=== PATIENT | female | born 1935 | race Caucasian/White ===

== ENCOUNTER → 2016-11-26 | Outpatient (REF) | payer MEDICARE, SELFPAY ==
[2016-11-26 22:41] LABS: International Normalized Ratio 1.9; Prothrombin Time (Protime)PT. 20.8 SECONDS (11.7-14.9)
[2016-11-26 22:59] LABS: Digoxin Level 0.98 ng/mL (0.80-2.00)
== END | disposition home or self-care (01) ==
LOC: OLS.DANBUR 22:10
PROVIDERS: Family Provider Family Medicine Geriatric Medicine; PCP Family Medicine Geriatric Medicine
DX: I48.91 Unspecified atrial fibrillation (principal); N17.9 Acute kidney failure, unspecified; Z51.81 Encounter for therapeutic drug level monitoring
CPT/HCPCS: 80162; 85610

== ENCOUNTER 2017-03-12 14:21 | Outpatient (RCR) | payer MEDICARE, SELFPAY ==
[2017-03-12 15:25] LABS: Color, Urine Yellow (Yellow); Glucose, Dipstick Normal (Normal); Ketone-Dipstick Negative (Negative); Leukocyte Esterase-Dipstick Negative /ul (Negative); Nitrite-Dipstick Negative (Negative); Occult Blood-Urine Negative /ul (Negative); Protein-Dipstick Negative (Negative); Specific Gravity, Urine 1.015 (1.002-1.030); Urine Bilirubin Dipstick Negative (Negative); Urine Clarity Clear (Clear); Urine Urobilinogen Normal (Normal)
== END 2017-03-18 23:59 ==
LOC: HHLAB 14:21
PROVIDERS: Family Provider Family Medicine Geriatric Medicine; PCP Family Medicine Geriatric Medicine; Visit Provider Family Medicine Geriatric Medicine
DX: R30.0 Dysuria (principal)
CPT/HCPCS: 81002; 87086; 87088

== ENCOUNTER → 2017-03-30 13:14 | Outpatient (CLI) | payer MEDICARE, SELFPAY ==
[2017-03-30 13:17] LABS: Bacteria 0 SEEN /hpf (None Seen); Mucous, Urine 0 SEEN /hpf (<or=2+); Red Blood Cells-Urine 0 SEEN /hpf (0-5)
[2017-03-30 16:41] LABS: Color, Urine Yellow (Yellow); Glucose, Dipstick Normal (Normal); Ketone-Dipstick Negative (Negative); Leukocyte Esterase-Dipstick 25 /ul (Negative); Nitrite-Dipstick Negative (Negative); Occult Blood-Urine Negative /ul (Negative); Protein-Dipstick 30 mg/dl (Negative); Urine Bilirubin Dipstick Negative (Negative); Urine Clarity Clear (Clear); Urine Urobilinogen Normal (Normal)
[2017-03-30 16:55] LABS: Squamous Epithelial Cells - UA 0-5 SEEN /hpf (5-10); White Blood Cells 0-5 SEEN /hpf (0-5)
== END ==
PROVIDERS: Family Provider Family Medicine; PCP Family Medicine; Visit Provider Family Medicine
DX: N39.0 Urinary tract infection, site not specified (principal)
CPT/HCPCS: 81001; 87086; 87088

== ENCOUNTER 2017-04-10 13:01 | Outpatient (RCR) | payer MEDICARE, SELFPAY ==
[2017-04-10 14:11] LABS: Color, Urine Yellow (Yellow); Glucose, Dipstick Normal (Normal); Ketone-Dipstick Negative (Negative); Leukocyte Esterase-Dipstick 25 /ul (Negative); Nitrite-Dipstick Negative (Negative); Occult Blood-Urine Negative /ul (Negative); Protein-Dipstick 30 mg/dl (Negative); Specific Gravity, Urine 1.015 (1.002-1.030); Urine Bilirubin Dipstick Negative (Negative); Urine Clarity Sl. Cloudy (Clear); Urine Urobilinogen Normal (Normal)
== END 2017-04-15 23:59 ==
LOC: HHLAB 13:01
PROVIDERS: Family Provider Family Medicine; PCP Family Medicine; Visit Provider Family Medicine Geriatric Medicine
DX: R30.0 Dysuria (principal); E11.9 Type 2 diabetes mellitus without complications; I11.0 Hypertensive heart disease with heart failure; I50.32 Chronic diastolic (congestive) heart failure
CPT/HCPCS: 81002; 87086; 87088

== ENCOUNTER 2017-05-27 17:58 | Emergency (ER) | payer MEDICARE, SELFPAY ==
[2017-05-27 18:01] VITALS: BP 153/79; PULSE 74; RESP 16; TEMP 37.1; O2SAT 94; BMI 25.7
--- NOTE | 2017-05-27 18:23 | CT_ITS ---
STUDY: CT BRAIN WITHOUT CONTRAST REASON FOR EXAM: Female, 82 years old. Trauma RADIATION DOSAGE (If Supplied By Facility): CTDIvol = ( 44.99 ) mGy, DLP = ( 829.85 ) mGycm TECHNIQUE: Transaxial CT imaging of the brain was performed without administration of intravenous contrast material. Individualized dose optimization techniques were used for this CT. COMPARISON: Prior study of 12/03/2016 FINDINGS: There is a small scalp hematoma of the right frontal region. There is no evidence of calvarial fracture. There is hyperostosis frontalis interna. Normal size ventricles and extra-axial spaces for the patient's age. There are areas of decreased attenuation within the white matter tracts of the supratentorial brain, consistent with microvascular disease changes. Normal basal ganglia and thalami. Normal brainstem. Normal cerebellum. There is no intracranial hemorrhage. There are no findings of an acute ischemic infarction. Normal visualized paranasal sinuses. CT/Brain/Head without Contrast IMPRESSION: Chronic involutional changes of the brain. Small scalp hematoma of the right frontal region. Hyperostosis frontalis interna which is of no clinical significance. There is no intracranial hemorrhage or calvarial fracture. Electronically Signed: Bon Mora MD at 19:22 EDT , Service support ,
[2017-05-27 19:14] VITALS: BP 148/77; PULSE 75; RESP 16; O2SAT 94
--- NOTE | 2017-05-27 20:09 | ED.RN ---
PT PASSED AMBULATION WITH WALKER.
--- NOTE | 2017-05-27 20:14 | ED.VISSUMM ---
- ER Visit Summary Date of Service: 05/27/17 Chief Complaint: Fall History of Present Illness: The patient is a 82 F who states that she lost her balance while rushing to the bathroom and using her walker. She fell. She did strike her head. She did not lose consciousness. Patient states she has right shoulder pain from a fall last September that is not changed from her baseline. Patient has no vision changes, nausea, or vomiting. Patient is currently on Eliquis for A. fib and DVT. Physical Examination: Vital signs are unremarkable. Patient's lying in bed no acute distress. She is alert and talkative. Head neck examination reveals an approximate 3 cm diameter hematoma on the superior aspect of the right forehead. No open wounds are noted. TMs are clear with no hemotympanum. She has no C-spine tenderness. Heart is regular rate and rhythm. On lung sounds are clear. Abdomen is soft nontender. Extremity examination reveals no focal tenderness over the shoulders. She has good strength and sensation. Test Results: CT scan of the head reveals small scalp hematoma the right frontal region. There are chronic involutional changes noted. No intracranial hemorrhage noted. Emergency Department Course and Treatment: On repeat examination patient is resting comfortably with no complaints. She is able to get up and ambulate with her walker without difficulty. She will be discharged with her son at this time. Treatment Plan: [] Disposition: Discharge Impression: 1. Mechanical fall 2. Head contusion This note was generated with [employer] dictation software. It may contain incorrect words, spelling, and punctuation that were not noted in review of the chart prior to signing ED Disposition - Plan for ED Patient: Disposition: Home or Assisted Living Chief Complaint: Head Injury Instructions: ED Head Injury Closed, ED Hematoma Referrals: Saroj Fajardo DO [Primary Care Provider] - As Needed
[2017-05-27 20:29] VITALS: BP 154/90; PULSE 74; RESP 16; O2SAT 94
== END 2017-05-27 20:29 | disposition home or self-care (01) ==
PROVIDERS: Emergency Provider Emergency Medicine; Family Provider Family Medicine; PCP Family Medicine
DX: S00.83XA Contusion of other part of head, initial encounter (principal); W01.10XA Fall on same level from slipping, tripping and stumbling with subsequent striking against unspecified object, initial encounter; Y93.01 Activity, walking, marching and hiking; Y92.9 Unspecified place or not applicable; Y99.9 Unspecified external cause status; I11.0 Hypertensive heart disease with heart failure; I50.9 Heart failure, unspecified; I48.91 Unspecified atrial fibrillation; E11.9 Type 2 diabetes mellitus without complications; F03.90 Unspecified dementia, unspecified severity, without behavioral disturbance, psychotic disturbance, mood disturbance, and anxiety; K21.9 Gastro-esophageal reflux disease without esophagitis; Z79.01 Long term (current) use of anticoagulants; Z79.899 Other long term (current) drug therapy; Z86.718 Personal history of other venous thrombosis and embolism
CPT/HCPCS: 70450; 99284

== ENCOUNTER → 2017-09-23 11:34 | Outpatient (CLI) | payer MEDICARE, SELFPAY ==
[2017-09-23 12:30] LABS: Absolute Lymphocyte Count 1.27 X10^3/ul (0.83-4.51); Absolute Neutrophil Count 3.6 X10^3/uL (2.0-7.7); Basophil# 0.01 X10^3/uL; Basophil% 0.2 % (0-1); Eosinophil# 0.16 X10^3/uL; Eosinophils% 2.9 % (0-5); Hematocrit 46.9 % (37-47); Hemoglobin 15.1 g/dl (12.0-15.0); Lymphocyte # 1.27 X10^3/ul (4.0); Lymphocyte % 22.9 % (19-41); Mean Corp Hgb Conc 32.2 g/gl (32-36); Mean Platelet Vol. 10.6 fl (6.2-12.0); Monocyte# 0.45 X10^3/uL; Monocyte% 8.1 % (0-10); Neutrophil # 3.64 X10^3/uL (2.7-7.7); Neutrophil % 65.7 % (47-70); Platelet Count 165 K/mm3 (150-450); RBC Distribution Width CV 14.9 % (11.6-14.6); Red Blood Count 5.39 M/mm3 (4.2-5.4); White Blood Count 5.5 K/mm3 (4.4-11.0)
[2017-09-23 12:32] LABS: POSITIVE COUNT NO; POSITIVE DIFFERENTIAL NO; POSITIVE MORPHOLOGY NO
[2017-09-23 12:57] LABS: Hemoglobin A1c 6.9 % (4.2-6.3)
[2017-09-23 13:23] LABS: ALB/GLOB Ratio 0.9 RATIO (0.9-2.4); AST(SGOT) 16 U/L (15-37); Alanine Aminotransfer ALT/SGPT 15 U/L (13-56); Albumin, Serum 3.7 g/dL (3.2-5.0); Alkaline Phosphatase 74 U/L (45-117); Anion Gap 7 (5-15); BUN 30 mg/dL (7-18); BUN/Creat Ratio 33.2 RATIO (10-20); Calcium,Total 9.7 mg/dL (8.5-10.1); Chloride 107 mmol/L (98-107); Cholesterol 180 mg/dL (200); EST Glomerular Filtration Rate 63 mL/min (>60); Est Glom Filt Rate - Afr Amer 77 mL/min (>60); Glucose 163 mg/dL (74-106); High Density Lipoprotein 55 mg/dL; Potassium 4.3 mmol/L (3.5-5.1); Protein, Total 7.7 g/dL (6.4-8.2); Sodium Level 141 mmol/L (136-145); Thyroid Stim Hormone (TSH) 3.54 uIU/mL (0.358-3.74); Triglycerides 168 mg/dL; Very Low Density Lipoprotein 34 mg/dL (5-40)
== END ==
PROVIDERS: Family Provider Family Medicine; PCP Family Medicine; Visit Provider Family Medicine
DX: E11.9 Type 2 diabetes mellitus without complications (principal); I50.9 Heart failure, unspecified; E78.5 Hyperlipidemia, unspecified; E03.9 Hypothyroidism, unspecified
CPT/HCPCS: 36415; 80053; 80061; 83036; 84443; 85025

== ENCOUNTER → 2017-09-25 15:33 | Outpatient (CLI) | payer MEDICARE, SELFPAY ==
[2017-09-25 16:28] LABS: Microalbumin:Creatinine Ratio 181.4 mg/g CRE (<30 mg/g CRE)
== END ==
PROVIDERS: Family Provider Family Medicine; PCP Family Medicine; Visit Provider Family Medicine
DX: E11.9 Type 2 diabetes mellitus without complications (principal); I50.9 Heart failure, unspecified; E78.5 Hyperlipidemia, unspecified; E03.9 Hypothyroidism, unspecified
CPT/HCPCS: 82043; 82570

== ENCOUNTER → 2017-12-02 13:48 | Outpatient (CLI) | payer MEDICARE, SELFPAY ==
[2017-12-02 13:52] LABS: Mucous, Urine 0 SEEN /hpf (<or=2+)
[2017-12-02 15:49] LABS: Absolute Lymphocyte Count 1.18 X10^3/ul (0.83-4.51); Absolute Neutrophil Count 4.1 X10^3/uL (2.0-7.7); Basophil# 0.02 X10^3/uL; Basophil% 0.3 % (0-1); Eosinophil# 0.15 X10^3/uL; Eosinophils% 2.5 % (0-5); Hematocrit 45.2 % (37-47); Hemoglobin 14.8 g/dl (12.0-15.0); Lymphocyte # 1.18 X10^3/ul (4.0); Lymphocyte % 19.6 % (19-41); Mean Corp Hgb Conc 32.7 g/gl (32-36); Mean Corpuscular Hgb 28.7 pg (27.0-32.0); Mean Corpuscular Volume 87.8 fL (81-99); Mean Platelet Vol. 11.2 fl (6.2-12.0); Monocyte% 8.3 % (0-10); Neutrophil # 4.13 X10^3/uL (2.7-7.7); Neutrophil % 68.8 % (47-70); Platelet Count 173 K/mm3 (150-450); RBC Distribution Width CV 14.7 % (11.6-14.6); Red Blood Count 5.15 M/mm3 (4.2-5.4)
[2017-12-02 15:55] LABS: POSITIVE COUNT NO; POSITIVE DIFFERENTIAL NO; POSITIVE MORPHOLOGY NO
[2017-12-02 15:56] LABS: Ferritin 78 ng/mL (8-252); Iron 94 ug/dL (50-170)
[2017-12-02 16:06] LABS: Color, Urine Yellow (Yellow); Glucose, Dipstick Normal (Normal); Ketone-Dipstick Negative (Negative); Leukocyte Esterase-Dipstick 500 /ul (Negative); Nitrite-Dipstick Negative (Negative); Occult Blood-Urine 150 /ul (Negative); Protein-Dipstick 30 mg/dl (Negative); Specific Gravity, Urine 1.015 (1.002-1.030); Urine Bilirubin Dipstick Negative (Negative); Urine Clarity Cloudy (Clear); Urine Urobilinogen Normal (Normal)
[2017-12-02 16:16] LABS: Red Blood Cells-Urine 25-50 SEEN /hpf (0-5); Squamous Epithelial Cells - UA 0-5 SEEN /hpf (5-10); White Blood Cells 50-100 SEEN /hpf (0-5)
[2017-12-02 16:17] LABS: Bacteria RARE /hpf (None Seen); Yeast-Urine 1+ /hpf (None Seen)
== END ==
PROVIDERS: Family Provider Family Medicine; PCP Family Medicine; Visit Provider Family Medicine
DX: R30.0 Dysuria (principal); E11.21 Type 2 diabetes mellitus with diabetic nephropathy; D50.9 Iron deficiency anemia, unspecified; I10 Essential (primary) hypertension; E78.5 Hyperlipidemia, unspecified
CPT/HCPCS: 36415; 81001; 82728; 83036; 83540; 85025; 87086; 87088; 87186

== ENCOUNTER 2018-02-15 13:26 | Emergency (ER) | payer MEDICARE, SELFPAY ==
[2018-02-15 13:28] VITALS: BP 168/76; PULSE 95; RESP 18; TEMP 36.8; O2SAT 88; BMI 26.6
[2018-02-15 14:06] LABS: Absolute Lymphocyte Count 0.93 X10^3/ul (0.83-4.51); Absolute Neutrophil Count 6.3 X10^3/uL (2.0-7.7); Eosinophil# 0.06 X10^3/uL; Eosinophils% 0.8 % (0-5); Hematocrit 42.8 % (37-47); Hemoglobin 14.2 g/dl (12.0-15.0); Lymphocyte # 0.93 X10^3/ul (4.0); Lymphocyte % 11.9 % (19-41); Mean Corp Hgb Conc 33.2 g/gl (32-36); Mean Corpuscular Hgb 28.5 pg (27.0-32.0); Mean Corpuscular Volume 85.8 fL (81-99); Mean Platelet Vol. 10.1 fl (6.2-12.0); Monocyte# 0.53 X10^3/uL; Monocyte% 6.8 % (0-10); Neutrophil % 80.4 % (47-70); POSITIVE COUNT NO; POSITIVE DIFFERENTIAL NO; POSITIVE MORPHOLOGY NO; Platelet Count 143 K/mm3 (150-450); RBC Distribution Width CV 13.7 % (11.6-14.6); RBC Distribution Width SD 42.9 fl (35.1-43.9); Red Blood Count 4.99 M/mm3 (4.2-5.4); White Blood Count 7.8 K/mm3 (4.4-11.0)
[2018-02-15 14:09] VITALS: PULSE 80; RESP 16; TEMP 36.7; O2SAT 96
[2018-02-15 14:23] LABS: AST(SGOT) 9 U/L (15-37); Alanine Aminotransfer ALT/SGPT 16 U/L (13-56); Albumin, Serum 3.4 g/dL (3.2-5.0); Alkaline Phosphatase 73 U/L (45-117); Anion Gap 12 (5-15); BUN 21 mg/dL (7-18); BUN/Creat Ratio 27.5 RATIO (10-20); Calcium,Total 9.3 mg/dL (8.5-10.1); Chloride 105 mmol/L (98-107); Creatinine, Serum 0.76 mg/dL (0.55-1.02); EST Glomerular Filtration Rate 77 mL/min (>60); Est Glom Filt Rate - Afr Amer 93 mL/min (>60); Globulin 3.4 g/dL (2.2-4.2); Glucose 219 mg/dL (74-106); Lipase 121 U/L (73-393); Potassium 3.7 mmol/L (3.5-5.1); Protein, Total 6.8 g/dL (6.4-8.2); Sodium Level 142 mmol/L (136-145)
--- NOTE | 2018-02-15 14:37 | ED.DCSUM_ITS ---
- ER Visit Summary Date of Service: 02/15/18 Chief Complaint: Nausea vomiting diarrhea History of Present Illness: The patient is a 82 F who has had nausea vomiting and diarrhea. Is been ongoing for the past 5 days. She has some mild abdominal pain with it. She complains of diarrhea with some darkness in it. She vomited twice. She tried cholestyramine and Imodium to help with the diarrhea. She has not had a fever. No other sick contacts at home. She does have a history of A. fib and DVT. Physical Examination: Vital signs reviewed. HEENT exam unremarkable. Heart is regular rate and rhythm without murmurs. Lungs are clear to auscultation. Abdomen is soft and nontender. Extremities reveal no edema. Skin exam normal. Neurologic exam normal. Test Results: Hemoglobin is normal. BUN 21. AST 9 Emergency Department Course and Treatment: Patient was given a liter of fluids. She feels much better. She does not want to stay in the hospital. I feels appropriate to treat her as an outpatient with [facility]. She will follow-up with her PCP Treatment Plan: [] Disposition: Discharge Impression: Nausea vomiting and diarrhea This note was generated with [employer] dictation software. It may contain incorrect words, spelling, and punctuation that were not noted in review of the chart prior to signing ED Disposition - Plan for ED Patient: Chief Complaint: Nausea/Vomiting/Diarrhea Referrals: Saroj Fajardo DO [Primary Care Provider] -
--- NOTE | 2018-02-15 14:37 | ED.DEP ---
ED Disposition - Plan for ED Patient: Disposition: Home or Assisted Living Chief Complaint: Nausea/Vomiting/Diarrhea Instructions: ED Gastroenteritis Viral Prescriptions: Ondansetron [Zofran Odt] 4 mg PO Q8H PRN PRN #10 tab PRN Reason: Nausea Diphenoxylate/Atrop [Lomotil] 1 tab PO TID PRN PRN #15 tab PRN Reason: Diarrhea Referrals: Saroj Fajardo DO [Primary Care Provider] -
[2018-02-15 15:37] VITALS: BP 152/76; PULSE 78; RESP 17; O2SAT 95
--- NOTE | 2018-02-15 15:38 | ED.RN ---
REVIEWED D/C INSTRUCTIONS, FOLLOW UP CARE, PRESCRIPTIONS, AND S/S THAT WOULD WARRANT A RETURN TO THE ED WITH PT. PT VERBALIZED AN UNDERSTANDING AND DENIES FURTHER QUESTIONS FOR THIS RN. PT SKIN P/W/D, RESP EVEN AND UNLABORED, PT A&O X 3, NO DISTRESS NOTED. PT ASSISTED OUT OF ED IN WHEELCHAIR.
== END 2018-02-15 15:39 | disposition home or self-care (01) ==
PROVIDERS: Emergency Provider Emergency Medicine; Family Provider Family Medicine; PCP Family Medicine
DX: R11.2 Nausea with vomiting, unspecified (principal); R19.7 Diarrhea, unspecified; R10.9 Unspecified abdominal pain; I48.91 Unspecified atrial fibrillation; I50.9 Heart failure, unspecified; K21.9 Gastro-esophageal reflux disease without esophagitis; F32.9 Major depressive disorder, single episode, unspecified; Z79.01 Long term (current) use of anticoagulants; Z79.899 Other long term (current) drug therapy; Z86.718 Personal history of other venous thrombosis and embolism
CPT/HCPCS: 80053; 83690; 85025; 96360; 96361; 99285; J7040; J2405

== ENCOUNTER → 2018-04-21 13:10 | Outpatient (CLI) | payer MEDICARE, SELFPAY ==
[2018-04-21 13:12] LABS: Bacteria 0 SEEN /hpf (None Seen)
[2018-04-21 16:30] LABS: Color, Urine Yellow (Yellow); Glucose, Dipstick Normal (Normal); Ketone-Dipstick Negative (Negative); Leukocyte Esterase-Dipstick 500 /ul (Negative); Nitrite-Dipstick Positive (Negative); Occult Blood-Urine 25 /ul (Negative); Protein-Dipstick 30 mg/dl (Negative); Specific Gravity, Urine 1.015 (1.002-1.030); Urine Bilirubin Dipstick Negative (Negative); Urine Clarity Cloudy (Clear); Urine Urobilinogen Normal (Normal)
[2018-04-21 16:41] LABS: Mucous, Urine 2+ /hpf (<or=2+); Red Blood Cells-Urine 0 SEEN /hpf (0-5); Squamous Epithelial Cells - UA 10-25 SEEN /hpf (5-10); White Blood Cells >100 SEEN /hpf (0-5)
== END ==
PROVIDERS: Family Provider Family Medicine; PCP Family Medicine; Visit Provider Family Medicine
DX: R19.7 Diarrhea, unspecified (principal); R15.9 Full incontinence of feces; R15.2 Fecal urgency; R30.0 Dysuria
CPT/HCPCS: 81001; 83630; 87077; 87086; 87088; 87177; 87186; 87209; 87493; 87506

== ENCOUNTER 2018-04-28 01:21 | Inpatient (IN) | payer MEDICARE, SELFPAY ==
[2018-04-28] VITALS (15 sets, daily range): BP systolic 108–134; BP diastolic 44–74; PULSE 75–118; RESP 16–30; TEMP 36.8–38.2; O2SAT 89–95; BMI 25.8; BMI 25.2
--- NOTE | 2018-04-28 01:45 | RAD_ITS ---
STUDY: X-RAY CHEST REASON FOR EXAM: Female, 83 years old. Shortness of breath TECHNIQUE: Frontal and lateral views of the chest. COMPARISON: December 03, 2016. FINDINGS: Chronic lung changes. Low lung volumes. No pneumothorax. No pleural effusion. No focal consolidation. Normal size heart. Aortic calcifications. Dual-lead cardiac pacemaker device on the left. EKG leads artifacts. There are diffuse degenerative changes of the visualized thoracic spine. There is degenerative osteoarthritis of the bilateral shoulders. IVC filter. RAD/Chest PA and Lateral IMPRESSION: Chronic changes. No acute cardiopulmonary disease identified. Electronically Signed: Adrien Shabazz, at 2:51 EDT Tel , Service support ,
--- NOTE | 2018-04-28 01:45 | EKG12_ITS ---
Test Reason : Blood Pressure : / mmHG Vent. Rate : 110 BPM Atrial Rate : 110 BPM P-R Int : 146 ms QRS Dur : 164 ms QT Int : 396 ms P-R-T Axes : 065 -60 103 degrees QTc Int : 535 ms Atrial-sensed ventricular-paced rhythm Abnormal ECG Confirmed by CHI SAEZ, OREN ([id number]), editorial writer YURY HERNANDEZ ([id number]) on 04/29/2018 11:27:01 AM Referred By: Anisa Benjamin Confirmed By:OREN MIRELES MD
--- NOTE | 2018-04-28 01:46 | CT_ITS ---
STUDY: CT BRAIN WITHOUT CONTRAST REASON FOR EXAM: Female, 83 years old. Trauma RADIATION DOSAGE (If Supplied By Facility): CTDIvol = ( 44.99 ) mGy, DLP = ( 812.98 ) mGycm TECHNIQUE: Transaxial CT imaging of the brain was performed without administration of intravenous contrast material. Individualized dose optimization techniques were used for this CT. COMPARISON: None. FINDINGS: Normal soft tissue structures. There is hyperostosis frontalis internus. There is mild cerebral atrophy with widening of the extra-axial spaces and ventricular dilatation. There are areas of decreased attenuation within the white matter tracts of the supratentorial brain, consistent with microvascular disease changes. Normal basal ganglia and thalami. Normal brainstem. Normal cerebellum. There is no intracranial hemorrhage. There are no findings of an acute ischemic infarction. Paranasal sinus disease. Carotid and vertebral artery calcifications. CT/Brain/Head without Contrast IMPRESSION: Chronic involutional and white matter changes. No acute territorial infarct or intracranial hemorrhage. If patient's symptomology persists or there is continuing clinical concern MRI or follow-up CT scan can be performed. Electronically Signed: Adrien Shabazz, at 3:27 EDT Tel , Service support ,
--- NOTE | 2018-04-28 01:46 | CT_ITS ---
STUDY: CT CERVICAL SPINE WITHOUT CONTRAST REASON FOR EXAM: Female, 83 years old. Trauma RADIATION DOSAGE (If Supplied By Facility): CTDIvol = ( 18.36 ) mGy, DLP = ( 335.85 ) mGycm TECHNIQUE: High resolution transaxial imaging was performed without contrast material. Sagittal and coronal images were reconstructed. Individualized dose optimization techniques were used for this CT. COMPARISON: None FINDINGS: Normal cervical lordosis. Multilevel degenerative changes of the cervical spine. No acute fracture or subluxation identified. Facet arthropathy. Normal visualized soft tissue structures. CT/Spine Cervical without Contras IMPRESSION: Multilevel degenerative changes. No acute fracture or subluxation. Electronically Signed: Adrien Shabazz, at 3:32 EDT Tel , Service support ,
--- NOTE | 2018-04-28 01:46 | RAD_ITS ---
STUDY: X-RAY - RIGHT SHOULDER REASON FOR EXAM: Female, 83 years old. Patient fell TECHNIQUE: 4 view(s) of the shoulder. COMPARISON: None. FINDINGS: There are degenerative changes of the acromioclavicular joint. The glenohumeral articulation is well-maintained. Severe kyphosis of the thoracic spine. No fracture RAD/Shoulder min 2 Views IMPRESSION: No fracture. Degenerative changes of the acromioclavicular joint Electronically Signed: Jonathon Paige MD at 3:37 EDT Tel , Service support ,
[2018-04-28 02:18] LABS: Absolute Neutrophil Count 5.7 X10^3/uL (2.0-7.7); Basophil# 0.02 X10^3/uL; Basophil% 0.3 % (0-1); Eosinophil# 0.01 X10^3/uL; Eosinophils% 0.1 % (0-5); Hematocrit 44.1 % (37-47); Hemoglobin 14.5 g/dl (12.0-15.0); International Normalized Ratio 1.2; Lymphocyte % 7.5 % (19-41); Mean Corp Hgb Conc 32.9 g/gl (32-36); Mean Corpuscular Hgb 28.5 pg (27.0-32.0); Mean Corpuscular Volume 86.8 fL (81-99); Mean Platelet Vol. 10.7 fl (6.2-12.0); Monocyte# 0.48 X10^3/uL; Monocyte% 7.2 % (0-10); Neutrophil # 5.68 X10^3/uL (2.7-7.7); Neutrophil % 84.6 % (47-70); Platelet Count 114 K/mm3 (150-450); Prothrombin Time (Protime)PT. 15.2 SECONDS (11.7-14.9); RBC Distribution Width CV 14.5 % (11.6-14.6); Red Blood Count 5.08 M/mm3 (4.2-5.4); White Blood Count 6.7 K/mm3 (4.4-11.0)
[2018-04-28 02:19] LABS: Differential Indicated SCAN CRITERIA MET; POSITIVE COUNT NO; POSITIVE DIFFERENTIAL YES; POSITIVE MORPHOLOGY NO; Partial Thromboplast Time 28.3 Seconds (24.1-36.2)
[2018-04-28 02:26] LABS: AST(SGOT) 20 U/L (15-37); Alanine Aminotransfer ALT/SGPT 19 U/L (13-56); Albumin, Serum 3.5 g/dL (3.2-5.0); Alkaline Phosphatase 87 U/L (45-117); Anion Gap 10 (5-15); BUN 23 mg/dL (7-18); BUN/Creat Ratio 22.1 RATIO (10-20); Calcium,Total 8.8 mg/dL (8.5-10.1); Chloride 105 mmol/L (98-107); Creatinine, Serum 1.04 mg/dL (0.55-1.02); EST Glomerular Filtration Rate 54 mL/min (>60); Est Glom Filt Rate - Afr Amer 65 mL/min (>60); Estimated Creatinine Clearance 39.86 ml/min; Globulin 3.4 g/dL (2.2-4.2); Glucose 201 mg/dL (74-106); Potassium 4.6 mmol/L (3.5-5.1); Protein, Total 6.9 g/dL (6.4-8.2); Sodium Level 134 mmol/L (136-145)
[2018-04-28 02:36] LABS: Lactic Acid 2.7 mmol/L (0.4-2.0)
--- NOTE | 2018-04-28 02:59 | ED.RN ---
DR. SANTOS INFORMED OF PT LACTIC.
--- NOTE | 2018-04-28 03:13 | PCM.HP.STD ---
Problem List (1) UTI (urinary tract infection) Status: Acute Qualifiers: Urinary tract infection type: acute cystitis Hematuria presence: without hematuria Qualified Code(s): N30.00 - Acute cystitis without hematuria (2) Elevated lactic acid level Status: Acute (3) CKD (chronic kidney disease) stage 3, GFR 30-59 ml/min Status: Chronic (4) Sick sinus syndrome Status: Chronic (5) Atrial fibrillation Status: Chronic Qualifiers: Atrial fibrillation type: paroxysmal Qualified Code(s): I48.0 - Paroxysmal atrial fibrillation (6) Cardiomyopathy, nonischemic Status: Chronic (7) HLD (hyperlipidemia) Status: Chronic Qualifiers: Hyperlipidemia type: mixed hyperlipidemia Qualified Code(s): E78.2 - Mixed hyperlipidemia (8) HTN (hypertension) Status: Chronic Qualifiers: Hypertension type: essential hypertension Qualified Code(s): I10 - Essential (primary) hypertension (9) Hypothyroidism Status: Chronic Qualifiers: Hypothyroidism type: unspecified Qualified Code(s): E03.9 - Hypothyroidism, unspecified (10) Chronic diastolic (congestive) heart failure Status: Chronic (11) Iron deficiency anemia Status: Chronic Qualifiers: Iron deficiency anemia type: unspecified iron deficiency Qualified Code(s): D50.9 - Iron deficiency anemia, unspecified (12) GERD (gastroesophageal reflux disease) Status: Chronic Qualifiers: Esophagitis presence: esophagitis presence not specified Qualified Code(s): K21.9 - Gastro-esophageal reflux disease without esophagitis (13) Cardiac pacemaker in situ Status: Chronic (14) DM2 (diabetes mellitus, type 2) Status: Chronic Qualifiers: Diabetes mellitus superintendent container terminal insulin use: without senior care use Diabetes mellitus complication status: with unspecified complications Qualified Code(s): E11.8 - Type 2 diabetes mellitus with unspecified complications History of Present Illness Date of Admission: 04/28/18 Chief Complaint: Fall, debility The patient is an 83 y/o F w/ PMHx: Chronic atrial fibrillation, Non-ischemic Cardiomyopathy, Chronic Diastolic CHF, Diabetes mellitus type II, Gout, Pulmonary HTN, Overweight, Anxiety and Depression, Hypothyroidism, History of Sick sinus syndrome, Former Tobacco use who presents to the [facility] ED on 04/28/18 with history of recent fall at home secondary to her walker being mildly out of reach in addition to notably worsened weakness recently with acute UTI, falling onto her walker initially on her right shoulder and eventually falling onto the front of her head on a garbage can with no loss of consciousness with acute on chronic right shoulder discomfort following. She does note that she was recently initiated on antibiotic therapy for urinary tract infection with review of prior results noting presumptive E. coli and enterococcal faecalis UTI on 04/21/18 resistance only to streptomycin and tetracycline otherwise near garcia sensitivity. She states she has continued to have some dysuria, nausea, poor oral intake since recent UTI diagnosis despite recent antibiotic therapy which she cannot recall. Work-up in the ED included T 98.6, heart rate 118, BP 110/62, respiratory rate 18, initially 89% on room room air--> 95% on 2 L nasal cannula, BC with WBC 6.7, hemoglobin 14.5, platelet 114 with left shift, coags not market aside PT mildly elevated 15.2, CMP with sodium 134, carbon dioxide 19, BUN/Cr 23/1.04 (baseline 0.7), glucose 201, lactic acid 2.7, UA and urine culture requested per ED and pending, blood culture x2 per ED pending, chest x-ray with no acute cardiopulmonary process, CT brain and cervical spine as well as plain film right shoulder pending upon evaluation of patient. Past Medical History Past Medical History (Chronic Problems): Chronic Problems (Last Reviewed 02/24/17 @ 07:57 by Altagracia Menard) CKD (chronic kidney disease) stage 3, GFR 30-59 ml/min (Chronic) Sick sinus syndrome (Chronic) Atrial fibrillation (Chronic) Cardiomyopathy, nonischemic (Chronic) HLD (hyperlipidemia) (Chronic) HTN (hypertension) (Chronic) Hypothyroidism (Chronic) Hypokalemia (Chronic) Chronic diastolic (congestive) heart failure (Chronic) Iron deficiency anemia (Chronic) GERD (gastroesophageal reflux disease) (Chronic) Cardiac pacemaker in situ (Chronic) DM2 (diabetes mellitus, type 2) (Chronic) CHF (congestive heart failure) (Chronic) Pulmonary hypertension (Chronic) Medical History: Medical History (Last Reviewed 02/24/17 @ 07:57 by Altagracia Menard) Fracture of right femur (Acute) S72.91XA Sick sinus syndrome (Chronic) I49.5 Atrial fibrillation (Chronic) I48.91 Cardiomyopathy, nonischemic (Chronic) I42.8 HLD (hyperlipidemia) (Chronic) E78.5 HTN (hypertension) (Chronic) I10 Hypothyroidism (Chronic) E03.9 Hypokalemia (Chronic) E87.6 Chronic diastolic (congestive) heart failure (Chronic) I50.32 Edema (Acute) R60.9 Acute deep vein thrombosis (DVT) of left lower extremity (Acute) I82.402 Iron deficiency anemia (Chronic) D50.9 GERD (gastroesophageal reflux disease) (Chronic) K21.9 Cardiac pacemaker in situ (Chronic) Z95.0 Hypotension (Acute) I95.9 UTI (urinary tract infection) (Acute) N39.0 DM2 (diabetes mellitus, type 2) (Chronic) E11.9 CHF (congestive heart failure) (Chronic) I50.9 Pulmonary hypertension (Chronic) I27.2 Acute kidney injury N17.9 Chronic diarrhea K52.9 Cystitis N30.90 Dementia F03.90 Depression F32.9 Encephalopathy G93.40 Gout M10.9 Postoperative anemia D64.9 H/O: hysterectomy Z90.710 Acute kidney injury (Inactive) N17.9 Afib (Inactive) I48.91 Chronic diarrhea (Inactive) K52.9 Cystitis (Inactive) N30.90 no culture obtained DVT of axillary vein, acute left (Inactive) I82.A12 Dementia (Inactive) F03.90 Depression (Inactive) F32.9 Diarrhea (Inactive) R19.7 Dvt femoral (deep venous thrombosis) (Inactive) I82.419 left leg Encephalopathy (Inactive) G93.40 Fall (Inactive) W19.XXXA Gout (Inactive) M10.9 Muscle spasm (Inactive) M62.838 Pacemaker (Inactive) Z95.0 Postoperative anemia (Inactive) D64.9 Thrush (Inactive) B37.0 Allergies amoxicillin [From Augmentin] Allergy (Verified 02/15/18 14:02) Other clavulanic acid [From Augmentin] Allergy (Verified 02/15/18 14:02) Other exenatide [From Byetta] Allergy (Verified 02/15/18 14:02) Other Penicillins [PCN] Allergy (Verified 02/15/18 14:02) Other simvastatin [From Zocor] Adverse Reaction (Severe, Verified 02/15/18 14:02) Myalgias prednisone Adverse Reaction (Unknown, Verified 02/15/18 14:02) Unknown metformin Adverse Reaction (Verified 02/15/18 14:02) Rash crestor Adverse Reaction (Intermediate, Uncoded 02/15/18 14:02) myalgia Home Medications: Ambulatory Orders Medication Instructions Recorded Apixaban [Eliquis] 5 mg PO BID #60 tab 01/12/17 Digoxin 125 mcg PO DAILY #30 01/13/17 Febuxostat [Uloric] 80 mg PO DAILY #30 01/13/17 Lactobacillus Acidophilus 1 ea PO BID #30 01/13/17 [Acidophilus] Levothyroxine [Synthroid] 88 mcg PO DAILY #30 01/13/17 Melatonin 3 mg PO QHS #30 01/13/17 Pantoprazole Sodium [Protonix] 40 mg PO DAILY #30 01/13/17 metoprolol tartrate 25 mg tablet 25 mg PO BID 03/24/17 Ascorbic Acid 500 mg PO BID 05/27/17 Methenamine Hippurate 1 gm PO BID 05/27/17 Mirtazapine 7.5 mg PO QHS 05/27/17 Diphenoxylate/Atrop [Lomotil] 1 tab PO TID PRN PRN #15 tab 02/15/18 Ondansetron [Zofran Odt] 4 mg PO Q8H PRN PRN #10 tab 02/15/18 Iron Polysaccharide Complex 150 mg PO DAILYCM 04/28/18 [Ferrex 150] Linagliptin [Tradjenta] 5 mg PO QHS 04/28/18 Surgical History: Surgical History (Last Updated 02/24/17 @ 07:47 by Altagracia Menard) History of bilateral knee replacement Z96.653 History of cholecystectomy Z90.49 Presence of vena cava filter Z95.828 implantation pacemakr pacemaker generator change Surgical History: cholecystectomy, hysterectomy, pacemaker implantation, total knee arthroplasty, - - Hysterectomy, bilateral total knee replacement, cholecystectomy, IVC filter, pacemaker placement, right hip fracture repair. Psychiatric History: Anxiety, Depression CAMPAIGN ANALYST History: No pertinent CAMPAIGN ANALYST history Lives: Alone Smoking Status: Never smoker Tobacco Use: Non-smoker Alcohol: None Drugs: None - *Family History Paternal Family History: Family History (Last Updated 01/20/17 @ 17:46 by Altagracia Menard) Father Myocardial infarction History Items: Heart Disease Maternal Family History: Family History (Last Updated 01/20/17 @ 17:46 by Altagracia Menard) Father Myocardial infarction History Items: - - No marked maternal family history including heart disease, diabetes or cancer. Review of Systems Constitutional: Reports: Anorexia, Malaise, Weakness, Fatigue. Denies: Chills, Fever, Weight Change HEENT: Denies: Head Aches, Sinus Congestion, Sinus Drainage Cardiovascular: Denies: Chest Pain, Palpitations Respiratory: Denies: Cough, Shortness of breath at rest, Sputum production Gastrointestinal: Reports: Diarrhea, Nausea. Denies: Abdominal Pain, Vomiting Genitourinary: Reports: Dysuria, Frequency, Hesitancy Musculoskeletal: Reports: Joint Pain, Shoulder Pain. Denies: Joint Tenderness Skin: Denies: Rash, Wounds Neurological: Denies: Numbness, Tingling, Focal weakness Psychiatric: Reports: Anxiety, Depression. Denies: Homicidal Ideations, Suicidal Ideations Hematologic/ Lymphatic: Reports: Anemia, Easy Bruising, Easy Bleeding VTE Information - Inpt Only VTE Present on Admission: No VTE Mechan Device Prophylaxis: SCD's VTE Pharm Prophylaxis ordered?: No Reason prophylaxis not ordered:: Treatment Not Indicated - On chronic Eliquis regimen. Patient Problems: Active and Suspected Problems (Last Reviewed 02/24/17 @ 07:57 by Altagracia Menard) Elevated lactic acid level (Acute) Subjective: Seated upright in ED bed, fatigued appearing. Objective: Physical Examination: General: awake, alert, oriented x 3 and cooperative, seated upright in the ED bed in no apparent distress but fatigued appearance. Skin: normal color, turgor, no icterus, cyanosis, is post fall with important lines of her walker on her right shoulder. HEENT: AT/NC, EOMI, PERRLA, only dry MM, no carotid bruits or JVD noted. Lungs: CTA bilaterally, moderate effort, moderate decrease BL bases, no rales, ronchi or wheezing. Heart: Regular rate and rhythm (paced); no gallop, rub audible, SM. Abdomen: soft, NTTP, ND, normal BS, no HSM. Extremities: no cyanosis, clubbing, or edema. Neurological: patient awake, alert, oriented x 3; cognitive function intact; pupils equally reactive to light and accomodation; cranial nerves II-XII grossly normal, moving all 4 extremities, no focal deficits, strength moderately to severely globally decreased secondary to acute presentation and recent illness. Psychiatric: affect appears fatigued, no acute evidence of depressive or anxiety feelings. - Physical Exam Vital Signs Temp Pulse Resp BP Pulse Ox 98.6 F 109 H 23 H 113/68 95 04/28/18 01:23 04/28/18 02:06 04/28/18 02:06 04/28/18 02:06 04/28/18 02:06 Oxygen Flow Rate (L/min) 95 Oxygen Delivery Method Nasal Cannula Weight: 165 lb Body Mass Index (BMI) 25.8 Finger Stick Blood Glucose 276 Laboratory Tests Past 24 Hrs 04/28/18 04/28/18 04/28/18 02:00 02:00 02:00 WBC 6.7 RBC 5.08 Hgb 14.5 Hct 44.1 MCV 86.8 MCH 28.5 MCHC 32.9 RDW 14.5 RDW Differential 46.0 H Plt Count 114 L MPV 10.7 Immature Gran % (Auto) 0.300 Neut % (Auto) 84.6 H Lymph % (Auto) 7.5 L [place] % (Auto) 7.2 Eos % (Auto) 0.1 Baso % (Auto) 0.3 Absolute Neuts (auto) 5.7 Absolute Lymphs (auto) 0.50 L Total Counted Not Reportable PT 15.2 H INR 1.2 APTT 28.3 Sodium 134 L Potassium 4.6 Chloride 105 Carbon Dioxide 19.0 L Anion Gap 10 BUN 23 H Creatinine 1.04 H Estim Creat Clear Calc 39.86 Est GFR (MDRD) Af Amer 65 Est GFR (MDRD) Non-Af 54 L BUN/Creatinine Ratio 22.1 H Glucose 201 H Lactic Acid Calcium 8.8 Total Bilirubin 0.40 AST 20 ALT 19 Alkaline Phosphatase 87 Total Protein 6.9 Albumin 3.5 Globulin 3.4 Albumin/Globulin Ratio 1.0 04/28/18 02:00 WBC RBC Hgb Hct MCV MCH MCHC RDW RDW Differential Plt Count MPV Immature Gran % (Auto) Neut % (Auto) Lymph % (Auto) [place] % (Auto) Eos % (Auto) Baso % (Auto) Absolute Neuts (auto) Absolute Lymphs (auto) Total Counted PT INR APTT Sodium Potassium Chloride Carbon Dioxide Anion Gap BUN Creatinine Estim Creat Clear Calc Est GFR (MDRD) Af Amer Est GFR (MDRD) Non-Af BUN/Creatinine Ratio Glucose Lactic Acid 2.7 H Calcium Total Bilirubin AST ALT Alkaline Phosphatase Total Protein Albumin Globulin Albumin/Globulin Ratio Assessment/Plan All Active Problems (Last Reviewed 02/24/17 @ 07:57 by Altagracia Menard) Elevated lactic acid level (Acute) Dyspnea, unspecified (Acute) Palpitations (Acute) Syncope and collapse (Acute) Chest pain (Acute) Fatigue (Acute) Fracture of right femur (Acute) Edema (Acute) Acute deep vein thrombosis (DVT) of left lower extremity (Acute) Hypotension (Acute) UTI (urinary tract infection) (Acute) The patient is an 83 y/o F w/ PMHx: Chronic atrial fibrillation, Non-ischemic Cardiomyopathy, Chronic Diastolic CHF, Diabetes mellitus type II, Gout, Pulmonary HTN, Overweight, Anxiety and Depression, Hypothyroidism, History of Sick sinus syndrome, Former Tobacco use who presents to the [facility] ED on 04/28/18 with history of recent fall at home secondary to her walker being mildly out of reach in addition to notably worsened weakness recently with acute UTI, falling onto her walker initially on her right shoulder and eventually falling onto the front of her head on a garbage can with no loss of consciousness with acute on chronic right shoulder discomfort following. (1) Acute enterococcal, E. coli urinary Tract Infection: Will admit to [facility], repeat UA and UCx pending per ED, recent culture as noted with E. coli and enterococcal, notable garcia sensitivities aside to agents, continue hydration, continue IVFs, monitor I/Os, continue IV Levaquin given sensitivities recently w/ renal dosing. Bld cx x 2 obtained in the ED. (2) Lactic acidosis: Mild, lactic acid 2.7, possibly secondary to recent infection and dehydration, vital signs upon presentation only notable for mild tachycardia with no market WBC severe elevation or lab values concerning for sepsis, continue to hydrate, trend lactic acid. (3) Mechanical Fall: Likely secondary to #1, #2, CT head and cervical spine with no acute findings per preliminary evaluation but final read pending, additionally plain film right shoulder with no acute findings on preliminary read but final read pending upon admission. Contain on fall precautions, PRN pain regimen, PT, OT, case management consulted for discharge planning. (4) CKD stage III w/ Mild Dehydration suspected/Renal insufficiency: Secondary to recent acute infection, possibly poor oral intake. Admission BUN/Cr 23/1.04, prior baseline creatinine noted to be 0.7-0.8. Will continue to hydrate, repeat BMP in AM. (5) Chronic atrial fibrillation: Contiue home metoprolol, digoxin, eliquis regimen. (6) Nonischemic Cardiomyopathy, Chronic Diastolic CHF: Continue home Eliquis, digoxin, metoprolol regimen. Patient has statin allergy not on an ALVINA inhibitor nor diuretics. Echocardiogram 09/2016 w/ EF 65-75%, stage I diastolic dysfunction, RVSP of 47 mmHg. Most recent cardiac catheterization 11/2007 w/ L main without significant apparent stenosis, LAD with first diagonal 10-25% stenosis, LCx normal, RCA normal, EF 45% from most recent cardiology evaluation. (7) Diabetes mellitus type II: Hold oral home regimen, ADA diet, accu checks w/ ISS. (8) Hypertension: Continue home regimen including metoprolol, PRN hydralazine. (9) Hyperlipidemia: Noted statin allergy. (10) Hx sick sinus syndrome: Status post pacemaker placement. (11) Anxiety and Depression: Continue home mirtazapine regimen. (12) Hypothyroidism: Continue home synthroid regimen. 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 (14) Chronic dysphagia: She was previously on nectar thickened liquids with soft diet but notes that she has discontinued this diet following graduation from speech however she cannot see if she was actually transition to a regular diet, speech consulted. (15) Chronic diarrhea: Continue home PRN loperamide regimen, recent C. difficile assessment performed on 04/21/18 negative. (16) GERD:PPI. (17) DVT Prophylaxis: SCDs, eliquis. (18) CODE status: Son is healthcare power of helper shear operator and her living will is in place. Discussed CODE status at length including difference between FULL code, DNR-CCA and DNR-CC status. Following discussions about the differences in these status, requested attenuation of DNR-CCA, no intubation status. Advanced Care Planning Face to Face Time: 16 minutes. Code Visit Inpatient E&M: 14197 Init Hosp L3 Procedures: 43776 Advncd Care Plan 30 Min
[2018-04-28 03:57] LABS: Mucous, Urine 0 SEEN /hpf (<or=2+)
[2018-04-28 04:30] LABS: Color, Urine Yellow (Yellow); Glucose, Dipstick Normal (Normal); Ketone-Dipstick 50 mg/dl (Negative); Leukocyte Esterase-Dipstick Negative /ul (Negative); Nitrite-Dipstick Negative (Negative); Occult Blood-Urine 10 /ul (Negative); Protein-Dipstick 15 mg/dl (Negative); Urine Bilirubin Dipstick Negative (Negative); Urine Clarity Sl. Cloudy (Clear); Urine Urobilinogen Normal (Normal)
[2018-04-28 04:42] LABS: Bacteria RARE /hpf (None Seen); Red Blood Cells-Urine 0-5 SEEN /hpf (0-5); Squamous Epithelial Cells - UA 0-5 SEEN /hpf (5-10); White Blood Cells 0-5 SEEN /hpf (0-5)
[2018-04-28] MEDS: 0.9% Normal Saline 1,000 ML 100 ML IV ×2 (05:15→16:11)
[2018-04-28] MEDS: levoFLOXacin IV 750 MG/150 ML BAG 100 MG IV (05:17)
[2018-04-28] MEDS: Levothyroxine 88 MCG Tablet PO (05:18)
[2018-04-28 06:06] LABS: Reflex Lactate? Y
[2018-04-28 06:59] LABS: Lactic Acid 1.1 mmol/L (0.4-2.0)
[2018-04-28] MEDS: Insulin Lispro 100 UNIT/ML INSULN.PEN SC ×4 (07:04→21:18)
[2018-04-28 07:05] LABS: Bedside Glucose 190 mg/dL (70-110)
[2018-04-28 07:16] LABS: Absolute Lymphocyte Count 0.41 X10^3/ul (0.83-4.51); Absolute Neutrophil Count 4.3 X10^3/uL (2.0-7.7); Basophil# 0.03 X10^3/uL; Basophil% 0.6 % (0-1); Differential Indicated SCAN CRITERIA MET; Hematocrit 41.8 % (37-47); Hemoglobin 13.8 g/dl (12.0-15.0); Lymphocyte # 0.41 X10^3/ul (4.0); Mean Corpuscular Hgb 28.6 pg (27.0-32.0); Mean Corpuscular Volume 86.7 fL (81-99); Mean Platelet Vol. 10.4 fl (6.2-12.0); Monocyte# 0.38 X10^3/uL; Monocyte% 7.4 % (0-10); Neutrophil # 4.29 X10^3/uL (2.7-7.7); POSITIVE COUNT NO; POSITIVE DIFFERENTIAL YES; POSITIVE MORPHOLOGY NO; Platelet Count 122 K/mm3 (150-450); RBC Distribution Width CV 14.6 % (11.6-14.6); RBC Distribution Width SD 46.1 fl (35.1-43.9); Red Blood Count 4.82 M/mm3 (4.2-5.4); White Blood Count 5.1 K/mm3 (4.4-11.0)
[2018-04-28 07:33] LABS: Anion Gap 9 (5-15); BUN 20 mg/dL (7-18); BUN/Creat Ratio 21.8 RATIO (10-20); Calcium,Total 8.4 mg/dL (8.5-10.1); Chloride 107 mmol/L (98-107); Creatinine, Serum 0.92 mg/dL (0.55-1.02); EST Glomerular Filtration Rate 62 mL/min (>60); Est Glom Filt Rate - Afr Amer 75 mL/min (>60); Estimated Creatinine Clearance 46.74 ml/min; Glucose 211 mg/dL (74-106); Potassium 4.5 mmol/L (3.5-5.1); Sodium Level 137 mmol/L (136-145)
[2018-04-28] MEDS: Iron Polysaccharide Complex 150 MG CAPSULE PO (08:21)
--- NOTE | 2018-04-28 08:54 | ED.DCSUM_ITS ---
- ER Visit Summary Date of Service: 04/28/18 Chief Complaint: Fall History of Present Illness: The patient is a [address] Bardales and Dr. Fajardo. Patient reports that she had gotten out of bed and was trying to get to her walker when she lost her balance and fell. She denies blow to the head o r loss of consciousness. She is on Eliquis. She denies any neck or back pain. She reports she has right shoulder pain is 10 out of 10 severity. However, the patient reports that this pain is chronic and not worse since the fall. She denies any wrist or hip pain. On review of systems patient complains of shortness of breath. States that that began tonight. She denies any chest pain. No fever or chills. She is been nauseated. No vomiting. No diarrhea. States that she has had diarrhea frequently for the past 2 years but, but not today. She does report that she had dysuria for quite a while. States that she has been on an antibiotic for the past 5 days for her dysuria. Physical Examination: Vitals: 97.6, 113/68, 109, 23, 95% on 2 L nasal cannula. 89% on room air which is hypoxic.. General: Well-nourished and well-developed. Head: Normocephalic atraumatic. Neck: Supple, no lymphadenopathy. No JVD. Mild diffuse tenderness palpation over the entire C-spine. No point tenderness. Full range of motion without any difficulty. Abrasion to the right trapezius muscle. Cardiovascular: Tachycardic regular rhythm with a 2 out of 6 systolic murmur Respiratory: No respiratory distress. Clear to auscultation bilaterally. Abdominal: Soft, nontender, nondistended, normal bowel sounds. No guarding, rebound, or peritoneal signs. Back: Nontender. Extremities: Moderate tenderness palpation to the right shoulder, no edema. Skin: Normal color, no rash. Neurologic: Alert and oriented ?3. Cranial nerves II through XII are intact. Normal strength and sensation. Psych: Normal affect. Test Results: EKG is AV paced at 110. Normal sensing and capture. Is not significantly changed from November 2016. CBC is more for platelets of 114, segmented neutrophils 85, lymphocytes of 8. Chem-7 shows a sodium 134, CO2 of 19, BUN 23, creatinine 1.04, glucose 201. LFTs are normal. Lipase 1.2. PTT is 28.3. UA is negative. Chest x-ray shows chronic changes. Right shoulder x-ray shows degenerative changes. CT brain and C-spine showed degenerative changes with no acute disease. Emergency Department Course and Treatment: Review of the patient's recent urine culture from April 21 shows enterococcus and E. coli that is pansensitive. Her urine does not appear infected today. Treatment Plan: Patient is hypoxic. She reports that she has not required oxygen at home for 2 years. She has a history of pulmonary hypertension. She is also tachycardic and hypotensive. She was discussed with Dr. Benjamin. She will be admitted to the hospital for further evaluation and treatment. Disposition: Admitted in serious condition. Impression: 1. Fall, mechanical. 2. Lactic acidosis. 3. Tachycardia with pacemaker. 4. Coagulopathy on Eliquis. This note was generated with [employer] dictation software. It may contain incorrect words, spelling, and punctuation that were not noted in review of the chart prior to signing ED Disposition - Plan for ED Patient: Disposition: Acute Care Hospital [facility]
[2018-04-28] MEDS: Menthol/Lanolin/Calamine/Znox 113 GM Tube 1 APPLIC TOPICAL ×2 (10:15→21:12)
[2018-04-28] MEDS: METHENAMINE HIPPURATE 1 GM TABLET PO ×2 (10:16→21:13)
[2018-04-28] MEDS: Febuxostat 40 MG TABLET 80 MG PO (10:17)
[2018-04-28] MEDS: Ascorbic Acid 500 MG Tablet PO ×2 (10:17→21:19)
[2018-04-28] MEDS: Digoxin 125 MCG Tablet PO (10:17)
[2018-04-28] MEDS: Metoprolol Tartrate 25 MG Tablet PO ×2 (10:17→21:13)
[2018-04-28] MEDS: Pantoprazole Sodium 40 MG Tablet PO (10:17)
--- NOTE | 2018-04-28 11:16 | CASEMGMT ---
Addendum entered by Nay Anderson 04/28/18 14:58: SW spoke w/pt and son again in room. SW explained w/pt's permission to son Wolf that we are looking into pt going to TCU at discharge if she qualifies. Son in agreement w/pt going to TCU at discharge. SW explained to pt and son that PT/OT are pending, but that once they are completed the information can be sent to insurance for precert. Pt and son state understanding. SW explained if pt is moving very well they may not approve however. Son states pt is much weaker than her usual self. SW explained will follow up w/pt in the morning, and we will try for TCU. SW called Ginny in TCU and let her know to go ahead and start precert once pt has completed PT/OT, she will do so. SW will follow up tomorrow. JANEEN Gonzalez, HEAD MACHINIST Original Note: SW spoke w/pt in room in regard to prior level of care and discharge plan. PCP: Dr. Fajardo Preferred Pharmacy: [facility] (was [facility]) Insurance/Prescription Coverage: [facility] LW/POA: Richard Gomes, son LNOK: Two sons, Richard and Wolf Living arrangements: Pt lives alone in one story home, Richard lives behind pt and Wolf lives in town Transportation: Sons take pt to appointments, she does not drive Prior level of functioning: Pt is independent with ADL's, does her own bathing, cooking, cleaning. Pt states does not have much of an appetite however. Pt declined referral to culinary instructor here, also declined Meals on Wheels referral. Pt's son Richard organizes her medications. DME/HHC/SNF: Pt uses a walker, has a raised toilet seat and a shower chair. Pt is not on home O2. Pt has been to TCU in the past, after a fall in 2017. Plan: PT/OT are pending Pt agreeable to SW checking on bed availability if needed in TCU after this admission also should it be needed. SW explained will come back to see pt again after she has gotten up w/therapy. SW called TCU, they may have a bed by Thursday or even . Pt would need a precert by insurance to go to TCU. SW will follow up once PT/OT evaluations are completed. JANEEN Gonzalez, HEAD MACHINIST
[2018-04-28 11:41] LABS: Bedside Glucose 159 mg/dL (70-110)
--- NOTE | 2018-04-28 12:33 | PCM.PN.HOSP ---
Patient Problems: Active and Suspected Problems (Last Reviewed 02/24/17 @ 07:57 by Altagracia Menard) Elevated lactic acid level (Acute) Subjective: Patient seen and examined this morning. She was admitted for UTI and mechanical fall. Still complains of feeling weak and is concerned that is not able to take care of herself at home. Of note, she has had numerous in the past. Review of systems otherwise negative. Labs and vitals reviewed. Patient is amenable to [facility] in a [facility]. Vitals/I&O's: Vital Signs Temp Pulse Resp BP Pulse Ox 99.3 F H 85 18 118/74 92 04/28/18 11:32 04/28/18 11:32 04/28/18 11:32 04/28/18 11:32 04/28/18 11:32 Oxygen Flow Rate (L/min) 2 Oxygen Delivery Method Room Air Weight: 165 lb 9.074 oz Body Mass Index (BMI) 25.2 Finger Stick Blood Glucose 276 Intake and Output for Last 24 Hours 04/26/18 04/27/18 04/28/18 23:59 23:59 23:59 Intake Total 815 / 815 Balance 815 / 815 General: Alert, Oriented x3, Cooperative, No apparent distress HEENT: Atraumatic, PERRLA, EOMI, Normocephalic Oral: Moist Mucosa Neck: Supple, No JVD, Negative Carotid Bruits Lungs: Clear to auscultation, Normal air movement, No rhonchi, No wheeze, No rales Cardiovascular: Regular rate, Regular Rhythm, Normal S1, Normal S2, No murmurs Abdomen: Bowel Sounds Present, Soft, Non Tender, Non-Distended, No Hepato-splenomegaly Extremities: No clubbing, No cyanosis, No edema, Capillary Refill Less than 3 Seconds Skin: No rashes, No breakdown Musculoskeletal: No Tenderness to Palpation of Joints or Extremities Lymphatic: No Cervical, Supraclavicular, or Inguinal Adenopathy Neurological: Cranial nerves II-XII grossly intact, Neuro grossly intact, Motor Exam 5/5 strength throughout Psych/Mental Status: Normal Affect, Appropriate, Alert and oriented to time, place, person, mood and affect Laboratory Results 04/28/18 02:00: WBC 6.7, RBC 5.08, Hgb 14.5, Hct 44.1, MCV 86.8, MCH 28.5, MCHC 32.9, RDW 14.5, RDW Differential 46.0 H, Plt Count 114 L, MPV 10.7, Immature Gran % (Auto) 0.300, Neut % (Auto) 84.6 H, Lymph % (Auto) 7.5 L, [place] % (Auto) 7.2, Eos % (Auto) 0.1, Baso % (Auto) 0.3, Absolute Neuts (auto) 5.7, Absolute Lymphs (auto) 0.50 L, Total Counted Not Reportable 04/28/18 02:00: PT 15.2 H, INR 1.2, APTT 28.3 04/28/18 02:00: Sodium 134 L, Potassium 4.6, Chloride 105, Carbon Dioxide 19.0 L, Anion Gap 10, BUN 23 H, Creatinine 1.04 H, Estim Creat Clear Calc 39.86, Est GFR (MDRD) Af Amer 65, Est GFR (MDRD) Non-Af 54 L, BUN/Creatinine Ratio 22.1 H, Glucose 201 H, Calcium 8.8, Total Bilirubin 0.40, AST 20, ALT 19, Alkaline Phosphatase 87, Total Protein 6.9, Albumin 3.5, Globulin 3.4, Albumin/Globulin Ratio 1.0 04/28/18 02:00: Lactic Acid 2.7 H 04/28/18 03:50: Urine Color Yellow, Urine Clarity Sl. Cloudy, Urine pH 5.0, Ur Specific [place] 1.020, Urine Protein 15 H, Urine Glucose (UA) Normal, Urine Ketones 50 H, Urine Occult Blood 10 H, Urine Nitrite Negative, Urine Bilirubin Negative, Urine Urobilinogen Normal, Ur Leukocyte Esterase Negative, Urine RBC 0-5 SEEN, Urine WBC 0-5 SEEN, Ur Squamous Epith Cells 0-5 SEEN, Urine Bacteria RARE, Urine Mucus 0 SEEN 04/28/18 06:28: Lactic Acid 1.1 04/28/18 06:55: WBC 5.1, RBC 4.82, Hgb 13.8, Hct 41.8, MCV 86.7, MCH 28.6, MCHC 33.0, RDW 14.6, RDW Differential 46.1 H, Plt Count 122 L, MPV 10.4, Immature Gran % (Auto) 0.000, Neut % (Auto) 84.0 H, Lymph % (Auto) 8.0 L, [place] % (Auto) 7.4, Eos % (Auto) 0.0, Baso % (Auto) 0.6, Absolute Neuts (auto) 4.3, Absolute Lymphs (auto) 0.41 L, Total Counted Not Reportable, Differential Comment COMMENT 04/28/18 06:55: Sodium 137, Potassium 4.5, Chloride 107, Carbon Dioxide 21.0, Anion Gap 9, BUN 20 H, Creatinine 0.92, Estim Creat Clear Calc 46.74, Est GFR (MDRD) Af Amer 75, Est GFR (MDRD) Non-Af 62, BUN/Creatinine Ratio 21.8 H, Glucose 211 H, Calcium 8.4 L 04/28/18 06:59: POC Glucose 190 H 04/28/18 11:35: POC Glucose 159 H Diagnostic Data Chest X-Ray 04/28/18 01:45 IMPRESSION: Chronic changes. No acute cardiopulmonary disease identified. Electronically Signed: Adrien Shabazz, at 2:51 EDT Tel , Service support , Brain CT 04/28/18 01:46 IMPRESSION: Chronic involutional and white matter changes. No acute territorial infarct or intracranial hemorrhage. If patient's symptomology persists or there is continuing clinical concern MRI or follow-up CT scan can be performed. Electronically Signed: Adrien Shabazz, at 3:27 EDT Tel , Service support , Cervical Spine CT 04/28/18 01:46 IMPRESSION: Multilevel degenerative changes. No acute fracture or subluxation. Electronically Signed: Adrien Shabazz, at 3:32 EDT Tel , Service support , Shoulder X-Ray 04/28/18 01:46 IMPRESSION: No fracture. Degenerative changes of the acromioclavicular joint Electronically Signed: Jonathon Paige MD at 3:37 EDT Tel , Service support , Current Medications Acetaminophen (Tylenol) 650 mg PO Q6H PRN PRN PRN Reason: Non-cardiac pain (mod-severe) Hydrocodone Bitart/Acetaminophen ([place] 5mg-325mg) 1 - 2 tablet PO Q6H PRN PRN PRN Reason: Moderate-severe pain Al Hydroxide/Mg Hydroxide (Mylanta Ii) 30 ml PO Q6H PRN PRN PRN Reason: Gastric burning Ascorbic Acid (Vitamin C) 500 mg PO BID [facility] Last Admin: 04/28/18 10:17 Dose: 500 mg Calamine/Phenol (Calmoseptine Ointment) 1 applic TOPICAL TID [facility]; Protocol Digoxin (Lanoxin) 125 mcg PO DAILY [facility] Last Admin: 04/28/18 10:17 Dose: 125 mcg Diphenoxylate HCl/Atropine (Lomotil) 1 tablet PO TID PRN PRN PRN Reason: DIARRHEA Hydralazine HCl (Apresoline Iv) 10 mg IV Q4H PRN PRN PRN Reason: SBP > 160 Sodium Chloride () 1,000 mls @ 100 mls/hr IV .Q10H [facility] Last Admin: 04/28/18 05:15 Dose: 100 mls/hr Levofloxacin (Levaquin Iv) 750 mg in 150 mls @ 100 mls/hr IV Q48 [facility] Last Admin: 04/28/18 05:17 Dose: 100 mls/hr Insulin Human Lispro (Humalog Kwikpen (Bkc)) 0 unit SC ACHS [facility]; Protocol Last Admin: 04/28/18 11:36 Dose: 1 units Lactobacillus Acidophilus (Acidophilus) 1 tablet PO BID [facility] Last Admin: 04/28/18 08:21 Dose: 1 tablet Levothyroxine Sodium (Synthroid) 88 mcg PO DAILY@0600 [facility] Last Admin: 04/28/18 05:18 Dose: 88 mcg Magnesium Hydroxide (Milk Of Magnesia) 30 ml PO DAILY PRN PRN PRN Reason: Constipation Melatonin (Melatonin) 3 mg PO QHS [facility] Methenamine Hippurate (Hiprex) 1 gm PO BID [facility] Last Admin: 04/28/18 10:16 Dose: 1 gm Metoprolol Tartrate (Lopressor (Beta Prema)) 25 mg PO BID [facility] Last Admin: 04/28/18 10:17 Dose: 25 mg Mirtazapine (Remeron) 7.5 mg PO QHS [facility] Morphine Sulfate () 1 - 2 mg IV Q4H PRN PRN PRN Reason: PAIN Ondansetron HCl (Zofran) 4 mg IV Q8H PRN PRN PRN Reason: NAUSEA/VOMITING Pantoprazole Sodium (Protonix) 40 mg PO DAILY [facility] Last Admin: 04/28/18 10:17 Dose: 40 mg Polysaccharide Iron Complex (Ferrex 150) 150 mg PO DAILYCM [facility] Last Admin: 04/28/18 08:21 Dose: 150 mg Sodium Chloride () 5 - 15 ml IV UD PRN PRN Reason: SALINE FLUSH Medical Necessity - Tobacco Use Smoking Status: Never smoker Tobacco Use: Non-smoker Assessment/Plan All Active Problems (Last Reviewed 02/24/17 @ 07:57 by Altagracia Menard) Elevated lactic acid level (Acute) Dyspnea, unspecified (Acute) Palpitations (Acute) Syncope and collapse (Acute) Chest pain (Acute) Fatigue (Acute) Fracture of right femur (Acute) Edema (Acute) Acute deep vein thrombosis (DVT) of left lower extremity (Acute) Hypotension (Acute) UTI (urinary tract infection) (Acute) 1. UTI stable. Has no complaints this morning. UA showed rare bacteria with no leukocyte esterase. Heart rate already been treated for UTI recently. Urine previously cultured E. coli and enterococcus Currently on IV Levaquin. Will continue until urine culture results are back. Cultures pending. 2. Mechanical fall Likely due to UTI. However patient states he has had numerous falls at home on account of general debility. PT/OT on board Is amenable to going to a rehab facility Case management on board for discharge planning. 3. Lactic acidosis: Resolved 4.JOSE: Cr is 0.9; was 1.04 on admission. Baseline creatinine is around 0.7. Continue hydration and monitor. 5. Chronic A. fib: Metoprolol, and digoxin. Patient also on Eliquis. Due to patient's recurrent falls at home, I counseled patient about risk of bleeding and she is okay with Eliquis pain is continued. Will DC Eliquis. Patient counseled that she still does have a risk of stroke since Eliquis has been discontinued and she expressed understanding. 6. Heart failure with preserved ejection fraction and nonischemic cardiomyopathy Stable. On digoxin and metoprolol. EF is 65% per echo from September 2016. 7. Hypothyroidism: on synthroid. 8. Diabetes mellitus: On insulin sliding scale. I will check [facility] chest. 9. Hypertension: Controlled. On metoprolol. Hydralazine as needed. 10. Hyperlipidemia: Not on statin on account of allergy 11. Sick sinus syndrome status post pacemaker placement 12. History of venous thromboembolism: Status post IVC filter. Reece PADGETT'nova as documented above. 13. Chronic dysphagia: Was previously on nectar thick liquids. She states she discontinued this diet. Speech therapy consult for further recs. 14. Diarrhea: Has never had a colonoscopy. C. difficile screening negative. She will need to follow-up with a heel seat fitter for colonoscopy to assess for microscopic colitis. DVT prophylaxis: SCDs Code Visit Inpatient E&M: 88411 Subs Hosp L3
--- NOTE | 2018-04-28 12:42 | PN_ITS ---
Patient Problems: Active and Suspected Problems (Last Reviewed 02/24/17 @ 07:57 by Altagracia Menard) Elevated lactic acid level (Acute) Subjective: Patient seen and examined this morning. She was admitted for UTI and mechanical fall. Still complains of feeling weak and is concerned that is not able to take care of herself at home. Of note, she has had numerous in the past. Review of systems otherwise negative. Labs and vitals reviewed. Patient is amenable to placement in a [facility]pc. Vitals/I&O's: Vital Signs Temp Pulse Resp BP Pulse Ox 99.3 F H 85 18 118/74 92 04/28/18 11:32 04/28/18 11:32 04/28/18 11:32 04/28/18 11:32 04/28/18 11:32 Oxygen Flow Rate (L/min) 2 Oxygen Delivery Method Room Air Weight: 165 lb 9.074 oz Body Mass Index (BMI) 25.2 Finger Stick Blood Glucose 276 Intake and Output for Last 24 Hours 04/26/18 04/27/18 04/28/18 23:59 23:59 23:59 Intake Total 815 / 815 Balance 815 / 815 General: Alert, Oriented x3, Cooperative, No apparent distress HEENT: Atraumatic, PERRLA, EOMI, Normocephalic Oral: Moist Mucosa Neck: Supple, No JVD, Negative Carotid Bruits Lungs: Clear to auscultation, Normal air movement, No rhonchi, No wheeze, No rales Cardiovascular: Regular rate, Regular Rhythm, Normal S1, Normal S2, No murmurs Abdomen: Bowel Sounds Present, Soft, Non Tender, Non-Distended, No Hepato- splenomegaly Extremities: No clubbing, No cyanosis, No edema, Capillary Refill Less than 3 Seconds Skin: No rashes, No breakdown Musculoskeletal: No Tenderness to Palpation of Joints or Extremities Lymphatic: No Cervical, Supraclavicular, or Inguinal Adenopathy Neurological: Cranial nerves II-XII grossly intact, Neuro grossly intact, Motor Exam 5/5 strength throughout Psych/Mental Status: Normal Affect, Appropriate, Alert and oriented to time, place, person, mood and affect Laboratory Results 04/28/18 02:00: WBC 6.7, RBC 5.08, Hgb 14.5, Hct 44.1, MCV 86.8, MCH 28.5, MCHC 32.9, RDW 14.5, RDW Differential 46.0 H, Plt Count 114 L, MPV 10.7, Immature Gran % (Auto) 0.300, Neut % (Auto) 84.6 H, Lymph % (Auto) 7.5 L, [place] % (Auto) 7.2, Eos % (Auto) 0.1, Baso % (Auto) 0.3, Absolute Neuts (auto) 5.7, Absolute Lymphs (auto) 0.50 L, Total Counted Not Reportable 04/28/18 02:00: PT 15.2 H, INR 1.2, APTT 28.3 04/28/18 02:00: Sodium 134 L, Potassium 4.6, Chloride 105, Carbon Dioxide 19.0 L , Anion Gap 10, BUN 23 H, Creatinine 1.04 H, Estim Creat Clear Calc 39.86, Est GFR (MDRD) Af Amer 65, Est GFR (MDRD) Non-Af 54 L, BUN/Creatinine Ratio 22.1 H, Glucose 201 H, Calcium 8.8, Total Bilirubin 0.40, AST 20, ALT 19, Alkaline Phosphatase 87, Total Protein 6.9, Albumin 3.5, Globulin 3.4, Albumin/Globulin Ratio 1.0 04/28/18 02:00: Lactic Acid 2.7 H 04/28/18 03:50: Urine Color Yellow, Urine Clarity Sl. Cloudy, Urine pH 5.0, Ur Specific [place] 1.020, Urine Protein 15 H, Urine Glucose (UA) Normal, Urine Ketones 50 H, Urine Occult Blood 10 H, Urine Nitrite Negative, Urine Bilirubin Negative, Urine Urobilinogen Normal, Ur Leukocyte Esterase Negative, Urine RBC 0-5 SEEN, Urine WBC 0-5 SEEN, Ur Squamous Epith Cells 0-5 SEEN, Urine Bacteria RARE, Urine Mucus 0 SEEN 04/28/18 06:28: Lactic Acid 1.1 04/28/18 06:55: WBC 5.1, RBC 4.82, Hgb 13.8, Hct 41.8, MCV 86.7, MCH 28.6, MCHC 33.0, RDW 14.6, RDW Differential 46.1 H, Plt Count 122 L, MPV 10.4, Immature Gran % (Auto) 0.000, Neut % (Auto) 84.0 H, Lymph % (Auto) 8.0 L, [place] % (Auto) 7.4, Eos % (Auto) 0.0, Baso % (Auto) 0.6, Absolute Neuts (auto) 4.3, Absolute Lymphs (auto) 0.41 L, Total Counted Not Reportable, Differential Comment COMMENT 04/28/18 06:55: Sodium 137, Potassium 4.5, Chloride 107, Carbon Dioxide 21.0, Anion Gap 9, BUN 20 H, Creatinine 0.92, Estim Creat Clear Calc 46.74, Est GFR (MDRD) Af Amer 75, Est GFR (MDRD) Non-Af 62, BUN/Creatinine Ratio 21.8 H, Glucose 211 H, Calcium 8.4 L 04/28/18 06:59: POC Glucose 190 H 04/28/18 11:35: POC Glucose 159 H Diagnostic Data Chest X-Ray 04/28/18 01:45 IMPRESSION: Chronic changes. No acute cardiopulmonary disease identified. Electronically Signed: Adrien Shabazz, at 2:51 EDT Tel , Service support , Brain CT 04/28/18 01:46 IMPRESSION: Chronic involutional and white matter changes. No acute territorial infarct or intracranial hemorrhage. If patient's symptomology persists or there is continuing clinical concern MRI or follow-up CT scan can be performed. Electronically Signed: Adrien Shabazz, at 3:27 EDT Tel , Service support , Cervical Spine CT 04/28/18 01:46 IMPRESSION: Multilevel degenerative changes. No acute fracture or subluxation. Electronically Signed: Adrien Shabazz, at 3:32 EDT Tel , Service support , Shoulder X-Ray 04/28/18 01:46 IMPRESSION: No fracture. Degenerative changes of the acromioclavicular joint Electronically Signed: Jonathon Paige MD at 3:37 EDT Tel , Service support , Current Medications Acetaminophen (Tylenol) 650 mg PO Q6H PRN PRN PRN Reason: Non-cardiac pain (mod-severe) Hydrocodone Bitart/Acetaminophen ([place] 5mg-325mg) 1 - 2 tablet PO Q6H PRN PRN PRN Reason: Moderate-severe pain Al Hydroxide/Mg Hydroxide (Mylanta Ii) 30 ml PO Q6H PRN PRN PRN Reason: Gastric burning Ascorbic Acid (Vitamin C) 500 mg PO BID [facility] Last Admin: 04/28/18 10:17 Dose: 500 mg Calamine/Phenol (Calmoseptine Ointment) 1 applic TOPICAL TID [facility]; Protocol Digoxin (Lanoxin) 125 mcg PO DAILY [facility] Last Admin: 04/28/18 10:17 Dose: 125 mcg Diphenoxylate HCl/Atropine (Lomotil) 1 tablet PO TID PRN PRN PRN Reason: DIARRHEA Hydralazine HCl (Apresoline Iv) 10 mg IV Q4H PRN PRN PRN Reason: SBP > 160 Sodium Chloride () 1,000 mls @ 100 mls/hr IV .Q10H [facility] Last Admin: 04/28/18 05:15 Dose: 100 mls/hr Levofloxacin (Levaquin Iv) 750 mg in 150 mls @ 100 mls/hr IV Q48 [facility] Last Admin: 04/28/18 05:17 Dose: 100 mls/hr Insulin Human Lispro (Humalog Kwikpen (Bkc)) 0 unit SC ACHS [facility]; Protocol Last Admin: 04/28/18 11:36 Dose: 1 units Lactobacillus Acidophilus (Acidophilus) 1 tablet PO BID [facility] Last Admin: 04/28/18 08:21 Dose: 1 tablet Levothyroxine Sodium (Synthroid) 88 mcg PO DAILY@0600 [facility] Last Admin: 04/28/18 05:18 Dose: 88 mcg Magnesium Hydroxide (Milk Of Magnesia) 30 ml PO DAILY PRN PRN PRN Reason: Constipation Melatonin (Melatonin) 3 mg PO QHS [facility] Methenamine Hippurate (Hiprex) 1 gm PO BID [facility] Last Admin: 04/28/18 10:16 Dose: 1 gm Metoprolol Tartrate (Lopressor (Beta Prema)) 25 mg PO BID [facility] Last Admin: 04/28/18 10:17 Dose: 25 mg Mirtazapine (Remeron) 7.5 mg PO QHS [facility] Morphine Sulfate () 1 - 2 mg IV Q4H PRN PRN PRN Reason: PAIN Ondansetron HCl (Zofran) 4 mg IV Q8H PRN PRN PRN Reason: NAUSEA/VOMITING Pantoprazole Sodium (Protonix) 40 mg PO DAILY [facility] Last Admin: 04/28/18 10:17 Dose: 40 mg Polysaccharide Iron Complex (Ferrex 150) 150 mg PO DAILYCM [facility] Last Admin: 04/28/18 08:21 Dose: 150 mg Sodium Chloride () 5 - 15 ml IV UD PRN PRN Reason: SALINE FLUSH Medical Necessity - Tobacco Use Smoking Status: Never smoker Tobacco Use: Non-smoker Assessment/Plan All Active Problems (Last Reviewed 02/24/17 @ 07:57 by Altagracia Menard) Elevated lactic acid level (Acute) Dyspnea, unspecified (Acute) Palpitations (Acute) Syncope and collapse (Acute) Chest pain (Acute) Fatigue (Acute) Fracture of right femur (Acute) Edema (Acute) Acute deep vein thrombosis (DVT) of left lower extremity (Acute) Hypotension (Acute) UTI (urinary tract infection) (Acute) 1. UTI * stable. Has no complaints this morning. * UA showed rare bacteria with no leukocyte esterase. Heart rate already been treated for UTI recently. * Urine previously cultured E. coli and enterococcus * Currently on IV Levaquin. Will continue until urine culture results are back. * Cultures pending. 2. Mechanical fall * Likely due to UTI. However patient states he has had numerous falls at home on account of general debility. * PT/OT on board * Is amenable to going to a rehab facility * Case management on board for discharge planning. * 3. Lactic acidosis: Resolved 4.JOSE: Cr is 0.9; was 1.04 on admission. Baseline creatinine is around 0.7. Continue hydration and monitor. 5. Chronic A. fib: * Metoprolol, and digoxin. Patient also on Eliquis. * Due to patient's recurrent falls at home, I counseled patient about risk of bleeding and she is okay with Eliquis pain is continued. * Will DC Eliquis. * Patient counseled that she still does have a risk of stroke since Eliquis has been discontinued and she expressed understanding. * 6. Heart failure with preserved ejection fraction and nonischemic cardiomy opathy * Stable. On digoxin and metoprolol. EF is 65% per echo from September 2016. * * 7. Hypothyroidism: on synthroid. * 8. Diabetes mellitus: On insulin sliding scale. I will check [facility] chest. 9. Hypertension: Controlled. On metoprolol. Hydralazine as needed. 10. Hyperlipidemia: Not on statin on account of allergy 11. Sick sinus syndrome status post pacemaker placement 12. History of venous thromboembolism: Status post IVC filter. Eliquis DC'd as documented above. 13. Chronic dysphagia: Was previously on nectar thick liquids. She states she discontinued this diet. Speech therapy consult for further recs. 14. Diarrhea: Has never had a colonoscopy. C. difficile screening negative. She will need to follow-up with a manager video games for colonoscopy to assess for microscopic colitis. DVT prophylaxis: SCDs Code Visit Inpatient E&M: 00548 Subs Hosp L3
[2018-04-28 16:30] LABS: Bedside Glucose 192 mg/dL (70-110)
[2018-04-28] MEDS: Diphenoxylate/Atrop 1 Tablet PO (18:35)
[2018-04-28] MEDS: MELATONIN 3 MG TABLET PO (21:12)
[2018-04-28] MEDS: Mirtazapine 15 MG Tablet 7.5 MG PO (21:14)
[2018-04-28 21:25] LABS: Bedside Glucose 159 mg/dL (70-110)
[2018-04-28] MEDS: Acetaminophen 325 MG Tablet 650 MG PO (23:43)
[2018-04-29] VITALS (7 sets, daily range): BP systolic 116–141; BP diastolic 70–94; PULSE 75–88; RESP 16–18; TEMP 36.4–37.2; O2SAT 92–94
[2018-04-29] MEDS: 0.9% Normal Saline 1,000 ML 100 ML IV ×3 (02:00→20:27)
[2018-04-29] MEDS: Menthol/Lanolin/Calamine/Znox 113 GM Tube 1 APPLIC TOPICAL ×3 (05:43→22:18)
[2018-04-29] MEDS: Levothyroxine 88 MCG Tablet PO (05:44)
[2018-04-29 06:31] LABS: Bedside Glucose 110 mg/dL (70-110)
[2018-04-29 07:14] LABS: Absolute Lymphocyte Count 0.74 X10^3/ul (0.83-4.51); Absolute Neutrophil Count 2.9 X10^3/uL (2.0-7.7); Basophil# 0.02 X10^3/uL; Basophil% 0.5 % (0-1); Eosinophil# 0.01 X10^3/uL; Eosinophils% 0.3 % (0-5); Hematocrit 40.3 % (37-47); Hemoglobin 13.1 g/dl (12.0-15.0); Lymphocyte # 0.74 X10^3/ul (4.0); Lymphocyte % 19.2 % (19-41); Mean Corp Hgb Conc 32.5 g/gl (32-36); Mean Corpuscular Hgb 28.1 pg (27.0-32.0); Mean Corpuscular Volume 86.5 fL (81-99); Mean Platelet Vol. 10.3 fl (6.2-12.0); Monocyte# 0.14 X10^3/uL; Monocyte% 3.6 % (0-10); Neutrophil # 2.94 X10^3/uL (2.7-7.7); Neutrophil % 76.1 % (47-70); Platelet Count 103 K/mm3 (150-450); RBC Distribution Width CV 14.8 % (11.6-14.6); Red Blood Count 4.66 M/mm3 (4.2-5.4); White Blood Count 3.9 K/mm3 (4.4-11.0)
[2018-04-29 07:16] LABS: POSITIVE COUNT NO; POSITIVE DIFFERENTIAL NO; POSITIVE MORPHOLOGY NO
[2018-04-29 07:48] LABS: Anion Gap 8 (5-15); BUN 17 mg/dL (7-18); BUN/Creat Ratio 21.5 RATIO (10-20); Calcium,Total 8.4 mg/dL (8.5-10.1); Chloride 113 mmol/L (98-107); Creatinine, Serum 0.79 mg/dL (0.55-1.02); EST Glomerular Filtration Rate 74 mL/min (>60); Est Glom Filt Rate - Afr Amer 89 mL/min (>60); Glucose 109 mg/dL (74-106); Potassium 3.7 mmol/L (3.5-5.1); Sodium Level 139 mmol/L (136-145)
--- NOTE | 2018-04-29 09:37 | CASEMGMT ---
SW spoke w/Ginny in TCU this morning, she did start precert with [facility] for TCU today. JANEEN Gonzalez, ELECTRONIC SCALE TESTER
--- NOTE | 2018-04-29 09:54 | PCM.PN.HOSP ---
Patient Problems: Active and Suspected Problems (Last Reviewed 02/24/17 @ 07:57 by Altagracia Menard) Elevated lactic acid level (Acute) Subjective: Patient seen and examined. Still feels weak. She denies any fever or chills, palpitations or dizziness, abdominal pain, diarrhea vomiting. Review of systems otherwise negative. He is awaiting placement in a residential. Vitals/I&O's: Vital Signs Temp Pulse Resp BP Pulse Ox 99 F 75 16 116/94 H 92 04/29/18 02:23 04/29/18 02:23 04/29/18 02:23 04/29/18 02:23 04/29/18 02:23 Oxygen Flow Rate (L/min) 1 Oxygen Delivery Method Room Air Weight: 165 lb 9.074 oz Body Mass Index (BMI) 25.2 Finger Stick Blood Glucose 276 Intake and Output for Last 24 Hours 04/27/18 04/28/18 04/29/18 23:59 23:59 23:59 Intake Total 2151 / 2151 635 / 635 Balance 2151 635 / 635 General: Alert, Oriented x3, Cooperative, No apparent distress HEENT: Atraumatic, PERRLA, EOMI, Normocephalic Oral: Moist Mucosa Neck: Supple, No JVD, Negative Carotid Bruits Lungs: Clear to auscultation, Normal air movement, No rhonchi, No wheeze, No rales Cardiovascular: Regular rate, Regular Rhythm, Normal S1, Normal S2, No murmurs Abdomen: Bowel Sounds Present, Soft, Non Tender, Non-Distended, No Hepato-splenomegaly Extremities: No clubbing, No cyanosis, No edema, Capillary Refill Less than 3 Seconds Skin: No rashes, No breakdown Musculoskeletal: No Tenderness to Palpation of Joints or Extremities Lymphatic: No Cervical, Supraclavicular, or Inguinal Adenopathy Neurological: Cranial nerves II-XII grossly intact, Neuro grossly intact, Motor Exam 5/5 strength throughout Psych/Mental Status: Normal Affect, Appropriate, Alert and oriented to time, place, person, mood and affect Microbiology Past 72 Hours 04/28/18 20:40 Stool C. difficile DNA Amplification - Final Laboratory Results 04/28/18 11:35: POC Glucose 159 H 04/28/18 16:22: POC Glucose 192 H 04/28/18 21:17: POC Glucose 159 H 04/29/18 06:27: POC Glucose 110 04/29/18 06:44: WBC 3.9 L, RBC 4.66, Hgb 13.1, Hct 40.3, MCV 86.5, MCH 28.1, MCHC 32.5, RDW 14.8 H, RDW Differential 47.0 H, Plt Count 103 L, MPV 10.3, Immature Gran % (Auto) 0.300, Neut % (Auto) 76.1 H, Lymph % (Auto) 19.2, [place] % (Auto) 3.6, Eos % (Auto) 0.3, Baso % (Auto) 0.5, Absolute Neuts (auto) 2.9, Absolute Lymphs (auto) 0.74 L, Total Counted Not Reportable 04/29/18 06:44: Sodium 139, Potassium 3.7, Chloride 113 H, Carbon Dioxide 18.0 L, Anion Gap 8, BUN 17, Creatinine 0.79, Estim Creat Clear Calc 43.00, Est GFR (MDRD) Af Amer 89, Est GFR (MDRD) Non-Af 74, BUN/Creatinine Ratio 21.5 H, Glucose 109 H, Calcium 8.4 L Current Medications Acetaminophen (Tylenol) 650 mg PO Q6H PRN PRN PRN Reason: Non-cardiac pain (mod-severe) Last Admin: 04/28/18 23:43 Dose: 650 mg Hydrocodone Bitart/Acetaminophen ([place] 5mg-325mg) 1 - 2 tablet PO Q6H PRN PRN PRN Reason: Moderate-severe pain Al Hydroxide/Mg Hydroxide (Mylanta Ii) 30 ml PO Q6H PRN PRN PRN Reason: Gastric burning Ascorbic Acid (Vitamin C) 500 mg PO BID [facility] Last Admin: 04/28/18 21:19 Dose: 500 mg Calamine/Phenol (Calmoseptine Ointment) 1 applic TOPICAL TID [facility]; Protocol Last Admin: 04/29/18 05:43 Dose: 1 applicatio Digoxin (Lanoxin) 125 mcg PO DAILY [facility] Last Admin: 04/28/18 10:17 Dose: 125 mcg Diphenoxylate HCl/Atropine (Lomotil) 1 tablet PO TID PRN PRN PRN Reason: DIARRHEA Last Admin: 04/28/18 18:35 Dose: 1 tablet Hydralazine HCl (Apresoline Iv) 10 mg IV Q4H PRN PRN PRN Reason: SBP > 160 Sodium Chloride () 1,000 mls @ 100 mls/hr IV .Q10H [facility] Last Admin: 04/29/18 02:00 Dose: 100 mls/hr Levofloxacin (Levaquin Iv) 750 mg in 150 mls @ 100 mls/hr IV Q48 [facility] Last Admin: 04/28/18 05:17 Dose: 100 mls/hr Insulin Human Lispro (Humalog Kwikpen (Bkc)) 0 unit SC ACHS [facility]; Protocol Last Admin: 04/29/18 06:32 Dose: Not Given Lactobacillus Acidophilus (Acidophilus) 1 tablet PO BID [facility] Last Admin: 04/28/18 21:12 Dose: 1 tablet Levothyroxine Sodium (Synthroid) 88 mcg PO DAILY@0600 [facility] Last Admin: 04/29/18 05:44 Dose: 88 mcg Magnesium Hydroxide (Milk Of Magnesia) 30 ml PO DAILY PRN PRN PRN Reason: Constipation Melatonin (Melatonin) 3 mg PO QHS [facility] Last Admin: 04/28/18 21:12 Dose: 3 mg Methenamine Hippurate (Hiprex) 1 gm PO BID [facility] Last Admin: 04/28/18 21:13 Dose: 1 gm Metoprolol Tartrate (Lopressor (Beta Prema)) 25 mg PO BID [facility] Last Admin: 04/28/18 21:13 Dose: 25 mg Mirtazapine (Remeron) 7.5 mg PO QHS [facility] Last Admin: 04/28/18 21:14 Dose: 7.5 mg Morphine Sulfate () 1 - 2 mg IV Q4H PRN PRN PRN Reason: PAIN Ondansetron HCl (Zofran) 4 mg IV Q8H PRN PRN PRN Reason: NAUSEA/VOMITING Pantoprazole Sodium (Protonix) 40 mg PO DAILY [facility] Last Admin: 04/28/18 10:17 Dose: 40 mg Polysaccharide Iron Complex (Ferrex 150) [facility] Last Admin: 04/28/18 08:21 Dose: 150 mg Sodium Chloride () 5 - 15 ml IV UD PRN PRN Reason: SALINE FLUSH Medical Necessity - Tobacco Use Smoking Status: Never smoker Tobacco Use: Non-smoker Assessment/Plan All Active Problems (Last Reviewed 02/24/17 @ 07:57 by Altagracia Menard) Elevated lactic acid level (Acute) Dyspnea, unspecified (Acute) Palpitations (Acute) Syncope and collapse (Acute) Chest pain (Acute) Fatigue (Acute) Fracture of right femur (Acute) Edema (Acute) Acute deep vein thrombosis (DVT) of left lower extremity (Acute) Hypotension (Acute) UTI (urinary tract infection) (Acute) 1. UTI still feels lethargic on IV levaquin blood and urine cultures pending. urine cultures previously treated E. coli and enterococcus 2. Mechanical fall Likely due to UTI and debility. PT/OT on board awaiting placement. 3. Lactic acidosis: Resolved 4.JOSE: resolved. 5. Chronic A. fib: Metoprolol, and digoxin. Eliquis dc'd o/a of recurrent falls 6. Heart failure with preserved ejection fraction and nonischemic cardiomyopathy Stable. On digoxin and metoprolol. EF is 65% per echo from September 2016. 7. Hypothyroidism: on synthroid. 8. Diabetes mellitus: On insulin sliding scale. 9. Hypertension: Controlled. On metoprolol. Hydralazine as needed. 10. Hyperlipidemia: Not on statin on account of allergy 11. Sick sinus syndrome status post pacemaker placement: stable 12. History of venous thromboembolism: Status post IVC filter. Eliquis DC'd as documented above. 13. Chronic dysphagia: speech therapy on board. Recommend mechanical soft textures and thin liquids. Was previously on nectar thick liquids. She states she discontinued this diet. Speech therapy consult for further recs. 14. Diarrhea: Has never had a colonoscopy. C. difficile screening negative. Refer to colonoscopy upon discharge. DVT prophylaxis: SCDs Disposition: awaiting placement Code Visit Inpatient E&M: [id number] [facility] Hosp L3
--- NOTE | 2018-04-29 09:58 | PN_ITS ---
Patient Problems: Active and Suspected Problems (Last Reviewed 02/24/17 @ 07:57 by Altagracia Menard) Elevated lactic acid level (Acute) Subjective: Patient seen and examined. Still feels weak. She denies any fever or chills, palpitations or dizziness, abdominal pain, diarrhea vomiting. Review of systems otherwise negative. He is awaiting [facility] in a prison. Vitals/I&O's: Vital Signs Temp Pulse Resp BP Pulse Ox 99 F 75 16 116/94 H 92 04/29/18 02:23 04/29/18 02:23 04/29/18 02:23 04/29/18 02:23 04/29/18 02:23 Oxygen Flow Rate (L/min) 1 Oxygen Delivery Method Room Air Weight: 165 lb 9.074 oz Body Mass Index (BMI) 25.2 Finger Stick Blood Glucose 276 Intake and Output for Last 24 Hours 04/27/18 04/28/18 04/29/18 23:59 23:59 23:59 Intake Total 2151 / 2151 635 / 635 Balance 2151 635 / 635 General: Alert, Oriented x3, Cooperative, No apparent distress HEENT: Atraumatic, PERRLA, EOMI, Normocephalic Oral: Moist Mucosa Neck: Supple, No JVD, Negative Carotid Bruits Lungs: Clear to auscultation, Normal air movement, No rhonchi, No wheeze, No rales Cardiovascular: Regular rate, Regular Rhythm, Normal S1, Normal S2, No murmurs Abdomen: Bowel Sounds Present, Soft, Non Tender, Non-Distended, No Hepato-splenomegaly Extremities: No clubbing, No cyanosis, No edema, Capillary Refill Less than 3 Seconds Skin: No rashes, No breakdown Musculoskeletal: No Tenderness to Palpation of Joints or Extremities Lymphatic: No Cervical, Supraclavicular, or Inguinal Adenopathy Neurological: Cranial nerves II-XII grossly intact, Neuro grossly intact, Motor Exam 5/5 strength throughout Psych/Mental Status: Normal Affect, Appropriate, Alert and oriented to time, place, person, mood and affect Microbiology Past 72 Hours 04/28/18 20:40 Stool C. difficile DNA Amplification - Final Laboratory Results 04/28/18 11:35: POC Glucose 159 H 04/28/18 16:22: POC Glucose 192 H 04/28/18 21:17: POC Glucose 159 H 04/29/18 06:27: POC Glucose 110 04/29/18 06:44: WBC 3.9 L, RBC 4.66, Hgb 13.1, Hct 40.3, MCV 86.5, MCH 28.1, MCHC 32.5, RDW 14.8 H, RDW Differential 47.0 H, Plt Count 103 L, MPV 10.3, Immature Gran % (Auto) 0.300, Neut % (Auto) 76.1 H, Lymph % (Auto) 19.2, [place] % (Auto) 3.6, Eos % (Auto) 0.3, Baso % (Auto) 0.5, Absolute Neuts (auto) 2.9, Absolute Lymphs (auto) 0.74 L, Total Counted Not Reportable 04/29/18 06:44: Sodium 139, Potassium 3.7, Chloride 113 H, Carbon Dioxide 18.0 L , Anion Gap 8, BUN 17, Creatinine 0.79, Estim Creat Clear Calc 43.00, Est GFR (MDRD) Af Amer 89, Est GFR (MDRD) Non-Af 74, BUN/Creatinine Ratio 21.5 H, Glucose 109 H, Calcium 8.4 L Current Medications Acetaminophen (Tylenol) 650 mg PO Q6H PRN PRN PRN Reason: Non-cardiac pain (mod-severe) Last Admin: 04/28/18 23:43 Dose: 650 mg Hydrocodone Bitart/Acetaminophen ([place] 5mg-325mg) 1 - 2 tablet PO Q6H PRN PRN PRN Reason: Moderate-severe pain Al Hydroxide/Mg Hydroxide (Mylanta Ii) 30 ml PO Q6H PRN PRN PRN Reason: Gastric burning Ascorbic Acid (Vitamin C) 500 mg PO BID [facility] Last Admin: 04/28/18 21:19 Dose: 500 mg Calamine/Phenol (Calmoseptine Ointment) 1 applic TOPICAL TID [facility]; Protocol Last Admin: 04/29/18 05:43 Dose: 1 applicatio Digoxin (Lanoxin) 125 mcg PO DAILY [facility] Last Admin: 04/28/18 10:17 Dose: 125 mcg Diphenoxylate HCl/Atropine (Lomotil) 1 tablet PO TID PRN PRN PRN Reason: DIARRHEA Last Admin: 04/28/18 18:35 Dose: 1 tablet Hydralazine HCl (Apresoline Iv) 10 mg IV Q4H PRN PRN PRN Reason: SBP > 160 Sodium Chloride () 1,000 mls @ 100 mls/hr IV .Q10H [facility] Last Admin: 04/29/18 02:00 Dose: 100 mls/hr Levofloxacin (Levaquin Iv) 750 mg in 150 mls @ 100 mls/hr IV Q48 [facility] Last Admin: 04/28/18 05:17 Dose: 100 mls/hr Insulin Human Lispro (Humalog Kwikpen (Bkc)) 0 unit SC ACHS [facility]; Protocol Last Admin: 04/29/18 06:32 Dose: Not Given Lactobacillus Acidophilus (Acidophilus) 1 tablet PO BID [facility] Last Admin: 04/28/18 21:12 Dose: 1 tablet Levothyroxine Sodium (Synthroid) 88 mcg PO DAILY@0600 [facility] Last Admin: 04/29/18 05:44 Dose: 88 mcg Magnesium Hydroxide (Milk Of Magnesia) 30 ml PO DAILY PRN PRN PRN Reason: Constipation Melatonin (Melatonin) 3 mg PO QHS [facility] Last Admin: 04/28/18 21:12 Dose: 3 mg Methenamine Hippurate (Hiprex) 1 gm PO BID [facility] Last Admin: 04/28/18 21:13 Dose: 1 gm Metoprolol Tartrate (Lopressor (Beta Prema)) 25 mg PO BID [facility] Last Admin: 04/28/18 21:13 Dose: 25 mg Mirtazapine (Remeron) 7.5 mg PO QHS [facility] Last Admin: 04/28/18 21:14 Dose: 7.5 mg Morphine Sulfate () 1 - 2 mg IV Q4H PRN PRN PRN Reason: PAIN Ondansetron HCl (Zofran) 4 mg IV Q8H PRN PRN PRN Reason: NAUSEA/VOMITING Pantoprazole Sodium (Protonix) 40 mg PO DAILY [facility] Last Admin: 04/28/18 10:17 Dose: 40 mg Polysaccharide [facility] ([facility]rex 150) [facility] Last Admin: 04/28/18 08:21 Dose: 150 mg Sodium Chloride () 5 - 15 ml IV UD PRN PRN Reason: SALINE FLUSH Medical Necessity - Tobacco Use Smoking Status: Never smoker Tobacco Use: Non-smoker Assessment/Plan All Active Problems (Last Reviewed 02/24/17 @ 07:57 by Altagracia Menard) Elevated lactic acid level (Acute) Dyspnea, unspecified (Acute) Palpitations (Acute) Syncope and collapse (Acute) Chest pain (Acute) Fatigue (Acute) Fracture of right femur (Acute) Edema (Acute) Acute deep vein thrombosis (DVT) of left lower extremity (Acute) Hypotension (Acute) UTI (urinary tract infection) (Acute) 1. UTI * still feels lethargic * on IV levaquin * blood and urine cultures pending. * urine cultures previously treated E. coli and enterococcus * 2. Mechanical fall * Likely due to UTI and debility. * PT/OT on board * awaiting placement. * 3. Lactic acidosis: Resolved 4.JOSE: resolved. 5. Chronic A. fib: * Metoprolol, and digoxin. Gadielis dc'd o/a of recurrent falls * 6. Heart failure with preserved ejection fraction and nonischemic cardiomyop athy * Stable. On digoxin and metoprolol. EF is 65% per echo from September 2016. * * 7. Hypothyroidism: on synthroid. 8. Diabetes mellitus: On insulin sliding scale. 9. Hypertension: Controlled. On metoprolol. Hydralazine as needed. 10. Hyperlipidemia: Not on statin on account of allergy 11. Sick sinus syndrome status post pacemaker placement: stable 12. History of venous thromboembolism: Status post IVC filter. Gadielis DC'd as documented above. 13. Chronic dysphagia: speech therapy on board. Recommend mechanical soft textures and thin liquids. Was previously on nectar thick liquids. She states she discontinued this diet. Speech therapy consult for further recs. 14. Diarrhea: Has never had a colonoscopy. C. difficile screening negative. Refer to colonoscopy upon discharge. DVT prophylaxis: SCDs Disposition: awaiting placement Code Visit Inpatient E&M: [id number] [facility] Hosp L3
[2018-04-29] MEDS: Ascorbic Acid 500 MG Tablet PO ×2 (10:12→22:22)
[2018-04-29] MEDS: Pantoprazole Sodium 40 MG Tablet PO (10:12)
[2018-04-29] MEDS: Febuxostat 40 MG TABLET 80 MG PO (10:12)
[2018-04-29] MEDS: METHENAMINE HIPPURATE 1 GM TABLET PO ×2 (10:12→23:09)
[2018-04-29] MEDS: Metoprolol Tartrate 25 MG Tablet PO ×2 (10:12→22:19)
[2018-04-29] MEDS: Iron Polysaccharide Complex 150 MG CAPSULE PO (10:12)
[2018-04-29] MEDS: Digoxin 125 MCG Tablet PO (10:12)
[2018-04-29 10:56] LABS: Bedside Glucose 162 mg/dL (70-110)
[2018-04-29] MEDS: Glucerna Shake 120 ML LIQUID PO ×2 (11:17→22:17)
[2018-04-29] MEDS: Insulin Lispro 100 UNIT/ML INSULN.PEN SC (11:17)
[2018-04-29] MEDS: 0.9% NaCl Peripheral Flush Adult/Peds IV (11:30)
[2018-04-29] MEDS: Ondansetron 4 MG/2 ML Vial IV (11:30)
--- NOTE | 2018-04-29 11:53 | CASEMGMT ---
Addendum entered by Nay Anderson 04/29/18 13:16: Pt is approved to go to TCU by her insurance. SW let pt know this, pt agreeable. SW will continue to follow for discharge to TCU when pt is ready. JANEEN Gonzalez, BAD CREDIT COLLECTOR Original Note: As per physician, pt is not yet ready for discharge. SW let Ginny in TCU know. SW spoke w/pt in the room, let her know that the precert was started with her insurance for her to go to TCU, and hopefully we will get the precert and get her there tomorrow if physician feels she is ready. Pt states understanding. SW offered to call pt's sons, she states will speak w/them later. Pt reports to still not be feeling well today, SW offered support to pt. SW will continue to follow. JANEEN Gonzalez, B[employer] CREDIT COLLECTOR
--- NOTE | 2018-04-29 15:05 | NURSING ---
Son here, questioning why the patient received insulin for sugar of 162 at lunch. I explained our insulin protocol sliding scale and also the appropriate BG ranges. The son verbalizes understanding but states that is other people's normal, not hers. The son states the pt's MD does not want her sugar to be below 150. The son is requesting insulin not be given for BG under 200.
[2018-04-29 16:46] LABS: Bedside Glucose 152 mg/dL (70-110)
[2018-04-29 22:16] LABS: Bedside Glucose 124 mg/dL (70-110)
[2018-04-29] MEDS: Cholestyramine/Sucrose 4 GM/PACKET PO (22:17)
[2018-04-29] MEDS: MELATONIN 3 MG TABLET PO (22:18)
[2018-04-29] MEDS: Mirtazapine 15 MG Tablet 7.5 MG PO (22:19)
[2018-04-30 01:44] VITALS: BP 129/77; PULSE 82; RESP 18; TEMP 36.7; O2SAT 92
[2018-04-30] MEDS: Menthol/Lanolin/Calamine/Znox 113 GM Tube 1 APPLIC TOPICAL ×2 (05:49→09:03)
[2018-04-30] MEDS: Levothyroxine 88 MCG Tablet PO (05:49)
[2018-04-30 06:21] LABS: Absolute Lymphocyte Count 0.96 X10^3/ul (0.83-4.51); Absolute Neutrophil Count 3.9 X10^3/uL (2.0-7.7); Basophil# 0.01 X10^3/uL; Basophil% 0.2 % (0-1); Eosinophil# 0.05 X10^3/uL; Eosinophils% 0.9 % (0-5); Hematocrit 41.6 % (37-47); Hemoglobin 13.7 g/dl (12.0-15.0); Lymphocyte # 0.96 X10^3/ul (4.0); Lymphocyte % 17.6 % (19-41); Mean Corp Hgb Conc 32.9 g/gl (32-36); Mean Corpuscular Hgb 28.7 pg (27.0-32.0); Mean Platelet Vol. 10.2 fl (6.2-12.0); Monocyte# 0.57 X10^3/uL; Monocyte% 10.4 % (0-10); Neutrophil # 3.87 X10^3/uL (2.7-7.7); Neutrophil % 70.7 % (47-70); Platelet Count 113 K/mm3 (150-450); RBC Distribution Width CV 14.7 % (11.6-14.6); RBC Distribution Width SD 46.4 fl (35.1-43.9); Red Blood Count 4.78 M/mm3 (4.2-5.4); White Blood Count 5.5 K/mm3 (4.4-11.0)
[2018-04-30 06:22] LABS: POSITIVE COUNT NO; POSITIVE DIFFERENTIAL NO; POSITIVE MORPHOLOGY NO
[2018-04-30 06:24] LABS: Anion Gap 9 (5-15); BUN 14 mg/dL (7-18); BUN/Creat Ratio 19.9 RATIO (10-20); Calcium,Total 8.5 mg/dL (8.5-10.1); Chloride 113 mmol/L (98-107); EST Glomerular Filtration Rate 85 mL/min (>60); Est Glom Filt Rate - Afr Amer 102 mL/min (>60); Glucose 157 mg/dL (74-106); Potassium 3.8 mmol/L (3.5-5.1); Sodium Level 141 mmol/L (136-145)
[2018-04-30 06:41] LABS: Bedside Glucose 154 mg/dL (70-110)
[2018-04-30] MEDS: Furosemide 40 MG/4 ML Vial IV (07:02)
[2018-04-30 08:56] VITALS: BP 129/73; PULSE 88; RESP 18; TEMP 37; O2SAT 94
[2018-04-30] MEDS: Cholestyramine/Sucrose 4 GM/PACKET PO (09:02)
[2018-04-30 09:03] VITALS: PULSE 88
[2018-04-30] MEDS: Febuxostat 40 MG TABLET 80 MG PO (09:03)
[2018-04-30] MEDS: Metoprolol Tartrate 25 MG Tablet PO (09:03)
[2018-04-30] MEDS: levoFLOXacin IV 750 MG/150 ML BAG 100 MG IV (09:03)
[2018-04-30] MEDS: Pantoprazole Sodium 40 MG Tablet PO (09:03)
[2018-04-30] MEDS: Digoxin 125 MCG Tablet PO (09:03)
[2018-04-30] MEDS: Iron Polysaccharide Complex 150 MG CAPSULE PO (09:03)
[2018-04-30] MEDS: Ascorbic Acid 500 MG Tablet PO (09:03)
[2018-04-30] MEDS: 0.9% NaCl Peripheral Flush Adult/Peds IV (09:04)
--- NOTE | 2018-04-30 09:20 | RAD_ITS ---
STUDY: X-RAY CHEST REASON FOR EXAM: Female, 83 years old. Shortness of breath/dyspnea. TECHNIQUE: Single AP portable view of the chest. COMPARISON: Comparison is made with prior study of April 28, 2018. FINDINGS: Since prior study, there has been progressive gastric congestion and mild CHF. There is no demonstrated pleural abnormality. A left-sided dual-chamber pacemaker is seen. Normal mediastinum and becky. Normal visualized pulmonary arteries. There is atherosclerotic calcification of the aortic arch with tortuosity. There are diffuse degenerative changes of the visualized thoracic spine. Increased kyphosis. There is degenerative osteoarthritis of the bilateral shoulders. There is no demonstrated abnormality of the visualized soft tissue structures of the upper abdomen. RAD/Chest 1 View (Portable) IMPRESSION: Since prior study, there has been progressive vascular congestion and CHF. Electronically Signed: Sinan Coker, at 13:23 EDT , Service support ,
[2018-04-30] MEDS: Insulin Lispro 100 UNIT/ML INSULN.PEN SC (11:36)
--- NOTE | 2018-04-30 11:38 | PCM.TXEXTCAR ---
- Diet 04/28/18 04:43 ADA [Diet: Calorie Controlled] Food consistency:: Mechanical Soft/Ground Liquid Consistency:: Regular/Thin Dietary Modifications:: Mechanical Soft Diet Diet Comments: Distaint supervision; chin tuck; seated at 90 degrees How many daily calories?: 1800 calorie - Routine Orders/Code Status Enema Type: Fleetz Enema Frequency: Daily PRN Suppository Type: Dulcolax 10mg Suppository Frequency: Daily PRN O2 Frequency: PRN Keep PO Greater than or Equal to (%): 90 [facility] Wound(s) coccyx Wound Type: Skin Tear - Therapies Weight Bearing: Weight bearing as tolerated Physical Therapy: Eval and Treat Occupational Therapy: Eval and Treat - Allergies/Procedures Done in Hospital Allergies/Adverse Reactions: Allergies amoxicillin [From Augmentin] Allergy (Verified 02/15/18 14:02) Other clavulanic acid [From Augmentin] Allergy (Verified 02/15/18 14:02) Other exenatide [From [place]] Allergy (Verified 02/15/18 14:02) Other Penicillins [PCN] Allergy (Verified 02/15/18 14:02) Other simvastatin [From Zocor] Adverse Reaction (Severe, Verified 02/15/18 14:02) Myalgias prednisone Adverse Reaction (Unknown, Verified 02/15/18 14:02) Unknown metformin Adverse Reaction (Verified 02/15/18 14:02) Rash crestor Adverse Reaction (Intermediate, Uncoded 02/15/18 14:02) myalgia Procedures: None - Type of Care/Length of Stay Estimated LOS: Convalescent Care Less Than 30 days Type of Care Needed: Skilled Rehab Potential: Fair Prognosis: Fair - Additional Orders/Day of Discharge Day of Discharge: 04/30/18 - Dietary and Speech Recommendations Dietitian Recommendations/Changes: Added Glucerna shake 120 ml w/ medpass. - Follow Up Care Primary Care Physician: Saroj Fajardo DO [Primary Care Provider] - Please follow up with your Primary Care Physician in: one week
--- NOTE | 2018-04-30 11:39 | DS.PCM_ITS ---
Discharge Date and Diagnosis Date of Admission: 04/28/18 Date of Discharge: 04/30/18 - Primary Discharge Diagnosis Active and Suspected Problems (Last Reviewed 02/24/17 @ 07:57 by Altagracia Menard) Elevated lactic acid level (Acute) mechanical fall UTI - Secondary Discharge Diagnosis Chronic Problems (Last Reviewed 02/24/17 @ 07:57 by Altagracia Menard) CKD (chronic kidney disease) stage 3, GFR 30-59 ml/min (Chronic) Sick sinus syndrome (Chronic) Atrial fibrillation (Chronic) Cardiomyopathy, nonischemic (Chronic) HLD (hyperlipidemia) (Chronic) HTN (hypertension) (Chronic) Hypothyroidism (Chronic) Hypokalemia (Chronic) Chronic diastolic (congestive) heart failure (Chronic) Iron deficiency anemia (Chronic) GERD (gastroesophageal reflux disease) (Chronic) Cardiac pacemaker in situ (Chronic) DM2 (diabetes mellitus, type 2) (Chronic) CHF (congestive heart failure) (Chronic) Pulmonary hypertension (Chronic) Hospital Course and Treatment Imaging Results: 04/30/18 09:20 CXR [Chest 1 View (Portable)] [RAD] Urgent Operations: None, - Procedures: None Summary of Care Provided: The patient is a 83 year old F with an extensive past medical history as listed. She was admitted through the ED on 04/28/2018 with a complaint of a recent fall at home as she was reaching for her walker. She also had worsening weakness which was due to a recent UTI that she had gotten. She fell on her right side and hit her head on a garbage can. She did not have any loss of consciousness. She therefore came into the ED where a CAT scan of the head done was negative and CT of the cervical spine was negative for any fracture. She was admitted and managed for general debility due to mechanical fall and UTI. Urine had cultured E. coli and into call call for [facility] on 04/21/2018 for which she had been treated. However she continued to have dysuria and nausea as well as poor oral intake. She was therefore also managed for acute complicated UTI likely having failed outpatient therapy. Urine culture was obtained and she was started on IV Levaquin. Blood cultures were also obtained. She was on fall precautions on account of mechanical fall. Patient remained stable and urine cultures were negative during this admission. Physical therapy evaluated patient and deemed her fit for further therapy. She remained stable and was discharged to the transitional care unit on 04/30/2018. She was given a prescription for p.o. of Levaquin 750 mg every 48 hours for 3 days. She is follow-up with her primary care doctor in 1 week. Note, due to chronic dysphagia she was seen by speech therapy during admission who Recommended mechanical soft textures and thin liquids. Seen and examined prior to discharge. She had no complaints and felt well. Review of systems otherwise negative. Labs and vitals reviewed. Home medications reviewed and reconciled. o/e: Vital Signs Height 5 ft 8 in Weight: 165 lb 9.074 oz Weight in Pounds 165.6 lbs Pulse Ox 100 Temperature 97.6 F Pulse Rate 77 Respiratory Rate 14 Blood Pressure 116/66 Blood Pressure Position Sitting General: Alert, Oriented x3, Cooperative, No apparent distress HEENT: Atraumatic, PERRLA, EOMI, Normocephalic Oral: Moist Mucosa Neck: Supple, No JVD, Negative Carotid Bruits Lungs: Clear to auscultation, Normal air movement, No rhonchi, No wheeze, No rales Cardiovascular: Regular rate, Regular Rhythm, Normal S1, Normal S2, No murmurs Abdomen: Bowel Sounds Present, Soft, Non Tender, Non-Distended, No Hepato- splenomegaly Extremities: No clubbing, No cyanosis, No edema, Capillary Refill Less than 3 Seconds Skin: No rashes, No breakdown Musculoskeletal: No Tenderness to Palpation of Joints or Extremities Lymphatic: No Cervical, Supraclavicular, or Inguinal Adenopathy Neurological: Cranial nerves II-XII grossly intact, Neuro grossly intact, Motor Exam 5/5 strength throughout Psych/Mental Status: Normal Affect, Appropriate, Alert and oriented to time, place, person, mood and affect Plan as discussed above. [] - Physical Exam Vital Signs Temp Pulse Resp BP Pulse Ox 98.6 F 88 18 129/73 H 94 04/30/18 08:56 04/30/18 09:03 04/30/18 08:56 04/30/18 08:56 04/30/18 08:56 Oxygen Flow Rate (L/min) 3 Oxygen Delivery Method Nasal Cannula Weight: 165 lb 9.074 oz Body Mass Index (BMI) 25.2 Finger Stick Blood Glucose 276 Intake and Output for Last 24 Hours 04/28/18 04/29/18 04/30/18 23:59 23:59 23:59 Intake Total 2151 1567 / 1567 2300 / 2300 Balance 2151 1567 / 1567 2300 / 2300 Microbiology Past 72 Hours 04/28/18 03:50 Urine Culture - Preliminary Urine Catheter - Catheter Culture exhibits no growth. 04/28/18 20:40 C. difficile DNA Amplification - Final Stool Laboratory Tests Past 24 Hrs 04/30/18 04/30/18 05:50 05:50 WBC 5.5 RBC 4.78 Hgb 13.7 Hct 41.6 MCV 87.0 MCH 28.7 MCHC 32.9 RDW 14.7 H RDW Differential 46.4 H Plt Count 113 L MPV 10.2 Immature Gran % (Auto) 0.200 Neut % (Auto) 70.7 H Lymph % (Auto) 17.6 L [place] % (Auto) 10.4 H Eos % (Auto) 0.9 Baso % (Auto) 0.2 Absolute Neuts (auto) 3.9 Absolute Lymphs (auto) 0.96 Total Counted Not Reportable Sodium 141 Potassium 3.8 Chloride 113 H Carbon Dioxide 19.0 L Anion Gap 9 BUN 14 Creatinine 0.70 Estim Creat Clear Calc 43.00 Est GFR (MDRD) Af Amer 102 Est GFR (MDRD) Non-Af 85 BUN/Creatinine Ratio 19.9 Glucose 157 H Calcium 8.5 POC Glucose 04/30/18 04/29/18 04/29/18 06:37 22:13 16:30 POC Glucose 154 H 124 H 152 H Discharge Diet: Low fat/ Low Cholesterol - mechanical soft textures and thin liquids Home Medications: Medications to take at Discharge Apixaban [Eliquis] 5 mg PO BID #60 tab 01/12/17 Digoxin 125 mcg PO DAILY #30 01/13/17 Febuxostat [Uloric] 80 mg PO DAILY #30 01/13/17 Lactobacillus Acidophilus [Acidophilus] 1 ea PO BID #30 01/13/17 Levothyroxine [Synthroid] 88 mcg PO DAILY #30 01/13/17 Melatonin 3 mg PO QHS #30 01/13/17 Pantoprazole Sodium [Protonix] 40 mg PO DAILY #30 01/13/17 metoprolol tartrate 25 mg tablet 25 mg PO BID 03/24/17 Ascorbic Acid 500 mg PO BID 05/27/17 Methenamine Hippurate 1 gm PO BID 05/27/17 Mirtazapine 7.5 mg PO QHS 05/27/17 Diphenoxylate/Atrop [Lomotil] 1 tab PO TID PRN PRN #15 tab 02/15/18 Ondansetron [Zofran Odt] 4 mg PO Q8H PRN PRN #10 tab 02/15/18 Iron Polysaccharide Complex [Ferrex 150] 150 mg PO DAILYCM 04/28/18 Linagliptin [Tradjenta] 5 mg PO QHS 04/28/18 Cholestyramine/Aspartame [Cholestyramine Light Packet] 4 gm PO DAILY 04/29/18 levoFLOXacin tablet [Levaquin tablet] 750 mg PO UD #3 tab 04/30/18 Following Prescrptions Were Given to Patient: levoFLOXacin tablet [Levaquin tablet] 750 mg PO UD #3 tab Primary Care Physician: Saroj Fajardo DO [Primary Care Provider] - Please follow up with your Primary Care Physician in: one week When: follow up with GI doctor o/a of chronic diarrhea Disposition: Jail facility Minutes spent on discharge:: 45 Patient Condition:: Stable Medical Necessity - Tobacco Use Smoking Status: Never smoker Tobacco Use: Non-smoker Meaningful Use Info Meaningful Use Diagnoses (Choose all that apply): None applicable Code Visit Inpatient E&M: 98486 Disch Hosp
[2018-04-30 11:45] LABS: Bedside Glucose 256 mg/dL (70-110)
--- NOTE | 2018-04-30 12:05 | CASEMGMT ---
Pt is ready for discharge today to TCU. SW left a message for Ginny in TCU letting her know pt is coming to TCU today. SW faxed discharge instructions to TCU. SW spoke w/pt, let her know she is going to TCU today. Pt agreeable. SW asked if she would like SW to call her sons, pt declined. No further needs, pt to TCU today. JANEEN Gonzalez, PIPE AND TEST SUPERVISOR
[2018-04-30 13:37] VITALS: BP 116/66; PULSE 77; RESP 14; TEMP 36.4; O2SAT 100
== END 2018-04-30 14:45 | disposition skilled nursing facility (03) | DRG 690 ==
LOC: ED 01:52 → MS2 04:19
PROVIDERS: Admitting Provider Family Medicine; Emergency Provider Emergency Medicine; Family Provider Family Medicine; PCP Family Medicine; Referring Provider Family Medicine; Visit Provider Student in an Organized Health Care Education/Training Program
DX: N39.0 Urinary tract infection, site not specified (principal); I13.0 Hypertensive heart and chronic kidney disease with heart failure and stage 1 through stage 4 chronic kidney disease, or unspecified chronic kidney disease; I50.32 Chronic diastolic (congestive) heart failure; N17.9 Acute kidney failure, unspecified; E87.2 Acidosis; I42.8 Other cardiomyopathies; B96.20 Unspecified Escherichia coli [E. coli] as the cause of diseases classified elsewhere; I48.2 Chronic atrial fibrillation; E03.9 Hypothyroidism, unspecified; E78.5 Hyperlipidemia, unspecified; E11.22 Type 2 diabetes mellitus with diabetic chronic kidney disease; N18.3 Chronic kidney disease, stage 3 (moderate); I27.20 Pulmonary hypertension, unspecified; R53.81 Other malaise; R19.7 Diarrhea, unspecified; R13.10 Dysphagia, unspecified; E86.0 Dehydration; K21.9 Gastro-esophageal reflux disease without esophagitis; Z79.01 Long term (current) use of anticoagulants; W18.30XA Fall on same level, unspecified, initial encounter; Y92.019 Unspecified place in single-family (private) house as the place of occurrence of the external cause; Z95.0 Presence of cardiac pacemaker; Z95.828 Presence of other vascular implants and grafts; Z66 Do not resuscitate; D50.9 Iron deficiency anemia, unspecified
CPT/HCPCS: 36415; 70450; 71045; 71046; 72125; 73030; 80048; 80053; 81001; 82962; 83605; 85025; 85610; 85730; 87040; 87086; 87493; 92526; 93005; 97162; 97166; 97530; 97535; 99285; J7030; A4216; J1940; J2405

== ENCOUNTER 2018-04-30 15:02 | Inpatient (IN) | payer MEDICARE, SELFPAY ==
[2018-04-28 04:44] VITALS: BMI 25.2
[2018-04-30 15:11] VITALS: BP 115/66; PULSE 82; RESP 18; TEMP 36.3; O2SAT 96
[2018-04-30 15:15] VITALS: BMI 26.7
--- NOTE | 2018-04-30 15:18 | NURSING ---
R' ARRIVED FROM [facility] AT 1450 VIA WHEELCHAIR.
--- NOTE | 2018-04-30 15:18 | NURSING ---
Addendum entered by Karma Patricio 04/30/18 15:48: CXR ON ACUTE SIDE BEFORE COMING TO UNIT- INCREASED VASCULAR CONGESTION/CHF. DR. HARGROVE AWARE. Original Note: R' REFUSING GLUCERNA BE ORDERED ON ADMIT D/T UPSETTING HER STOMACH.
[2018-04-30 15:21] VITALS: BMI 26.7
--- NOTE | 2018-04-30 15:22 | PCM.HP.STD ---
Problem List (1) Fall Status: Acute (2) Chronic kidney disease Status: Chronic (3) Chronic diastolic heart failure Status: Chronic (4) Diabetes mellitus Status: Chronic (5) Gout Status: Chronic (6) Recurrent UTI Status: Chronic (7) Elevated lactic acid level Status: Acute (8) Sick sinus syndrome Status: Chronic (9) Atrial fibrillation Status: Chronic Qualifiers: (10) HLD (hyperlipidemia) Status: Chronic Qualifiers: (11) HTN (hypertension) Status: Chronic Qualifiers: (12) Hypothyroidism Status: Chronic Qualifiers: (13) Iron deficiency anemia Status: Chronic Qualifiers: (14) GERD (gastroesophageal reflux disease) Status: Chronic Qualifiers: History of Present Illness Date of Admission: 04/30/18 Chief Complaint: Here for rehabilitation, strengthening, prior to discharge home. The patient is a 83 year old Female with below past medical history presented to [facility] Emergency Department 04/28/2018 with fall. 04/28/2018 EKG atrial sensed ventricular paced rhythm. 04/28/2018 CT brain chronic involutional changes. 04/28/2018 CT cervical spine multilevel degenerative changes. 04/28/2018 X-ray right shoulder, AC joint arthritis. Fell getting out of bed. Platelet 114, Sodium 134, CO2 19, BUN 23, Cr 1.04. PTT 28.3, UA negative. Hypoxic. 04/28/2018 Admit to Hospital. Levaquin IV for UTI. Consult speech for dysphagia. 04/29/2018 Blood, urine cultures pending. 04/30/2018 Chest X-ray showed progressive vascular congestion, congestive heart failure. 04/30/2018 Admit to TCU with debility, here for rehabilitation, strengthening, prior to discharge home. Past Medical History Past Medical History (Chronic Problems): Chronic Problems (Last Reviewed 02/24/17 @ 07:57 by Altagracia Menard) CKD (chronic kidney disease) stage 3, GFR 30-59 ml/min (Chronic) Chronic kidney disease (Chronic) Chronic diastolic heart failure (Chronic) Diabetes mellitus (Chronic) Gout (Chronic) Recurrent UTI (Chronic) Sick sinus syndrome (Chronic) Atrial fibrillation (Chronic) Cardiomyopathy, nonischemic (Chronic) HLD (hyperlipidemia) (Chronic) HTN (hypertension) (Chronic) Hypothyroidism (Chronic) Hypokalemia (Chronic) Chronic diastolic (congestive) heart failure (Chronic) Iron deficiency anemia (Chronic) GERD (gastroesophageal reflux disease) (Chronic) Cardiac pacemaker in situ (Chronic) DM2 (diabetes mellitus, type 2) (Chronic) CHF (congestive heart failure) (Chronic) Pulmonary hypertension (Chronic) Medical History: Medical History (Last Reviewed 02/24/17 @ 07:57 by Altagracia Menard) Fracture of right femur (Acute) S72.91XA Sick sinus syndrome (Chronic) I49.5 Atrial fibrillation (Chronic) I48.91 Cardiomyopathy, nonischemic (Chronic) I42.8 HLD (hyperlipidemia) (Chronic) E78.5 HTN (hypertension) (Chronic) I10 Hypothyroidism (Chronic) E03.9 Hypokalemia (Chronic) E87.6 Chronic diastolic (congestive) heart failure (Chronic) I50.32 Edema (Acute) R60.9 Acute deep vein thrombosis (DVT) of left lower extremity (Acute) I82.402 Iron deficiency anemia (Chronic) D50.9 GERD (gastroesophageal reflux disease) (Chronic) K21.9 Cardiac pacemaker in situ (Chronic) Z95.0 Hypotension (Acute) I95.9 UTI (urinary tract infection) (Acute) N39.0 DM2 (diabetes mellitus, type 2) (Chronic) E11.9 CHF (congestive heart failure) (Chronic) I50.9 Pulmonary hypertension (Chronic) I27.2 Acute kidney injury N17.9 Chronic diarrhea K52.9 Cystitis N30.90 Dementia F03.90 Depression F32.9 Encephalopathy G93.40 Gout M10.9 Postoperative anemia D64.9 H/O: hysterectomy Z90.710 Acute kidney injury (Inactive) N17.9 Afib (Inactive) I48.91 Chronic diarrhea (Inactive) K52.9 Cystitis (Inactive) N30.90 no culture obtained DVT of axillary vein, acute left (Inactive) I82.A12 Dementia (Inactive) F03.90 Depression (Inactive) F32.9 Diarrhea (Inactive) R19.7 Dvt femoral (deep venous thrombosis) (Inactive) I82.419 left leg Encephalopathy (Inactive) G93.40 Fall (Inactive) W19.XXXA Gout (Inactive) M10.9 Muscle spasm (Inactive) M62.838 Pacemaker (Inactive) Z95.0 Postoperative anemia (Inactive) D64.9 Thrush (Inactive) B37.0 Allergies amoxicillin [From Augmentin] Allergy (Verified 02/15/18 14:02) Other clavulanic acid [From Augmentin] Allergy (Verified 02/15/18 14:02) Other exenatide [From Byetta] Allergy (Verified 02/15/18 14:02) Other Penicillins [PCN] Allergy (Verified 02/15/18 14:02) Other simvastatin [From Zocor] Adverse Reaction (Severe, Verified 02/15/18 14:02) Myalgias prednisone Adverse Reaction (Unknown, Verified 02/15/18 14:02) Unknown metformin Adverse Reaction (Verified 02/15/18 14:02) Rash crestor Adverse Reaction (Intermediate, Uncoded 02/15/18 14:02) myalgia Home Medications: Ambulatory Orders Medication Instructions Recorded Digoxin 125 mcg PO DAILY #30 01/13/17 Febuxostat [Uloric] 80 mg PO DAILY #30 01/13/17 Lactobacillus Acidophilus 1 ea PO BID #30 01/13/17 [Acidophilus] Levothyroxine [Synthroid] 88 mcg PO DAILY #30 01/13/17 Melatonin 3 mg PO QHS #30 01/13/17 Pantoprazole Sodium [Protonix] 40 mg PO DAILY #30 01/13/17 metoprolol tartrate 25 mg tablet 25 mg PO BID 03/24/17 Ascorbic Acid 500 mg PO BID 05/27/17 Methenamine Hippurate 1 gm PO BID 05/27/17 Mirtazapine 7.5 mg PO QHS 05/27/17 Diphenoxylate/Atrop [Lomotil] 1 tab PO TID PRN PRN #15 tab 02/15/18 Ondansetron [Zofran Odt] 4 mg PO Q8H PRN PRN #10 tab 02/15/18 Iron Polysaccharide Complex 150 mg PO DAILYCM 04/28/18 [Ferrex 150] Linagliptin [Tradjenta] 5 mg PO QHS 04/28/18 Cholestyramine/Aspartame 4 gm PO DAILY 04/29/18 [Cholestyramine Light Packet] Apixaban [Eliquis] 5 mg PO BID 04/30/18 levoFLOXacin tablet [Levaquin 750 mg PO QODAY 04/30/18 tablet] Surgical History: Surgical History (Last Updated 02/24/17 @ 07:47 by Altagracia Menard) History of bilateral knee replacement Z96.653 History of cholecystectomy Z90.49 Presence of vena cava filter Z95.828 implantation pacemakr pacemaker generator change Surgical History: cholecystectomy, hysterectomy, pacemaker implantation, total knee arthroplasty - Bilateral., - - IVC filter, pacemaker placement, right hip fracture repair. 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 Review of Systems Constitutional: Denies: Chills, Fever, Weight Change HEENT: Denies: Head Aches, Sinus Congestion, Sinus Drainage Cardiovascular: Denies: Chest Pain, Palpitations Respiratory: Denies: Cough, Shortness of breath at rest, Sputum production Gastrointestinal: Denies: Abdominal Pain, Nausea, Vomiting Genitourinary: Denies: Dysuria Musculoskeletal: Denies: Joint Pain, Joint Tenderness Skin: Denies: Rash, Wounds Neurological: Denies: Numbness, Tingling, Focal weakness Psychiatric: Denies: Anxiety, Depression, Homicidal Ideations, Suicidal Ideations Hematologic/ Lymphatic: Denies: Easy Bruising, Easy Bleeding VTE Information - Inpt Only VTE Present on Admission: No VTE Mechan Device Prophylaxis: Knee High PALAK Hose VTE Pharm Prophylaxis ordered?: No Reason prophylaxis not ordered:: Treatment Not Indicated Patient Problems: Active and Suspected Problems (Last Reviewed 02/24/17 @ 07:57 by Altagracia Menard) Fall (Acute) - Physical Exam General: Alert, Oriented x3, Cooperative HEENT: Atraumatic, PERRLA, EOMI, Normocephalic Neck: Supple, No JVD, Negative Carotid Bruits Lungs: Normal air movement, Rales - Minimal bibasilar. Cardiovascular: Regular rate, No murmurs Abdomen: Bowel Sounds Present, Soft, Non Tender Extremities: Capillary Refill Less than 3 Seconds, Edema - Trace edema bilaterally. Skin: No rashes, No breakdown Musculoskeletal: No Tenderness to Palpation of Joints or Extremities Neurological: Cranial nerves II-XII grossly intact Psych/Mental Status: Normal Affect, Appropriate Weight: 75.1 kg Body Mass Index (BMI) 26.7 Finger Stick Blood Glucose 276 Assessment/Plan All Active Problems (Last Reviewed 02/24/17 @ 07:57 by Altagracia Menard) Elevated lactic acid level (Acute) Fall (Acute) Dyspnea, unspecified (Acute) Palpitations (Acute) Syncope and collapse (Acute) Chest pain (Acute) Fatigue (Acute) Fracture of right femur (Acute) Edema (Acute) Acute deep vein thrombosis (DVT) of left lower extremity (Acute) Hypotension (Acute) UTI (urinary tract infection) (Acute) 83 year old female with below past medical history hospitalized for fall, ruled out for urinary tract infection, admitted to TCU with debility, here for rehabilitation, strengthening, prior to discharge home alone. Debility - PT/OT. Cognition - ST. Pain - Tylenol 1000MG Q6H PRN mild pain. Bowel - Cholestyramine 4GM daily, C. Diff negative, check X-ray of abdomen to evaluate for overflow diarrhea. Pneumonia vaccination - Administer Prevnar 13 and/or Pneumovax 23 as necessary. DVT prophylaxis - Not necessary, already on Eliquis 5MG twice daily. Atrial Fibrillation - Metoprolol 25MG BID, Eliquis 5MG BID. Recurrent UTI - Methenamine 1GM BID, Vitamin C 500MG BID, urine culture negative, stop Levaquin. Chronic diastolic heart failure - Metoprolol 25MG BID, Digoxin 125MCG daily, check digoxin level, start Lasix 40MG x 1 dose, then QAM. CXR shows CHF. Gout - Uloric 80MG daily. Iron deficiency anemia - Ferrex 150MG daily. GI prophylaxis - Lactobacillus 1 tablet BID. Hypothyroidism - Levothyroxine 88MCG daily. Diabetes Mellitus II - Tradjenta 5MG daily. Insomnia - Melatonin 3MG QHS. Skin irritation - Calmoseptine BID bilateral buttocks. Insomnia/depression/decreased appetite - Mirtazapine 7.5MG QHS. Nausea - Zofran 4MG Q8H PRN. GERD - Pantoprazole 40MG daily.
--- NOTE | 2018-04-30 15:27 | HP.PCM_ITS ---
Problem List (1) Fall Status: Acute (2) Chronic kidney disease Status: Chronic (3) Chronic diastolic heart failure Status: Chronic (4) Diabetes mellitus Status: Chronic (5) Gout Status: Chronic (6) Recurrent UTI Status: Chronic (7) Elevated lactic acid level Status: Acute (8) Sick sinus syndrome Status: Chronic (9) Atrial fibrillation Status: Chronic Qualifiers: (10) HLD (hyperlipidemia) Status: Chronic Qualifiers: (11) HTN (hypertension) Status: Chronic Qualifiers: (12) Hypothyroidism Status: Chronic Qualifiers: (13) Iron deficiency anemia Status: Chronic Qualifiers: (14) GERD (gastroesophageal reflux disease) Status: Chronic Qualifiers: History of Present Illness Date of Admission: 04/30/18 Chief Complaint: Here for rehabilitation, strengthening, prior to discharge home. The patient is a 83 year old Female with below past medical history presented to [facility] Emergency Department 04/28/2018 with fall. 04/28/2018 EKG atrial sensed ventricular paced rhythm. 04/28/2018 CT brain chronic involutional changes. 04/28/2018 CT cervical spine multilevel degenerative changes. 04/28/2018 X-ray right shoulder, AC joint arthritis. Fell getting out of bed. Platelet 114, Sodium 134, CO2 19, BUN 23, Cr 1.04. PTT 28.3, UA negative. Hypoxic. 04/28/2018 Admit to Hospital. Levaquin IV for UTI. Consult speech for dysphagia. 04/29/2018 Blood, urine cultures pending. 04/30/2018 Chest X-ray showed progressive vascular congestion, congestive heart failure. 04/30/2018 Admit to TCU with debility, here for rehabilitation, strengthening, prior to discharge home. Past Medical History Past Medical History (Chronic Problems): Chronic Problems (Last Reviewed 02/24/17 @ 07:57 by Altagracia Menard) CKD (chronic kidney disease) stage 3, GFR 30-59 ml/min (Chronic) Chronic kidney disease (Chronic) Chronic diastolic heart failure (Chronic) Diabetes mellitus (Chronic) Gout (Chronic) Recurrent UTI (Chronic) Sick sinus syndrome (Chronic) Atrial fibrillation (Chronic) Cardiomyopathy, nonischemic (Chronic) HLD (hyperlipidemia) (Chronic) HTN (hypertension) (Chronic) Hypothyroidism (Chronic) Hypokalemia (Chronic) Chronic diastolic (congestive) heart failure (Chronic) Iron deficiency anemia (Chronic) GERD (gastroesophageal reflux disease) (Chronic) Cardiac pacemaker in situ (Chronic) DM2 (diabetes mellitus, type 2) (Chronic) CHF (congestive heart failure) (Chronic) Pulmonary hypertension (Chronic) Medical History: Medical History (Last Reviewed 02/24/17 @ 07:57 by Altagracia Menard) Fracture of right femur (Acute) S72.91XA Sick sinus syndrome (Chronic) I49.5 Atrial fibrillation (Chronic) I48.91 Cardiomyopathy, nonischemic (Chronic) I42.8 HLD (hyperlipidemia) (Chronic) E78.5 HTN (hypertension) (Chronic) I10 Hypothyroidism (Chronic) E03.9 Hypokalemia (Chronic) E87.6 Chronic diastolic (congestive) heart failure (Chronic) I50.32 Edema (Acute) R60.9 Acute deep vein thrombosis (DVT) of left lower extremity (Acute) I82.402 Iron deficiency anemia (Chronic) D50.9 GERD (gastroesophageal reflux disease) (Chronic) K21.9 Cardiac pacemaker in situ (Chronic) Z95.0 Hypotension (Acute) I95.9 UTI (urinary tract infection) (Acute) N39.0 DM2 (diabetes mellitus, type 2) (Chronic) E11.9 CHF (congestive heart failure) (Chronic) I50.9 Pulmonary hypertension (Chronic) I27.2 Acute kidney injury N17.9 Chronic diarrhea K52.9 Cystitis N30.90 Dementia F03.90 Depression F32.9 Encephalopathy G93.40 Gout M10.9 Postoperative anemia D64.9 H/O: hysterectomy Z90.710 Acute kidney injury (Inactive) N17.9 Afib (Inactive) I48.91 Chronic diarrhea (Inactive) K52.9 Cystitis (Inactive) N30.90 no culture obtained DVT of axillary vein, acute left (Inactive) I82.A12 Dementia (Inactive) F03.90 Depression (Inactive) F32.9 Diarrhea (Inactive) R19.7 Dvt femoral (deep venous thrombosis) (Inactive) I82.419 left leg Encephalopathy (Inactive) G93.40 Fall (Inactive) W19.XXXA Gout (Inactive) M10.9 Muscle spasm (Inactive) M62.838 Pacemaker (Inactive) Z95.0 Postoperative anemia (Inactive) D64.9 Thrush (Inactive) B37.0 Allergies amoxicillin [From Augmentin] Allergy (Verified 02/15/18 14:02) Other clavulanic acid [From Augmentin] Allergy (Verified 02/15/18 14:02) Other exenatide [From Byetta] Allergy (Verified 02/15/18 14:02) Other Penicillins [PCN] Allergy (Verified 02/15/18 14:02) Other simvastatin [From Zocor] Adverse Reaction (Severe, Verified 02/15/18 14:02) Myalgias prednisone Adverse Reaction (Unknown, Verified 02/15/18 14:02) Unknown metformin Adverse Reaction (Verified 02/15/18 14:02) Rash crestor Adverse Reaction (Intermediate, Uncoded 02/15/18 14:02) myalgia Home Medications: Ambulatory Orders Medication Instructions Recorded Digoxin 125 mcg PO DAILY #30 01/13/17 Febuxostat [Uloric] 80 mg PO DAILY #30 01/13/17 Lactobacillus Acidophilus 1 ea PO BID #30 01/13/17 [Acidophilus] Levothyroxine [Synthroid] 88 mcg PO DAILY #30 01/13/17 Melatonin 3 mg PO QHS #30 01/13/17 Pantoprazole Sodium [Protonix] 40 mg PO DAILY #30 01/13/17 metoprolol tartrate 25 mg tablet 25 mg PO BID 03/24/17 Ascorbic Acid 500 mg PO BID 05/27/17 Methenamine Hippurate 1 gm PO BID 05/27/17 Mirtazapine 7.5 mg PO QHS 05/27/17 Diphenoxylate/Atrop [Lomotil] 1 tab PO TID PRN PRN #15 tab 02/15/18 Ondansetron [Zofran Odt] 4 mg PO Q8H PRN PRN #10 tab 02/15/18 Iron Polysaccharide Complex 150 mg PO DAILYCM 04/28/18 [Ferrex 150] Linagliptin [Tradjenta] 5 mg PO QHS 04/28/18 Cholestyramine/Aspartame 4 gm PO DAILY 04/29/18 [Cholestyramine Light Packet] Apixaban [Eliquis] 5 mg PO BID 04/30/18 levoFLOXacin tablet [Levaquin 750 mg PO QODAY 04/30/18 tablet] Surgical History: Surgical History (Last Updated 02/24/17 @ 07:47 by Altagracia Menard) History of bilateral knee replacement Z96.653 History of cholecystectomy Z90.49 Presence of vena cava filter Z95.828 implantation pacemakr pacemaker generator change Surgical History: cholecystectomy, hysterectomy, pacemaker implantation, total knee arthroplasty - Bilateral., - - IVC filter, pacemaker placement, right hip fracture repair. 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 Review of Systems Constitutional: Denies: Chills, Fever, Weight Change HEENT: Denies: Head Aches, Sinus Congestion, Sinus Drainage Cardiovascular: Denies: Chest Pain, Palpitations Respiratory: Denies: Cough, Shortness of breath at rest, Sputum production Gastrointestinal: Denies: Abdominal Pain, Nausea, Vomiting Genitourinary: Denies: Dysuria Musculoskeletal: Denies: Joint Pain, Joint Tenderness Skin: Denies: Rash, Wounds Neurological: Denies: Numbness, Tingling, Focal weakness Psychiatric: Denies: Anxiety, Depression, Homicidal Ideations, Suicidal Ideations Hematologic/ Lymphatic: Denies: Easy Bruising, Easy Bleeding VTE Information - Inpt Only VTE Present on Admission: No VTE Mechan Device Prophylaxis: Knee High PALAK Hose VTE Pharm Prophylaxis ordered?: No Reason prophylaxis not ordered:: Treatment Not Indicated Patient Problems: Active and Suspected Problems (Last Reviewed 02/24/17 @ 07:57 by Altagracia Menard) Fall (Acute) - Physical Exam General: Alert, Oriented x3, Cooperative HEENT: Atraumatic, PERRLA, EOMI, Normocephalic Neck: Supple, No JVD, Negative Carotid Bruits Lungs: Normal air movement, Rales - Minimal bibasilar. Cardiovascular: Regular rate, No murmurs Abdomen: Bowel Sounds Present, Soft, Non Tender Extremities: Capillary Refill Less than 3 Seconds, Edema - Trace edema bilaterally. Skin: No rashes, No breakdown Musculoskeletal: No Tenderness to Palpation of Joints or Extremities Neurological: Cranial nerves II-XII grossly intact Psych/Mental Status: Normal Affect, Appropriate Weight: 75.1 kg Body Mass Index (BMI) 26.7 Finger Stick Blood Glucose 276 Assessment/Plan All Active Problems (Last Reviewed 02/24/17 @ 07:57 by Altagracia Menard) Elevated lactic acid level (Acute) Fall (Acute) Dyspnea, unspecified (Acute) Palpitations (Acute) Syncope and collapse (Acute) Chest pain (Acute) Fatigue (Acute) Fracture of right femur (Acute) Edema (Acute) Acute deep vein thrombosis (DVT) of left lower extremity (Acute) Hypotension (Acute) UTI (urinary tract infection) (Acute) 83 year old female with below past medical history hospitalized for fall, ruled out for urinary tract infection, admitted to TCU with debility, here for rehabilitation, strengthening, prior to discharge home alone. * Debility - PT/OT. * Cognition - ST. * Pain - Tylenol 1000MG Q6H PRN mild pain. * Bowel - Cholestyramine 4GM daily, C. Diff negative, check X-ray of abdomen to evaluate for overflow diarrhea. * Pneumonia vaccination - Administer Prevnar 13 and/or Pneumovax 23 as necessary. * DVT prophylaxis - Not necessary, already on Eliquis 5MG twice daily. * Atrial Fibrillation - Metoprolol 25MG BID, Eliquis 5MG BID. * Recurrent UTI - Methenamine 1GM BID, Vitamin C 500MG BID, urine culture negative, stop Levaquin. * Chronic diastolic heart failure - Metoprolol 25MG BID, Digoxin 125MCG daily, check digoxin level, start Lasix 40MG x 1 dose, then QAM. CXR shows CHF. * Gout - Uloric 80MG daily. * Iron deficiency anemia - Ferrex 150MG daily. * GI prophylaxis - Lactobacillus 1 tablet BID. * Hypothyroidism - Levothyroxine 88MCG daily. * Diabetes Mellitus II - Tradjenta 5MG daily. * Insomnia - Melatonin 3MG QHS. * Skin irritation - Calmoseptine BID bilateral buttocks. * Insomnia/depression/decreased appetite - Mirtazapine 7.5MG QHS. * Nausea - Zofran 4MG Q8H PRN. * GERD - Pantoprazole 40MG daily.
--- NOTE | 2018-04-30 16:22 | RAD_ITS ---
STUDY: X-RAY - ABDOMEN/PELVIS REASON FOR EXAM: Female, 83 years old. Abdominal pain. TECHNIQUE: 2 AP images of the abdomen. COMPARISON: Chest radiograph dated April 30, 2018 FINDINGS: There is a cardiac pacer device in place. There is a nonspecific bowel gas pattern. There is no demonstrated free abdominal air. There is an IVC filter in place. There are diffuse degenerative changes of the visualized lumbar spine. There is an intramedullary uriel within the visualized right proximal femur associated with a screw traversing the right femoral neck. RAD/Abdomen Single View (Portable) IMPRESSION: Nonspecific bowel gas pattern. Electronically Signed: Estrella Messer MD at 18:32 EDT Tel , Service support ,
[2018-04-30] MEDS: Furosemide 40 MG Tablet PO (18:22)
[2018-04-30] MEDS: APIXABAN 5 MG TABLET PO (18:22)
[2018-04-30] MEDS: Ascorbic Acid 500 MG Tablet PO (18:23)
[2018-04-30] MEDS: METHENAMINE HIPPURATE 1 GM TABLET PO (18:23)
[2018-04-30 18:26] VITALS: BP 115/66; PULSE 82
[2018-04-30] MEDS: Metoprolol Tartrate 25 MG Tablet PO (18:26)
[2018-04-30] MEDS: Senna/Docusate Sodium 1 Tablet PO (18:28)
[2018-04-30] MEDS: Magnesium Citrate 300 ML PO (18:37)
[2018-04-30 21:06] LABS: Bedside Glucose 184 mg/dL (70-110)
[2018-04-30] MEDS: Mirtazapine 15 MG Tablet 7.5 MG PO (21:45)
[2018-04-30] MEDS: LINAGLIPTIN 5 MG TABLET PO (21:45)
[2018-04-30] MEDS: MELATONIN 3 MG TABLET PO (21:45)
[2018-04-30] MEDS: Nystatin Powder 15gm Bottle 1 APPLIC TOPICAL (21:46)
[2018-04-30] MEDS: Menthol/Lanolin/Calamine/Znox 113 GM Tube 1 APPLIC TOPICAL (21:46)
[2018-05-01] MEDS: Polyethylene Glycol 3350 17 GM PACKET PO (05:07)
[2018-05-01] MEDS: Pantoprazole Sodium 40 MG Tablet PO (05:10)
[2018-05-01] MEDS: Bisacodyl 5 MG Tablet 10 MG PO (05:10)
[2018-05-01] MEDS: Furosemide 40 MG Tablet PO (05:10)
[2018-05-01] MEDS: Febuxostat 40 MG TABLET 80 MG PO (05:10)
[2018-05-01] MEDS: Levothyroxine 88 MCG Tablet PO (05:10)
[2018-05-01] MEDS: APIXABAN 5 MG TABLET PO ×2 (05:10→18:01)
[2018-05-01] MEDS: Senna/Docusate Sodium 1 Tablet PO (05:11)
[2018-05-01] MEDS: METHENAMINE HIPPURATE 1 GM TABLET PO ×2 (05:11→18:00)
[2018-05-01 05:12] VITALS: BP 116/72; PULSE 80
[2018-05-01] MEDS: Metoprolol Tartrate 25 MG Tablet PO ×2 (05:12→18:00)
[2018-05-01] MEDS: Menthol/Lanolin/Calamine/Znox 113 GM Tube 1 APPLIC TOPICAL ×2 (05:16→21:23)
[2018-05-01] MEDS: Nystatin Powder 15gm Bottle 1 APPLIC TOPICAL ×2 (05:16→21:23)
[2018-05-01 06:51] LABS: Bedside Glucose 145 mg/dL (70-110)
[2018-05-01 06:54] LABS: Absolute Lymphocyte Count 1.44 X10^3/ul (0.83-4.51); Absolute Neutrophil Count 3.6 X10^3/uL (2.0-7.7); Basophil# 0.01 X10^3/uL; Basophil% 0.2 % (0-1); Eosinophil# 0.08 X10^3/uL; Eosinophils% 1.3 % (0-5); Hematocrit 43.2 % (37-47); Hemoglobin 14.3 g/dl (12.0-15.0); Lymphocyte # 1.44 X10^3/ul (4.0); Lymphocyte % 23.9 % (19-41); Mean Corp Hgb Conc 33.1 g/gl (32-36); Mean Corpuscular Hgb 28.1 pg (27.0-32.0); Mean Corpuscular Volume 84.9 fL (81-99); Mean Platelet Vol. 10.8 fl (6.2-12.0); Monocyte# 0.89 X10^3/uL; Monocyte% 14.8 % (0-10); Neutrophil # 3.58 X10^3/uL (2.7-7.7); Neutrophil % 59.5 % (47-70); Platelet Count 132 K/mm3 (150-450); RBC Distribution Width CV 14.5 % (11.6-14.6); RBC Distribution Width SD 44.3 fl (35.1-43.9); Red Blood Count 5.09 M/mm3 (4.2-5.4)
[2018-05-01 06:59] LABS: POSITIVE COUNT NO; POSITIVE DIFFERENTIAL NO; POSITIVE MORPHOLOGY NO
[2018-05-01 08:02] LABS: Anion Gap 6 (5-15); BUN 18 mg/dL (7-18); BUN/Creat Ratio 21.8 RATIO (10-20); Calcium,Total 8.9 mg/dL (8.5-10.1); Chloride 109 mmol/L (98-107); Creatinine, Serum 0.82 mg/dL (0.55-1.02); EST Glomerular Filtration Rate 70 mL/min (>60); Est Glom Filt Rate - Afr Amer 85 mL/min (>60); Estimated Creatinine Clearance 48.66 ml/min; Glucose 149 mg/dL (74-106); Potassium 3.4 mmol/L (3.5-5.1); Sodium Level 140 mmol/L (136-145)
[2018-05-01 08:33] LABS: Digoxin Level 0.76 ng/mL (0.80-2.00)
[2018-05-01] MEDS: Iron Polysaccharide Complex 150 MG CAPSULE PO (09:10)
[2018-05-01 09:11] VITALS: BP 111/78; PULSE 84
[2018-05-01] MEDS: Ascorbic Acid 500 MG Tablet PO ×2 (09:11→18:00)
[2018-05-01] MEDS: Digoxin 125 MCG Tablet PO (09:11)
--- NOTE | 2018-05-01 09:29 | NURSING ---
NO for KCL 20mEq x1 now then 20mEq daily, recheck BMP in AM.
--- NOTE | 2018-05-01 10:08 | NURSING ---
Verified with pharmacy okay to give digoxin, toxicology pending, Heart rate 84 and regular.
[2018-05-01] MEDS: Tuberculin,Purif.prot.deriv. 50 TU/ML Vial 5 ML ID (10:45)
[2018-05-01 11:00] VITALS: PULSE 84
[2018-05-01 11:01] LABS: Bedside Glucose 206 mg/dL (70-110)
[2018-05-01] MEDS: Acetaminophen 500 MG Tablet 1000 MG PO (12:41)
[2018-05-01 16:00] VITALS: BP 91/46; PULSE 83; RESP 18; TEMP 36.8; O2SAT 98
[2018-05-01 17:11] LABS: Bedside Glucose 180 mg/dL (70-110)
[2018-05-01 18:00] VITALS: BP 110/60; PULSE 79
[2018-05-01] MEDS: MELATONIN 3 MG TABLET PO (21:23)
[2018-05-01] MEDS: Mirtazapine 15 MG Tablet 7.5 MG PO (21:24)
[2018-05-01] MEDS: LINAGLIPTIN 5 MG TABLET PO (21:24)
[2018-05-01 21:26] LABS: Bedside Glucose 185 mg/dL (70-110)
[2018-05-02 05:50] VITALS: BP 117/65; PULSE 76
[2018-05-02] MEDS: Furosemide 40 MG Tablet PO (05:50)
[2018-05-02] MEDS: Digoxin 125 MCG Tablet PO (05:50)
[2018-05-02] MEDS: Menthol/Lanolin/Calamine/Znox 113 GM Tube 1 APPLIC TOPICAL ×2 (05:50→20:17)
[2018-05-02] MEDS: Metoprolol Tartrate 25 MG Tablet PO ×2 (05:50→16:45)
[2018-05-02] MEDS: METHENAMINE HIPPURATE 1 GM TABLET PO ×2 (05:50→16:45)
[2018-05-02] MEDS: APIXABAN 5 MG TABLET PO ×2 (05:50→16:46)
[2018-05-02] MEDS: Pantoprazole Sodium 40 MG Tablet PO (05:51)
[2018-05-02] MEDS: Nystatin Powder 15gm Bottle 1 APPLIC TOPICAL ×2 (05:51→20:17)
[2018-05-02] MEDS: Febuxostat 40 MG TABLET 80 MG PO (05:51)
[2018-05-02] MEDS: Levothyroxine 88 MCG Tablet PO (05:51)
[2018-05-02 06:45] LABS: Bedside Glucose 176 mg/dL (70-110)
[2018-05-02] MEDS: Ascorbic Acid 500 MG Tablet PO ×2 (08:25→16:45)
[2018-05-02] MEDS: Iron Polysaccharide Complex 150 MG CAPSULE PO (08:26)
[2018-05-02 09:25] LABS: Anion Gap 5 (5-15); BUN 24 mg/dL (7-18); BUN/Creat Ratio 25.7 RATIO (10-20); Calcium,Total 8.7 mg/dL (8.5-10.1); Chloride 109 mmol/L (98-107); Creatinine, Serum 0.93 mg/dL (0.55-1.02); EST Glomerular Filtration Rate 61 mL/min (>60); Est Glom Filt Rate - Afr Amer 74 mL/min (>60); Estimated Creatinine Clearance 42.91 ml/min; Glucose 166 mg/dL (74-106); Potassium 3.7 mmol/L (3.5-5.1); Sodium Level 138 mmol/L (136-145)
[2018-05-02 11:16] LABS: Bedside Glucose 191 mg/dL (70-110)
[2018-05-02 11:46] LABS: Bedside Glucose 169 mg/dL (70-110)
--- NOTE | 2018-05-02 15:04 | NURSING ---
Pt has not had any loose stools this shift.
[2018-05-02 15:23] VITALS: BP 118/66; PULSE 74; RESP 18; TEMP 36.1; O2SAT 98
[2018-05-02 16:45] VITALS: BP 118/66; PULSE 74
[2018-05-02 17:05] LABS: Bedside Glucose 231 mg/dL (70-110)
--- NOTE | 2018-05-02 17:43 | PCM.PN.RX ---
<LeydiMichael cho - Last Filed: 05/02/18 17:43> Progress Note - Pharmacy Subjective: TCU Admission Objective: Allergies amoxicillin [From Augmentin] Allergy (Verified 02/15/18 14:02) Other clavulanic acid [From Augmentin] Allergy (Verified 02/15/18 14:02) Other exenatide [From Byetta] Allergy (Verified 02/15/18 14:02) Other Penicillins [PCN] Allergy (Verified 02/15/18 14:02) Other simvastatin [From Zocor] Adverse Reaction (Severe, Verified 02/15/18 14:02) Myalgias prednisone Adverse Reaction (Unknown, Verified 02/15/18 14:02) Unknown metformin Adverse Reaction (Verified 02/15/18 14:02) Rash crestor Adverse Reaction (Intermediate, Uncoded 02/15/18 14:02) myalgia Current Medications Generic Name Dose Route Start Last Admin Trade Name Freq PRN Reason Stop Dose Admin Acetaminophen 1,000 mg 04/30/18 16:01 05/01/18 12:41 Tylenol PO 1,000 mg Q6H PRN Administration MILD PAIN (1-3/10) Apixaban 5 mg 04/30/18 18:00 05/02/18 16:46 Eliquis PO 5 mg BID NELL Administration Ascorbic Acid 500 mg 04/30/18 17:00 05/02/18 16:45 Vitamin C PO 500 mg BIDCM NELL Administration Bisacodyl 10 mg 04/30/18 16:54 05/01/18 05:10 Dulcolax PO 10 mg DAILY PRN Administration Constipation Calamine/Phenol 1 applic 04/30/18 22:00 05/02/18 05:50 Calmoseptine Ointment TOPICAL 1 applicatio 0600,2200 NELL Administration Protocol Digoxin 125 mcg 05/01/18 06:00 05/02/18 05:50 Lanoxin PO 125 mcg DAILY NELL Administration Furosemide 40 mg 05/01/18 06:00 05/02/18 05:50 Lasix PO 40 mg DAILY NELL Administration Lactobacillus Acidophilus 1 tablet 04/30/18 18:00 05/02/18 16:45 Acidophilus PO 1 tablet BID NELL Administration Levothyroxine Sodium 88 mcg 05/01/18 06:00 05/02/18 05:51 Synthroid PO 88 mcg DAILY NELL Administration Linagliptin 5 mg 04/30/18 22:00 05/01/18 21:24 Tradjenta PO 5 mg QHS NELL Administration Melatonin 3 mg 04/30/18 22:00 05/01/18 21:23 Melatonin PO 3 mg QHS NELL Administration Methenamine Hippurate 1 gm 04/30/18 18:00 05/02/18 16:45 Hiprex PO 1 gm BID NELL Administration Metoprolol Tartrate 25 mg 04/30/18 18:00 05/02/18 16:45 Lopressor (Beta Prema) PO 25 mg BID NELL Administration Mirtazapine 7.5 mg 04/30/18 22:00 05/01/18 21:24 Remeron PO 7.5 mg QHS [facility] Administration Nystatin 1 applic 04/30/18 22:00 05/02/18 05:51 Mycostatin Powder TOPICAL 1 applicatio 0600,2200 NELL Administration Protocol Ondansetron HCl 4 mg 04/30/18 15:39 Zofran Odt PO Q8H PRN PRN NAUSEA Pantoprazole Sodium 40 mg 05/01/18 06:00 05/02/18 05:51 Protonix PO 40 mg DAILY [facility] Administration Polyethylene Glycol 17 gm 05/01/18 06:00 05/02/18 05:51 Miralax PO Not Given DAILY [facility] Polysaccharide Iron Complex 150 mg 05/01/18 08:00 05/02/18 08:26 [facility]rex 150 [facility] Administration Potassium Chloride 20 meq 05/02/18 08:00 05/02/18 08:25 K[facility]Dur [facility] Administration Senna/Docusate Sodium 1 tablet 04/30/18 18:00 05/02/18 16:46 Senokot-S, Brenda-Colace PO Not Given BID [facility] Tuberculin PPD 5 tu 05/08/18 10:00 Tubersol, Aplisol, Ppd ID 05/08/18 10:01 X1 ONE Problem List (Last Reviewed 02/24/17 @ 07:57 by Altagracia Menard) Fall (Acute) Chronic kidney disease (Chronic) Chronic diastolic heart failure (Chronic) Diabetes mellitus (Chronic) Gout (Chronic) Recurrent UTI (Chronic) Vital Signs Temp Pulse Resp BP Pulse Ox 96.9 F L 74 18 118/66 98 05/02/18 15:23 05/02/18 16:45 05/02/18 15:23 05/02/18 16:45 05/02/18 15:23 Oxygen Flow Rate (L/min) 3 Oxygen Delivery Method Room Air Weight: 75.1 kg Body Mass Index (BMI) 26.7 Finger Stick Blood Glucose 276 Sodium 138 mmol/L (136-145) 05/02/18 08:52 Potassium 3.7 mmol/L (3.5-5.1) 05/02/18 08:52 Chloride 109 mmol/L (98-107) H 05/02/18 08:52 Carbon Dioxide 24.0 mmol/L (21.0-32.0) 05/02/18 08:52 Anion Gap 5 (5-15) 05/02/18 08:52 BUN 24 mg/dL (7-18) H 05/02/18 08:52 Creatinine 0.93 mg/dL (0.55-1.02) 05/02/18 08:52 Est GFR (MDRD) Af Amer 74 mL/min (>60) 05/02/18 08:52 Est GFR (MDRD) Non-Af 61 mL/min (>60) 05/02/18 08:52 BUN/Creatinine Ratio 25.7 RATIO (10-20) H 05/02/18 08:52 Glucose 166 mg/dL (74-106) H 05/02/18 08:52 Assessment/Plan: 1) Pain APAP for mild pain. Continue to monitor prn medication use, daily pain scores. 2) AFib/CHF Apixaban, digoxin, metoprolol, furosemide/KCL. Continue to monitor BP/HR, renal function, electrolytes, swelling. 3) DM2 Linagliptin. Continue to monitor BGT. 4) Hypothyroidism Levothyroxine. Continue to monitor s/s hyper/hypothyroidism. 5) Gout Febuxostat. Continue to monitor s/s gout. 6) GI Lactobacillus, pantoprazole, ondansetron prn. Continue to monitor s/s GI distress, prn medication use. 7) Sleep Melatonin at HS, mirtazapine. Continue to monitor for insomnia, depression Psychotropic Medications: None Unnecessary Medications: None Bowel Regimen: 8) Senna/s, PEG, prn bisacodyl. Continue to monitor prn medication use, for constipation/diarrhea. Date of Note:: 05/02/18 - Provider Comments Provider responsibility: Provider responsible to enter orders to implement recommendations <Eliseo Jaffe Chi - Last Filed: 05/03/18 08:14> Progress Note - Pharmacy Subjective: [] Objective: Allergies amoxicillin [From Augmentin] Allergy (Verified 02/15/18 14:02) Other clavulanic acid [From Augmentin] Allergy (Verified 02/15/18 14:02) Other exenatide [From Byetta] Allergy (Verified 02/15/18 14:02) Other Penicillins [PCN] Allergy (Verified 02/15/18 14:02) Other simvastatin [From Zocor] Adverse Reaction (Severe, Verified 02/15/18 14:02) Myalgias prednisone Adverse Reaction (Unknown, Verified 02/15/18 14:02) Unknown metformin Adverse Reaction (Verified 02/15/18 14:02) Rash crestor Adverse Reaction (Intermediate, Uncoded 02/15/18 14:02) myalgia Current Medications Generic Name Dose Route Start Last Admin Trade Name Freq PRN Reason Stop Dose Admin Acetaminophen 1,000 mg 04/30/18 16:01 05/02/18 20:16 Tylenol PO 1,000 mg Q6H PRN Administration MILD PAIN (1-3/10) Apixaban 5 mg 04/30/18 18:00 05/03/18 06:07 Eliquis PO 5 mg BID NELL Administration Ascorbic Acid 500 mg 04/30/18 17:00 05/02/18 16:45 Vitamin C PO 500 mg BIDCM NELL Administration Bisacodyl 10 mg 04/30/18 16:54 05/01/18 05:10 Dulcolax PO 10 mg DAILY PRN Administration Constipation Calamine/Phenol 1 applic 04/30/18 22:00 05/03/18 06:06 Calmoseptine Ointment TOPICAL 1 applicatio 0600,2200 NELL Administration Protocol Digoxin 125 mcg 05/01/18 06:00 05/03/18 06:07 Lanoxin PO 125 mcg DAILY NELL Administration Furosemide 40 mg 05/01/18 06:00 05/03/18 06:14 Lasix PO 40 mg DAILY NELL Administration Lactobacillus Acidophilus 1 tablet 04/30/18 18:00 05/03/18 06:07 Acidophilus PO 1 tablet BID NELL Administration Levothyroxine Sodium 88 mcg 05/01/18 06:00 05/03/18 06:15 Synthroid PO 88 mcg DAILY NELL Administration Linagliptin 5 mg 04/30/18 22:00 05/02/18 20:18 Tradjenta PO 5 mg QHS NELL Administration Melatonin 3 mg 04/30/18 22:00 05/02/18 20:17 Melatonin PO 3 mg QHS NELL Administration Methenamine Hippurate 1 gm 04/30/18 18:00 05/03/18 06:07 Hiprex PO 1 gm BID NELL Administration Metoprolol Tartrate 25 mg 04/30/18 18:00 05/03/18 06:14 Lopressor (Beta Prema) PO 25 mg BID NELL Administration Mirtazapine 7.5 mg 04/30/18 22:00 05/02/18 20:17 Remeron PO 7.5 mg QHS NELL Administration Nystatin 1 applic 04/30/18 22:00 05/03/18 06:15 Mycostatin Powder TOPICAL 1 applicatio 0600,2200 NELL Administration Protocol Ondansetron HCl 4 mg 04/30/18 15:39 Zofran Odt PO Q8H PRN PRN NAUSEA Pantoprazole Sodium 40 mg 05/01/18 06:00 05/03/18 06:15 Protonix PO 40 mg DAILY NELL Administration Polyethylene Glycol 17 gm 05/01/18 06:00 05/03/18 06:15 Miralax PO Not Given DAILY [facility] Polysaccharide Iron Complex 150 mg 05/01/18 08:00 05/02/18 08:26 Ferrex 150 PO 150 mg DAILYCM NELL Administration Potassium Chloride 20 meq 05/02/18 08:00 05/02/18 08:25 K-Dur PO 20 meq DAILYCM [facility] Administration Senna/Docusate Sodium 1 tablet 04/30/18 18:00 05/03/18 06:15 Senokot-S, Brenda-Colace PO 1 tablet BID NELL Administration Tuberculin PPD 5 tu 05/08/18 10:00 Tubersol, Aplisol, Ppd ID 05/08/18 10:01 X1 ONE Problem List (Last Reviewed 02/24/17 @ 07:57 by Altagracia Menard) Fall (Acute) Chronic kidney disease (Chronic) Chronic diastolic heart failure (Chronic) Diabetes mellitus (Chronic) Gout (Chronic) Recurrent UTI (Chronic) Vital Signs Temp Pulse Resp BP Pulse Ox 96.9 F L 80 18 115/59 L 98 05/02/18 15:23 05/03/18 06:14 05/02/18 15:23 05/03/18 06:14 05/02/18 15:23 Oxygen Flow Rate (L/min) 3 Oxygen Delivery Method Room Air Weight: 75.1 kg Body Mass Index (BMI) 26.7 Finger Stick Blood Glucose 276 Sodium 138 mmol/L (136-145) 05/02/18 08:52 Potassium 3.7 mmol/L (3.5-5.1) 05/02/18 08:52 Chloride 109 mmol/L (98-107) H 05/02/18 08:52 Carbon Dioxide 24.0 mmol/L (21.0-32.0) 05/02/18 08:52 Anion Gap 5 (5-15) 05/02/18 08:52 BUN 24 mg/dL (7-18) H 05/02/18 08:52 Creatinine 0.93 mg/dL (0.55-1.02) 05/02/18 08:52 Est GFR (MDRD) Af Amer 74 mL/min (>60) 05/02/18 08:52 Est GFR (MDRD) Non-Af 61 mL/min (>60) 05/02/18 08:52 BUN/Creatinine Ratio 25.7 RATIO (10-20) H 05/02/18 08:52 Glucose 166 mg/dL (74-106) H 05/02/18 08:52 Assessment/Plan: Psychotropic Medications: Unnecessary Medications: Bowel Regimen: - Provider Comments Provider responsibility: Provider responsible to enter orders to implement recommendations Provider Comments to Recommendations by Pharmacy: Agree
--- NOTE | 2018-05-02 17:49 | PHA.CONS_ITS ---
<LeydiMichael cho - Last Filed: 05/02/18 17:43> Progress Note - Pharmacy Subjective: TCU Admission Objective: Allergies amoxicillin [From Augmentin] Allergy (Verified 02/15/18 14:02) Other clavulanic acid [From Augmentin] Allergy (Verified 02/15/18 14:02) Other exenatide [From Byetta] Allergy (Verified 02/15/18 14:02) Other Penicillins [PCN] Allergy (Verified 02/15/18 14:02) Other simvastatin [From Zocor] Adverse Reaction (Severe, Verified 02/15/18 14:02) Myalgias prednisone Adverse Reaction (Unknown, Verified 02/15/18 14:02) Unknown metformin Adverse Reaction (Verified 02/15/18 14:02) Rash crestor Adverse Reaction (Intermediate, Uncoded 02/15/18 14:02) myalgia Current Medications Generic Name Dose Route Start Last Admin Trade Name Freq PRN Reason Stop Dose Admin Acetaminophen 1,000 mg 04/30/18 16:01 05/01/18 12:41 Tylenol PO 1,000 mg Q6H PRN Administration MILD PAIN (1-3/10) Apixaban 5 mg 04/30/18 18:00 05/02/18 16:46 Eliquis PO 5 mg BID NELL Administration Ascorbic Acid 500 mg 04/30/18 17:00 05/02/18 16:45 Vitamin C PO 500 mg BIDCM NELL Administration Bisacodyl 10 mg 04/30/18 16:54 05/01/18 05:10 Dulcolax PO 10 mg DAILY PRN Administration Constipation Calamine/Phenol 1 applic 04/30/18 22:00 05/02/18 05:50 Calmoseptine Ointment TOPICAL 1 applicatio 0600,2200 NELL Administration Protocol Digoxin 125 mcg 05/01/18 06:00 05/02/18 05:50 Lanoxin PO 125 mcg DAILY NELL Administration Furosemide 40 mg 05/01/18 06:00 05/02/18 05:50 Lasix PO 40 mg DAILY NELL Administration Lactobacillus Acidophilus 1 tablet 04/30/18 18:00 05/02/18 16:45 Acidophilus PO 1 tablet BID NELL Administration Levothyroxine Sodium 88 mcg 05/01/18 06:00 05/02/18 05:51 Synthroid PO 88 mcg DAILY NELL Administration Linagliptin 5 mg 04/30/18 22:00 05/01/18 21:24 Tradjenta PO 5 mg QHS NELL Administration Melatonin 3 mg 04/30/18 22:00 05/01/18 21:23 Melatonin PO 3 mg QHS NELL Administration Methenamine Hippurate 1 gm 04/30/18 18:00 05/02/18 16:45 Hiprex PO 1 gm BID NELL Administration Metoprolol Tartrate 25 mg 04/30/18 18:00 05/02/18 16:45 Lopressor (Beta Prema) PO 25 mg BID NELL Administration Mirtazapine 7.5 mg 04/30/18 22:00 05/01/18 21:24 Remeron PO 7.5 mg QHS [facility] Administration Nystatin 1 applic 04/30/18 22:00 05/02/18 05:51 Mycostatin Powder TOPICAL 1 applicatio 0600,2200 NELL Administration Protocol Ondansetron HCl 4 mg 04/30/18 15:39 Zofran Odt PO Q8H PRN PRN NAUSEA Pantoprazole Sodium 40 mg 05/01/18 06:00 05/02/18 05:51 Protonix PO 40 mg DAILY [facility] Administration Polyethylene Glycol 17 gm 05/01/18 06:00 05/02/18 05:51 Miralax PO Not Given DAILY [facility] Polysaccharide Iron Complex 150 mg 05/01/18 08:00 05/02/18 08:26 [facility] Administration Potassium Chloride 20 meq 05/02/18 08:00 05/02/18 08:25 [facility] Administration Senna/Docusate Sodium 1 tablet 04/30/18 18:00 05/02/18 16:46 Senokot-S, Brenda-Colace PO Not Given BID [facility] Tuberculin PPD 5 tu 05/08/18 10:00 Tubersol, Aplisol, Ppd ID 05/08/18 10:01 X1 ONE Problem List (Last Reviewed 02/24/17 @ 07:57 by Altagracia Menard) Fall (Acute) Chronic kidney disease (Chronic) Chronic diastolic heart failure (Chronic) Diabetes mellitus (Chronic) Gout (Chronic) Recurrent UTI (Chronic) Vital Signs Temp Pulse Resp BP Pulse Ox 96.9 F L 74 18 118/66 98 05/02/18 15:23 05/02/18 16:45 05/02/18 15:23 05/02/18 16:45 05/02/18 15:23 Oxygen Flow Rate (L/min) 3 Oxygen Delivery Method Room Air Weight: 75.1 kg Body Mass Index (BMI) 26.7 Finger Stick Blood Glucose 276 Sodium 138 mmol/L (136-145) 05/02/18 08:52 Potassium 3.7 mmol/L (3.5-5.1) 05/02/18 08:52 Chloride 109 mmol/L (98-107) H 05/02/18 08:52 Carbon Dioxide 24.0 mmol/L (21.0-32.0) 05/02/18 08:52 Anion Gap 5 (5-15) 05/02/18 08:52 BUN 24 mg/dL (7-18) H 05/02/18 08:52 Creatinine 0.93 mg/dL (0.55-1.02) 05/02/18 08:52 Est GFR (MDRD) Af Amer 74 mL/min (>60) 05/02/18 08:52 Est GFR (MDRD) Non-Af 61 mL/min (>60) 05/02/18 08:52 BUN/Creatinine Ratio 25.7 RATIO (10-20) H 05/02/18 08:52 Glucose 166 mg/dL (74-106) H 05/02/18 08:52 Assessment/Plan: 1) Pain APAP for mild pain. Continue to monitor prn medication use, daily pain scores. 2) AFib/CHF Apixaban, digoxin, metoprolol, furosemide/KCL. Continue to monitor BP/HR, renal function, electrolytes, swelling. 3) DM2 Linagliptin. Continue to monitor BGT. 4) Hypothyroidism Levothyroxine. Continue to monitor s/s hyper/hypothyroidism. 5) Gout Febuxostat. Continue to monitor s/s gout. 6) GI Lactobacillus, pantoprazole, ondansetron prn. Continue to monitor s/s GI distress, prn medication use. 7) Sleep Melatonin at HS, mirtazapine. Continue to monitor for insomnia, depression Psychotropic Medications: None Unnecessary Medications: None Bowel Regimen: 8) Senna/s, PEG, prn bisacodyl. Continue to monitor prn medication use, for constipation/diarrhea. Date of Note:: 05/02/18 - Provider Comments Provider responsibility: Provider responsible to enter orders to implement recommendations <Eliseo Jaffe Chi - Last Filed: 05/03/18 08:14> Progress Note - Pharmacy Subjective: [] Objective: Allergies amoxicillin [From Augmentin] Allergy (Verified 02/15/18 14:02) Other clavulanic acid [From Augmentin] Allergy (Verified 02/15/18 14:02) Other exenatide [From Byetta] Allergy (Verified 02/15/18 14:02) Other Penicillins [PCN] Allergy (Verified 02/15/18 14:02) Other simvastatin [From Zocor] Adverse Reaction (Severe, Verified 02/15/18 14:02) Myalgias prednisone Adverse Reaction (Unknown, Verified 02/15/18 14:02) Unknown metformin Adverse Reaction (Verified 02/15/18 14:02) Rash crestor Adverse Reaction (Intermediate, Uncoded 02/15/18 14:02) myalgia Current Medications Generic Name Dose Route Start Last Admin Trade Name Freq PRN Reason Stop Dose Admin Acetaminophen 1,000 mg 04/30/18 16:01 05/02/18 20:16 Tylenol PO 1,000 mg Q6H PRN Administration MILD PAIN (1-3/10) Apixaban 5 mg 04/30/18 18:00 05/03/18 06:07 Eliquis PO 5 mg BID NELL Administration Ascorbic Acid 500 mg 04/30/18 17:00 05/02/18 16:45 Vitamin C PO 500 mg BIDCM NELL Administration Bisacodyl 10 mg 04/30/18 16:54 05/01/18 05:10 Dulcolax PO 10 mg DAILY PRN Administration Constipation Calamine/Phenol 1 applic 04/30/18 22:00 05/03/18 06:06 Calmoseptine Ointment TOPICAL 1 applicatio 0600,2200 NELL Administration Protocol Digoxin 125 mcg 05/01/18 06:00 05/03/18 06:07 Lanoxin PO 125 mcg DAILY NELL Administration Furosemide 40 mg 05/01/18 06:00 05/03/18 06:14 Lasix PO 40 mg DAILY NELL Administration Lactobacillus Acidophilus 1 tablet 04/30/18 18:00 05/03/18 06:07 Acidophilus PO 1 tablet BID NELL Administration Levothyroxine Sodium 88 mcg 05/01/18 06:00 05/03/18 06:15 Synthroid PO 88 mcg DAILY NELL Administration Linagliptin 5 mg 04/30/18 22:00 05/02/18 20:18 Tradjenta PO 5 mg QHS NELL Administration Melatonin 3 mg 04/30/18 22:00 05/02/18 20:17 Melatonin PO 3 mg QHS NELL Administration Methenamine Hippurate 1 gm 04/30/18 18:00 05/03/18 06:07 Hiprex PO 1 gm BID NELL Administration Metoprolol Tartrate 25 mg 04/30/18 18:00 05/03/18 06:14 Lopressor (Beta Prema) PO 25 mg BID NELL Administration Mirtazapine 7.5 mg 04/30/18 22:00 05/02/18 20:17 Remeron PO 7.5 mg QHS NELL Administration Nystatin 1 applic 04/30/18 22:00 05/03/18 06:15 Mycostatin Powder TOPICAL 1 applicatio 0600,2200 NELL Administration Protocol Ondansetron HCl 4 mg 04/30/18 15:39 Zofran Odt PO Q8H PRN PRN NAUSEA Pantoprazole Sodium 40 mg 05/01/18 06:00 05/03/18 06:15 Protonix PO 40 mg DAILY NELL Administration Polyethylene Glycol 17 gm 05/01/18 06:00 05/03/18 06:15 Miralax PO Not Given DAILY [facility] Polysaccharide Iron Complex 150 mg 05/01/18 08:00 05/02/18 08:26 Ferrex 150 PO 150 mg DAILYCM NELL Administration Potassium Chloride 20 meq 05/02/18 08:00 05/02/18 08:25 K-Dur PO 20 meq DAILYCM [facility] Administration Senna/Docusate Sodium 1 tablet 04/30/18 18:00 05/03/18 06:15 Senokot-S, Brenda-Colace PO 1 tablet BID NELL Administration Tuberculin PPD 5 tu 05/08/18 10:00 Tubersol, Aplisol, Ppd ID 05/08/18 10:01 X1 ONE Problem List (Last Reviewed 02/24/17 @ 07:57 by Altagracia Menard) Fall (Acute) Chronic kidney disease (Chronic) Chronic diastolic heart failure (Chronic) Diabetes mellitus (Chronic) Gout (Chronic) Recurrent UTI (Chronic) Vital Signs Temp Pulse Resp BP Pulse Ox 96.9 F L 80 18 115/59 L 98 05/02/18 15:23 05/03/18 06:14 05/02/18 15:23 05/03/18 06:14 05/02/18 15:23 Oxygen Flow Rate (L/min) 3 Oxygen Delivery Method Room Air Weight: 75.1 kg Body Mass Index (BMI) 26.7 Finger Stick Blood Glucose 276 Sodium 138 mmol/L (136-145) 05/02/18 08:52 Potassium 3.7 mmol/L (3.5-5.1) 05/02/18 08:52 Chloride 109 mmol/L (98-107) H 05/02/18 08:52 Carbon Dioxide 24.0 mmol/L (21.0-32.0) 05/02/18 08:52 Anion Gap 5 (5-15) 05/02/18 08:52 BUN 24 mg/dL (7-18) H 05/02/18 08:52 Creatinine 0.93 mg/dL (0.55-1.02) 05/02/18 08:52 Est GFR (MDRD) Af Amer 74 mL/min (>60) 05/02/18 08:52 Est GFR (MDRD) Non-Af 61 mL/min (>60) 05/02/18 08:52 BUN/Creatinine Ratio 25.7 RATIO (10-20) H 05/02/18 08:52 Glucose 166 mg/dL (74-106) H 05/02/18 08:52 Assessment/Plan: Psychotropic Medications: Unnecessary Medications: Bowel Regimen: - Provider Comments Provider responsibility: Provider responsible to enter orders to implement recommendations Provider Comments to Recommendations by Pharmacy: Agree
[2018-05-02] MEDS: Acetaminophen 500 MG Tablet 1000 MG PO (20:16)
[2018-05-02] MEDS: MELATONIN 3 MG TABLET PO (20:17)
[2018-05-02] MEDS: Mirtazapine 15 MG Tablet 7.5 MG PO (20:17)
[2018-05-02] MEDS: LINAGLIPTIN 5 MG TABLET PO (20:18)
[2018-05-02 21:00] LABS: Bedside Glucose 241 mg/dL (70-110)
[2018-05-03] MEDS: Menthol/Lanolin/Calamine/Znox 113 GM Tube 1 APPLIC TOPICAL ×2 (06:06→21:57)
[2018-05-03 06:07] VITALS: BP 115/59; PULSE 80
[2018-05-03] MEDS: METHENAMINE HIPPURATE 1 GM TABLET PO ×2 (06:07→16:40)
[2018-05-03] MEDS: APIXABAN 5 MG TABLET PO ×2 (06:07→16:43)
[2018-05-03] MEDS: Digoxin 125 MCG Tablet PO (06:07)
[2018-05-03 06:14] VITALS: BP 115/59; PULSE 80
[2018-05-03] MEDS: Metoprolol Tartrate 25 MG Tablet PO ×2 (06:14→16:40)
[2018-05-03] MEDS: Furosemide 40 MG Tablet PO (06:14)
[2018-05-03] MEDS: Senna/Docusate Sodium 1 Tablet PO ×2 (06:15→16:40)
[2018-05-03] MEDS: Febuxostat 40 MG TABLET 80 MG PO (06:15)
[2018-05-03] MEDS: Nystatin Powder 15gm Bottle 1 APPLIC TOPICAL ×2 (06:15→21:57)
[2018-05-03] MEDS: Levothyroxine 88 MCG Tablet PO (06:15)
[2018-05-03] MEDS: Pantoprazole Sodium 40 MG Tablet PO (06:15)
[2018-05-03 06:36] LABS: Bedside Glucose 161 mg/dL (70-110)
[2018-05-03] MEDS: Iron Polysaccharide Complex 150 MG CAPSULE PO (08:14)
[2018-05-03] MEDS: Ascorbic Acid 500 MG Tablet PO ×2 (08:16→16:40)
[2018-05-03 11:05] LABS: Bedside Glucose 209 mg/dL (70-110)
[2018-05-03 16:00] VITALS: BP 136/74; PULSE 81; RESP 18; TEMP 36.9; O2SAT 97
[2018-05-03 16:40] VITALS: PULSE 80
[2018-05-03 17:01] LABS: Bedside Glucose 212 mg/dL (70-110)
[2018-05-03 21:21] LABS: Bedside Glucose 211 mg/dL (70-110)
[2018-05-03] MEDS: MELATONIN 3 MG TABLET PO (21:57)
[2018-05-03] MEDS: Mirtazapine 15 MG Tablet 7.5 MG PO (21:57)
[2018-05-03] MEDS: LINAGLIPTIN 5 MG TABLET PO (21:57)
[2018-05-04 04:54] VITALS: PULSE 88
[2018-05-04] MEDS: Levothyroxine 88 MCG Tablet PO (04:54)
[2018-05-04] MEDS: Furosemide 40 MG Tablet PO (04:54)
[2018-05-04] MEDS: Febuxostat 40 MG TABLET 80 MG PO (04:54)
[2018-05-04] MEDS: Polyethylene Glycol 3350 17 GM PACKET PO (04:54)
[2018-05-04] MEDS: Senna/Docusate Sodium 1 Tablet PO ×2 (04:54→17:24)
[2018-05-04] MEDS: Digoxin 125 MCG Tablet PO (04:54)
[2018-05-04] MEDS: Pantoprazole Sodium 40 MG Tablet PO (04:54)
[2018-05-04] MEDS: METHENAMINE HIPPURATE 1 GM TABLET PO ×2 (04:54→17:25)
[2018-05-04 04:55] VITALS: BP 140/76; PULSE 88
[2018-05-04] MEDS: APIXABAN 5 MG TABLET PO ×2 (04:55→17:24)
[2018-05-04] MEDS: Nystatin Powder 15gm Bottle 1 APPLIC TOPICAL ×2 (04:55→20:47)
[2018-05-04] MEDS: Metoprolol Tartrate 25 MG Tablet PO ×2 (04:55→17:24)
[2018-05-04] MEDS: Menthol/Lanolin/Calamine/Znox 113 GM Tube 1 APPLIC TOPICAL ×2 (04:55→20:47)
[2018-05-04 06:41] LABS: Bedside Glucose 168 mg/dL (70-110)
[2018-05-04 06:45] VITALS: O2SAT 95
[2018-05-04] MEDS: Ascorbic Acid 500 MG Tablet PO ×2 (07:52→17:24)
[2018-05-04] MEDS: Iron Polysaccharide Complex 150 MG CAPSULE PO (07:52)
[2018-05-04 11:40] LABS: Bedside Glucose 298 mg/dL (70-110)
[2018-05-04 16:00] VITALS: BP 125/64; PULSE 74; RESP 18; TEMP 36.9; O2SAT 98
[2018-05-04 17:16] LABS: Bedside Glucose 249 mg/dL (70-110)
[2018-05-04 17:24] VITALS: BP 125/64; PULSE 74
[2018-05-04] MEDS: Mirtazapine 15 MG Tablet 7.5 MG PO (20:44)
[2018-05-04] MEDS: LINAGLIPTIN 5 MG TABLET PO (20:44)
[2018-05-04] MEDS: MELATONIN 3 MG TABLET PO (20:45)
[2018-05-04 20:53] VITALS: PULSE 76; O2SAT 97
[2018-05-04 21:31] LABS: Bedside Glucose 291 mg/dL (70-110)
[2018-05-05 05:29] VITALS: BP 129/74; PULSE 78
[2018-05-05] MEDS: Metoprolol Tartrate 25 MG Tablet PO ×2 (05:29→17:26)
[2018-05-05] MEDS: Levothyroxine 88 MCG Tablet PO (05:29)
[2018-05-05] MEDS: Pantoprazole Sodium 40 MG Tablet PO (05:29)
[2018-05-05] MEDS: Digoxin 125 MCG Tablet PO (05:29)
[2018-05-05] MEDS: METHENAMINE HIPPURATE 1 GM TABLET PO ×2 (05:30→17:26)
[2018-05-05] MEDS: Senna/Docusate Sodium 1 Tablet PO ×2 (05:30→17:26)
[2018-05-05] MEDS: Furosemide 40 MG Tablet PO (05:30)
[2018-05-05] MEDS: Nystatin Powder 15gm Bottle 1 APPLIC TOPICAL ×2 (05:30→21:36)
[2018-05-05] MEDS: Febuxostat 40 MG TABLET 80 MG PO (05:30)
[2018-05-05] MEDS: Menthol/Lanolin/Calamine/Znox 113 GM Tube 1 APPLIC TOPICAL ×2 (05:30→21:36)
[2018-05-05] MEDS: APIXABAN 5 MG TABLET PO ×2 (05:31→17:26)
[2018-05-05 06:26] LABS: Bedside Glucose 187 mg/dL (70-110)
[2018-05-05] MEDS: Iron Polysaccharide Complex 150 MG CAPSULE PO (08:10)
[2018-05-05] MEDS: Ascorbic Acid 500 MG Tablet PO ×2 (08:10→17:26)
[2018-05-05] MEDS: Acetaminophen 500 MG Tablet 1000 MG PO (08:11)
[2018-05-05 10:40] VITALS: PULSE 70; RESP 18; O2SAT 98
[2018-05-05 11:36] LABS: Bedside Glucose 225 mg/dL (70-110)
--- NOTE | 2018-05-05 11:57 | CASEMGMT ---
Plan of care meeting held with pt and pt son Richard present. Pt is receiving PT/OT/ST and progressing with therapy. No d/c date is set at this time. Pt plans to return to her home where she lives alone. Her son lives next door and does check on pt daily. Prior to hospitalization, pt was independent in her home. Pt made aware that insurance has approved through 05/07 and update will happen on that date. Pt also made aware continued stay not guaranteed. Will continue with treatment plan at this time. KD Huertas
[2018-05-05 16:00] VITALS: BP 134/71; PULSE 68; RESP 18; TEMP 36.3; O2SAT 92
[2018-05-05 17:01] LABS: Bedside Glucose 232 mg/dL (70-110)
[2018-05-05 17:26] VITALS: PULSE 68
[2018-05-05 21:01] LABS: Bedside Glucose 285 mg/dL (70-110)
[2018-05-05] MEDS: Mirtazapine 15 MG Tablet 7.5 MG PO (21:35)
[2018-05-05] MEDS: MELATONIN 3 MG TABLET PO (21:35)
[2018-05-05] MEDS: LINAGLIPTIN 5 MG TABLET PO (21:35)
[2018-05-06] VITALS (7 sets, daily range): BP systolic 119–135; BP diastolic 65; PULSE 69–73; RESP 18; TEMP 36.5; O2SAT 88–97
[2018-05-06] MEDS: Pantoprazole Sodium 40 MG Tablet PO (04:39)
[2018-05-06] MEDS: Levothyroxine 88 MCG Tablet PO (04:39)
[2018-05-06] MEDS: Menthol/Lanolin/Calamine/Znox 113 GM Tube 1 APPLIC TOPICAL ×2 (04:39→21:14)
[2018-05-06] MEDS: APIXABAN 5 MG TABLET PO ×2 (04:39→17:26)
[2018-05-06] MEDS: Febuxostat 40 MG TABLET 80 MG PO (04:39)
[2018-05-06] MEDS: METHENAMINE HIPPURATE 1 GM TABLET PO ×2 (04:39→17:26)
[2018-05-06] MEDS: Polyethylene Glycol 3350 17 GM PACKET PO (04:39)
[2018-05-06] MEDS: Furosemide 40 MG Tablet PO (04:39)
[2018-05-06] MEDS: Senna/Docusate Sodium 1 Tablet PO (04:39)
[2018-05-06] MEDS: Nystatin Powder 15gm Bottle 1 APPLIC TOPICAL ×2 (04:40→21:15)
[2018-05-06] MEDS: Digoxin 125 MCG Tablet PO (04:40)
[2018-05-06] MEDS: Metoprolol Tartrate 25 MG Tablet PO ×2 (04:44→17:26)
[2018-05-06 06:45] LABS: Bedside Glucose 191 mg/dL (70-110)
--- NOTE | 2018-05-06 07:03 | NURSING ---
Pt's SPO2 88 on room air during HS, placed on 1L NC SPO2 increased 91%
[2018-05-06] MEDS: Ascorbic Acid 500 MG Tablet PO ×2 (09:30→17:26)
[2018-05-06] MEDS: Iron Polysaccharide Complex 150 MG CAPSULE PO (09:31)
[2018-05-06 11:11] LABS: Bedside Glucose 262 mg/dL (70-110)
--- NOTE | 2018-05-06 13:55 | MDS.RN ---
Pain interview for dinh 04/09/18 completed.
[2018-05-06 16:50] LABS: Bedside Glucose 264 mg/dL (70-110)
[2018-05-06] MEDS: MELATONIN 3 MG TABLET PO (21:15)
[2018-05-06] MEDS: Mirtazapine 15 MG Tablet 7.5 MG PO (21:15)
[2018-05-06] MEDS: LINAGLIPTIN 5 MG TABLET PO (21:15)
[2018-05-06 21:45] LABS: Bedside Glucose 337 mg/dL (70-110)
--- NOTE | 2018-05-06 22:12 | NURSING ---
Pt's blood sugar [address] Jaffe aware. N.O. for x1 dose 5 units of Humalog now, and make Lantus 10 units BID.
[2018-05-06] MEDS: Insulin Lispro 100 UNIT/ML INSULN.PEN SC (22:17)
[2018-05-07] MEDS: Menthol/Lanolin/Calamine/Znox 113 GM Tube 1 APPLIC TOPICAL ×2 (05:42→21:20)
[2018-05-07 05:44] VITALS: BP 131/67; PULSE 79
[2018-05-07] MEDS: Furosemide 40 MG Tablet PO (05:44)
[2018-05-07] MEDS: Levothyroxine 88 MCG Tablet PO (05:44)
[2018-05-07] MEDS: METHENAMINE HIPPURATE 1 GM TABLET PO ×2 (05:44→17:12)
[2018-05-07] MEDS: APIXABAN 5 MG TABLET PO ×2 (05:44→17:12)
[2018-05-07] MEDS: Nystatin Powder 15gm Bottle 1 APPLIC TOPICAL ×2 (05:44→21:21)
[2018-05-07] MEDS: Pantoprazole Sodium 40 MG Tablet PO (05:44)
[2018-05-07] MEDS: Metoprolol Tartrate 25 MG Tablet PO ×2 (05:44→17:12)
[2018-05-07] MEDS: Febuxostat 40 MG TABLET 80 MG PO (05:44)
[2018-05-07 05:45] VITALS: BP 131/67; PULSE 79
[2018-05-07] MEDS: Digoxin 125 MCG Tablet PO (05:45)
[2018-05-07 06:51] LABS: Bedside Glucose 151 mg/dL (70-110)
[2018-05-07 07:46] VITALS: O2SAT 92
[2018-05-07] MEDS: Iron Polysaccharide Complex 150 MG CAPSULE PO (07:47)
[2018-05-07] MEDS: Ascorbic Acid 500 MG Tablet PO ×2 (07:47→17:12)
--- NOTE | 2018-05-07 10:00 | CASEMGMT ---
Insurance: Continued stay review faxed. Auth # [id number] JANEEN Maguire
[2018-05-07 11:26] LABS: Bedside Glucose 183 mg/dL (70-110)
--- NOTE | 2018-05-07 11:38 | CASEMGMT ---
Addendum entered by Roxie Graf 05/07/18 15:40: Reviewed SW student documentation. JANEEN Maguire Original Note: Brief interview for mental status (BIMS) and mood (PHQ-9) completed on this day. BIMS score 12/31. PHQ-9 score 05/12. Eduar Lopez social work student
--- NOTE | 2018-05-07 13:13 | CASEMGMT ---
Insurance Continued stay approved with update due 05/12. Pt made aware and phone call pt to pt son Wolf. left requesting return call to give information. Auth # [id number] KD Huertas
[2018-05-07 16:00] VITALS: BP 124/61; PULSE 73; RESP 18; TEMP 36.2; O2SAT 96
[2018-05-07 16:56] LABS: Bedside Glucose 189 mg/dL (70-110)
[2018-05-07 17:12] VITALS: BP 124/61; PULSE 73
[2018-05-07] MEDS: MELATONIN 3 MG TABLET PO (21:21)
[2018-05-07] MEDS: Mirtazapine 15 MG Tablet 7.5 MG PO (21:22)
[2018-05-07] MEDS: LINAGLIPTIN 5 MG TABLET PO (21:22)
[2018-05-07] MEDS: Acetaminophen 500 MG Tablet 1000 MG PO (21:25)
[2018-05-07 21:30] VITALS: PULSE 78; O2SAT 97
[2018-05-07 21:56] LABS: Bedside Glucose 243 mg/dL (70-110)
[2018-05-08] MEDS: Menthol/Lanolin/Calamine/Znox 113 GM Tube 1 APPLIC TOPICAL ×2 (05:32→19:51)
[2018-05-08 05:39] VITALS: BP 129/74; PULSE 72
[2018-05-08] MEDS: APIXABAN 5 MG TABLET PO ×2 (05:39→17:03)
[2018-05-08] MEDS: Metoprolol Tartrate 25 MG Tablet PO ×2 (05:39→17:03)
[2018-05-08] MEDS: Digoxin 125 MCG Tablet PO (05:39)
[2018-05-08] MEDS: Nystatin Powder 15gm Bottle 1 APPLIC TOPICAL ×2 (05:39→19:51)
[2018-05-08] MEDS: METHENAMINE HIPPURATE 1 GM TABLET PO ×2 (05:39→17:03)
[2018-05-08] MEDS: Furosemide 40 MG Tablet PO (05:39)
[2018-05-08] MEDS: Pantoprazole Sodium 40 MG Tablet PO (05:40)
[2018-05-08] MEDS: Febuxostat 40 MG TABLET 80 MG PO (05:40)
[2018-05-08] MEDS: Levothyroxine 88 MCG Tablet PO (05:40)
[2018-05-08 06:35] LABS: Bedside Glucose 191 mg/dL (70-110)
[2018-05-08 06:59] LABS: Absolute Lymphocyte Count 1.92 X10^3/ul (0.83-4.51); Absolute Neutrophil Count 4.8 X10^3/uL (2.0-7.7); Basophil# 0.02 X10^3/uL; Basophil% 0.2 % (0-1); Eosinophil# 0.18 X10^3/uL; Eosinophils% 2.2 % (0-5); Hematocrit 44.1 % (37-47); Hemoglobin 14.1 g/dl (12.0-15.0); Lymphocyte # 1.92 X10^3/ul (4.0); Lymphocyte % 23.6 % (19-41); Mean Corpuscular Volume 87.5 fL (81-99); Mean Platelet Vol. 10.3 fl (6.2-12.0); Monocyte# 1.13 X10^3/uL; Monocyte% 13.9 % (0-10); Neutrophil # 4.83 X10^3/uL (2.7-7.7); Neutrophil % 59.2 % (47-70); Platelet Count 206 K/mm3 (150-450); RBC Distribution Width CV 14.6 % (11.6-14.6); RBC Distribution Width SD 46.7 fl (35.1-43.9); Red Blood Count 5.04 M/mm3 (4.2-5.4); White Blood Count 8.2 K/mm3 (4.4-11.0)
[2018-05-08 07:06] VITALS: O2SAT 97
[2018-05-08 07:09] LABS: Anion Gap 7 (5-15); BUN 38 mg/dL (7-18); BUN/Creat Ratio 39.3 RATIO (10-20); Calcium,Total 9.1 mg/dL (8.5-10.1); Chloride 100 mmol/L (98-107); Creatinine, Serum 0.97 mg/dL (0.55-1.02); EST Glomerular Filtration Rate 59 mL/min (>60); Est Glom Filt Rate - Afr Amer 71 mL/min (>60); Estimated Creatinine Clearance 41.14 ml/min; Glucose 178 mg/dL (74-106); Potassium 4.3 mmol/L (3.5-5.1); Sodium Level 137 mmol/L (136-145)
[2018-05-08 07:10] VITALS: O2SAT 93
[2018-05-08 07:39] LABS: POSITIVE COUNT NO; POSITIVE DIFFERENTIAL NO; POSITIVE MORPHOLOGY NO
[2018-05-08] MEDS: Iron Polysaccharide Complex 150 MG CAPSULE PO (08:27)
[2018-05-08] MEDS: Ascorbic Acid 500 MG Tablet PO ×2 (08:27→17:02)
[2018-05-08 10:36] VITALS: PULSE 67; RESP 16; O2SAT 95
[2018-05-08] MEDS: Tuberculin,Purif.prot.deriv. 50 TU/ML Vial 5 ML ID (10:45)
[2018-05-08 11:31] LABS: Bedside Glucose 177 mg/dL (70-110)
[2018-05-08 15:29] VITALS: BP 127/66; PULSE 75; RESP 16; TEMP 36.6; O2SAT 94
[2018-05-08 17:00] LABS: Bedside Glucose 207 mg/dL (70-110)
[2018-05-08 17:03] VITALS: PULSE 75
[2018-05-08] MEDS: Mirtazapine 15 MG Tablet 7.5 MG PO (19:50)
[2018-05-08] MEDS: LINAGLIPTIN 5 MG TABLET PO (19:51)
[2018-05-08] MEDS: MELATONIN 3 MG TABLET PO (19:51)
[2018-05-08 21:10] LABS: Bedside Glucose 233 mg/dL (70-110)
[2018-05-09 04:45] VITALS: BP 143/78; PULSE 70
[2018-05-09] MEDS: Furosemide 40 MG Tablet PO (04:45)
[2018-05-09] MEDS: Febuxostat 40 MG TABLET 80 MG PO (04:45)
[2018-05-09] MEDS: Pantoprazole Sodium 40 MG Tablet PO (04:45)
[2018-05-09] MEDS: METHENAMINE HIPPURATE 1 GM TABLET PO ×2 (04:45→17:51)
[2018-05-09] MEDS: Metoprolol Tartrate 25 MG Tablet PO ×2 (04:45→17:51)
[2018-05-09] MEDS: Levothyroxine 88 MCG Tablet PO (04:45)
[2018-05-09] MEDS: Digoxin 125 MCG Tablet PO (04:45)
[2018-05-09] MEDS: Nystatin Powder 15gm Bottle 1 APPLIC TOPICAL ×2 (04:46→19:30)
[2018-05-09] MEDS: Menthol/Lanolin/Calamine/Znox 113 GM Tube 1 APPLIC TOPICAL ×2 (04:46→19:29)
[2018-05-09] MEDS: APIXABAN 5 MG TABLET PO ×2 (04:46→17:51)
[2018-05-09] MEDS: Cholestyramine/Sucrose 4 GM/PACKET PO (06:12)
[2018-05-09 06:30] LABS: Bedside Glucose 165 mg/dL (70-110)
[2018-05-09 06:46] VITALS: O2SAT 92
[2018-05-09] MEDS: Iron Polysaccharide Complex 150 MG CAPSULE PO (10:31)
[2018-05-09] MEDS: Ascorbic Acid 500 MG Tablet PO ×2 (10:31→17:50)
--- NOTE | 2018-05-09 11:09 | RAD_ITS ---
STUDY: X-RAY CHEST REASON FOR EXAM: Female, 83 years old. Cough, shortness of breath TECHNIQUE: Frontal and lateral views of the chest were obtained. COMPARISON: April 30, 2018 FINDINGS: Lines and tubes: None. Lungs: Hyperinflated. Increased interstitial markings throughout the lungs without focal airspace opacities. Pleura: No demonstrated abnormality. Mediastinum/becky: Unremarkable. Cardiovascular: Normal size cardiac silhouette. Prominence of the pulmonary hilar arteries without peripheral pulmonary vascular congestion, suggesting pulmonary hypertension. Atherosclerotic calcifications in the thoracic aorta. A pacing device is again seen in the left chest. Soft tissues: Unremarkable. Bones: Degenerative changes in spine and shoulders. There is stable marked compression of a mid thoracic vertebral body. Upper abdomen: No demonstrated abnormality. RAD/Chest PA and Lateral IMPRESSION: No acute cardiopulmonary abnormalities or changes. Improved vascular congestion compared to the prior study. Stable COPD with diffuse fibrosis. Electronically Signed: Krys Lomas MD at 14:16 EDT , Service support ,
[2018-05-09 11:35] LABS: Bedside Glucose 218 mg/dL (70-110)
--- NOTE | 2018-05-09 11:48 | NURSING ---
Addendum entered by Queenie Duron 05/09/18 14:28: CXR negative for inflitrates. Original Note: gas fitter helper reported pt had crackles to bilat bases, clear this AM, pt w/dry intermittent cought. Dr Jaffe updated. new order for chest xray.
[2018-05-09 15:12] VITALS: BP 126/65; PULSE 76; RESP 16; TEMP 36.7; O2SAT 95
[2018-05-09 16:56] LABS: Bedside Glucose 171 mg/dL (70-110)
[2018-05-09 17:51] VITALS: BP 123/65; PULSE 76
[2018-05-09] MEDS: Mirtazapine 15 MG Tablet 7.5 MG PO (19:29)
[2018-05-09] MEDS: LINAGLIPTIN 5 MG TABLET PO (19:29)
[2018-05-09] MEDS: MELATONIN 3 MG TABLET PO (19:29)
[2018-05-09 21:06] LABS: Bedside Glucose 210 mg/dL (70-110)
[2018-05-10] MEDS: METHENAMINE HIPPURATE 1 GM TABLET PO ×2 (04:43→17:31)
[2018-05-10] MEDS: Levothyroxine 88 MCG Tablet PO (04:44)
[2018-05-10] MEDS: Nystatin Powder 15gm Bottle 1 APPLIC TOPICAL ×2 (04:44→22:07)
[2018-05-10] MEDS: APIXABAN 5 MG TABLET PO ×2 (04:44→17:31)
[2018-05-10] MEDS: Furosemide 40 MG Tablet PO (04:44)
[2018-05-10] MEDS: Febuxostat 40 MG TABLET 80 MG PO (04:44)
[2018-05-10] MEDS: Menthol/Lanolin/Calamine/Znox 113 GM Tube 1 APPLIC TOPICAL ×2 (04:44→22:09)
[2018-05-10 04:45] VITALS: BP 131/74; PULSE 76
[2018-05-10] MEDS: Pantoprazole Sodium 40 MG Tablet PO (04:45)
[2018-05-10] MEDS: Digoxin 125 MCG Tablet PO (04:45)
[2018-05-10] MEDS: Metoprolol Tartrate 25 MG Tablet PO ×2 (04:45→17:31)
[2018-05-10] MEDS: Cholestyramine/Sucrose 4 GM/PACKET PO (05:53)
[2018-05-10 06:01] LABS: Bedside Glucose 148 mg/dL (70-110)
[2018-05-10 06:26] LABS: Bedside Glucose 126 mg/dL (70-110)
[2018-05-10 07:00] VITALS: O2SAT 92
[2018-05-10] MEDS: Ascorbic Acid 500 MG Tablet PO ×2 (07:50→17:31)
[2018-05-10] MEDS: Iron Polysaccharide Complex 150 MG CAPSULE PO (07:50)
[2018-05-10 11:15] VITALS: PULSE 74; RESP 18; O2SAT 95
[2018-05-10 11:31] LABS: Bedside Glucose 229 mg/dL (70-110)
[2018-05-10 15:40] VITALS: BP 116/63; PULSE 76; RESP 20; TEMP 35.9; O2SAT 92
[2018-05-10 16:46] LABS: Bedside Glucose 183 mg/dL (70-110)
[2018-05-10 17:31] VITALS: BP 116/63; PULSE 76
[2018-05-10] MEDS: Senna/Docusate Sodium 1 Tablet PO (17:32)
[2018-05-10 21:06] LABS: Bedside Glucose 224 mg/dL (70-110)
[2018-05-10] MEDS: Mirtazapine 15 MG Tablet 7.5 MG PO (22:14)
[2018-05-10] MEDS: LINAGLIPTIN 5 MG TABLET PO (22:14)
[2018-05-10] MEDS: MELATONIN 3 MG TABLET PO (22:14)
[2018-05-11] MEDS: Febuxostat 40 MG TABLET 80 MG PO (05:57)
[2018-05-11] MEDS: Levothyroxine 88 MCG Tablet PO (05:57)
[2018-05-11] MEDS: Pantoprazole Sodium 40 MG Tablet PO (05:57)
[2018-05-11 05:58] VITALS: BP 135/60; PULSE 68
[2018-05-11] MEDS: Furosemide 40 MG Tablet PO (05:58)
[2018-05-11] MEDS: APIXABAN 5 MG TABLET PO ×2 (05:58→16:59)
[2018-05-11] MEDS: Digoxin 125 MCG Tablet PO (05:58)
[2018-05-11 06:03] VITALS: BP 135/60; PULSE 68
[2018-05-11] MEDS: METHENAMINE HIPPURATE 1 GM TABLET PO ×2 (06:03→16:59)
[2018-05-11] MEDS: Metoprolol Tartrate 25 MG Tablet PO ×2 (06:03→16:59)
[2018-05-11] MEDS: Cholestyramine/Sucrose 4 GM/PACKET PO (06:05)
[2018-05-11] MEDS: Nystatin Powder 15gm Bottle 1 APPLIC TOPICAL ×2 (06:05→21:53)
[2018-05-11] MEDS: Menthol/Lanolin/Calamine/Znox 113 GM Tube 1 APPLIC TOPICAL ×2 (06:06→21:53)
[2018-05-11] MEDS: Acetaminophen 500 MG Tablet 1000 MG PO (06:12)
[2018-05-11 06:35] LABS: Bedside Glucose 119 mg/dL (70-110)
--- NOTE | 2018-05-11 07:00 | MDS.RN ---
Information for the mds was obtained from review of the clinical record, interview of resident, staff, and direct observation of resident's care.
[2018-05-11] MEDS: Bisacodyl 5 MG Tablet 10 MG PO (07:48)
[2018-05-11] MEDS: Ascorbic Acid 500 MG Tablet PO ×2 (07:50→16:59)
[2018-05-11] MEDS: Iron Polysaccharide Complex 150 MG CAPSULE PO (07:51)
--- NOTE | 2018-05-11 09:00 | NURSING ---
Patient having constipation, Dr. Jaffe notified, order to change questran to PRN.
[2018-05-11 11:11] LABS: Bedside Glucose 127 mg/dL (70-110)
[2018-05-11 12:30] VITALS: PULSE 72; RESP 18; O2SAT 97
[2018-05-11 15:52] VITALS: BP 136/64; PULSE 72; RESP 20; TEMP 35.9; O2SAT 96
[2018-05-11 16:59] VITALS: BP 136/64; PULSE 72
[2018-05-11] MEDS: Senna/Docusate Sodium 1 Tablet PO (16:59)
[2018-05-11 17:01] LABS: Bedside Glucose 147 mg/dL (70-110)
[2018-05-11 21:26] LABS: Bedside Glucose 193 mg/dL (70-110)
[2018-05-11] MEDS: MELATONIN 3 MG TABLET PO (21:53)
[2018-05-11] MEDS: LINAGLIPTIN 5 MG TABLET PO (21:53)
[2018-05-11] MEDS: Mirtazapine 15 MG Tablet 7.5 MG PO (21:55)
[2018-05-12] MEDS: APIXABAN 5 MG TABLET PO ×2 (05:11→16:58)
[2018-05-12] MEDS: Menthol/Lanolin/Calamine/Znox 113 GM Tube 1 APPLIC TOPICAL ×2 (05:12→20:51)
[2018-05-12] MEDS: Senna/Docusate Sodium 1 Tablet PO ×2 (05:12→16:58)
[2018-05-12] MEDS: Levothyroxine 88 MCG Tablet PO (05:12)
[2018-05-12] MEDS: Polyethylene Glycol 3350 17 GM PACKET PO (05:12)
[2018-05-12] MEDS: Furosemide 40 MG Tablet PO (05:12)
[2018-05-12] MEDS: METHENAMINE HIPPURATE 1 GM TABLET PO ×2 (05:12→16:58)
[2018-05-12] MEDS: Nystatin Powder 15gm Bottle 1 APPLIC TOPICAL ×2 (05:12→20:52)
[2018-05-12] MEDS: Febuxostat 40 MG TABLET 80 MG PO (05:12)
[2018-05-12] MEDS: Pantoprazole Sodium 40 MG Tablet PO (05:12)
[2018-05-12 05:16] VITALS: PULSE 78
[2018-05-12] MEDS: Digoxin 125 MCG Tablet PO (05:16)
[2018-05-12 05:17] VITALS: BP 122/67; PULSE 78
[2018-05-12] MEDS: Metoprolol Tartrate 25 MG Tablet PO ×2 (05:17→16:58)
[2018-05-12] MEDS: Acetaminophen 500 MG Tablet 1000 MG PO (05:27)
[2018-05-12 06:30] LABS: Bedside Glucose 138 mg/dL (70-110)
[2018-05-12] MEDS: Ascorbic Acid 500 MG Tablet PO ×2 (08:20→16:59)
[2018-05-12] MEDS: Iron Polysaccharide Complex 150 MG CAPSULE PO (08:20)
--- NOTE | 2018-05-12 11:17 | CASEMGMT ---
Insurance Clinical updates faxed. Will await continued stay determination. Auth # [id number] KD Huertas
[2018-05-12 11:36] LABS: Bedside Glucose 178 mg/dL (70-110)
--- NOTE | 2018-05-12 13:56 | CASEMGMT ---
Insurance Continued stay approved with update due 05/17 with LCD issued at that time. AUth # [id number] KD Huertas
--- NOTE | 2018-05-12 13:58 | CASEMGMT ---
Social Work Phone call to pt son Wolf and explained continued stay has been approved by insurance however insurance is stating last covered day will be issued on 05/17/18. SW inquiring with Wolf of discharge plan as he and brother have discussed pt return home vs. [place]. Wolf states he will speak with pt and brother and let SW know of d/c plan. KD Huertas
[2018-05-12 15:38] VITALS: BP 126/69; PULSE 79; RESP 18; TEMP 35.9; O2SAT 95
[2018-05-12 16:58] VITALS: PULSE 79
[2018-05-12 17:06] LABS: Bedside Glucose 178 mg/dL (70-110)
[2018-05-12 20:46] LABS: Bedside Glucose 180 mg/dL (70-110)
[2018-05-12] MEDS: MELATONIN 3 MG TABLET PO (20:50)
[2018-05-12] MEDS: LINAGLIPTIN 5 MG TABLET PO (20:50)
[2018-05-12] MEDS: Mirtazapine 15 MG Tablet 7.5 MG PO (20:50)
[2018-05-13] MEDS: Acetaminophen 500 MG Tablet 1000 MG PO (01:25)
[2018-05-13] MEDS: Polyethylene Glycol 3350 17 GM PACKET PO (05:16)
[2018-05-13] MEDS: Levothyroxine 88 MCG Tablet PO (05:21)
[2018-05-13] MEDS: Febuxostat 40 MG TABLET 80 MG PO (05:21)
[2018-05-13] MEDS: METHENAMINE HIPPURATE 1 GM TABLET PO ×2 (05:21→17:29)
[2018-05-13] MEDS: APIXABAN 5 MG TABLET PO ×2 (05:21→17:29)
[2018-05-13] MEDS: Furosemide 40 MG Tablet PO (05:21)
[2018-05-13] MEDS: Senna/Docusate Sodium 1 Tablet PO ×2 (05:21→17:28)
[2018-05-13] MEDS: Pantoprazole Sodium 40 MG Tablet PO (05:21)
[2018-05-13] MEDS: Menthol/Lanolin/Calamine/Znox 113 GM Tube 1 APPLIC TOPICAL ×2 (05:21→20:44)
[2018-05-13 05:22] VITALS: BP 136/60; PULSE 70
[2018-05-13] MEDS: Nystatin Powder 15gm Bottle 1 APPLIC TOPICAL ×2 (05:22→20:45)
[2018-05-13] MEDS: Digoxin 125 MCG Tablet PO (05:22)
[2018-05-13] MEDS: Metoprolol Tartrate 25 MG Tablet PO ×2 (05:22→17:28)
[2018-05-13 06:41] LABS: Bedside Glucose 120 mg/dL (70-110)
[2018-05-13] MEDS: Iron Polysaccharide Complex 150 MG CAPSULE PO (07:47)
[2018-05-13] MEDS: Ascorbic Acid 500 MG Tablet PO ×2 (07:47→17:29)
[2018-05-13 09:26] VITALS: O2SAT 93
[2018-05-13 11:31] LABS: Bedside Glucose 187 mg/dL (70-110)
[2018-05-13 15:44] VITALS: BP 143/62; PULSE 79; RESP 16; TEMP 36.1; O2SAT 93
[2018-05-13 17:05] LABS: Bedside Glucose 189 mg/dL (70-110)
[2018-05-13 17:28] VITALS: BP 143/62; PULSE 79
[2018-05-13] MEDS: MELATONIN 3 MG TABLET PO (20:44)
[2018-05-13] MEDS: Mirtazapine 15 MG Tablet 7.5 MG PO (20:44)
[2018-05-13] MEDS: LINAGLIPTIN 5 MG TABLET PO (20:45)
[2018-05-13 21:45] LABS: Bedside Glucose 220 mg/dL (70-110)
[2018-05-14] MEDS: Levothyroxine 88 MCG Tablet PO (05:18)
[2018-05-14] MEDS: METHENAMINE HIPPURATE 1 GM TABLET PO ×2 (05:18→17:42)
[2018-05-14] MEDS: Senna/Docusate Sodium 1 Tablet PO (05:18)
[2018-05-14] MEDS: APIXABAN 5 MG TABLET PO ×2 (05:18→17:42)
[2018-05-14] MEDS: Pantoprazole Sodium 40 MG Tablet PO (05:18)
[2018-05-14] MEDS: Furosemide 40 MG Tablet PO (05:18)
[2018-05-14] MEDS: Menthol/Lanolin/Calamine/Znox 113 GM Tube 1 APPLIC TOPICAL ×2 (05:18→20:27)
[2018-05-14] MEDS: Polyethylene Glycol 3350 17 GM PACKET PO (05:18)
[2018-05-14] MEDS: Febuxostat 40 MG TABLET 80 MG PO (05:18)
[2018-05-14 05:19] VITALS: PULSE 70
[2018-05-14] MEDS: Nystatin Powder 15gm Bottle 1 APPLIC TOPICAL ×2 (05:19→20:27)
[2018-05-14] MEDS: Digoxin 125 MCG Tablet PO (05:19)
[2018-05-14 05:23] VITALS: BP 131/64; PULSE 70
[2018-05-14] MEDS: Metoprolol Tartrate 25 MG Tablet PO ×2 (05:23→17:41)
[2018-05-14 06:45] LABS: Bedside Glucose 166 mg/dL (70-110)
[2018-05-14] MEDS: Iron Polysaccharide Complex 150 MG CAPSULE PO (08:47)
[2018-05-14] MEDS: Ascorbic Acid 500 MG Tablet PO ×2 (08:47→17:42)
[2018-05-14] MEDS: Acetaminophen 500 MG Tablet 1000 MG PO (08:49)
[2018-05-14 09:44] VITALS: PULSE 73; O2SAT 94
[2018-05-14 11:25] LABS: Bedside Glucose 181 mg/dL (70-110)
[2018-05-14 15:57] VITALS: BP 132/60; PULSE 74; RESP 18; TEMP 35.8; O2SAT 93
[2018-05-14 17:15] LABS: Bedside Glucose 178 mg/dL (70-110)
[2018-05-14 17:41] VITALS: BP 132/60; PULSE 74
[2018-05-14] MEDS: MELATONIN 3 MG TABLET PO (20:29)
[2018-05-14] MEDS: Mirtazapine 15 MG Tablet 7.5 MG PO (20:29)
[2018-05-14] MEDS: LINAGLIPTIN 5 MG TABLET PO (20:30)
[2018-05-14 21:05] LABS: Bedside Glucose 228 mg/dL (70-110)
--- NOTE | 2018-05-14 22:07 | NURSING ---
Addendum entered by Queenie Duron 05/17/18 10:49: CXR negative, lungs clear Original Note: Addendum entered by Queenie Duron 05/17/18 09:24: Dr Jaffe updated this AM, new order for chest xray Original Note: Pt's pulse ox checked at this time- 83% on RA. O2 applied at 1L, pulse ox ^ to 93%. Will continue to monitor.
[2018-05-15] MEDS: APIXABAN 5 MG TABLET PO ×2 (05:43→17:11)
[2018-05-15] MEDS: METHENAMINE HIPPURATE 1 GM TABLET PO ×2 (05:43→17:10)
[2018-05-15] MEDS: Furosemide 40 MG Tablet PO (05:43)
[2018-05-15] MEDS: Menthol/Lanolin/Calamine/Znox 113 GM Tube 1 APPLIC TOPICAL ×2 (05:43→21:58)
[2018-05-15 05:44] VITALS: BP 130/67; PULSE 67
[2018-05-15] MEDS: Metoprolol Tartrate 25 MG Tablet PO ×2 (05:44→17:11)
[2018-05-15] MEDS: Nystatin Powder 15gm Bottle 1 APPLIC TOPICAL ×2 (05:44→21:59)
[2018-05-15] MEDS: Pantoprazole Sodium 40 MG Tablet PO (05:44)
[2018-05-15] MEDS: Febuxostat 40 MG TABLET 80 MG PO (05:44)
[2018-05-15] MEDS: Levothyroxine 88 MCG Tablet PO (05:44)
[2018-05-15] MEDS: Senna/Docusate Sodium 1 Tablet PO (05:44)
[2018-05-15 05:45] VITALS: BP 130/67; PULSE 67
[2018-05-15] MEDS: Digoxin 125 MCG Tablet PO (05:45)
[2018-05-15 06:50] LABS: Bedside Glucose 136 mg/dL (70-110)
[2018-05-15 06:51] LABS: Absolute Lymphocyte Count 1.37 X10^3/ul (0.83-4.51); Absolute Neutrophil Count 4.3 X10^3/uL (2.0-7.7); Basophil# 0.03 X10^3/uL; Basophil% 0.5 % (0-1); Eosinophil# 0.13 X10^3/uL; Hemoglobin 13.5 g/dl (12.0-15.0); Lymphocyte # 1.37 X10^3/ul (4.0); Lymphocyte % 21.3 % (19-41); Mean Corp Hgb Conc 32.1 g/gl (32-36); Mean Corpuscular Hgb 27.9 pg (27.0-32.0); Mean Corpuscular Volume 86.8 fL (81-99); Mean Platelet Vol. 10.3 fl (6.2-12.0); Monocyte# 0.61 X10^3/uL; Monocyte% 9.5 % (0-10); Neutrophil # 4.28 X10^3/uL (2.7-7.7); Neutrophil % 66.4 % (47-70); Platelet Count 173 K/mm3 (150-450); RBC Distribution Width CV 14.3 % (11.6-14.6); RBC Distribution Width SD 45.1 fl (35.1-43.9); Red Blood Count 4.84 M/mm3 (4.2-5.4); White Blood Count 6.4 K/mm3 (4.4-11.0)
[2018-05-15 06:52] LABS: POSITIVE COUNT NO; POSITIVE DIFFERENTIAL NO; POSITIVE MORPHOLOGY NO
[2018-05-15 07:14] LABS: Anion Gap 0 (5-15); BUN 29 mg/dL (7-18); BUN/Creat Ratio 38.1 RATIO (10-20); Calcium,Total 8.9 mg/dL (8.5-10.1); Chloride 104 mmol/L (98-107); Creatinine, Serum 0.76 mg/dL (0.55-1.02); EST Glomerular Filtration Rate 77 mL/min (>60); Est Glom Filt Rate - Afr Amer 93 mL/min (>60); Glucose 144 mg/dL (74-106); Potassium 4.4 mmol/L (3.5-5.1); Sodium Level 137 mmol/L (136-145)
[2018-05-15] MEDS: Ascorbic Acid 500 MG Tablet PO ×2 (08:22→17:10)
[2018-05-15] MEDS: Iron Polysaccharide Complex 150 MG CAPSULE PO (08:22)
[2018-05-15 11:20] LABS: Bedside Glucose 152 mg/dL (70-110)
[2018-05-15 15:50] VITALS: BP 143/69; PULSE 76; RESP 18; TEMP 37; O2SAT 96
[2018-05-15 17:11] VITALS: BP 143/69; PULSE 76
[2018-05-15 17:11] LABS: Bedside Glucose 165 mg/dL (70-110)
[2018-05-15 21:36] LABS: Bedside Glucose 217 mg/dL (70-110)
[2018-05-15] MEDS: Mirtazapine 15 MG Tablet 7.5 MG PO (21:56)
[2018-05-15] MEDS: MELATONIN 3 MG TABLET PO (21:56)
[2018-05-15] MEDS: LINAGLIPTIN 5 MG TABLET PO (21:56)
[2018-05-15 22:05] VITALS: O2SAT 93
[2018-05-16] MEDS: Acetaminophen 500 MG Tablet 1000 MG PO (06:36)
[2018-05-16] MEDS: Furosemide 40 MG Tablet PO (06:42)
[2018-05-16] MEDS: METHENAMINE HIPPURATE 1 GM TABLET PO ×2 (06:42→16:58)
[2018-05-16] MEDS: Levothyroxine 88 MCG Tablet PO (06:42)
[2018-05-16] MEDS: Febuxostat 40 MG TABLET 80 MG PO (06:42)
[2018-05-16] MEDS: APIXABAN 5 MG TABLET PO ×2 (06:42→16:59)
[2018-05-16] MEDS: Pantoprazole Sodium 40 MG Tablet PO (06:42)
[2018-05-16 06:43] VITALS: BP 136/77; PULSE 74
[2018-05-16] MEDS: Menthol/Lanolin/Calamine/Znox 113 GM Tube 1 APPLIC TOPICAL ×2 (06:43→20:14)
[2018-05-16] MEDS: Nystatin Powder 15gm Bottle 1 APPLIC TOPICAL ×2 (06:43→20:14)
[2018-05-16] MEDS: Metoprolol Tartrate 25 MG Tablet PO ×2 (06:43→16:59)
[2018-05-16] MEDS: Digoxin 125 MCG Tablet PO (06:43)
[2018-05-16 06:50] LABS: Bedside Glucose 113 mg/dL (70-110)
[2018-05-16] MEDS: Ascorbic Acid 500 MG Tablet PO ×2 (07:58→16:59)
[2018-05-16] MEDS: Iron Polysaccharide Complex 150 MG CAPSULE PO (07:59)
[2018-05-16 11:16] LABS: Bedside Glucose 183 mg/dL (70-110)
[2018-05-16 15:43] VITALS: BP 114/63; PULSE 74; RESP 18; TEMP 36.8; O2SAT 94
[2018-05-16 16:59] VITALS: BP 114/63; PULSE 74
[2018-05-16 17:00] LABS: Bedside Glucose 160 mg/dL (70-110)
[2018-05-16] MEDS: Mirtazapine 15 MG Tablet 7.5 MG PO (20:14)
[2018-05-16] MEDS: LINAGLIPTIN 5 MG TABLET PO (20:14)
[2018-05-16] MEDS: MELATONIN 3 MG TABLET PO (20:14)
[2018-05-16 20:50] LABS: Bedside Glucose 242 mg/dL (70-110)
[2018-05-16 21:25] LABS: Bedside Glucose 221 mg/dL (70-110)
[2018-05-17] MEDS: Senna/Docusate Sodium 1 Tablet PO (05:09)
[2018-05-17] MEDS: Menthol/Lanolin/Calamine/Znox 113 GM Tube 1 APPLIC TOPICAL ×2 (05:09→20:11)
[2018-05-17] MEDS: Febuxostat 40 MG TABLET 80 MG PO (05:09)
[2018-05-17] MEDS: METHENAMINE HIPPURATE 1 GM TABLET PO ×2 (05:09→17:01)
[2018-05-17] MEDS: APIXABAN 5 MG TABLET PO ×2 (05:09→17:01)
[2018-05-17] MEDS: Nystatin Powder 15gm Bottle 1 APPLIC TOPICAL ×2 (05:09→20:11)
[2018-05-17] MEDS: Furosemide 40 MG Tablet PO (05:09)
[2018-05-17] MEDS: Levothyroxine 88 MCG Tablet PO (05:09)
[2018-05-17] MEDS: Pantoprazole Sodium 40 MG Tablet PO (05:09)
[2018-05-17 05:10] VITALS: BP 141/60; PULSE 65
[2018-05-17] MEDS: Digoxin 125 MCG Tablet PO (05:10)
[2018-05-17] MEDS: Metoprolol Tartrate 25 MG Tablet PO ×2 (05:10→17:01)
[2018-05-17 06:46] LABS: Bedside Glucose 159 mg/dL (70-110)
[2018-05-17] MEDS: Cholestyramine/Sucrose 4 GM/PACKET PO (08:42)
--- NOTE | 2018-05-17 09:22 | NURSING ---
Pt had large loose incontinent episode this Am, Pt given Questran by this nurse. 8 am medications will be given at a later time due to Questran. Queenie HAMMER aware
--- NOTE | 2018-05-17 09:23 | RAD_ITS ---
STUDY: X-RAY CHEST REASON FOR EXAM: Female, 83 years old. Shortness of breath. UTI. TECHNIQUE: AP and lateral views of the chest. COMPARISON: Comparison is made with prior study dated May 09, 2008. FINDINGS: The lungs are clear and expanded. Stable blunting of the posterior costophrenic angles. Normal size heart. A left-sided dual-chamber pacemaker is seen. Normal mediastinum and becky. Normal visualized pulmonary arteries. There is atherosclerotic calcification of the aortic arch with tortuosity. There is demineralization of the osseous structures. Increased kyphosis. Normal visualized ribs, clavicles, and shoulders. There is no demonstrated abnormality of the visualized soft tissue structures of the upper abdomen. RAD/Chest PA and Lateral IMPRESSION: The lungs are clear. Increased kyphosis. Electronically Signed: Sinan Coker, at 10:34 EDT , Service support ,
[2018-05-17 10:49] VITALS: O2SAT 96
[2018-05-17 11:11] LABS: Bedside Glucose 164 mg/dL (70-110)
--- NOTE | 2018-05-17 11:37 | CASEMGMT ---
Insurance: Continued stay review clinicals faxed to Chelsea at [facility]. Auth #[id number]
[2018-05-17] MEDS: Ascorbic Acid 500 MG Tablet PO ×2 (11:49→17:01)
[2018-05-17] MEDS: Iron Polysaccharide Complex 150 MG CAPSULE PO (11:49)
--- NOTE | 2018-05-17 12:00 | CASEMGMT ---
Social Work SW spoke with pt son Wolf and discussed d/c plan. Per Wolf, Pt will return home when stay in TCU is complete. No d/c date set at this time. SW will continue to follow for support and d/c planning. KD Huertas
[2018-05-17 15:08] VITALS: BP 120/55; PULSE 72; RESP 18; TEMP 36.4; O2SAT 95
[2018-05-17 17:00] LABS: Bedside Glucose 189 mg/dL (70-110)
[2018-05-17 17:01] VITALS: PULSE 72
[2018-05-17] MEDS: LINAGLIPTIN 5 MG TABLET PO (20:10)
[2018-05-17] MEDS: MELATONIN 3 MG TABLET PO (20:10)
[2018-05-17] MEDS: Mirtazapine 15 MG Tablet 7.5 MG PO (20:10)
[2018-05-17 21:01] LABS: Bedside Glucose 236 mg/dL (70-110)
[2018-05-18 05:19] VITALS: BP 134/62; PULSE 72
[2018-05-18] MEDS: Digoxin 125 MCG Tablet PO (05:19)
[2018-05-18] MEDS: METHENAMINE HIPPURATE 1 GM TABLET PO ×2 (05:19→17:45)
[2018-05-18] MEDS: Levothyroxine 88 MCG Tablet PO (05:19)
[2018-05-18] MEDS: Furosemide 40 MG Tablet PO (05:19)
[2018-05-18] MEDS: Metoprolol Tartrate 25 MG Tablet PO ×2 (05:19→17:45)
[2018-05-18] MEDS: Pantoprazole Sodium 40 MG Tablet PO (05:19)
[2018-05-18] MEDS: Febuxostat 40 MG TABLET 80 MG PO (05:20)
[2018-05-18] MEDS: APIXABAN 5 MG TABLET PO ×2 (05:20→17:45)
[2018-05-18] MEDS: Nystatin Powder 15gm Bottle 1 APPLIC TOPICAL ×2 (05:20→21:39)
[2018-05-18] MEDS: Menthol/Lanolin/Calamine/Znox 113 GM Tube 1 APPLIC TOPICAL ×2 (05:20→21:39)
--- NOTE | 2018-05-18 05:23 | NURSING ---
SPO2 asses during night pt maintained stats at 91% and 92% while on room air.
[2018-05-18 06:11] LABS: Bedside Glucose 184 mg/dL (70-110)
[2018-05-18] MEDS: Ascorbic Acid 500 MG Tablet PO ×2 (08:53→17:45)
[2018-05-18] MEDS: Iron Polysaccharide Complex 150 MG CAPSULE PO (08:54)
--- NOTE | 2018-05-18 09:06 | CASEMGMT ---
Insurance: TC from Chelsea at [facility]. Next clinical update due 05/20/18 with LCD of 05/22/18 and D/C to be planned for 05/23/18. Auth #[id number]. KD Fernandez aware. JANEEN Maguire
[2018-05-18 11:16] LABS: Bedside Glucose 204 mg/dL (70-110)
--- NOTE | 2018-05-18 12:15 | NURSING ---
Patient was on insulin injections at home, denies need for further education.
[2018-05-18 15:53] VITALS: BP 111/57; PULSE 78; RESP 18; TEMP 36.6; O2SAT 92
[2018-05-18 16:51] LABS: Bedside Glucose 176 mg/dL (70-110)
[2018-05-18 17:45] VITALS: BP 111/57; PULSE 78
[2018-05-18 21:25] LABS: Bedside Glucose 261 mg/dL (70-110)
[2018-05-18] MEDS: MELATONIN 3 MG TABLET PO (21:39)
[2018-05-18] MEDS: LINAGLIPTIN 5 MG TABLET PO (21:39)
[2018-05-18] MEDS: Mirtazapine 15 MG Tablet 7.5 MG PO (21:40)
[2018-05-19 05:11] VITALS: BP 131/63; PULSE 67
[2018-05-19] MEDS: Metoprolol Tartrate 25 MG Tablet PO ×2 (05:11→16:55)
[2018-05-19] MEDS: METHENAMINE HIPPURATE 1 GM TABLET PO ×2 (05:11→16:55)
[2018-05-19] MEDS: Furosemide 40 MG Tablet PO (05:11)
[2018-05-19] MEDS: Levothyroxine 88 MCG Tablet PO (05:11)
[2018-05-19] MEDS: Senna/Docusate Sodium 1 Tablet PO (05:11)
[2018-05-19] MEDS: Digoxin 125 MCG Tablet PO (05:11)
[2018-05-19] MEDS: Pantoprazole Sodium 40 MG Tablet PO (05:11)
[2018-05-19] MEDS: APIXABAN 5 MG TABLET PO ×2 (05:11→16:55)
[2018-05-19] MEDS: Febuxostat 40 MG TABLET 80 MG PO (05:12)
[2018-05-19] MEDS: Nystatin Powder 15gm Bottle 1 APPLIC TOPICAL ×2 (05:12→20:45)
[2018-05-19] MEDS: Menthol/Lanolin/Calamine/Znox 113 GM Tube 1 APPLIC TOPICAL ×2 (05:12→20:44)
[2018-05-19] MEDS: Polyethylene Glycol 3350 17 GM PACKET PO (05:12)
[2018-05-19 06:20] LABS: Bedside Glucose 99 mg/dL (70-110)
[2018-05-19] MEDS: Acetaminophen 500 MG Tablet 1000 MG PO (06:45)
[2018-05-19] MEDS: Ascorbic Acid 500 MG Tablet PO ×2 (08:23→16:55)
[2018-05-19] MEDS: Iron Polysaccharide Complex 150 MG CAPSULE PO (08:23)
[2018-05-19 11:21] LABS: Bedside Glucose 174 mg/dL (70-110)
[2018-05-19 16:00] VITALS: BP 114/61; PULSE 71; RESP 18; TEMP 36.7; O2SAT 96
[2018-05-19 16:55] VITALS: PULSE 71
[2018-05-19 17:10] LABS: Bedside Glucose 136 mg/dL (70-110)
[2018-05-19] MEDS: Mirtazapine 15 MG Tablet 7.5 MG PO (20:45)
[2018-05-19] MEDS: MELATONIN 3 MG TABLET PO (20:45)
[2018-05-19] MEDS: LINAGLIPTIN 5 MG TABLET PO (20:45)
[2018-05-19 20:47] VITALS: PULSE 67; O2SAT 95
[2018-05-19 20:51] LABS: Bedside Glucose 210 mg/dL (70-110)
[2018-05-20 04:59] VITALS: BP 131/67; PULSE 79
[2018-05-20] MEDS: METHENAMINE HIPPURATE 1 GM TABLET PO ×2 (04:59→17:09)
[2018-05-20] MEDS: Digoxin 125 MCG Tablet PO (04:59)
[2018-05-20] MEDS: Menthol/Lanolin/Calamine/Znox 113 GM Tube 1 APPLIC TOPICAL ×2 (04:59→21:37)
[2018-05-20] MEDS: APIXABAN 5 MG TABLET PO ×2 (04:59→17:08)
[2018-05-20 05:00] VITALS: BP 131/67; PULSE 79
[2018-05-20] MEDS: Nystatin Powder 15gm Bottle 1 APPLIC TOPICAL ×2 (05:00→21:37)
[2018-05-20] MEDS: Metoprolol Tartrate 25 MG Tablet PO ×2 (05:00→17:08)
[2018-05-20] MEDS: Pantoprazole Sodium 40 MG Tablet PO (05:00)
[2018-05-20] MEDS: Furosemide 40 MG Tablet PO (05:00)
[2018-05-20] MEDS: Levothyroxine 88 MCG Tablet PO (05:01)
[2018-05-20] MEDS: Febuxostat 40 MG TABLET 80 MG PO (05:01)
[2018-05-20 06:50] VITALS: PULSE 68
[2018-05-20 07:06] LABS: Bedside Glucose 172 mg/dL (70-110)
[2018-05-20] MEDS: Iron Polysaccharide Complex 150 MG CAPSULE PO (08:00)
[2018-05-20] MEDS: Ascorbic Acid 500 MG Tablet PO ×2 (08:00→17:08)
--- NOTE | 2018-05-20 09:11 | NURSING ---
pt was not on insulin at home, new order to DC lantus. continue to monitor Blood sugars.
[2018-05-20 11:00] LABS: Bedside Glucose 197 mg/dL (70-110)
--- NOTE | 2018-05-20 14:15 | CASEMGMT ---
Insurance Continued stay denied by insurance with last covered day 05/22/18 and d/c 05/23/18. [facility] and fax[facility] Chelsea at insurance. Auth # [id number] KD Huertas
--- NOTE | 2018-05-20 14:19 | CASEMGMT ---
Social Work SW met with pt and explained insurance denial of continued stay. Pt stating that she has spoke with her sons and the plan is to return home upon d/c. Pt will have a neighbor stay with her during the night and her son Richard has asked other neighbors to stay with her during the day. Pt is agreeable to recommended home health services PT/OT/AMMONIUM NITRATE NEUTRALIZER and would like to use [facility]. Pt has needed DME in the home including a medical alert. PT denied wishes for Meals on wheels and states her sons get her groceries and she can microwave meals. With permission phone call placed to pt son Wolf and informed of insurance decision and pt d/c plan. Wolf is agreeable to d/c plan. Family will transport pt home. Phone call to Altagracia in [facility] and they are able to accept pt. Referral made for PT/OT/AMMONIUM NITRATE NEUTRALIZER. Plan: Home with support of family and neighbors. [facility] PT/OT/HHS KD Huertas
[2018-05-20 16:00] VITALS: BP 123/63; PULSE 75; RESP 18; TEMP 36.6; O2SAT 96
[2018-05-20 16:56] LABS: Bedside Glucose 285 mg/dL (70-110)
[2018-05-20 17:08] VITALS: PULSE 75
[2018-05-20 21:21] LABS: Bedside Glucose 218 mg/dL (70-110)
[2018-05-20] MEDS: Mirtazapine 15 MG Tablet 7.5 MG PO (21:37)
[2018-05-20] MEDS: LINAGLIPTIN 5 MG TABLET PO (21:37)
[2018-05-20] MEDS: MELATONIN 3 MG TABLET PO (21:37)
--- NOTE | 2018-05-20 21:56 | PCM.DC ---
- Discharge Diagnoses Current Active Problems: Current Active and Chronic Problems (Last Reviewed 02/24/17 @ 07:57 by Altagracia Menard) Fall (Acute) Chronic kidney disease (Chronic) Chronic diastolic heart failure (Chronic) Diabetes mellitus (Chronic) Gout (Chronic) Recurrent UTI (Chronic) You will use the following diet at home:: No restrictions, Regular Your food should be the consistency of: Regular Your liquids should be the consistency of: Regular/Thin Discharge Activity: Return to Normal Activity, May Shower, Use Walker Weight Bearing Status: Weight bearing as tolerated Call your doctor if you observe: Fever of 101 or Higher, Inability to urinate, Inability to have a bowel movement, Shortness of breath, Chest pain, Uncontrolled pain Allergies/Adverse Reactions: Allergies amoxicillin [From Augmentin] Allergy (Verified 02/15/18 14:02) Other clavulanic acid [From Augmentin] Allergy (Verified 02/15/18 14:02) Other exenatide [From Byetta] Allergy (Verified 02/15/18 14:02) Other Penicillins [PCN] Allergy (Verified 02/15/18 14:02) Other simvastatin [From Zocor] Adverse Reaction (Severe, Verified 02/15/18 14:02) Myalgias prednisone Adverse Reaction (Unknown, Verified 02/15/18 14:02) Unknown metformin Adverse Reaction (Verified 02/15/18 14:02) Rash crestor Adverse Reaction (Intermediate, Uncoded 02/15/18 14:02) myalgia Medications to take at Discharge Digoxin 125 mcg PO DAILY #30 01/13/17 Febuxostat [Uloric] 80 mg PO DAILY #30 01/13/17 Lactobacillus Acidophilus [Acidophilus] 1 ea PO BID #30 01/13/17 Levothyroxine [Synthroid] 88 mcg PO DAILY #30 01/13/17 Melatonin 3 mg PO QHS #30 01/13/17 Pantoprazole Sodium [Protonix] 40 mg PO DAILY #30 01/13/17 metoprolol tartrate 25 mg tablet 25 mg PO BID 03/24/17 Ascorbic Acid 500 mg PO BID 05/27/17 Methenamine Hippurate 1 gm PO BID 05/27/17 Mirtazapine 7.5 mg PO QHS 05/27/17 Ondansetron [Zofran Odt] 4 mg PO Q8H PRN PRN #10 tab 02/15/18 Iron Polysaccharide Complex [Ferrex 150] 150 mg PO DAILYCM 04/28/18 Linagliptin [Tradjenta] 5 mg PO QHS 04/28/18 Apixaban [Eliquis] 5 mg PO BID 04/30/18 Acetaminophen [Tylenol] 1,000 mg PO Q6H PRN tablet 05/20/18 Furosemide [Lasix] 40 mg PO DAILY #30 tablet 05/20/18 Menthol/Lanolin/Calamine/Znox [Calmoseptine Ointment] 1 applic TOPICAL 0600,2200 tube 05/20/18 Mineral Oil/Petrolatum,White [Eucerin] 1 applic TOPICAL QHS jar 05/20/18 Nystatin Powder [Mycostatin Powder] 1 applic TOPICAL 0600,2200 bottle 05/20/18 Potassium Chloride [K-Dur] 20 meq PO DAILYCM #30 tablet 05/20/18 The following prescriptions were given: Furosemide [Lasix] 40 mg PO DAILY #30 tablet Potassium Chloride [K-Dur] 20 meq PO DAILYCM #30 tablet Primary Care Physician: Saroj Fajardo DO [Primary Care Provider] - Please follow up with your Primary Care Physician in: 1 week. Test Results: Test results from this visit will be discussed in further detail at your follow-up appointment, if applicable. Please Follow Up With: [facility] - PT/OT/Nurse When: They will call you to set up an appointment to come to your house Proposed Discharge Date: 05/23/18
--- NOTE | 2018-05-20 21:59 | DS.PCM_ITS ---
Discharge Date and Diagnosis - Problem List Patient Problems: Active and Suspected Problems (Last Reviewed 02/24/17 @ 07:57 by Altagracia Menard) Fall (Acute) Date of Admission: 04/30/18 Date of Discharge: 05/23/18 - Primary Discharge Diagnosis Active and Suspected Problems (Last Reviewed 02/24/17 @ 07:57 by Altagracia Menard) Fall (Acute) - Secondary Discharge Diagnosis Chronic Problems (Last Reviewed 02/24/17 @ 07:57 by Altagracia Menard) CKD (chronic kidney disease) stage 3, GFR 30-59 ml/min (Chronic) Chronic kidney disease (Chronic) Chronic diastolic heart failure (Chronic) Diabetes mellitus (Chronic) Gout (Chronic) Recurrent UTI (Chronic) Sick sinus syndrome (Chronic) Atrial fibrillation (Chronic) Cardiomyopathy, nonischemic (Chronic) HLD (hyperlipidemia) (Chronic) HTN (hypertension) (Chronic) Hypothyroidism (Chronic) Hypokalemia (Chronic) Chronic diastolic (congestive) heart failure (Chronic) Iron deficiency anemia (Chronic) GERD (gastroesophageal reflux disease) (Chronic) Cardiac pacemaker in situ (Chronic) DM2 (diabetes mellitus, type 2) (Chronic) CHF (congestive heart failure) (Chronic) Pulmonary hypertension (Chronic) Hospital Course and Treatment Imaging Results: 05/05/18 11:14 Diet: Regular Diet Dietary Modifications:: Mechanical Soft Diet Is pt able to select menu?: No Diet Comments: ADA Clinical Impression(s) from Imaging Studies KUB X-Ray 04/30/18 16:22 IMPRESSION: Nonspecific bowel gas pattern. Electronically Signed: Estrella Messer MD at 18:32 EDT Tel , Service support , Chest X-Ray 05/17/18 09:23 IMPRESSION: The lungs are clear. Increased kyphosis. Electronically Signed: Sinan Coker at 10:34 EDT , Service support , Labs (Last 48 Hours) 05/19/18 05/19/18 05/19/18 06:16 11:09 17:01 POC Glucose 99 174 H 136 H 05/19/18 05/20/18 05/20/18 20:41 06:33 10:54 POC Glucose 210 H 172 H 197 H 05/20/18 05/20/18 16:53 21:18 POC Glucose 285 H 218 H Operations: None, - Procedures: None Summary of Care Provided: The patient is a 83 year old Female with below past medical history hospitalized for fall, ruled out for urinary tract infection, admitted to TCU with debility, here for rehabilitation, strengthening, prior to discharge home alone. 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 Patient Problems: Active and Suspected Problems (Last Reviewed 02/24/17 @ 07:57 by Altagracia Menard) Fall (Acute) - Physical Exam Vital Signs Temp Pulse Resp BP Pulse Ox 97.9 F 75 18 123/63 H 96 05/20/18 16:00 05/20/18 17:08 05/20/18 16:00 05/20/18 16:00 05/20/18 16:00 Oxygen Flow Rate (L/min) 2 Oxygen Delivery Method Room Air Weight: 75.013 kg Body Mass Index (BMI) 26.7 Finger Stick Blood Glucose 276 Intake and Output for Last 24 Hours 05/18/18 05/19/18 05/20/18 23:59 23:59 23:59 Intake Total 840 / 840 700 / 700 360 / 360 Balance 840 / 840 700 / 700 360 / 360 POC Glucose 05/20/18 05/20/18 05/20/18 21:18 16:53 10:54 POC Glucose 218 H 285 H 197 H 05/20/18 06:33 POC Glucose 172 H Discharge Diet: No Restrictions Discharge Activity: Return to Normal Activity, May Shower, Use Walker Weight Bearing Status: Weight bearing as tolerated Call your doctor if you observe: Fever of 101 or Higher, Inability to urinate, Inability to have a bowel movement, Shortness of breath, Chest pain, Uncontrolled pain Home Medications: Medications to take at Discharge Digoxin 125 mcg PO DAILY #30 01/13/17 Febuxostat [Uloric] 80 mg PO DAILY #30 01/13/17 Lactobacillus Acidophilus [Acidophilus] 1 ea PO BID #30 01/13/17 Levothyroxine [Synthroid] 88 mcg PO DAILY #30 01/13/17 Melatonin 3 mg PO QHS #30 01/13/17 Pantoprazole Sodium [Protonix] 40 mg PO DAILY #30 01/13/17 metoprolol tartrate 25 mg tablet 25 mg PO BID 03/24/17 Ascorbic Acid 500 mg PO BID 05/27/17 Methenamine Hippurate 1 gm PO BID 05/27/17 Mirtazapine 7.5 mg PO QHS 05/27/17 Ondansetron [Zofran Odt] 4 mg PO Q8H PRN PRN #10 tab 02/15/18 Iron Polysaccharide Complex [Ferrex 150] 150 mg PO DAILYCM 04/28/18 Linagliptin [Tradjenta] 5 mg PO QHS 04/28/18 Apixaban [Eliquis] 5 mg PO BID 04/30/18 Acetaminophen [Tylenol] 1,000 mg PO Q6H PRN tablet 05/20/18 Furosemide [Lasix] 40 mg PO DAILY #30 tablet 05/20/18 Menthol/Lanolin/Calamine/Znox [Calmoseptine Ointment] 1 applic TOPICAL 0600,2200 tube 05/20/18 Mineral Oil/Petrolatum,White [Eucerin] 1 applic TOPICAL QHS jar 05/20/18 Nystatin Powder [Mycostatin Powder] 1 applic TOPICAL 0600,2200 bottle 05/20/18 Potassium Chloride [K-Dur] 20 meq PO DAILYCM #30 tablet 05/20/18 Following Prescrptions Were Given to Patient: Furosemide [Lasix] 40 mg PO DAILY #30 tablet Potassium Chloride [K-Dur] 20 meq PO DAILYCM #30 tablet Primary Care Physician: Saroj Fajardo DO [Primary Care Provider] - Please follow up with your Primary Care Physician in: 1 week. Please Follow Up With: [facility] - PT/OT/Nurse When: They will call you to set up an appointment to come to your house Disposition: Home with Home Health Minutes spent on discharge:: 35 Patient Condition:: Stable Medical Necessity - Tobacco Use Smoking Status: Never smoker Meaningful Use Info Meaningful Use Diagnoses (Choose all that apply): None applicable
--- NOTE | 2018-05-20 21:59 | PCM.PN.HH ---
Home Health Note - Plan Overview of reason of hospitalization: The patient is a 83 year old Female with below past medical history hospitalized for fall, ruled out for urinary tract infection, admitted to TCU with debility, here for rehabilitation, strengthening, prior to discharge home alone. 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 Problems: Patient was seen for (Last Reviewed 02/24/17 @ 07:57 by Altagracia Menard) Fall (Acute) Chronic kidney disease (Chronic) Chronic diastolic heart failure (Chronic) Diabetes mellitus (Chronic) Gout (Chronic) Recurrent UTI (Chronic) Complete List of Medical Problems (Last Reviewed 02/24/17 @ 07:57 by Altagracia Menard) Elevated lactic acid level (Acute) CKD (chronic kidney disease) stage 3, GFR 30-59 ml/min (Chronic) Fall (Acute) Chronic kidney disease (Chronic) Chronic diastolic heart failure (Chronic) Diabetes mellitus (Chronic) Gout (Chronic) Recurrent UTI (Chronic) Dyspnea, unspecified (Acute) Palpitations (Acute) Syncope and collapse (Acute) Chest pain (Acute) Fatigue (Acute) Fracture of right femur (Acute) Sick sinus syndrome (Chronic) Atrial fibrillation (Chronic) Cardiomyopathy, nonischemic (Chronic) HLD (hyperlipidemia) (Chronic) HTN (hypertension) (Chronic) Hypothyroidism (Chronic) Hypokalemia (Chronic) Chronic diastolic (congestive) heart failure (Chronic) Edema (Acute) Acute deep vein thrombosis (DVT) of left lower extremity (Acute) Iron deficiency anemia (Chronic) GERD (gastroesophageal reflux disease) (Chronic) Cardiac pacemaker in situ (Chronic) Hypotension (Acute) UTI (urinary tract infection) (Acute) DM2 (diabetes mellitus, type 2) (Chronic) CHF (congestive heart failure) (Chronic) Pulmonary hypertension (Chronic) - Requirements and Reasons Disciplines Needed/Ordered: Physical Therapy Reason for Disciplines: Disease Specific Monitoring/education, Gait Training, Stair Training, Fall Prevention, Home Safety/Equipment Instruction, Balance and/or Posture Training, Transfer Training Related To: Change in Medical Treatment Plan, Limited/Poor Endurance, Physical Impairments, Unsteady Gait/Balance, Fall Risk Patient is unable to leave the home: Without Aid of Supportive Devices (crutches, cane, wheelchair, walker), Without the assistance of another person - Additional Disciplines Additional Disciplines Needed/Ordered: Occupational Therapy, Home Health Aide
[2018-05-21 05:22] VITALS: PULSE 71
[2018-05-21] MEDS: Pantoprazole Sodium 40 MG Tablet PO (05:22)
[2018-05-21] MEDS: Febuxostat 40 MG TABLET 80 MG PO (05:22)
[2018-05-21] MEDS: Digoxin 125 MCG Tablet PO (05:22)
[2018-05-21] MEDS: Senna/Docusate Sodium 1 Tablet PO ×2 (05:22→17:15)
[2018-05-21] MEDS: Furosemide 40 MG Tablet PO (05:22)
[2018-05-21] MEDS: Levothyroxine 88 MCG Tablet PO (05:22)
[2018-05-21] MEDS: APIXABAN 5 MG TABLET PO ×2 (05:22→17:15)
[2018-05-21 05:23] VITALS: BP 133/77; PULSE 71
[2018-05-21] MEDS: Nystatin Powder 15gm Bottle 1 APPLIC TOPICAL ×2 (05:23→21:34)
[2018-05-21] MEDS: METHENAMINE HIPPURATE 1 GM TABLET PO ×2 (05:23→17:14)
[2018-05-21] MEDS: Menthol/Lanolin/Calamine/Znox 113 GM Tube 1 APPLIC TOPICAL ×2 (05:23→21:33)
[2018-05-21] MEDS: Metoprolol Tartrate 25 MG Tablet PO ×2 (05:23→17:14)
[2018-05-21 06:55] LABS: Bedside Glucose 159 mg/dL (70-110)
[2018-05-21] MEDS: Acetaminophen 500 MG Tablet 1000 MG PO (08:01)
[2018-05-21] MEDS: Ascorbic Acid 500 MG Tablet PO ×2 (08:01→17:14)
[2018-05-21] MEDS: Iron Polysaccharide Complex 150 MG CAPSULE PO (08:02)
[2018-05-21 11:10] LABS: Bedside Glucose 239 mg/dL (70-110)
--- NOTE | 2018-05-21 13:16 | MDS.RN ---
Pain interview for dinh 05/23/18 completed.
--- NOTE | 2018-05-21 13:44 | CASEMGMT ---
Addendum entered by Jimena Lanier 05/21/18 15:18: Student social work MDS documentation reviewed. KD Huertas Original Note: Brief interview for mental status (BIMS) and mood (PHQ-9) completed on this day. BIMS score 14/15. PHQ-9 score 05/12. Eduar Lopez social work student
[2018-05-21 14:20] VITALS: PULSE 76; RESP 18; O2SAT 92
[2018-05-21 16:00] VITALS: BP 107/54; PULSE 80; RESP 14; TEMP 36.9; O2SAT 96
[2018-05-21 17:14] VITALS: BP 107/54; PULSE 80
[2018-05-21 17:20] LABS: Bedside Glucose 274 mg/dL (70-110)
[2018-05-21] MEDS: Mirtazapine 15 MG Tablet 7.5 MG PO (21:32)
[2018-05-21] MEDS: MELATONIN 3 MG TABLET PO (21:32)
[2018-05-21] MEDS: LINAGLIPTIN 5 MG TABLET PO (21:32)
[2018-05-21 21:51] LABS: Bedside Glucose 282 mg/dL (70-110)
[2018-05-22] MEDS: Furosemide 40 MG Tablet PO (06:18)
[2018-05-22] MEDS: Levothyroxine 88 MCG Tablet PO (06:18)
[2018-05-22] MEDS: Febuxostat 40 MG TABLET 80 MG PO (06:18)
[2018-05-22] MEDS: Pantoprazole Sodium 40 MG Tablet PO (06:18)
[2018-05-22 06:19] VITALS: BP 124/71; PULSE 71
[2018-05-22] MEDS: Digoxin 125 MCG Tablet PO (06:19)
[2018-05-22] MEDS: METHENAMINE HIPPURATE 1 GM TABLET PO ×2 (06:19→17:25)
[2018-05-22 06:21] LABS: Bedside Glucose 179 mg/dL (70-110)
[2018-05-22 06:23] VITALS: BP 124/71; PULSE 70
[2018-05-22] MEDS: Senna/Docusate Sodium 1 Tablet PO (06:23)
[2018-05-22] MEDS: APIXABAN 5 MG TABLET PO ×2 (06:23→17:25)
[2018-05-22] MEDS: Metoprolol Tartrate 25 MG Tablet PO ×2 (06:23→17:25)
[2018-05-22] MEDS: Menthol/Lanolin/Calamine/Znox 113 GM Tube 1 APPLIC TOPICAL ×2 (06:28→20:20)
[2018-05-22] MEDS: Nystatin Powder 15gm Bottle 1 APPLIC TOPICAL ×2 (06:29→20:22)
[2018-05-22] MEDS: Iron Polysaccharide Complex 150 MG CAPSULE PO (08:00)
[2018-05-22] MEDS: Ascorbic Acid 500 MG Tablet PO ×2 (08:00→17:25)
[2018-05-22 11:30] LABS: Bedside Glucose 186 mg/dL (70-110)
[2018-05-22 14:54] VITALS: BP 124/72; PULSE 73; RESP 16; TEMP 36.8; O2SAT 95
[2018-05-22 17:20] LABS: Bedside Glucose 211 mg/dL (70-110)
[2018-05-22 17:25] VITALS: BP 124/72; PULSE 73
[2018-05-22 20:20] VITALS: PULSE 70; O2SAT 94
[2018-05-22] MEDS: MELATONIN 3 MG TABLET PO (20:22)
[2018-05-22] MEDS: Mirtazapine 15 MG Tablet 7.5 MG PO (20:23)
[2018-05-22] MEDS: LINAGLIPTIN 5 MG TABLET PO (20:23)
[2018-05-22 22:20] LABS: Bedside Glucose 246 mg/dL (70-110)
[2018-05-23] MEDS: Menthol/Lanolin/Calamine/Znox 113 GM Tube 1 APPLIC TOPICAL (04:52)
[2018-05-23 04:54] VITALS: BP 132/66; PULSE 71
[2018-05-23] MEDS: METHENAMINE HIPPURATE 1 GM TABLET PO (04:54)
[2018-05-23] MEDS: Metoprolol Tartrate 25 MG Tablet PO (04:54)
[2018-05-23] MEDS: APIXABAN 5 MG TABLET PO (04:54)
[2018-05-23] MEDS: Digoxin 125 MCG Tablet PO (04:54)
[2018-05-23] MEDS: Furosemide 40 MG Tablet PO (04:54)
[2018-05-23] MEDS: Febuxostat 40 MG TABLET 80 MG PO (04:55)
[2018-05-23] MEDS: Levothyroxine 88 MCG Tablet PO (04:55)
[2018-05-23] MEDS: Nystatin Powder 15gm Bottle 1 APPLIC TOPICAL (04:55)
[2018-05-23] MEDS: Pantoprazole Sodium 40 MG Tablet PO (04:55)
[2018-05-23 06:35] LABS: Bedside Glucose 198 mg/dL (70-110)
[2018-05-23] MEDS: Iron Polysaccharide Complex 150 MG CAPSULE PO (08:14)
[2018-05-23] MEDS: Acetaminophen 500 MG Tablet 1000 MG PO (08:14)
[2018-05-23] MEDS: Ascorbic Acid 500 MG Tablet PO (08:14)
[2018-05-23 11:41] LABS: Bedside Glucose 230 mg/dL (70-110)
[2018-05-23 13:33] VITALS: BP 139/64; PULSE 73; RESP 18; TEMP 37.1
--- NOTE | 2018-05-26 13:32 | MDS.RN ---
Information for the mds was obtained from review of the clinical record, interview of resident, staff, and direct observation of resident's care.
== END 2018-05-23 13:56 | disposition home health service (06) | DRG 948 ==
PROVIDERS: Admitting Provider Family Medicine Geriatric Medicine; Family Provider Family Medicine; PCP Family Medicine; Referring Provider Family Medicine Geriatric Medicine; Visit Provider Family Medicine Geriatric Medicine
DX: R53.81 Other malaise (principal); I13.0 Hypertensive heart and chronic kidney disease with heart failure and stage 1 through stage 4 chronic kidney disease, or unspecified chronic kidney disease; I50.32 Chronic diastolic (congestive) heart failure; I27.20 Pulmonary hypertension, unspecified; D50.9 Iron deficiency anemia, unspecified; E03.9 Hypothyroidism, unspecified; N18.3 Chronic kidney disease, stage 3 (moderate); E11.22 Type 2 diabetes mellitus with diabetic chronic kidney disease; M10.9 Gout, unspecified; I48.2 Chronic atrial fibrillation; E78.5 Hyperlipidemia, unspecified; K21.9 Gastro-esophageal reflux disease without esophagitis; Z91.81 History of falling; Z95.0 Presence of cardiac pacemaker; F32.9 Major depressive disorder, single episode, unspecified; Z87.440 Personal history of urinary (tract) infections
CPT/HCPCS: 36415; 71046; 74018; 80048; 80162; 82962; 85025; 92526; 97110; 97116; 97162; 97166; 97530; 97535; 97802

== ENCOUNTER → 2018-07-16 13:24 | Outpatient (CLI) | payer MEDICARE, SELFPAY ==
[2018-06-14 13:26] VITALS: BMI 26.9
[2018-07-16 13:26] LABS: Bacteria 0 SEEN /hpf (None Seen); Mucous, Urine 0 SEEN /hpf (<or=2+); Red Blood Cells-Urine 0 SEEN /hpf (0-5); Squamous Epithelial Cells - UA 0 SEEN /hpf (5-10)
[2018-07-16 15:54] LABS: Color, Urine Straw (Yellow); Glucose, Dipstick 250 mg/dl (Normal); Ketone-Dipstick Negative (Negative); Leukocyte Esterase-Dipstick 500 /ul (Negative); Nitrite-Dipstick Negative (Negative); Occult Blood-Urine 150 /ul (Negative); Protein-Dipstick 100 mg/dl (Negative); Specific Gravity, Urine 1.015 (1.002-1.030); Urine Bilirubin Dipstick Negative (Negative); Urine Clarity Turbid (Clear); Urine Urobilinogen Normal (Normal)
[2018-07-16 16:08] LABS: White Blood Cells >100 SEEN /hpf (0-5); Yeast-Urine 2+ /hpf (None Seen)
== END ==
PROVIDERS: Family Provider Family Medicine; PCP Family Medicine; Visit Provider Family Medicine
DX: R30.0 Dysuria (principal)
CPT/HCPCS: 81001

== ENCOUNTER 2018-08-18 17:16 | Inpatient (IN) | payer MEDICARE, SELFPAY ==
[2018-06-14 13:26] VITALS: BMI 26.9
[2018-08-18 17:20] VITALS: BP 134/76; PULSE 84; RESP 17; TEMP 37.5; O2SAT 93; BMI 27.4
--- NOTE | 2018-08-18 17:33 | EKG12_ITS ---
Test Reason : GENERAL ILLNESS Blood Pressure : / mmHG Vent. Rate : 083 BPM Atrial Rate : 083 BPM P-R Int : 166 ms QRS Dur : 176 ms QT Int : 420 ms P-R-T Axes : 051 -54 106 degrees QTc Int : 493 ms Atrial-sensed ventricular-paced rhythm Abnormal ECG Confirmed by RHETT SAEZ, KAMI ([id number]), videotape editor YURY HERNANDEZ ([id number]) on 08/23/2018 1:26:20 PM Referred By: John Barrientos Confirmed By:KAMI DELANEY MD
--- NOTE | 2018-08-18 17:37 | RAD_ITS ---
STUDY: X-RAY CHEST REASON FOR EXAM: Female, 83 years old. Shortness of breath TECHNIQUE: Frontal view of the chest COMPARISON: X-ray chest May 17, 2018 FINDINGS: There is a left chest pacemaker. The lungs are clear. There are no pleural effusions. There is no pneumothorax. The heart is normal in size. The visualized osseous structures are within normal limits. RAD/Chest 1 View (Portable) IMPRESSION: No acute thoracic pathology. Electronically Signed: Aries Herr, at 17:55 EDT Tel , Service support ,
[2018-08-18 17:38] VITALS: BP 144/75; PULSE 83; RESP 20; TEMP 37.5; O2SAT 96
--- NOTE | 2018-08-18 17:38 | ED.DCSUM_ITS ---
- ER Visit Summary Date of Service: 08/18/18 Chief Complaint: [Weakness, fever, decreased appetite] History of Present Illness: The patient is a 83 F [presents the emergency department with symptoms that started 5 days ago. Patient was started recently on amoxicillin for questionable urinary tract infection. Son is noticed that she has had some increased confusion intermittently. Patient had one point picked up the remote control for the television and thought it was the phone. Patient had some mild nausea but no vomiting. She describes some intermittent mild shortness of breath. She is had no cough. She denies any chest pain. Patient on Eliquis for history of DVT. She has a history of diabetes and hypertension. Patient just generally feels weak.] Physical Examination: [HEENT-PERRLA, EOMI. Cranial nerves II through XII grossly intact. TMs clear. Mucous membranes moist. No adenopathy. Cardiovascular-regular rate and rhythm without murmur or ectopy Lungs-clear to auscultation, chest wall stable without crepitus or subcu emphysema Abdomen-normoactive bowel sounds, soft, nontender, no rebound or rigidity, no peritoneal signs. Extremities-intact ?4, normal range of motion, normal pulses, atraumatic] Test Results: [EKG obtained showed atrially sensed ventricular paced rhythm. CBC with additional count 8.3, hemoglobin 15, hematocrit 44, placement 72. Chemistries unremarkable. Urinalysis showed 500 leukocyte esterase as well as greater than 100 WBCs and rare bacteria. Troponin is less than 1015.] Emergency Department Course and Treatment: [Patient was started on Rocephin 1 g IV. Patient had a urine culture sent. Blood culture sent.] Treatment Plan: [Admit] Disposition: [Admit] Impression: [UTI Generalized weakness Confusion-secondary to UTI] This note was generated with [employer] dictation software. It may contain incorrect words, spelling, and punctuation that were not noted in review of the chart prior to signing ED Disposition - Plan for ED Patient: Referrals: Saroj Fajardo DO [Primary Care Provider] -
--- NOTE | 2018-08-18 17:39 | ED.RN ---
PT BG PER FAMILY IS SUPPOSED TO BE BETWEEN 225-300.
[2018-08-18] MEDS: 0.9% Normal Saline 1,000 ML 1000 ML IV (17:48)
[2018-08-18 17:59] LABS: Mucous, Urine 0 SEEN /hpf (<or=2+); Red Blood Cells-Urine 0 SEEN /hpf (0-5)
[2018-08-18 18:06] LABS: Absolute Lymphocyte Count 0.78 X10^3/ul (0.83-4.51); Absolute Neutrophil Count 6.7 X10^3/uL (2.0-7.7); Basophil# 0.03 X10^3/uL; Basophil% 0.4 % (0-1); Eosinophil# 0.07 X10^3/uL; Eosinophils% 0.8 % (0-5); Hemoglobin 14.9 g/dl (12.0-15.0); Lymphocyte # 0.78 X10^3/ul (4.0); Lymphocyte % 9.4 % (19-41); Mean Corp Hgb Conc 33.9 g/gl (32-36); Mean Corpuscular Hgb 28.5 pg (27.0-32.0); Mean Corpuscular Volume 84.1 fL (81-99); Monocyte# 0.74 X10^3/uL; Monocyte% 8.9 % (0-10); Neutrophil # 6.66 X10^3/uL (2.7-7.7); Neutrophil % 80.1 % (47-70); Platelet Count 172 K/mm3 (150-450); RBC Distribution Width CV 14.2 % (11.6-14.6); RBC Distribution Width SD 43.8 fl (35.1-43.9); Red Blood Count 5.23 M/mm3 (4.2-5.4); White Blood Count 8.3 K/mm3 (4.4-11.0)
[2018-08-18 18:12] LABS: POSITIVE COUNT NO; POSITIVE DIFFERENTIAL NO; POSITIVE MORPHOLOGY NO
[2018-08-18 18:12] LABS: Color, Urine Yellow (Yellow); Glucose, Dipstick Normal (Normal); Ketone-Dipstick 15 mg/dl (Negative); Leukocyte Esterase-Dipstick 500 /ul (Negative); Nitrite-Dipstick Negative (Negative); Occult Blood-Urine 10 /ul (Negative); Protein-Dipstick 15 mg/dl (Negative); Specific Gravity, Urine 1.015 (1.002-1.030); Urine Bilirubin Dipstick Negative (Negative); Urine Clarity Cloudy (Clear); Urine Urobilinogen Normal (Normal)
[2018-08-18 18:15] LABS: Anion Gap 6 (5-15); BUN 12 mg/dL (7-18); BUN/Creat Ratio 16.4 RATIO (10-20); Chloride 103 mmol/L (98-107); Creatinine, Serum 0.73 mg/dL (0.55-1.02); EST Glomerular Filtration Rate 81 mL/min (>60); Est Glom Filt Rate - Afr Amer 98 mL/min (>60); Glucose 201 mg/dL (74-106); Potassium 3.4 mmol/L (3.5-5.1); Sodium Level 136 mmol/L (136-145)
[2018-08-18 18:22] LABS: Bacteria RARE /hpf (None Seen); Squamous Epithelial Cells - UA 0-5 SEEN /hpf (5-10); White Blood Cells >100 SEEN /hpf (0-5)
[2018-08-18 18:23] VITALS: BP 147/75; PULSE 77; RESP 19; TEMP 37.5; O2SAT 97
[2018-08-18 18:23] LABS: Lactic Acid 1.3 mmol/L (0.4-2.0)
[2018-08-18 19:00] VITALS: BP 151/73; PULSE 79; RESP 20; TEMP 37.6; O2SAT 94
--- NOTE | 2018-08-18 19:23 | HP.PCM_ITS ---
Problem List (1) UTI (urinary tract infection) Status: Acute Qualifiers: Urinary tract infection type: acute cystitis (2) Metabolic encephalopathy Status: Acute History of Present Illness Date of Admission: 08/18/18 Chief Complaint: confusion The patient is a 83 year old F who for the past several days has not been feeling well. Patient has been eating less but more confused. Patient's confusion is sticking her remote control for telephone. Additionally patient was using heating pad without plugging it in [place] other episodes. Patient lives by herself though does have aid to check on her as well as family that lives 500 feet away. For the most part, the patient is pretty independent but is confused such as when she gets a urinary tract infections. They did see her primary care physician this week who did prescribe amoxicillin patient was taking that but still was having the confusion. They were concerned also, that her blood sugar may be an issue. According to her son, patient gets confused and her blood sugar gets less than 200. The brought to the emergency room today and was found to have urinary tract infection. Received Rocephin. Patient being admitted for further management of her confusion as well as a UTI. [] Past Medical History Past Medical History (Chronic Problems): Chronic Problems (Last Reviewed 06/14/18 @ 14:05 by PATSY Melchor) CKD (chronic kidney disease) stage 3, GFR 30-59 ml/min (Chronic) Chronic kidney disease (Chronic) Chronic diastolic heart failure (Chronic) Diabetes mellitus (Chronic) Gout (Chronic) Recurrent UTI (Chronic) Sick sinus syndrome (Chronic) Atrial fibrillation (Chronic) Cardiomyopathy, nonischemic (Chronic) HLD (hyperlipidemia) (Chronic) HTN (hypertension) (Chronic) Hypothyroidism (Chronic) Hypokalemia (Chronic) Chronic diastolic (congestive) heart failure (Chronic) Iron deficiency anemia (Chronic) GERD (gastroesophageal reflux disease) (Chronic) Cardiac pacemaker in situ (Chronic) DM2 (diabetes mellitus, type 2) (Chronic) CHF (congestive heart failure) (Chronic) Pulmonary hypertension (Chronic) Medical History: Medical History (Last Reviewed 08/18/18 @ 19:25 by John Barrientos DO) Fracture of right femur (Acute) S72.91XA Sick sinus syndrome (Chronic) I49.5 Atrial fibrillation (Chronic) I48.91 Cardiomyopathy, nonischemic (Chronic) I42.8 HLD (hyperlipidemia) (Chronic) E78.5 HTN (hypertension) (Chronic) I10 Hypothyroidism (Chronic) E03.9 Hypokalemia (Chronic) E87.6 Chronic diastolic (congestive) heart failure (Chronic) I50.32 Edema (Acute) R60.9 Acute deep vein thrombosis (DVT) of left lower extremity (Acute) I82.402 Iron deficiency anemia (Chronic) D50.9 GERD (gastroesophageal reflux disease) (Chronic) K21.9 Cardiac pacemaker in situ (Chronic) Z95.0 Hypotension (Acute) I95.9 UTI (urinary tract infection) (Acute) N39.0 DM2 (diabetes mellitus, type 2) (Chronic) E11.9 CHF (congestive heart failure) (Chronic) I50.9 Pulmonary hypertension (Chronic) I27.2 Acute kidney injury N17.9 Chronic diarrhea K52.9 Cystitis N30.90 Dementia F03.90 Depression F32.9 Encephalopathy G93.40 Gout M10.9 Postoperative anemia D64.9 H/O: hysterectomy Z90.710 Acute kidney injury (Inactive) N17.9 Afib (Inactive) I48.91 Chronic diarrhea (Inactive) K52.9 Cystitis (Inactive) N30.90 no culture obtained DVT of axillary vein, acute left (Inactive) I82.A12 Dementia (Inactive) F03.90 Depression (Inactive) F32.9 Diarrhea (Inactive) R19.7 Dvt femoral (deep venous thrombosis) (Inactive) I82.419 left leg Encephalopathy (Inactive) G93.40 Fall (Inactive) W19.XXXA Gout (Inactive) M10.9 Muscle spasm (Inactive) M62.838 Pacemaker (Inactive) Z95.0 Postoperative anemia (Inactive) D64.9 Thrush (Inactive) B37.0 Allergies amoxicillin [From Augmentin] Allergy (Verified 08/18/18 17:17) Other clavulanic acid [From Augmentin] Allergy (Verified 08/18/18 17:17) Other exenatide [From Byetta] Allergy (Verified 08/18/18 17:17) Other Penicillins [PCN] Allergy (Verified 08/18/18 17:17) Other simvastatin [From Zocor] Adverse Reaction (Severe, Verified 08/18/18 17:17) Myalgias prednisone Adverse Reaction (Unknown, Verified 08/18/18 17:17) Unknown metformin Adverse Reaction (Verified 08/18/18 17:17) Rash crestor Adverse Reaction (Intermediate, Uncoded 08/18/18 17:17) myalgia Home Medications: Ambulatory Orders Medication Instructions Recorded Digoxin 125 mcg PO DAILY #30 01/13/17 Levothyroxine [Synthroid] 88 mcg PO DAILY #30 01/13/17 metoprolol tartrate 25 mg tablet 25 mg PO BID 03/24/17 Methenamine Hippurate 1 gm PO BID 05/27/17 Mirtazapine 7.5 mg PO QHS 05/27/17 Linagliptin [Tradjenta] 5 mg PO QHS 04/28/18 Apixaban [Eliquis] 5 mg PO BID 04/30/18 Mineral Oil/Petrolatum,White 1 applic TOPICAL QHS jar 05/20/18 [Eucerin] Acetaminophen [Tylenol] 650 mg PO PRN PRN 08/18/18 Amoxicillin 500 mg PO TID 08/18/18 Ascorbic Acid [Vitamin C] 500 mg PO DAILY 08/18/18 Estrogens, Conjugated [Premarin] 1 dose VAGINAL DAILY 08/18/18 Febuxostat [Uloric] 80 mg PO DAILY 08/18/18 L.acidoph,Paracasei, B.lactis 1 ea PO DAILY 08/18/18 [Probiotic] Melatonin 6 mg PO QHS 08/18/18 Pantoprazole Sodium [Protonix] 40 mg PO DAILY 08/18/18 Surgical History: Surgical History (Last Reviewed 08/18/18 @ 19:25 by John Barrientos DO) History of bilateral knee replacement Z96.653 History of cholecystectomy Z90.49 Presence of vena cava filter Z95.828 implantation pacemakr pacemaker generator change Surgical History: cholecystectomy, hysterectomy, pacemaker implantation, total knee arthroplasty - Bilateral., - - IVC filter, pacemaker placement, right hip fracture repair. Psychiatric History: Anxiety, Depression MANAGER ER History: No pertinent MANAGER ER history Lives: Alone Smoking Status: Never smoker - *Family History Paternal Family History: Family History (Last Reviewed 08/18/18 @ 19:25 by John Barrienots DO) Father Myocardial infarction History Items: Heart Disease Maternal Family History: Family History (Last Reviewed 08/18/18 @ 19:25 by John Barrientos DO) Father Myocardial infarction History Items: - - No marked maternal family history including heart disease, diabetes or cancer. Review of Systems Constitutional: Reports: Fever. Denies: Anorexia, Chills Eyes: Denies: Blurred vision, Double vision HEENT: Denies: Head Aches, Sinus Congestion, Sinus Drainage Cardiovascular: Denies: Chest Pain, Palpitations Respiratory: Denies: Cough, Shortness of breath at rest, Sputum production Gastrointestinal: Denies: Abdominal Pain, Nausea, Vomiting Genitourinary: Reports: Incontinence, - - Wears adult diapers and according to her son, may be over saturated frequently.. Denies: Dysuria Musculoskeletal: Denies: Joint Pain, Joint Tenderness Skin: Denies: Rash, Wounds Neurological: Denies: Numbness, Tingling, Focal weakness Psychiatric: Reports: Depression. Denies: Anxiety Hematologic/ Lymphatic: Denies: Easy Bruising, Easy Bleeding, Hx of blood clot Comment: A 10 point review of systems were negative except as mentioned in the history of present illness and the other review of systems. VTE Information - Inpt Only VTE Present on Admission: No VTE Mechan Device Prophylaxis: None VTE Pharm Prophylaxis ordered?: No Reason prophylaxis not ordered:: Procedure Not Indicated Patient Problems: Active and Suspected Problems (Last Reviewed 06/14/18 @ 14:05 by PATSY Melchor) UTI (urinary tract infection) (Acute) Metabolic encephalopathy (Acute) - Physical Exam General: Alert, Oriented x3, Cooperative, No apparent distress HEENT: Atraumatic, Normocephalic Oral: Moist Mucosa, No Gingival or Mucosal Lesions/ Ulcerations Neck: No Nodes, Thyroid Normal Size and Texture Lungs: Normal air movement, - - Left lower lobe crackles Cardiovascular: Regular rate, Regular Rhythm, Normal S1, Normal S2, No murmurs Abdomen: Bowel Sounds Present, Soft, Non Tender, Non-Distended, No Hepato- splenomegaly Extremities: No Calf Tenderness, Edema - Nonpitting Skin: No rashes, No breakdown Musculoskeletal: No Tenderness to Palpation of Joints or Extremities, No Muscle Wasting Neurological: Deep Tendon Reflexes 2+/4 and Symmetrical, - - No clonus Psych/Mental Status: Normal Affect, Appropriate Vital Signs Temp Pulse Resp BP Pulse Ox 37.6 C H 79 20 H 151/73 H 94 08/18/18 19:00 08/18/18 19:00 08/18/18 19:00 08/18/18 19:00 08/18/18 19:00 Oxygen Delivery Method Room Air Weight: 77.2 kg Body Mass Index (BMI) 27.4 Finger Stick Blood Glucose 276 Laboratory Tests Past 24 Hrs 08/18/18 08/18/18 08/18/18 17:45 17:45 17:45 WBC 8.3 RBC 5.23 Hgb 14.9 Hct 44.0 MCV 84.1 MCH 28.5 MCHC 33.9 RDW 14.2 RDW Differential 43.8 Plt Count 172 MPV 10.0 Immature Gran % (Auto) 0.400 Neut % (Auto) 80.1 H Lymph % (Auto) 9.4 L [place] % (Auto) 8.9 Eos % (Auto) 0.8 Baso % (Auto) 0.4 Absolute Neuts (auto) 6.7 Absolute Lymphs (auto) 0.78 L Total Counted Not Reportable Sodium 136 Potassium 3.4 L Chloride 103 Carbon Dioxide 27.0 Anion Gap 6 BUN 12 Creatinine 0.73 Estim Creat Clear Calc 39.90 Est GFR (MDRD) Af Amer 98 Est GFR (MDRD) Non-Af 81 BUN/Creatinine Ratio 16.4 Glucose 201 H Lactic Acid 1.3 Calcium 9.0 Troponin I < 0.015 Urine Color Urine Clarity Urine pH Ur Specific [place] Urine Protein Urine Glucose (UA) Urine Ketones Urine Occult Blood Urine Nitrite Urine Bilirubin Urine Urobilinogen Ur Leukocyte Esterase Urine RBC Urine WBC Ur Squamous Epith Cells Urine Bacteria Urine Mucus 08/18/18 17:55 WBC RBC Hgb Hct MCV MCH MCHC RDW RDW Differential Plt Count MPV Immature Gran % (Auto) Neut % (Auto) Lymph % (Auto) [place] % (Auto) Eos % (Auto) Baso % (Auto) Absolute Neuts (auto) Absolute Lymphs (auto) Total Counted Sodium Potassium Chloride Carbon Dioxide Anion Gap BUN Creatinine Estim Creat Clear Calc Est GFR (MDRD) Af Amer Est GFR (MDRD) Non-Af BUN/Creatinine Ratio Glucose Lactic Acid Calcium Troponin I Urine Color Yellow Urine Clarity Cloudy Urine pH 5.0 Ur Specific [place] 1.015 Urine Protein 15 H Urine Glucose (UA) Normal Urine Ketones 15 H Urine Occult Blood 10 H Urine Nitrite Negative Urine Bilirubin Negative Urine Urobilinogen Normal Ur Leukocyte Esterase 500 H Urine RBC 0 SEEN Urine WBC >100 SEEN Ur Squamous Epith Cells 0-5 SEEN Urine Bacteria RARE Urine Mucus 0 SEEN Assessment/Plan All Active Problems (Last Reviewed 06/14/18 @ 14:05 by PATSY Melchor) Elevated lactic acid level (Acute) Fall (Acute) UTI (urinary tract infection) (Acute) Metabolic encephalopathy (Acute) Dyspnea, unspecified (Acute) Palpitations (Acute) Syncope and collapse (Acute) Chest pain (Acute) Fatigue (Acute) Fracture of right femur (Acute) Edema (Acute) Acute deep vein thrombosis (DVT) of left lower extremity (Acute) Hypotension (Acute) UTI (urinary tract infection) (Acute) 1. Acute urinary tract infection * Failed outpatient treatment with amoxicillin * patient received Rocephin in the emergency room and will continue on the floor * Follow-up blood and urine cultures and adjust antibiotics accordingly * Hold amoxicillin and methenamine * Patient may resume methenamine after she has completed her antibiotics course 2. Metabolic encephalopathy * Likely secondary to the urinary tract infection * Monitor for now * Avoid potentiating medications * Patient is pretty independent at home but I did discuss with patient's son about possibility of underlying dementia and recommended outpatient referral to geriatrics to undergo a more formal evaluation 3. Atrial fibrillation * Currently paced * Anticoagulated with apixaban 4. Diabetes mellitus type 2 * Poorly controlled at baseline * Continue Tradjenta * Son states that patient gets confused and her blood sugar drops less than 200. I told him that I am not sure if her becoming confused is related with her blood sugar if there is other confounding factors involved. I told him anecdotally if never had any patient who been symptomatic with blood sugars just less than 200. I told him I would be more concerned about other confounding factors potentiating her confusion. Said that we will put her on sliding scale and monitor 5. VTE prophylaxis: Low risk as patient is already anticoagulated on apixaban. Therefore no VTE prophylaxis indicated at this time. 6. Advanced care planning: Patient was DNR Comfort Care arrest before arrival. Confirmed with the patient's son that she is DNR Comfort Care arrest and he stated that she is. 7. Depression: Patient's son had committed suicide recently. Patient has been on mirtazapine and has recently been increased to 30 mg nightly according to her other son. He states that she has been tolerating that well. We will continue that dose for now. 8. Debility: Physical outpatient therapy evaluate and treat. Discussed possibilities of patient requiring fdc facility upon discharge. The patient's son is agreeable to that if necessary. 9. Disposition: Anticipated length of stay is at least 48 hours pending on results of culture results. Will assess the patient does require fdc facility and then getting insurance approval may prolong her hospitalization longer than that. Code Visit Inpatient E&M: 28633 Init Hosp L3
[2018-08-18] MEDS: Ceftriaxone 1 GM/50 ML BAG IV (19:24)
[2018-08-18] MEDS: 0.9% Normal Saline 1,000 ML 150 ML IV (19:24)
[2018-08-18 19:43] VITALS: BMI 26.1
[2018-08-18 20:04] VITALS: BP 156/85; PULSE 77; RESP 16; TEMP 37.3; O2SAT 95
[2018-08-18] MEDS: Acetaminophen 325 MG Tablet 650 MG PO (20:39)
[2018-08-18 22:39] VITALS: BP 156/85; PULSE 77
[2018-08-18] MEDS: LINAGLIPTIN 5 MG TABLET PO (22:39)
[2018-08-18] MEDS: Metoprolol Tartrate 25 MG Tablet PO (22:39)
[2018-08-18] MEDS: Mirtazapine 30 MG Tablet PO (22:39)
[2018-08-18] MEDS: APIXABAN 5 MG TABLET PO (22:40)
[2018-08-18] MEDS: MELATONIN 3 MG TABLET 6 MG PO (22:40)
[2018-08-18 22:55] LABS: Bedside Glucose 140 mg/dL (70-110)
[2018-08-19] VITALS (7 sets, daily range): BP systolic 118–153; BP diastolic 64–88; PULSE 70–79; RESP 16–18; TEMP 36.8–36.9; O2SAT 94–95
[2018-08-19] MEDS: Acetaminophen 325 MG Tablet 650 MG PO ×3 (03:28→23:11)
[2018-08-19] MEDS: Levothyroxine 88 MCG Tablet PO (05:27)
[2018-08-19] MEDS: Nystatin Powder 15gm Bottle 1 APPLIC TOPICAL ×2 (05:27→21:07)
[2018-08-19] MEDS: Menthol/Lanolin/Calamine/Znox 113 GM Tube 1 APPLIC TOPICAL ×2 (05:28→21:07)
[2018-08-19 07:15] LABS: Absolute Lymphocyte Count 1.38 X10^3/ul (0.83-4.51); Absolute Neutrophil Count 4.2 X10^3/uL (2.0-7.7); Basophil# 0.02 X10^3/uL; Basophil% 0.3 % (0-1); Eosinophil# 0.11 X10^3/uL; Eosinophils% 1.8 % (0-5); Hematocrit 38.7 % (37-47); Hemoglobin 12.9 g/dl (12.0-15.0); Lymphocyte # 1.38 X10^3/ul (4.0); Lymphocyte % 22.4 % (19-41); Mean Corp Hgb Conc 33.3 g/gl (32-36); Mean Corpuscular Volume 84.1 fL (81-99); Monocyte# 0.48 X10^3/uL; Monocyte% 7.8 % (0-10); Neutrophil # 4.17 X10^3/uL (2.7-7.7); Neutrophil % 67.5 % (47-70); Platelet Count 158 K/mm3 (150-450); RBC Distribution Width CV 14.2 % (11.6-14.6); RBC Distribution Width SD 43.4 fl (35.1-43.9); White Blood Count 6.2 K/mm3 (4.4-11.0)
[2018-08-19 07:27] LABS: POSITIVE COUNT NO; POSITIVE DIFFERENTIAL NO; POSITIVE MORPHOLOGY NO
[2018-08-19 07:36] LABS: Bedside Glucose 110 mg/dL (70-110)
[2018-08-19 07:45] LABS: BUN 10 mg/dL (7-18); Creatinine, Serum 0.55 mg/dL (0.55-1.02); Glucose 109 mg/dL (74-106)
[2018-08-19 07:46] LABS: Anion Gap 9 (5-15); BUN/Creat Ratio 18.2 RATIO (10-20); Calcium,Total 8.2 mg/dL (8.5-10.1); Chloride 109 mmol/L (98-107); EST Glomerular Filtration Rate 113 mL/min (>60); Est Glom Filt Rate - Afr Amer 136 mL/min (>60); Magnesium 1.5 mg/dL (1.6-2.6); Potassium 3.3 mmol/L (3.5-5.1); Sodium Level 141 mmol/L (136-145)
[2018-08-19] MEDS: Glucerna Shake 120 ML LIQUID PO ×3 (09:40→21:16)
[2018-08-19] MEDS: Estrogens,Conj. 1 Tube 1 DOSE VAGINAL (09:41)
[2018-08-19] MEDS: APIXABAN 5 MG TABLET PO ×2 (09:42→21:10)
[2018-08-19] MEDS: Febuxostat 40 MG TABLET 80 MG PO (09:42)
[2018-08-19] MEDS: Pantoprazole Sodium 40 MG Tablet PO (09:42)
[2018-08-19] MEDS: Ceftriaxone 1 GM/50 ML BAG IV (09:53)
[2018-08-19] MEDS: Digoxin 125 MCG Tablet PO (09:53)
[2018-08-19] MEDS: Metoprolol Tartrate 25 MG Tablet PO ×2 (09:53→21:09)
--- NOTE | 2018-08-19 10:50 | PCM.PROGNOTE ---
Patient Problems: Active and Suspected Problems (Last Reviewed 08/18/18 @ 19:25 by John Barrientos DO) UTI (urinary tract infection) (Acute) Metabolic encephalopathy (Acute) Subjective: The patient is an 83-year-old female with a past medical history of chronic renal failure stage III, chronic diastolic congestive heart failure, diabetes mellitus type 2, gout, sick sinus syndrome, atrial fibrillation, upper lipidemia, hypertension, hypothyroidism, GERD, pacemaker placement and pulmonary hypertension who presented to the emergency department at [facility] on 08/18/2018 complaining of confusion. She complained of not feeling well for the preceding few days. Appetite and intake were decreased. She lives by herself but has an aide and family who check on her frequently. She did visit her primary care physician this past week and was placed on amoxicillin for suspected urinary tract infection. UA in the emergency department showed greater than 100 WBCs per high-power field with 0-5 squamous epithelial cells. The white blood cell count was normal at 8.3 but there was a left shift present. Hemoglobin and platelets were within normal limits. Potassium was low at 3.4 and the BUN was 12 with a creatinine of 0.73. Lactic acid was normal at 1.3 and the troponin was less than 0.015. She was admitted to the hospital with a diagnosis of acute urinary tract infection with altered mental status. She was treated with IV Rocephin in the emergency department and this was continued at admission. Currently afebrile. Vital signs are stable. Pulse ox is 95% on room air. White blood cell count today is 6.2 with a normal differential. Hemoglobin and platelets are within normal limits. Potassium is low at 3.3 and the BUN is 10 with a creatinine of 0.55. Magnesium is low at 1.5. She is rather upset....she is sitting in a chair and states she has diarrhea and needs to be changed. Knows where she is but, not why she is in the hospital - Physical Exam General: Alert, Cooperative HEENT: Atraumatic, PERRLA, EOMI Oral: Moist Mucosa Neck: Supple, No JVD, No Nuchal Rigidity, Trachea Midline Lungs: Clear to auscultation Cardiovascular: Regular rate, Regular Rhythm, Normal S1, Normal S2, No murmurs, No Gallop Abdomen: Bowel Sounds Present, Soft, Non Tender, Non-Distended, - - No guarding with palpation Extremities: No clubbing, No cyanosis Skin: No rashes Neurological: Cranial nerves II-XII grossly intact, Neuro grossly intact Vital Signs Temp Pulse Resp BP Pulse Ox 98.2 F 78 18 150/88 H 95 08/19/18 09:25 08/19/18 09:53 08/19/18 09:25 08/19/18 09:53 08/19/18 09:25 Oxygen Delivery Method Room Air Weight: 161 lb 13.109 oz Body Mass Index (BMI) 26.1 Finger Stick Blood Glucose 276 Intake and Output for Last 24 Hours 08/17/18 08/18/18 08/19/18 23:59 23:59 23:59 Intake Total 1118 / 1118 Balance 1118 / 1118 Laboratory Tests Past 24 Hrs 08/18/18 08/18/18 08/18/18 17:45 17:45 17:45 WBC 8.3 RBC 5.23 Hgb 14.9 Hct 44.0 MCV 84.1 MCH 28.5 MCHC 33.9 RDW 14.2 RDW Differential 43.8 Plt Count 172 MPV 10.0 Immature Gran % (Auto) 0.400 Neut % (Auto) 80.1 H Lymph % (Auto) 9.4 L [place] % (Auto) 8.9 Eos % (Auto) 0.8 Baso % (Auto) 0.4 Absolute Neuts (auto) 6.7 Absolute Lymphs (auto) 0.78 L Total Counted Not Reportable Sodium 136 Potassium 3.4 L Chloride 103 Carbon Dioxide 27.0 Anion Gap 6 BUN 12 Creatinine 0.73 Estim Creat Clear Calc 39.90 Est GFR (MDRD) Af Amer 98 Est GFR (MDRD) Non-Af 81 BUN/Creatinine Ratio 16.4 Glucose 201 H Lactic Acid 1.3 Calcium 9.0 Magnesium Troponin I < 0.015 Urine Color Urine Clarity Urine pH Ur Specific [place] Urine Protein Urine Glucose (UA) Urine Ketones Urine Occult Blood Urine Nitrite Urine Bilirubin Urine Urobilinogen Ur Leukocyte Esterase Urine RBC Urine WBC Ur Squamous Epith Cells Urine Bacteria Urine Mucus 08/18/18 08/19/18 08/19/18 17:55 06:43 06:43 WBC 6.2 RBC 4.60 Hgb 12.9 Hct 38.7 MCV 84.1 MCH 28.0 MCHC 33.3 RDW 14.2 RDW Differential 43.4 Plt Count 158 MPV 10.0 Immature Gran % (Auto) 0.200 Neut % (Auto) 67.5 Lymph % (Auto) 22.4 [place] % (Auto) 7.8 Eos % (Auto) 1.8 Baso % (Auto) 0.3 Absolute Neuts (auto) 4.2 Absolute Lymphs (auto) 1.38 Total Counted Not Reportable Sodium 141 Potassium 3.3 L Chloride 109 H Carbon Dioxide 23.0 Anion Gap 9 BUN 10 Creatinine 0.55 Estim Creat Clear Calc 39.90 Est GFR (MDRD) Af Amer 136 Est GFR (MDRD) Non-Af 113 BUN/Creatinine Ratio 18.2 Glucose 109 H Lactic Acid Calcium 8.2 L Magnesium 1.5 L Troponin I Urine Color Yellow Urine Clarity Cloudy Urine pH 5.0 Ur Specific [place] 1.015 Urine Protein 15 H Urine Glucose (UA) Normal Urine Ketones 15 H Urine Occult Blood 10 H Urine Nitrite Negative Urine Bilirubin Negative Urine Urobilinogen Normal Ur Leukocyte Esterase 500 H Urine RBC 0 SEEN Urine WBC >100 SEEN Ur Squamous Epith Cells 0-5 SEEN Urine Bacteria RARE Urine Mucus 0 SEEN POC Glucose 08/19/18 08/18/18 07:24 22:44 POC Glucose 110 140 H Medical Necessity - Tobacco Use Smoking Status: Never smoker Tobacco Use: Non-smoker Assessment/Plan All Active Problems (Last Reviewed 08/18/18 @ 19:25 by John Barrientos DO) Elevated lactic acid level (Acute) Fall (Acute) UTI (urinary tract infection) (Acute) Metabolic encephalopathy (Acute) Dyspnea, unspecified (Acute) Palpitations (Acute) Syncope and collapse (Acute) Chest pain (Acute) Fatigue (Acute) Fracture of right femur (Acute) Edema (Acute) Acute deep vein thrombosis (DVT) of left lower extremity (Acute) Hypotension (Acute) UTI (urinary tract infection) (Acute) Impressions 1. Acute urinary tract infection-failed outpatient amoxicillin 2. Acute encephalopathy-likely secondary to infection 3. Atrial fibrillation with sick sinus syndrome-status post pacemaker 4. Chronic renal failure stage III 5. Chronic diastolic congestive heart failure 6. Diabetes mellitus type 2 7. Hyperlipidemia 8. Hypertension 9. Hypothyroidism 11. GERD 12. Pulmonary hypertension 13. Hypokalemia 14. Hypomagnesemia Discontinue Rocephin-review of past urine cultures shows that she has had Enterococcus faecalis on more than one occasion. She states that she is allergic to penicillin but the reaction is listed as other. Enterococcus has been susceptible to fluoroquinolones in the past which I hesitate to use in this age range and ricky with confusion BUT, she is allergic to PCN. Await the results of the urine culture Code Visit Inpatient E&M: 49892 Subs Hosp L2
[2018-08-19 11:26] LABS: Bedside Glucose 172 mg/dL (70-110)
[2018-08-19] MEDS: Insulin Lispro 100 UNIT/ML INSULN.PEN SC (12:54)
[2018-08-19 14:59] LABS: Digoxin Level 0.87 ng/mL (0.80-2.00)
[2018-08-19] MEDS: Ondansetron 4 MG/2 ML Vial IV (15:25)
[2018-08-19] MEDS: 0.9% NaCl Peripheral Flush Adult/Peds IV ×2 (15:25→19:47)
[2018-08-19 16:51] LABS: Bedside Glucose 144 mg/dL (70-110)
[2018-08-19] MEDS: levoFLOXacin IV 250 MG/50 ML BAG 50 MG IV (19:47)
[2018-08-19] MEDS: Mirtazapine 30 MG Tablet PO (21:08)
[2018-08-19] MEDS: LINAGLIPTIN 5 MG TABLET PO (21:08)
[2018-08-19] MEDS: MELATONIN 3 MG TABLET PO (21:09)
[2018-08-19 21:55] LABS: Bedside Glucose 153 mg/dL (70-110)
[2018-08-20] VITALS (9 sets, daily range): BP systolic 129–144; BP diastolic 60–83; PULSE 74–82; RESP 16–18; TEMP 36.8–37.1; O2SAT 93–96
[2018-08-20] MEDS: Levothyroxine 88 MCG Tablet PO (05:27)
[2018-08-20] MEDS: 0.9% NaCl Peripheral Flush Adult/Peds IV (05:30)
[2018-08-20 07:11] LABS: Bedside Glucose 145 mg/dL (70-110)
[2018-08-20 07:37] LABS: Anion Gap 9 (5-15); BUN 10 mg/dL (7-18); BUN/Creat Ratio 16.5 RATIO (10-20); Calcium,Total 8.6 mg/dL (8.5-10.1); Chloride 108 mmol/L (98-107); Creatinine, Serum 0.61 mg/dL (0.55-1.02); EST Glomerular Filtration Rate 100 mL/min (>60); Est Glom Filt Rate - Afr Amer 121 mL/min (>60); Glucose 136 mg/dL (74-106); Potassium 4.1 mmol/L (3.5-5.1); Sodium Level 140 mmol/L (136-145)
[2018-08-20] MEDS: Metoprolol Tartrate 25 MG Tablet PO ×2 (10:00→21:07)
[2018-08-20] MEDS: APIXABAN 5 MG TABLET PO ×2 (10:00→21:09)
[2018-08-20] MEDS: Magnesium Oxide 400 MG Tablet PO (10:00)
[2018-08-20] MEDS: Febuxostat 40 MG TABLET 80 MG PO (10:01)
[2018-08-20] MEDS: Digoxin 125 MCG Tablet PO (10:01)
[2018-08-20] MEDS: Pantoprazole Sodium 40 MG Tablet PO (10:01)
[2018-08-20] MEDS: Glucerna Shake 120 ML LIQUID PO ×4 (10:02→21:08)
--- NOTE | 2018-08-20 10:07 | CASEMGMT ---
LW/POA in echart, SW printed and will place in chart. JANEEN Gonzalez
[2018-08-20] MEDS: Insulin Lispro 100 UNIT/ML INSULN.PEN SC (11:37)
[2018-08-20 11:46] LABS: Bedside Glucose 206 mg/dL (70-110)
--- NOTE | 2018-08-20 13:00 | CASEMGMT ---
RN CM Face to Face with patient for initial transition planning/care coordination assessment. RN CM introduced self and role at [facility]. Patient sitting in chair, confused, daughter in law in room who is assisting with answering questions. Care providers, pharmacy, and demographics verified. Patient wishes to discharge home and does not want to decide if she wants HHC. Patient states she has no further needs or concerns at this time. CM to follow for discharge planning needs that may arise. PCP: Tana Specialists: Catia, home health speech therapist; Rebekah lead installer Preferred Pharmacy: [facility] Insurance: [employer] [facility] Prescription Benefit: yes Living Will/HPOA: yes son Jeremy Gomes LNOK: son Living Arrangements: Patient lives alone in 1 story home with ramp to enter the home. Transportation: son DME/HHC: Patient has shower chair, raised toilet, cane, grab bars, walker, and wheel chair at home. Has been to TCU in the past and has had [facility] HHC. Son came to room and discussed with this RN CM that patient is too weak and confused to go home and would prefer is patient goes to TCU at discharge. Son also voiced to this CM that patient recently lost her son and has been more depressed. PA Ortez updated regarding request for TCU and grief counseling . Disposition Plan: TCU pending Precert. Karma CALVO, RN, CM
--- NOTE | 2018-08-20 13:25 | CASEMGMT ---
Social Work Note RN DIEUDONNE Salas updated this worker that pt is presently confused and pt's son would like pt to go to TCU at discharge. SW also updated that per pt's son pt's other son recently. SW familiar with pt's son passing that was in May 2018. PA placed a call to Ginny in TCU and updated her on referral and to submit for pre-cert. Ginny to submit for pre-cert. Given pt's current confusion, talking to pt now about the passing of her son wouldn't be beneficial. Pt will likely be at [facility] through the weekend for pre-cert and then this worker call follow up with pt Thursday in regards to the passing of her son or once pt gets to TCU, SW on TCU can speak with pt regarding grief. Plan: TCU pending pre-cert Karma Ortez TEST DIRECTOR, SHANK BURNISHER
[2018-08-20] MEDS: Menthol/Lanolin/Calamine/Znox 113 GM Tube 1 APPLIC TOPICAL ×2 (14:05→21:09)
[2018-08-20] MEDS: Nystatin Powder 15gm Bottle 1 APPLIC TOPICAL ×2 (14:05→21:08)
[2018-08-20] MEDS: Estrogens,Conj. 1 Tube 1 DOSE VAGINAL (14:08)
--- NOTE | 2018-08-20 15:02 | CASEMGMT ---
Social Work Note Per physician pt would benefit from byron-psych evaluation due to pt's son recently passing and pt being depressed. PA placed a call to [facility] and spoke with Aga. Aga states she has an appointment at 3:00pm and the two other staff members aren't back in the office yet but one of them will call [facility] in regards to the referral. PA updated Aga that this worker is leaving for the weekend and provided Aga with [facility] main number and informed Aga to call [facility] number. Aga states understanding. PA updated Charge Nurse Tessa of referral to [facility]. Karma Ortez OIL SPOT WASHER, JANITOR SUPERVISOR
[2018-08-20 17:26] LABS: Bedside Glucose 141 mg/dL (70-110)
[2018-08-20] MEDS: Mirtazapine 30 MG Tablet PO (21:06)
[2018-08-20] MEDS: MELATONIN 3 MG TABLET PO (21:07)
[2018-08-20] MEDS: LINAGLIPTIN 5 MG TABLET PO (21:07)
[2018-08-20] MEDS: levoFLOXacin IV 250 MG/50 ML BAG 50 MG IV (21:12)
[2018-08-20 21:26] LABS: Bedside Glucose 167 mg/dL (70-110)
[2018-08-21] VITALS (7 sets, daily range): BP systolic 126–160; BP diastolic 61–83; PULSE 64–80; RESP 16; TEMP 36.3–36.9; O2SAT 93–97
--- NOTE | 2018-08-21 04:52 | NURSING ---
pt awake, confused, asking where she was and stated she didn't understand why she was here. asking where her cats are, when asked what her cats names are she said she wasn't going to tell me.
[2018-08-21] MEDS: Levothyroxine 88 MCG Tablet PO (06:25)
[2018-08-21] MEDS: Insulin Lispro 100 UNIT/ML INSULN.PEN SC ×3 (06:30→16:21)
[2018-08-21 06:45] LABS: Bedside Glucose 175 mg/dL (70-110)
[2018-08-21] MEDS: Menthol/Lanolin/Calamine/Znox 113 GM Tube 1 APPLIC TOPICAL (09:45)
[2018-08-21] MEDS: Magnesium Oxide 400 MG Tablet PO (09:45)
[2018-08-21] MEDS: Digoxin 125 MCG Tablet PO (09:45)
[2018-08-21] MEDS: APIXABAN 5 MG TABLET PO (09:45)
[2018-08-21] MEDS: Metoprolol Tartrate 25 MG Tablet PO (09:46)
[2018-08-21] MEDS: Pantoprazole Sodium 40 MG Tablet PO (09:46)
[2018-08-21] MEDS: Nystatin Powder 15gm Bottle 1 APPLIC TOPICAL (09:47)
[2018-08-21] MEDS: Febuxostat 40 MG TABLET 80 MG PO (09:47)
[2018-08-21] MEDS: Glucerna Shake 120 ML LIQUID PO ×2 (09:48→13:47)
[2018-08-21 11:25] LABS: Bedside Glucose 208 mg/dL (70-110)
--- NOTE | 2018-08-21 12:22 | DS.PCM_ITS ---
Discharge Date and Diagnosis - Problem List Patient Problems: Active and Suspected Problems (Last Reviewed 08/18/18 @ 19:25 by John Barrientos DO) UTI (urinary tract infection) (Acute) Metabolic encephalopathy (Acute) Date of Admission: 08/18/18 Date of Discharge: 08/21/18 - Primary Discharge Diagnosis Active and Suspected Problems (Last Reviewed 08/18/18 @ 19:25 by John Barrientos DO) Urinary tract infection-ruled out Candiduria Acute Encephalopathy - suspect secondary to severe depression Hypokalemia Hypomagnesemia - Secondary Discharge Diagnosis Chronic Problems (Last Reviewed 08/18/18 @ 19:25 by John Barrientos DO) CKD (chronic kidney disease) stage 3, GFR 30-59 ml/min (Chronic) Chronic diastolic heart failure (Chronic) Diabetes mellitus II (Chronic) Gout (Chronic) Recurrent UTI (Chronic) Sick sinus syndrome (Chronic) Atrial fibrillation (Chronic) Cardiomyopathy, nonischemic (Chronic) HLD (hyperlipidemia) (Chronic) HTN (hypertension) (Chronic) Hypothyroidism (Chronic) Hypokalemia (Chronic) Chronic diastolic (congestive) heart failure (Chronic) Iron deficiency anemia (Chronic) GERD (gastroesophageal reflux disease) (Chronic) Cardiac pacemaker in situ (Chronic) Pulmonary hypertension (Chronic) Hospital Course and Treatment Imaging Results: Clinical Impression(s) from Imaging Studies Chest X-Ray 08/18/18 17:37 IMPRESSION: No acute thoracic pathology. Electronically Signed: Aries Herr, at 17:55 EDT Tel , Service support , Laboratory Tests 08/21/18 08/21/18 08/20/18 Range/Units 11:05 06:29 21:18 WBC (4.4-11.0) K/mm3 RBC (4.2-5.4) M/mm3 Hgb (12.0-15.0) g/dl Hct (37-47) % MCV (81-99) fL MCH (27.0-32.0) pg MCHC (32-36) g/gl RDW (11.6-14.6) % RDW Differential (35.1-43.9) fl Plt Count (150-450) K/mm3 MPV (6.2-12.0) fl Immature Gran % (Auto) (0.0-0.9) % Neut % (Auto) (47-70) % Lymph % (Auto) (19-41) % [place] % (Auto) (0-10) % Eos % (Auto) (0-5) % Baso % (Auto) (0-1) % Absolute Neuts (auto) (2.0-7.7) X10^3/uL Absolute Lymphs (auto) (0.83-4.51) X10^3/ul Total Counted Sodium (136-145) mmol/L Potassium (3.5-5.1) mmol/L Chloride (98-107) mmol/L Carbon Dioxide (21.0-32.0) mmol/L Anion Gap (5-15) BUN (7-18) mg/dL Creatinine (0.55-1.02) mg/dL Estim Creat Clear Calc ml/min Est GFR (MDRD) Af Amer (>60) mL/min Est GFR (MDRD) Non-Af (>60) mL/min BUN/Creatinine Ratio (10-20) RATIO Glucose (74-106) mg/dL Lactic Acid (0.4-2.0) mmol/L Calcium (8.5-10.1) mg/dL Magnesium (1.6-2.6) mg/dL Troponin I (<0.045) ng/mL Urine Color (Yellow) Urine Clarity (Clear) Urine pH (5.0 - 8.0) Ur Specific Marshall (1.002-1.030) Urine Protein (Negative) mg/dl Urine Glucose (UA) (Normal) mg/dl Urine Ketones (Negative) mg/dl Urine Occult Blood (Negative) /ul Urine Nitrite (Negative) Urine Bilirubin (Negative) mg/dL Urine Urobilinogen (Normal) mg/dl Ur Leukocyte Esterase (Negative) /ul Urine RBC (0-5) /hpf Urine WBC (0-5) /hpf Ur Squamous Epith Cells (5-10) /hpf Urine Bacteria (None Seen) /hpf Urine Mucus (<or=2+) /hpf Digoxin (0.80-2.00) ng/mL POC Glucose 208 H 175 H 167 H (70-110) mg/dL 07/05/19 07/05/19 07/05/19 Range/Units 17:21 11:35 06:49 WBC (4.4-11.0) K/mm3 RBC (4.2-5.4) M/mm3 Hgb (12.0-15.0) g/dl Hct (37-47) % MCV (81-99) fL MCH (27.0-32.0) pg MCHC (32-36) g/gl RDW (11.6-14.6) % RDW Differential (35.1-43.9) fl Plt Count (150-450) K/mm3 MPV (6.2-12.0) fl Immature Gran % (Auto) (0.0-0.9) % Neut % (Auto) (47-70) % Lymph % (Auto) (19-41) % [place] % (Auto) (0-10) % Eos % (Auto) (0-5) % Baso % (Auto) (0-1) % Absolute Neuts (auto) (2.0-7.7) X10^3/uL Absolute Lymphs (auto) (0.83-4.51) X10^3/ul Total Counted Sodium 140 (136-145) mmol/L Potassium 4.1 (3.5-5.1) mmol/L Chloride 108 H (98-107) mmol/L Carbon Dioxide 23.0 (21.0-32.0) mmol/L Anion Gap 9 (5-15) BUN 10 (7-18) mg/dL Creatinine 0.61 (0.55-1.02) mg/dL Estim Creat Clear Calc 39.90 ml/min Est GFR (MDRD) Af Amer 121 (>60) mL/min Est GFR (MDRD) Non-Af 100 (>60) mL/min BUN/Creatinine Ratio 16.5 (10-20) RATIO Glucose 136 H (74-106) mg/dL Lactic Acid (0.4-2.0) mmol/L Calcium 8.6 (8.5-10.1) mg/dL Magnesium 2.0 (1.6-2.6) mg/dL Troponin I (<0.045) ng/mL Urine Color (Yellow) Urine Clarity (Clear) Urine pH (5.0 - 8.0) Ur Specific Marshall (1.002-1.030) Urine Protein (Negative) mg/dl Urine Glucose (UA) (Normal) mg/dl Urine Ketones (Negative) mg/dl Urine Occult Blood (Negative) /ul Urine Nitrite (Negative) Urine Bilirubin (Negative) mg/dL Urine Urobilinogen (Normal) mg/dl Ur Leukocyte Esterase (Negative) /ul Urine RBC (0-5) /hpf Urine WBC (0-5) /hpf Ur Squamous Epith Cells (5-10) /hpf Urine Bacteria (None Seen) /hpf Urine Mucus (<or=2+) /hpf Digoxin (0.80-2.00) ng/mL POC Glucose 141 H 206 H (70-110) mg/dL 08/20/18 08/19/18 08/19/18 Range/Units 06:28 21:48 16:47 WBC (4.4-11.0) K/mm3 RBC (4.2-5.4) M/mm3 Hgb (12.0-15.0) g/dl Hct (37-47) % MCV (81-99) fL MCH (27.0-32.0) pg MCHC (32-36) g/gl RDW (11.6-14.6) % RDW Differential (35.1-43.9) fl Plt Count (150-450) K/mm3 MPV (6.2-12.0) fl Immature Gran % (Auto) (0.0-0.9) % Neut % (Auto) (47-70) % Lymph % (Auto) (19-41) % [place] % (Auto) (0-10) % Eos % (Auto) (0-5) % Baso % (Auto) (0-1) % Absolute Neuts (auto) (2.0-7.7) X10^3/uL Absolute Lymphs (auto) (0.83-4.51) X10^3/ul Total Counted Sodium (136-145) mmol/L Potassium (3.5-5.1) mmol/L Chloride (98-107) mmol/L Carbon Dioxide (21.0-32.0) mmol/L Anion Gap (5-15) BUN (7-18) mg/dL Creatinine (0.55-1.02) mg/dL Estim Creat Clear Calc ml/min Est GFR (MDRD) Af Amer (>60) mL/min Est GFR (MDRD) Non-Af (>60) mL/min BUN/Creatinine Ratio (10-20) RATIO Glucose (74-106) mg/dL Lactic Acid (0.4-2.0) mmol/L Calcium (8.5-10.1) mg/dL Magnesium (1.6-2.6) mg/dL Troponin I (<0.045) ng/mL Urine Color (Yellow) Urine Clarity (Clear) Urine pH (5.0 - 8.0) Ur Specific [place] (1.002-1.030) Urine Protein (Negative) mg/dl Urine Glucose (UA) (Normal) mg/dl Urine Ketones (Negative) mg/dl Urine Occult Blood (Negative) /ul Urine Nitrite (Negative) Urine Bilirubin (Negative) mg/dL Urine Urobilinogen (Normal) mg/dl Ur Leukocyte Esterase (Negative) /ul Urine RBC (0-5) /hpf Urine WBC (0-5) /hpf Ur Squamous Epith Cells (5-10) /hpf Urine Bacteria (None Seen) /hpf Urine Mucus (<or=2+) /hpf Digoxin (0.80-2.00) ng/mL POC Glucose 145 H 153 H 144 H (70-110) mg/dL 08/19/18 08/19/18 08/19/18 Range/Units 13:25 11:17 07:24 WBC (4.4-11.0) K/mm3 RBC (4.2-5.4) M/mm3 Hgb (12.0-15.0) g/dl Hct (37-47) % MCV (81-99) fL MCH (27.0-32.0) pg MCHC (32-36) g/gl RDW (11.6-14.6) % RDW Differential (35.1-43.9) fl Plt Count (150-450) K/mm3 MPV (6.2-12.0) fl Immature Gran % (Auto) (0.0-0.9) % Neut % (Auto) (47-70) % Lymph % (Auto) (19-41) % [place] % (Auto) (0-10) % Eos % (Auto) (0-5) % Baso % (Auto) (0-1) % Absolute Neuts (auto) (2.0-7.7) X10^3/uL Absolute Lymphs (auto) (0.83-4.51) X10^3/ul Total Counted Sodium (136-145) mmol/L Potassium (3.5-5.1) mmol/L Chloride (98-107) mmol/L Carbon Dioxide (21.0-32.0) mmol/L Anion Gap (5-15) BUN (7-18) mg/dL Creatinine (0.55-1.02) mg/dL Estim Creat Clear Calc ml/min Est GFR (MDRD) Af Amer (>60) mL/min Est GFR (MDRD) Non-Af (>60) mL/min BUN/Creatinine Ratio (10-20) RATIO Glucose (74-106) mg/dL Lactic Acid (0.4-2.0) mmol/L Calcium (8.5-10.1) mg/dL Magnesium (1.6-2.6) mg/dL Troponin I (<0.045) ng/mL Urine Color (Yellow) Urine Clarity (Clear) Urine pH (5.0 - 8.0) Ur Specific [place] (1.002-1.030) Urine Protein (Negative) mg/dl Urine Glucose (UA) (Normal) mg/dl Urine Ketones (Negative) mg/dl Urine Occult Blood (Negative) /ul Urine Nitrite (Negative) Urine Bilirubin (Negative) mg/dL Urine Urobilinogen (Normal) mg/dl Ur Leukocyte Esterase (Negative) /ul Urine RBC (0-5) /hpf Urine WBC (0-5) /hpf Ur Squamous Epith Cells (5-10) /hpf Urine Bacteria (None Seen) /hpf Urine Mucus (<or=2+) /hpf Digoxin 0.87 (0.80-2.00) ng/mL POC Glucose 172 H 110 (70-110) mg/dL 08/19/18 08/19/18 08/18/18 Range/Units 06:43 06:43 22:44 WBC 6.2 (4.4-11.0) K/mm3 RBC 4.60 (4.2-5.4) M/mm3 Hgb 12.9 (12.0-15.0) g/dl Hct 38.7 (37-47) % MCV 84.1 (81-99) fL MCH 28.0 (27.0-32.0) pg MCHC 33.3 (32-36) g/gl RDW 14.2 (11.6-14.6) % RDW Differential 43.4 (35.1-43.9) fl Plt Count 158 (150-450) K/mm3 MPV 10.0 (6.2-12.0) fl Immature Gran % (Auto) 0.200 (0.0-0.9) % Neut % (Auto) 67.5 (47-70) % Lymph % (Auto) 22.4 (19-41) % [place] % (Auto) 7.8 (0-10) % Eos % (Auto) 1.8 (0-5) % Baso % (Auto) 0.3 (0-1) % Absolute Neuts (auto) 4.2 (2.0-7.7) X10^3/uL Absolute Lymphs (auto) 1.38 (0.83-4.51) X10^3/ul Total Counted Not Reportable Sodium 141 (136-145) mmol/L Potassium 3.3 L (3.5-5.1) mmol/L Chloride 109 H (98-107) mmol/L Carbon Dioxide 23.0 (21.0-32.0) mmol/L Anion Gap 9 (5-15) BUN 10 (7-18) mg/dL Creatinine 0.55 (0.55-1.02) mg/dL Estim Creat Clear Calc 39.90 ml/min Est GFR (MDRD) Af Amer 136 (>60) mL/min Est GFR (MDRD) Non-Af 113 (>60) mL/min BUN/Creatinine Ratio 18.2 (10-20) RATIO Glucose 109 H (74-106) mg/dL Lactic Acid (0.4-2.0) mmol/L Calcium 8.2 L (8.5-10.1) mg/dL Magnesium 1.5 L (1.6-2.6) mg/dL Troponin I (<0.045) ng/mL Urine Color (Yellow) Urine Clarity (Clear) Urine pH (5.0 - 8.0) Ur Specific [place] (1.002-1.030) Urine Protein (Negative) mg/dl Urine Glucose (UA) (Normal) mg/dl Urine Ketones (Negative) mg/dl Urine Occult Blood (Negative) /ul Urine Nitrite (Negative) Urine Bilirubin (Negative) mg/dL Urine Urobilinogen (Normal) mg/dl Ur Leukocyte Esterase (Negative) /ul Urine RBC (0-5) /hpf Urine WBC (0-5) /hpf Ur Squamous Epith Cells (5-10) /hpf Urine Bacteria (None Seen) /hpf Urine Mucus (<or=2+) /hpf Digoxin (0.80-2.00) ng/mL POC Glucose 140 H (70-110) mg/dL 08/18/18 08/18/18 08/18/18 Range/Units 17:55 17:45 17:45 WBC (4.4-11.0) K/mm3 RBC (4.2-5.4) M/mm3 Hgb (12.0-15.0) g/dl Hct (37-47) % MCV (81-99) fL MCH (27.0-32.0) pg MCHC (32-36) g/gl RDW (11.6-14.6) % RDW Differential (35.1-43.9) fl Plt Count (150-450) K/mm3 MPV (6.2-12.0) fl Immature Gran % (Auto) (0.0-0.9) % Neut % (Auto) (47-70) % Lymph % (Auto) (19-41) % [place] % (Auto) (0-10) % Eos % (Auto) (0-5) % Baso % (Auto) (0-1) % Absolute Neuts (auto) (2.0-7.7) X10^3/uL Absolute Lymphs (auto) (0.83-4.51) X10^3/ul Total Counted Sodium 136 (136-145) mmol/L Potassium 3.4 L (3.5-5.1) mmol/L Chloride 103 (98-107) mmol/L Carbon Dioxide 27.0 (21.0-32.0) mmol/L Anion Gap 6 (5-15) BUN 12 (7-18) mg/dL Creatinine 0.73 (0.55-1.02) mg/dL Estim Creat Clear Calc 39.90 ml/min Est GFR (MDRD) Af Amer 98 (>60) mL/min Est GFR (MDRD) Non-Af 81 (>60) mL/min BUN/Creatinine Ratio 16.4 (10-20) RATIO Glucose 201 H (74-106) mg/dL Lactic Acid 1.3 (0.4-2.0) mmol/L Calcium 9.0 (8.5-10.1) mg/dL Magnesium (1.6-2.6) mg/dL Troponin I < 0.015 (<0.045) ng/mL Urine Color Yellow (Yellow) Urine Clarity Cloudy (Clear) Urine pH 5.0 (5.0 - 8.0) Ur Specific [place] 1.015 (1.002-1.030) Urine Protein 15 H (Negative) mg/dl Urine Glucose (UA) Normal (Normal) mg/dl Urine Ketones 15 H (Negative) mg/dl Urine Occult Blood 10 H (Negative) /ul Urine Nitrite Negative (Negative) Urine Bilirubin Negative (Negative) mg/dL Urine Urobilinogen Normal (Normal) mg/dl Ur Leukocyte Esterase 500 H (Negative) /ul Urine RBC 0 SEEN (0-5) /hpf Urine WBC >100 SEEN (0-5) /hpf Ur Squamous Epith Cells 0-5 SEEN (5-10) /hpf Urine Bacteria RARE (None Seen) /hpf Urine Mucus 0 SEEN (<or=2+) /hpf Digoxin (0.80-2.00) ng/mL POC Glucose (70-110) mg/dL 08/18/18 Range/Units 17:45 WBC 8.3 (4.4-11.0) K/mm3 RBC 5.23 (4.2-5.4) M/mm3 Hgb 14.9 (12.0-15.0) g/dl Hct 44.0 (37-47) % MCV 84.1 (81-99) fL MCH 28.5 (27.0-32.0) pg MCHC 33.9 (32-36) g/gl RDW 14.2 (11.6-14.6) % RDW Differential 43.8 (35.1-43.9) fl Plt Count 172 (150-450) K/mm3 MPV 10.0 (6.2-12.0) fl Immature Gran % (Auto) 0.400 (0.0-0.9) % Neut % (Auto) 80.1 H (47-70) % Lymph % (Auto) 9.4 L (19-41) % [place] % (Auto) 8.9 (0-10) % Eos % (Auto) 0.8 (0-5) % Baso % (Auto) 0.4 (0-1) % Absolute Neuts (auto) 6.7 (2.0-7.7) X10^3/uL Absolute Lymphs (auto) 0.78 L (0.83-4.51) X10^3/ul Total Counted Not Reportable Sodium (136-145) mmol/L Potassium (3.5-5.1) mmol/L Chloride (98-107) mmol/L Carbon Dioxide (21.0-32.0) mmol/L Anion Gap (5-15) BUN (7-18) mg/dL Creatinine (0.55-1.02) mg/dL Estim Creat Clear Calc ml/min Est GFR (MDRD) Af Amer (>60) mL/min Est GFR (MDRD) Non-Af (>60) mL/min BUN/Creatinine Ratio (10-20) RATIO Glucose (74-106) mg/dL Lactic Acid (0.4-2.0) mmol/L Calcium (8.5-10.1) mg/dL Magnesium (1.6-2.6) mg/dL Troponin I (<0.045) ng/mL Urine Color (Yellow) Urine Clarity (Clear) Urine pH (5.0 - 8.0) Ur Specific [place] (1.002-1.030) Urine Protein (Negative) mg/dl Urine Glucose (UA) (Normal) mg/dl Urine Ketones (Negative) mg/dl Urine Occult Blood (Negative) /ul Urine Nitrite (Negative) Urine Bilirubin (Negative) mg/dL Urine Urobilinogen (Normal) mg/dl Ur Leukocyte Esterase (Negative) /ul Urine RBC (0-5) /hpf Urine WBC (0-5) /hpf Ur Squamous Epith Cells (5-10) /hpf Urine Bacteria (None Seen) /hpf Urine Mucus (<or=2+) /hpf Digoxin (0.80-2.00) ng/mL POC Glucose (70-110) mg/dL Microbiology 08/18/18 18:20 Blood Culture (Wb) - Anticubital Right Blood Culture - Prelim inary No growth in 48 hours. 08/18/18 17:45 Blood Culture (Wb) - Anticubital Left Blood Culture - Preliminary No growth in 48 hours. 08/18/18 17:55 Urine, Catheterized Urine Culture - Final Presumptive C albicans Crisis intervention Operations: None, - Procedures: None Summary of Care Provided: The patient is an 83-year-old female with a past medical history of chronic renal failure stage III, chronic diastolic congestive heart failure, diabetes mellitus type 2, gout, sick sinus syndrome, atrial fibrillation, hyperlipidemia, hypertension, hypothyroidism, GERD, pacemaker placement and pulmonary hypertension who presented to the emergency department at [facility] on 08/18/2018 with her son Richard c/o increased confusion. She complained of not feeling well for the preceding few days. Appetite and intake were decreased for the past month at least. She lives by herself but has an aide and family who check on her frequently. She is still alone much of the time. 2 months prior to admission her son and she can not stop thinking about him. She saw her primary care physician 1 week prior to presenting to the ED and was placed on amoxicillin for suspected urinary tract infection. UA in the emergency department showed greater than 100 WBCs per high-power field with 0-5 squamous epithelial cells. The white blood cell count was normal at 8.3 but there was a left shift present. Hemoglobin and platelets were within normal limits. Potassium was low at 3.4 and the BUN was 12 with a creatinine of 0.73. Lactic acid was normal at 1.3 and the troponin was less than 0.015. She was a dmitted to the hospital with a diagnosis of suspected acute urinary tract infection. the confusion was thought to be due to infection. She was treated with IV Rocephin in the emergency department and this was continued at admission. On 08/19/2018 white blood cell count was 6.2 with a normal differential that was less than 24 hours after presenting to the emergency department. Potassium was low at 3.3 and extra supplementation of potassium was ordered. Magnesium was low at 1.5 and this was supplemented. On 08/20 the potassium was 4.1 and the magnesium was 2.0. BUN was 10 with a creatinine of 0.61. Urine culture was positive for andra albicans only. Blood cultures were negative. Mrs Gomes admits to being anxious and depressed. She worries constantly about her son Richard who is living and worries that something will happen to him. she tells me that her suddenly in the and she was a single mother. 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 She is very sad about losing her son recently and she has been crying at times at home. she has no appetite and has not been eating. She sits in a chair and does not want to do anything. she is not actively suicidal but, she does not care if she lives or dies. We discussed transfer to a geropsych facility so that she can get counselling and have medications adjusted to help with severe depression. She is agreeable to going and her son Richard is also in favor of this. The novelty worker from the counselling center evaluated Mrs. Gomes and agrees she is severely depressed. DC was held on the evening of 08/20 because we did not have the results of the urine culture. Levaquin was discontinued when the urine only grew Andra Albicans and she was given 200 mg of Diflucan. Arrangements were made by the for the patient to be transferred to a geropsych unit. - Physical Exam General: Alert, Cooperative, does not make good eye contact unless I ask her to look at me, she speaks very softly, she is tearful, affect is very flat HEENT: Atraumatic, PERRLA, EOMI Oral: Moist Mucosa Neck: Supple, No JVD, No Nuchal Rigidity, Trachea Midline Lungs: Clear to auscultation Cardiovascular: Regular rate, Regular Rhythm, Normal S1, Normal S2, No murmurs, No Gallop Abdomen: Bowel Sounds Present, Soft, Non Tender, Non-Distended, - - No guarding with palpation Extremities: No clubbing, No cyanosis Skin: No rashes Neurological: Cranial nerves II-XII grossly intact, Neuro grossly intact This note was generated with [employer] dictation software. It may contain incorrect words, spelling, and punctuation that were not noted in checking the note before signing. Patient Problems: Active and Suspected Problems (Last Reviewed 08/18/18 @ 19:25 by John Barrientos DO) UTI (urinary tract infection) (Acute) Metabolic encephalopathy (Acute) - Physical Exam Vital Signs Temp Pulse Resp BP Pulse Ox 97.4 F L 80 16 140/80 H 96 08/21/18 11:09 08/21/18 11:09 08/21/18 11:09 08/21/18 11:09 08/21/18 11:09 Oxygen Delivery Method Room Air Weight: 161 lb 13.109 oz Body Mass Index (BMI) 26.1 Finger Stick Blood Glucose 276 Intake and Output for Last 24 Hours 08/19/18 08/20/18 08/21/18 23:59 23:59 23:59 Intake Total 2988 / 2988 659 / 659 120 / 120 Output Total Balance 2988 / 2988 658 / 658 120 / 120 Microbiology Past 72 Hours 08/18/18 18:20 Blood Culture - Preliminary Blood Culture (Wb) - Anticubital Right No growth in 48 hours. 08/18/18 17:45 Blood Culture - Preliminary Blood Culture (Wb) - Anticubital Left No growth in 48 hours. 08/18/18 17:55 Urine Culture - Final Urine, Catheterized Presumptive C albicans POC Glucose 08/21/18 08/21/18 08/20/18 11:05 06:29 21:18 POC Glucose 208 H 175 H 167 H 08/20/18 17:21 POC Glucose 141 H Home Medications: Medications to take at Discharge Digoxin 125 mcg PO DAILY #30 01/13/17 Levothyroxine [Synthroid] 88 mcg PO DAILY #30 01/13/17 metoprolol tartrate 25 mg tablet 25 mg PO BID 03/24/17 Methenamine Hippurate 1 gm PO BID 05/27/17 Mirtazapine 7.5 mg PO QHS 05/27/17 Linagliptin [Tradjenta] 5 mg PO QHS 04/28/18 Apixaban [Eliquis] 5 mg PO BID 04/30/18 Acetaminophen [Tylenol] 650 mg PO PRN PRN 08/18/18 Amoxicillin 500 mg PO TID 08/18/18 Ascorbic Acid [Vitamin C] 500 mg PO DAILY 08/18/18 Estrogens, Conjugated [Premarin] 1 dose VAGINAL DAILY 08/18/18 Febuxostat [Uloric] 80 mg PO DAILY 08/18/18 L.acidoph,Paracasei, B.lactis [Probiotic] 1 ea PO DAILY 08/18/18 Melatonin 6 mg PO QHS 08/18/18 Pantoprazole Sodium [Protonix] 40 mg PO DAILY 08/18/18 Primary Care Physician: Saroj Fajardo DO [Primary Care Provider] - Disposition: Psych Hospital or Unit Minutes spent on discharge:: 35 Patient Condition:: Stable Medical Necessity - Tobacco Use Smoking Status: Never smoker Tobacco Use: Non-smoker Meaningful Use Info Meaningful Use Diagnoses (Choose all that apply): None applicable Code Visit Inpatient E&M: 03688 Disch Hosp
--- NOTE | 2018-08-21 12:23 | CASEMGMT ---
Social Work Consult: [facility] per Dr. Mcfarlane recommendation. Dr. Mcfarlane informing this certified social workers in health care that Crisis was in to assess patient last night (08/20/18) and that a facility was established, but that Dr. Mcfarlane wanted patient to stay over the night to wait on further medical clearance. Dr. Mcfarlane now reporting that patient is medically cleared. Telephone call to Daniela Mathis. Daniela reporting that assessment was completed last evening and that [facility] was to accept patient, but that since patient was not medically cleared yet patient was not able to be transferred. Daniela stating that [facility] did not hold the bed and the process would need to be started over again. Collaborating with Daniela, this certified social workers in health care to now complete assessment and work towards placement as appropriate. Met with patient in room. Patient [id number] and grandson present. This certified social workers in health care familiar with patient and patient family. Patient sonWolf did pass away from completion of suicide in early June per patient sonRichard's report (this certified social workers in health care spoke with Richard in young after meeting with patient). Patient reporting to be feeling down and to not be sure about my purpose in life. Patient reporting to not be working through Wolf's as patient knows she should. Patient stating to wonder if this life is worth living anymore. Patient denies active thoughts of suicide but presenting with a flat affect and reporting to not be able to work through this. Patient lives at home alone where patient has care givers and family checking in with patient throughout the day/week. Patient family reporting that patient does have positive support in the community. Patient son Richard stating that patient has been more confused lately. Richard stating that patient attempted to use the [employer] as a telephone and that patient was unable to self correct for some time. Patient is wanting to get help. Patient and Richard are aware that Dr. Mcfarlane is recommending a [facility] facility placement for patient to be able to assess patient needs further. Patient becoming tearful while speaking of the recent lost of patient sonMarilee Ramos stating to want to ensure that patient mental health is good and Richard is wanting to see my mom get help. Patient is also agreeable to help and [facility]. Support provided to patient and patient family. Telephone call to Luna Adams. Luna stating to still have previous referral but to need updated medical records. This certified social workers in health care faxing clinical information. Luna to get back to this certified social workers in health care. PLAN: Transfer to [facility] facility pending approval. Julio COLE, CANDY
[2018-08-21] MEDS: Fluconazole 100 MG Tablet 200 MG PO (13:47)
[2018-08-21] MEDS: Estrogens,Conj. 1 Tube 1 DOSE VAGINAL (13:48)
--- NOTE | 2018-08-21 16:09 | NURSING ---
called report to [facility], notified dr herring that pt accepted for transport to [facility]. notified son that pt going to be transferred tonight.
--- NOTE | 2018-08-21 16:10 | CASEMGMT ---
Social Work Telephone call from RNYareli. Yareli reporting to have received phone call from [facility] and [facility] is accepting patient. Dr. Shanks is accepting physician and patient is to admit to the [facility] unit room 296. Yareli notifying patient son. This manager social services notified patient. All agreeable to plan. Julio COLE, CANDY
[2018-08-21 16:36] LABS: Bedside Glucose 164 mg/dL (70-110)
--- NOTE | 2018-08-23 09:01 | CASEMGMT ---
Social Work Note Pt went to [facility] over the weekend. SW placed a call to Ginny in TCU and updated her of this. Karma Ortez TELESALES PROFESSIONAL, HEALTHCARE SALES REPRESENTATIVE
== END 2018-08-21 18:53 | DRG 757 ==
LOC: ED 18:03 → MS3 19:31
PROVIDERS: Emergency Provider Emergency Medicine; Family Provider Family Medicine; PCP Family Medicine; Visit Provider Internal Medicine
DX: B37.49 Other urogenital candidiasis (principal); G93.41 Metabolic encephalopathy; I50.32 Chronic diastolic (congestive) heart failure; I13.0 Hypertensive heart and chronic kidney disease with heart failure and stage 1 through stage 4 chronic kidney disease, or unspecified chronic kidney disease; I42.9 Cardiomyopathy, unspecified; E11.65 Type 2 diabetes mellitus with hyperglycemia; E83.42 Hypomagnesemia; E87.6 Hypokalemia; M10.9 Gout, unspecified; Z66 Do not resuscitate; E11.22 Type 2 diabetes mellitus with diabetic chronic kidney disease; K21.9 Gastro-esophageal reflux disease without esophagitis; I27.20 Pulmonary hypertension, unspecified; E78.5 Hyperlipidemia, unspecified; F32.9 Major depressive disorder, single episode, unspecified; E03.9 Hypothyroidism, unspecified; I48.91 Unspecified atrial fibrillation; N18.3 Chronic kidney disease, stage 3 (moderate); Z79.84 Long term (current) use of oral hypoglycemic drugs; Z79.01 Long term (current) use of anticoagulants; Z95.0 Presence of cardiac pacemaker; Z87.440 Personal history of urinary (tract) infections
CPT/HCPCS: 36415; 71045; 80048; 80162; 81001; 82962; 83605; 83735; 84484; 85025; 87040; 87086; 87088; 93005; 97116; 97162; 97166; 97530; 97802; 99285; J7030; A4216; J2405

== ENCOUNTER 2018-09-06 13:24 | Observation (INO) | payer MEDICARE, SELFPAY ==
[2018-09-06 13:24] VITALS: BMI 27.4
[2018-09-06 13:25] VITALS: BP 121/77; PULSE 80; RESP 16; TEMP 36.7; O2SAT 96; BMI 25.8
[2018-09-06] MEDS: 0.9% Normal Saline 1,000 ML 1000 ML IV (14:02)
[2018-09-06 14:07] LABS: Absolute Lymphocyte Count 0.51 X10^3/uL (0.83-4.51); Absolute Neutrophil Count 13.2 X10^3/uL (2.0-7.7); Basophil# 0.02 X10^3/uL; Basophil% 0.1 % (0-1); Eosinophil# 0.13 X10^3/uL; Eosinophils% 0.9 % (0-5); Hematocrit 46.2 % (37-47); Hemoglobin 15.3 g/dL (12.0-15.0); Lymphocyte # 0.51 X10^3/ul (4.0); Lymphocyte % 3.4 % (19-41); Mean Corp Hgb Conc 33.1 g/dL (32-36); Mean Corpuscular Hgb 28.8 pg (27.0-32.0); Mean Corpuscular Volume 86.8 fL (81-99); Mean Platelet Vol. 10.5 fl (6.2-12.0); Monocyte# 1.12 X10^3/uL; Monocyte% 7.4 % (0-10); NRBC Flagged by Analyzer 0 % (0-5); Neutrophil # 13.24 X10^3/uL (2.7-7.7); Neutrophil % 87.9 % (47-70); POSITIVE DIFFERENTIAL YES; Platelet Count 147 K/mm3 (150-450); RBC Distribution Width CV 13.7 % (11.6-14.6); RBC Distribution Width SD 43.5 fl (35.1-43.9); Red Blood Count 5.32 M/mm3 (4.2-5.4); White Blood Count 15.1 K/mm3 (4.4-11.0)
[2018-09-06 14:19] LABS: Anion Gap 4 (5-15); BUN 28 mg/dL (7-18); BUN/Creat Ratio 37.5 RATIO (10-20); Calcium,Total 9.6 mg/dL (8.5-10.1); Chloride 103 mmol/L (98-107); Creatinine, Serum 0.75 mg/dL (0.55-1.02); EST Glomerular Filtration Rate 79 mL/min (>60); Est Glom Filt Rate - Afr Amer 95 mL/min (>60); Glucose 252 mg/dL (74-106); Potassium 3.9 mmol/L (3.5-5.1); Sodium Level 135 mmol/L (136-145)
[2018-09-06 14:29] LABS: Lactic Acid 0.9 mmol/L (0.4-2.0)
--- NOTE | 2018-09-06 15:02 | ED.DCSUM_ITS ---
- ER Visit Summary Date of Service: 09/06/18 Chief Complaint: [Diarrhea] History of Present Illness: The patient is a 83 F [presents to the emergency department with complaint of diarrhea today. Patient has had 8 or 9 episodes of watery stool since this morning. Patient feels generally weak and had some l ightheadedness. Patient was recently hospitalized at [facility]. Patient was on antibiotics 10 days ago for urinary tract infection. She denies any fever. She denies any abdominal pain currently. Patient also 5 days ago developed an ulcer on her right heel. Patient had nausea but no vomiting. She denies any blood in her stool or black tarry stool.] Physical Examination: [HEENT-PERRLA, EOMI. Cranial nerves II through XII grossly intact. TMs clear. Mucous membranes moist. No adenopathy. Cardiovascular-regular rate and rhythm without murmur or ectopy Lungs-clear to auscultation, chest wall stable without crepitus or subcu emphysema Abdomen-normoactive bowel sounds, soft, nontender, no rebound or rigidity, no peritoneal signs. Extremities-intact ?4, normal range of motion, normal pulses, atraumatic] Test Results: [CBC with differential obtained showed a white count of 15.1, hemoglobin 15, hematocrit 46, platelets 147. Chemistries unremarkable. Lactate was 0.9. Stool was ordered for enteric pathogens as well as C. difficile.] Emergency Department Course and Treatment: [Treated with normal saline.] Treatment Plan: [Admit for IV hydration. Patient will have to be evaluated for C. difficile.] Disposition: [Admit] Impression: [Diarrhea Leukocytosis Dehydration] This note was generated with [employer] dictation software. It may contain incorrect words, spelling, and punctuation that were not noted in review of the chart prior to signing ED Disposition - Plan for ED Patient: Referrals: Saroj Fajardo DO [Primary Care Provider] -
--- NOTE | 2018-09-06 15:27 | NURSING ---
MED SURG DIARRHEA, RT HEEL ULCER KAMILA
[2018-09-06 16:40] VITALS: BP 130/64; RESP 16; O2SAT 92
--- NOTE | 2018-09-06 17:15 | PCM.HP.STD ---
Problem List (1) Acute gastroenteritis Status: Acute (2) Blister of right heel Status: Acute (3) Elevated lactic acid level Status: Acute (4) CKD (chronic kidney disease) stage 3, GFR 30-59 ml/min Status: Chronic (5) Fall Status: Acute (6) Chronic kidney disease Status: Chronic (7) Chronic diastolic heart failure Status: Chronic (8) Diabetes mellitus Status: Chronic (9) Gout Status: Chronic (10) Recurrent UTI Status: Chronic (11) UTI (urinary tract infection) Status: Acute (12) Metabolic encephalopathy Status: Acute (13) Dyspnea, unspecified Status: Acute (14) Palpitations Status: Acute (15) Syncope and collapse Status: Acute (16) Chest pain Status: Acute (17) Fatigue Status: Acute (18) Fracture of right femur Status: Acute (19) Sick sinus syndrome Status: Chronic (20) Atrial fibrillation Status: Chronic Qualifiers: (21) Cardiomyopathy, nonischemic Status: Chronic (22) HLD (hyperlipidemia) Status: Chronic Qualifiers: (23) HTN (hypertension) Status: Chronic Qualifiers: (24) Hypothyroidism Status: Chronic Qualifiers: (25) Hypokalemia Status: Chronic (26) Chronic diastolic (congestive) heart failure Status: Chronic (27) Edema Status: Acute (28) Acute deep vein thrombosis (DVT) of left lower extremity Status: Acute (29) Iron deficiency anemia Status: Chronic Qualifiers: (30) GERD (gastroesophageal reflux disease) Status: Chronic Qualifiers: (31) Cardiac pacemaker in situ Status: Chronic (32) Hypotension Status: Acute Qualifiers: (33) UTI (urinary tract infection) Status: Acute Qualifiers: (34) DM2 (diabetes mellitus, type 2) Status: Chronic (35) CHF (congestive heart failure) Status: Chronic Qualifiers: (36) Pulmonary hypertension Status: Chronic History of Present Illness Date of Admission: 09/06/18 Chief Complaint: Nausea and diarrhea for 2 days The patient is a 83 year old F with a recent hospitalization and discharged from [facility] after she was admitted for UTI and depression was discharged on amoxicillin. She completed amoxicillin for 10 days about 10 days ago. Started having loose bowel movement yesterday but today she had 9 watery diarrhea along with nausea. She denies abdominal pain or vomiting. She denies melena, hematochezia or hematemesis. She also feels lightheaded and dizziness. Besides that, she is very weak and unable to do activities of daily living since her discharge. She also has right heel blister which burst this morning. This does not look infected. [] Past Medical History Past Medical History (Chronic Problems): Chronic Problems (Last Reviewed 08/18/18 @ 19:25 by John Barrientos DO) CKD (chronic kidney disease) stage 3, GFR 30-59 ml/min (Chronic) Chronic kidney disease (Chronic) Chronic diastolic heart failure (Chronic) Diabetes mellitus (Chronic) Gout (Chronic) Recurrent UTI (Chronic) Sick sinus syndrome (Chronic) Atrial fibrillation (Chronic) Cardiomyopathy, nonischemic (Chronic) HLD (hyperlipidemia) (Chronic) HTN (hypertension) (Chronic) Hypothyroidism (Chronic) Hypokalemia (Chronic) Chronic diastolic (congestive) heart failure (Chronic) Iron deficiency anemia (Chronic) GERD (gastroesophageal reflux disease) (Chronic) Cardiac pacemaker in situ (Chronic) DM2 (diabetes mellitus, type 2) (Chronic) CHF (congestive heart failure) (Chronic) Pulmonary hypertension (Chronic) Medical History: Medical History (Last Reviewed 08/18/18 @ 19:25 by John Barrientos DO) Fracture of right femur (Acute) S72.91XA Sick sinus syndrome (Chronic) I49.5 Atrial fibrillation (Chronic) I48.91 Cardiomyopathy, nonischemic (Chronic) I42.8 HLD (hyperlipidemia) (Chronic) E78.5 HTN (hypertension) (Chronic) I10 Hypothyroidism (Chronic) E03.9 Hypokalemia (Chronic) E87.6 Chronic diastolic (congestive) heart failure (Chronic) I50.32 Edema (Acute) R60.9 Acute deep vein thrombosis (DVT) of left lower extremity (Acute) I82.402 Iron deficiency anemia (Chronic) D50.9 GERD (gastroesophageal reflux disease) (Chronic) K21.9 Cardiac pacemaker in situ (Chronic) Z95.0 Hypotension (Acute) I95.9 UTI (urinary tract infection) (Acute) N39.0 DM2 (diabetes mellitus, type 2) (Chronic) E11.9 CHF (congestive heart failure) (Chronic) I50.9 Pulmonary hypertension (Chronic) I27.2 Acute kidney injury N17.9 Chronic diarrhea K52.9 Cystitis N30.90 Dementia F03.90 Depression F32.9 Encephalopathy G93.40 Gout M10.9 Postoperative anemia D64.9 H/O: hysterectomy Z90.710 Acute kidney injury (Inactive) N17.9 Afib (Inactive) I48.91 Chronic diarrhea (Inactive) K52.9 Cystitis (Inactive) N30.90 no culture obtained DVT of axillary vein, acute left (Inactive) I82.A12 Dementia (Inactive) F03.90 Depression (Inactive) F32.9 Diarrhea (Inactive) R19.7 Dvt femoral (deep venous thrombosis) (Inactive) I82.419 left leg Encephalopathy (Inactive) G93.40 Fall (Inactive) W19.XXXA Gout (Inactive) M10.9 Muscle spasm (Inactive) M62.838 Pacemaker (Inactive) Z95.0 Postoperative anemia (Inactive) D64.9 Thrush (Inactive) B37.0 Allergies amoxicillin [From Augmentin] Allergy (Verified 08/18/18 17:17) Other clavulanic acid [From Augmentin] Allergy (Verified 08/18/18 17:17) Other exenatide [From Byetta] Allergy (Verified 08/18/18 17:17) Other Penicillins [PCN] Allergy (Verified 08/18/18 17:17) Other simvastatin [From Zocor] Adverse Reaction (Severe, Verified 08/18/18 17:17) Myalgias prednisone Adverse Reaction (Unknown, Verified 08/18/18 17:17) Unknown metformin Adverse Reaction (Verified 08/18/18 17:17) Rash crestor Adverse Reaction (Intermediate, Uncoded 08/18/18 17:17) myalgia Home Medications: Ambulatory Orders Medication Instructions Recorded Linagliptin [Tradjenta] 5 mg PO QHS 04/28/18 Apixaban [Eliquis] 5 mg PO BID 04/30/18 Acetaminophen [Tylenol] 325 mg PO DAILY PRN PRN 08/18/18 Ascorbic Acid [Vitamin C] 500 mg PO DAILY 08/18/18 Estrogens, Conjugated [Premarin] 1 dose VAGINAL DAILY 08/18/18 Febuxostat [Uloric] 80 mg PO DAILY 08/18/18 L.acidoph,Paracasei, B.lactis 1 ea PO DAILY 08/18/18 [Probiotic] Melatonin 6 mg PO QHS 08/18/18 Pantoprazole Sodium [Protonix] 40 mg PO DAILY 08/18/18 Digoxin 125 mcg PO DAILY 09/06/18 Escitalopram Oxalate [Lexapro] 5 mg PO DAILY 09/06/18 Levothyroxine [Synthroid] 88 mcg PO DAILY@0700 09/06/18 Methenamine Hippurate [Hiprex] 1 gm PO BID 09/06/18 Metoprolol Tartrate [Lopressor 25 mg PO BID 09/06/18 (beta chanel)] Mirtazapine 15 mg PO QHS 09/06/18 Multivitamin with Minerals 1 tab PO DAILY 09/06/18 [Multiple Vitamin] Surgical History: Surgical History (Last Reviewed 08/18/18 @ 19:25 by John Barrientos DO) History of bilateral knee replacement Z96.653 History of cholecystectomy Z90.49 Presence of vena cava filter Z95.828 implantation pacemakr pacemaker generator change Surgical History: cholecystectomy, hysterectomy, pacemaker implantation, total knee arthroplasty - Bilateral., - - IVC filter, pacemaker placement, right hip fracture repair. 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 Review of Systems Constitutional: Reports: Chills, Malaise, Weakness. Denies: Fever, Weight Change HEENT: Denies: Head Aches, Sinus Congestion, Sinus Drainage Cardiovascular: Denies: Chest Pain, Palpitations Respiratory: Denies: Cough, Shortness of breath at rest, Sputum production Gastrointestinal: Reports: Diarrhea, Nausea. Denies: Abdominal Pain, Hematemesis, Hematochezia, Melena, Vomiting Genitourinary: Reports: - - Lower urine tract symptoms of burning micturition increased frequency urgency have resolved.. Denies: Dysuria, Frequency, Urgency Musculoskeletal: Reports: Joint Pain. Denies: Joint Tenderness Skin: Denies: Rash, Wounds Neurological: Reports: Balance problems, - - Weakness of both lower legs.. Denies: Focal weakness, Numbness, Tingling Psychiatric: Denies: Anxiety, Depression, Homicidal Ideations, Suicidal Ideations Hematologic/ Lymphatic: Denies: Easy Bruising, Easy Bleeding VTE Information - Inpt Only VTE Present on Admission: No VTE Mechan Device Prophylaxis: None VTE Pharm Prophylaxis ordered?: Yes Patient Problems: Active and Suspected Problems (Last Reviewed 08/18/18 @ 19:25 by John Barrientos DO) Acute gastroenteritis (Acute) Blister of right heel (Acute) - Physical Exam General: Alert, Oriented x3, Cooperative HEENT: Atraumatic, PERRLA, EOMI, Normocephalic Oral: No Gingival or Mucosal Lesions/ Ulcerations, Dry Mucosa Neck: Supple, No JVD, Negative Carotid Bruits Lungs: Clear to auscultation, Normal air movement, No rhonchi, No wheeze, No rales Cardiovascular: Regular rate, Regular Rhythm, Normal S1, Normal S2, No murmurs Abdomen: Bowel Sounds Present, Soft, Non Tender, Non-Distended Extremities: Capillary Refill Less than 3 Seconds, Edema - Mild ankle edema. Skin: Ulcer/ Wound - Blister present over right heel which is burst open. No localized signs of redness, pain, tenderness or cellulitis. This blister may be be to decubitus ulcer Musculoskeletal: No Tenderness to Palpation of Joints or Extremities, Arthritic Changes, Muscle Wasting, - - Decreased ADL. Neurological: Cranial nerves II-XII grossly intact Psych/Mental Status: Normal Affect, Appropriate Vital Signs Temp Pulse Resp BP Pulse Ox 98.1 F 80 16 130/64 H 92 09/06/18 13:25 09/06/18 13:25 09/06/18 16:40 09/06/18 16:40 09/06/18 16:40 Oxygen Flow Rate (L/min) 2 Oxygen Delivery Method Nasal Cannula Weight: 160 lb Body Mass Index (BMI) 25.8 Finger Stick Blood Glucose 276 Laboratory Tests Past 24 Hrs 09/06/18 09/06/18 09/06/18 14:00 14:00 14:00 WBC 15.1 H RBC 5.32 Hgb 15.3 H Hct 46.2 MCV 86.8 MCH 28.8 MCHC 33.1 RDW Std Deviation 43.5 RDW Coeff of Rema 13.7 Plt Count 147 L MPV 10.5 Immature Gran % (Auto) 0.300 Neut % (Auto) 87.9 H Lymph % (Auto) 3.4 L [place] % (Auto) 7.4 Eos % (Auto) 0.9 Baso % (Auto) 0.1 Absolute Neuts (auto) 13.2 H Absolute Lymphs (auto) 0.51 L Absolute Nucleated RBC 0.00 Nucleated RBC % 0 Differential Comment COMMENT Diff Path Review May foll Sodium 135 L Potassium 3.9 Chloride 103 Carbon Dioxide 28.0 Anion Gap 4 L BUN 28 H Creatinine 0.75 Estim Creat Clear Calc 39.90 Est GFR (MDRD) Af Amer 95 Est GFR (MDRD) Non-Af 79 BUN/Creatinine Ratio 37.5 H Glucose 252 H Lactic Acid 0.9 Calcium 9.6 Assessment/Plan All Active Problems (Last Reviewed 08/18/18 @ 19:25 by John Barrientos DO) Elevated lactic acid level (Acute) Fall (Acute) UTI (urinary tract infection) (Acute) Metabolic encephalopathy (Acute) Acute gastroenteritis (Acute) Blister of right heel (Acute) Dyspnea, unspecified (Acute) Palpitations (Acute) Syncope and collapse (Acute) Chest pain (Acute) Fatigue (Acute) Fracture of right femur (Acute) Edema (Acute) Acute deep vein thrombosis (DVT) of left lower extremity (Acute) Hypotension (Acute) UTI (urinary tract infection) (Acute) The patient is a 83 year old F with a recent hospitalization and discharged from [facility] after she was admitted for UTI and depression was discharged on amoxicillin. She completed amoxicillin for 10 days about 10 days ago. Started having loose bowel movement yesterday but today she had 9 watery diarrhea along with nausea. She denies abdominal pain or vomiting. She denies melena, hematochezia or hematemesis. She also feels lightheaded and dizziness. Besides that, she is very weak and unable to do activities of daily living since her discharge. She also has right heel blister which burst this morning. This does not look infected. [] In ED, her vitals were stable. Basic labs shows mild hyponatremia, BUN 28 creatinine 0.75. H&H was 15.3/46.2 and leukocytosis 15,000 with left shift. Neutrophils 88%. Platelet count 147,000. 1. Acute gastroenteritis with suspicion of possible C. difficile/viral: Patient is being admitted on MedSurg floor. IV fluid, NS resuscitation with normal saline. Stool for C. difficile, enteric bacterial D panel, occult blood and leukocytes ordered. Monitor intake and output. She had colonoscopy long time ago probably about 10 years ago and does not remember the details. 2. Mild prerenal azotemia with hyponatremia: Secondary to dehydration and hypovolemia. IV fluid resuscitation. 3. Right heel ruptured blister suggestive of stage II decubitus ulcer: Patient usually will you just walker but has not been moving after discharge from [facility]. PT and OT ordered. Wound nurse to further see the patient. Bilateral lower legs needs offloading. Dry to wet dressing. She also has decreased sensation to touch and pressure on the right leg. 4. Cardiac comorbidities include sick sinus syndrome status post pacemaker, chronic A. fib on Eliquis, chronic heart failure with preserved EF: She follows Dr. Bardales for pacemaker. Cardiac medications continued. 5. Diabetes mellitus type 2: On Accu-Chek essences cover with NovoLog sliding scale. 6. 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 Prophylaxis: Patient is on Eliquis 5 mg twice daily. Goal of life/advanced directive/MOLST: Discussed with the patient's son Mr. Richard Gomes. Out of different option given, patient and his son agree for DNR CC arrest. He has previous DNRCC-Arrest in the medical record. Patient is okay with the oxygen mask or BiPAP if needed. Patient does not want artificial life support including intubation, tube feed, ventilator and/chest compression. Patient is DNR CC Arrest. Total time spent in [id number]-[id number] encounter in discussion of advanced directive 18 minutes. Laboratory Results 09/06/18 14:00: WBC 15.1 H, RBC 5.32, Hgb 15.3 H, Hct 46.2, MCV 86.8, MCH 28.8, MCHC 33.1, RDW Std Deviation 43.5, RDW Coeff of Rema 13.7, Plt Count 147 L, MPV 10.5, Immature Gran % (Auto) 0.300, Neut % (Auto) 87.9 H, Lymph % (Auto) 3.4 L, [place] % (Auto) 7.4, Eos % (Auto) 0.9, Baso % (Auto) 0.1, Absolute Neuts (auto) 13.2 H, Absolute Lymphs (auto) 0.51 L, Absolute Nucleated RBC 0.00, Nucleated RBC % 0, Differential Comment COMMENT, Diff Path Review June09/06/18 14:00: Sodium 135 L, Potassium 3.9, Chloride 103, Carbon Dioxide 28.0, Anion Gap 4 L, BUN 28 H, Creatinine 0.75, Estim Creat Clear Calc 39.90, Est GFR (MDRD) Af Amer 95, Est GFR (MDRD) Non-Af 79, BUN/Creatinine Ratio 37.5 H, Glucose 252 H, Calcium 9.6 09/06/18 14:00: Lactic Acid 0.9 Code Visit OBSV E&M: 03769 Initial observation care L3 Procedures: 78140 Advncd Care Plan 30 Min
[2018-09-06 17:16] VITALS: BP 117/63; PULSE 75; RESP 18; TEMP 36.2; O2SAT 97
[2018-09-06 17:25] VITALS: BMI 24.3
[2018-09-06 17:35] VITALS: BMI 24.3
--- NOTE | 2018-09-06 17:40 | EKG12_ITS ---
Test Reason : ADMISSION EKG Blood Pressure : / mmHG Vent. Rate : 076 BPM Atrial Rate : 076 BPM P-R Int : 160 ms QRS Dur : 178 ms QT Int : 434 ms P-R-T Axes : 051 -54 112 degrees QTc Int : 488 ms Atrial-sensed ventricular-paced rhythm in a pattern of bigeminy Abnormal ECG When compared with ECG of 18-AUG-2018 17:47, Vent. rate has decreased BY 7 BPM Confirmed by ARTURO SAEZ, FRANK ([id number]), tape editor YURY HERNANDEZ ([id number]) on 09/10/2018 9:52:00 AM Referred By: DR TREVIÑO Confirmed By:DEANA MORRIS MD
[2018-09-06] MEDS: 0.9% Normal Saline 1,000 ML 100 ML IV (18:15)
[2018-09-06 18:18] LABS: Magnesium 1.5 mg/dL (1.6-2.6)
[2018-09-06 18:26] LABS: Bedside Glucose 177 mg/dL (70-110)
[2018-09-06 20:20] VITALS: O2SAT 97
[2018-09-06 22:45] VITALS: BP 129/66; PULSE 86; RESP 16; TEMP 36.8; O2SAT 92
[2018-09-06 22:56] LABS: Bedside Glucose 170 mg/dL (70-110)
[2018-09-06 23:01] VITALS: BP 129/66; PULSE 86
[2018-09-06] MEDS: Mirtazapine 15 MG Tablet PO (23:01)
[2018-09-06] MEDS: Insulin Lispro 100 UNIT/ML INSULN.PEN SC (23:01)
[2018-09-06] MEDS: Metoprolol Tartrate 25 MG Tablet PO (23:01)
[2018-09-06] MEDS: LINAGLIPTIN 5 MG TABLET PO (23:01)
[2018-09-07] VITALS (11 sets, daily range): BP systolic 99–148; BP diastolic 56–74; PULSE 67–91; RESP 16–18; TEMP 36.4–36.9; O2SAT 91–98
[2018-09-07] MEDS: MELATONIN 3 MG TABLET 6 MG PO ×2 (00:53→20:44)
[2018-09-07] MEDS: Levothyroxine 88 MCG Tablet PO (06:29)
[2018-09-07 06:46] LABS: Bedside Glucose 105 mg/dL (70-110)
[2018-09-07 07:09] LABS: Absolute Lymphocyte Count 1.11 X10^3/uL (0.83-4.51); Absolute Neutrophil Count 5.8 X10^3/uL (2.0-7.7); Basophil# 0.02 X10^3/uL; Basophil% 0.3 % (0-1); Eosinophil# 0.26 X10^3/uL; Eosinophils% 3.3 % (0-5); Hematocrit 40.8 % (37-47); Hemoglobin 13.3 g/dL (12.0-15.0); Lymphocyte # 1.11 X10^3/ul (4.0); Lymphocyte % 13.9 % (19-41); Mean Corp Hgb Conc 32.6 g/dL (32-36); Mean Corpuscular Hgb 28.6 pg (27.0-32.0); Mean Corpuscular Volume 87.7 fL (81-99); Mean Platelet Vol. 10.3 fl (6.2-12.0); Monocyte# 0.82 X10^3/uL; Monocyte% 10.3 % (0-10); NRBC Flagged by Analyzer 0 % (0-5); Neutrophil # 5.76 X10^3/uL (2.7-7.7); Neutrophil % 71.8 % (47-70); Platelet Count 133 K/mm3 (150-450); RBC Distribution Width CV 14.1 % (11.6-14.6); RBC Distribution Width SD 45.2 fl (35.1-43.9); Red Blood Count 4.65 M/mm3 (4.2-5.4)
[2018-09-07 07:27] LABS: Anion Gap 4 (5-15); BUN 21 mg/dL (7-18); BUN/Creat Ratio 33.7 RATIO (10-20); Calcium,Total 8.8 mg/dL (8.5-10.1); Chloride 109 mmol/L (98-107); Creatinine, Serum 0.62 mg/dL (0.55-1.02); EST Glomerular Filtration Rate 97 mL/min (>60); Est Glom Filt Rate - Afr Amer 117 mL/min (>60); Glucose 118 mg/dL (74-106); Potassium 3.7 mmol/L (3.5-5.1); Sodium Level 138 mmol/L (136-145)
[2018-09-07] MEDS: APIXABAN 5 MG TABLET PO ×2 (08:24→17:39)
[2018-09-07] MEDS: Multivitamins,Ther W-Minerals Tablet 1 TABLET PO (08:24)
[2018-09-07] MEDS: Ascorbic Acid 500 MG Tablet PO (10:15)
[2018-09-07] MEDS: Febuxostat 40 MG TABLET 80 MG PO (10:15)
[2018-09-07] MEDS: Pantoprazole Sodium 40 MG Tablet PO (10:15)
[2018-09-07] MEDS: Digoxin 125 MCG Tablet PO (10:16)
[2018-09-07] MEDS: Escitalopram Oxalate 10 MG Tablet 5 MG PO (10:17)
[2018-09-07] MEDS: Metoprolol Tartrate 25 MG Tablet PO ×2 (10:17→20:35)
--- NOTE | 2018-09-07 10:38 | NURSING ---
wound photo: right heel
[2018-09-07 11:25] LABS: Bedside Glucose 182 mg/dL (70-110)
[2018-09-07 11:48] LABS: Pathologist Review Reviewed
[2018-09-07] MEDS: Insulin Lispro 100 UNIT/ML INSULN.PEN SC (12:10)
--- NOTE | 2018-09-07 12:31 | CASEMGMT ---
Per physician note patient has been weak and unable to do her daily care. SW met with patient, introduced self and role at [facility]. SW let her know physical therapy will be coming in to see her while she is here. She asked why therapy was going to see her. SW explained they see a lot of patient's to assess and make sure they are okay to return home safely. SW asked her how things have been going at home. She said she is fine. 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 SW asked if she feels she is able to return home without any issues. She said she feels fine returning home. SW review PT/OT evaluations once they are done to see how patient does. Hilda GUPTA MSW
[2018-09-07] MEDS: Glucerna Shake 120 ML LIQUID PO ×3 (13:53→20:34)
--- NOTE | 2018-09-07 14:29 | CASEMGMT ---
Patient has a Healthcare POA and Healthcare LW on file at [facility]. Hilda GUPTA EXTRACT OPERATOR
--- NOTE | 2018-09-07 15:08 | CASEMGMT ---
Addendum entered by Hilda Crane 09/07/18 15:25: Patient's name is on the TCU list in the event a bed would open up. Hilda COLE Original Note: SW spoke with patient's son as SW learned after talking with patient she has Dementia. He wanted patient to go to TCU. SW told him they are full. SW told him the other 2 somewhat local facilities were that were in network, [facility] [place]. He said he will talk with patient this evening and then talk with SW tomorrow. Hilda COLE
--- NOTE | 2018-09-07 15:43 | CASEMGMT ---
Intro role of CM to patient and [facility] form explained re: Observation status for treatment of gastoenteritis. Explained hospitalization will be paid per? insurance policy for Outpatient billing?and condition will continue to be evaluated for Inpt necessity. Also let pt know that [facility] sends paper in the billing packet with their phone number if questions arise. Discussed Pharmacy section of [facility] form and self administered medication guideline.? Pt verbalizes understanding and does not have further questions. Form signed and placed in chart, copy to pt. MARIA ALEJANDRA HAMMER BSN CM
[2018-09-07 16:50] LABS: Bedside Glucose 110 mg/dL (70-110)
--- NOTE | 2018-09-07 18:29 | PN_ITS ---
Patient Problems: Active and Suspected Problems (Last Reviewed 08/18/18 @ 19:25 by John Barrientos DO) Acute gastroenteritis (Acute) Blister of right heel (Acute) Subjective: Patient was seen and examined today, she seemed confused and told the social workers she was currently working at a job and she looks forward to returning to that job when she got out of the hospital, according to vp digital marketing social media and crm, patient's son wants the patient to do go to a retirement facility for inpatient rehab services. Patient denies any diarrhea today, she has no complaints of any shortness of breath or chest discomfort. Patient's stool was negative for enteric pathogens and C. difficile toxin. It was positive for occult blood. Patient's hemoglobin however is normal. I reexamined the patient earlier this evening, her family was in the room including her son, her son denies that the patient has any cognitive impairment, I discussed going to a retirement facility with the patient and she did not seem opposed to this. The son has to make a determination what facility he would like to try to get her into, TCU is currently full and cannot take the patient. - Physical Exam General: Alert, Cooperative, No apparent distress, Well developed HEENT: Atraumatic, PERRLA, EOMI, Normocephalic Oral: Moist Mucosa Neck: Supple, Trachea Midline, Thyroid Normal Size and Texture Lungs: Clear to auscultation, Normal air movement, No rhonchi, No wheeze, No rales Cardiovascular: Regular rate, Regular Rhythm, Normal S1, Normal S2, No murmurs, PMI Normal, No rub noted, No Gallop Abdomen: Bowel Sounds Present, Soft, Non Tender, Non-Distended Extremities: No clubbing, No cyanosis, No edema, Capillary Refill Less than 3 Se conds, - - There is a pressure injury to the right heel consisting of a blister with fluid present, this cannot be staged Skin: No rashes, No breakdown, - - Again, fluid-filled blister is noted over the patient's right heel approximately 3 to 4 cm in diameter by 4 cm in length Neurological: Cranial nerves II-XII grossly intact, Neuro grossly intact, Sensory exam intact to light touch and pain, Coordination normal Psych/Mental Status: Appropriate, Flat Affect Vital Signs Temp Pulse Resp BP Pulse Ox 97.5 F L 76 16 112/56 L 98 09/07/18 15:07 09/07/18 15:07 09/07/18 15:07 09/07/18 15:07 09/07/18 15:07 Oxygen Flow Rate (L/min) 2 Oxygen Delivery Method Room Air Weight: 68.3 kg Body Mass Index (BMI) 24.3 Finger Stick Blood Glucose 276 Intake and Output for Last 24 Hours 09/05/18 09/06/18 09/07/18 23:59 23:59 23:59 Intake Total 100 / 220 2280 / 2280 Output Total Balance 100 / 220 2279 / 2279 Microbiology Past 72 Hours 09/06/18 23:00 Enteric Bacteriology - Final Stool 09/06/18 23:00 Stool Lactoferrin - Final Interface Orders 09/06/18 23:00 Stool Occult Blood (MAHOGANY) - Final Interface Orders Occult Blood Positive 09/06/18 23:00 C. difficile DNA Amplification - Final Stool Laboratory Tests Past 24 Hrs 09/06/18 09/07/18 09/07/18 14:00 06:45 06:45 WBC 8.0 RBC 4.65 Hgb 13.3 Hct 40.8 MCV 87.7 MCH 28.6 MCHC 32.6 RDW Std Deviation 45.2 H RDW Coeff of Rema 14.1 Plt Count 133 L MPV 10.3 Immature Gran % (Auto) 0.400 Neut % (Auto) 71.8 H Lymph % (Auto) 13.9 L Dolores % (Auto) 10.3 H Eos % (Auto) 3.3 Baso % (Auto) 0.3 Absolute Neuts (auto) 5.8 Absolute Lymphs (auto) 1.11 Absolute Nucleated RBC 0.00 Nucleated RBC % 0 Diff Path Review Reviewed Sodium 138 Potassium 3.7 Chloride 109 H Carbon Dioxide 25.0 Anion Gap 4 L BUN 21 H Creatinine 0.62 Estim Creat Clear Calc 39.90 Est GFR (MDRD) Af Amer 117 Est GFR (MDRD) Non-Af 97 BUN/Creatinine Ratio 33.7 H Glucose 118 H Calcium 8.8 Magnesium 2.0 POC Glucose 09/07/18 09/07/18 09/07/18 16:48 11:20 06:36 POC Glucose 110 182 H 105 09/06/18 22:42 POC Glucose 170 H Medical Necessity - Tobacco Use Smoking Status: Never smoker Assessment/Plan All Active Problems (Last Reviewed 08/18/18 @ 19:25 by John Barrientos DO) Elevated lactic acid level (Resolved) Fall (Resolved) UTI (urinary tract infection) (Resolved) Metabolic encephalopathy (Resolved) Acute gastroenteritis (Acute) Blister of right heel (Acute) Dyspnea, unspecified (Resolved) Palpitations (Resolved) Syncope and collapse (Resolved) Chest pain (Resolved) Fatigue (Resolved) Fracture of right femur (Resolved) Edema (Resolved) Acute deep vein thrombosis (DVT) of left lower extremity (Resolved) Hypotension (Resolved) UTI (urinary tract infection) (Resolved) #1 acute gastroenteritis-this appears to have resolved at this time-continue present care #2 generalized debility-PT and OT are seeing the patient, she will need to go to a retirement facility for short-term rehab #3 pressure injury to right heel-wound care nurse is seeing the patient #4 chronic atrial fibrillation-patient has a pacer and is currently paced, she is on Eliquis #5 type 2 diabetes-continue to monitor blood sugars #6 depression-patient will ultimately need her Lexapro increased Code Visit OBSV E&M: 75192 Subsequent observation care L3
[2018-09-07] MEDS: LINAGLIPTIN 5 MG TABLET PO (20:35)
[2018-09-07] MEDS: Mirtazapine 15 MG Tablet PO (20:36)
[2018-09-07] MEDS: Nystatin Powder 15gm Bottle 1 APPLIC TOPICAL (20:44)
[2018-09-07 20:56] LABS: Bedside Glucose 149 mg/dL (70-110)
[2018-09-07] MEDS: Menthol/Lanolin/Calamine/Znox 113 GM Tube 1 APPLIC TOPICAL (23:35)
[2018-09-08] VITALS (8 sets, daily range): BP systolic 119–132; BP diastolic 66; PULSE 71–80; RESP 16–18; TEMP 36.4–37; O2SAT 92–96
[2018-09-08] MEDS: Levothyroxine 88 MCG Tablet PO (06:14)
[2018-09-08] MEDS: 0.9% NaCl Peripheral Flush Adult/Peds IV (06:14)
[2018-09-08] MEDS: Nystatin Powder 15gm Bottle 1 APPLIC TOPICAL ×3 (06:14→22:12)
[2018-09-08 06:45] LABS: Bedside Glucose 146 mg/dL (70-110)
[2018-09-08] MEDS: Metoprolol Tartrate 25 MG Tablet PO ×2 (08:36→22:11)
[2018-09-08] MEDS: Escitalopram Oxalate 10 MG Tablet 5 MG PO (08:36)
[2018-09-08] MEDS: Multivitamins,Ther W-Minerals Tablet 1 TABLET PO (08:37)
[2018-09-08] MEDS: Digoxin 125 MCG Tablet PO (08:37)
[2018-09-08] MEDS: Febuxostat 40 MG TABLET 80 MG PO (08:37)
[2018-09-08] MEDS: Pantoprazole Sodium 40 MG Tablet PO (08:37)
[2018-09-08] MEDS: Ascorbic Acid 500 MG Tablet PO (08:38)
[2018-09-08] MEDS: Menthol/Lanolin/Calamine/Znox 113 GM Tube 1 APPLIC TOPICAL ×2 (08:38→22:08)
[2018-09-08] MEDS: APIXABAN 5 MG TABLET PO ×2 (08:38→16:50)
[2018-09-08] MEDS: Glucerna Shake 120 ML LIQUID PO ×3 (08:38→16:50)
[2018-09-08] MEDS: Acetaminophen 325 MG Tablet 650 MG PO ×2 (08:52→21:54)
[2018-09-08 11:25] LABS: Bedside Glucose 237 mg/dL (70-110)
--- NOTE | 2018-09-08 11:41 | CASEMGMT ---
PA spoke with patient's son. He said if patient cannot go to TCU and she had to go to a [place] [facility] they would [facility]. He asked if they would be able to take her home. They have a private duty CENTRAL STATION OPERATOR that is with patient 12 hours a day and he was with her the other 12 hours. He asked if home health could also be set up. SW told her that is possible. PA told him a bed might be available in TCU, but PA is waiting to hear. PA will let him know as soon as PA hears anything. Hilda GUPTA MSW
[2018-09-08] MEDS: Insulin Lispro 100 UNIT/ML INSULN.PEN SC ×2 (13:37→22:10)
--- NOTE | 2018-09-08 14:50 | CASEMGMT ---
Physician spoke with patient's son and told him there is not a bed currently available in TCU. Physician told patient's son that he would not suggest taking patient home. Patient's son said he would check with family and call SW back. Physician gave him PA's phone number. PA did talk with Ginny in TCU and the bed that may have opened up did not open up. Physician told patient's son this information. SW is awaiting return call from patient's son. Hilda GUPTA MSW
--- NOTE | 2018-09-08 15:55 | CASEMGMT ---
PA called patient's son and let him know there will not be a bed opening in TCU. He agreed to have referral faxed to [facility]. Hilda GUPTA MSW
[2018-09-08 16:46] LABS: Bedside Glucose 113 mg/dL (70-110)
--- NOTE | 2018-09-08 17:39 | PN_ITS ---
Patient Problems: Active and Suspected Problems (Last Updated 09/07/18 @ 19:31 by Saroj Pena DO) Acute gastroenteritis (Acute) Blister of right heel (Acute) Subjective: Patient was seen and examined today, I talked with her son regarding her care today, initially her son wanted to take her home today but then changed his mind and consented to short-term placement in a shelter facility. I talked to physical therapy about her care today, they stated that the patient still wants to put weight on her heel and has trouble following directions concerning toe touch on that foot. - Physical Exam General: Alert, Oriented x3, Cooperative, No apparent distress, Well developed HEENT: Atraumatic, PERRLA, EOMI, Normocephalic Oral: Moist Mucosa Neck: Supple, Trachea Midline, Thyroid Normal Size and Texture Lungs: Clear to auscultation, Normal air movement, No rhonchi, No wheeze, No rales Cardiovascular: Regular rate - Paced, Regular Rhythm, Normal S1, Normal S2, No murmurs, No Ectopic Activity Abdomen: Bowel Sounds Present, Soft, Non Tender, Non-Distended Extremities: No clubbing, No cyanosis, Capillary Refill Less than 3 Seconds, - - There is a fluid-filled blister on the patient's right heel as described previously Skin: No rashes, No breakdown Musculoskeletal: No Tenderness to Palpation of Joints or Extremities Neurological: Cranial nerves II-XII grossly intact, Neuro grossly intact, Sensory exam intact to light touch and pain Psych/Mental Status: Flat Affect, - - Patient is alert and responds appropriately to most questions Vital Signs Temp Pulse Resp BP Pulse Ox 97.5 F L 71 18 119/66 95 09/08/18 15:41 09/08/18 15:41 09/08/18 15:41 09/08/18 15:41 09/08/18 15:41 Oxygen Flow Rate (L/min) 2 Oxygen Delivery Method Room Air Weight: 68.3 kg Body Mass Index (BMI) 24.3 Finger Stick Blood Glucose 276 Intake and Output for Last 24 Hours 09/06/18 09/07/18 09/08/18 23:59 23:59 23:59 Intake Total 100 / 220 2400 / 2400 520 / 520 Output Total 2 / 2 Balance 100 / 220 2399 / 2399 518 / 518 Microbiology Past 72 Hours 09/06/18 23:00 Enteric Bacteriology - Final Stool 09/06/18 23:00 Stool Lactoferrin - Final Interface Orders 09/06/18 23:00 Stool Occult Blood (MAHOGANY) - Final Interface Orders Occult Blood Positive 09/06/18 23:00 C. difficile DNA Amplification - Final Stool POC Glucose 09/08/18 09/08/18 09/08/18 16:42 11:13 06:22 POC Glucose 113 H 237 H 146 H 09/07/18 20:32 POC Glucose 149 H Medical Necessity - Tobacco Use Smoking Status: Never smoker Assessment/Plan All Active Problems (Last Updated 09/07/18 @ 19:31 by Saroj Pena, DO) Elevated lactic acid level (Resolved) Fall (Resolved) UTI (urinary tract infection) (Resolved) Metabolic encephalopathy (Resolved) Acute gastroenteritis (Acute) Blister of right heel (Acute) Dyspnea, unspecified (Resolved) Palpitations (Resolved) Syncope and collapse (Resolved) Chest pain (Resolved) Fatigue (Resolved) Fracture of right femur (Resolved) Edema (Resolved) Acute deep vein thrombosis (DVT) of left lower extremity (Resolved) Hypotension (Resolved) UTI (urinary tract infection) (Resolved) #1 acute gastroenteritis-this appears to have resolved at this time-continue present care #2 generalized debility-PT and OT are seeing the patient, she will need to go to a shelter facility for short-term rehab #3 pressure injury to right heel-wound care nurse is seeing the patient #4 chronic atrial fibrillation-patient has a pacer and is currently paced, she is on Eliquis #5 type 2 diabetes-continue to monitor blood sugars #6 depression-I will increase patient's Lexapro. Code Visit OBSV E&M: 44411 Subsequent observation care L3
[2018-09-08] MEDS: Mirtazapine 15 MG Tablet PO (22:12)
[2018-09-08] MEDS: MELATONIN 3 MG TABLET 6 MG PO (22:12)
[2018-09-08] MEDS: LINAGLIPTIN 5 MG TABLET PO (22:13)
[2018-09-08 23:00] LABS: Bedside Glucose 182 mg/dL (70-110)
[2018-09-09] VITALS (7 sets, daily range): BP systolic 113–142; BP diastolic 55–73; PULSE 61–76; RESP 16–20; TEMP 36.5–36.9; O2SAT 93–96
[2018-09-09] MEDS: Levothyroxine 88 MCG Tablet PO (06:41)
[2018-09-09 06:45] LABS: Bedside Glucose 124 mg/dL (70-110)
--- NOTE | 2018-09-09 07:26 | CASEMGMT ---
PA faxed referral to [facility]. PA also called Alie at [facility] and let her know referral was faxed and patient is ready as soon as pre-cert is received. Hilda GUPTA MSW
[2018-09-09] MEDS: Metoprolol Tartrate 25 MG Tablet PO ×2 (09:31→22:00)
[2018-09-09] MEDS: Pantoprazole Sodium 40 MG Tablet PO (09:31)
[2018-09-09] MEDS: Multivitamins,Ther W-Minerals Tablet 1 TABLET PO (09:31)
[2018-09-09] MEDS: Digoxin 125 MCG Tablet PO (09:31)
[2018-09-09] MEDS: Ascorbic Acid 500 MG Tablet PO (09:31)
[2018-09-09] MEDS: Escitalopram Oxalate 10 MG Tablet PO (09:31)
[2018-09-09] MEDS: APIXABAN 5 MG TABLET PO ×2 (09:31→17:01)
[2018-09-09] MEDS: Menthol/Lanolin/Calamine/Znox 113 GM Tube 1 APPLIC TOPICAL ×2 (09:31→21:59)
[2018-09-09] MEDS: Glucerna Shake 120 ML LIQUID PO ×3 (09:31→17:02)
[2018-09-09] MEDS: Febuxostat 40 MG TABLET 80 MG PO (09:31)
[2018-09-09] MEDS: Insulin Lispro 100 UNIT/ML INSULN.PEN SC ×3 (11:41→21:59)
[2018-09-09 11:45] LABS: Bedside Glucose 218 mg/dL (70-110)
[2018-09-09] MEDS: Nystatin Powder 15gm Bottle 1 APPLIC TOPICAL ×2 (13:03→22:00)
--- NOTE | 2018-09-09 13:32 | PCM.PROGNOTE ---
Patient Problems: Active and Suspected Problems (Last Updated 09/07/18 @ 19:31 by Saroj Pena DO) Acute gastroenteritis (Acute) Blister of right heel (Acute) Subjective: No diarrhea, nausea/vomiting, abd pain or cramping. Last BM yesterday was normal. Tolerating PO with no issues. No fever/chills. Very weak. Has only taken a few steps to the chair with assistance. - Physical Exam General: Alert, Oriented x3, Cooperative HEENT: Atraumatic, PERRLA, EOMI, Normocephalic Neck: Supple, No JVD, Negative Carotid Bruits Lungs: Clear to auscultation, Normal air movement Cardiovascular: Regular rate, No murmurs Abdomen: Bowel Sounds Present, Soft, Non Tender Extremities: No edema, Capillary Refill Less than 3 Seconds Skin: No rashes, No breakdown Musculoskeletal: No Tenderness to Palpation of Joints or Extremities Neurological: Cranial nerves II-XII grossly intact Psych/Mental Status: Normal Affect, Appropriate, Alert and oriented to time, place, person, mood and affect Vital Signs Temp Pulse Resp BP Pulse Ox 97.7 F L 69 16 142/73 H 95 09/09/18 09:21 09/09/18 09:31 09/09/18 09:21 09/09/18 09:21 09/09/18 11:37 Oxygen Flow Rate (L/min) 2 Oxygen Delivery Method Room Air Weight: 150 lb 9.211 oz Body Mass Index (BMI) 24.3 Finger Stick Blood Glucose 276 Intake and Output for Last 24 Hours 09/07/18 09/08/18 09/09/18 23:59 23:59 23:59 Intake Total 2400 / 2400 760 / 760 360 / 360 Output Total 2 / 2 Balance 2399 / 2399 758 / 758 360 / 360 Microbiology Past 72 Hours 09/06/18 23:00 Enteric Bacteriology - Final Stool 09/06/18 23:00 Stool Lactoferrin - Final Interface Orders 09/06/18 23:00 Stool Occult Blood (MAHOGANY) - Final Interface Orders Occult Blood Positive 09/06/18 23:00 C. difficile DNA Amplification - Final Stool POC Glucose 09/09/18 09/09/18 09/08/18 11:39 06:37 22:05 POC Glucose 218 H 124 H 182 H 09/08/18 16:42 POC Glucose 113 H Medical Necessity - Tobacco Use Smoking Status: Never smoker Assessment/Plan All Active Problems (Last Updated 09/07/18 @ 19:31 by Saroj Pena DO) Elevated lactic acid level (Resolved) Fall (Resolved) UTI (urinary tract infection) (Resolved) Metabolic encephalopathy (Resolved) Acute gastroenteritis (Acute) Blister of right heel (Acute) Dyspnea, unspecified (Resolved) Palpitations (Resolved) Syncope and collapse (Resolved) Chest pain (Resolved) Fatigue (Resolved) Fracture of right femur (Resolved) Edema (Resolved) Acute deep vein thrombosis (DVT) of left lower extremity (Resolved) Hypotension (Resolved) UTI (urinary tract infection) (Resolved) 1. Acute gastroenteritis - suspect viral. Resolved. 2. Generalized debility - PTOT, SNF placement 3. Pressure injury right heel - continue wound care 4. Chronic Afib - pacer, eliquis 5. DMt2 - SSI 6. Depression - lexapro inc. continue at [facility]. DVT ppx: janina PADGETT planning: SNF at [facility] This patient was seen by Mich Belcher PA-C under the supervision of Dr. Pena.
--- NOTE | 2018-09-09 14:32 | CASEMGMT ---
PA spoke with Ginny in TCU and she has a bed available. PA told her PA will ask [facility] to cancel pre-cert request as a bed opened up in TCU and that was patient's first choice. PA then called Ginny and asked her to please start the pre-cert. PA spoke with patient's son when he came to [facility]. PA let him know a bed opened up in TCU. He was very thankful and was going to see patient to let her know. Plan: [facility] TCU pending insurance approval. Hilda GUPTA MSW
[2018-09-09 17:06] LABS: Bedside Glucose 193 mg/dL (70-110)
[2018-09-09] MEDS: MELATONIN 3 MG TABLET 6 MG PO (22:00)
[2018-09-09] MEDS: Mirtazapine 15 MG Tablet PO (22:01)
[2018-09-09] MEDS: LINAGLIPTIN 5 MG TABLET PO (22:01)
[2018-09-09 22:20] LABS: Bedside Glucose 163 mg/dL (70-110)
[2018-09-10 03:45] VITALS: BP 128/68; PULSE 64; RESP 16; TEMP 36.3; O2SAT 95
[2018-09-10] MEDS: Nystatin Powder 15gm Bottle 1 APPLIC TOPICAL (06:48)
[2018-09-10] MEDS: Levothyroxine 88 MCG Tablet PO (06:51)
[2018-09-10 07:00] LABS: Bedside Glucose 134 mg/dL (70-110)
--- NOTE | 2018-09-10 07:40 | CASEMGMT ---
Patient was approved for TCU. SW notified physician. Hilda COLE
[2018-09-10 08:10] VITALS: O2SAT 94
[2018-09-10 08:21] VITALS: BP 132/69; PULSE 69; RESP 16; TEMP 36.5; O2SAT 96
[2018-09-10] MEDS: Menthol/Lanolin/Calamine/Znox 113 GM Tube 1 APPLIC TOPICAL (08:25)
[2018-09-10] MEDS: Multivitamins,Ther W-Minerals Tablet 1 TABLET PO (08:26)
[2018-09-10 08:27] VITALS: PULSE 69
[2018-09-10] MEDS: Glucerna Shake 120 ML LIQUID PO (08:27)
[2018-09-10] MEDS: Digoxin 125 MCG Tablet PO (08:27)
[2018-09-10] MEDS: APIXABAN 5 MG TABLET PO (08:27)
[2018-09-10 08:28] VITALS: PULSE 69
[2018-09-10] MEDS: Metoprolol Tartrate 25 MG Tablet PO (08:28)
[2018-09-10] MEDS: Escitalopram Oxalate 10 MG Tablet PO (08:28)
[2018-09-10] MEDS: Febuxostat 40 MG TABLET 80 MG PO (08:28)
[2018-09-10] MEDS: Ascorbic Acid 500 MG Tablet PO (08:28)
[2018-09-10] MEDS: Pantoprazole Sodium 40 MG Tablet PO (08:28)
--- NOTE | 2018-09-10 08:28 | PCM.TXEXTCAR ---
- Diet 09/07/18 08:36 Diet: 1800 nellie Is pt able to select menu?:yes - Routine Orders/Code Status Code Status: DNRCC-A - Wound(s) Right Heel Wound Type: Pressure Injury Dressing Change: betadine with dry dressing - Therapies Weight Bearing: Toe-touch weight bearing - right foot Physical Therapy: Eval and Treat Occupational Therapy: Eval and Treat - Problem/Diagnosis (1) CKD (chronic kidney disease) stage 3, GFR 30-59 ml/min Status: Chronic Current Visit: No (2) Diabetes mellitus Status: Chronic Current Visit: No (3) Acute gastroenteritis Status: Acute Current Visit: Yes (4) Blister of right heel Status: Acute Current Visit: Yes (5) Atrial fibrillation Status: Chronic Current Visit: No (6) Cardiomyopathy, nonischemic Status: Chronic Current Visit: No (7) HTN (hypertension) Status: Chronic Current Visit: No (8) Depression Status: Chronic Current Visit: Yes - Allergies/Procedures Done in Hospital Allergies/Adverse Reactions: Allergies exenatide [From Byetta] Allergy (Verified 09/06/18 17:30) Unknown metformin Allergy (Verified 09/06/18 17:30) Rash Penicillins [PCN] Allergy (Verified 09/06/18 17:30) Unknown simvastatin [From Zocor] Adverse Reaction (Severe, Verified 08/18/18 17:17) Myalgias prednisone Adverse Reaction (Unknown, Verified 09/06/18 17:30) effects blood sugar amoxicillin [From Augmentin] Adverse Reaction (Verified 09/06/18 17:30) Diarrhea clavulanic acid [From Augmentin] Adverse Reaction (Verified 09/06/18 17:30) Diarrhea crestor Adverse Reaction (Intermediate, Uncoded 08/18/18 17:17) myalgia Procedures: None - Type of Care/Length of Stay Estimated LOS: Convalescent Care Less Than 30 days Type of Care Needed: Skilled Rehab Potential: Good Prognosis: Good - Additional Orders/Day of Discharge H&P will serve as current which was dated: 09/06/18 Day of Discharge: 09/10/18 - Dietary and Speech Recommendations Dietitian Recommendations/Changes: Will add glucerna shake with medpass. Recommend add Jj 1 packet BID for wound healing--order from pharmacy. - Follow Up Care Primary Care Physician: Saroj Fajardo DO [Primary Care Provider] -
--- NOTE | 2018-09-10 09:49 | CASEMGMT ---
PA copied orders. PA called patient's son and let him know patient will be moved to TCU today as she was approved by insurance. He thanked PA for the update. RN aware. Plan: d/c to [facility] TCU under skilled level of care. Hilda GUPTA MSW
[2018-09-10] MEDS: Insulin Lispro 100 UNIT/ML INSULN.PEN SC (11:09)
[2018-09-10 11:15] LABS: Bedside Glucose 229 mg/dL (70-110)
--- NOTE | 2018-09-10 15:35 | PCM.DC.SUM ---
Discharge Date and Diagnosis Date of Admission: 09/06/18 Date of Discharge: 09/10/18 - Primary Discharge Diagnosis #1 acute viral gastroenteritis #2 generalized debility #3 pressure injury to right heel #4 chronic atrial fibrillation #5 type 2 diabetes #6 depression. - Secondary Discharge Diagnosis Chronic Problems (Last Updated 09/07/18 @ 19:31 by Saroj Pena DO) Depression (Chronic) CKD (chronic kidney disease) stage 3, GFR 30-59 ml/min (Chronic) Chronic kidney disease (Chronic) Chronic diastolic heart failure (Chronic) Diabetes mellitus (Chronic) Gout (Chronic) Recurrent UTI (Chronic) Sick sinus syndrome (Chronic) Atrial fibrillation (Chronic) Cardiomyopathy, nonischemic (Chronic) HLD (hyperlipidemia) (Chronic) HTN (hypertension) (Chronic) Hypothyroidism (Chronic) Hypokalemia (Chronic) Chronic diastolic (congestive) heart failure (Chronic) Iron deficiency anemia (Chronic) GERD (gastroesophageal reflux disease) (Chronic) Cardiac pacemaker in situ (Chronic) DM2 (diabetes mellitus, type 2) (Chronic) CHF (congestive heart failure) (Chronic) Pulmonary hypertension (Chronic) Hospital Course and Treatment Consultations 09/06/18 17:35 Consult: Onc/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 She complained of feeling weak and lightheaded. Work-up in the emergency room included a CBC which showed an elevated white count of 15.1, chemistry panel was unremarkable. Patient was given IV fluids in the emergency room and placed into observation status on PCU for gastroenteritis. Patient had no more episodes of diarrhea, repeat CBC showed a normal white blood cell count. She was seen by PT and OT and was felt to benefit from a short inpatient stay at a [facility] facility-son requested TCU and on 09/10/2018, patient was transferred to TCU in stable condition for inpatient rehab. Physical exam: On examination she appeared in good health and spirits. Vital signs as documented. Skin warm and dry and without overt rashes. Neck without JVD. Lungs clear. Heart exam notable for regular rhythm, normal sounds and absence of murmurs, rubs or gallops. Abdomen unremarkable and without evidence of organomegaly, masses, or abdominal aortic enlargement. Extremities nonedematous. Neuro: Cranial nerves II through XII are grossly intact, no focal motor deficits were noted, sensation to light touch and pinprick is intact. Psych: Patient is alert and oriented x3, she has a flat affect and appears mildly depressed. - Physical Exam Vital Signs Temp Pulse Resp BP Pulse Ox 97.7 F L 69 16 132/69 H 96 09/10/18 08:21 09/10/18 08:28 09/10/18 08:21 09/10/18 08:21 09/10/18 08:21 Oxygen Flow Rate (L/min) 2 Oxygen Delivery Method Room Air Weight: 68.3 kg Body Mass Index (BMI) 24.3 Finger Stick Blood Glucose 276 Intake and Output for Last 24 Hours 09/08/18 09/09/18 09/10/18 23:59 23:59 23:59 Intake Total 760 / 760 840 / 840 30 / 30 Output Total 2 / 2 Balance 758 / 758 840 / 840 30 / 30 POC Glucose 09/10/18 09/10/18 09/09/18 11:07 06:47 21:55 POC Glucose 229 H 134 H 163 H 09/09/18 16:59 POC Glucose 193 H Home Medications: Medications to take at Discharge Linagliptin [Tradjenta] 5 mg PO QHS 04/28/18 Apixaban [Eliquis] 5 mg PO BID 04/30/18 Ascorbic Acid [Vitamin C] 500 mg PO DAILY 08/18/18 Febuxostat [Uloric] 80 mg PO DAILY 08/18/18 L.acidoph,Paracasei, B.lactis [Probiotic] 1 ea PO DAILY 08/18/18 Melatonin 6 mg PO QHS 08/18/18 Pantoprazole Sodium [Protonix] 40 mg PO DAILY 08/18/18 Digoxin 125 mcg PO DAILY 09/06/18 Levothyroxine [Synthroid] 88 mcg PO DAILY@0700 09/06/18 Metoprolol Tartrate [Lopressor (beta chanel)] 25 mg PO BID 09/06/18 Mirtazapine 15 mg PO QHS 09/06/18 Multivitamin with Minerals [Multiple Vitamin] 1 tab PO DAILY 09/06/18 Acetaminophen [Tylenol Tablet] 650 mg PO Q6H PRN PRN tab 09/10/18 Escitalopram Oxalate [Lexapro] 10 mg PO DAILY 09/10/18 Glucerna Shake 120 ml PO 4X/DAY 09/10/18 Menthol/Lanolin/Calamine/Znox [Calmoseptine Ointment] 1 applic TOPICAL BID 09/10/18 Nystatin Powder [Mycostatin Powder] 1 applic TOPICAL BID 09/10/18 Primary Care Physician: Saroj Fajardo DO [Primary Care Provider] - Disposition: Correction facility Minutes spent on discharge:: 30 Patient Condition:: Stable Medical Necessity - Tobacco Use Smoking Status: Never smoker Meaningful Use Info Meaningful Use Diagnoses (Choose all that apply): None applicable Code Visit OBSV E&M: 61405 Observation care discharge
== END 2018-09-10 08:31 | disposition skilled nursing facility (03) ==
LOC: ED 13:37 → PCU 15:41
PROVIDERS: Admitting Provider Internal Medicine; Emergency Provider Emergency Medicine; Family Provider Family Medicine; PCP Family Medicine; Visit Provider Internal Medicine
DX: E86.0 Dehydration (principal); A08.4 Viral intestinal infection, unspecified; E11.22 Type 2 diabetes mellitus with diabetic chronic kidney disease; I50.32 Chronic diastolic (congestive) heart failure; I13.0 Hypertensive heart and chronic kidney disease with heart failure and stage 1 through stage 4 chronic kidney disease, or unspecified chronic kidney disease; N18.3 Chronic kidney disease, stage 3 (moderate); M10.9 Gout, unspecified; E78.5 Hyperlipidemia, unspecified; I42.8 Other cardiomyopathies; E03.9 Hypothyroidism, unspecified; K21.9 Gastro-esophageal reflux disease without esophagitis; D50.9 Iron deficiency anemia, unspecified; I27.20 Pulmonary hypertension, unspecified; I48.2 Chronic atrial fibrillation; F41.9 Anxiety disorder, unspecified; F32.9 Major depressive disorder, single episode, unspecified; Z79.899 Other long term (current) drug therapy; Z79.01 Long term (current) use of anticoagulants; Z86.718 Personal history of other venous thrombosis and embolism; Z95.0 Presence of cardiac pacemaker; E11.621 Type 2 diabetes mellitus with foot ulcer; L89.610 Pressure ulcer of right heel, unstageable
CPT/HCPCS: 36415; 80048; 82274; 82962; 83605; 83630; 83735; 85025; 87493; 87506; 93005; 96360; 96361; 97116; 97162; 97166; 97530; 97802; 99218; 99285; J7030; A4216; G0378

== ENCOUNTER 2018-09-10 12:40 | Inpatient (IN) | payer MEDICARE, SELFPAY ==
[2018-09-10 13:19] VITALS: BP 120/69; PULSE 70; RESP 18; TEMP 36.3; O2SAT 94
[2018-09-10 13:32] VITALS: BMI 24.3
[2018-09-10 13:35] VITALS: BMI 24.4
--- NOTE | 2018-09-10 14:15 | NURSING ---
Patient admitted to room 15 from PCU via wheelchair. Patient oriented to room and call light system explained.
[2018-09-10 15:07] VITALS: BP 129/77; PULSE 88; RESP 18; TEMP 36.9; O2SAT 100
--- NOTE | 2018-09-10 15:47 | HP.PCM_ITS ---
Problem List (1) Debility Status: Acute (2) Diarrhea Status: Acute (3) Viral gastroenteritis Status: Acute (4) Dehydration Status: Acute (5) Acute kidney injury Status: Acute (6) Atrophic vaginitis Status: Chronic (7) Chronic kidney disease Status: Chronic (8) Chronic diastolic heart failure Status: Chronic (9) Diabetes mellitus Status: Chronic (10) Gout Status: Chronic (11) Recurrent UTI Status: Chronic (12) Atrial fibrillation Status: Chronic Qualifiers: (13) HLD (hyperlipidemia) Status: Chronic Qualifiers: (14) HTN (hypertension) Status: Chronic Qualifiers: (15) Hypothyroidism Status: Chronic Qualifiers: (16) Hypokalemia Status: Chronic (17) Iron deficiency anemia Status: Chronic Qualifiers: (18) GERD (gastroesophageal reflux disease) Status: Chronic Qualifiers: History of Present Illness Date of Admission: 09/10/18 Chief Complaint: Here for rehabilitation, strengthening, prior to discharge home. The patient is a 83 year old Female with below past medical history presented to [facility] Emergency Department 09/06/2018 with diarrhea. Diarrhea 8 to 9 episodes, recent antibiotic for urinary tract infection for 10 days. Right heel ulcer x 5 days, blister, she had nausea, but no vomiting. Recent geropsychiatric hospital admission. WBC 15.1, Hemoglobin 15, Hematocrit 46, Platelet 147. BMP okay, Lactate 0.9, Stool test sent. IV Fluids given, Evaluate for C. Diff. 09/06/2018 Admit to Hospital. IV fluids for acute gastroenteritis. C. Diff NEGATIVE. 09/06/2018 EKG atrial sensed ventricular paced rhythm in pattern of bigemy. Diarrhea thought secondary to viral gastroenteritis. 09/10/2018 Admit to TCU with debility, here for rehabilitation, strengthening, prior to discharge home alone. Past Medical History Past Medical History (Chronic Problems): Chronic Problems (Last Updated 09/07/18 @ 19:31 by Saroj Pena DO) Depression (Chronic) Atrophic vaginitis (Chronic) CKD (chronic kidney disease) stage 3, GFR 30-59 ml/min (Chronic) Chronic kidney disease (Chronic) Chronic diastolic heart failure (Chronic) Diabetes mellitus (Chronic) Gout (Chronic) Recurrent UTI (Chronic) Sick sinus syndrome (Chronic) Atrial fibrillation (Chronic) Cardiomyopathy, nonischemic (Chronic) HLD (hyperlipidemia) (Chronic) HTN (hypertension) (Chronic) Hypothyroidism (Chronic) Hypokalemia (Chronic) Chronic diastolic (congestive) heart failure (Chronic) Iron deficiency anemia (Chronic) GERD (gastroesophageal reflux disease) (Chronic) Cardiac pacemaker in situ (Chronic) DM2 (diabetes mellitus, type 2) (Chronic) CHF (congestive heart failure) (Chronic) Pulmonary hypertension (Chronic) Medical History: Medical History (Last Updated 09/07/18 @ 19:31 by Saroj Pena DO) Fracture of right femur (Resolved) S72.91XA Sick sinus syndrome (Chronic) I49.5 Atrial fibrillation (Chronic) I48.91 Cardiomyopathy, nonischemic (Chronic) I42.8 HLD (hyperlipidemia) (Chronic) E78.5 HTN (hypertension) (Chronic) I10 Hypothyroidism (Chronic) E03.9 Hypokalemia (Chronic) E87.6 Chronic diastolic (congestive) heart failure (Chronic) I50.32 Edema (Resolved) R60.9 Acute deep vein thrombosis (DVT) of left lower extremity (Resolved) I82.402 Iron deficiency anemia (Chronic) D50.9 GERD (gastroesophageal reflux disease) (Chronic) K21.9 Cardiac pacemaker in situ (Chronic) Z95.0 Hypotension (Resolved) I95.9 UTI (urinary tract infection) (Resolved) N39.0 DM2 (diabetes mellitus, type 2) (Chronic) E11.9 CHF (congestive heart failure) (Chronic) I50.9 Pulmonary hypertension (Chronic) I27.2 Acute kidney injury N17.9 Chronic diarrhea K52.9 Cystitis N30.90 Dementia F03.90 Depression F32.9 Encephalopathy G93.40 Gout M10.9 Postoperative anemia D64.9 H/O: hysterectomy Z90.710 Acute kidney injury (Inactive) N17.9 Afib (Inactive) I48.91 Chronic diarrhea (Inactive) K52.9 Cystitis (Inactive) N30.90 no culture obtained DVT of axillary vein, acute left (Inactive) I82.A12 Dementia (Inactive) F03.90 Depression (Inactive) F32.9 Diarrhea (Inactive) R19.7 Dvt femoral (deep venous thrombosis) (Inactive) I82.419 left leg Encephalopathy (Inactive) G93.40 Fall (Inactive) W19.XXXA Gout (Inactive) M10.9 Muscle spasm (Inactive) M62.838 Pacemaker (Inactive) Z95.0 Postoperative anemia (Inactive) D64.9 Thrush (Inactive) B37.0 Allergies exenatide [From Byetta] Allergy (Verified 09/06/18 17:30) Unknown metformin Allergy (Verified 09/06/18 17:30) Rash Penicillins [PCN] Allergy (Verified 09/06/18 17:30) Unknown simvastatin [From Zocor] Adverse Reaction (Severe, Verified 08/18/18 17:17) Myalgias prednisone Adverse Reaction (Unknown, Verified 09/06/18 17:30) effects blood sugar amoxicillin [From Augmentin] Adverse Reaction (Verified 09/06/18 17:30) Diarrhea clavulanic acid [From Augmentin] Adverse Reaction (Verified 09/06/18 17:30) Diarrhea crestor Adverse Reaction (Intermediate, Uncoded 08/18/18 17:17) myalgia Home Medications: Ambulatory Orders Medication Instructions Recorded Linagliptin [Tradjenta] 5 mg PO QHS 04/28/18 Apixaban [Eliquis] 5 mg PO BID 04/30/18 Ascorbic Acid [Vitamin C] 500 mg PO DAILY 08/18/18 Febuxostat [Uloric] 80 mg PO DAILY 08/18/18 L.acidoph,Paracasei, B.lactis 1 ea PO DAILY 08/18/18 [Probiotic] Melatonin 6 mg PO QHS 08/18/18 Pantoprazole Sodium [Protonix] 40 mg PO DAILY 08/18/18 Digoxin 125 mcg PO DAILY 09/06/18 Levothyroxine [Synthroid] 88 mcg PO DAILY@0700 09/06/18 Metoprolol Tartrate [Lopressor 25 mg PO BID 09/06/18 (beta chanel)] Mirtazapine 15 mg PO QHS 09/06/18 Multivitamin with Minerals 1 tab PO DAILY 09/06/18 [Multiple Vitamin] Acetaminophen [Tylenol Tablet] 650 mg PO Q6H PRN PRN tab 09/10/18 Escitalopram Oxalate [Lexapro] 10 mg PO DAILY 09/10/18 Glucerna Shake 120 ml PO 4X/DAY 09/10/18 Menthol/Lanolin/Calamine/Znox 1 applic TOPICAL BID 09/10/18 [Calmoseptine Ointment] Nystatin Powder [Mycostatin Powder] 1 applic TOPICAL BID 09/10/18 Surgical History: Surgical History (Last Reviewed 08/18/18 @ 19:25 by John Barrientos DO) History of bilateral knee replacement Z96.653 History of cholecystectomy Z90.49 Presence of vena cava filter Z95.828 implantation pacemakr pacemaker generator change Surgical History: cholecystectomy, hysterectomy, pacemaker implantation, total knee arthroplasty - Bilateral., - - IVC filter, right hip fracture repair. 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 Review of Systems Constitutional: Denies: Chills, Fever, Weight Change HEENT: Denies: Head Aches, Sinus Congestion, Sinus Drainage Cardiovascular: Denies: Chest Pain, Palpitations Respiratory: Denies: Cough, Shortness of breath at rest, Sputum production Gastrointestinal: Denies: Abdominal Pain, Nausea, Vomiting Genitourinary: Denies: Dysuria Musculoskeletal: Denies: Joint Pain, Joint Tenderness Skin: Denies: Rash, Wounds Neurological: Denies: Numbness, Tingling, Focal weakness Psychiatric: Denies: Anxiety, Depression, Homicidal Ideations, Suicidal Ideations Hematologic/ Lymphatic: Denies: Easy Bruising, Easy Bleeding VTE Information - Inpt Only VTE Present on Admission: No VTE Mechan Device Prophylaxis: Knee High PALAK Hose VTE Pharm Prophylaxis ordered?: No Reason prophylaxis not ordered:: Treatment Not Indicated Patient Problems: Active and Suspected Problems (Last Updated 09/07/18 @ 19:31 by Saroj Pena DO) Debility (Acute) Diarrhea (Acute) Viral gastroenteritis (Acute) Dehydration (Acute) Acute kidney injury (Acute) - Physical Exam General: Alert, Oriented x3, Cooperative HEENT: Atraumatic, PERRLA, EOMI, Normocephalic Neck: Supple, No JVD, Negative Carotid Bruits Lungs: Clear to auscultation, Normal air movement Cardiovascular: Regular rate, No murmurs Abdomen: Bowel Sounds Present, Soft, Non Tender Extremities: No edema, Capillary Refill Less than 3 Seconds, - - Right heel ulcer, dressed. Skin: No rashes, No breakdown Musculoskeletal: No Tenderness to Palpation of Joints or Extremities Neurological: Cranial nerves II-XII grossly intact Psych/Mental Status: Normal Affect, Appropriate Vital Signs Temp Pulse Resp BP Pulse Ox 98.5 F 88 18 129/77 H 100 09/10/18 15:07 09/10/18 15:07 09/10/18 15:07 09/10/18 15:07 09/10/18 15:07 Oxygen Delivery Method Room Air Weight: 68.5 kg Body Mass Index (BMI) 24.3 Finger Stick Blood Glucose 276 Assessment/Plan All Active Problems (Last Updated 09/07/18 @ 19:31 by Saroj Pena DO) Debility (Acute) Diarrhea (Acute) Viral gastroenteritis (Acute) Dehydration (Acute) Acute kidney injury (Acute) Elevated lactic acid level (Resolved) Fall (Resolved) UTI (urinary tract infection) (Resolved) Metabolic encephalopathy (Resolved) Acute gastroenteritis (Acute) Blister of right heel (Acute) Dyspnea, unspecified (Resolved) Palpitations (Resolved) Syncope and collapse (Resolved) Chest pain (Resolved) Fatigue (Resolved) Fracture of right femur (Resolved) Edema (Resolved) Acute deep vein thrombosis (DVT) of left lower extremity (Resolved) Hypotension (Resolved) UTI (urinary tract infection) (Resolved) 83 year old female with below past medical history hospitalized for diarrhea secondary to acute gastroenteritis, admitted to TCU with debility, here for rehabilitation, strengthening, prior to discharge home alone. * Debility - PT/OT. * Pain - Tylenol 1000MG Q6H PRN mild pain. * Bowel - Miralax 17GM daily, Senna/colace 1 tablet BID PRN, Dulcolax 10MG daily PRN. * Pneumonia vaccination - Administer Prevnar 13 and/or Pneumovax 23 as necessary. * DVT prophylaxis - Not necessary, already on Eliquis. * Atrial Fibrillation - Metoprolol 25MG BID, Digoxin 125MCG daily, Eliquis 5MG BID. * Vitamin C deficiency - Vitamin C 500MG daily. * Depression - Escitalopram 10MG daily, Mirtazapine 15MG QHS. * Gout - Uloric 80MG daily. * Nutrition - MVI daily, Glucerna 120ML 4x/day, Jj 2 packets BID. * GI prophylaxis - Lactobacillus 1 tablet daily. * Hypothyroidism - Levothyroxine 88MCG daily. * Diabetes Mellitus II - Tradjenta 5MG daily. * Insomnia - Melatonin 6MG QHS, Mirtazapine 15MG QHS. * Skin irritation - Calmoseptine BID. * Tinea Corporis - Nystatin powder BID. * GERD - Pantoprazole 40MG daily. * Right heel ulcer - wound nurse.
[2018-09-10 17:10] LABS: Bedside Glucose 158 mg/dL (70-110)
[2018-09-10] MEDS: Glucerna Shake 120 ML LIQUID PO ×2 (17:21→20:25)
[2018-09-10 17:23] VITALS: BP 129/77; PULSE 88
[2018-09-10] MEDS: Metoprolol Tartrate 25 MG Tablet PO (17:23)
[2018-09-10] MEDS: APIXABAN 5 MG TABLET PO (17:27)
[2018-09-10] MEDS: MELATONIN 3 MG TABLET 6 MG PO (20:24)
[2018-09-10] MEDS: Mirtazapine 15 MG Tablet PO (20:24)
[2018-09-10] MEDS: LINAGLIPTIN 5 MG TABLET PO (20:24)
[2018-09-10] MEDS: Menthol/Lanolin/Calamine/Znox 113 GM Tube 1 APPLIC TOPICAL (20:25)
[2018-09-10] MEDS: Nystatin Powder 15gm Bottle 1 APPLIC TOPICAL (20:25)
[2018-09-10 21:26] LABS: Bedside Glucose 215 mg/dL (70-110)
[2018-09-11] MEDS: Polyethylene Glycol 3350 17 GM PACKET PO (05:27)
[2018-09-11] MEDS: Febuxostat 40 MG TABLET 80 MG PO (05:27)
[2018-09-11] MEDS: Menthol/Lanolin/Calamine/Znox 113 GM Tube 1 APPLIC TOPICAL ×2 (05:28→20:07)
[2018-09-11] MEDS: Pantoprazole Sodium 40 MG Tablet PO (05:28)
[2018-09-11] MEDS: Escitalopram Oxalate 10 MG Tablet PO (05:28)
[2018-09-11] MEDS: Nystatin Powder 15gm Bottle 1 APPLIC TOPICAL ×2 (05:28→20:08)
[2018-09-11] MEDS: Levothyroxine 88 MCG Tablet PO (05:28)
[2018-09-11] MEDS: Ascorbic Acid 500 MG Tablet PO (05:28)
[2018-09-11] MEDS: Glucerna Shake 120 ML LIQUID PO ×3 (05:29→20:07)
[2018-09-11 05:30] VITALS: BP 163/61; PULSE 69
[2018-09-11] MEDS: Digoxin 125 MCG Tablet PO (05:30)
[2018-09-11] MEDS: Metoprolol Tartrate 25 MG Tablet PO ×2 (05:30→17:15)
[2018-09-11 06:36] LABS: Bedside Glucose 196 mg/dL (70-110)
[2018-09-11 07:13] LABS: Absolute Lymphocyte Count 1.31 X10^3/uL (0.83-4.51); Basophil# 0.02 X10^3/uL; Basophil% 0.3 % (0-1); Eosinophil# 0.19 X10^3/uL; Eosinophils% 2.6 % (0-5); Hematocrit 42.1 % (37-47); Hemoglobin 13.7 g/dL (12.0-15.0); Lymphocyte # 1.31 X10^3/ul (4.0); Mean Corp Hgb Conc 32.5 g/dL (32-36); Mean Corpuscular Hgb 28.6 pg (27.0-32.0); Mean Corpuscular Volume 87.9 fL (81-99); Mean Platelet Vol. 10.9 fl (6.2-12.0); Monocyte# 0.69 X10^3/uL; Monocyte% 9.5 % (0-10); NRBC Flagged by Analyzer 0 % (0-5); Neutrophil # 5.03 X10^3/uL (2.7-7.7); Neutrophil % 69.2 % (47-70); Platelet Count 155 K/mm3 (150-450); RBC Distribution Width SD 45.1 fl (35.1-43.9); Red Blood Count 4.79 M/mm3 (4.2-5.4); White Blood Count 7.3 K/mm3 (4.4-11.0)
[2018-09-11 07:34] LABS: Anion Gap 6 (5-15); BUN 28 mg/dL (7-18); BUN/Creat Ratio 41.9 RATIO (10-20); Chloride 106 mmol/L (98-107); Creatinine, Serum 0.67 mg/dL (0.55-1.02); EST Glomerular Filtration Rate 89 mL/min (>60); Est Glom Filt Rate - Afr Amer 108 mL/min (>60); Glucose 210 mg/dL (74-106); Potassium 4.1 mmol/L (3.5-5.1); Sodium Level 138 mmol/L (136-145)
[2018-09-11] MEDS: Multivitamins,Ther W-Minerals Tablet 1 TABLET PO (09:25)
[2018-09-11] MEDS: APIXABAN 5 MG TABLET PO ×2 (09:25→17:14)
[2018-09-11 11:41] LABS: Bedside Glucose 275 mg/dL (70-110)
[2018-09-11] MEDS: Tuberculin,Purif.prot.deriv. 50 TU/ML Vial 5 ML ID (12:00)
[2018-09-11 15:56] VITALS: BP 137/75; PULSE 80; RESP 19; TEMP 37.3; O2SAT 95
[2018-09-11 17:06] LABS: Bedside Glucose 207 mg/dL (70-110)
[2018-09-11 17:15] VITALS: BP 137/75; PULSE 80
[2018-09-11] MEDS: Mirtazapine 15 MG Tablet PO (20:07)
[2018-09-11] MEDS: LINAGLIPTIN 5 MG TABLET PO (20:07)
[2018-09-11] MEDS: MELATONIN 3 MG TABLET 6 MG PO (20:07)
[2018-09-11 21:06] LABS: Bedside Glucose 244 mg/dL (70-110)
[2018-09-12] MEDS: Escitalopram Oxalate 10 MG Tablet PO (04:48)
[2018-09-12] MEDS: Pantoprazole Sodium 40 MG Tablet PO (04:48)
[2018-09-12] MEDS: Ascorbic Acid 500 MG Tablet PO (04:49)
[2018-09-12] MEDS: Glucerna Shake 120 ML LIQUID PO ×4 (04:49→20:53)
[2018-09-12] MEDS: Menthol/Lanolin/Calamine/Znox 113 GM Tube 1 APPLIC TOPICAL ×2 (04:49→20:54)
[2018-09-12] MEDS: Levothyroxine 88 MCG Tablet PO (04:49)
[2018-09-12] MEDS: Febuxostat 40 MG TABLET 80 MG PO (04:49)
[2018-09-12] MEDS: Nystatin Powder 15gm Bottle 1 APPLIC TOPICAL ×2 (04:50→20:54)
[2018-09-12] MEDS: Polyethylene Glycol 3350 17 GM PACKET PO (04:51)
[2018-09-12 04:59] VITALS: BP 149/68; PULSE 64
[2018-09-12] MEDS: Digoxin 125 MCG Tablet PO (04:59)
[2018-09-12 05:00] VITALS: PULSE 64
[2018-09-12] MEDS: Metoprolol Tartrate 25 MG Tablet PO ×2 (05:00→16:16)
[2018-09-12 06:35] LABS: Bedside Glucose 193 mg/dL (70-110)
[2018-09-12] MEDS: APIXABAN 5 MG TABLET PO ×2 (08:15→16:16)
[2018-09-12] MEDS: Multivitamins,Ther W-Minerals Tablet 1 TABLET PO (08:15)
[2018-09-12 11:31] LABS: Bedside Glucose 266 mg/dL (70-110)
[2018-09-12 16:00] VITALS: BP 129/69; PULSE 75; RESP 20; TEMP 37.2; O2SAT 95
[2018-09-12 16:16] VITALS: BP 129/69; PULSE 75
[2018-09-12 16:50] LABS: Bedside Glucose 190 mg/dL (70-110)
[2018-09-12] MEDS: LINAGLIPTIN 5 MG TABLET PO (20:53)
[2018-09-12] MEDS: MELATONIN 3 MG TABLET 6 MG PO (20:54)
[2018-09-12] MEDS: Mirtazapine 15 MG Tablet PO (20:54)
[2018-09-13] MEDS: Febuxostat 40 MG TABLET 80 MG PO (05:19)
[2018-09-13] MEDS: Ascorbic Acid 500 MG Tablet PO (05:19)
[2018-09-13] MEDS: Escitalopram Oxalate 10 MG Tablet PO (05:19)
[2018-09-13] MEDS: Pantoprazole Sodium 40 MG Tablet PO (05:19)
[2018-09-13] MEDS: Levothyroxine 88 MCG Tablet PO (05:19)
[2018-09-13 05:20] VITALS: BP 139/68; PULSE 67
[2018-09-13] MEDS: Digoxin 125 MCG Tablet PO (05:20)
[2018-09-13] MEDS: Glucerna Shake 120 ML LIQUID PO ×4 (05:20→20:38)
[2018-09-13] MEDS: Polyethylene Glycol 3350 17 GM PACKET PO (05:20)
[2018-09-13] MEDS: Metoprolol Tartrate 25 MG Tablet PO ×2 (05:20→17:13)
[2018-09-13] MEDS: Menthol/Lanolin/Calamine/Znox 113 GM Tube 1 APPLIC TOPICAL ×2 (05:21→20:40)
[2018-09-13] MEDS: Nystatin Powder 15gm Bottle 1 APPLIC TOPICAL ×2 (05:21→20:41)
[2018-09-13 06:36] LABS: Bedside Glucose 195 mg/dL (70-110)
[2018-09-13] MEDS: Multivitamins,Ther W-Minerals Tablet 1 TABLET PO (07:51)
[2018-09-13] MEDS: APIXABAN 5 MG TABLET PO ×2 (07:51→17:09)
[2018-09-13] MEDS: FLUCONAZOLE 150 MG TABLET PO (09:51)
--- NOTE | 2018-09-13 09:52 | NURSING ---
pt c/o itching/irritation to vaginal area. New order to start diflucan. pt updated & agreeable to treatment
[2018-09-13 11:06] LABS: Bedside Glucose 271 mg/dL (70-110)
[2018-09-13 16:00] VITALS: BP 140/72; PULSE 74; RESP 18; TEMP 36.2; O2SAT 95
[2018-09-13 17:13] VITALS: BP 140/72; PULSE 74
[2018-09-13 18:10] LABS: Bedside Glucose 214 mg/dL (70-110)
[2018-09-13] MEDS: MELATONIN 3 MG TABLET 6 MG PO (20:38)
[2018-09-13] MEDS: LINAGLIPTIN 5 MG TABLET PO (20:39)
[2018-09-13] MEDS: Mirtazapine 15 MG Tablet PO (20:39)
[2018-09-13 20:56] LABS: Bedside Glucose 251 mg/dL (70-110)
[2018-09-14] MEDS: Glucerna Shake 120 ML LIQUID PO ×4 (06:20→20:27)
[2018-09-14 06:21] VITALS: BP 135/68; PULSE 75
[2018-09-14] MEDS: Digoxin 125 MCG Tablet PO (06:21)
[2018-09-14] MEDS: Escitalopram Oxalate 10 MG Tablet PO (06:21)
[2018-09-14] MEDS: Metoprolol Tartrate 25 MG Tablet PO ×2 (06:21→17:14)
[2018-09-14] MEDS: Pantoprazole Sodium 40 MG Tablet PO (06:22)
[2018-09-14] MEDS: Ascorbic Acid 500 MG Tablet PO (06:22)
[2018-09-14] MEDS: Febuxostat 40 MG TABLET 80 MG PO (06:22)
[2018-09-14] MEDS: Levothyroxine 88 MCG Tablet PO (06:23)
[2018-09-14] MEDS: Menthol/Lanolin/Calamine/Znox 113 GM Tube 1 APPLIC TOPICAL ×2 (06:24→20:30)
[2018-09-14] MEDS: Nystatin Powder 15gm Bottle 1 APPLIC TOPICAL ×2 (06:25→20:30)
[2018-09-14 06:56] LABS: Bedside Glucose 219 mg/dL (70-110)
[2018-09-14] MEDS: Multivitamins,Ther W-Minerals Tablet 1 TABLET PO (08:19)
[2018-09-14] MEDS: APIXABAN 5 MG TABLET PO ×2 (08:19→17:15)
[2018-09-14 11:15] LABS: Bedside Glucose 312 mg/dL (70-110)
[2018-09-14] MEDS: Acetaminophen 500 MG Tablet 1000 MG PO (14:33)
--- NOTE | 2018-09-14 15:27 | PHA.CONS_ITS ---
<Adrien Carranza - Last Filed: 09/14/18 15:27> Progress Note - Pharmacy Subjective: [] TCU Admission Objective: Allergies exenatide [From Byetta] Allergy (Verified 09/06/18 17:30) Unknown metformin Allergy (Verified 09/06/18 17:30) Rash Penicillins [PCN] Allergy (Verified 09/06/18 17:30) Unknown simvastatin [From Zocor] Adverse Reaction (Severe, Verified 08/18/18 17:17) Myalgias prednisone Adverse Reaction (Unknown, Verified 09/06/18 17:30) effects blood sugar amoxicillin [From Augmentin] Adverse Reaction (Verified 09/06/18 17:30) Diarrhea clavulanic acid [From Augmentin] Adverse Reaction (Verified 09/06/18 17:30) Diarrhea crestor Adverse Reaction (Intermediate, Uncoded 08/18/18 17:17) myalgia Current Medications Generic Name Dose Route Start Last Admin Trade Name Freq PRN Reason Stop Dose Admin Acetaminophen 1,000 mg 09/10/18 16:31 09/14/18 14:33 Tylenol PO 1,000 mg Q6H PRN PRN Administration MILD PAIN (1-3/10) Apixaban 5 mg 09/10/18 17:00 09/14/18 08:19 Eliquis PO 5 mg BID@0800,1700 NELL Administration Ascorbic Acid 500 mg 09/11/18 06:00 09/14/18 06:22 Vitamin C PO 500 mg DAILY NELL Administration Bisacodyl 10 mg 09/10/18 16:11 Dulcolax PO DAILY PRN Constipation Calamine/Phenol 1 applic 09/10/18 22:00 09/14/18 06:24 Calmoseptine Ointment TOPICAL 1 applicatio 0600,2200 NELL Administration Protocol Dextrose 0 gm 09/12/18 01:32 D50w Syringe IV X1 PRN Hypoglycemia Protocol Digoxin 125 mcg 09/11/18 06:00 09/14/18 06:21 Lanoxin PO 125 mcg DAILY NELL Administration Escitalopram Oxalate 10 mg 09/11/18 06:00 09/14/18 06:21 Lexapro PO 10 mg DAILY NELL Administration Fluconazole 150 mg 09/13/18 08:30 09/13/18 09:51 Fluconazole PO 09/19/18 08:31 150 mg Q72H NELL Administration Glucagon 1 mg 09/12/18 01:32 IM .X1 PRN Hypoglycemia Lactobacillus Acidophilus 1 tablet 09/11/18 06:00 09/14/18 06:21 Acidophilus PO 1 tablet DAILY NELL Administration Levothyroxine Sodium 88 mcg 09/11/18 07:00 09/14/18 06:23 Synthroid PO 88 mcg DAILY@0700 NELL Administration Linagliptin 5 mg 09/10/18 22:00 09/13/18 20:39 Tradjenta PO 5 mg QHS NELL Administration Melatonin 6 mg 09/10/18 22:00 09/13/18 20:38 Melatonin PO 6 mg QHS NELL Administration Metoprolol Tartrate 25 mg 09/10/18 18:00 09/14/18 06:21 Lopressor (Beta Prema) PO 25 mg BID NELL Administration Mirtazapine 15 mg 09/10/18 22:00 09/13/18 20:39 Remeron PO 15 mg QHS NELL Administration Multivitamins/Minerals 1 tablet 09/11/18 08:00 09/14/18 08:19 Multivitamin With Minerals PO 1 tablet DAILY@0800 NELL Administration Nutritional Formula 1 packet 09/13/18 17:00 09/14/18 08:19 Jj - Gentry Flavor PO 1 packet BIDCM NELL Administration Nutritional Formula (Lactose Free) 120 ml 09/10/18 17:00 09/14/18 12:24 Glucerna Shake PO 120 ml 4X/DAY NELL Administration Nystatin 1 applic 09/10/18 22:00 09/14/18 06:25 Mycostatin Powder TOPICAL 1 applicatio 0600,2200 NELL Administration Protocol Pantoprazole Sodium 40 mg 09/11/18 06:00 09/14/18 06:22 Protonix PO 40 mg DAILY NELL Administration Polyethylene Glycol 17 gm 09/11/18 06:00 09/14/18 06:22 Miralax PO Not Given DAILY NELL Senna/Docusate Sodium 1 tablet 09/10/18 16:10 Senokot-S, Brenda-Colace PO BID PRN Constipation Tuberculin PPD 5 tu 09/18/18 10:00 Tubersol, Aplisol, Ppd ID 09/18/18 10:01 X1 ONE Problem List (Last Updated 09/07/18 @ 19:31 by Saroj Pena DO) Debility (Acute) Diarrhea (Acute) Viral gastroenteritis (Acute) Dehydration (Acute) Acute kidney injury (Acute) Atrophic vaginitis (Chronic) Vital Signs Temp Pulse Resp BP Pulse Ox 97.1 F L 75 18 135/68 H 95 09/13/18 16:00 09/14/18 06:21 09/13/18 16:00 09/14/18 06:21 09/13/18 16:00 Oxygen Delivery Method Room Air Weight: 68.209 kg Body Mass Index (BMI) 24.3 Finger Stick Blood Glucose 276 Sodium 138 mmol/L (136-145) 09/11/18 06:40 Potassium 4.1 mmol/L (3.5-5.1) 09/11/18 06:40 Chloride 106 mmol/L (98-107) 09/11/18 06:40 Carbon Dioxide 26.0 mmol/L (21.0-32.0) 09/11/18 06:40 6 (5-15) 09/11/18 06:40 BUN 28 mg/dL (7-18) H 09/11/18 06:40 0.67 mg/dL (0.55-1.02) 09/11/18 06:40 Est GFR (MDRD) Af Amer 108 mL/min (>60) 09/11/18 06:40 Est GFR (MDRD) Non-Af 89 mL/min (>60) 09/11/18 06:40 41.9 RATIO (10-20) H 09/11/18 06:40 Glucose 210 mg/dL (74-106) H 09/11/18 06:40 Assessment/Plan: 1) Pain: Acetaminophen 1000mg po q6h prn for mild pain. Please continue to monitor prn usage and for signs/symptoms of increased/decreased pain *2) Gout: Uloric 80mg po daily. The last uric acid level in the chart was from 02/2017. Please consider a yearly uric acid level. -Uloric carries a black box warning for increased risk of cardiac mortality. It is recommended to be used in pts who have failed or are intolerant of allopurinol therapy. 3) Hypothyroidism: Levothyroxine 88mcg po daily. Pt's last TSH (09/2017) was within normal limits. Please continue to monitor. 4) GERD: Pantoprazole 40mg po daily. Please continue to monitor for signs/symptoms of GERD 5) AFib: Metoprolol Tartrate 25mg po bid, Digoxin 125mcg po daily, Eliquis 5mg po bid. 4 out of 5 pulse rhythms have been irregular. Please continue to monitor. The average of the last 10 bp readings for the pt are 137/70.4. Please continue to monitor. 6) Diabetes: Tradjenta 5mg po daily. Pt's average of the last 10 blood sugars is 235.5. Please continue to monitor. Pt's last A1C level (11/2017) was 7.0. Please continue to monitor. Psychotropic Medications: Insomnia: Melatonin 6mg po qhs, Mirtazapine 15mg po qhs. Depression: Escitalopram 10mg po daily, Mirtazapine 15mg po qhs. Pt's weight is holding steady at 68kg. GDR not appropriate at this time due to recent loss of son. Unnecessary Medications: none Bowel Regimen: Bisacodyl 10mg po daily prn for constipation, Miralax 17gm po daily, Senna/Docusate 1 tablet po bid prn for constipation. Please continue to monitor prn usage and for signs/symptoms of constipation/diarrhea Date of Note:: 09/14/18 - Provider Comments Provider responsibility: Provider responsible to enter orders to implement recommendations <Eliseo Jaffe Chi - Last Filed: 09/14/18 20:01> Progress Note - Pharmacy Subjective: [] Objective: Allergies exenatide [From Byetta] Allergy (Verified 09/06/18 17:30) Unknown metformin Allergy (Verified 09/06/18 17:30) Rash Penicillins [PCN] Allergy (Verified 09/06/18 17:30) Unknown simvastatin [From Zocor] Adverse Reaction (Severe, Verified 08/18/18 17:17) Myalgias prednisone Adverse Reaction (Unknown, Verified 09/06/18 17:30) effects blood sugar amoxicillin [From Augmentin] Adverse Reaction (Verified 09/06/18 17:30) Diarrhea clavulanic acid [From Augmentin] Adverse Reaction (Verified 09/06/18 17:30) Diarrhea crestor Adverse Reaction (Intermediate, Uncoded 08/18/18 17:17) myalgia Current Medications Generic Name Dose Route Start Last Admin Trade Name Freq PRN Reason Stop Dose Admin Acetaminophen 1,000 mg 09/10/18 16:31 09/14/18 14:33 Tylenol PO 1,000 mg Q6H PRN PRN Administration MILD PAIN (1-3/10) Apixaban 5 mg 09/10/18 17:00 09/14/18 17:15 Eliquis PO 5 mg BID@0800,1700 NELL Administration Ascorbic Acid 500 mg 09/11/18 06:00 09/14/18 06:22 Vitamin C PO 500 mg DAILY NELL Administration Bisacodyl 10 mg 09/10/18 16:11 Dulcolax PO DAILY PRN Constipation Calamine/Phenol 1 applic 09/10/18 22:00 09/14/18 06:24 Calmoseptine Ointment TOPICAL 1 applicatio 0600,2200 NELL Administration Protocol Dextrose 0 gm 09/12/18 01:32 D50w Syringe IV X1 PRN Hypoglycemia Protocol Digoxin 125 mcg 09/11/18 06:00 09/14/18 06:21 Lanoxin PO 125 mcg DAILY NELL Administration Escitalopram Oxalate 10 mg 09/11/18 06:00 09/14/18 06:21 Lexapro PO 10 mg DAILY NELL Administration Fluconazole 150 mg 09/13/18 08:30 09/13/18 09:51 Fluconazole PO 09/19/18 08:31 150 mg Q72H NELL Administration Glucagon 1 mg 09/12/18 01:32 IM .X1 PRN Hypoglycemia Lactobacillus Acidophilus 1 tablet 09/11/18 06:00 09/14/18 06:21 Acidophilus PO 1 tablet DAILY NELL Administration Levothyroxine Sodium 88 mcg 09/11/18 07:00 09/14/18 06:23 Synthroid PO 88 mcg DAILY@0700 NELL Administration Linagliptin 5 mg 09/10/18 22:00 09/13/18 20:39 Tradjenta PO 5 mg QHS NELL Administration Melatonin 6 mg 09/10/18 22:00 09/13/18 20:38 Melatonin PO 6 mg QHS NELL Administration Metoprolol Tartrate 25 mg 09/10/18 18:00 09/14/18 17:14 Lopressor (Beta Prema) PO 25 mg BID NELL Administration Mirtazapine 15 mg 09/10/18 22:00 09/13/18 20:39 Remeron PO 15 mg QHS NELL Administration Multivitamins/Minerals 1 tablet 09/11/18 08:00 07/30/19 08:19 Multivitamin With Minerals PO 1 tablet DAILY@0800 NELL Administration Nutritional Formula 1 packet 09/13/18 17:00 09/14/18 17:15 Jj - Gentry Flavor PO 1 packet BIDCM NELL Administration Nutritional Formula (Lactose Free) 120 ml 09/10/18 17:00 09/14/18 17:15 Glucerna Shake PO 120 ml 4X/DAY NELL Administration Nystatin 1 applic 09/10/18 22:00 09/14/18 06:25 Mycostatin Powder TOPICAL 1 applicatio 0600,2200 NELL Administration Protocol Pantoprazole Sodium 40 mg 09/11/18 06:00 09/14/18 06:22 Protonix PO 40 mg DAILY NELL Administration Polyethylene Glycol 17 gm 09/11/18 06:00 09/14/18 06:22 Miralax PO Not Given DAILY NELL Senna/Docusate Sodium 1 tablet 09/10/18 16:10 Senokot-S, Brenda-Colace PO BID PRN Constipation Tuberculin PPD 5 tu 09/18/18 10:00 Tubersol, Aplisol, Ppd ID 09/18/18 10:01 X1 ONE Problem List (Last Updated 09/07/18 @ 19:31 by Saroj Pena DO) Debility (Acute) Diarrhea (Acute) Viral gastroenteritis (Acute) Dehydration (Acute) Acute kidney injury (Acute) Atrophic vaginitis (Chronic) Vital Signs Temp Pulse Resp BP Pulse Ox 98.8 F 76 20 H 128/68 H 95 09/14/18 16:00 09/14/18 17:14 09/14/18 16:00 09/14/18 17:14 09/13/18 16:00 Oxygen Flow Rate (L/min) 95 Oxygen Delivery Method Room Air Weight: 68.209 kg Body Mass Index (BMI) 24.3 Finger Stick Blood Glucose 276 Sodium 138 mmol/L (136-145) 09/11/18 06:40 Potassium 4.1 mmol/L (3.5-5.1) 09/11/18 06:40 Chloride 106 mmol/L (98-107) 09/11/18 06:40 Carbon Dioxide 26.0 mmol/L (21.0-32.0) 09/11/18 06:40 6 (5-15) 09/11/18 06:40 BUN 28 mg/dL (7-18) H 09/11/18 06:40 0.67 mg/dL (0.55-1.02) 09/11/18 06:40 Est GFR (MDRD) Af Amer 108 mL/min (>60) 09/11/18 06:40 Est GFR (MDRD) Non-Af 89 mL/min (>60) 09/11/18 06:40 41.9 RATIO (10-20) H 09/11/18 06:40 Glucose 210 mg/dL (74-106) H 09/11/18 06:40 Assessment/Plan: Psychotropic Medications: Unnecessary Medications: Bowel Regimen: - Provider Comments Provider responsibility: Provider responsible to enter orders to implement recommendations Provider Comments to Recommendations by Pharmacy: Agree
[2018-09-14 16:00] VITALS: BP 128/68; PULSE 76; RESP 20; TEMP 37.1
[2018-09-14 17:01] LABS: Bedside Glucose 221 mg/dL (70-110)
[2018-09-14 17:14] VITALS: BP 128/68; PULSE 76
--- NOTE | 2018-09-14 19:55 | PN_ITS ---
Subjective: Resident seen in room, sitting in recliner. She is here for procedure only. She has right rotator cuff strain. After informed consent, the area was prepped and draped in sterile manner. Anesthesia with Vapocoolant spray, right subacromial bursa injected with Kenalog 40MG, Lidocaine 1% 1ML, resident tolerated procedure well. Band aid applied. Vitals/I&O's: Vital Signs Temp Pulse Resp BP Pulse Ox 98.8 F 76 20 H 128/68 H 95 09/14/18 16:00 09/14/18 17:14 09/14/18 16:00 09/14/18 17:14 09/13/18 16:00 Oxygen Flow Rate (L/min) 95 Oxygen Delivery Method Room Air Weight: 68.209 kg Body Mass Index (BMI) 24.3 Finger Stick Blood Glucose 276 Intake and Output for Last 24 Hours 09/12/18 09/13/18 09/14/18 23:59 23:59 23:59 Intake Total 1080 / 1080 540 / 540 660 / 660 Balance 1080 / 1080 540 / 540 660 / 660 Laboratory Results 09/13/18 20:44: POC Glucose 251 H 09/14/18 06:34: POC Glucose 219 H 09/14/18 11:01: POC Glucose 312 H 09/14/18 16:53: POC Glucose 221 H Past Medical History Past Medical History (Chronic Problems): Chronic Problems (Last Updated 09/07/18 @ 19:31 by Saroj Pena DO) Depression (Chronic) Atrophic vaginitis (Chronic) CKD (chronic kidney disease) stage 3, GFR 30-59 ml/min (Chronic) Chronic kidney disease (Chronic) Chronic diastolic heart failure (Chronic) Diabetes mellitus (Chronic) Gout (Chronic) Recurrent UTI (Chronic) Sick sinus syndrome (Chronic) Atrial fibrillation (Chronic) Cardiomyopathy, nonischemic (Chronic) HLD (hyperlipidemia) (Chronic) HTN (hypertension) (Chronic) Hypothyroidism (Chronic) Hypokalemia (Chronic) Chronic diastolic (congestive) heart failure (Chronic) Iron deficiency anemia (Chronic) GERD (gastroesophageal reflux disease) (Chronic) Cardiac pacemaker in situ (Chronic) DM2 (diabetes mellitus, type 2) (Chronic) CHF (congestive heart failure) (Chronic) Pulmonary hypertension (Chronic) Medical History: Medical History (Last Updated 09/07/18 @ 19:31 by Saroj Pena DO) Fracture of right femur (Resolved) S72.91XA Sick sinus syndrome (Chronic) I49.5 Atrial fibrillation (Chronic) I48.91 Cardiomyopathy, nonischemic (Chronic) I42.8 HLD (hyperlipidemia) (Chronic) E78.5 HTN (hypertension) (Chronic) I10 Hypothyroidism (Chronic) E03.9 Hypokalemia (Chronic) E87.6 Chronic diastolic (congestive) heart failure (Chronic) I50.32 Edema (Resolved) R60.9 Acute deep vein thrombosis (DVT) of left lower extremity (Resolved) I82.402 Iron deficiency anemia (Chronic) D50.9 GERD (gastroesophageal reflux disease) (Chronic) K21.9 Cardiac pacemaker in situ (Chronic) Z95.0 Hypotension (Resolved) I95.9 UTI (urinary tract infection) (Resolved) N39.0 DM2 (diabetes mellitus, type 2) (Chronic) E11.9 CHF (congestive heart failure) (Chronic) I50.9 Pulmonary hypertension (Chronic) I27.2 Acute kidney injury N17.9 Chronic diarrhea K52.9 Cystitis N30.90 Dementia F03.90 Depression F32.9 Encephalopathy G93.40 Gout M10.9 Postoperative anemia D64.9 H/O: hysterectomy Z90.710 Acute kidney injury (Inactive) N17.9 Afib (Inactive) I48.91 Chronic diarrhea (Inactive) K52.9 Cystitis (Inactive) N30.90 no culture obtained DVT of axillary vein, acute left (Inactive) I82.A12 Dementia (Inactive) F03.90 Depression (Inactive) F32.9 Diarrhea (Inactive) R19.7 Dvt femoral (deep venous thrombosis) (Inactive) I82.419 left leg Encephalopathy (Inactive) G93.40 Fall (Inactive) W19.XXXA Gout (Inactive) M10.9 Muscle spasm (Inactive) M62.838 Pacemaker (Inactive) Z95.0 Postoperative anemia (Inactive) D64.9 Thrush (Inactive) B37.0 Allergies exenatide [From Byetta] Allergy (Verified 09/06/18 17:30) Unknown metformin Allergy (Verified 09/06/18 17:30) Rash Penicillins [PCN] Allergy (Verified 09/06/18 17:30) Unknown simvastatin [From Zocor] Adverse Reaction (Severe, Verified 08/18/18 17:17) Myalgias prednisone Adverse Reaction (Unknown, Verified 09/06/18 17:30) effects blood sugar amoxicillin [From Augmentin] Adverse Reaction (Verified 09/06/18 17:30) Diarrhea clavulanic acid [From Augmentin] Adverse Reaction (Verified 09/06/18 17:30) Diarrhea crestor Adverse Reaction (Intermediate, Uncoded 08/18/18 17:17) myalgia Home Medications: Ambulatory Orders Medication Instructions Recorded Linagliptin [Tradjenta] 5 mg PO QHS 04/28/18 Apixaban [Eliquis] 5 mg PO BID 04/30/18 Ascorbic Acid [Vitamin C] 500 mg PO DAILY 08/18/18 Febuxostat [Uloric] 80 mg PO DAILY 08/18/18 L.acidoph,Paracasei, B.lactis 1 ea PO DAILY 08/18/18 [Probiotic] Melatonin 6 mg PO QHS 08/18/18 Pantoprazole Sodium [Protonix] 40 mg PO DAILY 08/18/18 Digoxin 125 mcg PO DAILY 09/06/18 Levothyroxine [Synthroid] 88 mcg PO DAILY@0700 09/06/18 Metoprolol Tartrate [Lopressor 25 mg PO BID 09/06/18 (beta chanel)] Mirtazapine 15 mg PO QHS 09/06/18 Multivitamin with Minerals 1 tab PO DAILY 09/06/18 [Multiple Vitamin] Acetaminophen [Tylenol Tablet] 650 mg PO Q6H PRN PRN tab 09/10/18 Escitalopram Oxalate [Lexapro] 10 mg PO DAILY 09/10/18 Glucerna Shake 120 ml PO 4X/DAY 09/10/18 Menthol/Lanolin/Calamine/Znox 1 applic TOPICAL BID 09/10/18 [Calmoseptine Ointment] Nystatin Powder [Mycostatin Powder] 1 applic TOPICAL BID 09/10/18 Surgical History: Surgical History (Last Reviewed 08/18/18 @ 19:25 by John Barrientos DO) History of bilateral knee replacement Z96.653 History of cholecystectomy Z90.49 Presence of vena cava filter Z95.828 implantation pacemakr pacemaker generator change Surgical History: cholecystectomy, hysterectomy, pacemaker implantation, total knee arthroplasty - Bilateral., - - IVC filter, right hip fracture repair. Psychiatric History: Anxiety, Depression TABLEAU ANALYST History: No pertinent TABLEAU ANALYST history Lives: Alone Smoking Status: Never smoker Tobacco Use: Non-smoker Alcohol: None Drugs: None - *Family History Paternal Family History: Family History (Last Reviewed 08/18/18 @ 19:25 by John Barrientos DO) Father Myocardial infarction History Items: Heart Disease Maternal Family History: Family History (Last Reviewed 08/18/18 @ 19:25 by John Barrientos DO) Father Myocardial infarction History Items: - - No marked maternal family history including heart disease, diabetes or cancer. Capacity - Capacity Assessment Tool Can the patient make a choice & communicate that choice?: Yes Can the patient understand benefits, risks and alternatives?: Yes Can the patient make a logical, rational choice?: Yes Is the choice the patient makes consistent w/ their values?: Yes Is there an impending, emergent risk to the patient?: No Does the patient have an Advance Directive?: Yes Is there a Surrogate Available?: Yes i.e. HCPOA: Yes i.e. close relative (spouse, child, parent, sibling)?: Yes Patient Problems: Active and Suspected Problems (Last Updated 09/07/18 @ 19:31 by Saroj Pena DO) Debility (Acute) Diarrhea (Acute) Viral gastroenteritis (Acute) Dehydration (Acute) Acute kidney injury (Acute) - Physical Exam Vital Signs Temp Pulse Resp BP Pulse Ox 98.8 F 76 20 H 128/68 H 95 09/14/18 16:00 09/14/18 17:14 09/14/18 16:00 09/14/18 17:14 09/13/18 16:00 Oxygen Flow Rate (L/min) 95 Oxygen Delivery Method Room Air Weight: 68.209 kg Body Mass Index (BMI) 24.3 Finger Stick Blood Glucose 276 Intake and Output for Last 24 Hours 09/12/18 09/13/18 09/14/18 23:59 23:59 23:59 Intake Total 1080 / 1080 540 / 540 660 / 660 Balance 1080 / 1080 540 / 540 660 / 660 POC Glucose 09/14/18 09/14/18 09/14/18 16:53 11:01 06:34 POC Glucose 221 H 312 H 219 H 09/13/18 20:44 POC Glucose 251 H Assessment/Plan All Active Problems (Last Updated 09/07/18 @ 19:31 by Saroj Tereletsky, DO) Debility (Acute) Diarrhea (Acute) Viral gastroenteritis (Acute) Dehydration (Acute) Acute kidney injury (Acute) Elevated lactic acid level (Resolved) Fall (Resolved) UTI (urinary tract infection) (Resolved) Metabolic encephalopathy (Resolved) Acute gastroenteritis (Acute) Blister of right heel (Acute) Dyspnea, unspecified (Resolved) Palpitations (Resolved) Syncope and collapse (Resolved) Chest pain (Resolved) Fatigue (Resolved) Fracture of right femur (Resolved) Edema (Resolved) Acute deep vein thrombosis (DVT) of left lower extremity (Resolved) Hypotension (Resolved) UTI (urinary tract infection) (Resolved) 83 year old female with below past medical history hospitalized for diarrhea secondary to acute gastroenteritis, admitted to TCU with debility, here for rehabilitation, strengthening, prior to discharge home alone. * Rotator cuff tendinopathy - Right subacromial bursa injected as documented above.
[2018-09-14] MEDS: MELATONIN 3 MG TABLET 6 MG PO (20:28)
[2018-09-14] MEDS: Mirtazapine 15 MG Tablet PO (20:28)
[2018-09-14] MEDS: LINAGLIPTIN 5 MG TABLET PO (20:29)
[2018-09-14 21:06] LABS: Bedside Glucose 406 mg/dL (70-110)
[2018-09-15 05:53] VITALS: BP 161/94; PULSE 74
[2018-09-15] MEDS: Escitalopram Oxalate 10 MG Tablet PO (05:53)
[2018-09-15] MEDS: Ascorbic Acid 500 MG Tablet PO (05:53)
[2018-09-15] MEDS: Metoprolol Tartrate 25 MG Tablet PO ×2 (05:53→17:29)
[2018-09-15] MEDS: Pantoprazole Sodium 40 MG Tablet PO (05:53)
[2018-09-15] MEDS: Febuxostat 40 MG TABLET 80 MG PO (05:53)
[2018-09-15] MEDS: Levothyroxine 88 MCG Tablet PO (05:53)
[2018-09-15 05:54] VITALS: BP 161/94; PULSE 74
[2018-09-15] MEDS: Digoxin 125 MCG Tablet PO (05:54)
[2018-09-15] MEDS: Nystatin Powder 15gm Bottle 1 APPLIC TOPICAL ×2 (05:57→20:59)
[2018-09-15] MEDS: Menthol/Lanolin/Calamine/Znox 113 GM Tube 1 APPLIC TOPICAL ×2 (05:57→20:58)
[2018-09-15 06:41] LABS: Uric Acid 2.6 mg/dL (2.6-6.0)
[2018-09-15 06:45] LABS: Bedside Glucose 409 mg/dL (70-110)
[2018-09-15] MEDS: Multivitamins,Ther W-Minerals Tablet 1 TABLET PO (08:05)
[2018-09-15] MEDS: APIXABAN 5 MG TABLET PO ×2 (08:05→17:29)
--- NOTE | 2018-09-15 08:29 | NURSING ---
New order for Humalog 10 units SC x1 now.
[2018-09-15] MEDS: Insulin Lispro 100 UNIT/ML INSULN.PEN 10 UNIT SC ×2 (09:30→17:30)
[2018-09-15 11:11] LABS: Bedside Glucose 474 mg/dL (70-110)
[2018-09-15] MEDS: Insulin Lispro 100 UNIT/ML INSULN.PEN 20 UNIT SC (12:02)
[2018-09-15] MEDS: Glucerna Shake 120 ML LIQUID PO ×3 (12:09→20:58)
--- NOTE | 2018-09-15 13:57 | CASEMGMT ---
Social Work IDT met with patient and son for care plan meeting. Discussed patient's progress in therapy. Pt is mod to max assist for toileting and lower body dressing and bathing r/t WBS, but able to walk 40 ft with CGA. Pt receiving daily wound dressing changes. Pt's goal is to return home, but understands she will need to hire private duty aides to assist. Provided private duty and MOW resources to son. Explained insurance coverage, next update 09/16 and will notify pt and son of outcome. Both understand continued stay is not guaranteed. Will continue to follow. KELSEY Edward COCOA ROOM OPERATOR
[2018-09-15 15:41] VITALS: BP 123/70; PULSE 68; RESP 18; TEMP 36.8; O2SAT 95
[2018-09-15 17:10] LABS: Bedside Glucose 383 mg/dL (70-110)
[2018-09-15 17:29] VITALS: BP 123/70; PULSE 68
--- NOTE | 2018-09-15 17:42 | NURSING ---
Dinner time BS 383, Dr. Jaffe notified, new order to give 10 units of humalog x1.
[2018-09-15] MEDS: LINAGLIPTIN 5 MG TABLET PO (20:57)
[2018-09-15] MEDS: MELATONIN 3 MG TABLET 6 MG PO (20:57)
[2018-09-15] MEDS: Mirtazapine 15 MG Tablet PO (20:58)
[2018-09-15 21:21] LABS: Bedside Glucose 359 mg/dL (70-110)
[2018-09-16 05:09] VITALS: BP 161/74; PULSE 73
[2018-09-16] MEDS: Digoxin 125 MCG Tablet PO (05:09)
[2018-09-16] MEDS: Levothyroxine 88 MCG Tablet PO (05:09)
[2018-09-16] MEDS: Metoprolol Tartrate 25 MG Tablet PO ×2 (05:09→17:31)
[2018-09-16] MEDS: Ascorbic Acid 500 MG Tablet PO (05:09)
[2018-09-16] MEDS: Escitalopram Oxalate 10 MG Tablet PO (05:09)
[2018-09-16] MEDS: Pantoprazole Sodium 40 MG Tablet PO (05:09)
[2018-09-16] MEDS: Febuxostat 40 MG TABLET 80 MG PO (05:09)
[2018-09-16] MEDS: Menthol/Lanolin/Calamine/Znox 113 GM Tube 1 APPLIC TOPICAL ×2 (05:11→20:21)
[2018-09-16] MEDS: Glucerna Shake 120 ML LIQUID PO ×4 (05:11→20:19)
[2018-09-16] MEDS: Nystatin Powder 15gm Bottle 1 APPLIC TOPICAL ×2 (05:11→20:21)
[2018-09-16 06:16] LABS: Bedside Glucose 376 mg/dL (70-110)
[2018-09-16] MEDS: FLUCONAZOLE 150 MG TABLET PO (07:53)
[2018-09-16] MEDS: Multivitamins,Ther W-Minerals Tablet 1 TABLET PO (07:53)
[2018-09-16] MEDS: APIXABAN 5 MG TABLET PO ×2 (07:53→17:31)
[2018-09-16] MEDS: Insulin Lispro 100 UNIT/ML INSULN.PEN 10 UNIT SC ×3 (09:01→17:31)
--- NOTE | 2018-09-16 11:08 | CASEMGMT ---
Insurance: Clinical update faxed to [facility] this day. Auth# [id number]
[2018-09-16 11:21] LABS: Bedside Glucose 346 mg/dL (70-110)
--- NOTE | 2018-09-16 11:58 | MDS.RN ---
Pain interview for dinh 09/17/18 completed.
[2018-09-16 16:00] VITALS: BP 132/68; PULSE 74; RESP 16; TEMP 36.8; O2SAT 93
[2018-09-16 17:16] LABS: Bedside Glucose 305 mg/dL (70-110)
[2018-09-16 17:31] VITALS: PULSE 74
[2018-09-16] MEDS: LINAGLIPTIN 5 MG TABLET PO (20:19)
[2018-09-16] MEDS: MELATONIN 3 MG TABLET 6 MG PO (20:20)
[2018-09-16] MEDS: Mirtazapine 15 MG Tablet PO (20:20)
[2018-09-16 21:16] LABS: Bedside Glucose 422 mg/dL (70-110)
--- NOTE | 2018-09-16 21:32 | NURSING ---
Dr Jaffe aware of HS blood sugar 422, N.O. Humalog 15 units X1.
[2018-09-16] MEDS: Insulin Lispro 100 UNIT/ML INSULN.PEN 15 UNIT SC (21:47)
[2018-09-17] MEDS: Ascorbic Acid 500 MG Tablet PO (05:10)
[2018-09-17] MEDS: Levothyroxine 88 MCG Tablet PO (05:10)
[2018-09-17 05:11] VITALS: PULSE 70
[2018-09-17] MEDS: Glucerna Shake 120 ML LIQUID PO ×4 (05:11→21:58)
[2018-09-17] MEDS: Digoxin 125 MCG Tablet PO (05:11)
[2018-09-17 05:12] VITALS: BP 160/81; PULSE 70
[2018-09-17] MEDS: Menthol/Lanolin/Calamine/Znox 113 GM Tube 1 APPLIC TOPICAL ×2 (05:12→22:05)
[2018-09-17] MEDS: Pantoprazole Sodium 40 MG Tablet PO (05:12)
[2018-09-17] MEDS: Metoprolol Tartrate 25 MG Tablet PO ×2 (05:12→17:24)
[2018-09-17] MEDS: Nystatin Powder 15gm Bottle 1 APPLIC TOPICAL ×2 (05:12→22:06)
[2018-09-17] MEDS: Escitalopram Oxalate 10 MG Tablet PO (05:12)
[2018-09-17] MEDS: Febuxostat 40 MG TABLET 80 MG PO (05:12)
[2018-09-17] MEDS: APIXABAN 5 MG TABLET PO ×2 (08:46→17:24)
[2018-09-17] MEDS: Multivitamins,Ther W-Minerals Tablet 1 TABLET PO (08:46)
[2018-09-17] MEDS: Insulin Lispro 100 UNIT/ML INSULN.PEN 13 UNIT SC ×3 (08:47→17:24)
--- NOTE | 2018-09-17 09:22 | CASEMGMT ---
Social Work BIMS and PHQ-9 completed for MDS assessment. Vane Lee, MANAGER INVESTMENT BANKING VESSEL SLAG WORKER
[2018-09-17 10:56] LABS: Bedside Glucose 276 mg/dL (70-110)
--- NOTE | 2018-09-17 15:30 | NURSING ---
Patient declined to have right foot dressing changed, stating it was just changed early this morning.
[2018-09-17 16:00] VITALS: BP 138/56; PULSE 82; RESP 18; TEMP 37; O2SAT 96
[2018-09-17 17:24] VITALS: BP 138/56; PULSE 82
[2018-09-17 17:31] LABS: Bedside Glucose 240 mg/dL (70-110)
[2018-09-17 21:45] LABS: Bedside Glucose 259 mg/dL (70-110)
[2018-09-17] MEDS: LINAGLIPTIN 5 MG TABLET PO (21:59)
[2018-09-17] MEDS: MELATONIN 3 MG TABLET 6 MG PO (21:59)
[2018-09-17] MEDS: Mirtazapine 15 MG Tablet PO (22:00)
[2018-09-18] MEDS: Menthol/Lanolin/Calamine/Znox 113 GM Tube 1 APPLIC TOPICAL ×2 (06:25→22:00)
[2018-09-18] MEDS: Glucerna Shake 120 ML LIQUID PO ×4 (06:25→21:56)
[2018-09-18 06:26] VITALS: BP 140/69; PULSE 69
[2018-09-18] MEDS: Digoxin 125 MCG Tablet PO (06:26)
[2018-09-18] MEDS: Escitalopram Oxalate 10 MG Tablet PO (06:26)
[2018-09-18 06:27] VITALS: BP 140/69; PULSE 69
[2018-09-18] MEDS: Pantoprazole Sodium 40 MG Tablet PO (06:27)
[2018-09-18] MEDS: Metoprolol Tartrate 25 MG Tablet PO ×2 (06:27→17:07)
[2018-09-18] MEDS: Febuxostat 40 MG TABLET 80 MG PO (06:27)
[2018-09-18] MEDS: Levothyroxine 88 MCG Tablet PO (06:27)
[2018-09-18] MEDS: Ascorbic Acid 500 MG Tablet PO (06:28)
[2018-09-18] MEDS: Nystatin Powder 15gm Bottle 1 APPLIC TOPICAL ×2 (06:31→22:00)
[2018-09-18 06:41] LABS: Bedside Glucose 113 mg/dL (70-110)
[2018-09-18] MEDS: Multivitamins,Ther W-Minerals Tablet 1 TABLET PO (08:21)
[2018-09-18] MEDS: APIXABAN 5 MG TABLET PO ×2 (08:21→17:06)
[2018-09-18] MEDS: Insulin Lispro 100 UNIT/ML INSULN.PEN 13 UNIT SC (08:22)
[2018-09-18 08:35] LABS: Absolute Lymphocyte Count 0.88 X10^3/uL (0.83-4.51); Absolute Neutrophil Count 7.3 X10^3/uL (2.0-7.7); Basophil# 0.01 X10^3/uL; Basophil% 0.1 % (0-1); Eosinophil# 0.04 X10^3/uL; Eosinophils% 0.4 % (0-5); Hematocrit 47.3 % (37-47); Hemoglobin 15.5 g/dL (12.0-15.0); Lymphocyte # 0.88 X10^3/ul (4.0); Lymphocyte % 9.6 % (19-41); Mean Corp Hgb Conc 32.8 g/dL (32-36); Mean Corpuscular Hgb 28.4 pg (27.0-32.0); Mean Corpuscular Volume 86.6 fL (81-99); Mean Platelet Vol. 10.4 fl (6.2-12.0); Monocyte# 0.91 X10^3/uL; Monocyte% 9.9 % (0-10); NRBC Flagged by Analyzer 0 % (0-5); Neutrophil # 7.29 X10^3/uL (2.7-7.7); Neutrophil % 79.3 % (47-70); Platelet Count 221 K/mm3 (150-450); RBC Distribution Width CV 14.2 % (11.6-14.6); RBC Distribution Width SD 45.1 fl (35.1-43.9); Red Blood Count 5.46 M/mm3 (4.2-5.4); White Blood Count 9.2 K/mm3 (4.4-11.0)
[2018-09-18 08:48] LABS: Anion Gap 6 (5-15); BUN 49 mg/dL (7-18); Calcium,Total 9.6 mg/dL (8.5-10.1); Chloride 106 mmol/L (98-107); EST Glomerular Filtration Rate 85 mL/min (>60); Est Glom Filt Rate - Afr Amer 103 mL/min (>60); Glucose 112 mg/dL (74-106); Potassium 4.1 mmol/L (3.5-5.1); Sodium Level 138 mmol/L (136-145)
[2018-09-18] MEDS: Tuberculin,Purif.prot.deriv. 50 TU/ML Vial 5 ML ID (09:37)
[2018-09-18 11:20] LABS: Bedside Glucose 109 mg/dL (70-110)
[2018-09-18 15:46] VITALS: BP 139/63; PULSE 75; RESP 18; TEMP 37.1
[2018-09-18 17:07] VITALS: BP 139/63; PULSE 75
[2018-09-18 17:10] LABS: Bedside Glucose 172 mg/dL (70-110)
[2018-09-18 21:31] LABS: Bedside Glucose 271 mg/dL (70-110)
[2018-09-18] MEDS: Mirtazapine 15 MG Tablet PO (21:59)
[2018-09-18] MEDS: LINAGLIPTIN 5 MG TABLET PO (21:59)
[2018-09-18] MEDS: MELATONIN 3 MG TABLET 6 MG PO (21:59)
[2018-09-19] MEDS: Pantoprazole Sodium 40 MG Tablet PO (05:14)
[2018-09-19] MEDS: Levothyroxine 88 MCG Tablet PO (05:14)
[2018-09-19] MEDS: Escitalopram Oxalate 10 MG Tablet PO (05:14)
[2018-09-19] MEDS: Febuxostat 40 MG TABLET 80 MG PO (05:14)
[2018-09-19 05:15] VITALS: BP 138/73; PULSE 67
[2018-09-19] MEDS: Digoxin 125 MCG Tablet PO (05:15)
[2018-09-19] MEDS: Ascorbic Acid 500 MG Tablet PO (05:15)
[2018-09-19 05:16] VITALS: BP 138/73; PULSE 67
[2018-09-19] MEDS: Metoprolol Tartrate 25 MG Tablet PO ×2 (05:16→17:19)
[2018-09-19] MEDS: Glucerna Shake 120 ML LIQUID PO ×4 (05:16→19:37)
[2018-09-19] MEDS: Polyethylene Glycol 3350 17 GM PACKET PO (05:22)
[2018-09-19] MEDS: Menthol/Lanolin/Calamine/Znox 113 GM Tube 1 APPLIC TOPICAL ×2 (05:22→19:37)
[2018-09-19] MEDS: Nystatin Powder 15gm Bottle 1 APPLIC TOPICAL ×2 (05:22→19:38)
[2018-09-19 07:06] LABS: Bedside Glucose 137 mg/dL (70-110)
[2018-09-19] MEDS: APIXABAN 5 MG TABLET PO ×2 (08:33→17:19)
[2018-09-19] MEDS: Multivitamins,Ther W-Minerals Tablet 1 TABLET PO (08:33)
[2018-09-19] MEDS: FLUCONAZOLE 150 MG TABLET PO (08:33)
[2018-09-19 10:51] LABS: Bedside Glucose 243 mg/dL (70-110)
[2018-09-19 16:00] VITALS: BP 136/77; PULSE 69; RESP 20; TEMP 36.5; O2SAT 96
[2018-09-19 17:19] VITALS: BP 136/77; PULSE 69
[2018-09-19 17:40] LABS: Bedside Glucose 211 mg/dL (70-110)
[2018-09-19] MEDS: MELATONIN 3 MG TABLET 6 MG PO (21:36)
[2018-09-19] MEDS: Mirtazapine 15 MG Tablet PO (21:36)
[2018-09-19] MEDS: LINAGLIPTIN 5 MG TABLET PO (21:36)
[2018-09-19 21:40] LABS: Bedside Glucose 388 mg/dL (70-110)
[2018-09-20] MEDS: Glucerna Shake 120 ML LIQUID PO ×3 (05:26→16:56)
[2018-09-20 05:27] VITALS: BP 130/76; PULSE 82
[2018-09-20] MEDS: Escitalopram Oxalate 10 MG Tablet PO (05:27)
[2018-09-20] MEDS: Senna/Docusate Sodium 1 Tablet PO (05:27)
[2018-09-20] MEDS: Metoprolol Tartrate 25 MG Tablet PO ×2 (05:27→16:57)
[2018-09-20] MEDS: Digoxin 125 MCG Tablet PO (05:27)
[2018-09-20] MEDS: Febuxostat 40 MG TABLET 80 MG PO (05:27)
[2018-09-20] MEDS: Ascorbic Acid 500 MG Tablet PO (05:28)
[2018-09-20] MEDS: Levothyroxine 88 MCG Tablet PO (05:28)
[2018-09-20] MEDS: Pantoprazole Sodium 40 MG Tablet PO (05:28)
[2018-09-20] MEDS: Polyethylene Glycol 3350 17 GM PACKET PO (05:28)
[2018-09-20] MEDS: Menthol/Lanolin/Calamine/Znox 113 GM Tube 1 APPLIC TOPICAL ×2 (05:33→19:46)
[2018-09-20] MEDS: Nystatin Powder 15gm Bottle 1 APPLIC TOPICAL ×2 (05:34→19:46)
[2018-09-20 06:25] LABS: Bedside Glucose 194 mg/dL (70-110)
[2018-09-20] MEDS: APIXABAN 5 MG TABLET PO ×2 (08:27→16:57)
[2018-09-20] MEDS: Multivitamins,Ther W-Minerals Tablet 1 TABLET PO (08:27)
--- NOTE | 2018-09-20 10:37 | CASEMGMT ---
Insurance: Next update due 09/23/18. Auth #[id number]
[2018-09-20 11:01] LABS: Bedside Glucose 265 mg/dL (70-110)
[2018-09-20 15:43] VITALS: BP 139/68; PULSE 78; RESP 22; TEMP 37.2; O2SAT 95
[2018-09-20 16:57] VITALS: BP 139/68; PULSE 78
[2018-09-20 17:16] LABS: Bedside Glucose 275 mg/dL (70-110)
[2018-09-20] MEDS: Mirtazapine 15 MG Tablet PO (19:46)
[2018-09-20] MEDS: LINAGLIPTIN 5 MG TABLET PO (19:46)
[2018-09-20] MEDS: MELATONIN 3 MG TABLET 6 MG PO (21:13)
[2018-09-20 21:51] LABS: Bedside Glucose 338 mg/dL (70-110)
[2018-09-21] MEDS: Menthol/Lanolin/Calamine/Znox 113 GM Tube 1 APPLIC TOPICAL ×2 (05:01→20:04)
[2018-09-21] MEDS: Polyethylene Glycol 3350 17 GM PACKET PO (05:02)
[2018-09-21 05:03] VITALS: BP 150/75; PULSE 75
[2018-09-21] MEDS: Febuxostat 40 MG TABLET 80 MG PO (05:03)
[2018-09-21] MEDS: Metoprolol Tartrate 25 MG Tablet PO ×2 (05:03→16:37)
[2018-09-21] MEDS: Ascorbic Acid 500 MG Tablet PO (05:03)
[2018-09-21] MEDS: Levothyroxine 88 MCG Tablet PO (05:03)
[2018-09-21] MEDS: Pantoprazole Sodium 40 MG Tablet PO (05:03)
[2018-09-21] MEDS: Digoxin 125 MCG Tablet PO (05:03)
[2018-09-21] MEDS: Escitalopram Oxalate 10 MG Tablet PO (05:04)
[2018-09-21] MEDS: Nystatin Powder 15gm Bottle 1 APPLIC TOPICAL ×2 (05:04→20:03)
[2018-09-21] MEDS: FLUCONAZOLE 150 MG TABLET PO (05:06)
[2018-09-21 06:41] LABS: Bedside Glucose 210 mg/dL (70-110)
[2018-09-21] MEDS: Multivitamins,Ther W-Minerals Tablet 1 TABLET PO (08:04)
[2018-09-21] MEDS: APIXABAN 5 MG TABLET PO ×2 (08:04→16:37)
[2018-09-21] MEDS: Glucerna Shake 120 ML LIQUID PO ×3 (11:11→20:03)
[2018-09-21 11:46] LABS: Bedside Glucose 259 mg/dL (70-110)
--- NOTE | 2018-09-21 12:56 | CASEMGMT ---
Addendum entered by Vane Lee 09/22/18 12:50: Son scheduled appt with Palliative Care 09/24 at 1 pm. Original Note: Social Work Notified pt and son about insurance extending with another update 09/23. Spoke with son about following up with Palliative care as [facility] has left several messages to schedule a meeting. Son stated he will call to schedule appt today. Inquired about f/u on private aide resources - son stated he was waiting to get a better timeframe on DC plans - encouraged to start calling to gather information and get on waitlists, if needed. Will continue to follow for DC plans. Vane Lee, KELSEY KAMARAW
[2018-09-21 16:00] VITALS: BP 131/73; PULSE 77; RESP 18; TEMP 36.8; O2SAT 93
[2018-09-21 16:37] VITALS: PULSE 77
[2018-09-21 17:16] LABS: Bedside Glucose 431 mg/dL (70-110)
[2018-09-21] MEDS: Insulin Lispro 100 UNIT/ML INSULN.PEN 10 UNIT SC (18:02)
[2018-09-21] MEDS: MELATONIN 3 MG TABLET 6 MG PO (20:04)
[2018-09-21] MEDS: Mirtazapine 15 MG Tablet PO (20:06)
[2018-09-21] MEDS: LINAGLIPTIN 5 MG TABLET PO (20:06)
[2018-09-21 21:21] LABS: Bedside Glucose 392 mg/dL (70-110)
[2018-09-22] MEDS: Menthol/Lanolin/Calamine/Znox 113 GM Tube 1 APPLIC TOPICAL ×2 (05:50→20:24)
[2018-09-22] MEDS: Polyethylene Glycol 3350 17 GM PACKET PO (05:50)
[2018-09-22] MEDS: Glucerna Shake 120 ML LIQUID PO ×4 (05:50→20:25)
[2018-09-22] MEDS: Ascorbic Acid 500 MG Tablet PO (05:51)
[2018-09-22] MEDS: Levothyroxine 88 MCG Tablet PO (05:51)
[2018-09-22] MEDS: Escitalopram Oxalate 10 MG Tablet PO (05:52)
[2018-09-22] MEDS: Pantoprazole Sodium 40 MG Tablet PO (05:52)
[2018-09-22] MEDS: Febuxostat 40 MG TABLET 80 MG PO (05:52)
[2018-09-22 05:53] VITALS: BP 142/65; PULSE 88
[2018-09-22] MEDS: FLUCONAZOLE 150 MG TABLET PO (05:53)
[2018-09-22] MEDS: Digoxin 125 MCG Tablet PO (05:53)
[2018-09-22] MEDS: Metoprolol Tartrate 25 MG Tablet PO ×2 (05:53→16:19)
[2018-09-22] MEDS: Nystatin Powder 15gm Bottle 1 APPLIC TOPICAL ×2 (05:53→20:25)
[2018-09-22 06:46] LABS: Bedside Glucose 146 mg/dL (70-110)
--- NOTE | 2018-09-22 07:04 | MDS.RN ---
Information for the mds was obtained from review of the clinical record, interview of resident, staff, and direct observation of resident's care.
[2018-09-22] MEDS: APIXABAN 5 MG TABLET PO ×2 (08:23→16:19)
[2018-09-22] MEDS: Multivitamins,Ther W-Minerals Tablet 1 TABLET PO (08:23)
[2018-09-22 11:15] LABS: Bedside Glucose 147 mg/dL (70-110)
[2018-09-22 16:00] VITALS: BP 123/70; PULSE 75; RESP 20; TEMP 36.8; O2SAT 97
[2018-09-22 16:19] VITALS: BP 123/70; PULSE 75
[2018-09-22 17:11] LABS: Bedside Glucose 234 mg/dL (70-110)
[2018-09-22] MEDS: MELATONIN 3 MG TABLET 6 MG PO (20:24)
[2018-09-22] MEDS: LINAGLIPTIN 5 MG TABLET PO (20:24)
[2018-09-22] MEDS: Mirtazapine 15 MG Tablet PO (20:24)
[2018-09-22 21:06] LABS: Bedside Glucose 352 mg/dL (70-110)
[2018-09-23] MEDS: Febuxostat 40 MG TABLET 80 MG PO (04:59)
[2018-09-23] MEDS: Escitalopram Oxalate 10 MG Tablet PO (04:59)
[2018-09-23] MEDS: Ascorbic Acid 500 MG Tablet PO (04:59)
[2018-09-23] MEDS: Pantoprazole Sodium 40 MG Tablet PO (04:59)
[2018-09-23] MEDS: Polyethylene Glycol 3350 17 GM PACKET PO (04:59)
[2018-09-23] MEDS: Levothyroxine 88 MCG Tablet PO (04:59)
[2018-09-23] MEDS: FLUCONAZOLE 150 MG TABLET PO (04:59)
[2018-09-23] MEDS: Menthol/Lanolin/Calamine/Znox 113 GM Tube 1 APPLIC TOPICAL ×2 (04:59→20:23)
[2018-09-23] MEDS: Nystatin Powder 15gm Bottle 1 APPLIC TOPICAL ×2 (05:00→20:23)
[2018-09-23] MEDS: Glucerna Shake 120 ML LIQUID PO ×4 (05:01→20:22)
[2018-09-23 05:04] VITALS: PULSE 70
[2018-09-23] MEDS: Digoxin 125 MCG Tablet PO (05:04)
[2018-09-23 05:05] VITALS: BP 145/70; PULSE 70
[2018-09-23] MEDS: Metoprolol Tartrate 25 MG Tablet PO ×2 (05:05→17:00)
[2018-09-23 06:51] LABS: Bedside Glucose 95 mg/dL (70-110)
[2018-09-23] MEDS: Multivitamins,Ther W-Minerals Tablet 1 TABLET PO (08:06)
[2018-09-23] MEDS: APIXABAN 5 MG TABLET PO ×2 (08:06→16:59)
[2018-09-23 11:01] LABS: Bedside Glucose 206 mg/dL (70-110)
[2018-09-23 16:00] VITALS: BP 134/64; PULSE 75; RESP 18; TEMP 36.7; O2SAT 96
[2018-09-23 17:00] VITALS: BP 134/64; PULSE 75
[2018-09-23 17:26] LABS: Bedside Glucose 146 mg/dL (70-110)
[2018-09-23] MEDS: Mirtazapine 15 MG Tablet PO (20:22)
[2018-09-23] MEDS: LINAGLIPTIN 5 MG TABLET PO (20:22)
[2018-09-23] MEDS: MELATONIN 3 MG TABLET 6 MG PO (20:22)
[2018-09-23 21:41] LABS: Bedside Glucose 266 mg/dL (70-110)
[2018-09-24 04:38] VITALS: BP 137/74; PULSE 68
[2018-09-24] MEDS: Febuxostat 40 MG TABLET 80 MG PO (04:38)
[2018-09-24] MEDS: Metoprolol Tartrate 25 MG Tablet PO ×2 (04:38→17:59)
[2018-09-24] MEDS: Digoxin 125 MCG Tablet PO (04:38)
[2018-09-24] MEDS: Levothyroxine 88 MCG Tablet PO (04:38)
[2018-09-24] MEDS: Nystatin Powder 15gm Bottle 1 APPLIC TOPICAL ×2 (04:39→20:48)
[2018-09-24] MEDS: Ascorbic Acid 500 MG Tablet PO (04:39)
[2018-09-24] MEDS: Polyethylene Glycol 3350 17 GM PACKET PO (04:39)
[2018-09-24] MEDS: Glucerna Shake 120 ML LIQUID PO ×4 (04:39→20:47)
[2018-09-24] MEDS: Escitalopram Oxalate 10 MG Tablet PO (04:39)
[2018-09-24] MEDS: Menthol/Lanolin/Calamine/Znox 113 GM Tube 1 APPLIC TOPICAL ×2 (04:39→20:48)
[2018-09-24] MEDS: FLUCONAZOLE 150 MG TABLET PO (04:39)
[2018-09-24] MEDS: Pantoprazole Sodium 40 MG Tablet PO (04:39)
[2018-09-24 07:36] LABS: Bedside Glucose 139 mg/dL (70-110)
[2018-09-24] MEDS: Multivitamins,Ther W-Minerals Tablet 1 TABLET PO (08:22)
[2018-09-24] MEDS: APIXABAN 5 MG TABLET PO ×2 (08:22→17:59)
[2018-09-24 11:35] LABS: Bedside Glucose 130 mg/dL (70-110)
--- NOTE | 2018-09-24 13:56 | CASEMGMT ---
Insurance: Clinical update faxed to [facility] on 09/23/18. Next update due 09/30/18. auth # [id number]
--- NOTE | 2018-09-24 13:56 | NURSING ---
[facility] in to talk with pt and family, they say they will make a decision in the next couple of days/ week. also, Dr. Samayoa will review her chart to determine appropriateness of hospice vs palliative
[2018-09-24 15:55] VITALS: BP 150/73; PULSE 73; RESP 21; TEMP 36.8; O2SAT 92
[2018-09-24 17:15] LABS: Bedside Glucose 171 mg/dL (70-110)
[2018-09-24 17:59] VITALS: BP 150/73; PULSE 73
[2018-09-24] MEDS: MELATONIN 3 MG TABLET 6 MG PO (20:48)
[2018-09-24] MEDS: Mirtazapine 15 MG Tablet PO (20:50)
[2018-09-24] MEDS: LINAGLIPTIN 5 MG TABLET PO (20:50)
[2018-09-24 21:35] LABS: Bedside Glucose 326 mg/dL (70-110)
[2018-09-25] MEDS: Polyethylene Glycol 3350 17 GM PACKET PO (04:31)
[2018-09-25] MEDS: Glucerna Shake 120 ML LIQUID PO ×4 (04:31→20:49)
[2018-09-25] MEDS: Nystatin Powder 15gm Bottle 1 APPLIC TOPICAL ×2 (04:33→20:50)
[2018-09-25] MEDS: Menthol/Lanolin/Calamine/Znox 113 GM Tube 1 APPLIC TOPICAL ×2 (04:35→20:50)
[2018-09-25 04:36] VITALS: BP 127/62; PULSE 69
[2018-09-25] MEDS: Levothyroxine 88 MCG Tablet PO (04:36)
[2018-09-25] MEDS: Escitalopram Oxalate 10 MG Tablet PO (04:36)
[2018-09-25] MEDS: Ascorbic Acid 500 MG Tablet PO (04:36)
[2018-09-25] MEDS: Digoxin 125 MCG Tablet PO (04:36)
[2018-09-25] MEDS: Metoprolol Tartrate 25 MG Tablet PO ×2 (04:36→16:41)
[2018-09-25] MEDS: Febuxostat 40 MG TABLET 80 MG PO (04:36)
[2018-09-25] MEDS: Pantoprazole Sodium 40 MG Tablet PO (04:36)
[2018-09-25] MEDS: FLUCONAZOLE 150 MG TABLET PO (04:37)
[2018-09-25 06:30] LABS: Bedside Glucose 127 mg/dL (70-110)
[2018-09-25 07:22] LABS: Absolute Lymphocyte Count 1.38 X10^3/uL (0.83-4.51); Absolute Neutrophil Count 6.3 X10^3/uL (2.0-7.7); Basophil# 0.02 X10^3/uL; Basophil% 0.2 % (0-1); Eosinophil# 0.07 X10^3/uL; Eosinophils% 0.8 % (0-5); Hematocrit 44.2 % (37-47); Hemoglobin 14.5 g/dL (12.0-15.0); Lymphocyte # 1.38 X10^3/ul (4.0); Lymphocyte % 15.7 % (19-41); Mean Corp Hgb Conc 32.8 g/dL (32-36); Mean Corpuscular Hgb 28.7 pg (27.0-32.0); Mean Corpuscular Volume 87.4 fL (81-99); Mean Platelet Vol. 10.7 fl (6.2-12.0); Monocyte# 0.96 X10^3/uL; Monocyte% 10.9 % (0-10); NRBC Flagged by Analyzer 0 % (0-5); Neutrophil % 71.5 % (47-70); Platelet Count 189 K/mm3 (150-450); RBC Distribution Width CV 14.6 % (11.6-14.6); RBC Distribution Width SD 46.6 fl (35.1-43.9); Red Blood Count 5.06 M/mm3 (4.2-5.4); White Blood Count 8.8 K/mm3 (4.4-11.0)
[2018-09-25 07:52] LABS: Anion Gap 7 (5-15); BUN 55 mg/dL (7-18); BUN/Creat Ratio 85.5 RATIO (10-20); Calcium,Total 9.5 mg/dL (8.5-10.1); Chloride 109 mmol/L (98-107); Creatinine, Serum 0.64 mg/dL (0.55-1.02); EST Glomerular Filtration Rate 94 mL/min (>60); Est Glom Filt Rate - Afr Amer 113 mL/min (>60); Glucose 116 mg/dL (74-106); Potassium 4.5 mmol/L (3.5-5.1); Sodium Level 143 mmol/L (136-145)
[2018-09-25] MEDS: APIXABAN 5 MG TABLET PO ×2 (08:09→16:41)
[2018-09-25] MEDS: Multivitamins,Ther W-Minerals Tablet 1 TABLET PO (08:09)
[2018-09-25 11:40] LABS: Bedside Glucose 168 mg/dL (70-110)
[2018-09-25 14:17] VITALS: BP 129/71; PULSE 82; RESP 18; TEMP 36.8; O2SAT 96
[2018-09-25 16:41] VITALS: PULSE 66
[2018-09-25 16:51] LABS: Bedside Glucose 219 mg/dL (70-110)
[2018-09-25] MEDS: Mirtazapine 15 MG Tablet PO (20:49)
[2018-09-25] MEDS: MELATONIN 3 MG TABLET 6 MG PO (20:49)
[2018-09-25] MEDS: LINAGLIPTIN 5 MG TABLET PO (20:49)
[2018-09-25 21:06] LABS: Bedside Glucose 269 mg/dL (70-110)
[2018-09-26] MEDS: Glucerna Shake 120 ML LIQUID PO ×4 (05:46→21:31)
[2018-09-26 05:47] VITALS: BP 149/88; PULSE 90
[2018-09-26] MEDS: Levothyroxine 88 MCG Tablet PO (05:47)
[2018-09-26] MEDS: Febuxostat 40 MG TABLET 80 MG PO (05:47)
[2018-09-26] MEDS: Escitalopram Oxalate 10 MG Tablet PO (05:47)
[2018-09-26] MEDS: Metoprolol Tartrate 25 MG Tablet PO ×2 (05:47→16:38)
[2018-09-26] MEDS: Digoxin 125 MCG Tablet PO (05:47)
[2018-09-26] MEDS: Ascorbic Acid 500 MG Tablet PO (05:47)
[2018-09-26] MEDS: Pantoprazole Sodium 40 MG Tablet PO (05:47)
[2018-09-26] MEDS: Menthol/Lanolin/Calamine/Znox 113 GM Tube 1 APPLIC TOPICAL ×2 (05:47→21:34)
[2018-09-26] MEDS: FLUCONAZOLE 150 MG TABLET PO (05:47)
[2018-09-26] MEDS: Nystatin Powder 15gm Bottle 1 APPLIC TOPICAL ×2 (05:48→21:35)
[2018-09-26 06:31] LABS: Bedside Glucose 236 mg/dL (70-110)
[2018-09-26] MEDS: APIXABAN 5 MG TABLET PO ×2 (08:25→16:39)
[2018-09-26] MEDS: Multivitamins,Ther W-Minerals Tablet 1 TABLET PO (08:25)
[2018-09-26 11:57] LABS: Bedside Glucose 302 mg/dL (70-110)
[2018-09-26 13:25] VITALS: BP 132/65; PULSE 79; RESP 16; TEMP 37.1; O2SAT 96
[2018-09-26 16:38] VITALS: PULSE 79
[2018-09-26 16:56] LABS: Bedside Glucose 231 mg/dL (70-110)
[2018-09-26 21:26] LABS: Bedside Glucose 359 mg/dL (70-110)
[2018-09-26] MEDS: LINAGLIPTIN 5 MG TABLET PO (21:35)
[2018-09-26] MEDS: MELATONIN 3 MG TABLET 6 MG PO (21:35)
[2018-09-26] MEDS: Mirtazapine 15 MG Tablet PO (21:35)
[2018-09-27 05:12] VITALS: BP 123/68; PULSE 63
[2018-09-27] MEDS: Metoprolol Tartrate 25 MG Tablet PO ×2 (05:12→16:35)
[2018-09-27] MEDS: Polyethylene Glycol 3350 17 GM PACKET PO (05:12)
[2018-09-27] MEDS: Febuxostat 40 MG TABLET 80 MG PO (05:12)
[2018-09-27 05:13] VITALS: PULSE 63
[2018-09-27] MEDS: FLUCONAZOLE 150 MG TABLET PO (05:13)
[2018-09-27] MEDS: Escitalopram Oxalate 10 MG Tablet PO (05:13)
[2018-09-27] MEDS: Ascorbic Acid 500 MG Tablet PO (05:13)
[2018-09-27] MEDS: Digoxin 125 MCG Tablet PO (05:13)
[2018-09-27] MEDS: Levothyroxine 88 MCG Tablet PO (05:13)
[2018-09-27] MEDS: Nystatin Powder 15gm Bottle 1 APPLIC TOPICAL ×2 (05:13→20:25)
[2018-09-27] MEDS: Pantoprazole Sodium 40 MG Tablet PO (05:13)
[2018-09-27] MEDS: Glucerna Shake 120 ML LIQUID PO ×4 (05:13→20:23)
[2018-09-27] MEDS: Menthol/Lanolin/Calamine/Znox 113 GM Tube 1 APPLIC TOPICAL ×2 (05:13→20:24)
[2018-09-27 06:26] LABS: Bedside Glucose 157 mg/dL (70-110)
[2018-09-27] MEDS: Multivitamins,Ther W-Minerals Tablet 1 TABLET PO (07:45)
[2018-09-27] MEDS: APIXABAN 5 MG TABLET PO ×2 (07:45→16:35)
[2018-09-27] MEDS: Insulin Lispro 100 UNIT/ML INSULN.PEN 10 UNIT SC (07:45)
[2018-09-27 10:56] LABS: Bedside Glucose 63 mg/dL (70-110)
--- NOTE | 2018-09-27 11:17 | NURSING ---
BLOOD SUGAR 63 BEFORE LUNCH. 4OZ OJ/PEANUT BUTTER CRACKERS PROVIDED. NOW 111. HELD LUNCH INSULIN. WILL UPDATE DR. HARGROVE. R' ASYMPTOMATIC.
[2018-09-27 11:20] LABS: Bedside Glucose 111 mg/dL (70-110)
[2018-09-27 15:39] VITALS: BP 130/64; PULSE 76; RESP 19; TEMP 36.4; O2SAT 93
[2018-09-27 16:35] VITALS: PULSE 76
[2018-09-27 17:05] LABS: Bedside Glucose 187 mg/dL (70-110)
[2018-09-27] MEDS: Insulin Lispro 100 UNIT/ML INSULN.PEN 7 UNIT SC (17:07)
[2018-09-27] MEDS: MELATONIN 3 MG TABLET 6 MG PO (20:23)
[2018-09-27] MEDS: Mirtazapine 15 MG Tablet PO (20:23)
[2018-09-27] MEDS: LINAGLIPTIN 5 MG TABLET PO (20:23)
[2018-09-27 21:41] LABS: Bedside Glucose 373 mg/dL (70-110)
[2018-09-28] MEDS: Glucerna Shake 120 ML LIQUID PO ×4 (05:04→20:44)
[2018-09-28 05:06] VITALS: BP 139/73; PULSE 69
[2018-09-28] MEDS: Metoprolol Tartrate 25 MG Tablet PO ×2 (05:06→17:00)
[2018-09-28] MEDS: Escitalopram Oxalate 10 MG Tablet PO (05:07)
[2018-09-28] MEDS: FLUCONAZOLE 150 MG TABLET PO (05:07)
[2018-09-28] MEDS: Levothyroxine 88 MCG Tablet PO (05:07)
[2018-09-28] MEDS: Febuxostat 40 MG TABLET 80 MG PO (05:07)
[2018-09-28 05:08] VITALS: BP 139/73; PULSE 69
[2018-09-28] MEDS: Digoxin 125 MCG Tablet PO (05:08)
[2018-09-28] MEDS: Pantoprazole Sodium 40 MG Tablet PO (05:08)
[2018-09-28] MEDS: Ascorbic Acid 500 MG Tablet PO (05:09)
[2018-09-28] MEDS: Menthol/Lanolin/Calamine/Znox 113 GM Tube 1 APPLIC TOPICAL ×2 (05:11→20:47)
[2018-09-28] MEDS: Nystatin Powder 15gm Bottle 1 APPLIC TOPICAL ×2 (05:11→20:47)
[2018-09-28 05:16] LABS: Bedside Glucose 104 mg/dL (70-110)
[2018-09-28 06:31] LABS: Bedside Glucose 107 mg/dL (70-110)
[2018-09-28] MEDS: Multivitamins,Ther W-Minerals Tablet 1 TABLET PO (07:59)
[2018-09-28] MEDS: APIXABAN 5 MG TABLET PO ×2 (07:59→16:59)
[2018-09-28] MEDS: Insulin Lispro 100 UNIT/ML INSULN.PEN 7 UNIT SC ×2 (08:01→16:59)
[2018-09-28 10:00] VITALS: RESP 16
[2018-09-28 11:26] LABS: Bedside Glucose 85 mg/dL (70-110)
[2018-09-28 15:03] VITALS: BP 131/75; PULSE 72; RESP 18; TEMP 36.8; O2SAT 96
[2018-09-28 16:50] LABS: Bedside Glucose 179 mg/dL (70-110)
[2018-09-28 17:00] VITALS: PULSE 74
[2018-09-28] MEDS: LINAGLIPTIN 5 MG TABLET PO (20:45)
[2018-09-28] MEDS: Mirtazapine 15 MG Tablet PO (20:45)
[2018-09-28] MEDS: MELATONIN 3 MG TABLET 6 MG PO (20:45)
[2018-09-28 21:06] LABS: Bedside Glucose 246 mg/dL (70-110)
[2018-09-29] MEDS: Glucerna Shake 120 ML LIQUID PO ×4 (05:38→21:00)
[2018-09-29 05:39] VITALS: BP 131/72; PULSE 64
[2018-09-29] MEDS: Ascorbic Acid 500 MG Tablet PO (05:39)
[2018-09-29] MEDS: Levothyroxine 88 MCG Tablet PO (05:39)
[2018-09-29] MEDS: Metoprolol Tartrate 25 MG Tablet PO ×2 (05:39→17:31)
[2018-09-29] MEDS: Febuxostat 40 MG TABLET 80 MG PO (05:39)
[2018-09-29 05:40] VITALS: BP 131/72; PULSE 64
[2018-09-29] MEDS: Escitalopram Oxalate 10 MG Tablet PO (05:40)
[2018-09-29] MEDS: Pantoprazole Sodium 40 MG Tablet PO (05:40)
[2018-09-29] MEDS: Digoxin 125 MCG Tablet PO (05:40)
[2018-09-29] MEDS: Nystatin Powder 15gm Bottle 1 APPLIC TOPICAL ×2 (05:42→21:03)
[2018-09-29] MEDS: Menthol/Lanolin/Calamine/Znox 113 GM Tube 1 APPLIC TOPICAL ×2 (05:42→21:00)
[2018-09-29 06:25] LABS: Bedside Glucose 123 mg/dL (70-110)
[2018-09-29] MEDS: APIXABAN 5 MG TABLET PO ×2 (08:26→17:31)
[2018-09-29] MEDS: Multivitamins,Ther W-Minerals Tablet 1 TABLET PO (08:26)
[2018-09-29] MEDS: Insulin Lispro 100 UNIT/ML INSULN.PEN 7 UNIT SC ×3 (08:26→17:31)
[2018-09-29 11:15] LABS: Bedside Glucose 100 mg/dL (70-110)
[2018-09-29 15:08] VITALS: BP 135/57; PULSE 82; RESP 18; TEMP 37.2; O2SAT 92
[2018-09-29 17:26] LABS: Bedside Glucose 144 mg/dL (70-110)
[2018-09-29 17:31] VITALS: BP 135/57; PULSE 82
[2018-09-29] MEDS: MELATONIN 3 MG TABLET 6 MG PO (21:01)
[2018-09-29] MEDS: Mirtazapine 15 MG Tablet PO (21:02)
[2018-09-29] MEDS: LINAGLIPTIN 5 MG TABLET PO (21:03)
[2018-09-29 21:30] LABS: Bedside Glucose 132 mg/dL (70-110)
[2018-09-30 02:36] LABS: Bedside Glucose 152 mg/dL (70-110)
[2018-09-30] MEDS: Menthol/Lanolin/Calamine/Znox 113 GM Tube 1 APPLIC TOPICAL ×2 (05:27→20:31)
[2018-09-30] MEDS: Nystatin Powder 15gm Bottle 1 APPLIC TOPICAL ×2 (05:27→20:31)
[2018-09-30 05:29] VITALS: BP 140/66; PULSE 66
[2018-09-30] MEDS: Pantoprazole Sodium 40 MG Tablet PO (05:29)
[2018-09-30] MEDS: Escitalopram Oxalate 10 MG Tablet PO (05:29)
[2018-09-30] MEDS: Febuxostat 40 MG TABLET 80 MG PO (05:29)
[2018-09-30] MEDS: Levothyroxine 88 MCG Tablet PO (05:29)
[2018-09-30] MEDS: Glucerna Shake 120 ML LIQUID PO ×4 (05:29→20:29)
[2018-09-30] MEDS: Ascorbic Acid 500 MG Tablet PO (05:29)
[2018-09-30] MEDS: Digoxin 125 MCG Tablet PO (05:29)
[2018-09-30 05:30] VITALS: PULSE 66
[2018-09-30] MEDS: Metoprolol Tartrate 25 MG Tablet PO ×2 (05:30→16:59)
[2018-09-30 07:01] LABS: Bedside Glucose 127 mg/dL (70-110)
[2018-09-30] MEDS: APIXABAN 5 MG TABLET PO ×2 (08:33→16:59)
[2018-09-30] MEDS: Multivitamins,Ther W-Minerals Tablet 1 TABLET PO (08:33)
[2018-09-30] MEDS: Insulin Lispro 100 UNIT/ML INSULN.PEN 7 UNIT SC ×3 (08:33→17:00)
--- NOTE | 2018-09-30 09:17 | CASEMGMT ---
Insurance: [facility] Auth # [id number]
[2018-09-30 10:46] LABS: Bedside Glucose 110 mg/dL (70-110)
[2018-09-30 16:00] VITALS: BP 129/68; PULSE 72; RESP 18; TEMP 36.6; O2SAT 98
[2018-09-30 16:46] LABS: Bedside Glucose 119 mg/dL (70-110)
[2018-09-30 16:59] VITALS: PULSE 72
--- NOTE | 2018-09-30 19:30 | DCINST_ITS ---
- Discharge Diagnoses Current Active Problems: Current Active and Chronic Problems (Last Updated 09/07/18 @ 19:31 by Saroj Pena DO) Debility (Acute) Diarrhea (Acute) Viral gastroenteritis (Acute) Dehydration (Acute) Acute kidney injury (Acute) Atrophic vaginitis (Chronic) You will use the following diet at home:: No restrictions, Regular Your food should be the consistency of: Regular Your liquids should be the consistency of: Regular/Thin Discharge Activity: Return to Normal Activity, May Shower, Use Walker Weight Bearing Status: Toe touch weight bearing - Right lower extremity. Call your doctor if you observe: Fever of 101 or Higher, Inability to urinate, Inability to have a bowel movement, Shortness of breath, Chest pain, Uncontrolled pain Allergies/Adverse Reactions: Allergies exenatide [From Byetta] Allergy (Verified 09/06/18 17:30) Unknown metformin Allergy (Verified 09/06/18 17:30) Rash Penicillins [PCN] Allergy (Verified 09/06/18 17:30) Unknown simvastatin [From Zocor] Adverse Reaction (Severe, Verified 08/18/18 17:17) Myalgias prednisone Adverse Reaction (Unknown, Verified 09/06/18 17:30) effects blood sugar amoxicillin [From Augmentin] Adverse Reaction (Verified 09/06/18 17:30) Diarrhea clavulanic acid [From Augmentin] Adverse Reaction (Verified 09/06/18 17:30) Diarrhea crestor Adverse Reaction (Intermediate, Uncoded 08/18/18 17:17) myalgia Medications to take at Discharge Linagliptin [Tradjenta] 5 mg PO QHS 04/28/18 Apixaban [Eliquis] 5 mg PO BID 04/30/18 Ascorbic Acid [Vitamin C] 500 mg PO DAILY 08/18/18 Febuxostat [Uloric] 80 mg PO DAILY 08/18/18 L.acidoph,Paracasei, B.lactis [Probiotic] 1 ea PO DAILY 08/18/18 Melatonin 6 mg PO QHS 08/18/18 Pantoprazole Sodium [Protonix] 40 mg PO DAILY 08/18/18 Digoxin 125 mcg PO DAILY 09/06/18 Levothyroxine [Synthroid] 88 mcg PO DAILY@0700 09/06/18 Metoprolol Tartrate [Lopressor (beta chanel)] 25 mg PO BID 09/06/18 Mirtazapine 15 mg PO QHS 09/06/18 Multivitamin with Minerals [Multiple Vitamin] 1 tab PO DAILY 09/06/18 Escitalopram Oxalate [Lexapro] 10 mg PO DAILY 09/10/18 Menthol/Lanolin/Calamine/Znox [Calmoseptine Ointment] 1 applic TOPICAL BID 09/10/18 Nystatin Powder [Mycostatin Powder] 1 applic TOPICAL BID 09/10/18 Acetaminophen [Tylenol] 1,000 mg PO Q6H PRN PRN tablet 09/30/18 Insulin Glargine [Lantus SoloStar Pen] 20 units SUBCUT QHS #1 pen 09/30/18 Insulin Lispro [Humalog KwikPen] 7 unit SUBCUT TIDAC #1 insuln.pen 09/30/18 Nutritional Supplement [Jj - ORANGE FLAVOR] 1 packet PO BIDCM #60 packet 09/30/18 The following prescriptions were given: Insulin Lispro [Humalog KwikPen] 7 unit SUBCUT TIDAC #1 insuln.pen Transmission Status: Pending to [facility]/pharmacy #[id number] Nutritional Supplement [Jj - ORANGE FLAVOR] 1 packet PO BIDCM #60 packet Transmission Status: Pending to [facility]/pharmacy #[id number] Insulin Glargine [Lantus SoloStar Pen] 20 units SUBCUT QHS #1 pen Transmission Status: Pending to [facility]/pharmacy #[id number] Primary Care Physician: Saroj Fajardo DO [Primary Care Provider] - Please follow up with your Primary Care Physician in: 1 week. Test Results: Test results from this visit will be discussed in further detail at your follow- up appointment, if applicable. Please Follow Up With: Dr. Fajardo When: 1 week after discharge Proposed Discharge Date: 10/03/18
--- NOTE | 2018-09-30 19:32 | PCM.DC.SUM ---
Discharge Date and Diagnosis - Problem List Patient Problems: Active and Suspected Problems (Last Updated 09/07/18 @ 19:31 by Saroj Pena DO) Debility (Acute) Diarrhea (Acute) Viral gastroenteritis (Acute) Dehydration (Acute) Acute kidney injury (Acute) Date of Admission: 09/10/18 Date of Discharge: 10/03/18 - Primary Discharge Diagnosis Active and Suspected Problems (Last Updated 09/07/18 @ 19:31 by Saroj Pena DO) Debility (Acute) Diarrhea (Acute) Viral gastroenteritis (Acute) Dehydration (Acute) Acute kidney injury (Acute) - Secondary Discharge Diagnosis Chronic Problems (Last Updated 09/07/18 @ 19:31 by Saroj Pena DO) Depression (Chronic) Atrophic vaginitis (Chronic) CKD (chronic kidney disease) stage 3, GFR 30-59 ml/min (Chronic) Chronic kidney disease (Chronic) Chronic diastolic heart failure (Chronic) Diabetes mellitus (Chronic) Gout (Chronic) Recurrent UTI (Chronic) Sick sinus syndrome (Chronic) Atrial fibrillation (Chronic) Cardiomyopathy, nonischemic (Chronic) HLD (hyperlipidemia) (Chronic) HTN (hypertension) (Chronic) Hypothyroidism (Chronic) Hypokalemia (Chronic) Chronic diastolic (congestive) heart failure (Chronic) Iron deficiency anemia (Chronic) GERD (gastroesophageal reflux disease) (Chronic) Cardiac pacemaker in situ (Chronic) DM2 (diabetes mellitus, type 2) (Chronic) CHF (congestive heart failure) (Chronic) Pulmonary hypertension (Chronic) Hospital Course and Treatment Imaging Results: 09/13/18 10:22 Diet: Regular Diet Food consistency:: Mechanical Soft/Ground Liquid Consistency:: Regular/Thin Type of Dietary Supplement:: Glucerna Shake Is pt able to select menu?: Yes Labs (Last 48 Hours) 09/28/18 09/29/18 09/29/18 20:50 06:20 11:02 POC Glucose 246 H 123 H 100 09/29/18 09/29/18 09/30/18 17:09 21:19 02:30 POC Glucose 144 H 132 H 152 H 09/30/18 09/30/18 09/30/18 06:14 10:38 16:38 POC Glucose 127 H 110 119 H Operations: None, - Procedures: None Summary of Care Provided: The patient is a 83 year old Female with below past medical history hospitalized for diarrhea secondary to acute gastroenteritis, admitted to TCU with debility, here for rehabilitation, strengthening, prior to discharge home alone. 09/14/2018 Right subacromial bursa injected with steroid/1% Lidocaine. Insulin added to control hyperglycemia from steroid injection, can most likely stop insulin in near future. Discharge home alone, [facility] for PT/OT/SN, private duty aides. Patient Problems: Active and Suspected Problems (Last Updated 09/07/18 @ 19:31 by Saroj Pena DO) Debility (Acute) Diarrhea (Acute) Viral gastroenteritis (Acute) Dehydration (Acute) Acute kidney injury (Acute) - Physical Exam Vital Signs Temp Pulse Resp BP Pulse Ox 98 F 72 18 129/68 H 98 09/30/18 16:00 09/30/18 16:59 09/30/18 16:00 09/30/18 16:00 09/30/18 16:00 Oxygen Flow Rate (L/min) 92 Oxygen Delivery Method Room Air Weight: 71.016 kg Body Mass Index (BMI) 24.3 Finger Stick Blood Glucose 276 Intake and Output for Last 24 Hours 09/28/18 09/29/18 09/30/18 23:59 23:59 23:59 Intake Total 720 / 720 840 / 840 280 / 280 Balance 720 / 720 840 / 840 280 / 280 POC Glucose 09/30/18 09/30/18 09/30/18 16:38 10:38 06:14 POC Glucose 119 H 110 127 H 09/30/18 09/29/18 02:30 21:19 POC Glucose 152 H 132 H Discharge Diet: - - Mechanical soft/Ground Discharge Activity: Return to Normal Activity, May Shower, Use Walker Weight Bearing Status: Toe touch weight bearing - Right lower extremity. Call your doctor if you observe: Fever of 101 or Higher, Inability to urinate, Inability to have a bowel movement, Shortness of breath, Chest pain, Uncontrolled pain Home Medications: Medications to take at Discharge Linagliptin [Tradjenta] 5 mg PO QHS 04/28/18 Apixaban [Eliquis] 5 mg PO BID 04/30/18 Ascorbic Acid [Vitamin C] 500 mg PO DAILY 08/18/18 Febuxostat [Uloric] 80 mg PO DAILY 08/18/18 L.acidoph,Paracasei, B.lactis [Probiotic] 1 ea PO DAILY 08/18/18 Melatonin 6 mg PO QHS 08/18/18 Pantoprazole Sodium [Protonix] 40 mg PO DAILY 08/18/18 Digoxin 125 mcg PO DAILY 09/06/18 Levothyroxine [Synthroid] 88 mcg PO DAILY@0700 09/06/18 Metoprolol Tartrate [Lopressor (beta chanel)] 25 mg PO BID 09/06/18 Mirtazapine 15 mg PO QHS 09/06/18 Multivitamin with Minerals [Multiple Vitamin] 1 tab PO DAILY 09/06/18 Escitalopram Oxalate [Lexapro] 10 mg PO DAILY 09/10/18 Menthol/Lanolin/Calamine/Znox [Calmoseptine Ointment] 1 applic TOPICAL BID 09/10/18 Nystatin Powder [Mycostatin Powder] 1 applic TOPICAL BID 09/10/18 Acetaminophen [Tylenol] 1,000 mg PO Q6H PRN PRN tablet 09/30/18 Insulin Glargine [Lantus SoloStar Pen] 20 units SUBCUT QHS #1 pen 09/30/18 Insulin Lispro [Humalog KwikPen] 7 unit SUBCUT TIDAC #1 insuln.pen 09/30/18 Nutritional Supplement [Jj - ORANGE FLAVOR] 1 packet PO BIDCM #60 packet 09/30/18 Following Prescrptions Were Given to Patient: Insulin Lispro [Humalog KwikPen] 7 unit SUBCUT TIDAC #1 insuln.pen Transmission Status: Pending to [facility]/pharmacy #[id number] Nutritional Supplement [Jj - ORANGE FLAVOR] 1 packet PO BIDCM #60 packet Transmission Status: [id number] Insulin Glargine [Lantus SoloStar Pen] 20 units SUBCUT QHS #1 pen Transmission Status: [id number] Primary Care Physician: Saorj Fajardo DO [Primary Care Provider] - Please follow up with your Primary Care Physician in: 1 week. Please Follow Up With: Dr. Fajardo When: 1 week after discharge Disposition: Home with Home Health Minutes spent on discharge:: 35 Patient Condition:: Stable Medical Necessity - Tobacco Use Smoking Status: Never smoker Tobacco Use: Non-smoker Meaningful Use Info Meaningful Use Diagnoses (Choose all that apply): None applicable
--- NOTE | 2018-09-30 19:35 | PCM.PN.HH ---
Home Health Note - Plan Overview of reason of hospitalization: The patient is a 83 year old Female with below past medical history hospitalized for diarrhea secondary to acute gastroenteritis, admitted to TCU with debility, here for rehabilitation, strengthening, prior to discharge home alone. 09/14/2018 Right subacromial bursa injected with steroid/1% Lidocaine. Insulin added to control hyperglycemia from steroid injection, can most likely stop insulin in near future. Discharge home alone, [facility] for PT/OT/SN, private duty aides. Problems: Patient was seen for (Last Updated 09/07/18 @ 19:31 by Saroj Pena DO) Debility (Acute) Diarrhea (Acute) Viral gastroenteritis (Acute) Dehydration (Acute) Acute kidney injury (Acute) Atrophic vaginitis (Chronic) Complete List of Medical Problems (Last Updated 09/07/18 @ 19:31 by Saroj Pena DO) Depression (Chronic) Debility (Acute) Diarrhea (Acute) Viral gastroenteritis (Acute) Dehydration (Acute) Acute kidney injury (Acute) Atrophic vaginitis (Chronic) CKD (chronic kidney disease) stage 3, GFR 30-59 ml/min (Chronic) Chronic kidney disease (Chronic) Chronic diastolic heart failure (Chronic) Diabetes mellitus (Chronic) Gout (Chronic) Recurrent UTI (Chronic) Acute gastroenteritis (Acute) Blister of right heel (Acute) Sick sinus syndrome (Chronic) Atrial fibrillation (Chronic) Cardiomyopathy, nonischemic (Chronic) HLD (hyperlipidemia) (Chronic) HTN (hypertension) (Chronic) Hypothyroidism (Chronic) Hypokalemia (Chronic) Chronic diastolic (congestive) heart failure (Chronic) Iron deficiency anemia (Chronic) GERD (gastroesophageal reflux disease) (Chronic) Cardiac pacemaker in situ (Chronic) DM2 (diabetes mellitus, type 2) (Chronic) CHF (congestive heart failure) (Chronic) Pulmonary hypertension (Chronic) - Requirements and Reasons Disciplines Needed/Ordered: [facility], Physical Therapy Reason for Disciplines: Disease Specific Monitoring/education, Medication Management/Knowledge Deficit, Wound Care, Teaching of Injections, Gait Training, Stair Training, Fall Prevention, Home Safety/Equipment Instruction, Balance and/or Posture Training, Transfer Training Related To: Change in Medical Treatment Plan, Limited/Poor Endurance, Shortness of Breath with Activity, Physical Impairments, Unsteady Gait/Balance, Fall Risk Patient is unable to leave the home: Without Aid of Supportive Devices (crutches, cane, wheelchair, walker), Without the assistance of another person, Because it is medically contraindicated Medically Contraindicated related to: Weight Bearing Status - Additional Disciplines Additional Disciplines Needed/Ordered: Occupational Therapy
[2018-09-30] MEDS: MELATONIN 3 MG TABLET 6 MG PO (20:30)
[2018-09-30] MEDS: LINAGLIPTIN 5 MG TABLET PO (20:30)
[2018-09-30] MEDS: Mirtazapine 15 MG Tablet PO (20:30)
[2018-09-30 21:26] LABS: Bedside Glucose 161 mg/dL (70-110)
[2018-10-01] MEDS: Glucerna Shake 120 ML LIQUID PO ×3 (06:06→20:14)
[2018-10-01] MEDS: Ascorbic Acid 500 MG Tablet PO (06:06)
[2018-10-01] MEDS: Levothyroxine 88 MCG Tablet PO (06:06)
[2018-10-01 06:07] VITALS: BP 117/60; PULSE 67
[2018-10-01] MEDS: Pantoprazole Sodium 40 MG Tablet PO (06:07)
[2018-10-01] MEDS: Digoxin 125 MCG Tablet PO (06:07)
[2018-10-01] MEDS: Metoprolol Tartrate 25 MG Tablet PO ×2 (06:07→16:54)
[2018-10-01] MEDS: Escitalopram Oxalate 10 MG Tablet PO (06:07)
[2018-10-01] MEDS: Febuxostat 40 MG TABLET 80 MG PO (06:07)
[2018-10-01] MEDS: Nystatin Powder 15gm Bottle 1 APPLIC TOPICAL ×2 (06:09→20:15)
[2018-10-01] MEDS: Menthol/Lanolin/Calamine/Znox 113 GM Tube 1 APPLIC TOPICAL ×2 (06:09→20:14)
[2018-10-01 06:31] LABS: Bedside Glucose 75 mg/dL (70-110)
[2018-10-01] MEDS: Multivitamins,Ther W-Minerals Tablet 1 TABLET PO (07:44)
[2018-10-01] MEDS: APIXABAN 5 MG TABLET PO ×2 (07:45→16:53)
[2018-10-01 10:51] LABS: Bedside Glucose 187 mg/dL (70-110)
[2018-10-01 14:16] VITALS: BP 140/74; PULSE 79; RESP 16; TEMP 36.6; O2SAT 94
[2018-10-01 16:54] VITALS: PULSE 68
[2018-10-01 16:55] LABS: Bedside Glucose 139 mg/dL (70-110)
[2018-10-01] MEDS: Mirtazapine 15 MG Tablet PO (20:14)
[2018-10-01] MEDS: MELATONIN 3 MG TABLET 6 MG PO (20:14)
[2018-10-01] MEDS: LINAGLIPTIN 5 MG TABLET PO (20:21)
[2018-10-01 21:05] LABS: Bedside Glucose 230 mg/dL (70-110)
[2018-10-02] MEDS: Polyethylene Glycol 3350 17 GM PACKET PO (04:44)
[2018-10-02] MEDS: Febuxostat 40 MG TABLET 80 MG PO (04:48)
[2018-10-02] MEDS: Levothyroxine 88 MCG Tablet PO (04:48)
[2018-10-02] MEDS: Glucerna Shake 120 ML LIQUID PO ×4 (04:48→22:25)
[2018-10-02] MEDS: Pantoprazole Sodium 40 MG Tablet PO (04:48)
[2018-10-02] MEDS: Ascorbic Acid 500 MG Tablet PO (04:48)
[2018-10-02 04:49] VITALS: BP 126/64; PULSE 63
[2018-10-02] MEDS: Digoxin 125 MCG Tablet PO (04:49)
[2018-10-02] MEDS: Escitalopram Oxalate 10 MG Tablet PO (04:49)
[2018-10-02] MEDS: Nystatin Powder 15gm Bottle 1 APPLIC TOPICAL ×2 (04:49→22:10)
[2018-10-02] MEDS: Menthol/Lanolin/Calamine/Znox 113 GM Tube 1 APPLIC TOPICAL ×2 (04:49→22:13)
[2018-10-02] MEDS: Metoprolol Tartrate 25 MG Tablet PO ×2 (04:49→17:39)
[2018-10-02 06:31] LABS: Bedside Glucose 108 mg/dL (70-110)
[2018-10-02 07:09] LABS: Absolute Lymphocyte Count 1.21 X10^3/uL (0.83-4.51); Absolute Neutrophil Count 5.6 X10^3/uL (2.0-7.7); Basophil# 0.02 X10^3/uL; Basophil% 0.3 % (0-1); Eosinophil# 0.13 X10^3/uL; Eosinophils% 1.7 % (0-5); Hematocrit 40.5 % (37-47); Hemoglobin 13.4 g/dL (12.0-15.0); Lymphocyte # 1.21 X10^3/ul (4.0); Lymphocyte % 15.7 % (19-41); Mean Corp Hgb Conc 33.1 g/dL (32-36); Mean Corpuscular Hgb 29.2 pg (27.0-32.0); Mean Corpuscular Volume 88.2 fL (81-99); Mean Platelet Vol. 10.8 fl (6.2-12.0); Monocyte# 0.76 X10^3/uL; Monocyte% 9.8 % (0-10); NRBC Flagged by Analyzer 0 % (0-5); Neutrophil # 5.56 X10^3/uL (2.7-7.7); Neutrophil % 71.9 % (47-70); Platelet Count 134 K/mm3 (150-450); RBC Distribution Width CV 14.4 % (11.6-14.6); RBC Distribution Width SD 46.2 fl (35.1-43.9); Red Blood Count 4.59 M/mm3 (4.2-5.4); White Blood Count 7.7 K/mm3 (4.4-11.0)
--- NOTE | 2018-10-02 07:14 | NURSING ---
Pt with fine crackles noted to bases. Pt with moist productive cough. Pt had sputum in tissues, noted to be yellowish brown. Will update Dr Jaffe.
[2018-10-02 07:20] LABS: Anion Gap 5 (5-15); BUN 45 mg/dL (7-18); BUN/Creat Ratio 75.8 RATIO (10-20); Chloride 108 mmol/L (98-107); Creatinine, Serum 0.59 mg/dL (0.55-1.02); EST Glomerular Filtration Rate 103 mL/min (>60); Est Glom Filt Rate - Afr Amer 124 mL/min (>60); Glucose 99 mg/dL (74-106); Potassium 4.1 mmol/L (3.5-5.1); Sodium Level 141 mmol/L (136-145)
[2018-10-02] MEDS: APIXABAN 5 MG TABLET PO ×2 (08:03→17:39)
[2018-10-02] MEDS: Multivitamins,Ther W-Minerals Tablet 1 TABLET PO (08:03)
[2018-10-02 10:41] LABS: Bedside Glucose 168 mg/dL (70-110)
[2018-10-02 15:15] VITALS: BP 141/75; PULSE 75; RESP 20; TEMP 37.2; O2SAT 93
--- NOTE | 2018-10-02 15:30 | RAD_ITS ---
STUDY: X-RAY CHEST REASON FOR EXAM: Female, 83 years old. Cough. TECHNIQUE: Single AP portable view of the chest. COMPARISON: 08/18/2018. FINDINGS: The lungs are clear and expanded. There is no demonstrated pleural abnormality. There is mild cardiac enlargement. Pacemaker is seen with leads terminating in the right atrium and right ventricle. Normal mediastinum and becky. Normal visualized pulmonary arteries. Normal visualized aortic arch and descending thoracic aorta. Normal visualized thoracic spine. Normal visualized ribs, clavicles, and shoulders. There is no demonstrated abnormality of the visualized soft tissue structures of the upper abdomen. RAD/Chest 1 View IMPRESSION: No definite acute chest disease. Electronically Signed: Lambert Dsouza MD at 16:27 EDT , Service support ,
[2018-10-02 17:11] LABS: Bedside Glucose 191 mg/dL (70-110)
[2018-10-02 17:39] VITALS: PULSE 78
[2018-10-02 21:36] LABS: Bedside Glucose 229 mg/dL (70-110)
[2018-10-02] MEDS: LINAGLIPTIN 5 MG TABLET PO (22:09)
[2018-10-02] MEDS: MELATONIN 3 MG TABLET 6 MG PO (22:09)
[2018-10-02] MEDS: Mirtazapine 15 MG Tablet PO (22:24)
[2018-10-03] MEDS: Febuxostat 40 MG TABLET 80 MG PO (06:28)
[2018-10-03] MEDS: Ascorbic Acid 500 MG Tablet PO (06:28)
[2018-10-03] MEDS: Levothyroxine 88 MCG Tablet PO (06:28)
[2018-10-03] MEDS: Escitalopram Oxalate 10 MG Tablet PO (06:29)
[2018-10-03] MEDS: Pantoprazole Sodium 40 MG Tablet PO (06:29)
[2018-10-03] MEDS: Menthol/Lanolin/Calamine/Znox 113 GM Tube 1 APPLIC TOPICAL (06:29)
[2018-10-03 06:30] LABS: Bedside Glucose 129 mg/dL (70-110)
[2018-10-03 06:31] VITALS: BP 125/61; PULSE 65
[2018-10-03] MEDS: Digoxin 125 MCG Tablet PO (06:31)
[2018-10-03 06:33] VITALS: BP 125/61; PULSE 65
[2018-10-03] MEDS: Metoprolol Tartrate 25 MG Tablet PO (06:33)
[2018-10-03] MEDS: Polyethylene Glycol 3350 17 GM PACKET PO (06:35)
[2018-10-03] MEDS: Nystatin Powder 15gm Bottle 1 APPLIC TOPICAL (06:36)
[2018-10-03] MEDS: Glucerna Shake 120 ML LIQUID PO ×2 (06:37→12:03)
[2018-10-03] MEDS: APIXABAN 5 MG TABLET PO (08:00)
[2018-10-03] MEDS: Multivitamins,Ther W-Minerals Tablet 1 TABLET PO (08:00)
[2018-10-03 09:31] VITALS: RESP 18
[2018-10-03 09:57] VITALS: BP 140/73; PULSE 70; RESP 18; TEMP 36.3; O2SAT 95
[2018-10-03 11:11] LABS: Bedside Glucose 221 mg/dL (70-110)
[2018-10-03 13:07] VITALS: BP 140/73; PULSE 70; RESP 18; TEMP 36.3; O2SAT 95
== END 2018-10-03 13:10 | disposition home health service (06) | DRG 948 ==
PROVIDERS: Admitting Provider Family Medicine Geriatric Medicine; Family Provider Family Medicine; PCP Family Medicine; Visit Provider Family Medicine Geriatric Medicine
DX: R53.81 Other malaise (principal); I13.0 Hypertensive heart and chronic kidney disease with heart failure and stage 1 through stage 4 chronic kidney disease, or unspecified chronic kidney disease; I50.32 Chronic diastolic (congestive) heart failure; L97.419 Non-pressure chronic ulcer of right heel and midfoot with unspecified severity; E03.9 Hypothyroidism, unspecified; K21.9 Gastro-esophageal reflux disease without esophagitis; B35.4 Tinea corporis; E11.22 Type 2 diabetes mellitus with diabetic chronic kidney disease; I48.2 Chronic atrial fibrillation; F32.9 Major depressive disorder, single episode, unspecified; N18.3 Chronic kidney disease, stage 3 (moderate); E11.621 Type 2 diabetes mellitus with foot ulcer; E78.5 Hyperlipidemia, unspecified; M1A.9XX0 Chronic gout, unspecified, without tophus (tophi); I27.20 Pulmonary hypertension, unspecified; Z95.0 Presence of cardiac pacemaker; Z86.718 Personal history of other venous thrombosis and embolism; F41.9 Anxiety disorder, unspecified; S43.421A Sprain of right rotator cuff capsule, initial encounter; X58.XXXA Exposure to other specified factors, initial encounter; Y93.9 Activity, unspecified; Y92.9 Unspecified place or not applicable
CPT/HCPCS: 36415; 71045; 80048; 82962; 84550; 85025; 92507; 92526; 92610; 97110; 97116; 97163; 97166; 97530; 97535; 97802

== ENCOUNTER 2018-10-13 13:06 | Outpatient (RCR) | payer MEDICARE, SELFPAY ==
[2018-10-13 13:19] VITALS: BP 124/64; PULSE 70; RESP 18; TEMP 36.1; BMI 25.2
--- NOTE | 2018-10-13 14:48 | PCM.WC.PN ---
(1) Pressure ulcer of right foot, unstageable Status: Chronic Current Visit: Yes Code(s): L89.890 - Pressure ulcer of other site, unstageable (2) Delayed wound healing Status: Chronic Current Visit: Yes Code(s): T14.8XXD - Other injury of unspecified body region, subsequent encounter (3) Malnutrition Status: Chronic Current Visit: Yes Code(s): E46 - Unspecified protein-calorie malnutrition Type of Wound Date of Service: 10/15/18 Chief Complaint: Right heel ulcer History of Wound: This 83-year-old female with multiple comorbidities presented with right heel ulcer with an onset of over 1 month ago. She was hospitalized on 09/06/2018 for viral gastroenteritis. She underwent subsequent treatment and over the course of her hospitalization and rehab course she developed a pressure ulcer to the right heel. There is a scab present and she had a dressing applied at home. She tries to keep pressure off of the site by hanging the heel over pillows stacked in bed. She denies pain today. She thinks it is getting better. She denies known drainage or redness at this time. She denies previous claudication symptoms or rest paresthesias to the limb. She denies current fever, chill, nausea, vomiting or illness today. She is with her son. Past medical history: Atrial fibrillation, diabetes, depression, hypertension, hyperlipidemia, hypo-thyroidism, pacemaker, congestive heart failure, GERD, history of recurrent urinary tract infections, history of C. difficile. Medications: Reviewed in [facility] from her last discharge summary. Allergies: Exenatide, metformin, penicillin, simvastatin, clavulanic acid, prednisone, amoxicillin, Crestor. Surgical history: Cholecystectomy, hysterectomy, pacemaker placement, bilateral total knee arthroplasties, IVC filter placement, right hip fracture repair. Social history: Never a smoker. Family history: Myocardial infarction, cardiac. Current review of systems: Denies fever, chill, nausea, vomiting, shortness of breath, chest pain, claudication, rest paresthesias, rashes, other wounds, or weakness of the limb, current diarrhea Progress of Wound: Stable - Physical Exam Vital Signs Temp Pulse Resp BP 96.9 F L 70 18 124/64 H 10/13/18 13:19 10/13/18 13:19 10/13/18 13:19 10/13/18 13:19 General: Alert, Oriented x3, Cooperative, No apparent distress HEENT: Atraumatic Extremities: No cyanosis, Capillary Refill Less than 3 Seconds - All digits, No Calf Tenderness - Negative Andra and Serrato sign, Edema - Very mild lower extremity, Peripheral Pulses Normal Skin: Ulcer/ Wound - No purulence, erythema, streaking, odor, infection, maceration, or deep tissue exposure. There and eschar to the posterior plantar right heel upon debridement there is only a small area of soft hemorrhagic tissue that is pale pink. There is no fibrous tissue. Wound Measurements and Assessment WC - Nurse 1 - General Ulcer Measurement Start: 10/13/18 13:19 Freq: Status: Active Protocol: Activity Type Activity Date Activity User E-Sign Co-Sign Detail Recorded Client Recorded Date Recorded By Document 10/13/18 13:41 DARRYL [id number] 10/13/18 13:43 DARRYL 10/13/18 13:41 Wound Center Nurse 1 [Ulcer Assessment] 1-right heel -Combined with other wound No -Current Size (cm) - Length 0.1 -Current Size (cm) - Width 0.1 -Current Size (cm) - Depth 0.1 -Total Square Cm 0.01 -Photo Taken Yes -Epithelialization Large 67-100% -Tunneling No -Undermining/Tunneling No -Circular Undermining No -Classification - Pressure Ulcer Suspected Deep Tissue Injury -Exudate Amt None Present -Wound Margin Flat & Intact -Granulation Amt None Present (0 %) -Slough/Fibrin No -Structure Exposed N/A -Texture (Brenda-wound Skin Appearance) Assessed -Moisture (Brenda-wound Skin Appearance Assessed,Dry/ ) Scaly -Color (Brenda-wound Skin Appearance) Assessed -Temperature (Brenda-wound Skin No Abnormality Appearance) (Pt Warm) -Tenderness on Palpation (Brenda-wound No Skin Appearance) -Ulcer Cleansing Rinsed/ Irrigated with Saline -Foul Odor after Cleansing No -Anesthetic Used 5% Lidocaine Gel [Edema Assessment] -Lower Limb Edema Present Yes -Right Calf (cm) 34 -Right Ankle (cm) 23.5 -Left Calf (cm) 33.2 -Left Ankle (cm) 23.5 WC - Nurse 2 - General Ulcer CM Notes Start: 10/13/18 13:19 Freq: Status: Active Protocol: Activity Type Activity Date Activity User E-Sign Co-Sign Detail Recorded Client Recorded Date Recorded By Document 10/13/18 13:59 AN [id number] 10/13/18 14:02 AN 10/13/18 13:59 Wound Center Nurse 2 [Procedure/Treatment] 1-right heel -Time 14:00 -Correct Patient Yes -Correct Side, Site, Position Yes -Correct Procedure Yes -Procedure Performed Yes -Type of Procedure Debridement -Clinical Debridement Selective -Post Debridement Size (cm) - Length 6 -Post Debridement Size (cm) - Width 8 -Post Debridement Size (cm) - Depth 0.1 -Total Square Cm 48 -Wound/Ulcer Outcome Not Healed -Ulcer Cleansing Rinsed/ Irrigated with Saline -Foul Odor after Cleansing No -Bioengineered Tissue No -Bleeding Controlled with Pressure -Offloading Yes -Treatment Response Procedure Tolerated Well [See Physician Procedure note for Specifics] Pain Scale: 0-10 Numeric [Pain] -Is Patient Pain Free? Yes Musculoskeletal: No Tenderness to Palpation of Joints or Extremities, Muscle Wasting, - - No bogginess or fluctuance on palpation Neurological: Sensory exam intact to light touch and pain Psych/Mental Status: Normal Affect, Appropriate Debridement Note Post-Debridement Measurements/Treatment WC - Nurse 2 - General Ulcer CM Notes Start: 10/13/18 13:19 Freq: Status: Active Protocol: Activity Type Activity Date Activity User E-Sign Co-Sign Detail Recorded Client Recorded Date Recorded By Document 10/13/18 13:59 AN [id number] 10/13/18 14:02 AN 10/13/18 13:59 Wound Center Nurse 2 1-right heel -Time 14:00 -Correct Patient Yes -Correct Side, Site, Position Yes -Correct Procedure Yes -Procedure Performed Yes -Type of Procedure Debridement -Clinical Debridement Selective -Post Debridement Size (cm) - Length 6 -Post Debridement Size (cm) - Width 8 -Post Debridement Size (cm) - Depth 0.1 -Total Square Cm 48 -Wound/Ulcer Outcome Not Healed -Ulcer Cleansing Rinsed/ Irrigated with Saline -Foul Odor after Cleansing No -Bioengineered Tissue No -Bleeding Controlled with Pressure -Offloading Yes -Treatment Response Procedure Tolerated Well Pain Scale: 0-10 Numeric Is Patient Pain Free? Yes Wound debrided: posterior heel Type of Debridement: Selective debridement Anesthesia Used: 5% Lidocaine Gel Depth: Down to and including healthy tissue Percentage of wound debrided: 100 Instrument Used: #15 blade Tissue Removed: devitalized eschar and callous, biofilm, slough Severity: Limited To Skin Breakdown Amount of bleeding with debridement: Mild - scant Bleeding Controlled with: Pressure Patient tolerated procedure well Assessment/Plan Active Problems (Last Updated 09/07/18 @ 19:31 by Saroj Pena DO) Ulcer of right heel and midfoot, limited to breakdown of skin (Chronic) Pressure ulcer of right foot, unstageable (Chronic) Delayed wound healing (Chronic) Malnutrition (Chronic) Assessment: Right unstageable heel pressure ulcer, no infection (post debridement this is with skin deterioration noted). Delayed healing. Malnutrition suspected. Other comorbidities noted Plan: I reviewed and discussed her case. Her recent hospital notes were reviewed including her diagnostic data. Her CBC and CMP were reviewed without gross abnormalities. Her hemoglobin A1c from November 2017 was noted at 7%. Her albumin from 05/04 was 3.5. She has palpable pulses and her Doppler today was triphasic to bilateral posterior tibial arteries. After debridement of the eschar only a small area of some hemorrhagic tissue was noted. Selective debridement was performed as noted in the clinical nursing panel. She was advised to apply hydrogel and Adaptic and to change daily. Strict offloading is recommended. To continue offloading by hanging her heel over pillows or using offloading donut pillow. I recommend nutritional supplementation, Jj to optimize timely healing. She is reassured no signs of infection are noted. I recommend she returns to the wound healing center in 1 week or call sooner if she has any questions or concerns. I also answered her son's questions.
== END 2018-10-16 23:59 ==
LOC: WC 13:06
PROVIDERS: Family Provider Family Medicine; PCP Family Medicine; Visit Provider Podiatrist
DX: L89.890 Pressure ulcer of other site, unstageable (principal); E11.621 Type 2 diabetes mellitus with foot ulcer; I48.91 Unspecified atrial fibrillation; K21.9 Gastro-esophageal reflux disease without esophagitis; E78.5 Hyperlipidemia, unspecified; I11.0 Hypertensive heart disease with heart failure; I50.9 Heart failure, unspecified
CPT/HCPCS: 97597; 99212; G0463

== ENCOUNTER 2018-10-27 09:28 | Outpatient (RCR) | payer MEDICARE, SELFPAY ==
[2018-10-17 01:14] VITALS: BP 124/64; PULSE 70; RESP 18; TEMP 36.1
[2018-10-27 09:39] VITALS: BP 133/71; PULSE 67; RESP 18; TEMP 36.1; BMI 25.2
--- NOTE | 2018-10-27 10:15 | PCM.WC.PN ---
(1) Debility Status: Acute Code(s): R53.81 - Other malaise (2) Ulcer of right heel and midfoot, limited to breakdown of skin Status: Resolved Code(s): L97.411 - Non-pressure chronic ulcer of right heel and midfoot limited to breakdown of skin (3) DM2 (diabetes mellitus, type 2) Status: Chronic Code(s): E11.9 - Type 2 diabetes mellitus without complications Type of Wound Date of Service: 10/27/18 Chief Complaint: Right heel ulcer History of Wound: This 83-year-old female with multiple comorbidities presented with right heel ulcer with an onset of over 1 month ago. She was hospitalized on 09/06/2018 for viral gastroenteritis. She underwent subsequent treatment and over the course of her hospitalization and rehab course she developed a pressure ulcer to the right heel. There had a scab present and she had a dressing applied at home. She tries to keep pressure off of the site by hanging the heel over pillows stacked in bed. She denies pain today. She thinks it is getting better and denies drainage. She denies current fever, chill, nausea, vomiting or illness today. Progress of Wound: Healed - Physical Exam Vital Signs Temp Pulse Resp BP 96.9 F L 67 18 133/71 H 10/27/18 09:39 10/27/18 09:39 10/27/18 09:39 10/27/18 09:39 General: Alert, Oriented x3, Cooperative Extremities: No cyanosis, Capillary Refill Less than 3 Seconds, No Calf Tenderness, Edema - Mild, Peripheral Pulses Normal Skin: Ulcer/ Wound - Full epithelialization is noted and there is no purulence, erythema, streaking, odor, or infection. Her skin in general is atrophic Wound Measurements and Assessment WC - Nurse 1 - General Ulcer Measurement Start: 10/27/18 09:39 Freq: Status: Active Protocol: Activity Type Activity Date Activity User E-Sign Co-Sign Detail Recorded Client Recorded Date Recorded By Document 10/27/18 09:39 [facility] [id number] 10/27/18 09:44 [facility] 10/27/18 09:39 Wound Center Nurse 1 [Ulcer Assessment] 1-right heel -Combined with other wound No -Current Size (cm) - Length 0.1 -Current Size (cm) - Width 0.1 -Current Size (cm) - Depth 0.1 -Total Square Cm 0.01 -Photo Taken No -Epithelialization Large 67-100% -Tunneling No -Undermining/Tunneling No -Circular Undermining No -Exudate Amt None Present -Texture (Brenda-wound Skin Appearance) Assessed, Scarring -Moisture (Brenda-wound Skin Appearance Assessed,Dry/ ) Scaly -Color (Brenda-wound Skin Appearance) Assessed, Erythema -Temperature (Brenda-wound Skin No Abnormality Appearance) (Pt Warm) -Tenderness on Palpation (Brenda-wound No Skin Appearance) -Ulcer Cleansing Rinsed/ Irrigated with Saline -Foul Odor after Cleansing No -Anesthetic Used 5% Lidocaine Gel WC - Nurse 2 - General Ulcer CM Notes Start: 10/27/18 09:39 Freq: Status: Active Protocol: Activity Type Activity Date Activity User E-Sign Co-Sign Detail Recorded Client Recorded Date Recorded By Document 10/27/18 10:09 AN [id number] 10/27/18 10:09 AN 10/27/18 10:09 Pain Scale: 0-10 Numeric [Pain] -Is Patient Pain Free? Yes Musculoskeletal: No Tenderness to Palpation of Joints or Extremities, Muscle Wasting Psych/Mental Status: Normal Affect, Appropriate Debridement Note Post-Debridement Measurements/Treatment WC - Nurse 2 - General Ulcer CM Notes Start: 10/27/18 09:39 Freq: Status: Active Protocol: Activity Type Activity Date Activity User E-Sign Co-Sign Detail Recorded Client Recorded Date Recorded By Document 10/27/18 10:09 AN [id number] 10/27/18 10:09 AN 10/27/18 10:09 Pain Scale: 0-10 Numeric Is Patient Pain Free? Yes No debridement was completed today - healed Assessment/Plan Assessment: Right unstageable heel pressure ulcer -healed today. Other comorbidities noted Plan: I reviewed and discussed her case. Her ulcer site has healed and she is advised to discontinue ulcer dressing changes. She can also discontinue nutritional supplementation due to her recently healed status. To monitor this closely for return of the ulcer or infection which neither is noted today. She understands the skin will remodel over the next couple months and it is still friable. She is discharged from the wound healing center today. To follow-up as needed. I answer all her questions.
== END 2018-11-15 23:59 ==
LOC: WC 09:28
PROVIDERS: Family Provider Family Medicine; PCP Family Medicine; Visit Provider Podiatrist
DX: Z09 Encounter for follow-up examination after completed treatment for conditions other than malignant neoplasm (principal); E11.9 Type 2 diabetes mellitus without complications
CPT/HCPCS: 99212; G0463

== ENCOUNTER → 2019-06-20 14:55 | Outpatient (CLI) | payer MEDICARE, SELFPAY ==
[2019-04-04 07:48] VITALS: BMI 25.2
[2019-06-20 15:35] LABS: Absolute Neutrophil Count 5.7 X10^3/uL (2.0-7.7); Basophil# 0.03 X10^3/uL; Basophil% 0.4 % (0-1); Eosinophil# 0.14 X10^3/uL; Eosinophils% 1.8 % (0-5); Hematocrit 45.8 % (37-47); Hemoglobin 14.4 g/dL (12.0-15.0); Lymphocyte % 13.2 % (19-41); Mean Corp Hgb Conc 31.4 g/dL (32-36); Mean Corpuscular Hgb 27.6 pg (27.0-32.0); Mean Corpuscular Volume 87.7 fL (81-99); Mean Platelet Vol. 10.7 fl (6.2-12.0); Monocyte% 9.2 % (0-10); NRBC Flagged by Analyzer 0 % (0-5); Neutrophil # 5.68 X10^3/uL (2.7-7.7); Neutrophil % 74.9 % (47-70); Platelet Count 172 K/mm3 (150-450); RBC Distribution Width CV 14.7 % (11.6-14.6); RBC Distribution Width SD 47.5 fl (35.1-43.9); Red Blood Count 5.22 M/mm3 (4.2-5.4); White Blood Count 7.6 K/mm3 (4.4-11.0)
[2019-06-20 16:09] LABS: Hemoglobin A1c 6.8 % (4.2-6.3)
[2019-06-20 16:17] LABS: AST(SGOT) 14 U/L (15-37); Alanine Aminotransfer ALT/SGPT 15 U/L (13-56); Albumin, Serum 3.4 g/dL (3.2-5.0); Alkaline Phosphatase 61 U/L (45-117); Anion Gap 5 (5-15); BUN 20 mg/dL (7-18); BUN/Creat Ratio 25.7 RATIO (10-20); Calcium,Total 9.4 mg/dL (8.5-10.1); Chloride 108 mmol/L (98-107); Creatinine, Serum 0.78 mg/dL (0.55-1.02); EST Glomerular Filtration Rate 75 mL/min (>60); Est Glom Filt Rate - Afr Amer 91 mL/min (>60); Globulin 3.5 g/dL (2.2-4.2); Glucose 123 mg/dL (74-106); Protein, Total 6.9 g/dL (6.4-8.2); Sodium Level 140 mmol/L (136-145); T4 Free Direct 1.35 ng/dL (0.76-1.46)
== END ==
PROVIDERS: PCP Family Medicine; Referring Provider Family Medicine; Visit Provider Family Medicine
DX: E11.21 Type 2 diabetes mellitus with diabetic nephropathy (principal); I10 Essential (primary) hypertension; E03.9 Hypothyroidism, unspecified; Z51.81 Encounter for therapeutic drug level monitoring
CPT/HCPCS: 36415; 80053; 83036; 84439; 84443; 85025

== ENCOUNTER → 2019-08-09 10:42 | Outpatient (CLI) | payer MEDICARE, SELFPAY ==
[2019-04-04 07:48] VITALS: BMI 25.2
--- NOTE | 2019-08-09 10:45 | RAD_ITS ---
STUDY: X-RAY - LEFT FOOT CLINICAL: Female, 84 years old. Pain after trauma TECHNIQUE: 3 view(s) of the foot. COMPARISON: None. FINDINGS: The bones are diffusely demineralized. Prominent calcaneal heel spurs are noted. Degenerative arthrosis noted all visualized joint spaces, most notably in the interphalangeal joint of the great toe and in the PIP and DIP joints of the second to the fifth toes. No demonstrated fracture, however, subtle fracture could easily be present and overlooked due to the osteopenia and overlapping osseous structures. Dense vascular calcifications are noted suggesting likely underlying diabetes. There is nonspecific dorsal soft tissue swelling RAD/Foot min 3 Views IMPRESSION: Diffuse osteopenia with polyarticular arthrosis and prominent calcaneal spurs. No demonstrated fracture Nonspecific soft tissue swelling Electronically Signed: Yuniel Mejia MD at 11:27 EDT , Service support ,
== END ==
PROVIDERS: PCP Family Medicine; Referring Provider Family Medicine; Visit Provider Family Medicine
DX: M79.672 Pain in left foot (principal)
CPT/HCPCS: 73630

== ENCOUNTER → 2019-08-12 13:05 | Outpatient (CLI) | payer MEDICARE, SELFPAY ==
[2019-04-04 07:48] VITALS: BMI 25.2
== END ==
PROVIDERS: PCP Family Medicine; Visit Provider Family Medicine
DX: R19.7 Diarrhea, unspecified (principal)

== ENCOUNTER → 2019-10-07 11:58 | Outpatient (CLI) | payer MEDICARE, SELFPAY ==
[2019-04-04 07:48] VITALS: BMI 25.2
[2019-10-07 15:21] LABS: Absolute Lymphocyte Count 1.02 X10^3/uL (0.83-4.51); Absolute Neutrophil Count 5.9 X10^3/uL (2.0-7.7); Basophil# 0.04 X10^3/uL; Basophil% 0.5 % (0-1); Eosinophil# 0.15 X10^3/uL; Eosinophils% 1.9 % (0-5); Hemoglobin 14.6 g/dL (12.0-15.0); Lymphocyte # 1.02 X10^3/ul (4.0); Lymphocyte % 13.1 % (19-41); Mean Corp Hgb Conc 31.1 g/dL (32-36); Mean Corpuscular Volume 86.9 fL (81-99); Mean Platelet Vol. 11.7 fl (6.2-12.0); Monocyte# 0.64 X10^3/uL; Monocyte% 8.2 % (0-10); NRBC Flagged by Analyzer 0 % (0-5); Neutrophil % 75.9 % (47-70); Platelet Count 189 K/mm3 (150-450); RBC Distribution Width CV 14.8 % (11.6-14.6); RBC Distribution Width SD 46.9 fl (35.1-43.9); Red Blood Count 5.41 M/mm3 (4.2-5.4); White Blood Count 7.8 K/mm3 (4.4-11.0)
[2019-10-07 15:33] LABS: ALB/GLOB Ratio 0.9 RATIO (0.9-2.4); AST(SGOT) 12 U/L (15-37); Alanine Aminotransfer ALT/SGPT 14 U/L (13-56); Albumin, Serum 3.5 g/dL (3.2-5.0); Alkaline Phosphatase 66 U/L (45-117); Anion Gap 6 (5-15); BUN 34 mg/dL (7-18); BUN/Creat Ratio 29.8 RATIO (10-20); Calcium,Total 9.2 mg/dL (8.5-10.1); Chloride 105 mmol/L (98-107); Creatinine, Serum 1.14 mg/dL (0.55-1.02); EST Glomerular Filtration Rate 48 mL/min (>60); Est Glom Filt Rate - Afr Amer 58 mL/min (>60); Globulin 3.7 g/dL (2.2-4.2); Glucose 161 mg/dL (74-106); Potassium 3.7 mmol/L (3.5-5.1); Protein, Total 7.2 g/dL (6.4-8.2); Sodium Level 140 mmol/L (136-145)
[2019-10-07 15:44] LABS: BNP,B-Type NATRIURETIC PEPTIDE 90.8 pg/mL (0-100)
== END ==
PROVIDERS: PCP Family Medicine; Visit Provider Family Medicine
DX: I42.8 Other cardiomyopathies (principal); I10 Essential (primary) hypertension
CPT/HCPCS: 36415; 80053; 83880; 85025

== ENCOUNTER 2020-05-24 05:00 | Inpatient (IN) | payer MEDICARE, SELFPAY ==
[2019-11-29 15:35] VITALS: BMI 24.7
[2020-05-24] VITALS (18 sets, daily range): BP systolic 111–158; BP diastolic 57–85; PULSE 74–88; RESP 16–20; TEMP 36.2–36.8; O2SAT 75–98; BMI 23.8; BMI 23.9
--- NOTE | 2020-05-24 05:03 | RAD_ITS ---
STUDY: X-RAY CHEST REASON FOR EXAM: Female, 85 years old patient with back pain to palpation after fall. TECHNIQUE: AP and lateral views of the chest. COMPARISON: Chest radiograph dated 10/02/2018 and 05/17/2018. FINDINGS: Left-sided intracardiac pacemaker is present. Cardiac monitoring leads are present. The lungs are underexpanded with crowding of bronchovascular markings and obscuration of the lung bases. There is no demonstrated pleural abnormality. There is borderline cardiomegaly. Normal mediastinum and becky. There is prominence of the pulmonary hilar arteries without peripheral pulmonary vascular congestion. There is atherosclerotic calcification of the aortic arch with tortuosity. There is demineralization of the osseous structures. There is increased thoracic kyphosis. There is severe compression fracture of what may represent T9, unchanged since previous radiograph. Normal visualized ribs, clavicles, and shoulders. There is no demonstrated abnormality of the visualized soft tissue structures of the upper abdomen. RAD/Chest PA and Lateral IMPRESSION: 1. No radiographic evidence of acute cardiopulmonary disease. 2. Osteoporosis with old compression fracture of the thoracic vertebral body. Electronically Signed: Nancy Stone MD at 6:25 EDT , Service support ,
--- NOTE | 2020-05-24 05:04 | RAD_ITS ---
STUDY: X-RAY - LUMBAR SPINE REASON FOR EXAM: Female, 85 years old patient with low back pain after injury. TECHNIQUE: AP and lateral view(s) of the lumbar spine were obtained. COMPARISON: Radiographs of the lumbar spine dated 10/09/2016. FINDINGS: There is an exaggerated lumbar lordosis. There is no substantial scoliosis. There is a normal alignment of the vertebrae. There is generalized demineralization of the vertebral bodies. There is multi-level degenerative disc disease with multi-level disc space narrowing. There is no demonstrated fracture. There is multilevel degenerative arthropathy of the facet joints. There is atherosclerotic calcification of the abdominal aorta without a demonstrated aneurysm. Patient has inferior vena caval filter. RAD/Lumbar Spine 2 or 3 Views IMPRESSION: 1. Osteoporosis. 2. 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 Electronically Signed: Nancy Stone MD at 6:21 EDT , Service support ,
--- NOTE | 2020-05-24 05:04 | ED.VIS.INJ ---
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 She was walking with her walker. Her walker went out in front of her. She lost her balance falling backwards. She states she struck her back. She denies head trauma. She denies loss of conscious. She denies being dazed. She denies headache. She denies nausea or vomiting. She denies visual, ocular auditory symptoms. She denies neck pain. She is on Eliquis due to history of VTE (PE and DVT). Patient denies fever, chills night sweats. Patient denies shortness of breath or cough. Patient denies chest discomfort. She denies vomiting, diarrhea, melena or hematochezia. She denies dysuria, frequency, urgency or hematuria. She also reports right ankle pain. She denies hip pain. Paramedics reported concern for hip fracture. She denies knee or hip pain. Her leg is shortened. Tetanus Immunization: >10 years Prior similar symptoms: No Recent Illness/Hospitalization: No - Past Medical History (1) History of pulmonary embolus (PE) Status: Acute (2) History of DVT (deep vein thrombosis) Status: Acute (3) Paroxysmal atrial fibrillation Status: Acute (4) CHF (congestive heart failure) Status: Chronic (5) CKD (chronic kidney disease) stage 3, GFR 30-59 ml/min Status: Chronic (6) Cardiac pacemaker in situ Status: Chronic (7) Cardiomyopathy, nonischemic Status: Chronic (8) Chronic diastolic (congestive) heart failure Status: Chronic (9) DM2 (diabetes mellitus, type 2) Status: Chronic (10) GERD (gastroesophageal reflux disease) Status: Chronic (11) HLD (hyperlipidemia) Status: Chronic (12) Hypothyroidism Status: Chronic (13) Iron deficiency anemia Status: Chronic (14) Pulmonary hypertension Status: Chronic (15) Sick sinus syndrome Status: Chronic (16) [facility] current use of anticoagulant Status: Acute Past Medical History - Allergies and Home Meds Allergies/Adverse Reactions: Allergies exenatide [From Byetta] Allergy (Verified 10/13/20 15:28) Unknown metformin Allergy (Verified 11/29/19 15:28) Rash Penicillins [PCN] Allergy (Verified 11/29/19 15:28) Unknown simvastatin [From Zocor] Adverse Reaction (Severe, Verified 11/29/19 15:28) Myalgias prednisone Adverse Reaction (Unknown, Verified 11/29/19 15:28) effects blood sugar amoxicillin [From Augmentin] Adverse Reaction (Verified 11/29/19 15:28) Diarrhea clavulanic acid [From Augmentin] Adverse Reaction (Verified 11/29/19 15:28) Diarrhea crestor Adverse Reaction (Intermediate, Uncoded 12/06/18 13:27) myalgia Primary Care Physician: Saroj Fajardo DO [Primary Care Provider] - Prior records reviewed: Yes Surgical History: cholecystectomy, hysterectomy, pacemaker implantation, total knee arthroplasty - Bilateral., - - IVC filter, right hip fracture repair. Lives: Alone Smoking Status: Never smoker Alcohol: None Drugs: None - Family History Paternal Family History: Family History (Last Reviewed 12/06/18 @ 13:28 by Altagracia Menard) Father Myocardial infarction Family History: Reports: Heart Disease Maternal Family History: Family History (Last Reviewed 12/06/18 @ 13:28 by Altagracia Menard) Father Myocardial infarction Family History: Reports: - - No marked maternal family history including heart disease, diabetes or cancer. Additional Family History: No venous thromboembolic disease Review of Systems General: Denies: Chills, Fever, Malaise, Subjective, Sweats Eyes: Denies: Visual changes - bilaterally, Blurred Vision - bilaterally, Diplopia ENT: Reports: - - Denies ringing in ears or decreased hearing. She denies epistaxis.. Denies: Bilateral ear pain, Rhinorrhea, Sore throat Cardiovascular: Denies: Chest pain, Palpitations, Heart racing Respiratory: Denies: Dyspnea, Cough, Dyspnea on exertion Gastrointestinal: Denies: Abdominal pain, Nausea, Vomiting, Diarrhea, Melena Genitourinary: Denies: Dysuria, Hematuria, Frequency Musculoskeletal: Reports: Back pain, Swelling, Extremity Pain - Right ankle. Denies: Myalgias, Arthralgias, Neck pain Skin: Denies: Rash, Wounds Neurological: Denies: Headache, Weakness, Parasthesia Endocrine: Denies: Polyuria, Polydipsia Hematologic: Reports: Easy bruising. Denies: Easy bleeding Allergy: Denies: Uticaria Physical Exam Inital Vital Signs reviewed: Yes General: Well nourished, Well developed Head: Normocephalic, Atraumatic. Negative for: Trauma, Tenderness Eyes: Perrl, EOMI. Negative for: Pale conjunctiva, Scleral icterus ENT: TM's clear, No hemotympanum or drainage, No trauma, - - Clinical findings of basilar skull fracture.. Negative for: Hemotympanum, Otorrhea, Nasal trauma, Nasal septal hematoma Neck: Nontender, Full ROM, - - Trachea is midline.. Negative for: Spinal Tenderness, Paraspinal Tenderness Cardiovascular: Regular rate, Regular rhythm, No murmurs, Normal S1, Normal S2 Respiratory: No distress, CTA bilaterally, Diminished, Chest tenderness - Palpation left and right ribs 5 through 6 anterior to posterior axillary line Abdomen: Soft, Nontender, Nondistended, Normal bowel sounds Back: Spinal Tenderness - Lumbar, Paraspinal Tenderness - Paralumbar bilateral. Negative for: Nontender, CVA Tenderness - Right, CVA Tenderness - Left Extremeties: There is pain no patient over the right lateral and medial malleolus. There is soft tissue swelling noted. There is no pain no patient of the base of the fifth metatarsal. Patient does have edema bilaterally. EHL is intact. There is no pain palpation of the right or left knee. Scar noted due to total knee arthroplasty. There is no pain ovation over the right or left greater trochanteric. Logrolling does not cause discomfort. The leg is shortened on the right. She does complain of pain over the pelvis bilaterally. Skin: Normal color, No rash, Trauma - Oozing noted left flank area. Negative for: Cyanosis, Diaphoresis, Jaundice Neurological: Alert, Oriented x3, Cranial nerves II-XII grossly intact, Normal Strength, Normal Sensation, Normal DTR - 1+ upper and lower extremity and no clonus or Babinski sign.. Negative for: Normal Gait Psychological: Normal affect - Glascow Coma Scale Eye Opening: Spontaneous Motor: Obeys Commands Verbal: Oriented Coma Scale Total: 15 Diagnostic/Tx/Re-eval Chest X-Ray - ED: 1 View - Single view x-ray of the pelvis was obtained. Patient had prior surgery due to femoral neck fracture on the right. There is no fracture of the pelvis noted. There is no fracture of the left femur., 2 View - 2 view chest x-ray was interpreted by me as positive for kyphoscoliosis. There is no pneumothorax, hemothorax. There is no infiltrate. There is a dual-chamber pacemaker noted. There is degenerative changes noted of the dorsal spine., Read by ED Physician - Three-view x-ray of the ankle reveals osteopenia. There is calcification of multiple vessels. There is a nondisplaced medial malleolus fracture noted. (right ankle), - - Three-view x-ray of the LS-spine reveals degenerative changes. There is mild lumbar spondylolisthesis of L4 S1. There is a Mirtha filter noted. There is calcification of the aorta. There is degenerative changes noted multiple levels worst at L4-L5. All x-rays were interpreted by me at 0614. Impressions Chest X-Ray 05/24/20 05:03 IMPRESSION: 1. No radiographic evidence of acute cardiopulmonary disease. 2. Osteoporosis with old compression fracture of the thoracic vertebral body. Electronically Signed: Nancy Stone MD at 6:25 EDT , Service support , Lumbar Spine X-Ray 05/24/20 05:04 IMPRESSION: 1. Osteoporosis. 2. 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 Electronically Signed: Nancy Stone MD at 6:21 EDT , Service support , Ankle X-Ray 05/24/20 05:05 IMPRESSION: 1. Moderately severe soft tissue swelling. 2. Osteoporosis. 3. No obvious acute fracture or dislocation. Electronically Signed: Nancy Stone MD at 6:08 EDT , Service support , Pelvis X-Ray 05/24/20 05:05 IMPRESSION: 1. Metallic foreign body is visible in the right pelvis. 2. Osteoporosis. Electronically Signed: Nancy Stone MD at 6:16 EDT , Service support , 05/24/20 05:03 Chest PA and Lateral [RAD] Stat 05/24/20 05:04 Lumbar Spine 2 or 3 Views [RAD] Stat 05/24/20 05:05 Ankle min 3 Views [RAD] Stat Pelvis 1 or 2 Views [RAD] Stat Laboratory Results 05/24/20 05/24/20 05/24/20 05:15 05:15 06:49 WBC 8.2 RBC 5.65 H Hgb 15.9 H Hct 50.4 H MCV 89.2 MCH 28.1 MCHC 31.5 L RDW Std Deviation 47.4 H RDW Coeff of Rema 14.5 Plt Count 142 L MPV 10.5 Immature Gran % (Auto) 1.600 H Neut % (Auto) 66.8 Lymph % (Auto) 19.4 [place] % (Auto) 10.2 H Eos % (Auto) 1.5 Baso % (Auto) 0.5 Absolute Neuts (auto) 5.5 Absolute Lymphs (auto) 1.58 Nucleated RBC % 0 Sodium 138 Potassium 4.3 Chloride 103 Carbon Dioxide 30.0 Anion Gap 5 BUN 32 H Creatinine 1.26 H Estim Creat Clear Calc 34.11 Est GFR (MDRD) Af Amer 52 L Est GFR (MDRD) Non-Af 43 L BUN/Creatinine Ratio 25.4 H Glucose 196 H Calcium 9.3 Urine Color Yellow Urine Clarity Cloudy Urine pH 5.0 Ur Specific [place] 1.015 Urine Protein 15 H Urine Glucose (UA) Normal Urine Ketones Negative Urine Occult Blood 10 H Urine Nitrite Positive H Urine Bilirubin Negative Urine Urobilinogen Normal Ur Leukocyte Esterase 500 H Urine RBC 0 SEEN Urine WBC >100 SEEN Ur Squamous Epith Cells 0-5 SEEN Urine Bacteria 1+ Urine Mucus 0 SEEN The interpretation by radiologist for x-ray reveals soft tissue swelling. On the PA view there appears to be a nondisplaced fracture of the medial malleolus. Believe this to be acute. This may be old as well. On exam patient has point tenderness over the distal aspect of the medial malleolus. Urine is turbid and consistent with urinary tract infection. Culture was sent. She received 1 g of Rocephin. - Medical Decision Making With history of fall and evidence of trauma of the left flank area UA was obtained to assess for hematuria/renal contusion/injury. Chest x-ray was obtained to assess for pneumothorax, hemothorax and obvious fractured ribs. CBC to assess H&H. Basic metabolic panel to assess renal function since she has history of chronic renal disease. Since she has pain ovation over the lateral medial malleolus x-ray of the ankle was obtained to rule out fracture. She also had pain to palpation over the pelvis and reason for x-ray to rule out pelvic fracture. Review of prior records indicates that patient's right hip fracture was repaired by Dr. Rad Stone. Procedures - Lower Extremity Splints Lower Extremity Splint: Orthoglass - Posterior short leg splint, - Splint Fabrication: Fabricated Location: Right ED Disposition - Plan for ED Patient: Disposition: Acute Care [facility] Diagnosis: Urinary tract infection, Nondisplaced fracture of medial malleolus of right tibia, initial encounter for closed fracture, Elevated serum creatinine, penitentiary current use of anticoagulant, Essential hypertension Referrals: Saroj Fajardo DO [Primary Care Provider] -
--- NOTE | 2020-05-24 05:05 | RAD_ITS ---
STUDY: X-RAY - RIGHT ANKLE REASON FOR EXAM: Female, 85 years old patient with right-sided ankle pain after injury. TECHNIQUE: 3 view(s) of the ankle. COMPARISON: Radiographs of the right ankle dated 04/21/2011. FINDINGS: The bones appear osteopenic. Normal medial and lateral malleoli. Normal tibiotalar articulation and ankle mortise. Tarsal bones generally normal alignment. The pelvis and degenerative changes of the tarsometatarsal articulations with joint space narrowing. There may be small erosions visible in the tarsal bones. There is no demonstrated fracture. There is moderate soft tissue swelling. There are vascular calcifications within the soft tissues of the distal leg. RAD/Ankle min 3 Views IMPRESSION: 1. Moderately severe soft tissue swelling. 2. Osteoporosis. 3. No obvious acute fracture or dislocation. Electronically Signed: Nancy Stone MD at 6:08 EDT , Service support ,
--- NOTE | 2020-05-24 05:05 | RAD_ITS ---
STUDY: X-RAY - PELVIS REASON FOR EXAM: Female, 85 years old patient with pelvic pain after injury. TECHNIQUE: One view of the pelvis was obtained. COMPARISON: Radiographs of the abdomen dated 04/30/2018. FINDINGS: There is a non-specific bowel gas pattern. There is a metallic foreign body within the right pelvis that is new since the previous study. There is diffuse demineralization of the osseous structures. Sacroiliac joints, hip joints and pubic symphysis are within normal limits. Bowel gas and/or stool obscures anatomy of the sacrum and iliac wings. Normal visualized bilateral superior and inferior pubic rami. Normal pubic symphysis. Normal ischial tuberosities. The patient has had open reduction internal fixation of the intertrochanteric right femoral fracture. There is osteoarthritic spur formation of the right acetabular rim. There is mild articular joint space narrowing of the right hip. Normal visualized left femoral head. There is osteoarthritic spur formation of the left acetabular rim. There is mild articular joint space narrowing of the left hip. RAD/Pelvis 1 or 2 Views IMPRESSION: 1. Metallic foreign body is visible in the right pelvis. 2. Osteoporosis. Electronically Signed: Nancy Stone MD at 6:16 EDT , Service support ,
[2020-05-24 05:18] LABS: Absolute Lymphocyte Count 1.58 X10^3/uL (0.83-4.51); Absolute Neutrophil Count 5.5 X10^3/uL (2.0-7.7); Basophil# 0.04 X10^3/uL; Basophil% 0.5 % (0-1); Eosinophil# 0.12 X10^3/uL; Eosinophils% 1.5 % (0-5); Hematocrit 50.4 % (37-47); Hemoglobin 15.9 g/dL (12.0-15.0); Lymphocyte # 1.58 X10^3/ul (4.0); Lymphocyte % 19.4 % (19-41); Mean Corp Hgb Conc 31.5 g/dL (32-36); Mean Corpuscular Hgb 28.1 pg (27.0-32.0); Mean Corpuscular Volume 89.2 fL (81-99); Mean Platelet Vol. 10.5 fl (6.2-12.0); Monocyte# 0.83 X10^3/uL; Monocyte% 10.2 % (0-10); NRBC Flagged by Analyzer 0 % (0-5); Neutrophil # 5.46 X10^3/uL (2.7-7.7); Neutrophil % 66.8 % (47-70); Platelet Count 142 K/mm3 (150-450); RBC Distribution Width CV 14.5 % (11.6-14.6); RBC Distribution Width SD 47.4 fl (35.1-43.9); Red Blood Count 5.65 M/mm3 (4.2-5.4); White Blood Count 8.2 K/mm3 (4.4-11.0)
[2020-05-24] MEDS: Ondansetron 4 MG/2 ML Vial IV (05:19)
[2020-05-24] MEDS: Morphine 4 MG/ML Syringe IV (05:19)
[2020-05-24 05:39] LABS: Anion Gap 5 (5-15); BUN 32 mg/dL (7-18); BUN/Creat Ratio 25.4 RATIO (10-20); Calcium,Total 9.3 mg/dL (8.5-10.1); Chloride 103 mmol/L (98-107); Creatinine, Serum 1.26 mg/dL (0.55-1.02); EST Glomerular Filtration Rate 43 mL/min (>60); Est Glom Filt Rate - Afr Amer 52 mL/min (>60); Estimated Creatinine Clearance 34.11 ml/min; Glucose 196 mg/dL (74-106); Potassium 4.3 mmol/L (3.5-5.1); Sodium Level 138 mmol/L (136-145)
[2020-05-24 06:53] LABS: Color, Urine Yellow (Yellow); Glucose, Dipstick Normal (Normal); Ketone-Dipstick Negative (Negative); Leukocyte Esterase-Dipstick 500 /ul (Negative); Mucous, Urine 0 SEEN /hpf (<or=2+); Nitrite-Dipstick Positive (Negative); Occult Blood-Urine 10 /ul (Negative); Protein-Dipstick 15 mg/dl (Negative); Red Blood Cells-Urine 0 SEEN /hpf (0-5); Specific Gravity, Urine 1.015 (1.002-1.030); Urine Bilirubin Dipstick Negative (Negative); Urine Clarity Cloudy (Clear); Urine Urobilinogen Normal (Normal)
[2020-05-24 07:01] LABS: Bacteria 1+ /hpf (None Seen); White Blood Cells >100 SEEN /hpf (0-5)
[2020-05-24 07:02] LABS: Squamous Epithelial Cells - UA 0-5 SEEN /hpf (5-10)
--- NOTE | 2020-05-24 07:24 | HP.PCM_ITS ---
History of Present Illness Date of Admission: 05/24/20 Chief Complaint: mechanical fall The patient is a 85 year old F with a past medical history as outlined who was admitted through the ED on 05/24/2020 with a complaint of mechanical fall. Patient tripped after her walker went out in front of her and she lost her balance and fell backwards. She denied any head trauma but admitted to striking her back. She denied any lightheadedness or dizziness or palpitations and denied any nausea or vomiting. She denies having such falls previously. Complaint of right ankle pain after mechanical fall. She was therefore brought into the ED. Review of systems otherwise negative. The ED, vitals were essentially stable. She was saturating at 98% on 2 L of oxygen. Chemistry showed creatinine of 1.26 with calcium of 9.3 was otherwise unremarkable. CBC showed hemoglobin of 15.9 and WBC of 8.2, with platelets of 142. Analysis showed 1+ bacteria with positive nitrites and leukocyte esterase 500 more than 100 WBC. X-ray of the right ankle showed moderately severe soft tissue swelling with no obvious acute fracture or dislocation. X-ray of the pelvis showed metallic foreign body visible in the right pelvis with osteoporosis but no fracture. She has been admitted to be managed for debility due to mechanical fall as well as UTI. [] Past Medical History Past Medical History (Chronic Problems): Chronic Problems (Last Reviewed 12/01/19 @ 11:02 by Altagracia GARNER, PA) Essential hypertension (Chronic) Pressure ulcer of right foot, unstageable (Chronic) Delayed wound healing (Chronic) Malnutrition (Chronic) CKD (chronic kidney disease) stage 3, GFR 30-59 ml/min (Chronic) Sick sinus syndrome (Chronic) Cardiomyopathy, nonischemic (Chronic) HLD (hyperlipidemia) (Chronic) Hypothyroidism (Chronic) Hypokalemia (Chronic) Chronic diastolic (congestive) heart failure (Chronic) Iron deficiency anemia (Chronic) GERD (gastroesophageal reflux disease) (Chronic) Cardiac pacemaker in situ (Chronic) DM2 (diabetes mellitus, type 2) (Chronic) CHF (congestive heart failure) (Chronic) Pulmonary hypertension (Chronic) Medical History: Medical History (Last Reviewed 12/01/19 @ 11:02 by Altagracia GARNER, PA) Paroxysmal atrial fibrillation (Acute) I48.0 Essential hypertension (Chronic) I10 Sick sinus syndrome (Chronic) I49.5 Cardiomyopathy, nonischemic (Chronic) I42.8 HLD (hyperlipidemia) (Chronic) E78.5 Hypothyroidism (Chronic) E03.9 Hypokalemia (Chronic) E87.6 Chronic diastolic (congestive) heart failure (Chronic) I50.32 Iron deficiency anemia (Chronic) D50.9 GERD (gastroesophageal reflux disease) (Chronic) K21.9 Cardiac pacemaker in situ (Chronic) Z95.0 DM2 (diabetes mellitus, type 2) (Chronic) E11.9 CHF (congestive heart failure) (Chronic) I50.9 Pulmonary hypertension (Chronic) I27.2 Acute kidney injury N17.9 Chronic diarrhea K52.9 Cystitis N30.90 Dementia F03.90 Depression F32.9 Encephalopathy G93.40 Gout M10.9 Postoperative anemia D64.9 Atrophic vaginitis N95.2 Depression F32.9 Gout M10.9 Acute deep vein thrombosis (DVT) of left lower extremity I82.402 Acute kidney injury N17.9 Debility R53.81 Diarrhea R19.7 Edema R60.9 Fracture of right femur S72.91XA Hypotension I95.9 Syncope and collapse R55 UTI (urinary tract infection) N39.0 Ulcer of right heel and midfoot, limited to breakdown of skin L97.411 Viral gastroenteritis A08.4 Acute kidney injury (Inactive) N17.9 Afib (Inactive) I48.91 Chronic diarrhea (Inactive) K52.9 Cystitis (Inactive) N30.90 no culture obtained DVT of axillary vein, acute left (Inactive) I82.A12 Dementia (Inactive) F03.90 Depression (Inactive) F32.9 Diarrhea (Inactive) R19.7 Dvt femoral (deep venous thrombosis) (Inactive) I82.419 left leg Encephalopathy (Inactive) G93.40 Fall (Inactive) W19.XXXA Gout (Inactive) M10.9 Muscle spasm (Inactive) M62.838 Pacemaker (Inactive) Z95.0 Postoperative anemia (Inactive) D64.9 Thrush (Inactive) B37.0 Allergies exenatide [From Byetta] Allergy (Verified 11/29/19 15:28) Unknown metformin Allergy (Verified 11/29/19 15:28) Rash Penicillins [PCN] Allergy (Verified 11/29/19 15:28) Unknown simvastatin [From Zocor] Adverse Reaction (Severe, Verified 11/29/19 15:28) Myalgias prednisone Adverse Reaction (Unknown, Verified 11/29/19 15:28) effects blood sugar amoxicillin [From Augmentin] Adverse Reaction (Verified 11/29/19 15:28) Diarrhea clavulanic acid [From Augmentin] Adverse Reaction (Verified 11/29/19 15:28) Diarrhea crestor Adverse Reaction (Intermediate, Uncoded 12/06/18 13:27) myalgia Home Medications: Ambulatory Orders Medication Instructions Recorded Apixaban [Eliquis] 5 mg PO BID 04/30/18 Ascorbic Acid [Vitamin C] 500 mg PO DAILY 08/18/18 Febuxostat [Uloric] 80 mg PO DAILY 08/18/18 Melatonin 6 mg PO QHS 08/18/18 Pantoprazole Sodium [Protonix] 40 mg PO DAILY 08/18/18 Digoxin 125 mcg PO DAILY 09/06/18 Metoprolol Tartrate [Lopressor 25 mg PO BID 09/06/18 (beta chanel)] Mirtazapine 15 mg PO QHS 09/06/18 Multivitamin with Minerals 1 tab PO DAILY 09/06/18 [Multiple Vitamin] Acetaminophen [Tylenol] 1,000 mg PO Q6H PRN PRN tab 09/30/18 sitagliptin 100 mg tablet 100 mg PO DAILY 11/29/19 Cranberry Conc/Ascorbic Acid 2 each PO BID 05/24/20 [Cranberry Plus Vitamin C Sftgl] Escitalopram Oxalate [Lexapro] 10 mg PO DAILY 05/24/20 Furosemide [Lasix] 20 mg PO 05/24/20 Methenamine Hippurate [Hiprex] 1 gm PO BID 05/24/20 Surgical History: Surgical History (Last Reviewed 12/06/18 @ 13:28 by Altagracia Menard) H/O: hysterectomy Z90.710 History of bilateral knee replacement Z96.653 History of cholecystectomy Z90.49 Presence of vena cava filter Z95.828 implantation pacemakr pacemaker generator change Surgical History: cholecystectomy, hysterectomy, pacemaker implantation, total knee arthroplasty - Bilateral., - - IVC filter, right hip fracture repair. 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 Review of Systems Constitutional: Reports: Malaise, Weakness, Fatigue. Denies: Chills, Fever, Weight Change Eyes: Denies: Blurred vision HEENT: Denies: Head Aches, Sinus Congestion, Sinus Drainage Cardiovascular: Denies: Chest Pain, Palpitations Respiratory: Denies: Cough, Shortness of Breath, Shortness of breath at rest, Shortness of breath upon exertion, Sputum production Gastrointestinal: Denies: Abdominal Pain, Nausea, Vomiting Genitourinary: Denies: Dysuria Musculoskeletal: Reports: Foot Pain, Leg Pain. 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 (Acute) Urinary tract infection (Acute) Nondisplaced fracture of medial malleolus of right tibia, initial encounter for closed fracture (Acute) Elevated serum creatinine (Acute) Paroxysmal atrial fibrillation (Acute) - Physical Exam Vitals/I&O's: Vital Signs Temp Pulse Resp BP Pulse Ox 97.3 F L 74 18 151/73 H 92 05/24/20 05:01 05/24/20 05:01 05/24/20 05:01 05/24/20 05:01 05/24/20 05:01 Oxygen Delivery Method Room Air Weight: 161 lb 13.109 oz Body Mass Index (BMI) 23.8 Finger Stick Blood Glucose 276 General: Alert, Oriented x3, Cooperative HEENT: Atraumatic, PERRLA, EOMI, Normocephalic Oral: Dry Mucosa Neck: Supple, No JVD, Negative Carotid Bruits Lungs: Clear to auscultation, Normal air movement Cardiovascular: Regular rate, No murmurs Abdomen: Bowel Sounds Present, Soft, Non Tender Extremities: No edema, Capillary Refill Less than 3 Seconds Skin: No rashes, No breakdown Musculoskeletal: - - RLE in a splint Lymphatic: No Cervical, Supraclavicular, or Inguinal Adenopathy Neurological: Cranial nerves II-XII grossly intact, Neuro grossly intact, Motor Exam 5/5 strength throughout Psych/Mental Status: Normal Affect, Appropriate, Alert and oriented to time, place, person, mood and affect Laboratory Results 05/24/20 05:15: WBC 8.2, RBC 5.65 H, Hgb 15.9 H, Hct 50.4 H, MCV 89.2, MCH 28.1, MCHC 31.5 L, RDW Std Deviation 47.4 H, RDW Coeff of Rema 14.5, Plt Count 142 L, MPV 10.5, Immature Gran % (Auto) 1.600 H, Neut % (Auto) 66.8, Lymph % (Auto) 19.4, Johnston % (Auto) 10.2 H, Eos % (Auto) 1.5, Baso % (Auto) 0.5, Absolute Neuts (auto) 5.5, Absolute Lymphs (auto) 1.58, Nucleated RBC % 0 05/24/20 05:15: Sodium 138, Potassium 4.3, Chloride 103, Carbon Dioxide 30.0, Anion Gap 5, BUN 32 H, Creatinine 1.26 H, Estim Creat Clear Calc 34.11, Est GFR (MDRD) Af Amer 52 L, Est GFR (MDRD) Non-Af 43 L, BUN/Creatinine Ratio 25.4 H, Glucose 196 H, Calcium 9.3 05/24/20 06:49: Urine Color Yellow, Urine Clarity Cloudy, Urine pH 5.0, Ur Specific Farnam 1.015, Urine Protein 15 H, Urine Glucose (UA) Normal, Urine Ketones Negative, Urine Occult Blood 10 H, Urine Nitrite Positive H, Urine Bilirubin Negative, Urine Urobilinogen Normal, Ur Leukocyte Esterase 500 H, Urine RBC 0 SEEN, Urine WBC >100 SEEN, Ur Squamous Epith Cells 0-5 SEEN, Urine Bacteria 1+, Urine Mucus 0 SEEN Diagnostic Data Chest X-Ray 05/24/20 05:03 IMPRESSION: 1. No radiographic evidence of acute cardiopulmonary disease. 2. Osteoporosis with old compression fracture of the thoracic vertebral body. Electronically Signed: Nancy Stone MD at 6:25 EDT , Service support , Lumbar Spine X-Ray 05/24/20 05:04 IMPRESSION: 1. Osteoporosis. 2. 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 Electronically Signed: Nancy Stone MD at 6:21 EDT , Service support , Ankle X-Ray 05/24/20 05:05 IMPRESSION: 1. Moderately severe soft tissue swelling. 2. Osteoporosis. 3. No obvious acute fracture or dislocation. Electronically Signed: Nancy Stone MD at 6:08 EDT , Service support , Pelvis X-Ray 05/24/20 05:05 IMPRESSION: 1. Metallic foreign body is visible in the right pelvis. 2. Osteoporosis. 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 use of anticoagulant (Acute) Urinary tract infection (Acute) Nondisplaced fracture of medial malleolus of right tibia, initial encounter for closed fracture (Acute) Elevated serum creatinine (Acute) Paroxysmal atrial fibrillation (Acute) Blister of right heel (Acute) Acute gastroenteritis (Resolved) Chest pain (Resolved) Dehydration (Resolved) Dyspnea, unspecified (Resolved) Elevated lactic acid level (Resolved) Fall (Resolved) Fatigue (Resolved) Metabolic encephalopathy (Resolved) Palpitations (Resolved) UTI (urinary tract infection) (Resolved) 85 y/o admitted with a complaint of mechanical fall and found to have UTI #Debility due to mechanical fall * Admit to [facility]. * X-ray of the right ankle showed moderately severe soft tissue swelling and osteoporosis but no obvious acute fracture or dislocation. Right leg placed in a splint by ED. IV morphine, p.o. oxycodone and p.o. Tylenol for pain. * PT OT consult. * Fall precautions. To follow-up with orthopedic surgeon on outpatient basis. * #UTI: UA positive for bacteria. Will get urine cultures and blood cultures. Started on IV ceftriaxone. #Type 2 diabetes mellitus: On Tradjenta. Insulin sliding scale. Checks AC at bedtime. * * #History of A. fib: Hold Eliquis on account of mechanical fall. Continue digoxin metoprolol. #GERD: On PPI #History of gout: On Uloric. #hypertension: Metoprolol. #History of DVT: On Eliquis. This is held due to her having mechanical fall. Will consider resuming tomorrow. DVT prophylaxis: Lovenox CODE STATUS: Full code * Patient counseled extensively about different types of CODE STATUS including full code, DNR CCA and DNR CCA. Patient elects to be full code. * Total [id number] time 18 minutes. Inpatient E&M: 38148 Init Hosp L3 Procedures: 47835 Advncd Care Plan 30 Min
[2020-05-24] MEDS: levoFLOXacin IV 750 MG/150 ML BAG 100 MG IV (07:40)
--- NOTE | 2020-05-24 07:58 | ED.RN ---
attempted to call son. left message to return call for updates
[2020-05-24] MEDS: 0.9% Normal Saline 1,000 ML 125 ML IV ×2 (09:54→18:29)
[2020-05-24] MEDS: Metoprolol Tartrate 25 MG Tablet PO ×2 (10:46→22:00)
[2020-05-24] MEDS: oxyCODONE 5 MG Tablet PO (10:46)
[2020-05-24] MEDS: Menthol/Lanolin/Calamine/Znox 113 GM Tube 1 APPLIC TOPICAL ×2 (10:46→22:00)
[2020-05-24] MEDS: Ascorbic Acid 500 MG Tablet PO (10:47)
[2020-05-24] MEDS: Multivitamins,Ther W-Minerals Tablet 1 TABLET PO (10:47)
[2020-05-24] MEDS: Pantoprazole Sodium 40 MG Tablet PO (10:47)
[2020-05-24] MEDS: Methenamine Hippurate 1 GM Tablet PO ×2 (10:47→22:00)
[2020-05-24] MEDS: Escitalopram Oxalate 10 MG Tablet PO (10:47)
[2020-05-24 11:41] LABS: Bedside Glucose 206 mg/dL (70-110)
[2020-05-24] MEDS: Digoxin 125 MCG Tablet PO (11:44)
[2020-05-24] MEDS: Mirtazapine 15 MG Tablet PO (22:00)
[2020-05-24] MEDS: MELATONIN 3 MG TABLET 6 MG PO (22:00)
--- NOTE | 2020-05-24 22:50 | RAD_ITS ---
STUDY: X-RAY CHEST REASON FOR EXAM: Female, 85 years old. SOB TECHNIQUE: PA and lateral views of the chest. COMPARISON: 5:38 AM. FINDINGS: The lungs are clear and expanded. There is no demonstrated pleural abnormality. Normal size heart. Pacemaker on the left. Normal mediastinum and becky. Normal visualized pulmonary arteries. Normal visualized aortic arch and descending thoracic aorta. Severe thoracic kyphosis with thoracic compression fracture. RAD/Chest PA and Lateral IMPRESSION: No acute findings. Electronically Signed: Gypsy Oneill MD at 23:24 EDT Tel , Service support ,
[2020-05-25] VITALS (18 sets, daily range): BP systolic 101–126; BP diastolic 57–72; PULSE 69–73; RESP 12–18; TEMP 36.3–36.7; O2SAT 92–96
[2020-05-25] MEDS: Furosemide 20 MG/2 ML VIAL IV (01:00)
[2020-05-25] MEDS: 0.9% Saline Lock 10 ML Syringe IV ×3 (01:00→17:14)
[2020-05-25] MEDS: Nystatin Powder 15gm Bottle 1 APPLIC TOPICAL ×3 (05:25→22:43)
[2020-05-25 06:40] LABS: Absolute Lymphocyte Count 1.08 X10^3/uL (0.83-4.51); Absolute Neutrophil Count 6.4 X10^3/uL (2.0-7.7); Basophil# 0.01 X10^3/uL; Basophil% 0.1 % (0-1); Eosinophil# 0.02 X10^3/uL; Eosinophils% 0.2 % (0-5); Hematocrit 44.5 % (37-47); Hemoglobin 14.2 g/dL (12.0-15.0); Lymphocyte # 1.08 X10^3/ul (4.0); Lymphocyte % 12.2 % (19-41); Mean Corp Hgb Conc 31.9 g/dL (32-36); Mean Corpuscular Hgb 28.4 pg (27.0-32.0); Mean Platelet Vol. 10.9 fl (6.2-12.0); Monocyte# 1.28 X10^3/uL; Monocyte% 14.5 % (0-10); NRBC Flagged by Analyzer 0 % (0-5); Neutrophil # 6.41 X10^3/uL (2.7-7.7); Neutrophil % 72.5 % (47-70); Platelet Count 110 K/mm3 (150-450); RBC Distribution Width CV 14.7 % (11.6-14.6); RBC Distribution Width SD 47.8 fl (35.1-43.9); White Blood Count 8.8 K/mm3 (4.4-11.0)
[2020-05-25 06:58] LABS: Anion Gap 4 (5-15); BUN 37 mg/dL (7-18); BUN/Creat Ratio 34.9 RATIO (10-20); Calcium,Total 8.8 mg/dL (8.5-10.1); Chloride 106 mmol/L (98-107); Creatinine, Serum 1.06 mg/dL (0.55-1.02); EST Glomerular Filtration Rate 52 mL/min (>60); Est Glom Filt Rate - Afr Amer 63 mL/min (>60); Estimated Creatinine Clearance 40.55 ml/min; Glucose 146 mg/dL (74-106); Potassium 4.3 mmol/L (3.5-5.1); Sodium Level 137 mmol/L (136-145)
[2020-05-25] MEDS: Multivitamins,Ther W-Minerals Tablet 1 TABLET PO (08:20)
[2020-05-25] MEDS: Menthol/Lanolin/Calamine/Znox 113 GM Tube 1 APPLIC TOPICAL ×2 (08:20→22:44)
[2020-05-25] MEDS: LINAGLIPTIN 5 MG TABLET PO (08:21)
[2020-05-25] MEDS: Febuxostat 40 MG TABLET 80 MG PO (08:21)
[2020-05-25] MEDS: Methenamine Hippurate 1 GM Tablet PO ×2 (08:21→22:43)
[2020-05-25] MEDS: Escitalopram Oxalate 10 MG Tablet PO (08:21)
[2020-05-25] MEDS: Ascorbic Acid 500 MG Tablet PO (08:21)
[2020-05-25] MEDS: Pantoprazole Sodium 40 MG Tablet PO (08:21)
[2020-05-25] MEDS: Metoprolol Tartrate 25 MG Tablet PO ×2 (08:22→22:43)
[2020-05-25] MEDS: Digoxin 125 MCG Tablet PO (08:24)
--- NOTE | 2020-05-25 09:33 | CASEMGMT ---
Social Work Assessment Referral Date: 05/25/2020 Date of Assessment: 05/25/2020 Reason for consult: TCU placement (Per Handoff communication) Informant: RN Personal Status: SW met with pt to complete initial assessment and discuss discharge planning. Pt is alert and orientated x3. Living Arrangements: Pt states she lives alone in a one story home. Pt states she has a ramp to enter. Pt states her son and his family live behind her. Pt's son is a retired EMT. PCP: Dr. Fajardo Pharmacy: [place] ALDs: Pt states she is able to bath herself and cook. Pt states she has aide services that are coming in M,W,F for cleaning. Pt states the aides are through [facility]. Pt states she doesn't drive, states her son is able to provide transportation. DME: Pt states she has cane and walker, doesn't normally wear Oxygen at home. Substance Abuse Hx: Pt denied Mental Health Hx: Pt states little bit of depression after my son . Pt states he about two years ago. Pt states she had two sons and now only has the one. SW offered support to pt. Pt states she is not on any medications. Pt states she never went to counseling or grief counseling. SW offered counseling services now to pt and pt refused. Pt denied any history of suicidal thoughts/plans/ideations. Pt denied any current suicidal thoughts/plans/ideations. HHC: Pt is currently active with [facility] SNF: Pt states [facility] before SW spoke with pt about discharge planning. Patient was provided a list of SNF providers including quality and resource use data and consistent with the patient?s preferred geographic region, medical needs, and insurance network. Pt's preferred provide is [facility] TCU. PA offered to call pt's son Richard to update, pt refused, states he will be in later today. PA placed a call to Keri with TCU and provided referral. Keri to submit for pre-cert. Plan: TCU pending pre-cert Karma Ortez ACTUARIAL CONSULTANT, JAVA PROGRAMMER ANALYST
--- NOTE | 2020-05-25 10:10 | CASEMGMT ---
HARMAN BRO NOTE: Call placed to Wendy @ [facility]. She was made aware tentative plan @ D/C is TCU. Luis CALVO RN, CM
[2020-05-25] MEDS: APIXABAN 5 MG TABLET PO ×2 (10:22→17:14)
[2020-05-25 10:39] LABS: BNP,B-Type NATRIURETIC PEPTIDE 799.7 pg/mL (0-100)
--- NOTE | 2020-05-25 12:43 | ECHOD_ITS ---
Reason For Study: Heart Failure Procedure This was a 2D Doppler, Color Flow transthoracic echocardiogram. Bubble Study performed. Technically difficult study, patient laying supine due to pain from recent fall. The study was technically difficult. Exam performed portable in patient room. Left Ventricle Normal LV size. Left ventricular systolic function is normal. The estimated ejection fraction is 60 %. Septal motion consistent with IVCD. Unable to assess diastolic dysfunction. No regional wall motion abnormalities noted. Right Ventricle Mildly dilated right ventricle. ICD or pacer leads identified within the right ventricle. Mild global right ventricular systolic dysfunction. Atria Normal left atrium. The right atrium is mildly enlarged. ICD or pacer leads identified within the right atrium. Aneurysmal atrial septum. Agitated saline contrast study considered faintly positive for a right to left interatrial shunt compatible with a small PFO versus ASD. Mitral Valve There is mild to moderate mitral annular calcification. Extension of the mitral annular calcification on the base of the posterior mitral valve leaflet. Trivial mitral valve insufficiency. Tricuspid Valve Mild diffuse thickening of the tricuspid valve. Moderate (2+) tricuspid valve insufficiency. Right ventricular systolic pressure estimated to be 72 mmHg. Severe pulmonary hypertension. Aortic Valve Trisinus/trileaflet aortic valve. Mild diffuse aortic valve thickening. Pulmonic Valve The pulmonic valve is not well visualized. Great Vessels The aortic root is not well visualized. Pericardium/Pleural No pericardial effusion. Medication Performed a rapid injection of agitated mix of 9 cc saline and 1cc air to assess for atrial septal defect. MMode/2D Measurements & Calculations LVIDd: 2.9 cm IVSd: 1.2 cm LA dimension: 3.5 cm LVIDs: 1.9 cm LVPWd: 1.1 cm RVDd: 4.7 cm FS: 36.2 % LAV(MOD-bp): 24.9 ml LA A4 area: 9.8 cm2 RA A4 area: 17.9 cm2 LAV(MOD-bp) Indexed: 13.2 ml/m2 LAV(MOD-sp2): 31.4 ml LAV(MOD-sp4): 17.9 ml Doppler Measurements & Calculations Lat Peak E' Van: 6.5 cm/sec Med Peak E' Van: 4.5 cm/sec Ao V2 max: 96.6 cm/sec Ao max P.7 mmHg LV V1 max: 93.8 cm/sec PA V2 max: 74.2 cm/sec TR max van: 415.0 cm/sec LV V1 max P.5 mmHg TR max P.9 mmHg ECHO/Echo Complete Interpretation Summary The study was technically difficult. Left ventricular systolic function is normal. The estimated ejection fraction is 60 %. Septal motion consistent with IVCD. Mildly dilated right ventricle. Mild global right ventricular systolic dysfunction. The right atrium is mildly enlarged. Aneurysmal atrial septum. There is mild to moderate mitral annular calcification. Extension of the mitral annular calcification on the base of the posterior mitr al valve leaflet. Trivial mitral valve insufficiency. Moderate (2+) tricuspid valve insufficiency. Mild diffuse aortic valve thickening. Right ventricular systolic pressure estimated to be 72 mmHg. Severe pulmonary hypertension. Unable to assess diastolic dysfunction. Agitated saline contrast study considered faintly positive for a right to left interatrial shunt compatible with a small PFO versus ASD. Ordering Physician: Marianne Pena Referring Physician: Saroj Fajardo Performed By: Denny Nayak RCS
--- NOTE | 2020-05-25 13:05 | PCM.PN.HOSP ---
Patient Problems: Active and Suspected Problems (Last Reviewed 12/01/19 @ 11:02 by Altagracia Kinsey PA, PA) History of pulmonary embolus (PE) (Acute) History of DVT (deep vein thrombosis) (Acute) senior living current use of anticoagulant (Acute) Urinary tract infection (Acute) Nondisplaced fracture of medial malleolus of right tibia, initial encounter for closed fracture (Acute) Elevated serum creatinine (Acute) Paroxysmal atrial fibrillation (Acute) Subjective: Patient seen and examined. She has no complaints. She was noted to be more short of breath, and required oxygen. She was up to 5L of oxygen this morning. She denied coughing, chest pain, nausea or vomiting or diarrhea. Review of systems is otherwise negative. Vitals/I&O's: Vital Signs Temp Pulse Resp BP Pulse Ox 97.8 F 73 16 101/57 L 92 05/25/20 08:40 05/25/20 12:32 05/25/20 08:40 05/25/20 08:40 05/25/20 09:58 Oxygen Flow Rate (L/min) 4 Oxygen Delivery Method Nasal Cannula Weight: 161 lb 13.109 oz Body Mass Index (BMI) 23.8 Finger Stick Blood Glucose 276 Intake and Output for Last 24 Hours 05/23/20 05/24/20 05/25/20 23:59 23:59 23:59 Intake Total 2837.5 / 2837.5 440 / 440 Output Total 300 / 300 Balance 2537.5 / 2537.5 440 / 440 General: Alert, Oriented x3, Cooperative HEENT: Atraumatic, PERRLA, EOMI, Normocephalic Oral: Dry Mucosa Neck: Supple, No JVD, Negative Carotid Bruits Lungs: Clear to auscultation, Normal air movement Cardiovascular: Regular rate, No murmurs Abdomen: Bowel Sounds Present, Soft, Non Tender Extremities: No edema, Capillary Refill Less than 3 Seconds Skin: No rashes, No breakdown Musculoskeletal: - - RLE in a soft splint Lymphatic: No Cervical, Supraclavicular, or Inguinal Adenopathy Neurological: Cranial nerves II-XII grossly intact, Neuro grossly intact, Motor Exam 5/5 strength throughout Psych/Mental Status: Normal Affect, Appropriate, Alert and oriented to time, place, person, mood and affect Microbiology Past 72 Hours 05/25/20 10:20 Mucosa - Nose SARS-CoV-2 Antigen (Rapid) - Final 05/24/20 06:49 Urine, Clean Catch Urine Culture - Preliminary Culture exhibits no growth. Laboratory Results 05/25/20 06:26: WBC 8.8, RBC 5.00, Hgb 14.2, Hct 44.5, MCV 89.0, MCH 28.4, MCHC 31.9 L, RDW Std Deviation 47.8 H, RDW Coeff of Rema 14.7 H, Plt Count 110 L, MPV 10.9, Immature Gran % (Auto) 0.500, Neut % (Auto) 72.5 H, Lymph % (Auto) 12.2 L, [place] % (Auto) 14.5 H, Eos % (Auto) 0.2, Baso % (Auto) 0.1, Absolute Neuts (auto) 6.4, Absolute Lymphs (auto) 1.08, Nucleated RBC % 0 05/25/20 06:26: Sodium 137, Potassium 4.3, Chloride 106, Carbon Dioxide 27.0, Anion Gap 4 L, BUN 37 H, Creatinine 1.06 H, Estim Creat Clear Calc 40.55, Est GFR (MDRD) Af Amer 63, Est GFR (MDRD) Non-Af 52 L, BUN/Creatinine Ratio 34.9 H, Glucose 146 H, Calcium 8.8 05/25/20 06:26: B-Natriuretic Peptide 799.7 H Current Medications Acetaminophen (Acetaminophen 500 Mg Tablet) 1,000 mg PO Q6H PRN PRN PRN Reason: Pain Score 1-3 Acetaminophen (Acetaminophen 325 Mg Tablet) 650 mg PO Q6H PRN PRN PRN Reason: Temp > 100.7 F Apixaban (Apixaban 5 Mg Tablet) 5 mg PO BID@0800,1700 [facility] Last Admin: 05/25/20 10:22 Dose: 5 mg Documented by: Ascorbic Acid (Ascorbic Acid 500 Mg Tablet) 500 mg PO DAILY [facility] Last Admin: 05/25/20 08:21 Dose: 500 mg Documented by: Calamine/Phenol (Menthol/Lanolin/Calamine/Znox 113 Gm Tube) 1 applic TOPICAL BID [facility]; Protocol Last Admin: 05/25/20 08:20 Dose: 1 applic Documented by: Digoxin (Digoxin 125 Mcg Tablet) 125 mcg PO DAILY [facility] Last Admin: 05/25/20 08:24 Dose: 125 mcg Documented by: Escitalopram Oxalate (Escitalopram Oxalate 10 Mg Tablet) 10 mg PO DAILY [facility] Last Admin: 05/25/20 08:21 Dose: 10 mg Documented by: Febuxostat (Febuxostat 40 Mg Tablet) 80 mg PO DAILY [facility] Last Admin: 05/25/20 08:21 Dose: 80 mg Documented by: Furosemide (Furosemide 40 Mg/4 Ml Vial) 40 mg IV BID@1000,1800 [facility] Levofloxacin (Levaquin Iv) 750 mg in 150 mls @ 100 mls/hr IV Q48H [facility] Linagliptin (Linagliptin 5 Mg Tablet) 5 mg PO DAILY [facility] Last Admin: 05/25/20 08:21 Dose: 5 mg Documented by: Melatonin (Melatonin 3 Mg Tablet) 6 mg PO QHS [facility] Last Admin: 05/24/20 22:00 Dose: 6 mg Documented by: Methenamine Hippurate (Methenamine Hippurate 1 Gm Tablet) 1 gm PO BID [facility] Last Admin: 05/25/20 08:21 Dose: 1 gm Documented by: Metoprolol Tartrate (Metoprolol Tartrate 25 Mg Tablet) 25 mg PO BID [facility] Last Admin: 05/25/20 08:22 Dose: 25 mg Documented by: Mirtazapine (Mirtazapine 15 Mg Tablet) 15 mg PO QHS [facility] Last Admin: 05/24/20 22:00 Dose: 15 mg Documented by: Morphine Sulfate (Morphine 4 Mg/Ml Syringe) 4 mg IV Q3H PRN PRN PRN Reason: Pain Score 6-10 Multivitamins/Minerals (Multivitamins,Ther W-Minerals Tablet) [facility] Last Admin: 05/25/20 08:20 Dose: 1 tablet Documented by: Nitroglycerin (Nitroglycerin (Inpatient Use) 0.4 Mg Tab.Subl) 0.4 mg SL Q5M PRN PRN Reason: CARDIAC/CHEST PAIN Nystatin (Nystatin Powder 15gm Bottle) 1 applic TOPICAL TID [facility]; Protocol Last Admin: 05/25/20 05:25 Dose: 1 applic Documented by: Ondansetron HCl (Ondansetron 4 Mg/2 Ml Vial) 4 mg IV Q8H PRN PRN PRN Reason: NAUSEA/VOMITING Oxycodone HCl (Oxycodone 5 Mg Tablet) 5 mg PO Q4H PRN PRN PRN Reason: Pain Score 4-5 Last Admin: 05/24/20 10:46 Dose: 5 mg Documented by: Pantoprazole Sodium (Pantoprazole Sodium 40 Mg Tablet) 40 mg PO DAILY [facility] Last Admin: 05/25/20 08:21 Dose: 40 mg Documented by: Sodium Chloride (0.9% Saline Lock 10 Ml Syringe) 10 - 40 ml IV UD PRN PRN Reason: SALINE FLUSH Last Admin: 05/25/20 01:00 Dose: 10 ml Documented by: STROKE Vital Signs/Narrative: Vital Signs Pulse Pulse Ox 05/25/20 12:32 73 05/25/20 09:58 92 Medical Necessity - Tobacco Use Smoking Status: Never smoker Assessment/Plan All Active Problems (Last Reviewed 12/01/19 @ 11:02 by Altagracia Kinsey PA, PA) History of pulmonary embolus (PE) (Acute) History of DVT (deep vein thrombosis) (Acute) 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) Urinary tract infection (Acute) Nondisplaced fracture of medial malleolus of right tibia, initial encounter for closed fracture (Acute) Elevated serum creatinine (Acute) Paroxysmal atrial fibrillation (Acute) Blister of right heel (Acute) Acute gastroenteritis (Resolved) Chest pain (Resolved) Dehydration (Resolved) Dyspnea, unspecified (Resolved) Elevated lactic acid level (Resolved) Fall (Resolved) Fatigue (Resolved) Metabolic encephalopathy (Resolved) Palpitations (Resolved) UTI (urinary tract infection) (Resolved) 85 y/o admitted with a complaint of mechanical fall and found to have UTI #Debility due to mechanical fall PT/OT on board. Fall precautions on IV morphine, PO oxycodone and PO tylenol for pain #Acute hypoxic respiratory failure due to acute heart failure of unknown EF requiring 5L of oxygen overnight. BNP checked today is 799 no echo on file. Will start on IV lasix 40mg bid. monitor intake and output. Fluid restriction to 1500cc daily will order 2D echo titrate oxygen to maintain sats >90% #Acute heart failure of unknown EF: as above. #UTI: UA positive for bacteria. urine cultures were negative. On IV levofloxacin. #Type 2 diabetes mellitus: On Tradjenta. Insulin sliding scale. Checks AC at bedtime. #History of A. fib: on digoxin and metoprolol. on eliquis. #GERD: On PPI #History of gout: On Uloric. #hypertension: Metoprolol. #History of DVT: eliquis resumed today DVT prophylaxis: Lovenox CODE STATUS: Full code Inpatient E&M: 79545 Subs Hosp L3
[2020-05-25] MEDS: oxyCODONE 5 MG Tablet PO (13:12)
[2020-05-25] MEDS: Furosemide 40 MG/4 ML Vial IV ×2 (13:13→17:14)
--- NOTE | 2020-05-25 13:25 | CASEMGMT ---
Social Work Note Pt's son Richard present at [facility]. SW in to speak with pt and Richard. SW updated pt and Richard that pt has been accepted to TCU pending pre-cert. Pt and Richard state understanding. Plan: TCU pending pre-cert Karma Ortez WANT AD CLERK, IP ATTORNEY
--- NOTE | 2020-05-25 14:07 | CASEMGMT ---
Addendum entered by Karma Ortez 05/25/20 15:51: SW updated pt on approval to SNF. Original Note: Social Work Note SW received call from Keri with TCU stating pt was approved. PA updated physician. Pt is not medically ready for discharge. PA spoke with Keri with TCU, pre-cert is good through the weekend. Pt can admit to TCU Thursday or Thursday if medically cleared. Green sheet on chart. Plan: TCU when medically ready Karma COLE, STIFF STRAW HAT WASHER
[2020-05-25] MEDS: MELATONIN 3 MG TABLET 6 MG PO (22:43)
[2020-05-25] MEDS: Mirtazapine 15 MG Tablet PO (22:43)
[2020-05-26] VITALS (19 sets, daily range): BP systolic 101–117; BP diastolic 56–70; PULSE 60–83; RESP 16–18; TEMP 36.1–37; O2SAT 87–95
[2020-05-26] MEDS: Acetaminophen 500 MG Tablet 1000 MG PO ×2 (02:35→21:47)
[2020-05-26] MEDS: Nystatin Powder 15gm Bottle 1 APPLIC TOPICAL ×3 (06:09→21:42)
[2020-05-26 07:15] LABS: Absolute Lymphocyte Count 1.32 X10^3/uL (0.83-4.51); Absolute Neutrophil Count 6.7 X10^3/uL (2.0-7.7); Basophil# 0.03 X10^3/uL; Basophil% 0.3 % (0-1); Eosinophil# 0.07 X10^3/uL; Eosinophils% 0.7 % (0-5); Hematocrit 45.4 % (37-47); Hemoglobin 14.2 g/dL (12.0-15.0); Lymphocyte # 1.32 X10^3/ul (4.0); Lymphocyte % 14.1 % (19-41); Mean Corp Hgb Conc 31.3 g/dL (32-36); Mean Corpuscular Hgb 28.2 pg (27.0-32.0); Mean Corpuscular Volume 90.3 fL (81-99); Mean Platelet Vol. 11.5 fl (6.2-12.0); Monocyte# 1.23 X10^3/uL; Monocyte% 13.1 % (0-10); NRBC Flagged by Analyzer 0 % (0-5); Neutrophil # 6.69 X10^3/uL (2.7-7.7); Neutrophil % 71.4 % (47-70); POSITIVE COUNT YES; Platelet Count 95 K/mm3 (150-450); RBC Distribution Width CV 14.6 % (11.6-14.6); RBC Distribution Width SD 48.3 fl (35.1-43.9); Red Blood Count 5.03 M/mm3 (4.2-5.4); White Blood Count 9.4 K/mm3 (4.4-11.0)
[2020-05-26 07:18] LABS: Differential Indicated SCAN CRITERIA MET
[2020-05-26 07:33] LABS: Anion Gap 4 (5-15); BUN 37 mg/dL (7-18); BUN/Creat Ratio 33.6 RATIO (10-20); Calcium,Total 8.8 mg/dL (8.5-10.1); Chloride 104 mmol/L (98-107); EST Glomerular Filtration Rate 50 mL/min (>60); Est Glom Filt Rate - Afr Amer 61 mL/min (>60); Estimated Creatinine Clearance 39.08 ml/min; Glucose 121 mg/dL (74-106); Potassium 3.6 mmol/L (3.5-5.1); Sodium Level 140 mmol/L (136-145)
[2020-05-26 07:51] LABS: Platelet Estimate MOD DEC (ADEQ)
[2020-05-26] MEDS: Escitalopram Oxalate 10 MG Tablet PO (09:12)
[2020-05-26] MEDS: 0.9% Saline Lock 10 ML Syringe IV ×4 (09:12→21:34)
[2020-05-26] MEDS: LINAGLIPTIN 5 MG TABLET PO (09:12)
[2020-05-26] MEDS: Ascorbic Acid 500 MG Tablet PO (09:12)
[2020-05-26] MEDS: Multivitamins,Ther W-Minerals Tablet 1 TABLET PO (09:12)
[2020-05-26] MEDS: APIXABAN 5 MG TABLET PO ×2 (09:12→16:34)
[2020-05-26] MEDS: levoFLOXacin IV 750 MG/150 ML BAG 100 MG IV (09:12)
[2020-05-26] MEDS: Furosemide 40 MG/4 ML Vial IV ×2 (09:13→16:41)
[2020-05-26] MEDS: Pantoprazole Sodium 40 MG Tablet PO (09:13)
[2020-05-26] MEDS: Metoprolol Tartrate 25 MG Tablet PO ×2 (09:13→21:39)
[2020-05-26] MEDS: Febuxostat 40 MG TABLET 80 MG PO (09:14)
[2020-05-26] MEDS: Menthol/Lanolin/Calamine/Znox 113 GM Tube 1 APPLIC TOPICAL ×2 (09:14→21:41)
[2020-05-26] MEDS: Digoxin 125 MCG Tablet PO (09:15)
[2020-05-26] MEDS: Methenamine Hippurate 1 GM Tablet PO ×2 (09:16→21:38)
--- NOTE | 2020-05-26 12:20 | PN_ITS ---
Patient Problems: Active and Suspected Problems (Last Reviewed 12/01/19 @ 11:02 by Altagracia Kinsey PA, PA) History of pulmonary embolus (PE) (Acute) History of DVT (deep vein thrombosis) (Acute) halfway current use of anticoagulant (Acute) Urinary tract infection (Acute) Nondisplaced fracture of medial malleolus of right tibia, initial encounter for closed fracture (Acute) Elevated serum creatinine (Acute) Paroxysmal atrial fibrillation (Acute) Subjective: Patient seen and examined. She had no complaints. She remains short of breath, on 4L of oxygen. She doesnt usually wear oxygen at home. She has otherwise remained hemodynamically stable. Vitals/I&O's: Vital Signs Temp Pulse Resp BP Pulse Ox 97.0 F L 77 16 115/62 95 05/26/20 08:47 05/26/20 09:15 05/26/20 08:47 05/26/20 08:47 05/26/20 08:47 Oxygen Flow Rate (L/min) 4 Oxygen Delivery Method Nasal Cannula Weight: 161 lb 13.109 oz Body Mass Index (BMI) 23.8 Finger Stick Blood Glucose 276 Intake and Output for Last 24 Hours 05/24/20 05/25/20 05/26/20 23:59 23:59 23:59 Intake Total 2837.5 / 2837.5 830 / 830 390 / 390 Output Total 300 / 300 Balance 2537.5 / 2537.5 830 / 830 390 / 390 General: Alert, Oriented x3, Cooperative HEENT: Atraumatic, PERRLA, EOMI, Normocephalic Oral: Dry Mucosa Neck: Supple, No JVD, Negative Carotid Bruits Lungs: diminished breath sounds bibasally, fine crackles bibasally; on 4L of oxygen. Cardiovascular: Regular rate, No murmurs Abdomen: Bowel Sounds Present, Soft, Non Tender Extremities: No edema, Capillary Refill Less than 3 Seconds Skin: No rashes, No breakdown Musculoskeletal: - - RLE in a soft splint Lymphatic: No Cervical, Supraclavicular, or Inguinal Adenopathy Neurological: Cranial nerves II-XII grossly intact, Neuro grossly intact, Motor Exam 5/5 strength throughout Psych/Mental Status: Normal Affect, Appropriate, Alert and oriented to time, place, person, mood and affect Microbiology Past 72 Hours 05/24/20 09:38 Blood Culture (Wb) - Left Hand Blood Culture - Preliminary No growth in 48 hours. 05/24/20 09:32 Blood Culture (Wb) - Anticubital Left Blood Culture - Preliminary No growth in 48 hours. 05/24/20 06:49 Urine, Clean Catch Urine Culture - Final Mixed Gram Positive Organisms 05/25/20 10:20 Mucosa - Nose SARS-CoV-2 Antigen (Rapid) - Final Laboratory Results 05/26/20 06:36: WBC 9.4, RBC 5.03, Hgb 14.2, Hct 45.4, MCV 90.3, MCH 28.2, MCHC 31.3 L, RDW Std Deviation 48.3 H, RDW Coeff of Rema 14.6, Plt Count 95 L, MPV 11.5, Immature Gran % (Auto) 0.400, Neut % (Auto) 71.4 H, Lymph % (Auto) 14.1 L, [place] % (Auto) 13.1 H, Eos % (Auto) 0.7, Baso % (Auto) 0.3, Absolute Neuts (auto) 6.7, Absolute Lymphs (auto) 1.32, Nucleated RBC % 0, Platelet Estimate MOD DEC 05/26/20 06:36: Sodium 140, Potassium 3.6, Chloride 104, Carbon Dioxide 32.0, Anion Gap 4 L, BUN 37 H, Creatinine 1.10 H, Estim Creat Clear Calc 39.08, Est GFR (MDRD) Af Amer 61, Est GFR (MDRD) Non-Af 50 L, BUN/Creatinine Ratio 33.6 H, Glucose 121 H, Calcium 8.8 Current Medications Acetaminophen (Acetaminophen 500 Mg Tablet) 1,000 mg PO Q6H PRN PRN PRN Reason: Pain Score 1-3 Last Admin: 05/26/20 02:35 Dose: 1,000 mg Documented by: Acetaminophen (Acetaminophen 325 Mg Tablet) 650 mg PO Q6H PRN PRN PRN Reason: Temp > 100.7 F Apixaban (Apixaban 5 Mg Tablet) 5 mg PO BID@0800,1700 [facility] Last Admin: 05/26/20 09:12 Dose: 5 mg Documented by: Ascorbic Acid (Ascorbic Acid 500 Mg Tablet) 500 mg PO DAILY [facility] Last Admin: 05/26/20 09:12 Dose: 500 mg Documented by: Calamine/Phenol (Menthol/Lanolin/Calamine/Znox 113 Gm Tube) 1 applic TOPICAL BID [facility]; Protocol Last Admin: 05/26/20 09:14 Dose: 1 applic Documented by: Digoxin (Digoxin 125 Mcg Tablet) 125 mcg PO DAILY [facility] Last Admin: 05/26/20 09:15 Dose: 125 mcg Documented by: Escitalopram Oxalate (Escitalopram Oxalate 10 Mg Tablet) 10 mg PO DAILY [facility] Last Admin: 05/26/20 09:12 Dose: 10 mg Documented by: Febuxostat (Febuxostat 40 Mg Tablet) 80 mg PO DAILY [facility] Last Admin: 05/26/20 09:14 Dose: 80 mg Documented by: Furosemide (Furosemide 40 Mg/4 Ml Vial) 40 mg IV BID@1000,1800 [facility] Last Admin: 05/26/20 09:13 Dose: 40 mg Documented by: Levofloxacin (Levaquin Iv) 750 mg in 150 mls @ 100 mls/hr IV Q48H [facility] Last Infusion: 05/26/20 10:45 Dose: Infused Documented by: Linagliptin (Linagliptin 5 Mg Tablet) 5 mg PO DAILY [facility] Last Admin: 05/26/20 09:12 Dose: 5 mg Documented by: Melatonin (Melatonin 3 Mg Tablet) 6 mg PO QHS [facility] Last Admin: 05/25/20 22:43 Dose: 6 mg Documented by: Methenamine Hippurate (Methenamine Hippurate 1 Gm Tablet) 1 gm PO BID [facility] Last Admin: 05/26/20 09:16 Dose: 1 gm Documented by: Metoprolol Tartrate (Metoprolol Tartrate 25 Mg Tablet) 25 mg PO BID [facility] Last Admin: 05/26/20 09:13 Dose: 25 mg Documented by: Mirtazapine (Mirtazapine 15 Mg Tablet) 15 mg PO QHS [facility] Last Admin: 05/25/20 22:43 Dose: 15 mg Documented by: Morphine Sulfate (Morphine 4 Mg/Ml Syringe) 4 mg IV Q3H PRN PRN PRN Reason: Pain Score 6-10 Multivitamins/Minerals (Multivitamins,Ther W-Minerals Tablet) [facility] Last Admin: 05/26/20 09:12 Dose: 1 tablet Documented by: Nitroglycerin (Nitroglycerin (Inpatient Use) 0.4 Mg Tab.Subl) 0.4 mg SL Q5M PRN PRN Reason: CARDIAC/CHEST PAIN Nystatin (Nystatin Powder 15gm Bottle) 1 applic TOPICAL TID [facility]; Protocol Last Admin: 05/26/20 06:09 Dose: 1 applic Documented by: Ondansetron HCl (Ondansetron 4 Mg/2 Ml Vial) 4 mg IV Q8H PRN PRN PRN Reason: NAUSEA/VOMITING Oxycodone HCl (Oxycodone 5 Mg Tablet) 5 mg PO Q4H PRN PRN PRN Reason: Pain Score 4-5 Last Admin: 05/25/20 13:12 Dose: 5 mg Documented by: Pantoprazole Sodium (Pantoprazole Sodium 40 Mg Tablet) 40 mg PO DAILY [facility] Last Admin: 05/26/20 09:13 Dose: 40 mg Documented by: Sodium Chloride (0.9% Saline Lock 10 Ml Syringe) 10 - 40 ml IV UD PRN PRN Reason: SALINE FLUSH Last Admin: 05/26/20 09:12 Dose: 20 ml Documented by: STROKE Vital Signs/Narrative: Vital Signs Temp Pulse Resp BP Pulse Ox 05/26/20 09:15 77 05/26/20 09:13 77 05/26/20 08:47 97.0 F L 74 16 115/62 95 Medical Necessity - Tobacco Use Smoking Status: Never smoker Assessment/Plan All Active Problems (Last Reviewed 12/01/19 @ 11:02 by Altagracia Kinsey PA, PA) History of pulmonary embolus (PE) (Acute) History of DVT (deep vein thrombosis) (Acute) 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) Urinary tract infection (Acute) Nondisplaced fracture of medial malleolus of right tibia, initial encounter for closed fracture (Acute) Elevated serum creatinine (Acute) Paroxysmal atrial fibrillation (Acute) Blister of right heel (Acute) Acute gastroenteritis (Resolved) Chest pain (Resolved) Dehydration (Resolved) Dyspnea, unspecified (Resolved) Elevated lactic acid level (Resolved) Fall (Resolved) Fatigue (Resolved) Metabolic encephalopathy (Resolved) Palpitations (Resolved) UTI (urinary tract infection) (Resolved) 85 y/o admitted with a complaint of mechanical fall and found to have UTI #Debility due to mechanical fall * PT/OT on board. Fall precautions * on IV morphine, PO oxycodone and PO tylenol for pain * #Acute hypoxic respiratory failure due to acute heart failure with preserved EF * now on 4L of oxygen * 2D echo showed EF of 60%, with mildly dilated RV, and normal LV systolic function with aneurysmal atrial septum. RVSP of 72mmhg. Bubble study positive for right to left interatrial shunt compatible with small PFO vs ASD * on IV lasix 40mg bid * monitor intake and output. Fluid restriction to 1500cc daily * titrate oxygen to maintain sats >90% * * #Acute heart failure with preserved EF: as above. #Severe pulmonary hypertension * RSVP is 72mmhg as above. * Will consult pulmonology as severe pulmonary hypertension may be contributing #UTI: UA positive for bacteria. urine cultures growing mixed gram positive organisms. Blood cultures negative. On IV levofloxacin. #Type 2 diabetes mellitus: On Tradjenta. Insulin sliding scale. Checks AC at bedtime. #History of A. fib: on digoxin and metoprolol. on eliquis. #GERD: On PPI #History of gout: On Uloric. #hypertension: Metoprolol. #History of DVT: on eliquis DVT prophylaxis: Lovenox CODE STATUS: Full code Inpatient E&M: 52498 Subs Hosp L2
[2020-05-26] MEDS: Ondansetron 4 MG/2 ML Vial IV (12:46)
[2020-05-26] MEDS: Acetaminophen 325 MG Tablet 650 MG PO (12:46)
[2020-05-26] MEDS: MELATONIN 3 MG TABLET 6 MG PO (21:38)
[2020-05-26] MEDS: Mirtazapine 15 MG Tablet PO (21:39)
[2020-05-27] VITALS (16 sets, daily range): BP systolic 101–138; BP diastolic 59–73; PULSE 72–90; RESP 18–20; TEMP 36.3–36.9; O2SAT 91–95
[2020-05-27 06:26] LABS: Absolute Lymphocyte Count 1.15 X10^3/uL (0.83-4.51); Basophil# 0.01 X10^3/uL; Basophil% 0.1 % (0-1); Eosinophil# 0.08 X10^3/uL; Eosinophils% 0.8 % (0-5); Hematocrit 45.9 % (37-47); Hemoglobin 14.6 g/dL (12.0-15.0); Lymphocyte # 1.15 X10^3/ul (4.0); Lymphocyte % 12.1 % (19-41); Mean Corp Hgb Conc 31.8 g/dL (32-36); Mean Corpuscular Hgb 28.2 pg (27.0-32.0); Mean Corpuscular Volume 88.8 fL (81-99); Mean Platelet Vol. 11.3 fl (6.2-12.0); Monocyte# 1.21 X10^3/uL; Monocyte% 12.7 % (0-10); NRBC Flagged by Analyzer 0 % (0-5); Neutrophil # 6.99 X10^3/uL (2.7-7.7); Neutrophil % 73.7 % (47-70); Platelet Count 106 K/mm3 (150-450); RBC Distribution Width CV 14.3 % (11.6-14.6); RBC Distribution Width SD 46.2 fl (35.1-43.9); Red Blood Count 5.17 M/mm3 (4.2-5.4); White Blood Count 9.5 K/mm3 (4.4-11.0)
[2020-05-27] MEDS: Nystatin Powder 15gm Bottle 1 APPLIC TOPICAL ×3 (06:40→22:06)
[2020-05-27 06:46] LABS: Anion Gap 3 (5-15); BUN 39 mg/dL (7-18); BUN/Creat Ratio 38.6 RATIO (10-20); Chloride 103 mmol/L (98-107); Creatinine, Serum 1.01 mg/dL (0.55-1.02); EST Glomerular Filtration Rate 55 mL/min (>60); Est Glom Filt Rate - Afr Amer 67 mL/min (>60); Estimated Creatinine Clearance 42.56 ml/min; Glucose 146 mg/dL (74-106); Potassium 3.4 mmol/L (3.5-5.1); Sodium Level 140 mmol/L (136-145)
--- NOTE | 2020-05-27 08:54 | CON.PCM_ITS ---
Reason for Consult Date of Consultation: 05/27/20 Reason for Consultation: Acute hypoxemic respiratory insufficiency, pulmonary hypertension History of Present Illness: The patient is an 85-year-old female, with a history as outlined below, who initially presented to the emergency department on May 24 after sustaining a mechanical fall. On work-up the patient was found to have a nondisplaced fracture of the medial malleolus. In addition, there was concern for a urinary tract infection, for which she was placed on antimicrobials. The patient reported to me that she was previously not on supplemental oxygen. She does report feeling very weak and debilitated. She has been followed by Dr. Babb in the past for what I assume is pulmonary hypertension. Nevertheless, I do not have any of his prior office documentation. The patient does report that the last time that she saw him, which was approximately 3 years ago, he wanted to place her on a medication which was cost prohibitive. The patient denies any known personal or family history of any autoimmune or vasculitides. She is a lifelong non-smoker, but does have a history of venous thrombosis, for which she is on Eliquis. On presentation to the emergency department, the patient was afebrile and hemodynamically stable. Laboratory evaluation revealed a normal white blood cell count. Chemistry profile revealed an elevated creatinine of 1.26. BNP was elevated to 800. Urine analysis was positive for nitrites, leukocyte esterase and 1+ urine bacteria. The patient was subsequently admitted to the hospital, where she has been maintained on IV diuretic therapy and antimicrobials. Surface echocardiogram completed on May 25 revealed an ejection fraction of 60%. Her RV was mildly dilated with mild global RV systolic dysfunction. Agitated saline contrast was positive for a right to left intra-atrial shunt. Right ventricular systolic pressure was estimated to be 72 mmHg. Past Medical History Past Medical History (Chronic Problems): Chronic Problems (Last Reviewed 12/01/19 @ 11:02 by Altagracia GARNER, PA) Essential hypertension (Chronic) Pressure ulcer of right foot, unstageable (Chronic) Delayed wound healing (Chronic) Malnutrition (Chronic) CKD (chronic kidney disease) stage 3, GFR 30-59 ml/min (Chronic) Sick sinus syndrome (Chronic) Cardiomyopathy, nonischemic (Chronic) HLD (hyperlipidemia) (Chronic) Hypothyroidism (Chronic) Hypokalemia (Chronic) Chronic diastolic (congestive) heart failure (Chronic) Iron deficiency anemia (Chronic) GERD (gastroesophageal reflux disease) (Chronic) Cardiac pacemaker in situ (Chronic) DM2 (diabetes mellitus, type 2) (Chronic) CHF (congestive heart failure) (Chronic) Pulmonary hypertension (Chronic) Medical History: Medical History (Last Reviewed 12/01/19 @ 11:02 by Altagracia Kinsey PA, PA) Paroxysmal atrial fibrillation (Acute) I48.0 Essential hypertension (Chronic) I10 Sick sinus syndrome (Chronic) I49.5 Cardiomyopathy, nonischemic (Chronic) I42.8 HLD (hyperlipidemia) (Chronic) E78.5 Hypothyroidism (Chronic) E03.9 Hypokalemia (Chronic) E87.6 Chronic diastolic (congestive) heart failure (Chronic) I50.32 Iron deficiency anemia (Chronic) D50.9 GERD (gastroesophageal reflux disease) (Chronic) K21.9 Cardiac pacemaker in situ (Chronic) Z95.0 DM2 (diabetes mellitus, type 2) (Chronic) E11.9 CHF (congestive heart failure) (Chronic) I50.9 Pulmonary hypertension (Chronic) I27.2 Acute kidney injury N17.9 Chronic diarrhea K52.9 Cystitis N30.90 Dementia F03.90 Depression F32.9 Encephalopathy G93.40 Gout M10.9 Postoperative anemia D64.9 Atrophic vaginitis N95.2 Depression F32.9 Gout M10.9 Acute deep vein thrombosis (DVT) of left lower extremity I82.402 Acute kidney injury N17.9 Debility R53.81 Diarrhea R19.7 Edema R60.9 Fracture of right femur S72.91XA Hypotension I95.9 Syncope and collapse R55 UTI (urinary tract infection) N39.0 Ulcer of right heel and midfoot, limited to breakdown of skin L97.411 Viral gastroenteritis A08.4 Acute kidney injury (Inactive) N17.9 Afib (Inactive) I48.91 Chronic diarrhea (Inactive) K52.9 Cystitis (Inactive) N30.90 no culture obtained DVT of axillary vein, acute left (Inactive) I82.A12 Dementia (Inactive) F03.90 Depression (Inactive) F32.9 Diarrhea (Inactive) R19.7 Dvt femoral (deep venous thrombosis) (Inactive) I82.419 left leg Encephalopathy (Inactive) G93.40 Fall (Inactive) W19.XXXA Gout (Inactive) M10.9 Muscle spasm (Inactive) M62.838 Pacemaker (Inactive) Z95.0 Postoperative anemia (Inactive) D64.9 Thrush (Inactive) B37.0 Allergies exenatide [From Byetta] Allergy (Verified 11/29/19 15:28) Unknown metformin Allergy (Verified 11/29/19 15:) Rash Penicillins [PCN] Allergy (Verified 11/29/19 15:) Unknown simvastatin [From Zocor] Adverse Reaction (Severe, Verified 11/29/19 15:) Myalgias prednisone Adverse Reaction (Unknown, Verified 11/29/19 15:) effects blood sugar amoxicillin [From Augmentin] Adverse Reaction (Verified 11/29/19 15:) Diarrhea clavulanic acid [From Augmentin] Adverse Reaction (Verified 11/29/19:) Diarrhea crestor Adverse Reaction (Intermediate, Uncoded 12/06/18 13:27) myalgia Home Medications: Ambulatory Orders Medication Instructions Recorded Apixaban [Eliquis] 5 mg PO BID 04/30/18 Ascorbic Acid [Vitamin C] 500 mg PO DAILY 08/18/18 Febuxostat [Uloric] 80 mg PO DAILY 08/18/18 Melatonin 6 mg PO QHS 08/18/18 Pantoprazole Sodium [Protonix] 40 mg PO DAILY 08/18/18 Digoxin 125 mcg PO DAILY 09/06/18 Metoprolol Tartrate [Lopressor 25 mg PO BID 09/06/18 (beta chanel)] Mirtazapine 15 mg PO QHS 09/06/18 Multivitamin with Minerals 1 tab PO DAILY 09/06/18 [Multiple Vitamin] Acetaminophen [Tylenol] 1,000 mg PO Q6H PRN PRN tab 09/30/18 sitagliptin 100 mg tablet 100 mg PO DAILY 11/29/19 Cranberry Conc/Ascorbic Acid 2 each PO BID 05/24/20 [Cranberry Plus Vitamin C Sftgl] Escitalopram Oxalate [Lexapro] 10 mg PO DAILY 05/24/20 Furosemide [Lasix] 20 mg PO 05/24/20 Methenamine Hippurate [Hiprex] 1 gm PO BID 05/24/20 Surgical History: Surgical History (Last Reviewed 12/06/18 @ 13:28 by Altagracia Menard) H/O: hysterectomy Z90.710 History of bilateral knee replacement Z96.653 History of cholecystectomy Z90.49 Presence of vena cava filter Z95.828 implantation pacemakr pacemaker generator change Surgical History: cholecystectomy, hysterectomy, pacemaker implantation, total knee arthroplasty - Bilateral., - - IVC filter, right hip fracture repair. Psychiatric History: Anxiety, Depression [employer] History: No pertinent [employer] history Lives: Alone Smoking Status: Never smoker Alcohol: None Drugs: None - *Family History Paternal Family History: Family History (Last Reviewed 12/06/18 @ 13:28 by Altagracia Menard) Father Myocardial infarction History Items: Heart Disease Maternal Family History: Family History (Last Reviewed 12/06/18 @ 13:28 by Altagracia Menard) Father Myocardial infarction History Items: - - No marked maternal family history including heart disease, diabetes or cancer. Review of Systems Constitutional: Reports: Anorexia, Weakness, Fatigue. Denies: Chills, Fever Eyes: Denies: Blurred vision, Double vision HEENT: Denies: Head Aches, Sinus Congestion, Sinus Drainage Cardiovascular: Denies: Chest Pain, Palpitations Respiratory: Reports: Shortness of Breath Gastrointestinal: Denies: Abdominal Pain, Nausea, Vomiting Genitourinary: Denies: Dysuria Musculoskeletal: Reports: Leg Pain Skin: Denies: Rash, Wounds Neurological: Denies: Numbness, Tingling, Focal weakness Psychiatric: Denies: Anxiety, Depression, Homicidal Ideations, Suicidal Ideations Hematologic/ Lymphatic: Reports: Hx of blood clot Patient Problems: Active and Suspected Problems (Last Reviewed 12/01/19 @ 11:02 by Altagracia GARNER, PA) History of pulmonary embolus (PE) (Acute) History of DVT (deep vein thrombosis) (Acute) USP current use of anticoagulant (Acute) Urinary tract infection (Acute) Nondisplaced fracture of medial malleolus of right tibia, initial encounter for closed fracture (Acute) Elevated serum creatinine (Acute) Paroxysmal atrial fibrillation (Acute) Objective: The patient's most recent lab work, culture data and imaging studies have all been personally reviewed. Rapid coronavirus antigen testing was negative. Blood and urine cultures are pending. - Physical Exam Vitals/I&O's: Vital Signs Temp Pulse Resp BP Pulse Ox 97.5 F L 72 18 101/59 L 91 05/27/20 04:40 05/27/20 04:40 05/27/20 04:40 04/11/21 04:40 05/27/20 08:05 Oxygen Flow Rate (L/min) 3 Oxygen Delivery Method Nasal Cannula Weight: 161 lb 13.109 oz Body Mass Index (BMI) 23.8 Finger Stick Blood Glucose 276 Intake and Output for Last 24 Hours 05/25/20 05/26/20 05/27/20 23:59 23:59 23:59 Intake Total 830 / 830 590 / 590 Output Total 500 / 500 200 / 200 Balance 830 / 830 90 / 90 -200 / -200 General: Alert, Cooperative, No apparent distress, - - Sitting in bedside recliner HEENT: Atraumatic, Normocephalic Oral: No Gingival or Mucosal Lesions/ Ulcerations, Dry Mucosa Neck: Supple, No Nodes, Trachea Midline Lungs: Diminished, Rales Cardiovascular: Regular rate, Regular Rhythm Abdomen: Bowel Sounds Present, Soft, Non Tender Extremities: No clubbing, No cyanosis, No edema Skin: No breakdown Musculoskeletal: - - Splint present on right lower extremity Lymphatic: No Cervical, Supraclavicular, or Inguinal Adenopathy Neurological: Cranial nerves II-XII grossly intact, Neuro grossly intact Psych/Mental Status: Flat Affect Labs (Last 48 Hours) 05/25/20 05/26/20 05/26/20 06:26 06:36 06:36 WBC 9.4 RBC 5.03 Hgb 14.2 Hct 45.4 MCV 90.3 MCH 28.2 MCHC 31.3 L RDW Std Deviation 48.3 H RDW Coeff of Rema 14.6 Plt Count 95 L MPV 11.5 Immature Gran % (Auto) 0.400 Neut % (Auto) 71.4 H Lymph % (Auto) 14.1 L Amelia % (Auto) 13.1 H Eos % (Auto) 0.7 Baso % (Auto) 0.3 Absolute Neuts (auto) 6.7 Absolute Lymphs (auto) 1.32 Nucleated RBC % 0 Platelet Estimate MOD DEC Sodium 140 Potassium 3.6 Chloride 104 Carbon Dioxide 32.0 Anion Gap 4 L BUN 37 H Creatinine 1.10 H Estim Creat Clear Calc 39.08 Est GFR (MDRD) Af Amer 61 Est GFR (MDRD) Non-Af 50 L BUN/Creatinine Ratio 33.6 H Glucose 121 H Calcium 8.8 B-Natriuretic Peptide 799.7 H 05/27/20 05/27/20 05:56 05:56 WBC 9.5 RBC 5.17 Hgb 14.6 Hct 45.9 MCV 88.8 MCH 28.2 MCHC 31.8 L RDW Std Deviation 46.2 H RDW Coeff of Rema 14.3 Plt Count 106 L MPV 11.3 Immature Gran % (Auto) 0.600 Neut % (Auto) 73.7 H Lymph % (Auto) 12.1 L Amelia % (Auto) 12.7 H Eos % (Auto) 0.8 Baso % (Auto) 0.1 Absolute Neuts (auto) 7.0 Absolute Lymphs (auto) 1.15 Nucleated RBC % 0 Platelet Estimate Sodium 140 Potassium 3.4 L Chloride 103 Carbon Dioxide 34.0 H Anion Gap 3 L BUN 39 H Creatinine 1.01 Estim Creat Clear Calc 42.56 Est GFR (MDRD) Af Amer 67 Est GFR (MDRD) Non-Af 55 L BUN/Creatinine Ratio 38.6 H Glucose 146 H Calcium 9.0 B-Natriuretic Peptide Microbiology 05/24/20 09:38 Blood Culture (Wb) - Left Hand Blood Culture - Preliminary No growth in 48 hours. 05/24/20 09:32 Blood Culture (Wb) - Anticubital Left Blood Culture - Preliminary No growth in 48 hours. 05/24/20 06:49 Urine, Clean Catch Urine Culture - Final Mixed Gram Positive Organisms 05/25/20 10:20 Mucosa - Nose SARS-CoV-2 Antigen (Rapid) - Final Clinical Impression(s) from Imaging Studies Chest X-Ray 05/24/20 05:03 IMPRESSION: 1. No radiographic evidence of acute cardiopulmonary disease. 2. Osteoporosis with old compression fracture of the thoracic vertebral body. Electronically Signed: Nancy Stone MD at 6:25 EDT , Service support , Lumbar Spine X-Ray 05/24/20 05:04 IMPRESSION: 1. Osteoporosis. 2. 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 Electronically Signed: Nancy Stone MD at 6:21 EDT , Service support , Ankle X-Ray 05/24/20 05:05 IMPRESSION: 1. Moderately severe soft tissue swelling. 2. Osteoporosis. 3. No obvious acute fracture or dislocation. Electronically Signed: Nancy Stone MD at 6:08 EDT , Service support , Pelvis X-Ray 05/24/20 05:05 IMPRESSION: 1. Metallic foreign body is visible in the right pelvis. 2. Osteoporosis. Electronically Signed: Nancy Stone MD at 6:16 EDT , Service support , Chest X-Ray 05/24/20 22:50 IMPRESSION: No acute findings. Electronically Signed: Gypsy Oneill MD at 23:24 EDT Tel , Service support , Echocardiogram 05/25/20 12:43 Interpretation Summary The study was technically difficult. Left ventricular systolic function is normal. The estimated ejection fraction is 60 %. Septal motion consistent with IVCD. Mildly dilated right ventricle. Mild global right ventricular systolic dysfunction. The right atrium is mildly enlarged. Aneurysmal atrial septum. There is mild to moderate mitral annular calcification. Extension of the mitral annular calcification on the base of the posterior mitral valve leaflet. Trivial mitral valve insufficiency. Moderate (2+) tricuspid valve insufficiency. Mild diffuse aortic valve thickening. Right ventricular systolic pressure estimated to be 72 mmHg. Severe pulmonary hypertension. Unable to assess diastolic dysfunction. Agitated saline contrast study considered faintly positive for a right to left interatrial shunt compatible with a small PFO versus ASD. Ordering Physician: Marianne Pena Referring Physician: Saroj Fajardo Performed By: Denny Nayak RCS Current Medications Acetaminophen (Acetaminophen 500 Mg Tablet) 1,000 mg PO Q6H PRN PRN PRN Reason: Pain Score 1-3 Last Admin: 05/26/20 21:47 Dose: 1,000 mg Documented by: Acetaminophen (Acetaminophen 325 Mg Tablet) 650 mg PO Q6H PRN PRN PRN Reason: Temp > 100.7 F Last Admin: 05/26/20 12:46 Dose: 650 mg Documented by: Apixaban (Apixaban 5 Mg Tablet) 5 mg PO BID@0800,1700 [facility] Last Admin: 05/26/20 16:34 Dose: 5 mg Documented by: Ascorbic Acid (Ascorbic Acid 500 Mg Tablet) 500 mg PO DAILY [facility] Last Admin: 05/26/20 09:12 Dose: 500 mg Documented by: Calamine/Phenol (Menthol/Lanolin/Calamine/Znox 113 Gm Tube) 1 applic TOPICAL BID [facility]; Protocol Last Admin: 05/26/20 21:41 Dose: 1 applic Documented by: Digoxin (Digoxin 125 Mcg Tablet) 125 mcg PO DAILY [facility] Last Admin: 05/26/20 09:15 Dose: 125 mcg Documented by: Escitalopram Oxalate (Escitalopram Oxalate 10 Mg Tablet) 10 mg PO DAILY [facility] Last Admin: 05/26/20 09:12 Dose: 10 mg Documented by: Febuxostat (Febuxostat 40 Mg Tablet) 80 mg PO DAILY [facility] Last Admin: 05/26/20 09:14 Dose: 80 mg Documented by: Furosemide (Furosemide 40 Mg/4 Ml Vial) 40 mg IV BID@1000,1800 [facility] Last Admin: 05/26/20 16:41 Dose: 40 mg Documented by: Levofloxacin (Levaquin Iv) 750 mg in 150 mls @ 100 mls/hr IV Q48H [facility] Last Infusion: 05/26/20 10:45 Dose: Infused Documented by: Linagliptin (Linagliptin 5 Mg Tablet) 5 mg PO DAILY [facility] Last Admin: 05/26/20 09:12 Dose: 5 mg Documented by: Melatonin (Melatonin 3 Mg Tablet) 6 mg PO QHS [facility] Last Admin: 05/26/20 21:38 Dose: 6 mg Documented by: Methenamine Hippurate (Methenamine Hippurate 1 Gm Tablet) 1 gm PO BID [facility] Last Admin: 05/26/20 21:38 Dose: 1 gm Documented by: Metoprolol Tartrate (Metoprolol Tartrate 25 Mg Tablet) 25 mg PO BID [facility] Last Admin: 05/26/20 21:39 Dose: 25 mg Documented by: Mirtazapine (Mirtazapine 15 Mg Tablet) 15 mg PO QHS [facility] Last Admin: 05/26/20 21:39 Dose: 15 mg Documented by: Morphine Sulfate (Morphine 4 Mg/Ml Syringe) 4 mg IV Q3H PRN PRN PRN Reason: Pain Score 6-10 Multivitamins/Minerals (Multivitamins,Ther W-Minerals Tablet) [facility] Last Admin: 05/26/20 09:12 Dose: 1 tablet Documented by: Nitroglycerin (Nitroglycerin (Inpatient Use) 0.4 Mg Tab.Subl) 0.4 mg SL Q5M PRN PRN Reason: CARDIAC/CHEST PAIN Nystatin (Nystatin Powder 15gm Bottle) 1 applic TOPICAL TID [facility]; Protocol Last Admin: 05/27/20 06:40 Dose: 1 applic Documented by: Ondansetron HCl (Ondansetron 4 Mg/2 Ml Vial) 4 mg IV Q8H PRN PRN PRN Reason: NAUSEA/VOMITING Last Admin: 05/26/20 12:46 Dose: 4 mg Documented by: Oxycodone HCl (Oxycodone 5 Mg Tablet) 5 mg PO Q4H PRN PRN PRN Reason: Pain Score 4-5 Last Admin: 05/25/20 13:12 Dose: 5 mg Documented by: Pantoprazole Sodium (Pantoprazole Sodium 40 Mg Tablet) 40 mg PO DAILY [facility] Last Admin: 05/26/20 09:13 Dose: 40 mg Documented by: Sodium Chloride (0.9% Saline Lock 10 Ml Syringe) 10 - 40 ml IV UD PRN PRN Reason: SALINE FLUSH Last Admin: 05/26/20 21:34 Dose: 10 ml Documented by: Throat Lozenges (Benzocaine/Menthol 1 Lozenge) 1 lozenge MUCOUS MEM Q2H PRN PRN PRN Reason: SORE THROAT Assessment/Plan All Active Problems (Last Reviewed 12/01/19 @ 11:02 by Altagracia Kinsey PA, PA) History of pulmonary embolus (PE) (Acute) History of DVT (deep vein thrombosis) (Acute) [employer] current use of anticoagulant (Acute) Urinary tract infection (Acute) Nondisplaced fracture of medial malleolus of right tibia, initial encounter for closed fracture (Acute) Elevated serum creatinine (Acute) Paroxysmal atrial fibrillation (Acute) Blister of right heel (Acute) Acute gastroenteritis (Resolved) Chest pain (Resolved) Dehydration (Resolved) Dyspnea, unspecified (Resolved) Elevated lactic acid level (Resolved) Fall (Resolved) Fatigue (Resolved) Metabolic encephalopathy (Resolved) Palpitations (Resolved) UTI (urinary tract infection) (Resolved) RECOMMENDATIONS: 1. Wean supplemental oxygen to maintain saturations at or above 90%. 2. Continue diuretic therapy as tolerated by hemodynamics and renal function. 3. Anticipate home-going supplemental oxygen need. 4. The patient can follow-up in the pulmonary medicine clinic 2 weeks after discharge from the hospital. Records from Dr. Babb's office will need to be obtain prior to her office visit. 5. 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 IMPRESSIONS: 1. Acute hypoxemic respiratory insufficiency Most likely secondary to underlying pulmonary hypertension with intracardiac shunt identified on echocardiogram. Shunt direction was right to left. This would certainly account for the patient's oxygen requirement. At this time, I would not recommend any additional inpatient work-up. I would plan to continue diuretic therapy as tolerated by hemodynamics and renal function. I would recommend that the patient follow-up in the pulmonary medicine clinic on an outpatient basis, only after records from Dr. Babb's office have been obtained. I first need to ascertain what type of work-up has been concluded in the past with regard to her pulmonary hypertension. I do anticipate a home- going supplemental oxygen requirement. A secondary pulmonary hypertension work- up can be completed on an outpatient basis, if not previously completed. 2. Generalized weakness/debility status post mechanical fall Continue PT OT and pain management per hospitalist. Tentative plans for TCU disposition. 3. Advanced age and deconditioning/diabetes mellitus/history of atrial fibrillation/history of DVT/hypertension Complicates care, management, recovery and prognosis. Continue home medications as indicated. This note was generated with Dragon dictation software. It may contain incorrect words, spelling, and punctuation that were not noted in checking the note before signing. Inpatient E&M: 36401 Init Hosp L3
[2020-05-27] MEDS: Multivitamins,Ther W-Minerals Tablet 1 TABLET PO (09:27)
[2020-05-27] MEDS: APIXABAN 5 MG TABLET PO ×2 (09:27→17:10)
[2020-05-27] MEDS: Ondansetron 4 MG/2 ML Vial IV (09:27)
[2020-05-27] MEDS: LINAGLIPTIN 5 MG TABLET PO (09:27)
[2020-05-27] MEDS: Pantoprazole Sodium 40 MG Tablet PO (09:27)
[2020-05-27] MEDS: Ascorbic Acid 500 MG Tablet PO (09:27)
[2020-05-27] MEDS: Escitalopram Oxalate 10 MG Tablet PO (09:27)
[2020-05-27] MEDS: Potassium Chloride Oral Tablet 20 MEQ 40 MEQ PO (09:28)
[2020-05-27] MEDS: Acetaminophen 500 MG Tablet 1000 MG PO ×2 (09:28→17:09)
[2020-05-27] MEDS: Metoprolol Tartrate 25 MG Tablet PO ×2 (09:28→22:04)
[2020-05-27] MEDS: 0.9% Saline Lock 10 ML Syringe IV ×2 (09:34→22:12)
[2020-05-27] MEDS: Menthol/Lanolin/Calamine/Znox 113 GM Tube 1 APPLIC TOPICAL ×2 (09:35→22:06)
[2020-05-27] MEDS: Digoxin 125 MCG Tablet PO (09:36)
[2020-05-27] MEDS: Febuxostat 40 MG TABLET 80 MG PO (09:36)
[2020-05-27] MEDS: Methenamine Hippurate 1 GM Tablet PO ×2 (09:36→22:07)
--- NOTE | 2020-05-27 11:17 | PN_ITS ---
Patient Problems: Active and Suspected Problems (Last Reviewed 12/01/19 @ 11:02 by Altagracia Kinsey PA, PA) History of pulmonary embolus (PE) (Acute) History of DVT (deep vein thrombosis) (Acute) [facility] current use of anticoagulant (Acute) Urinary tract infection (Acute) Nondisplaced fracture of medial malleolus of right tibia, initial encounter for closed fracture (Acute) Elevated serum creatinine (Acute) Paroxysmal atrial fibrillation (Acute) Subjective: Patient seen and examined. She complained of some pain in her back today. Patient is on 4 L of oxygen. Per her nurse, she desaturates very quickly. Review of systems otherwise negative. Potassium is 3.4. Vitals/I&O's: Vital Signs Temp Pulse Resp BP Pulse Ox 97.4 F L 78 20 H 138/68 H 94 05/27/20 10:12 05/27/20 10:12 05/27/20 10:12 05/27/20 10:12 05/27/20 10:12 Oxygen Flow Rate (L/min) 4 Oxygen Delivery Method Nasal Cannula Weight: 161 lb 13.109 oz Body Mass Index (BMI) 23.8 Finger Stick Blood Glucose 276 Intake and Output for Last 24 Hours 05/25/20 05/26/20 05/27/20 23:59 23:59 23:59 Intake Total 830 / 830 590 / 590 Output Total 500 / 500 200 / 200 Balance 830 / 830 90 / 90 -200 / -200 General: Alert, Oriented x3, Cooperative HEENT: Atraumatic, PERRLA, EOMI, Normocephalic Oral: Dry Mucosa Neck: Supple, No JVD, Negative Carotid Bruits Lungs: diminished breath sounds bibasally, fine crackles bibasally; on 4L of oxygen. Cardiovascular: Regular rate, No murmurs Abdomen: Bowel Sounds Present, Soft, Non Tender Extremities: No edema, Capillary Refill Less than 3 Seconds Skin: No rashes, No breakdown Musculoskeletal: - - RLE in a soft splint Lymphatic: No Cervical, Supraclavicular, or Inguinal Adenopathy Neurological: Cranial nerves II-XII grossly intact, Neuro grossly intact, Motor Exam 5/5 strength throughout Psych/Mental Status: Normal Affect, Appropriate, Alert and oriented to time, place, person, mood and affect Microbiology Past 72 Hours 05/24/20 09:38 Blood Culture (Wb) - Left Hand Blood Culture - Preliminary No growth in 48 hours. 05/24/20 09:32 Blood Culture (Wb) - Anticubital Left Blood Culture - Preliminary No growth in 48 hours. 05/24/20 06:49 Urine, Clean Catch Urine Culture - Final Mixed Gram Positive Organisms 05/25/20 10:20 Mucosa - Nose SARS-CoV-2 Antigen (Rapid) - Final Laboratory Results 05/27/20 05:56: WBC 9.5, RBC 5.17, Hgb 14.6, Hct 45.9, MCV 88.8, MCH 28.2, MCHC 31.8 L, RDW Std Deviation 46.2 H, RDW Coeff of Rema 14.3, Plt Count 106 L, MPV 11.3, Immature Gran % (Auto) 0.600, Neut % (Auto) 73.7 H, Lymph % (Auto) 12.1 L, [place] % (Auto) 12.7 H, Eos % (Auto) 0.8, Baso % (Auto) 0.1, Absolute Neuts (auto) 7.0, Absolute Lymphs (auto) 1.15, Nucleated RBC % 0 05/27/20 05:56: Sodium 140, Potassium 3.4 L, Chloride 103, Carbon Dioxide 34.0 H , Anion Gap 3 L, BUN 39 H, Creatinine 1.01, Estim Creat Clear Calc 42.56, Est GFR (MDRD) Af Amer 67, Est GFR (MDRD) Non-Af 55 L, BUN/Creatinine Ratio 38.6 H, Glucose 146 H, Calcium 9.0 Current Medications Acetaminophen (Acetaminophen 500 Mg Tablet) 1,000 mg PO Q6H PRN PRN PRN Reason: Pain Score 1-3 Last Admin: 05/27/20 09:28 Dose: 1,000 mg Documented by: Acetaminophen (Acetaminophen 325 Mg Tablet) 650 mg PO Q6H PRN PRN PRN Reason: Temp > 100.7 F Last Admin: 05/26/20 12:46 Dose: 650 mg Documented by: Apixaban (Apixaban 5 Mg Tablet) 5 mg PO BID@0800,1700 [facility] Last Admin: 05/27/20 09:27 Dose: 5 mg Documented by: Ascorbic Acid (Ascorbic Acid 500 Mg Tablet) 500 mg PO DAILY [facility] Last Admin: 05/27/20 09:27 Dose: 500 mg Documented by: Calamine/Phenol (Menthol/Lanolin/Calamine/Znox 113 Gm Tube) 1 applic TOPICAL BID [facility]; Protocol Last Admin: 05/27/20 09:35 Dose: 1 applic Documented by: Digoxin (Digoxin 125 Mcg Tablet) 125 mcg PO DAILY [facility] Last Admin: 05/27/20 09:36 Dose: 125 mcg Documented by: Escitalopram Oxalate (Escitalopram Oxalate 10 Mg Tablet) 10 mg PO DAILY [facility] Last Admin: 05/27/20 09:27 Dose: 10 mg Documented by: Febuxostat (Febuxostat 40 Mg Tablet) 80 mg PO DAILY [facility] Last Admin: 05/27/20 09:36 Dose: 80 mg Documented by: Furosemide (Furosemide 40 Mg Tablet) 40 mg PO BID@1000,1800 [facility] Levofloxacin (Levaquin Iv) 750 mg in 150 mls @ 100 mls/hr IV Q48H [facility] Last Infusion: 05/26/20 10:45 Dose: Infused Documented by: Linagliptin (Linagliptin 5 Mg Tablet) 5 mg PO DAILY [facility] Last Admin: 05/27/20 09:27 Dose: 5 mg Documented by: Melatonin (Melatonin 3 Mg Tablet) 6 mg PO QHS [facility] Last Admin: 05/26/20 21:38 Dose: 6 mg Documented by: Methenamine Hippurate (Methenamine Hippurate 1 Gm Tablet) 1 gm PO BID [facility] Last Admin: 05/27/20 09:36 Dose: 1 gm Documented by: Metoprolol Tartrate (Metoprolol Tartrate 25 Mg Tablet) 25 mg PO BID [facility] Last Admin: 05/27/20 09:28 Dose: 25 mg Documented by: Mirtazapine (Mirtazapine 15 Mg Tablet) 15 mg PO QHS [facility] Last Admin: 05/26/20 21:39 Dose: 15 mg Documented by: Morphine Sulfate (Morphine 4 Mg/Ml Syringe) 4 mg IV Q3H PRN PRN PRN Reason: Pain Score 6-10 Multivitamins/Minerals (Multivitamins,Ther W-Minerals Tablet) [facility] Last Admin: 05/27/20 09:27 Dose: 1 tablet Documented by: Nitroglycerin (Nitroglycerin (Inpatient Use) 0.4 Mg Tab.Subl) 0.4 mg SL Q5M PRN PRN Reason: CARDIAC/CHEST PAIN Nystatin (Nystatin Powder 15gm Bottle) 1 applic TOPICAL [facility]; Protocol Last Admin: 05/27/20 06:40 Dose: 1 applic Documented by: Ondansetron HCl (Ondansetron 4 Mg/2 Ml Vial) 4 mg IV Q8H PRN PRN PRN Reason: NAUSEA/VOMITING Last Admin: 05/27/20 09:27 Dose: 4 mg Documented by: Oxycodone HCl (Oxycodone 5 Mg Tablet) 5 mg PO Q4H PRN PRN PRN Reason: Pain Score 4-5 Last Admin: 05/25/20 13:12 Dose: 5 mg Documented by: Pantoprazole Sodium (Pantoprazole Sodium 40 Mg Tablet) 40 mg PO DAILY [facility] Last Admin: 05/27/20 09:27 Dose: 40 mg Documented by: Sodium Chloride (0.9% Saline Lock 10 Ml Syringe) 10 - 40 ml IV UD PRN PRN Reason: SALINE FLUSH Last Admin: 05/27/20 09:34 Dose: 10 ml Documented by: Throat Lozenges (Benzocaine/Menthol 1 Lozenge) 1 lozenge MUCOUS MEM Q2H PRN PRN PRN Reason: SORE THROAT STROKE Vital Signs/Narrative: Vital Signs Temp Pulse Resp BP Pulse Ox 05/27/20 10:12 97.4 F L 78 20 H 138/68 H 94 05/27/20 09:55 78 05/27/20 09:50 90 05/27/20 09:36 78 133/63 H 05/27/20 09:28 76 05/27/20 08:05 91 Medical Necessity - Tobacco Use Smoking Status: Never smoker Assessment/Plan All Active Problems (Last Reviewed 12/01/19 @ 11:02 by Altagracia GARNER, PA) History of pulmonary embolus (PE) (Acute) History of DVT (deep vein thrombosis) (Acute) [facility] current use of anticoagulant (Acute) Urinary tract infection (Acute) Nondisplaced fracture of medial malleolus of right tibia, initial encounter for closed fracture (Acute) Elevated serum creatinine (Acute) Paroxysmal atrial fibrillation (Acute) Blister of right heel (Acute) Acute gastroenteritis (Resolved) Chest pain (Resolved) Dehydration (Resolved) Dyspnea, unspecified (Resolved) Elevated lactic acid level (Resolved) Fall (Resolved) Fatigue (Resolved) Metabolic encephalopathy (Resolved) Palpitations (Resolved) UTI (urinary tract infection) (Resolved) 85 y/o admitted with a complaint of mechanical fall and found to have UTI #Debility due to mechanical fall * PT/OT on board. Fall precautions * on IV morphine, PO oxycodone and PO tylenol for pain * #Acute hypoxic respiratory failure due to acute heart failure with preserved EF * now on 4L of oxygen * 2D echo showed EF of 60%, with mildly dilated RV, and normal LV systolic function with aneurysmal atrial septum. RVSP of 72mmhg. Bubble study positive for right to left interatrial shunt compatible with small PFO vs ASD * on IV lasix 40mg bid * monitor intake and output. Fluid restriction to 1500cc daily * titrate oxygen to maintain sats >90% * cardiology consulted. * #Acute heart failure with preserved EF: as above. #Severe pulmonary hypertension * RSVP is 72mmhg as above. * pulmonology consulted. #UTI: * UA positive for bacteria. urine cultures growing mixed gram positive organisms. * Blood cultures negative. On IV levofloxacin. will switch to PO levofloxacin today, to complete a 7 day course. #Type 2 diabetes mellitus: On Tradjenta. Insulin sliding scale. Checks AC at bedtime. #History of A. fib: on digoxin and metoprolol. on eliquis. #GERD: On PPI #History of gout: On Uloric. #hypertension: Metoprolol. #History of DVT: on eliquis DVT prophylaxis: Lovenox CODE STATUS: Full code Inpatient E&M: 17310 Subs Hosp L2
[2020-05-27] MEDS: Furosemide 40 MG Tablet PO (17:09)
--- NOTE | 2020-05-27 20:13 | CON.PCM_ITS ---
Problem List (1) Hypoxemia Status: Acute (2) PFO (patent foramen ovale) Status: Chronic (3) Pulmonary hypertension Status: Chronic (4) Paroxysmal atrial fibrillation Status: Acute (5) Sick sinus syndrome Status: Chronic (6) Cardiac pacemaker in situ Status: Chronic (7) Cardiomyopathy, nonischemic Status: Chronic (8) HLD (hyperlipidemia) Status: Chronic Qualifiers: Hyperlipidemia type: unspecified Qualified Code(s): E78.5 - Hyperlipidemia, unspecified (9) Essential hypertension Status: Chronic (10) History of DVT (deep vein thrombosis) Status: Acute (11) History of pulmonary embolus (PE) Status: Acute (12) DM2 (diabetes mellitus, type 2) Status: Chronic (13) CKD (chronic kidney disease) stage 3, GFR 30-59 ml/min Status: Chronic Reason for Consult Date of Consultation: 05/27/20 History of Present Illness: The patient is a 85 year [id number] white female with a past medical history of a small PFO, paroxysmal atrial fibrillation, sick sinus syndrome, permanent pacemaker, non-CAD related cardiomyopathy, lipidemia, hypertension, DVT/PE, diabetes mellitus, and chronic renal insufficiency, who presented for a mechanical fall with an ankle injury (no fracture) with findings of a UTI who is referred for concerns of hypoxemia and an abnormal transthoracic echocardiogram suggesting an interatrial shunt. The patient has been evaluated in the past both noninvasively and invasively from a cardiovascular standpoint and has undergone previous pulmonology evaluation for her history of pulmonary hypertension including a trial of vasodilator therapy. The patient underwent transesophageal echocardiogram on 12-28-2001 at [facility]. At that time her left ventricular systolic function was diminished and she had an LVEF of approximately 35%. Her ARIAN demonstrated a positive agitated saline contrast study for right to left intra-atrial shunt compatible with a small PFO. She has had follow-up noninvasive studies with transthoracic echocardiograms 2012, 2016, and on 05-25-2020. Overall her LV systolic function has improved/normalized. She has had demonstrated evidence of continued elevated pulmonary pressures. She also underwent diagnostic cardiac catheterization on 12-15-2007 at [facility]. At that time her LVEF was reported at approximately 45%. She had no angiographically significant CAD. She was thought to have a non-CAD related cardiomyopathy. Over time with medical management and her permanent pacemaker in place her overa ll LV systolic function has improved. She has continued medical management. She states that home she has not noticed any progressive shortness of breath/dyspnea nor has she complained of ongoing orthopnea or PND. She has had chronic bilateral lower extremity peripheral pitting edema. She has been treated for such with diuretic therapy. She has not complained of ongoing chest discomfort. She states she was not wearing O2 nasal cannula at home. She has become more debilitated and fragile over time. She has developed bilateral upper extremity tremors. She has been walking with assistance at home with a walker. She recently had a mechanical fall which led her to [facility]. She was also found to have a UTI. She was placed in the hospital for further evaluation. There have been concerns in the hospital that she had become hypoxic. She was requiring O2. She underwent evaluation with a transthoracic echocardiogram with the findings as noted below. This study did demonstrate an agitated saline contrast study which was considered faintly positive for right to left interatrial shunt for a small PFO versus ASD. As noted above her ARIAN in 2001 demonstrated that she had a small PFO. During the course of her previous pulmonary evaluation by her previous interactive video technician, Dr. Babb, there was no recommendation above and beyond medical management for any attempt at closure of her PFO. Since being in the hospital she is also been monitored. She has remained in an electronic ventricular paced rhythm. [] Past Medical History Allergies/Adverse Reactions: Allergies exenatide [From Byetta] Allergy (Verified 11/29/19 15:28) Unknown metformin Allergy (Verified 11/29/19 15:28) Rash Penicillins [PCN] Allergy (Verified 11/29/19 15:28) Unknown simvastatin [From Zocor] Adverse Reaction (Severe, Verified 11/29/19 15:28) Myalgias prednisone Adverse Reaction (Unknown, Verified 11/29/19 15:28) effects blood sugar amoxicillin [From Augmentin] Adverse Reaction (Verified 11/29/19 15:28) Diarrhea clavulanic acid [From Augmentin] Adverse Reaction (Verified 11/29/19 15:28) Diarrhea crestor Adverse Reaction (Intermediate, Uncoded 12/06/18 13:27) myalgia Home Medications: Ambulatory Orders Medication Instructions Recorded Apixaban [Eliquis] 5 mg PO BID 04/30/18 Ascorbic Acid [Vitamin C] 500 mg PO DAILY 08/18/18 Febuxostat [Uloric] 80 mg PO DAILY 08/18/18 Melatonin 6 mg PO QHS 08/18/18 Pantoprazole Sodium [Protonix] 40 mg PO DAILY 08/18/18 Digoxin 125 mcg PO DAILY 09/06/18 Metoprolol Tartrate [Lopressor 25 mg PO BID 09/06/18 (beta chanel)] Mirtazapine 15 mg PO QHS 09/06/18 Multivitamin with Minerals 1 tab PO DAILY 09/06/18 [Multiple Vitamin] Acetaminophen [Tylenol] 1,000 mg PO Q6H PRN PRN tab 09/30/18 sitagliptin 100 mg tablet 100 mg PO DAILY 11/29/19 Cranberry Conc/Ascorbic Acid 2 each PO BID 05/24/20 [Cranberry Plus Vitamin C Sftgl] Escitalopram Oxalate [Lexapro] 10 mg PO DAILY 05/24/20 Furosemide [Lasix] 20 mg PO 05/24/20 Methenamine Hippurate [Hiprex] 1 gm PO BID 05/24/20 Past Medical History (Chronic Problems): Chronic Problems (Last Reviewed 12/01/19 @ 11:02 by Altagracia GARNER, PA) PFO (patent foramen ovale) (Chronic) Essential hypertension (Chronic) Pressure ulcer of right foot, unstageable (Chronic) Delayed wound healing (Chronic) Malnutrition (Chronic) CKD (chronic kidney disease) stage 3, GFR 30-59 ml/min (Chronic) Sick sinus syndrome (Chronic) Cardiomyopathy, nonischemic (Chronic) HLD (hyperlipidemia) (Chronic) Hypothyroidism (Chronic) Hypokalemia (Chronic) Chronic diastolic (congestive) heart failure (Chronic) Iron deficiency anemia (Chronic) GERD (gastroesophageal reflux disease) (Chronic) Cardiac pacemaker in situ (Chronic) DM2 (diabetes mellitus, type 2) (Chronic) CHF (congestive heart failure) (Chronic) Pulmonary hypertension (Chronic) Surgical History: cholecystectomy, hysterectomy, pacemaker implantation, total knee arthroplasty - Bilateral., - - IVC filter, right hip fracture repair. Psychiatric History: Anxiety, Depression HUMAN RESOURCES CONSULTANT History: No pertinent HUMAN RESOURCES CONSULTANT history - *Family History Paternal Family History: Family History (Last Reviewed 12/06/18 @ 13:28 by Altagracia Menard) Father Myocardial infarction History Items: Heart Disease Maternal Family History: Family History (Last Reviewed 12/06/18 @ 13:28 by Altagracia Menard) Father Myocardial infarction History Items: - - No marked maternal family history including heart disease, diabetes or cancer. Lives: Alone Smoking Status: Never smoker Alcohol: None Drugs: None Review of Systems - Review of Systems General: Reports: Weakness. Denies: Fever, Fatigue, Night Sweats Cardiovascular: Reports: Peripheral Edema. Denies: Chest Discomfort, Shortness of Breath, Orthopnea, PND, Palpitations, Lightheadedness, Dizziness, Near Syncope, Syncope Respiratory: Denies: Cough, Sputum Production, Hemoptysis Gastrointestinal: Denies: Hematemesis, Hematochezia, Melena Genitourinary: Denies: Dysuria, Hematuria Skin: Denies: Rash Neurological: Reports: Tremors Subjectve: This is an 85-year-old white female who has become frail appearing compared to previous evaluations who appears to be resting comfortably at the moment in no acute distress. Objective: Vital Signs Temp Pulse Resp BP Pulse Ox 98.4 F 87 20 H 121/71 H 94 05/27/20 14:36 05/27/20 18:20 05/27/20 14:36 05/27/20 14:36 05/27/20 14:36 Oxygen Flow Rate (L/min) 4 Oxygen Delivery Method Nasal Cannula Weight: 161 lb 13.109 oz Body Mass Index (BMI) 23.8 Finger Stick Blood Glucose 276 Intake and Output for Last 24 Hours 05/25/20 05/26/20 05/27/20 23:59 23:59 23:59 Intake Total 830 / 830 590 / 590 200 / 200 Output Total 500 / 500 600 / 600 Balance 830 / 830 90 / 90 -400 / -400 General: Awake, Alert, Oriented x 3, Cooperative, No Acute Distress HEENT: Atraumatic, Normocephalic, PERRL, EOMI, Sclera Non Icteric Neck: Supple, Good ROM, No JVD Lungs: Clear to auscultation Cardiovascular: Regular Rhythm, Normal S1, Normal S2 Abdomen: Bowel Sounds Present, Soft Extremities: Mild LLE Edema, - - Right lower extremity: Positive Chemo wrap Psych/Mental Status: Appropriate 05/27/20 05:56: WBC 9.5, RBC 5.17, Hgb 14.6, Hct 45.9, MCV 88.8, MCH 28.2, MCHC 31.8 L, Plt Count 106 L, MPV 11.3, Immature Gran % (Auto) 0.600, Neut % (Auto) 73.7 H, Lymph % (Auto) 12.1 L, [place] % (Auto) 12.7 H, Eos % (Auto) 0.8, Baso % (Auto) 0.1, Absolute Neuts (auto) 7.0, Nucleated RBC % 0 05/27/20 05:56: Sodium 140, Potassium 3.4 L, Chloride 103, Carbon Dioxide 34.0 H , Anion Gap 3 L, BUN 39 H, Creatinine 1.01, Est GFR (MDRD) Af Amer 67, Est GFR (MDRD) Non-Af 55 L, BUN/Creatinine Ratio 38.6 H, Glucose 146 H, Calcium 9.0 Rhythm: Chronic ventricular paced rhythm ECHO: ??2020 Interpretation Summary The study was technically difficult. Left ventricular systolic function is normal. The estimated ejection fraction is 60 %. Septal motion consistent with IVCD. Mildly dilated right ventricle. Mild global right ventricular systolic dysfunction. The right atrium is mildly enlarged. Aneurysmal atrial septum. There is mild to moderate mitral annular calcification. Extension of the mitral annular calcification on the base of the posterior mitral valve leaflet. Trivial mitral valve insufficiency. Moderate (2+) tricuspid valve insufficiency. Mild diffuse aortic valve thickening. Right ventricular systolic pressure estimated to be 72 mmHg. Severe pulmonary hypertension. Unable to assess diastolic dysfunction. Agitated saline contrast study considered faintly positive for a right to left interatrial shunt compatible with a small PFO versus ASD. Chest X-ray: IMPRESSION: No acute findings. Electronically Signed: Gypsy Oneill MD at 23:24 EDT Assessment/Plan 1. Hypoxemia The etiology of the patient's hypoxemia may be multifactorial. The question has been raised as to whether or not this is related to her history of pulmonary hypertension and her history of a small PFO. It is theoretically conceivable that with her estimated RV systolic pressure appearing somewhat more prominent than it has been on her previous noninvasive studies that this could create a pressure patent PFO scenario allowing for a right to left interatrial shunt which could contribute to her diminished O2 saturation. The patient has been placed on oxygen therapy to assist with her ongoing evaluation and care. The patient has also been evaluated by Dr. Rosas of pulmonology and critical care medicine. He is recommended continued oxygen therapy and no additional diagnostic studies, barring a change in her clinical course, at the present time pending his review of her previous extensive cardiopulmonary evaluation. 2. PFO The patient is known to have a small PFO. It was documented by transesophageal echocardiogram in 2001. She has been followed over time by history, exam, and noninvasive and invasive studies. She has undergone previous pulmonology evaluation by Dr. Babb for her history of pulmonary hypertension. States she was treated with vasodilator therapy for period of time. During her previous pulmonary evaluation there was no recommendations to proceed with closure of her PFO. 3. Pulmonary hypertension The patient has had a longstanding history of pulmonary hypertension which was not thought to be related to her small PFO. And she has undergone extensive pulmonary evaluation in the past. She states she was treated with pulmonary vasodilator therapy for period of time. Upon her recent echocardiogram her estimated RV systolic pressure appears somewhat more prominent than in the past. Her right ventricle appears dilated and dysfunctional. This could lead to a situation of pulmonary hypertension with cor pulmonale and right heart failure. At the present time she will need continued supportive care with medical management and O2 supplements as needed. 4. Paroxysmal atrial fibrillation She will need continued medical therapy including anticoagulant therapy as long as the risk-benefit ratio is in her favor. 5. Sick sinus syndrome She does have a history of sick sinus syndrome. She is status post permanent pacemaker placement. 6. Permanent pacemaker She does have a permanent pacemaker. It has been followed. It has been functioning appropriately. 7. Non-CAD related cardiomyopathy She is thought in the past to have a non-CAD related cardiomyopathy. Over time her overall LV systolic function/LVEF has improved/normalized. She should continue medical management and follow-up. 8. Hyperlipidemia She should continue medical therapy as deemed appropriate. 9. Hypertension Her blood pressure can be followed with her medicines being adjusted as needed. 10. 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 There has been some concern in the past as to whether her history of PE contributed to her pulmonary hypertension. She has been on anticoagulant therapy. 11. Diabetes mellitus She will continue evaluation care by her primary care physicians. 12. Chronic renal insufficiency She does have an element of chronic renal insufficiency. This should be taken into consideration with respect to adjustment of her medications. Further evaluation from a cardiac standpoint with respect to the need for any other additional noninvasive or invasive studies and/or future consideration for either a percutaneous or surgical based closure of her PFO, if clinically indicated, was discussed with the patient. At the present time, at her age, with her current quality of life, she is not sure that she would want a proceed with additional diagnostic studies/interventions. She would have to consider that and discuss that situation with her family members. Thus, at the present time she will continue medical management/support which may include O2 therapy. Comment: The patient's case has been previously discussed and reviewed with the patient, Dr. Pena, and Dr. Rosas. This note was generated using a voice recognition system and there may be incorrect words, spelling or punctuation that were not noted when reviewing the office note prior to saving.
[2020-05-27] MEDS: Mirtazapine 15 MG Tablet PO (22:05)
[2020-05-27] MEDS: MELATONIN 3 MG TABLET 6 MG PO (22:06)
[2020-05-27] MEDS: Magnesium Hydroxide 30 ML UDC 15 ML PO (22:09)
[2020-05-27] MEDS: Furosemide 40 MG/4 ML Vial IV (22:12)
[2020-05-28] VITALS (11 sets, daily range): BP systolic 95–137; BP diastolic 46–85; PULSE 66–92; RESP 18; TEMP 36.5–36.7; O2SAT 91–95
[2020-05-28] MEDS: Acetaminophen 500 MG Tablet 1000 MG PO (03:14)
[2020-05-28 05:47] LABS: Absolute Lymphocyte Count 0.81 X10^3/uL (0.83-4.51); Absolute Neutrophil Count 7.9 X10^3/uL (2.0-7.7); Basophil# 0.02 X10^3/uL; Basophil% 0.2 % (0-1); Eosinophil# 0.02 X10^3/uL; Eosinophils% 0.2 % (0-5); Hematocrit 47.5 % (37-47); Hemoglobin 15.3 g/dL (12.0-15.0); Lymphocyte # 0.81 X10^3/ul (4.0); Lymphocyte % 8.4 % (19-41); Mean Corp Hgb Conc 32.2 g/dL (32-36); Mean Corpuscular Hgb 28.7 pg (27.0-32.0); Mean Corpuscular Volume 89.1 fL (81-99); Mean Platelet Vol. 11.5 fl (6.2-12.0); Monocyte# 0.91 X10^3/uL; Monocyte% 9.4 % (0-10); NRBC Flagged by Analyzer 0 % (0-5); Neutrophil # 7.85 X10^3/uL (2.7-7.7); Neutrophil % 81.2 % (47-70); Platelet Count 109 K/mm3 (150-450); RBC Distribution Width CV 14.6 % (11.6-14.6); RBC Distribution Width SD 46.8 fl (35.1-43.9); Red Blood Count 5.33 M/mm3 (4.2-5.4); White Blood Count 9.7 K/mm3 (4.4-11.0)
[2020-05-28] MEDS: levoFLOXacin 750 MG Tablet PO (06:05)
[2020-05-28] MEDS: Nystatin Powder 15gm Bottle 1 APPLIC TOPICAL ×2 (06:05→14:47)
[2020-05-28 06:17] LABS: Anion Gap 5 (5-15); BUN 43 mg/dL (7-18); BUN/Creat Ratio 43.5 RATIO (10-20); Calcium,Total 9.3 mg/dL (8.5-10.1); Chloride 104 mmol/L (98-107); Creatinine, Serum 0.99 mg/dL (0.55-1.02); EST Glomerular Filtration Rate 57 mL/min (>60); Est Glom Filt Rate - Afr Amer 69 mL/min (>60); Estimated Creatinine Clearance 43.42 ml/min; Glucose 220 mg/dL (74-106); Potassium 3.7 mmol/L (3.5-5.1); Sodium Level 141 mmol/L (136-145)
[2020-05-28] MEDS: Multivitamins,Ther W-Minerals Tablet 1 TABLET PO (08:54)
[2020-05-28] MEDS: APIXABAN 5 MG TABLET PO (08:54)
[2020-05-28] MEDS: oxyCODONE 5 MG Tablet PO ×2 (08:56→14:51)
--- NOTE | 2020-05-28 09:26 | PN.CARD_ITS ---
Subjectve: The patient is awake and alert this morning. She has no new complaints. Objective: Vital Signs Temp Pulse Resp BP Pulse Ox 98.0 F 82 18 120/69 92 05/28/20 08:57 05/28/20 08:57 05/28/20 08:57 05/28/20 08:57 05/28/20 08:57 Oxygen Flow Rate (L/min) 4 Oxygen Delivery Method Nasal Cannula Weight: 161 lb 13.109 oz Body Mass Index (BMI) 23.8 Finger Stick Blood Glucose 276 Intake and Output for Last 24 Hours 05/26/20 05/27/20 05/28/20 23:59 23:59 23:59 Intake Total 590 / 590 400 / 400 100 / 100 Output Total 500 / 500 900 / 900 400 / 400 Balance 90 / 90 -500 / -500 -300 / -300 General: Awake, Alert, Oriented x 3, Cooperative, No Acute Distress HEENT: Atraumatic, Normocephalic, PERRL, EOMI, Sclera Non Icteric Neck: Supple, Good ROM, No JVD Lungs: Clear to auscultation Cardiovascular: Regular Rhythm, Normal S1, Normal S2 Abdomen: Bowel Sounds Present, Soft Extremities: - - Right lower extremity: Chemo wrap Neurological: No Focal Motor or Sensory Deficit Psych/Mental Status: Appropriate 05/28/20 05:36: WBC 9.7, RBC 5.33, Hgb 15.3 H, Hct 47.5 H, MCV 89.1, MCH 28.7, MCHC 32.2, Plt Count 109 L, MPV 11.5, Immature Gran % (Auto) 0.600, Neut % (Auto) 81.2 H, Lymph % (Auto) 8.4 L, [place] % (Auto) 9.4, Eos % (Auto) 0.2, Baso % (Auto) 0.2, Absolute Neuts (auto) 7.9 H, Nucleated RBC % 0 05/28/20 05:36: Sodium 141, Potassium 3.7, Chloride 104, Carbon Dioxide 32.0, Anion Gap 5, BUN 43 H, Creatinine 0.99, Est GFR (MDRD) Af Amer 69, Est GFR (MDRD) Non-Af 57 L, BUN/Creatinine Ratio 43.5 H, Glucose 220 H, Calcium 9.3 Medical Necessity - Tobacco Use Smoking Status: Never smoker Assessment/Plan 1. Hypoxemia The etiology of the patient's hypoxemia may be multifactorial. The question has been raised as to whether or not this is related to her history of pulmonary hypertension and her history of a small PFO. It is theoretically conceivable that with her estimated RV systolic pressure appearing somewhat more prominent than it has been on her previous noninvasive studies that this could create a pressure patent PFO scenario allowing for a right to left interatrial shunt which could contribute to her diminished O2 saturation. The patient has been placed on oxygen therapy to assist with her ongoing evaluation and care. The patient has also been evaluated by Dr. Rosas of pulmonology and critical care medicine. He is recommended continued oxygen therapy and no additional diagnostic studies, barring a change in her clinical course, at the present time pending his review of her previous extensive cardiopulmonary evaluation. 2. PFO The patient is known to have a small PFO. It was documented by transesophageal echocardiogram in 2001. She has been followed over time by history, exam, and noninvasive and invasive studies. She has undergone previous pulmonology evaluation by Dr. Babb for her history of pulmonary hypertension. States she was treated with vasodilator therapy for period of time. During her previous pulmonary evaluation there was no recommendations to proceed with closure of her PFO. At the present time, noting that this is already been defined by a previous ARIAN, it does not appear that she requires additional cardiac diagnostic studies. If over time pulmonology recommends consideration for further evaluation of PFO that would lead to an attempt at closure either percutaneous or surgical based then the patient would need to be evaluated at a tertiary care center that would be able to perform such procedures. Graph otherwise she will continue supportive care at this time. 3. Pulmonary hypertension The patient has had a longstanding history of pulmonary hypertension which was not thought to be related to her small PFO. And she has undergone extensive pulmonary evaluation in the past. She states she was treated with pulmonary vasodilator therapy for period of time. Upon her recent echocardiogram her estimated RV systolic pressure appears somewhat more prominent than in the past. Her right ventricle appears dilated and dysfunctional. This could lead to a situation of pulmonary hypertension with cor pulmonale and right heart failure. At the present time she will need continued supportive care with medical management and O2 supplements as needed. 4. Paroxysmal atrial fibrillation She will need continued medical therapy including anticoagulant therapy as long as the risk-benefit ratio is in her favor. 5. Sick sinus syndrome She does have a history of sick sinus syndrome. She is status post permanent pacemaker placement. 6. Permanent pacemaker She does have a permanent pacemaker. It has been followed. It has been functioning appropriately. 7. Non-CAD related cardiomyopathy She is thought in the past to have a non-CAD related cardiomyopathy. Over time her overall LV systolic function/LVEF has improved/normalized. She should continue medical management and follow-up. 8. Hyperlipidemia She should continue medical therapy as deemed appropriate. 9. Hypertension Her blood pressure can be followed with her medicines being adjusted as needed. 10. 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 There has been some concern in the past as to whether her history of PE contributed to her pulmonary hypertension. She has been on anticoagulant therapy. 11. Diabetes mellitus She will continue evaluation care by her primary care physicians. 12. Chronic renal insufficiency She does have an element of chronic renal insufficiency. This should be taken into consideration with respect to adjustment of her medications. Comment: As noted above, the present time she will continue supportive medical therapy. If pulmonology, status post review of her case, recommend she be considered for additional cardiac evaluation for consideration for closure of a PFO, then she would need to be evaluated at a tertiary care center that can further evaluate/perform such procedures. Above has been discussed with her. At the present time she is not sure how she would want to proceed based upon her age and her other medical conditions. She would have to discuss this with her family. In the interim she will continue to undergo evaluation care per internal medicine. As noted above there are no additional cardiovascular studies/interventions pending at this time. Thank you for allowing me to participate in the care of your patient. Please don't hesitate to call if any issues arise. This note was generated using a voice recognition system and there may be incorrect words, spelling or punctuation that were not noted when reviewing the office note prior to saving.
[2020-05-28] MEDS: Morphine 4 MG/ML Syringe IV (10:21)
[2020-05-28] MEDS: 0.9% Saline Lock 10 ML Syringe IV (10:21)
--- NOTE | 2020-05-28 10:44 | PN_ITS ---
Patient Problems: Active and Suspected Problems (Last Reviewed 12/01/19 @ 11:02 by Altagracia Kinsey PA, PA) History of pulmonary embolus (PE) (Acute) History of DVT (deep vein thrombosis) (Acute) longterm current use of anticoagulant (Acute) Urinary tract infection (Acute) Nondisplaced fracture of medial malleolus of right tibia, initial encounter for closed fracture (Acute) Elevated serum creatinine (Acute) Hypoxemia (Acute) Paroxysmal atrial fibrillation (Acute) Vitals/I&O's: Vital Signs Temp Pulse Resp BP Pulse Ox 98.0 F 82 18 120/69 92 05/28/20 08:57 05/28/20 08:57 05/28/20 08:57 05/28/20 08:57 05/28/20 08:57 Oxygen Flow Rate (L/min) 4 Oxygen Delivery Method Nasal Cannula Weight: 73.4 kg Body Mass Index (BMI) 23.8 Finger Stick Blood Glucose 276 Intake and Output for Last 24 Hours 05/26/20 05/27/20 05/28/20 23:59 23:59 23:59 Intake Total 590 / 590 400 / 400 100 / 100 Output Total 500 / 500 900 / 900 400 / 400 Balance 90 / 90 -500 / -500 -300 / -300 Microbiology Past 72 Hours 05/24/20 09:38 Blood Culture (Wb) - Left Hand Blood Culture - Preliminary No growth in 48 hours. 05/24/20 09:32 Blood Culture (Wb) - Anticubital Left Blood Culture - Preliminary No growth in 48 hours. 05/24/20 06:49 Urine, Clean Catch Urine Culture - Final Mixed Gram Positive Organisms 05/25/20 10:20 Mucosa - Nose SARS-CoV-2 Antigen (Rapid) - Final Laboratory Results 05/28/20 05:36: WBC 9.7, RBC 5.33, Hgb 15.3 H, Hct 47.5 H, MCV 89.1, MCH 28.7, MCHC 32.2, RDW Std Deviation 46.8 H, RDW Coeff of Rema 14.6, Plt Count 109 L, MPV 11.5, Immature Gran % (Auto) 0.600, Neut % (Auto) 81.2 H, Lymph % (Auto) 8.4 L, [place] % (Auto) 9.4, Eos % (Auto) 0.2, Baso % (Auto) 0.2, Absolute Neuts (auto) 7.9 H, Absolute Lymphs (auto) 0.81 L, Nucleated RBC % 0 05/28/20 05:36: Sodium 141, Potassium 3.7, Chloride 104, Carbon Dioxide 32.0, Anion Gap 5, BUN 43 H, Creatinine 0.99, Estim Creat Clear Calc 43.42, Est GFR (MDRD) Af Amer 69, Est GFR (MDRD) Non-Af 57 L, BUN/Creatinine Ratio 43.5 H, Glucose 220 H, Calcium 9.3 Current Medications Acetaminophen (Acetaminophen 500 Mg Tablet) 1,000 mg PO Q6H PRN PRN PRN Reason: Pain Score 1-3 Last Admin: 05/28/20 03:14 Dose: 1,000 mg Documented by: Acetaminophen (Acetaminophen 325 Mg Tablet) 650 mg PO Q6H PRN PRN PRN Reason: Temp > 100.7 F Last Admin: 05/26/20 12:46 Dose: 650 mg Documented by: Apixaban (Apixaban 5 Mg Tablet) 5 mg PO BID@0800,1700 [facility] Last Admin: 05/28/20 08:54 Dose: 5 mg Documented by: Ascorbic Acid (Ascorbic Acid 500 Mg Tablet) 500 mg PO DAILY [facility] Last Admin: 05/27/20 09:27 Dose: 500 mg Documented by: Calamine/Phenol (Menthol/Lanolin/Calamine/Znox 113 Gm Tube) 1 applic TOPICAL BID [facility]; Protocol Last Admin: 05/27/20 22:06 Dose: 1 applic Documented by: Digoxin (Digoxin 125 Mcg Tablet) 125 mcg PO DAILY [facility] Last Admin: 05/27/20 09:36 Dose: 125 mcg Documented by: Escitalopram Oxalate (Escitalopram Oxalate 10 Mg Tablet) 10 mg PO DAILY [facility] Last Admin: 05/27/20 09:27 Dose: 10 mg Documented by: Febuxostat (Febuxostat 40 Mg Tablet) 80 mg PO DAILY [facility] Last Admin: 05/27/20 09:36 Dose: 80 mg Documented by: Furosemide (Furosemide 40 Mg Tablet) 40 mg PO BID@1000,1800 [facility] Last Admin: 05/27/20 17:09 Dose: 40 mg Documented by: Levofloxacin (Levofloxacin 750 Mg Tablet) 750 mg PO Q48@0600 [facility] Stop: 06/03/20 06:01 Last Admin: 05/28/20 06:05 Dose: 750 mg Documented by: Linagliptin (Linagliptin 5 Mg Tablet) 5 mg PO DAILY [facility] Last Admin: 05/27/20 09:27 Dose: 5 mg Documented by: Magnesium Hydroxide (Magnesium Hydroxide 30 Ml Udc) 15 ml PO BID [facility] Last Admin: 05/27/20 22:09 Dose: 15 ml Documented by: Melatonin (Melatonin 3 Mg Tablet) 6 mg PO QHS [facility] Last Admin: 05/27/20 22:06 Dose: 6 mg Documented by: Methenamine Hippurate (Methenamine Hippurate 1 Gm Tablet) 1 gm PO BID [facility] Last Admin: 05/27/20 22:07 Dose: 1 gm Documented by: Metoprolol Tartrate (Metoprolol Tartrate 25 Mg Tablet) 25 mg PO BID [facility] Last Admin: 05/27/20 22:04 Dose: 25 mg Documented by: Mirtazapine (Mirtazapine 15 Mg Tablet) 15 mg PO QHS [facility] Last Admin: 05/27/20 22:05 Dose: 15 mg Documented by: Morphine Sulfate (Morphine 4 Mg/Ml Syringe) 4 mg IV Q3H PRN PRN PRN Reason: Pain Score 6-10 Last Admin: 05/28/20 10:21 Dose: 4 mg Documented by: Multivitamins/Minerals (Multivitamins,Ther [facility]) [facility] Last Admin: 05/28/20 08:54 Dose: 1 tablet Documented by: Nitroglycerin (Nitroglycerin (Inpatient Use) 0.4 Mg Tab.Subl) 0.4 mg SL Q5M PRN PRN Reason: CARDIAC/CHEST PAIN Nystatin (Nystatin Powder 15gm Bottle) 1 applic TOPICAL TID [facility]; Protocol Last Admin: 05/28/20 06:05 Dose: 1 applic Documented by: Ondansetron HCl (Ondansetron 4 Mg/2 Ml Vial) 4 mg IV Q8H PRN PRN PRN Reason: NAUSEA/VOMITING Last Admin: 05/27/20 09:27 Dose: 4 mg Documented by: Oxycodone HCl (Oxycodone 5 Mg Tablet) 5 mg PO Q4H PRN PRN PRN Reason: Pain Score 4-5 Last Admin: 05/28/20 08:56 Dose: 5 mg Documented by: Pantoprazole Sodium (Pantoprazole Sodium 40 Mg Tablet) 40 mg PO DAILY [facility] Last Admin: 05/27/20 09:27 Dose: 40 mg Documented by: Promethazine HCl (Promethazine 25 Mg Tablet) 25 mg PO Q4H PRN PRN PRN Reason: NAUSEA/VOMITING Sodium Chloride (0.9% Saline Lock 10 Ml Syringe) 10 - 40 ml IV UD PRN PRN Reason: SALINE FLUSH Last Admin: 05/28/20 10:21 Dose: 10 ml Documented by: Throat Lozenges (Benzocaine/Menthol 1 Lozenge) 1 lozenge MUCOUS MEM Q2H PRN PRN PRN Reason: SORE THROAT STROKE Vital Signs/Narrative: Vital Signs Temp Pulse Resp BP Pulse Ox 05/28/20 08:57 98.0 F 82 18 120/69 92 05/28/20 07:02 95 Medical Necessity - Tobacco Use Smoking Status: Never smoker Assessment/Plan All Active Problems (Last Reviewed 12/01/19 @ 11:02 by Altagracia Kinsey PA, PA) History of pulmonary embolus (PE) (Acute) History of DVT (deep vein thrombosis) (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
[2020-05-28] MEDS: LINAGLIPTIN 5 MG TABLET PO (11:21)
[2020-05-28] MEDS: Pantoprazole Sodium 40 MG Tablet PO (11:21)
[2020-05-28] MEDS: Ascorbic Acid 500 MG Tablet PO (11:21)
[2020-05-28] MEDS: Furosemide 40 MG Tablet PO (11:22)
[2020-05-28] MEDS: Escitalopram Oxalate 10 MG Tablet PO (11:22)
[2020-05-28] MEDS: Digoxin 125 MCG Tablet PO (11:22)
[2020-05-28] MEDS: Metoprolol Tartrate 25 MG Tablet PO (11:22)
[2020-05-28] MEDS: Methenamine Hippurate 1 GM Tablet PO (11:22)
[2020-05-28] MEDS: Magnesium Hydroxide 30 ML UDC 15 ML PO (11:26)
--- NOTE | 2020-05-28 12:01 | CASEMGMT ---
Addendum entered by Karma Ortez 05/28/20 14:22: PA updated pt and pt's son Richard on discharge to TCU today. Pt and Richard state understanding. Original Note: Social Work Note Pt will likely be medically ready for discharge to TCU today. PA placed a call to Keri with TCU and updated her. Pt will be able to discharge to TCU today. Plan: TCU today Karma Ortez CLINICAL QUALITY RN, DISPLAY SCREEN FABRICATOR
--- NOTE | 2020-05-28 12:39 | CASEMGMT ---
Pt screened using [facility] Palliative Care Tool. Pt did not meet criteria.
--- NOTE | 2020-05-28 13:04 | PN_ITS ---
Patient Problems: Active and Suspected Problems (Last Reviewed 12/01/19 @ 11:02 by Altagracia Kinsey PA, PA) History of pulmonary embolus (PE) (Acute) History of DVT (deep vein thrombosis) (Acute) jail current use of anticoagulant (Acute) Urinary tract infection (Acute) Nondisplaced fracture of medial malleolus of right tibia, initial encounter for closed fracture (Acute) Elevated serum creatinine (Acute) Hypoxemia (Acute) Paroxysmal atrial fibrillation (Acute) Subjective: Patient did okay overnight. No acute issues were reported. Patient feels subjectively unchanged compared to previous. Patient reports she has been on supplemental oxygen in the past, but not recently. Patient has had significant lower extremity edema. Patient is unclear on previous work-up for pulmonary hypertension, but does state that it was done by Dr. Babb. - Physical Exam Vitals/I&O's: Vital Signs Temp Pulse Resp BP Pulse Ox 36.7 C 83 18 120/69 94 05/28/20 08:57 05/28/20 11:22 05/28/20 08:57 05/28/20 08:57 05/28/20 10:53 Oxygen Flow Rate (L/min) 3 Oxygen Delivery Method Nasal Cannula Weight: 73.4 kg Body Mass Index (BMI) 23.8 Finger Stick Blood Glucose 276 Intake and Output for Last 24 Hours 05/26/20 05/27/20 05/28/20 23:59 23:59 23:59 Intake Total 590 / 590 400 / 400 100 / 100 Output Total 500 / 500 900 / 900 400 / 400 Balance 90 / 90 -500 / -500 -300 / -300 General: Alert, Oriented x3, Cooperative, No apparent distress, - - No conversational dyspnea. Appears stated age. HEENT: Atraumatic, PERRLA, EOMI, Normocephalic, - - No scleral icterus or injection noted Oral: Moist Mucosa, No Gingival or Mucosal Lesions/ Ulcerations Neck: Supple, No Nodes, Trachea Midline, JVD, Right Lungs: No rhonchi, No wheeze, No rales, Diminished, - - Symmetric expansion Cardiovascular: Normal S1, Normal S2, No murmurs, Irregular Rate, No rub noted, No Gallop Abdomen: Bowel Sounds Present, Soft, Non Tender, Non-Distended Extremities: No clubbing, No cyanosis, Edema - Right greater than left lower extremity Musculoskeletal: No Tenderness to Palpation of Joints or Extremities Lymphatic: No Cervical, Supraclavicular, or Inguinal Adenopathy Neurological: Cranial nerves II-XII grossly intact, Neuro grossly intact, Motor Exam 5/5 strength throughout Psych/Mental Status: Appropriate, Flat Affect Microbiology Past 72 Hours 05/24/20 09:38 Blood Culture (Wb) - Left Hand Blood Culture - Preliminary No growth in 48 hours. 05/24/20 09:32 Blood Culture (Wb) - Anticubital Left Blood Culture - Preliminary No growth in 48 hours. 05/24/20 06:49 Urine, Clean Catch Urine Culture - Final Mixed Gram Positive Organisms 05/25/20 10:20 Mucosa - Nose SARS-CoV-2 Antigen (Rapid) - Final Laboratory Results 05/28/20 05:36: WBC 9.7, RBC 5.33, Hgb 15.3 H, Hct 47.5 H, MCV 89.1, MCH 28.7, MCHC 32.2, RDW Std Deviation 46.8 H, RDW Coeff of Rema 14.6, Plt Count 109 L, MPV 11.5, Immature Gran % (Auto) 0.600, Neut % (Auto) 81.2 H, Lymph % (Auto) 8.4 L, [place] % (Auto) 9.4, Eos % (Auto) 0.2, Baso % (Auto) 0.2, Absolute Neuts (auto) 7.9 H, Absolute Lymphs (auto) 0.81 L, Nucleated RBC % 0 05/28/20 05:36: Sodium 141, Potassium 3.7, Chloride 104, Carbon Dioxide 32.0, Anion Gap 5, BUN 43 H, Creatinine 0.99, Estim Creat Clear Calc 43.42, Est GFR (MDRD) Af Amer 69, Est GFR (MDRD) Non-Af 57 L, BUN/Creatinine Ratio 43.5 H, Glucose 220 H, Calcium 9.3 Current Medications Acetaminophen (Acetaminophen 500 Mg Tablet) 1,000 mg PO Q6H PRN PRN PRN Reason: Pain Score 1-3 Last Admin: 05/28/20 03:14 Dose: 1,000 mg Documented by: Acetaminophen (Acetaminophen 325 Mg Tablet) 650 mg PO Q6H PRN PRN PRN Reason: Temp > 100.7 F Last Admin: 05/26/20 12:46 Dose: 650 mg Documented by: Apixaban (Apixaban 5 Mg Tablet) 5 mg PO BID@0800,1700 [facility] Last Admin: 05/28/20 08:54 Dose: 5 mg Documented by: Ascorbic Acid (Ascorbic Acid 500 Mg Tablet) 500 mg PO DAILY [facility] Last Admin: 05/28/20 11:21 Dose: 500 mg Documented by: Calamine/Phenol (Menthol/Lanolin/Calamine/Znox 113 Gm Tube) 1 applic TOPICAL BID [facility]; Protocol Last Admin: 05/27/20 22:06 Dose: 1 applic Documented by: Digoxin (Digoxin 125 Mcg Tablet) 125 mcg PO DAILY [facility] Last Admin: 05/28/20 11:22 Dose: 125 mcg Documented by: Escitalopram Oxalate (Escitalopram Oxalate 10 Mg Tablet) 10 mg PO DAILY [facility] Last Admin: 05/28/20 11:22 Dose: 10 mg Documented by: Febuxostat (Febuxostat 40 Mg Tablet) 80 mg PO DAILY [facility] Last Admin: 05/27/20 09:36 Dose: 80 mg Documented by: Furosemide (Furosemide 40 Mg Tablet) 40 mg PO BID@1000,1800 [facility] Last Admin: 05/28/20 11:22 Dose: 40 mg Documented by: Levofloxacin (Levofloxacin 750 Mg Tablet) 750 mg PO Q48@0600 [facility] Stop: 06/03/20 06:01 Last Admin: 05/28/20 06:05 Dose: 750 mg Documented by: Linagliptin (Linagliptin 5 Mg Tablet) 5 mg PO DAILY [facility] Last Admin: 05/28/20 11:21 Dose: 5 mg Documented by: Magnesium Hydroxide (Magnesium Hydroxide 30 Ml [facility] [place]) 15 ml PO BID [facility] Last Admin: 05/28/20 11:26 Dose: 15 ml Documented by: Melatonin (Melatonin 3 Mg Tablet) 6 mg PO QHS [facility] Last Admin: 05/27/20 22:06 Dose: 6 mg Documented by: Methenamine Hippurate (Methenamine Hippurate 1 Gm Tablet) 1 gm PO BID [facility] Last Admin: 05/28/20 11:22 Dose: 1 gm Documented by: Metoprolol Tartrate (Metoprolol Tartrate 25 Mg Tablet) 25 mg PO BID [facility] Last Admin: 05/28/20 11:22 Dose: 25 mg Documented by: Mirtazapine (Mirtazapine 15 Mg Tablet) 15 mg PO QHS [facility] Last Admin: 05/27/20 22:05 Dose: 15 mg Documented by: Morphine Sulfate (Morphine 4 Mg/Ml Syringe) 4 mg IV Q3H PRN PRN PRN Reason: Pain Score 6-10 Last Admin: 05/28/20 10:21 Dose: 4 mg Documented by: Multivitamins/Minerals (Multivitamins,Ther W-Minerals Tablet) [facility] Last Admin: 05/28/20 08:54 Dose: 1 tablet Documented by: Nitroglycerin (Nitroglycerin (Inpatient Use) 0.4 Mg Tab.Subl) 0.4 mg SL Q5M PRN PRN Reason: CARDIAC/CHEST PAIN Nystatin (Nystatin Powder 15gm Bottle) 1 applic TOPICAL TID [facility]; Protocol Last Admin: 05/28/20 06:05 Dose: 1 applic Documented by: Ondansetron HCl (Ondansetron 4 Mg/2 Ml Vial) 4 mg IV Q8H PRN PRN PRN Reason: NAUSEA/VOMITING Last Admin: 05/27/20 09:27 Dose: 4 mg Documented by: Oxycodone HCl (Oxycodone 5 Mg Tablet) 5 mg PO Q4H PRN PRN PRN Reason: Pain Score 4-5 Last Admin: 05/28/20 08:56 Dose: 5 mg Documented by: Pantoprazole Sodium (Pantoprazole Sodium 40 Mg Tablet) 40 mg PO DAILY [facility] Last Admin: 05/28/20 11:21 Dose: 40 mg Documented by: Promethazine HCl (Promethazine 25 Mg Tablet) 25 mg PO Q4H PRN PRN PRN Reason: NAUSEA/VOMITING Sodium Chloride (0.9% Saline Lock 10 Ml Syringe) 10 - 40 ml IV UD PRN PRN Reason: SALINE FLUSH Last Admin: 05/28/20 10:21 Dose: 10 ml Documented by: Throat Lozenges (Benzocaine/Menthol 1 Lozenge) 1 lozenge MUCOUS MEM Q2H PRN PRN PRN Reason: SORE THROAT Medical Necessity - Tobacco Use Smoking Status: Never smoker Assessment/Plan All Active Problems (Last Reviewed 12/01/19 @ 11:02 by Altagracia Kinsey PA, PA) History of pulmonary embolus (PE) (Acute) History of DVT (deep vein thrombosis) (Acute) jail current use of anticoagulant (Acute) Urinary tract infection (Acute) Nondisplaced fracture of medial malleolus of right tibia, initial encounter for closed fracture (Acute) Elevated serum creatinine (Acute) Hypoxemia (Acute) Paroxysmal atrial fibrillation (Acute) Blister of right heel (Acute) Acute gastroenteritis (Resolved) Chest pain (Resolved) Dehydration (Resolved) Dyspnea, unspecified (Resolved) Elevated lactic acid level (Resolved) Fall (Resolved) Fatigue (Resolved) Metabolic encephalopathy (Resolved) Palpitations (Resolved) UTI (urinary tract infection) (Resolved) RECOMMENDATIONS: 1. Wean supplemental oxygen to maintain saturations at or above 90%. 2. Continue diuretic therapy as tolerated by hemodynamics and renal function. 3. Anticipate home-going supplemental oxygen need. 4. Okay to transfer to TCU from a pulmonary perspective. Patient should follow-up in pulmonary office 2 weeks after discharge from TCU 5. Records will be required prior to outpatient follow-up IMPRESSIONS: 1. Acute hypoxemic respiratory insufficiency Most likely secondary to underlying pulmonary hypertension with intracardiac shunt identified on echocardiogram. Shunt direction was right to left. Eisenmenger syndrome? This would certainly account for the patient's oxygen requirement. Unclear if patient's right-sided pressures are elevated secondary to longstanding hypoxia on exertion. Patient could have a right heart catheterization as an outpatient to evaluate for type II pulmonary hypertension. Patient is likely poor candidate for vasoactive medications given age and comorbidities. Anticipate supplemental oxygen requirement, especially with ambulation, for the perceivable future. Elevated pulmonary artery pressures/cor pulmonale may account for lower extremity edema. Cardiology is following. 2. Generalized weakness/debility status post mechanical fall Continue PT OT and pain management per hospitalist. Tentative plans for TCU disposition. 3. Advanced age and deconditioning/diabetes mellitus/history of atrial fibrillation/history of DVT/hypertension Complicates care, management, recovery and prognosis. Continue home medications as indicated. Inpatient E&M: 01900 Subs Hosp L2
--- NOTE | 2020-05-28 13:09 | PCM.TXEXTCAR ---
- Diet 05/24/20 09:11 Diet: Cardiac - Heart Healthy Food consistency:: Regular Liquid Consistency:: Regular/Thin Type of Dietary Supplement:: Glucerna Shake Is pt able to select menu?: No Fluid restriction:: 1500 mL Diet Comments: 120mL w/ meals - Routine Orders/Code Status Routine Lab Work: CBC - within 3 days, BMP - within 3 days Code Status: Full Code - Therapies Weight Bearing: Weight bearing as tolerated Physical Therapy: Eval and Treat Occupational Therapy: Eval and Treat - Allergies/Procedures Done in Hospital Allergies/Adverse Reactions: Allergies exenatide [From Byetta] Allergy (Verified 11/29/19 15:28) Unknown metformin Allergy (Verified 11/29/19 15:28) Rash Penicillins [PCN] Allergy (Verified 11/29/19 15:28) Unknown simvastatin [From Zocor] Adverse Reaction (Severe, Verified 11/29/19 15:28) Myalgias prednisone Adverse Reaction (Unknown, Verified 11/29/19 15:28) effects blood sugar amoxicillin [From Augmentin] Adverse Reaction (Verified 11/29/19 15:28) Diarrhea clavulanic acid [From Augmentin] Adverse Reaction (Verified 11/29/19 15:28) Diarrhea crestor Adverse Reaction (Intermediate, Uncoded 12/06/18 13:27) myalgia Procedures: 2-D Echocardiogram - Type of Care/Length of Stay Estimated LOS: Convalescent Care Less Than 30 days Type of Care Needed: Skilled Rehab Potential: Good Prognosis: Good - Additional Orders/Day of Discharge Day of Discharge: 05/28/20 - Dietary and Speech Recommendations Dietitian Recommendations/Changes: continue cardiac diet as tolerated; if PO intake at meals declines, recommend liberalize diet to regular no added salt; will add 120mL glucerna 4x/day for additional calories/protein if consumed; if pt w/ persistant hypergylcemia and/or adequate PO intake, recommend adding 1600 calorie controlled diet to cardiac diet order- will defer at this time until PO intake improves. - Follow Up Care Primary Care Physician: Saroj Fajardo DO [Primary Care Provider] - Please follow up with your Primary Care Physician in: within 2 weeks of discharge Please Follow Up With: Ismael Babb MD When: in 2 weeks Please Follow Up With: Chauncey Baradles MD When: in 2-4 weeks
--- NOTE | 2020-05-28 13:17 | PCM.DC.SUM ---
Discharge Date and Diagnosis - Problem List Patient Problems: Active and Suspected Problems (Last Reviewed 12/01/19 @ 11:02 by Altagracia GARNER, PA) snf current use of anticoagulant (Acute) Urinary tract infection (Acute) Nondisplaced fracture of medial malleolus of right tibia, initial encounter for closed fracture (Acute) Elevated serum creatinine (Acute) Hypoxemia (Acute) Date of Admission: 05/24/20 Date of Discharge: 05/28/20 - Primary Discharge Diagnosis Acute Problems: Active Problems (Last Reviewed 12/01/19 @ 11:02 by Altagracia GARNER, PA) Debility Mechanical fall Acute right ankle contusion vs fracture Acute UTI - Secondary Discharge Diagnosis Chronic Problems: Chronic Problems (Last Reviewed 12/01/19 @ 11:02 by Altagracia GARNER, PA) PFO (patent foramen ovale) (Chronic) Essential hypertension (Chronic) Pressure ulcer of right foot, unstageable (Chronic) Delayed wound healing (Chronic) Malnutrition (Chronic) CKD (chronic kidney disease) stage 3, GFR 30-59 ml/min (Chronic) Sick sinus syndrome (Chronic) Cardiomyopathy, nonischemic (Chronic) HLD (hyperlipidemia) (Chronic) Hypothyroidism (Chronic) Hypokalemia (Chronic) Chronic diastolic (congestive) heart failure (Chronic) Iron deficiency anemia (Chronic) GERD (gastroesophageal reflux disease) (Chronic) Cardiac pacemaker in situ (Chronic) DM2 (diabetes mellitus, type 2) (Chronic) CHF (congestive heart failure) (Chronic) Pulmonary hypertension (Chronic) Hospital Course and Treatment Imaging Results: Clinical Impression(s) from Imaging Studies Chest X-Ray 05/24/20 05:03 IMPRESSION: 1. No radiographic evidence of acute cardiopulmonary disease. 2. Osteoporosis with old compression fracture of the thoracic vertebral body. Electronically Signed: Nancy Stone MD at 6:25 EDT , Service support , Lumbar Spine X-Ray 05/24/20 05:04 IMPRESSION: 1. Osteoporosis. 2. 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 Electronically Signed: Nancy Stone MD at 6:21 EDT , Service support , Ankle X-Ray 05/24/20 05:05 IMPRESSION: 1. Moderately severe soft tissue swelling. 2. Osteoporosis. 3. No obvious acute fracture or dislocation. Electronically Signed: Nancy Stone MD at 6:08 EDT , Service support , Pelvis X-Ray 05/24/20 05:05 IMPRESSION: 1. Metallic foreign body is visible in the right pelvis. 2. Osteoporosis. Electronically Signed: Nancy Stone MD at 6:16 EDT , Service support , Chest X-Ray 05/24/20 22:50 IMPRESSION: No acute findings. Electronically Signed: Gypsy Oneill MD at 23:24 EDT Tel , Service support , Echocardiogram 05/25/20 12:43 Interpretation Summary The study was technically difficult. Left ventricular systolic function is normal. The estimated ejection fraction is 60 %. Septal motion consistent with IVCD. Mildly dilated right ventricle. Mild global right ventricular systolic dysfunction. The right atrium is mildly enlarged. Aneurysmal atrial septum. There is mild to moderate mitral annular calcification. Extension of the mitral annular calcification on the base of the posterior mitral valve leaflet. Trivial mitral valve insufficiency. Moderate (2+) tricuspid valve insufficiency. Mild diffuse aortic valve thickening. Right ventricular systolic pressure estimated to be 72 mmHg. Severe pulmonary hypertension. Unable to assess diastolic dysfunction. Agitated saline contrast study considered faintly positive for a right to left interatrial shunt compatible with a small PFO versus ASD. Ordering Physician: Marianne Pena Referring Physician: Saroj Fajardo Performed By: Denny Nayak RCS Cardiology Pulmonology Operations: None, - Procedures: 2-D Echocardiogram Summary of Care Provided: The patient is a 85 year old F multiple comorbidities who was admitted after a fall. Patient tripped after her walker went out in front of her. She lost her balance fell backwards. She denied any symptoms prior to that. She had right ankle pain after the fall. Her vitals in the ED were stable except for hypoxia. She also had elevated creatinine. X-ray of the right ankle showed moderately severe soft tissue swelling with no obvious fracture. Her other work-up was suggestive of acute UTI. Urine culture shows mixed growth. Blood cultures were negative. She was managed on IV ceftriaxone and transitioned to Levaquin. She was found to be hypoxic; her BNPep was elevated at 779.7. 2D echo showed for 60%, class II tricuspid valve insufficiency, severe pulmonary retention, RVSP is 72, small PFO. Cardiology and pulmonology were consulted. Patient follows with Dr. Ray outpatient. She was managed on IV Lasix and transition to oral Lasix. She was discharged to the transitional care unit on oxygen. She will follow up in 2 weeks with pulmonology and cardiology. Patient Problems: Active and Suspected Problems (Last Reviewed 12/01/19 @ 11:02 by Altagracia GARNER, PA) snf current use of anticoagulant (Acute) Urinary tract infection (Acute) Nondisplaced fracture of medial malleolus of right tibia, initial encounter for closed fracture (Acute) Elevated serum creatinine (Acute) Hypoxemia (Acute) Subjective: On the day of discharge, patient was seen and examined. She complained of pain in the right low back region Objective: Physical exam: General: Alert, Oriented x3, Cooperative, No apparent distress, Well developed HEENT: Atraumatic Oral: Moist Mucosa Neck: Supple Lungs: Clear to auscultation Cardiovascular: HS I+II, regular, no murmurs Abdomen: Bowel Sounds Present, Soft, Non Tender Extremities: No edema Skin: No rashes, No breakdown Neurological: Grossly intact Psych/Mental Status: Appropriate - Physical Exam Vitals/I&O's: Vital Signs Temp Pulse Resp BP Pulse Ox 98.0 F 83 18 120/69 94 05/28/20 08:57 05/28/20 11:22 05/28/20 08:57 05/28/20 08:57 05/28/20 10:53 Oxygen Flow Rate (L/min) 3 Oxygen Delivery Method Nasal Cannula Weight: 73.4 kg Body Mass Index (BMI) 23.8 Finger Stick Blood Glucose 276 Intake and Output for Last 24 Hours 05/26/20 05/27/20 05/28/20 23:59 23:59 23:59 Intake Total 590 / 590 400 / 400 100 / 100 Output Total 500 / 500 900 / 900 400 / 400 Balance 90 / 90 -500 / -500 -300 / -300 Microbiology Past 72 Hours 05/24/20 09:38 Blood Culture (Wb) - Left Hand Blood Culture - Preliminary No growth in 48 hours. 05/24/20 09:32 Blood Culture (Wb) - Anticubital Left Blood Culture - Preliminary No growth in 48 hours. 05/24/20 06:49 Urine, Clean Catch Urine Culture - Final Mixed Gram Positive Organisms 05/25/20 10:20 Mucosa - Nose SARS-CoV-2 Antigen (Rapid) - Final Laboratory Results 05/28/20 05:36: WBC 9.7, RBC 5.33, Hgb 15.3 H, Hct 47.5 H, MCV 89.1, MCH 28.7, MCHC 32.2, RDW Std Deviation 46.8 H, RDW Coeff of Rema 14.6, Plt Count 109 L, MPV 11.5, Immature Gran % (Auto) 0.600, Neut % (Auto) 81.2 H, Lymph % (Auto) 8.4 L, [place] % (Auto) 9.4, Eos % (Auto) 0.2, Baso % (Auto) 0.2, Absolute Neuts (auto) 7.9 H, Absolute Lymphs (auto) 0.81 L, Nucleated RBC % 0 05/28/20 05:36: Sodium 141, Potassium 3.7, Chloride 104, Carbon Dioxide 32.0, Anion Gap 5, BUN 43 H, Creatinine 0.99, Estim Creat Clear Calc 43.42, Est GFR (MDRD) Af Amer 69, Est GFR (MDRD) Non-Af 57 L, BUN/Creatinine Ratio 43.5 H, Glucose 220 H, Calcium 9.3 Current Medications Acetaminophen (Acetaminophen 500 Mg Tablet) 1,000 mg PO Q6H PRN PRN PRN Reason: Pain Score 1-3 Last Admin: 05/28/20 03:14 Dose: 1,000 mg Documented by: Acetaminophen (Acetaminophen 325 Mg Tablet) 650 mg PO Q6H PRN PRN PRN Reason: Temp > 100.7 F Last Admin: 05/26/20 12:46 Dose: 650 mg Documented by: Apixaban (Apixaban 5 Mg Tablet) 5 mg PO BID@0800,1700 [facility] Last Admin: 05/28/20 08:54 Dose: 5 mg Documented by: Ascorbic Acid (Ascorbic Acid 500 Mg Tablet) 500 mg PO DAILY [facility] Last Admin: 05/28/20 11:21 Dose: 500 mg Documented by: Calamine/Phenol (Menthol/Lanolin/Calamine/Znox 113 Gm Tube) 1 applic TOPICAL BID [facility]; Protocol Last Admin: 05/27/20 22:06 Dose: 1 applic Documented by: Digoxin (Digoxin 125 Mcg Tablet) 125 mcg PO DAILY [facility] Last Admin: 05/28/20 11:22 Dose: 125 mcg Documented by: Escitalopram Oxalate (Escitalopram Oxalate 10 Mg Tablet) 10 mg PO DAILY [facility] Last Admin: 05/28/20 11:22 Dose: 10 mg Documented by: Febuxostat (Febuxostat 40 Mg Tablet) 80 mg PO DAILY [facility] Last Admin: 05/27/20 09:36 Dose: 80 mg Documented by: Furosemide (Furosemide 40 Mg Tablet) 40 mg PO BID@1000,1800 [facility] Last Admin: 05/28/20 11:22 Dose: 40 mg Documented by: Levofloxacin (Levofloxacin 750 Mg Tablet) 750 mg PO Q48@0600 [facility] Stop: 06/03/20 06:01 Last Admin: 05/28/20 06:05 Dose: 750 mg Documented by: Lidocaine (Lidocaine 5% Patch) 2 patch TOPICAL DAILY [facility]; Protocol Linagliptin (Linagliptin 5 Mg Tablet) 5 mg PO DAILY [facility] Last Admin: 05/28/20 11:21 Dose: 5 mg Documented by: Magnesium Hydroxide (Magnesium Hydroxide 30 Ml Udc) 15 ml PO BID [facility] Last Admin: 05/28/20 11:26 Dose: 15 ml Documented by: Melatonin (Melatonin 3 Mg Tablet) 6 mg PO QHS [facility] Last Admin: 05/27/20 22:06 Dose: 6 mg Documented by: Methenamine Hippurate (Methenamine Hippurate 1 Gm Tablet) 1 gm PO BID [facility] Last Admin: 05/28/20 11:22 Dose: 1 gm Documented by: Metoprolol Tartrate (Metoprolol Tartrate 25 Mg Tablet) 25 mg PO BID [facility] Last Admin: 05/28/20 11:22 Dose: 25 mg Documented by: Mirtazapine (Mirtazapine 15 Mg Tablet) 15 mg PO QHS [facility] Last Admin: 05/27/20 22:05 Dose: 15 mg Documented by: Morphine Sulfate (Morphine 4 Mg/Ml Syringe) 4 mg IV Q3H PRN PRN PRN Reason: Pain Score 6-10 Last Admin: 05/28/20 10:21 Dose: 4 mg Documented by: Multivitamins/Minerals (Multivitamins,Ther W-Minerals Tablet) [facility] Last Admin: 05/28/20 08:54 Dose: 1 tablet Documented by: Nitroglycerin (Nitroglycerin (Inpatient Use) 0.4 Mg Tab.Subl) 0.4 mg SL Q5M PRN PRN Reason: CARDIAC/CHEST PAIN Nystatin (Nystatin Powder 15gm Bottle) 1 applic TOPICAL TID [facility]; Protocol Last Admin: 05/28/20 06:05 Dose: 1 applic Documented by: Ondansetron HCl (Ondansetron 4 Mg/2 Ml Vial) 4 mg IV Q8H PRN PRN PRN Reason: NAUSEA/VOMITING Last Admin: 05/27/20 09:27 Dose: 4 mg Documented by: Oxycodone HCl (Oxycodone 5 Mg Tablet) 5 mg PO Q4H PRN PRN PRN Reason: Pain Score 4-5 Last Admin: 05/28/20 08:56 Dose: 5 mg Documented by: Pantoprazole Sodium (Pantoprazole Sodium 40 Mg Tablet) 40 mg PO DAILY [facility] Last Admin: 05/28/20 11:21 Dose: 40 mg Documented by: Promethazine HCl (Promethazine 25 Mg Tablet) 25 mg PO Q4H PRN PRN PRN Reason: NAUSEA/VOMITING Sodium Chloride (0.9% Saline Lock 10 Ml Syringe) 10 - 40 ml IV UD PRN PRN Reason: SALINE FLUSH Last Admin: 05/28/20 10:21 Dose: 10 ml Documented by: Throat Lozenges (Benzocaine/Menthol 1 Lozenge) 1 lozenge MUCOUS MEM Q2H PRN PRN PRN Reason: SORE THROAT Discharge Diet: Low fat/ Low Cholesterol, 8 Cup Fluid Restriciton, 2000 mg Sodium Diet Discharge Activity: Return to Normal Activity Home Medications: Medications to take at Discharge Apixaban [Eliquis] 5 mg PO BID 04/30/18 Ascorbic Acid [Vitamin C] 500 mg PO DAILY 08/18/18 Febuxostat [Uloric] 80 mg PO DAILY 08/18/18 Melatonin 6 mg PO QHS 08/18/18 Pantoprazole Sodium [Protonix] 40 mg PO DAILY 08/18/18 Digoxin 125 mcg PO DAILY 09/06/18 Metoprolol Tartrate [Lopressor (beta chanel)] 25 mg PO BID 09/06/18 Mirtazapine 15 mg PO QHS 09/06/18 Multivitamin with Minerals [Multiple Vitamin] 1 tab PO DAILY 09/06/18 Acetaminophen [Tylenol] 1,000 mg PO Q6H PRN PRN tab 09/30/18 sitagliptin 100 mg tablet 100 mg PO DAILY 11/29/19 Cranberry Conc/Ascorbic Acid [Cranberry Plus Vitamin C Sftgl] 2 each PO BID 05/24/20 Escitalopram Oxalate [Lexapro] 10 mg PO DAILY 05/24/20 Methenamine Hippurate [Hiprex] 1 gm PO BID 05/24/20 Furosemide [Lasix] 40 mg PO BID@1000,1800 tablet 05/28/20 Lidocaine [Lidoderm Patch] 2 patch TOPICAL DAILY patch 05/28/20 Menthol/Lanolin/Calamine/Znox [Calmoseptine Ointment] 1 applic TOPICAL BID tube 05/28/20 levoFLOXacin tablet [Levaquin tablet] 750 mg PO Q48@0600 2 Days #1 tablet 05/28/20 Primary Care Physician: Saroj Fajardo DO [Primary Care Provider] - Please follow up with your Primary Care Physician in: within 2 weeks of discharge Please Follow Up With: Ismael Babb MD When: in 2 weeks Please Follow Up With: Chauncey Bardales MD When: in 2-4 weeks Disposition: Care Home facility Minutes spent on discharge:: 45 Patient Condition:: Stable Medical Necessity - Tobacco Use Smoking Status: Never smoker Tobacco Use: Non-smoker Meaningful Use Info Meaningful Use Diagnoses (Choose all that apply): CHF - CHF ALVINA/ARB ordered at discharge?: Yes Documented LVEF (%): 60 Inpatient E&M: 91020 Disch Hosp
[2020-05-28] MEDS: Febuxostat 40 MG TABLET 80 MG PO (14:46)
[2020-05-28] MEDS: Menthol/Lanolin/Calamine/Znox 113 GM Tube 1 APPLIC TOPICAL (14:46)
--- NOTE | 2020-05-28 15:35 | PHA.DC.MR ---
Pharmacy Service has performed discharge medication reconciliation for this patient. This [facility] spoke with Dr. Larkin regarding duplicate furosemide orders. Dr. Larkin d/c'ed the 20mg order, would like to keep 40mg BID. She will notify nurse on MS3. The patient's discharge medication list was reviewed for discrepancies and discrepancies were resolved. Home Medications Apixaban [Eliquis] 5 mg PO BID 04/30/18 Ascorbic Acid [Vitamin C] 500 mg PO DAILY 08/18/18 Febuxostat [Uloric] 80 mg PO DAILY 08/18/18 Melatonin 6 mg PO QHS 08/18/18 Pantoprazole Sodium [Protonix] 40 mg PO DAILY 08/18/18 Digoxin 125 mcg PO DAILY 09/06/18 Metoprolol Tartrate [Lopressor (beta chanel)] 25 mg PO BID 09/06/18 Mirtazapine 15 mg PO QHS 09/06/18 Multivitamin with Minerals [Multiple Vitamin] 1 tab PO DAILY 09/06/18 Acetaminophen [Tylenol] 1,000 mg PO Q6H PRN PRN tab 09/30/18 sitagliptin 100 mg tablet 100 mg PO DAILY 11/29/19 Cranberry Conc/Ascorbic Acid [Cranberry Plus Vitamin C Sftgl] 2 each PO BID 05/24/20 Escitalopram Oxalate [Lexapro] 10 mg PO DAILY 05/24/20 Methenamine Hippurate [Hiprex] 1 gm PO BID 05/24/20 Furosemide [Lasix] 40 mg PO BID@1000,1800 tablet 05/28/20 Lidocaine [Lidoderm Patch] 2 patch TOPICAL DAILY patch 05/28/20 Menthol/Lanolin/Calamine/Znox [Calmoseptine Ointment] 1 applic TOPICAL BID tube 05/28/20 levoFLOXacin tablet [Levaquin tablet] 750 mg PO Q48@0600 2 Days #1 tablet 05/28/20
== END 2020-05-28 16:05 | disposition skilled nursing facility (03) | DRG 689 ==
LOC: ED 07:24 → MS3 07:52
PROVIDERS: Admitting Provider Student in an Organized Health Care Education/Training Program; Emergency Provider Emergency Medicine; PCP Family Medicine; Visit Provider Internal Medicine
DX: N39.0 Urinary tract infection, site not specified (principal); I50.33 Acute on chronic diastolic (congestive) heart failure; I13.0 Hypertensive heart and chronic kidney disease with heart failure and stage 1 through stage 4 chronic kidney disease, or unspecified chronic kidney disease; I42.8 Other cardiomyopathies; R06.89 Other abnormalities of breathing; R09.02 Hypoxemia; E11.22 Type 2 diabetes mellitus with diabetic chronic kidney disease; N18.31 Chronic kidney disease, stage 3a; I48.0 Paroxysmal atrial fibrillation; I27.29 Other secondary pulmonary hypertension; M25.471 Effusion, right ankle; S82.54XA Nondisplaced fracture of medial malleolus of right tibia, initial encounter for closed fracture; E78.5 Hyperlipidemia, unspecified; E03.9 Hypothyroidism, unspecified; I49.5 Sick sinus syndrome; Z20.822 Contact with and (suspected) exposure to COVID-19; W01.10XA Fall on same level from slipping, tripping and stumbling with subsequent striking against unspecified object, initial encounter; Y93.01 Activity, walking, marching and hiking; Y92.9 Unspecified place or not applicable; Y99.9 Unspecified external cause status; M10.9 Gout, unspecified; M81.0 Age-related osteoporosis without current pathological fracture; F32.9 Major depressive disorder, single episode, unspecified; K21.9 Gastro-esophageal reflux disease without esophagitis; F41.9 Anxiety disorder, unspecified; Z79.01 Long term (current) use of anticoagulants; Z79.899 Other long term (current) drug therapy; Z86.718 Personal history of other venous thrombosis and embolism; Z86.711 Personal history of pulmonary embolism; Z95.0 Presence of cardiac pacemaker; Z96.653 Presence of artificial knee joint, bilateral
CPT/HCPCS: 36415; 71046; 72100; 72170; 73610; 80048; 81001; 82962; 83880; 85025; 87040; 87086; 87088; 87426; 93306; 97110; 97162; 97166; 97530; 97535; 97802; 99285; J7030; J7050; Q9957; A4216; J1940; J2405

== ENCOUNTER 2020-05-28 16:17 | Inpatient (IN) | payer MEDICARE, SELFPAY ==
[2020-05-24 08:18] VITALS: BMI 23.8
[2020-05-28 16:17] VITALS: BP 121/70; PULSE 79; RESP 18; TEMP 36.7; O2SAT 91
[2020-05-28] MEDS: APIXABAN 5 MG TABLET PO (18:14)
[2020-05-28 18:15] VITALS: O2SAT 88
[2020-05-28] MEDS: Furosemide 40 MG Tablet PO (18:16)
[2020-05-28] MEDS: Menthol/Lanolin/Calamine/Znox 113 GM Tube 1 APPLIC TOPICAL (18:16)
[2020-05-28 18:17] VITALS: PULSE 73
[2020-05-28] MEDS: Methenamine Hippurate 1 GM Tablet PO (18:17)
[2020-05-28] MEDS: Metoprolol Tartrate 25 MG Tablet PO (18:17)
[2020-05-28] MEDS: Nystatin Ointment 1 APPLIC TOPICAL (18:17)
[2020-05-28 18:20] VITALS: O2SAT 93
[2020-05-28] MEDS: Bisacodyl 5 MG Tablet PO (18:53)
[2020-05-28 19:37] VITALS: BMI 24.7
[2020-05-28 20:00] VITALS: BMI 24.7
[2020-05-28] MEDS: Acetaminophen 500 MG Tablet 1000 MG PO (20:36)
[2020-05-28] MEDS: 0.9% Saline Lock 10 ML Syringe IV (20:37)
[2020-05-28 21:26] LABS: Bedside Glucose 262 mg/dL (70-110)
[2020-05-28] MEDS: Mirtazapine 15 MG Tablet PO (22:19)
[2020-05-28] MEDS: MELATONIN 3 MG TABLET 6 MG PO (22:20)
[2020-05-29] VITALS (7 sets, daily range): BP systolic 115–161; BP diastolic 58–83; PULSE 59–78; RESP 18; TEMP 36.4–36.6; O2SAT 90–98
[2020-05-29 06:08] LABS: Absolute Lymphocyte Count 1.23 X10^3/uL (0.83-4.51); Absolute Neutrophil Count 7.1 X10^3/uL (2.0-7.7); Basophil# 0.02 X10^3/uL; Basophil% 0.2 % (0-1); Eosinophil# 0.13 X10^3/uL; Eosinophils% 1.4 % (0-5); Hematocrit 46.6 % (37-47); Hemoglobin 14.3 g/dL (12.0-15.0); Lymphocyte # 1.23 X10^3/ul (4.0); Lymphocyte % 12.9 % (19-41); Mean Corp Hgb Conc 30.7 g/dL (32-36); Mean Corpuscular Hgb 27.5 pg (27.0-32.0); Mean Corpuscular Volume 89.6 fL (81-99); Mean Platelet Vol. 11.4 fl (6.2-12.0); Monocyte# 1.01 X10^3/uL; Monocyte% 10.6 % (0-10); NRBC Flagged by Analyzer 0 % (0-5); Neutrophil # 7.08 X10^3/uL (2.7-7.7); Neutrophil % 74.3 % (47-70); Platelet Count 112 K/mm3 (150-450); RBC Distribution Width CV 14.8 % (11.6-14.6); RBC Distribution Width SD 48.3 fl (35.1-43.9); White Blood Count 9.5 K/mm3 (4.4-11.0)
[2020-05-29] MEDS: Menthol/Lanolin/Calamine/Znox 113 GM Tube 1 APPLIC TOPICAL ×2 (06:12→17:22)
[2020-05-29] MEDS: Lidocaine 5% Patch 2 PATCH TOPICAL (06:12)
[2020-05-29] MEDS: Escitalopram Oxalate 10 MG Tablet PO (06:13)
[2020-05-29] MEDS: Metoprolol Tartrate 25 MG Tablet PO ×2 (06:13→17:23)
[2020-05-29] MEDS: Febuxostat 40 MG TABLET 80 MG PO (06:13)
[2020-05-29] MEDS: Methenamine Hippurate 1 GM Tablet PO ×2 (06:13→17:21)
[2020-05-29] MEDS: Ascorbic Acid 500 MG Tablet PO (06:13)
[2020-05-29] MEDS: LINAGLIPTIN 5 MG TABLET PO (06:13)
[2020-05-29] MEDS: Senna/Docusate Sodium 1 Tablet 2 TABLET PO (06:14)
[2020-05-29] MEDS: Pantoprazole Sodium 40 MG Tablet PO (06:14)
[2020-05-29] MEDS: Nystatin Ointment 1 APPLIC TOPICAL (06:15)
[2020-05-29] MEDS: Digoxin 125 MCG Tablet PO (06:15)
[2020-05-29] MEDS: Acetaminophen 500 MG Tablet 1000 MG PO ×2 (06:18→17:19)
[2020-05-29 06:26] LABS: Bedside Glucose 155 mg/dL (70-110)
[2020-05-29 06:30] LABS: Anion Gap 3 (5-15); BUN 52 mg/dL (7-18); BUN/Creat Ratio 44.1 RATIO (10-20); Calcium,Total 9.3 mg/dL (8.5-10.1); Chloride 101 mmol/L (98-107); Creatinine, Serum 1.18 mg/dL (0.55-1.02); EST Glomerular Filtration Rate 46 mL/min (>60); Est Glom Filt Rate - Afr Amer 56 mL/min (>60); Glucose 168 mg/dL (74-106); Potassium 4.3 mmol/L (3.5-5.1); Sodium Level 140 mmol/L (136-145)
[2020-05-29] MEDS: Furosemide 40 MG Tablet PO ×2 (09:39→17:21)
[2020-05-29] MEDS: Multivitamins,Ther W-Minerals Tablet 1 TABLET PO (09:39)
[2020-05-29] MEDS: APIXABAN 5 MG TABLET PO ×2 (09:40→17:22)
[2020-05-29] MEDS: Magnesium Citrate 300 ML PO (11:04)
[2020-05-29] MEDS: Bisacodyl 10 MG Suppository RC (11:32)
--- NOTE | 2020-05-29 11:38 | NURSING ---
Pt last BM 05/25 pt c/o of nausea and feeling bloated. Dr. Mcfarlane Updated and new orders for Mag Citrate and Dulcolax Suppository.
[2020-05-29] MEDS: Tuberculin,Purif.prot.deriv. 50 TU/ML Vial 5 ML ID (11:43)
--- NOTE | 2020-05-29 15:36 | CASEMGMT ---
Social Work SW met w/pt, spoke w/her regarding code status and reviewed MOLST form. SW will review again w/pt to ensure her wishes are known, as pt has displayed mild confusion today. JANEEN Gonzalez
--- NOTE | 2020-05-29 16:10 | NURSING ---
Talked with pt's son to update on pt. Suggested that he bring in a favorite food or snack for pt d/t decreased appetite son agreed.
[2020-05-29] MEDS: Nystatin Powder 15gm Bottle 1 APPLIC TOPICAL (17:21)
[2020-05-29] MEDS: traMADol 50 MG Tablet 25 MG PO (20:07)
[2020-05-29] MEDS: Ondansetron ODT 4 MG Tablet PO (20:08)
[2020-05-29] MEDS: 0.9% Saline Lock 10 ML Syringe IV (20:10)
[2020-05-29] MEDS: Mirtazapine 15 MG Tablet PO (20:29)
[2020-05-29] MEDS: MELATONIN 3 MG TABLET 6 MG PO (20:29)
[2020-05-29 21:55] LABS: Bedside Glucose 231 mg/dL (70-110)
[2020-05-30] VITALS (8 sets, daily range): BP systolic 123–161; BP diastolic 66–100; PULSE 72–83; RESP 18; TEMP 36.1–36.9; O2SAT 91–94
[2020-05-30] MEDS: Menthol/Lanolin/Calamine/Znox 113 GM Tube 1 APPLIC TOPICAL ×2 (06:12→17:23)
[2020-05-30] MEDS: LINAGLIPTIN 5 MG TABLET PO (06:13)
[2020-05-30] MEDS: Methenamine Hippurate 1 GM Tablet PO ×2 (06:14→17:23)
[2020-05-30] MEDS: levoFLOXacin 750 MG Tablet PO (06:14)
[2020-05-30] MEDS: Senna/Docusate Sodium 1 Tablet 2 TABLET PO (06:14)
[2020-05-30] MEDS: Ascorbic Acid 500 MG Tablet PO (06:14)
[2020-05-30] MEDS: Metoprolol Tartrate 25 MG Tablet PO ×2 (06:14→17:23)
[2020-05-30] MEDS: Febuxostat 40 MG TABLET 80 MG PO (06:14)
[2020-05-30] MEDS: Pantoprazole Sodium 40 MG Tablet PO (06:15)
[2020-05-30] MEDS: Escitalopram Oxalate 10 MG Tablet PO (06:15)
[2020-05-30] MEDS: Digoxin 125 MCG Tablet PO (06:16)
[2020-05-30] MEDS: Lidocaine 5% Patch 2 PATCH TOPICAL (06:17)
[2020-05-30] MEDS: Nystatin Powder 15gm Bottle 1 APPLIC TOPICAL ×2 (06:18→17:23)
[2020-05-30 06:21] LABS: Bedside Glucose 209 mg/dL (70-110)
[2020-05-30] MEDS: traMADol 50 MG Tablet 25 MG PO ×2 (06:49→13:27)
[2020-05-30] MEDS: Ondansetron ODT 4 MG Tablet PO (06:50)
[2020-05-30] MEDS: APIXABAN 5 MG TABLET PO ×2 (08:42→17:23)
[2020-05-30] MEDS: Multivitamins,Ther W-Minerals Tablet 1 TABLET PO (08:42)
[2020-05-30] MEDS: Acetaminophen 500 MG Tablet 1000 MG PO ×3 (08:47→22:45)
[2020-05-30] MEDS: Furosemide 40 MG Tablet PO (09:55)
--- NOTE | 2020-05-30 10:17 | HP.PCM_ITS ---
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 BNP was elevated but she has stage 3 CRF and pulmonary HTN (9) PFO (patent foramen ovale) Status: Chronic Comment: small (10) Paroxysmal atrial fibrillation Status: Chronic (11) Essential hypertension Status: Chronic (12) Pressure ulcer of right foot, unstageable Status: Chronic (13) Delayed wound healing Status: Chronic (14) Malnutrition Status: Chronic (15) CKD (chronic kidney disease) stage 3, GFR 30-59 ml/min Status: Chronic Qualifiers: Chronic kidney disease stage 3 subtype: stage 3a (GFR 45-59) Qualified Code(s): N18.31 - Chronic kidney disease, stage 3a (16) Blister of right heel Status: Resolved (17) Sick sinus syndrome Status: Chronic (18) Cardiomyopathy, nonischemic Status: Chronic (19) HLD (hyperlipidemia) Status: Chronic Qualifiers: (20) Hypothyroidism Status: Chronic Qualifiers: (21) Hypokalemia Status: Resolved (22) Chronic diastolic (congestive) heart failure Status: Chronic (23) Iron deficiency anemia Status: Chronic Qualifiers: (24) GERD (gastroesophageal reflux disease) Status: Chronic (25) Cardiac pacemaker in situ Status: Chronic (26) DM2 (diabetes mellitus, type 2) Status: Chronic (27) Pulmonary hypertension Status: Chronic Comment: PA systolic in May of 2020 is 72 with global systolic dysfunction of the RV, RV dilation and R atrial enlargment (28) Dehydration Status: Acute (29) Metabolic alkalosis Status: Acute Comment: Secondary to volume contraction. (30) Sciatica of right side Status: Acute (31) Acute renal failure superimposed on stage 3a chronic kidney disease Status: Acute (32) Osteoarthritis Status: Acute (33) Depression Status: Acute History of Present Illness Date of Admission: 05/30/20 Chief Complaint: debility due to a fall with R ankle sprain? or to a vertebral fracture? The patient is a 85 year old F with a past medical history of hypertension, malnutrition, chronic renal failure stage III, sick sinus syndrome, hyperlipidemia, hypothyroidism, chronic diastolic congestive heart failure, iron deficiency anemia, GERD, pacemaker placement, diabetes mellitus type 2, pulmonary hypertension and severe kyphosis who presented to the emergency room at [facility] on 05/24/2020 after a fall. She did not pass out she just lost her balance and fell backwards. She complained of right ankle pain. An x-ray of the right ankle showed moderately severe soft tissue swelling with no obvious fracture or dislocation. X-ray of the pelvis showed no fracture. She was admitted to the hospital for pain control and evaluation by PT/OT. While in the hospital her BNP was elevated at 779. Echocardiogram showed a 60% left ventricular ejection fraction with tricuspid regurgitation, severe pulmonary hypertension with an RV pressure estimated at 72 and a small PFO. She was given IV Lasix and eventually transition to oral Lasix. She was ultimately transferred to the transitional care unit on oxygen for rehabilitation/strengthening. On the chest x-ray at admission there was mention of a thoracic compression fracture. Review of a spine x-ray done in 2015 did not mention a vertebral fracture at that time. She has severe demineralization of the spine. To me she is c/o pain in the R lateral hip and buttock. She has increased pain with straight leg raising and she has some spasm of the R hamstring. [] Past Medical History Past Medical History (Chronic Problems): Chronic Problems (Last Updated 05/28/20 @ 15:[address] 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 (Chronic) Apixaban PFO (patent foramen ovale) (Chronic) small Paroxysmal atrial fibrillation (Chronic) Essential hypertension (Chronic) Pressure ulcer of right foot, unstageable (Chronic) Delayed wound healing (Chronic) Malnutrition (Chronic) CKD (chronic kidney disease) stage 3, GFR 30-59 ml/min (Chronic) Sick sinus syndrome (Chronic) Cardiomyopathy, nonischemic (Chronic) HLD (hyperlipidemia) (Chronic) Hypothyroidism (Chronic) Chronic diastolic (congestive) heart failure (Chronic) Iron deficiency anemia (Chronic) GERD (gastroesophageal reflux disease) (Chronic) Cardiac pacemaker in situ (Chronic) DM2 (diabetes mellitus, type 2) (Chronic) Pulmonary hypertension (Chronic) PA systolic in May of 2020 is 72 with global systolic dysfunction of the RV, RV dilation and R atrial enlargment Medical History: Medical History (Last Reviewed 06/01/20 @ 18:[address] Queenie Mcfarlane, DO) Paroxysmal atrial fibrillation (Chronic) I48.0 Essential hypertension (Chronic) I10 Sick sinus syndrome (Chronic) I49.5 Cardiomyopathy, nonischemic (Chronic) I42.8 HLD (hyperlipidemia) (Chronic) E78.5 Hypothyroidism (Chronic) E03.9 Hypokalemia (Resolved) E87.6 Chronic diastolic (congestive) heart failure (Chronic) I50.32 Iron deficiency anemia (Chronic) D50.9 GERD (gastroesophageal reflux disease) (Chronic) K21.9 Cardiac pacemaker in situ (Chronic) Z95.0 DM2 (diabetes mellitus, type 2) (Chronic) E11.9 Pulmonary hypertension (Chronic) I27.2 PA systolic in May of 2020 is 72 with global systolic dysfunction of the RV, RV dilation and R atrial enlargment Acute kidney injury N17.9 Chronic diarrhea K52.9 Cystitis N30.90 Dementia F03.90 Depression F32.9 Encephalopathy G93.40 Gout M10.9 Postoperative anemia D64.9 Atrophic vaginitis N95.2 Depression F32.9 Gout M10.9 Acute deep vein thrombosis (DVT) of left lower extremity I82.402 Acute kidney injury N17.9 Debility R53.81 Diarrhea R19.7 Edema R60.9 Fracture of right femur S72.91XA Hypotension I95.9 Syncope and collapse R55 UTI (urinary tract infection) N39.0 Ulcer of right heel and midfoot, limited to breakdown of skin L97.411 Viral gastroenteritis A08.4 Acute kidney injury (Inactive) N17.9 Afib (Inactive) I48.91 Chronic diarrhea (Inactive) K52.9 Cystitis (Inactive) N30.90 no culture obtained DVT of axillary vein, acute left (Inactive) I82.A12 Dementia (Inactive) F03.90 Depression (Inactive) F32.9 Diarrhea (Inactive) R19.7 Dvt femoral (deep venous thrombosis) (Inactive) I82.419 left leg Encephalopathy (Inactive) G93.40 Fall (Inactive) W19.XXXA Gout (Inactive) M10.9 Muscle spasm (Inactive) M62.838 Pacemaker (Inactive) Z95.0 Postoperative anemia (Inactive) D64.9 Thrush (Inactive) B37.0 Allergies exenatide [From Byetta] Allergy (Verified 11/29/19 15:28) Unknown metformin Allergy (Verified 11/29/19 15:28) Rash Penicillins [PCN] Allergy (Verified 11/29/19 15:28) Unknown simvastatin [From Zocor] Adverse Reaction (Severe, Verified 11/29/19 15:28) Myalgias prednisone Adverse Reaction (Unknown, Verified 11/29/19 15:28) effects blood sugar amoxicillin [From Augmentin] Adverse Reaction (Verified 11/29/19 15:28) Diarrhea clavulanic acid [From Augmentin] Adverse Reaction (Verified 11/29/19 15:28) Diarrhea crestor Adverse Reaction (Intermediate, Uncoded 12/06/18 13:27) myalgia Home Medications: Ambulatory Orders Medication Instructions Recorded Apixaban [Eliquis] 5 mg PO BID 04/30/18 Ascorbic Acid [Vitamin C] 500 mg PO DAILY 08/18/18 Febuxostat [Uloric] 80 mg PO DAILY 08/18/18 Melatonin 6 mg PO QHS 08/18/18 Pantoprazole Sodium [Protonix] 40 mg PO DAILY 08/18/18 Digoxin 125 mcg PO DAILY 09/06/18 Metoprolol Tartrate [Lopressor 25 mg PO BID 09/06/18 (beta chanel)] Mirtazapine 15 mg PO QHS 09/06/18 Multivitamin with Minerals 1 tab PO DAILY 09/06/18 [Multiple Vitamin] Acetaminophen [Tylenol] 1,000 mg PO Q6H PRN PRN tab 09/30/18 sitagliptin 100 mg tablet 100 mg PO DAILY 11/29/19 Cranberry Conc/Ascorbic Acid 2 each PO BID 05/24/20 [Cranberry Plus Vitamin C Sftgl] Escitalopram Oxalate [Lexapro] 10 mg PO DAILY 05/24/20 Methenamine Hippurate [Hiprex] 1 gm PO BID 05/24/20 Furosemide [Lasix] 40 mg PO BID@1000,1800 05/28/20 Lidocaine [Lidoderm Patch] 2 patch TOPICAL DAILY 05/28/20 Menthol/Lanolin/Calamine/Znox 1 applic TOPICAL BID 05/28/20 [Calmoseptine Ointment] levoFLOXacin tablet [Levaquin 750 mg PO Q48@0600 05/28/20 tablet] Surgical History: Surgical History (Last Reviewed 06/01/20 @ 18:[address] Queenie Mcfarlane DO) H/O: hysterectomy Z90.710 History of bilateral knee replacement Z96.653 History of cholecystectomy Z90.49 Presence of vena cava filter Z95.828 implantation pacemakr pacemaker generator change Surgical History: cholecystectomy, hysterectomy, pacemaker implantation, total knee arthroplasty - Bilateral., - - IVC filter, right hip fracture repair. 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 Queenie Mcfarlane DO) Father Myocardial infarction History Items: Heart Disease Maternal Family History: Family History (Last Reviewed 06/01/20 @ 18:[address] Queenie Mcfarlane DO) Father Myocardial infarction History Items: - - No marked maternal family history including heart disease, diabetes or cancer. Review of Systems Constitutional: Reports: Anorexia, Weakness. Denies: Chills, Fever, Weight Change Eyes: Denies: Vision Change HEENT: Denies: Head Aches, Nasal Congestion, Post Nasal Drip, Sinus Congestion, Sinus Drainage, Sore Throat Cardiovascular: Reports: Edema - ankles, Light Headedness. 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 Denies: Shortness of breath at rest, Sputum production Gastrointestinal: Reports: Constipation, Diarrhea. Denies: Abdominal Pain, Nausea, Vomiting Genitourinary: Denies: Dysuria Gynecological: Denies: Vaginal discharge Musculoskeletal: Reports: Back Pain, Joint Pain - R ankle - this is better R hip and R buttock and low back. Denies: Joint Tenderness Skin: Denies: Jaundice, Rash, Wounds Neurological: Denies: Numbness, Tingling, Focal weakness Psychiatric: Reports: Depression. Denies: Anxiety, Homicidal Ideations, Suicidal Ideations Endocrine: Reports: Change in Body Habitus - She has lost 15 pounds recently Hematologic/ Lymphatic: Reports: Easy Bruising, Easy Bleeding, Hx of blood clot VTE Information - Inpt Only VTE Present on Admission: No VTE Mechan Device Prophylaxis: Knee High PALAK Hose VTE Pharm Prophylaxis ordered?: No Reason prophylaxis not ordered:: Treatment Not Indicated - she is on anticoagulation chronically Patient Problems: Active and Suspected Problems (Last Updated 05/28/20 @ 15:[address] Dipti Larkin MD) Ankle sprain (Acute) Dehydration (Acute) Metabolic alkalosis (Acute) Secondary to volume contraction. Sciatica of right side (Acute) Acute renal failure superimposed on stage 3a chronic kidney disease (Acute) Osteoarthritis (Acute) Depression (Acute) Urinary tract infection (Suspected) it was a clean catch and had mixed organisms Elevated serum creatinine (Acute) Hypoxemia (Acute) etiology? BNP was elevated but she has stage 3 CRF and pulmonary HTN - Physical Exam Vitals/I&O's: Vital Signs Temp Pulse Resp BP Pulse Ox 98.3 F 83 18 161/100 H 91 05/30/20 10:03 05/30/20 10:03 05/30/20 10:03 05/30/20 10:03 05/30/20 10:03 Oxygen Flow Rate (L/min) 4 Oxygen Delivery Method Nasal Cannula Weight: 161 lb 13.109 oz Body Mass Index (BMI) 24.7 Finger Stick Blood Glucose 276 Intake and Output for Last 24 Hours 05/28/20 05/29/20 05/30/20 23:59 23:59 23:59 Intake Total 240 / 240 120 / 120 Balance 240 / 240 120 / 120 General: Alert, Cooperative, Well developed, - - Weak with a breathy voice which is difficult to hear. She looks very fatigued. HEENT: Atraumatic, PERRLA, EOMI, Normocephalic Oral: Dry Mucosa - very dry and she is c/o lightheadedness Neck: Supple, Trachea Midline Lungs: Clear to auscultation - anterior and lateral, Diminished, - - she is not tachypneic and she does not have cvonversational dyspnea Cardiovascular: Regular rate, Regular Rhythm, No murmurs, No Gallop Abdomen: Bowel Sounds Present, Soft, Non Tender, Non-Distended, - Extremities: Capillary Refill Less than 3 Seconds, No Calf Tenderness, Edema - chronic edema of the LE's due to severe pulmonary hypertension Skin: No rashes Musculoskeletal: - - there was no tenderness or c/o pain when I palpated the R ankles and went through ROM. She has + SLR on the R and she has tightness in the muscles of external rotation with the Lainey test. Negative SLR on the L but with the Lainey test she got pain in the R back, buttock and hip Neurological: Cranial nerves II-XII grossly intact, Neuro grossly intact Psych/Mental Status: Appropriate, Flat Affect Laboratory Results 05/29/20 21:40: POC Glucose 231 H 05/30/20 06:14: POC Glucose 209 H Current Medications Acetaminophen (Acetaminophen 500 Mg Tablet) 1,000 mg PO Q6H PRN PRN PRN Reason: Pain Score 1-10 Last Admin: 05/30/20 08:47 Dose: 1,000 mg Documented by: Apixaban (Apixaban 5 Mg Tablet) 5 mg PO 0800,1700 [facility] Last Admin: 05/30/20 08:42 Dose: 5 mg Documented by: Ascorbic Acid (Ascorbic Acid 500 Mg Tablet) 500 mg PO DAILY [facility] Last Admin: 05/30/20 06:14 Dose: 500 mg Documented by: Bisacodyl (Bisacodyl 5 Mg Tablet) 5 mg PO DAILY PRN PRN Reason: Constipation Last Admin: 05/28/20 18:53 Dose: 5 mg Documented by: Calamine/Phenol (Menthol/Lanolin/Calamine/Znox 113 Gm Tube) 1 applic TOPICAL BID [facility]; Protocol Last Admin: 05/30/20 06:12 Dose: 1 applic Documented by: Digoxin (Digoxin 125 Mcg Tablet) 125 mcg PO DAILY [facility] Last Admin: 05/30/20 06:16 Dose: 125 mcg Documented by: Escitalopram Oxalate (Escitalopram Oxalate 10 Mg Tablet) 10 mg PO DAILY [facility] Last Admin: 05/30/20 06:15 Dose: 10 mg Documented by: Febuxostat (Febuxostat 40 Mg Tablet) 80 mg PO DAILY [facility] Last Admin: 05/30/20 06:14 Dose: 80 mg Documented by: Furosemide (Furosemide 40 Mg Tablet) 40 mg PO BID@1000,1800 [facility] Last Admin: 05/30/20 09:55 Dose: 40 mg Documented by: Sodium Chloride () 250 mls @ 15 mls/hr IV .[id number] PRN PRN Reason: Saline Flush Sodium Chloride () 250 mls @ 15 mls/hr IV .[id number] PRN PRN Reason: Additional IVPB Infusion Levofloxacin (Levofloxacin 750 Mg Tablet) 750 mg PO Q48@0600 [facility] Stop: 06/04/20 06:01 Last Admin: 05/30/20 06:14 Dose: 750 mg Documented by: Lidocaine (Lidocaine 5% Patch) 2 patch TOPICAL DAILY [facility]; Protocol Last Admin: 05/30/20 06:17 Dose: 2 patch Documented by: Linagliptin (Linagliptin 5 Mg Tablet) 5 mg PO DAILY [facility] Last Admin: 05/30/20 06:13 Dose: 5 mg Documented by: Melatonin (Melatonin 3 Mg Tablet) 6 mg PO QHS [facility] Last Admin: 05/29/20 20:29 Dose: 6 mg Documented by: Methenamine Hippurate (Methenamine Hippurate 1 Gm Tablet) 1 gm PO BID [facility] Last Admin: 05/30/20 06:14 Dose: 1 gm Documented by: Metoprolol Tartrate (Metoprolol Tartrate 25 Mg Tablet) 25 mg PO BID [facility] Last Admin: 05/30/20 06:14 Dose: 25 mg Documented by: Mirtazapine (Mirtazapine 15 Mg Tablet) 15 mg PO QHS [facility] Last Admin: 05/29/20 20:29 Dose: 15 mg Documented by: Multivitamins/Minerals (Multivitamins,Ther W-Minerals Tablet) 1 tablet PO PAL Y@0800 [facility] Last Admin: 05/30/20 08:42 Dose: 1 tablet Documented by: Nutritional Formula (Lactose Free) (Ensure Enlive 120 Ml Liquid) 120 ml PO TID [facility] Last Admin: 05/30/20 06:21 Dose: 120 ml Documented by: Nystatin (Nystatin Powder 15gm Bottle) 1 applic TOPICAL BID [facility]; Protocol Last Admin: 05/30/20 06:18 Dose: 1 applic Documented by: Ondansetron HCl (Ondansetron Odt 4 Mg Tablet) 4 mg PO Q6H PRN PRN PRN Reason: NAUSEA Last Admin: 05/30/20 06:50 Dose: 4 mg Documented by: Pantoprazole Sodium (Pantoprazole Sodium 40 Mg Tablet) 40 mg PO DAILY [facility] Last Admin: 05/30/20 06:15 Dose: 40 mg Documented by: Senna/Docusate Sodium (Senna/Docusate Sodium 1 Tablet) 2 tablet PO DAILY [facility] Last Admin: 05/30/20 06:14 Dose: 2 tablet Documented by: Sodium Chloride (0.9% Saline Lock 10 Ml Syringe) 10 - 40 ml IV UD PRN PRN Reason: SALINE FLUSH Last Admin: 05/29/20 20:10 Dose: 10 ml Documented by: Tramadol HCl (Tramadol 50 Mg Tablet) 25 mg PO Q6H PRN PRN PRN Reason: Pain 3-10 Last Admin: 05/30/20 06:49 Dose: 25 mg Documented by: Tuberculin PPD (Tuberculin,Purif.Prot.Deriv. 50 Tu/Ml Vial) 5 tu ID [id number] Stop: 06/05/20 10:01 Assessment/Plan All Active Problems (Last Updated 05/28/20 @ 15:[address] Dipti Larkin MD) Ankle sprain (Acute) Dehydration (Acute) Metabolic alkalosis (Acute) Sciatica of right side (Acute) Acute renal failure superimposed on stage 3a chronic kidney disease (Acute) Osteoarthritis (Acute) Depression (Acute) Nondisplaced fracture of medial malleolus of right tibia, initial encounter for closed fracture (Ruled-out) Elevated serum creatinine (Acute) Hypoxemia (Acute) Blister of right heel (Resolved) Hypokalemia (Resolved) Acute gastroenteritis (Resolved) Chest pain (Resolved) Dehydration (Resolved) Dyspnea, unspecified (Resolved) Elevated lactic acid level (Resolved) Fall (Resolved) Fatigue (Resolved) Metabolic encephalopathy (Resolved) Palpitations (Resolved) UTI (urinary tract infection) (Resolved) Impressions 1. debility due to a fall - she is not c/o Ankle pain to me - her complaints are R lateral hip and thigh, R buttock and back and she has + SLR. She has severe osteopenia and likely osteoporosis. She has severe kyphosis. I suspect she has a vertebral compressions fracture and the pain is radicular. 2. osteopenia - suspect osteoporosis. On no calcium, vitamin D or bisphosphonates 3. 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 Urinary tract infection? Culture was negative but she had > 100 WBC's per HPF. 5. Hypoxemia 6. PFO 7. Paroxysmal atrial fibrillation 8. Hypertension 9. Chronic renal failure stage III 10. History of sick sinus syndrome with pacemaker placement 11. Hypothyroidism 12. Hypokalemia 13. Chronic diastolic congestive heart failure 14. Severe pulmonary hypertension 15. Diabetes mellitus type 2 16. Dehydration with contraction alkalosis 17. Depression 18. Osteoarthritis PLAN PT for gait stability OT for ADL's ST for evaluation Analgesics as needed Bowel protocol Fall precautions Assess for Anxiety/Depression GI prophylaxis with Protonix 40 mg p.o. daily DVT prophylaxis PALAK santillan. No pharmacologic prophylaxis is indicated since she is on chronic anticoagulation for history of VTE Follow up with PCP following DC from IP Rehab Normal saline at 60 cc/h x 1 L 250 cc normal saline bolus over the next 1 hour Gabapentin 100 mg p.o. twice daily and 200 mg p.o. nightly Hemoglobin A1c and digoxin level today CMP, mag and Phos in the a.m. Discontinue fluid restriction Change the diet to carbohydrate controlled/cardiac Continue to monitor blood sugars To new therapy She needs a DEXA and probably treatment for suspected severe osteoporosis Will check a vitamin D level. Inpatient E&M: [id number] Init Hosp L2
[2020-05-30 11:36] LABS: Hemoglobin A1c 6.8 % (3.8-5.6)
[2020-05-30 11:59] LABS: Digoxin Level 1.62 ng/mL (0.80-2.00)
[2020-05-30] MEDS: 0.9% Normal Saline 1,000 ML 60 ML IV (12:33)
--- NOTE | 2020-05-30 14:04 | PT ---
Pt's SPO2 was 89% while on 4L of O2 when laying supine in bed. RN aware. Pt had a hard splint on R foot. Per physician, pt has an ankle sprain and not an ankle Fx. OK to remove hard splint and physician requesting air cast brace for R ankle. This SEASONAL CLERK removed current splint and main wrap applied. RN presend to assess pt's R heel due to pt having a Hx of pressure areas on R heel. RN applied Meplilex dressing. Pt was max A x 2 for all bed mobility. Assisted with cleaning and changing pt, due to pt having multiple episodes of incontinence with BM. Unable to get pt out of bed and into recliner today due to pt having multiple episodes of loose BM. Pt very lethargic and was SOB after bed mobility. Spoke with pt's son Richard. Asked son to bring in copy of pt's vaccination card for COVID vaccine. Son stated he will bring in card tonight. Pt's son also updated on pt. Richard stated pt takes Imodium at home and has a Hx of diarrhea. Reported to RN.
[2020-05-30] MEDS: Gabapentin 100 MG Capsule PO (17:23)
--- NOTE | 2020-05-30 17:27 | NURSING ---
Dr Mcfarlane feels that pts pain is from sciatica, nerve pain. manipulated Rt ankle and pt denied pain. Air cast on hold for now. resting in bed on back, call light in reach. lidocaine patches removed per order.
--- NOTE | 2020-05-30 18:24 | NURSING ---
son brought in pts covid vaccination card, copy made & placed in chart and one given to [facility] finance and administration manager.
[2020-05-30] MEDS: Gabapentin 100 MG Capsule 200 MG PO (20:09)
[2020-05-30 21:46] LABS: Bedside Glucose 240 mg/dL (70-110)
[2020-05-30] MEDS: Mirtazapine 15 MG Tablet PO (22:45)
[2020-05-31] VITALS (7 sets, daily range): BP systolic 112–138; BP diastolic 64; PULSE 74–80; RESP 16–20; TEMP 36.3–36.5; O2SAT 92–96
[2020-05-31] MEDS: 0.9% Saline Lock 10 ML Syringe IV ×2 (05:36→14:17)
[2020-05-31] MEDS: Menthol/Lanolin/Calamine/Znox 113 GM Tube 1 APPLIC TOPICAL ×2 (05:37→17:49)
[2020-05-31] MEDS: Methenamine Hippurate 1 GM Tablet PO ×2 (05:38→17:49)
[2020-05-31] MEDS: Digoxin 125 MCG Tablet PO (05:39)
[2020-05-31] MEDS: Escitalopram Oxalate 10 MG Tablet PO (05:39)
[2020-05-31] MEDS: Lidocaine 5% Patch 2 PATCH TOPICAL (05:41)
[2020-05-31] MEDS: Metoprolol Tartrate 25 MG Tablet PO ×2 (05:42→17:48)
[2020-05-31] MEDS: Nystatin Powder 15gm Bottle 1 APPLIC TOPICAL ×2 (05:43→17:52)
[2020-05-31] MEDS: Pantoprazole Sodium 40 MG Tablet PO (05:43)
[2020-05-31] MEDS: Acetaminophen 500 MG Tablet 1000 MG PO ×3 (05:44→21:50)
[2020-05-31] MEDS: Senna/Docusate Sodium 1 Tablet 2 TABLET PO (05:44)
[2020-05-31] MEDS: LINAGLIPTIN 5 MG TABLET PO (05:44)
[2020-05-31] MEDS: Febuxostat 40 MG TABLET 80 MG PO (05:44)
[2020-05-31] MEDS: Ascorbic Acid 500 MG Tablet PO (05:45)
[2020-05-31 06:00] LABS: ALB/GLOB Ratio 0.9 RATIO (0.9-2.4); AST(SGOT) 12 U/L (15-37); Alanine Aminotransfer ALT/SGPT 12 U/L (13-56); Albumin, Serum 2.6 g/dL (3.2-5.0); Alkaline Phosphatase 62 U/L (45-117); Anion Gap 3 (5-15); BUN 46 mg/dL (7-18); BUN/Creat Ratio 54.6 RATIO (10-20); Calcium,Total 9.1 mg/dL (8.5-10.1); Chloride 101 mmol/L (98-107); Creatinine, Serum 0.84 mg/dL (0.55-1.02); EST Glomerular Filtration Rate 68 mL/min (>60); Est Glom Filt Rate - Afr Amer 83 mL/min (>60); Estimated Creatinine Clearance 47.62 ml/min; Glucose 170 mg/dL (74-106); Magnesium 2.2 mg/dL (1.6-2.6); Phosphorus 2.1 mg/dL (2.5-4.9); Potassium 3.1 mmol/L (3.5-5.1); Protein, Total 5.6 g/dL (6.4-8.2); Sodium Level 140 mmol/L (136-145)
[2020-05-31 06:36] LABS: Bedside Glucose 152 mg/dL (70-110)
[2020-05-31] MEDS: APIXABAN 5 MG TABLET PO ×2 (08:56→17:48)
[2020-05-31] MEDS: Multivitamins,Ther W-Minerals Tablet 1 TABLET PO (08:56)
[2020-05-31] MEDS: Gabapentin 100 MG Capsule PO ×2 (08:56→17:48)
[2020-05-31] MEDS: traMADol 50 MG Tablet 25 MG PO (08:58)
--- NOTE | 2020-05-31 10:17 | NURSING ---
Addendum entered by Meryl Stone 05/31/20 11:51: Rechecked SpO2 pt 94% 5L NC. Decreased to 4L NC and reassessed pt 94% NC. Will continue to monitor Pt resting in bed. Call light within reach. Original Note: pt Spo2 87% 4L NC during therapy. Oxygen increased to 5L NC rechecked SpO2 92% NC. Will continue to monitor pt call light within reach.
--- NOTE | 2020-05-31 11:48 | NURSING ---
Pt c/o of pain in right hip 11/25. Pt didn't have any pain relief after administering PRN Ultram. Pt refusing to eat lunch. Will update Dr. Mcfarlane.
--- NOTE | 2020-05-31 14:20 | NURSING ---
Pt straight cath to collect urine for UA. Pt tolerated well 350cc yellow clear with strong odor.
[2020-05-31] MEDS: Potassium Chloride Oral Tablet 20 MEQ PO ×3 (14:21→21:51)
[2020-05-31] MEDS: Na Biphos/Potassium Phosphate PACKET 1 PACKET PO ×2 (14:23→21:50)
[2020-05-31 15:36] LABS: Mucous, Urine 0 SEEN /hpf (<or=2+)
[2020-05-31 15:40] LABS: Color, Urine Yellow (Yellow); Glucose, Dipstick 100 mg/dl (Normal); Ketone-Dipstick 5 mg/dl (Negative); Leukocyte Esterase-Dipstick 500 /ul (Negative); Nitrite-Dipstick Negative (Negative); Occult Blood-Urine 10 /ul (Negative); Protein-Dipstick 30 mg/dl (Negative); Specific Gravity, Urine 1.015 (1.002-1.030); Urine Bilirubin Dipstick Negative (Negative); Urine Clarity Clear (Clear); Urine Urobilinogen Normal (Normal)
[2020-05-31 16:08] LABS: Bacteria 1+ /hpf (None Seen); Hyaline Cast 0-5 SEEN /lpf (0-5); Red Blood Cells-Urine 0-5 SEEN /hpf (0-5); Squamous Epithelial Cells - UA 0-5 SEEN /hpf (5-10); White Blood Cells 25-50 SEEN /hpf (0-5)
--- NOTE | 2020-05-31 16:44 | NURSING ---
Pt son pepe here to visit and updated him on new orders.
--- NOTE | 2020-05-31 17:04 | PHA.CONS_ITS ---
Progress Note - Pharmacy Subjective: TCU Admission Objective: Allergies exenatide [From [place]] Allergy (Verified 11/29/19 15:28) Unknown metformin Allergy (Verified 11/29/19 15:28) Rash Penicillins [PCN] Allergy (Verified 11/29/19 15:28) Unknown simvastatin [From Zocor] Adverse Reaction (Severe, Verified 11/29/19 15:28) Myalgias prednisone Adverse Reaction (Unknown, Verified 11/29/19 15:28) effects blood sugar amoxicillin [From Augmentin] Adverse Reaction (Verified 11/29/19 15:28) Diarrhea clavulanic acid [From Augmentin] Adverse Reaction (Verified 11/29/19 15:) Diarrhea crestor Adverse Reaction (Intermediate, Uncoded 12/06/18 13:27) myalgia Current Medications Generic Name Dose Route Start Last Admin Trade Name Freq PRN Reason Stop Dose Admin Acetaminophen 1,000 mg 05/30/20 14:00 05/31/20 14:29 Acetaminophen 500 Mg Tablet PO 1,000 mg Q8H NELL Administration Apixaban 5 mg 05/28/20 17:00 05/31/20 08:56 Apixaban 5 Mg Tablet PO 5 mg 0800,1700 NELL Administration Ascorbic Acid 500 mg 05/29/20 06:00 05/31/20 05:45 Ascorbic Acid 500 Mg Tablet PO 500 mg DAILY NELL Administration Bisacodyl 5 mg 05/28/20 16:54 05/28/20 18:53 Bisacodyl 5 Mg Tablet PO 5 mg DAILY PRN Administration Constipation Calamine/Phenol 1 applic 05/28/20 18:00 05/31/20 05:37 Menthol/Lanolin/Calamine/Znox 113 Gm Tube TOPICAL 1 applic BID NELL Administration Protocol Digoxin 125 mcg 05/29/20 06:00 05/31/20 05:39 Digoxin 125 Mcg Tablet PO 125 mcg DAILY NELL Administration Escitalopram Oxalate 10 mg 05/29/20 06:00 05/31/20 05:39 Escitalopram Oxalate 10 Mg Tablet PO 10 mg DAILY NELL Administration Febuxostat 80 mg 05/29/20 06:00 05/31/20 05:44 Febuxostat 40 Mg Tablet PO 80 mg DAILY NELL Administration Gabapentin 100 mg 05/30/20 17:00 05/31/20 08:56 Gabapentin 100 Mg Capsule PO 100 mg BIDCM NELL Administration Gabapentin 200 mg 05/30/20 20:00 05/30/20 20:09 Gabapentin 100 Mg Capsule PO 200 mg 2000 NELL Administration Sodium Chloride 250 mls @ 15 mls/hr 05/28/20 19:56 IV .[id number] PRN Saline Flush Sodium Chloride 250 mls @ 15 mls/hr 05/28/20 19:56 IV .[id number] PRN Additional IVPB Infusion Potassium Chloride/Sodium Chloride 1,000 mls @ 75 mls/hr 05/31/20 13:20 05/31/20 14:17 IV 06/01/20 09:19 75 mls/hr .[id number] NELL Administration Levofloxacin 750 mg 05/30/20 06:00 05/30/20 06:14 Levofloxacin 750 Mg Tablet PO 06/04/20 06:01 750 mg Q48@0600 NELL Administration Lidocaine 2 patch 05/29/20 06:00 05/31/20 05:41 Lidocaine 5% Patch TOPICAL 2 patch DAILY NELL Administration Protocol Linagliptin 5 mg 05/29/20 06:00 05/31/20 05:44 Linagliptin 5 Mg Tablet PO 5 mg DAILY NELL Administration Methenamine Hippurate 1 gm 05/28/20 18:00 05/31/20 05:38 Methenamine Hippurate 1 Gm Tablet PO 1 gm BID NELL Administration Metoprolol Tartrate 25 mg 05/28/20 18:00 05/31/20 05:42 Metoprolol Tartrate 25 Mg Tablet PO 25 mg BID NELL Administration Mirtazapine 15 mg 05/28/20 22:00 05/30/20 22:45 Mirtazapine 15 Mg Tablet PO 15 mg QHS NELL Administration Multivitamins/Minerals 1 tablet 05/29/20 08:00 05/31/20 08:56 Multivitamins,Ther W-Minerals Tablet PO 1 tablet DAILY@0800 NELL Administration Non-Formulary Medication 1 tab 05/30/20 18:27 05/30/20 20:08 Lactaid PO 1 tab DAILY PRN Administration prevention of gas,bloating,& diarrhea w/milk inges Nutritional Formula (Lactose Free) 120 ml 05/29/20 06:00 05/31/20 14:27 Ensure Enlive 120 Ml Liquid PO 120 ml TID NELL Administration Nystatin 1 applic 05/29/20 18:00 05/31/20 05:43 Nystatin Powder 15gm Bottle TOPICAL 1 applic BID NELL Administration Protocol Ondansetron HCl 4 mg 05/29/20 10:05 05/30/20 06:50 Ondansetron Odt 4 Mg Tablet PO 4 mg Q6H PRN PRN Administration NAUSEA Pantoprazole Sodium 40 mg 05/29/20 06:00 05/31/20 05:43 Pantoprazole Sodium 40 Mg Tablet PO 40 mg DAILY NELL Administration Potassium Chloride 20 meq 05/31/20 13:00 05/31/20 14:21 Potassium Chloride Oral Tablet 20 Meq PO 05/31/20 21:01 20 meq Q4H NELL Administration Potassium Chloride 20 meq 06/01/20 08:00 Potassium Chloride Oral Tablet 20 Meq PO DAILYCM NELL Potassium Phos/Sodium Phos 1 packet 05/31/20 14:00 05/31/20 14:23 Na Biphos/Potassium Phosphate Packet PO 06/03/20 06:01 1 packet TID NELL Administration Senna/Docusate Sodium 2 tablet 05/29/20 06:00 05/31/20 05:44 Senna/Docusate Sodium 1 Tablet PO 2 tablet DAILY NELL Administration Sodium Chloride 10 - 40 ml 05/28/20 19:56 05/31/20 14:17 0.9% Saline Lock 10 Ml Syringe IV 10 ml UD PRN Administration SALINE FLUSH Tramadol HCl 25 mg 05/29/20 17:49 05/31/20 08:58 Tramadol 50 Mg Tablet PO 25 mg Q6H PRN PRN Administration Pain 3-10 Tuberculin PPD 5 tu 06/05/20 10:00 Tuberculin,Purif.Prot.Deriv. 50 Tu/Ml Vial ID 06/05/20 10:01 X1 ONE Problem List (Last Updated 05/28/20 @ 15:[address] 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) Urinary tract infection (Suspected) Elevated serum creatinine (Acute) Hypoxemia (Acute) PFO (patent foramen ovale) (Chronic) Paroxysmal atrial fibrillation (Chronic) Essential hypertension (Chronic) Pressure ulcer of right foot, unstageable (Chronic) Delayed wound healing (Chronic) Malnutrition (Chronic) CKD (chronic kidney disease) stage 3, GFR 30-59 ml/min (Chronic) Sick sinus syndrome (Chronic) Cardiomyopathy, nonischemic (Chronic) HLD (hyperlipidemia) (Chronic) Hypothyroidism (Chronic) Chronic diastolic (congestive) heart failure (Chronic) Iron deficiency anemia (Chronic) GERD (gastroesophageal reflux disease) (Chronic) Cardiac pacemaker in situ (Chronic) DM2 (diabetes mellitus, type 2) (Chronic) Pulmonary hypertension (Chronic) Vital Signs Temp Pulse Resp BP Pulse Ox 97.3 F L 75 16 138/64 H 96 05/31/20 14:32 05/31/20 14:32 05/31/20 14:32 05/31/20 14:32 05/31/20 14:32 Oxygen Flow Rate (L/min) 4 Oxygen Delivery Method Nasal Cannula Weight: 73.4 kg Body Mass Index (BMI) 24.7 Finger Stick Blood Glucose 276 Sodium 140 mmol/L (136-145) 05/31/20 05:15 Potassium 3.1 mmol/L (3.5-5.1) L 05/31/20 05:15 Chloride 101 mmol/L (98-107) 05/31/20 05:15 Carbon Dioxide 36.0 mmol/L (21.0-32.0) H 05/31/20 05:15 Anion Gap 3 (5-15) L 05/31/20 05:15 BUN 46 mg/dL (7-18) H 05/31/20 05:15 Creatinine 0.84 mg/dL (0.55-1.02) 05/31/20 05:15 Est GFR (MDRD) Af Amer 83 mL/min (>60) 05/31/20 05:15 Est GFR (MDRD) Non-Af 68 mL/min (>60) 05/31/20 05:15 BUN/Creatinine Ratio 54.6 RATIO (10-20) H 05/31/20 05:15 Glucose 170 mg/dL (74-106) H 05/31/20 05:15 Assessment/Plan: 1. Pain: acetaminophen 1000mg PO Q8H, tramadol 25mg PO Q6H PRN pain 3-10/10 and lidocaine 5% patch 2 patches to the lower back daily. Please continue to monitor for increased pain and PRN usage. 2. Atrial fibrillation/hypertension/previous DVT: apixaban 5mg PO BID, digoxin 125mcg PO daily, metoprolol tartrate 25mg PO BID. Please continue to monitor for S/S of bleeding, DVT, BP (last 138/64), HR (last 75), renal function, digoxin level (last WNL 05/30/20), and hemoglobin (last 14.3g/dL). 3. UTI: levofloxacin 750mg PO Q48H thru 06/04/20 and methenamine 1gm PO BID. Please continue to monitor urine culture, S/S of infection, renal function and low blood sugars. 4. Diabetes mellitus II: linagliptin 5mg PO daily. Please continue to monitor for hemoglobin A1c (last 6.8%) and blood glucose (last 152). 5. GERD: pantoprazole 40mg PO daily. Please continue to monitor for S/S of GERD. 6. Gout: febuxostat 80mg PO daily. Please continue to monitor for S/S of gout. 7. Hypokalemia: potassium chloride 20mEq in NS 1000mL @ 75mLs/hr thru 06/01, potassium chloride 20mEq PO Q4H x 3 doses then 20mEq PO dailyCM, potassium phos/Na Phos 1 packet PO TID thru 06/03. Please continue to monitor potassium levels (last 3.1mmo/L). 8. Nausea: ondansetron ODT 4mg PO Q6H PRN nausea. Please continue to monitor for nausea and PRN usage. Psychotropic Medications: *1. Depression: escitalopram 10mg PO daily and mirtazapine 15mg PO QHS. Please consider GDR by 11/2020 if clinically appropriate. Thanks. *Unnecessary Medications: ascorbic acid 500mg PO daily, multivitamin with minerals 1T PO DAILYCM, and gabapentin 100mg PO BIDCM and 200mg @ 2000. These medications do not have documented indications. Please consider adding indications. Thanks. Bowel Regimen: senna/docusate 2T PO daily and bisacodyl 5mg PO daily PRN constipation. Please continue to monitor for constipation and PRN usage. Date of Note:: 05/31/20 - Provider Comments Provider responsibility: Provider responsible to enter orders to implement recommendations
[2020-05-31 21:45] LABS: Bedside Glucose 195 mg/dL (70-110)
[2020-05-31] MEDS: Mirtazapine 15 MG Tablet PO (21:51)
[2020-05-31] MEDS: Gabapentin 100 MG Capsule 200 MG PO (21:51)
[2020-06-01] VITALS (7 sets, daily range): BP systolic 114–137; BP diastolic 64; PULSE 55–74; RESP 18; TEMP 36.4–37; O2SAT 90–93
[2020-06-01 05:37] LABS: Potassium 4.3 mmol/L (3.5-5.1)
[2020-06-01] MEDS: Acetaminophen 500 MG Tablet 1000 MG PO ×3 (06:56→23:02)
[2020-06-01] MEDS: levoFLOXacin 750 MG Tablet PO (06:57)
[2020-06-01 07:00] LABS: Bedside Glucose 173 mg/dL (70-110)
[2020-06-01] MEDS: Menthol/Lanolin/Calamine/Znox 113 GM Tube 1 APPLIC TOPICAL ×2 (07:00→18:19)
[2020-06-01] MEDS: Lidocaine 5% Patch 2 PATCH TOPICAL (07:01)
[2020-06-01] MEDS: Na Biphos/Potassium Phosphate PACKET 1 PACKET PO ×2 (07:02→13:12)
[2020-06-01] MEDS: Escitalopram Oxalate 10 MG Tablet PO (07:02)
[2020-06-01] MEDS: LINAGLIPTIN 5 MG TABLET PO (07:03)
[2020-06-01] MEDS: Senna/Docusate Sodium 1 Tablet 2 TABLET PO (07:03)
[2020-06-01] MEDS: Pantoprazole Sodium 40 MG Tablet PO (07:03)
[2020-06-01] MEDS: Ascorbic Acid 500 MG Tablet PO (07:03)
[2020-06-01] MEDS: Febuxostat 40 MG TABLET 80 MG PO (07:04)
[2020-06-01] MEDS: Methenamine Hippurate 1 GM Tablet PO ×2 (07:04→18:19)
[2020-06-01] MEDS: Nystatin Powder 15gm Bottle 1 APPLIC TOPICAL ×2 (07:05→18:22)
[2020-06-01] MEDS: Metoprolol Tartrate 25 MG Tablet PO ×2 (07:16→18:18)
[2020-06-01] MEDS: Digoxin 125 MCG Tablet PO (07:20)
[2020-06-01] MEDS: Multivitamins,Ther W-Minerals Tablet 1 TABLET PO (08:33)
[2020-06-01] MEDS: APIXABAN 5 MG TABLET PO ×2 (08:33→18:18)
[2020-06-01] MEDS: Gabapentin 100 MG Capsule PO ×2 (08:33→18:18)
[2020-06-01] MEDS: Potassium Chloride Oral Tablet 20 MEQ PO (08:33)
[2020-06-01] MEDS: traMADol 50 MG Tablet 25 MG PO ×2 (08:37→18:56)
--- NOTE | 2020-06-01 10:48 | PT ---
Pt's SPO2 was 87% on 4L of O2 with activity and 90% at rest. Pt was increased to 6L of O2. Pt's SPO2 was 88-89% with activity while on 6L and 93% while at rest on 6L. Reported to WAIVER ANALYST.
--- NOTE | 2020-06-01 18:51 | PN_ITS ---
Progress Note Afebrile Vital signs stable Poor oral intake Incontinent of urine Calcium following supplementation is 4.3 today. She denies lightheadedness, chest pain, shortness of breath. She tells me her pain is still severe and it is located in the low back, right buttock and in the right lateral hip area and thigh. The pain increases with any movement. 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 She has never had a BMD test. she is not on Calcium or Vitamin D. I reviewed all XRAYS done at admission to the hospital and there is a report of a thoracic vertebral fx.....it does not mention if acute in appearance. she has never been told she had a vertebral fracture in the past. She had a XRAY of the spine in 2016 and there was no mention of a vertebral fracture at that time. The last vitamin D she has in the EMR is from 2017 and at that time she had vitamin D insufficiency. She is alert and appears to be in significant discomfort. She is much more alert since being hydrated. The urine culture from 05/31 has no growth but she does have pyuria and I suspect it is probably due to yeast......related to the antibiotics while in the acute side of the hospital. No significant change in the physical exam since my last nite. Impressions 1. intractable Back, R buttock, R lateral thigh and hip pain which I suspect is radicular. I suspect she likely had a vertebral compression fracture when she fell and there may be pressure on the nerves. 2. hypokalemia - resolved with supplementation Will add Miacalcin which sometimes helps with the pain due to acute vertebral fx DC the Levaquin Use Monistat 7 vaginal cream start Prednisone to help with radicular pain......I expect the sugars to increase and will add a SSI coverage. Increase the Gabapentin doses Increase the Tramadol to 50 [address] Q [address] scan of the thoracic and LS - if she does have a vertebral compression frac nurys would consult Dr. Church for a kyphoplasty and possible Epidural for pain control Needs a DEXA as an OP If she has osteoporosis would refer to Dr. Johann Chawla for possible Prolia. STROKE Vital Signs/Narrative: Vital Signs Temp Pulse Resp BP Pulse Ox 06/01/20 18:18 73 06/01/20 15:29 97.5 F L 55 L 18 137/64 H 93 Inpatient E&M: [id number] Subs Hosp L2
[2020-06-01] MEDS: predniSONE 20 MG Tablet 60 MG PO (20:15)
[2020-06-01 21:41] LABS: Bedside Glucose 166 mg/dL (70-110)
[2020-06-01] MEDS: Mirtazapine 15 MG Tablet PO (23:02)
[2020-06-01] MEDS: Insulin Lispro 100 UNIT/ML INSULN.PEN SC (23:02)
[2020-06-01] MEDS: Gabapentin 100 MG Capsule 200 MG PO (23:02)
[2020-06-02 06:40] LABS: Bedside Glucose 235 mg/dL (70-110)
[2020-06-02] MEDS: 0.9% Saline Lock 10 ML Syringe IV ×2 (06:41→17:11)
[2020-06-02 06:42] VITALS: BP 128/92; PULSE 81
[2020-06-02] MEDS: Febuxostat 40 MG TABLET 80 MG PO (06:42)
[2020-06-02] MEDS: Metoprolol Tartrate 25 MG Tablet PO ×2 (06:42→17:03)
[2020-06-02] MEDS: Ascorbic Acid 500 MG Tablet PO (06:42)
[2020-06-02] MEDS: Escitalopram Oxalate 10 MG Tablet PO (06:42)
[2020-06-02] MEDS: LINAGLIPTIN 5 MG TABLET PO (06:42)
[2020-06-02] MEDS: Senna/Docusate Sodium 1 Tablet 2 TABLET PO (06:42)
[2020-06-02] MEDS: Digoxin 125 MCG Tablet PO (06:42)
[2020-06-02] MEDS: Pantoprazole Sodium 40 MG Tablet PO (06:43)
[2020-06-02] MEDS: Gabapentin 100 MG Capsule 200 MG PO ×3 (06:44→21:18)
[2020-06-02] MEDS: Calcitonin-Salmon 1 SPRAY SPRAY NARES (06:45)
[2020-06-02] MEDS: Methenamine Hippurate 1 GM Tablet PO ×2 (06:46→17:03)
[2020-06-02] MEDS: Acetaminophen 500 MG Tablet 1000 MG PO ×3 (06:47→21:18)
[2020-06-02] MEDS: Nystatin Powder 15gm Bottle 1 APPLIC TOPICAL ×2 (06:48→21:17)
[2020-06-02] MEDS: Lidocaine 5% Patch 2 PATCH TOPICAL (06:48)
[2020-06-02 06:58] VITALS: BP 128/92; PULSE 81; RESP 18; TEMP 36.6; O2SAT 93
[2020-06-02] MEDS: Menthol/Lanolin/Calamine/Znox 113 GM Tube 1 APPLIC TOPICAL ×2 (07:07→17:05)
[2020-06-02] MEDS: Insulin Lispro 100 UNIT/ML INSULN.PEN SC ×4 (08:27→22:36)
[2020-06-02] MEDS: Calcium Carbonate 500 MG Tablet PO ×3 (08:31→17:02)
[2020-06-02] MEDS: APIXABAN 5 MG TABLET PO ×2 (08:31→17:02)
[2020-06-02] MEDS: Multivitamins,Ther W-Minerals Tablet 1 TABLET PO (08:32)
[2020-06-02] MEDS: Potassium Chloride Oral Tablet 20 MEQ PO (08:32)
[2020-06-02] MEDS: predniSONE 20 MG Tablet 40 MG PO (08:35)
[2020-06-02 11:51] LABS: Bedside Glucose 256 mg/dL (70-110)
[2020-06-02] MEDS: traMADol 50 MG Tablet PO ×2 (13:15→21:17)
[2020-06-02 15:16] VITALS: BP 130/61; PULSE 81; RESP 16; TEMP 36.6; O2SAT 93
[2020-06-02 15:50] VITALS: O2SAT 93
[2020-06-02 17:00] LABS: Bedside Glucose 248 mg/dL (70-110)
[2020-06-02 17:03] VITALS: PULSE 81
[2020-06-02] MEDS: Mirtazapine 15 MG Tablet PO (21:18)
[2020-06-02 22:40] LABS: Bedside Glucose 394 mg/dL (70-110)
[2020-06-03] VITALS (7 sets, daily range): BP systolic 121–140; BP diastolic 65–78; PULSE 72–81; RESP 18; TEMP 35.9–36.8; O2SAT 95–96
[2020-06-03 01:35] LABS: Bedside Glucose 292 mg/dL (70-110)
[2020-06-03] MEDS: Senna/Docusate Sodium 1 Tablet 2 TABLET PO (04:57)
[2020-06-03] MEDS: Ascorbic Acid 500 MG Tablet PO (04:57)
[2020-06-03] MEDS: Gabapentin 100 MG Capsule 200 MG PO ×3 (04:57→20:06)
[2020-06-03] MEDS: Pantoprazole Sodium 40 MG Tablet PO (04:57)
[2020-06-03] MEDS: Febuxostat 40 MG TABLET 80 MG PO (04:57)
[2020-06-03] MEDS: Escitalopram Oxalate 10 MG Tablet PO (04:58)
[2020-06-03] MEDS: Metoprolol Tartrate 25 MG Tablet PO ×2 (04:58→17:21)
[2020-06-03] MEDS: LINAGLIPTIN 5 MG TABLET PO (04:58)
[2020-06-03] MEDS: Acetaminophen 500 MG Tablet 1000 MG PO ×3 (04:58→20:06)
[2020-06-03] MEDS: Digoxin 125 MCG Tablet PO (04:58)
[2020-06-03] MEDS: Methenamine Hippurate 1 GM Tablet PO ×2 (04:59→17:21)
[2020-06-03] MEDS: Lidocaine 5% Patch 2 PATCH TOPICAL (05:06)
[2020-06-03] MEDS: Calcitonin-Salmon 1 SPRAY SPRAY NARES (05:08)
[2020-06-03] MEDS: Nystatin Powder 15gm Bottle 1 APPLIC TOPICAL ×2 (05:10→20:06)
[2020-06-03] MEDS: Menthol/Lanolin/Calamine/Znox 113 GM Tube 1 APPLIC TOPICAL ×2 (05:10→17:24)
[2020-06-03 06:18] LABS: Anion Gap 4 (5-15); BUN 34 mg/dL (7-18); BUN/Creat Ratio 49.1 RATIO (10-20); Calcium,Total 9.3 mg/dL (8.5-10.1); Chloride 104 mmol/L (98-107); Creatinine, Serum 0.69 mg/dL (0.55-1.02); EST Glomerular Filtration Rate 86 mL/min (>60); Est Glom Filt Rate - Afr Amer 104 mL/min (>60); Glucose 323 mg/dL (74-106); Phosphorus 2.5 mg/dL (2.5-4.9); Potassium 4.2 mmol/L (3.5-5.1); Sodium Level 140 mmol/L (136-145)
[2020-06-03 06:46] LABS: Bedside Glucose 297 mg/dL (70-110)
[2020-06-03] MEDS: traMADol 50 MG Tablet PO (08:10)
[2020-06-03] MEDS: Calcium Carbonate 500 MG Tablet PO ×3 (08:12→17:21)
[2020-06-03] MEDS: APIXABAN 5 MG TABLET PO ×2 (08:12→17:21)
[2020-06-03] MEDS: Potassium Chloride Oral Tablet 20 MEQ PO (08:12)
[2020-06-03] MEDS: predniSONE 20 MG Tablet 40 MG PO (08:13)
[2020-06-03] MEDS: Multivitamins,Ther W-Minerals Tablet 1 TABLET PO (08:13)
[2020-06-03] MEDS: Insulin Lispro 100 UNIT/ML INSULN.PEN SC ×4 (08:16→22:29)
[2020-06-03] MEDS: 0.9% Saline Lock 10 ML Syringe IV (10:13)
--- NOTE | 2020-06-03 10:38 | RAD_ITS ---
STUDY: X-RAY CHEST REASON FOR EXAM: Female, 85 years old. cough TECHNIQUE: PA and lateral views of the chest. COMPARISON: 05/24/2020 FINDINGS: Left subclavian dual-lead pacemaker which is unchanged. The patient is rotated to the left. Poor inspiration with some bibasilar atelectasis. There is no demonstrated pleural abnormality. Normal size heart. Normal mediastinum and becky. Normal visualized pulmonary arteries. Normal visualized aortic arch and descending thoracic aorta. Normal visualized thoracic spine. Normal visualized ribs, clavicles, and shoulders. There is no demonstrated abnormality of the visualized soft tissue structures of the upper abdomen. RAD/Chest PA and Lateral IMPRESSION: Poor inspiration with some bibasilar atelectasis per Electronically Signed: Indra Schultz MD at 11:42 EDT Tel , Service support ,
[2020-06-03] MEDS: morphine (oral solution) 10MG/0.5ML Syringe 10 MG SL (11:00)
[2020-06-03 11:16] LABS: Bedside Glucose 245 mg/dL (70-110)
--- NOTE | 2020-06-03 13:57 | NURSING ---
PT noted with moist cough, rhonchi on expiration bilat post lobes. oxygen maintained @ 4 liters, chest xray done and showed poor inspiration. Dr richardson updated. no new orders. Encouraged I.S. and pt has been using. pt resting in bed, HOB elevated. thickened fluids encouraged. pt given morphine 10mg SL d/t c/o 11/25 in rt buttock/hip and ultram ineffective. pt went to xray in bed and returned sleeping comfortably. when awakened to check morphine effectiveness pt rated pain 8/10. will continue to monitor.
--- NOTE | 2020-06-03 15:30 | NURSING ---
checked on pt, pt asleep, resp even and unlabored. no distress noted. hob elevated, oxygen maintained. call light in reach.
--- NOTE | 2020-06-03 15:54 | NURSING ---
updated mary alice cantu on new orders and pt status.
[2020-06-03 16:40] LABS: Bedside Glucose 362 mg/dL (70-110)
[2020-06-03] MEDS: Mirtazapine 15 MG Tablet PO (20:06)
[2020-06-03 21:20] LABS: Bedside Glucose 235 mg/dL (70-110)
[2020-06-04] VITALS (7 sets, daily range): BP systolic 142–145; BP diastolic 67–81; PULSE 75–99; RESP 16–20; TEMP 36.3–36.6; O2SAT 92–96
[2020-06-04] MEDS: Menthol/Lanolin/Calamine/Znox 113 GM Tube 1 APPLIC TOPICAL ×2 (05:44→17:50)
[2020-06-04] MEDS: Acetaminophen 500 MG Tablet 1000 MG PO ×3 (05:45→20:43)
[2020-06-04] MEDS: Senna/Docusate Sodium 1 Tablet 2 TABLET PO (05:45)
[2020-06-04] MEDS: Escitalopram Oxalate 10 MG Tablet PO (05:46)
[2020-06-04] MEDS: Febuxostat 40 MG TABLET 80 MG PO (05:47)
[2020-06-04] MEDS: Nystatin Powder 15gm Bottle 1 APPLIC TOPICAL ×2 (05:47→20:49)
[2020-06-04] MEDS: LINAGLIPTIN 5 MG TABLET PO (05:47)
[2020-06-04] MEDS: Gabapentin 100 MG Capsule 200 MG PO ×3 (05:47→20:42)
[2020-06-04] MEDS: Lidocaine 5% Patch 2 PATCH TOPICAL (05:48)
[2020-06-04] MEDS: Metoprolol Tartrate 25 MG Tablet PO ×2 (05:48→17:50)
[2020-06-04] MEDS: Digoxin 125 MCG Tablet PO (05:48)
[2020-06-04] MEDS: Methenamine Hippurate 1 GM Tablet PO ×2 (05:48→17:50)
[2020-06-04] MEDS: Pantoprazole Sodium 40 MG Tablet PO (05:48)
[2020-06-04] MEDS: Ascorbic Acid 500 MG Tablet PO (05:48)
[2020-06-04] MEDS: Calcitonin-Salmon 1 SPRAY SPRAY NARES (05:49)
[2020-06-04 06:21] LABS: Bedside Glucose 260 mg/dL (70-110)
[2020-06-04] MEDS: Insulin Lispro 100 UNIT/ML INSULN.PEN SC ×4 (08:14→22:07)
[2020-06-04] MEDS: Calcium Carbonate 500 MG Tablet PO ×3 (08:15→17:50)
[2020-06-04] MEDS: APIXABAN 5 MG TABLET PO ×2 (08:15→17:50)
[2020-06-04] MEDS: Potassium Chloride Oral Tablet 20 MEQ PO (08:15)
[2020-06-04] MEDS: Multivitamins,Ther W-Minerals Tablet 1 TABLET PO (08:15)
[2020-06-04] MEDS: predniSONE 20 MG Tablet 40 MG PO (08:15)
[2020-06-04 10:50] LABS: Bedside Glucose 175 mg/dL (70-110)
[2020-06-04] MEDS: 0.9% Saline Lock 10 ML Syringe IV (11:46)
[2020-06-04] MEDS: morphine (oral solution) 10MG/0.5ML Syringe 10 MG SL ×2 (12:00→20:48)
--- NOTE | 2020-06-04 12:06 | CASEMGMT ---
Social Work Spoke with son to discuss DC plans. Explained IDT recommending alternative DC plan as pt is unsafe to return home at this time. Son agreed. Inquired about SNF placement. Son hesitant but agreeable. Emailed list of SNFs that provides include quality and resource data that is consistent with the pt's preferred geographic region, medical needs and insurance networks. Explained once insurance issues DC date for TCU, pt will pay privately or apply for [facility]. Son stated he attempted to apply for [facility] prior but it fell through. Pt should qualify as all assets were previously liquidated. Emailed [facility] xiang. Explained to choose 2-3 SNFs for SW to refer to and return [facility] once completed for SW to submit. Explained ordered Palliative Care consult and briefly explained services. Son agreeable. Although, son stated during visit yesterday, pt did not appear in pain, was in good spirits, and appeared to be more alert. Which is contrary to staff observations and interactions. Explained insurance NRD 06/06 and is requesting alternative DC plan and continued stay is not guaranteed. Explained SW attempted to speak with pt this morning and was unable to be aroused, and mouth breathing. Offered continued assistance. Son appreciative. SW to continue to follow. Vane Lee, [employer]ER
--- NOTE | 2020-06-04 15:48 | CASEMGMT ---
Social Work Attempted to complete MDS with patient. Patient unable to be aroused. Spoke with nursing whom report pt overall decline. Notified Dr. Jaffe to evaluate and contact son for prognosis update. Will continue to follow. Vane Lee MSW FORMING MACHINE ADJUSTER
[2020-06-04 16:25] LABS: Bedside Glucose 334 mg/dL (70-110)
--- NOTE | 2020-06-04 16:25 | NURSING ---
Notified Dr. Jaffe of patients current blood sugar of 334. Received order to administer 15 units of humalog.
--- NOTE | 2020-06-04 17:22 | PN_ITS ---
Subjective: I spoke with resident, and resident son Richard today. I told her she is dying, I explained that is why she cannot eat, and she is sleeping most of the day. I let her know her best option is to discharge home with hospice. Resident agreeable. Richard told me that is a lot to digest, and process, I did let him know time frame for is days to few weeks, maybe less. Vitals/I&O's: Vital Signs Temp Pulse Resp BP Pulse Ox 97.4 F L 79 16 142/81 H 94 06/04/20 13:51 06/04/20 13:51 06/04/20 13:51 06/04/20 13:51 06/04/20 15:51 Oxygen Flow Rate (L/min) 4 Oxygen Delivery Method Nasal Cannula Weight: 73.4 kg Body Mass Index (BMI) 24.7 Finger Stick Blood Glucose 276 Intake and Output for Last 24 Hours 06/02/20 06/03/20 06/04/20 23:59 23:59 23:59 Intake Total 420 / 420 600 / 600 160 / 160 Balance 420 / 420 600 / 600 160 / 160 Microbiology Past 72 Hours 05/31/20 15:20 Urine, Catheterized Urine Culture - Final Culture exhibits no growth. Laboratory Results 06/03/20 21:06: POC Glucose 235 H 06/04/20 06:15: POC Glucose 260 H 06/04/20 10:43: POC Glucose 175 H 06/04/20 16:15: POC Glucose 334 H Past Medical History Past Medical History (Chronic Problems): Chronic Problems (Last Reviewed 06/01/20 @ 18:[address] 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) Apixaban PFO (patent foramen ovale) (Chronic) small Paroxysmal atrial fibrillation (Chronic) Essential hypertension (Chronic) Pressure ulcer of right foot, unstageable (Chronic) Delayed wound healing (Chronic) Malnutrition (Chronic) CKD (chronic kidney disease) stage 3, GFR 30-59 ml/min (Chronic) Sick sinus syndrome (Chronic) Cardiomyopathy, nonischemic (Chronic) HLD (hyperlipidemia) (Chronic) Hypothyroidism (Chronic) Chronic diastolic (congestive) heart failure (Chronic) Iron deficiency anemia (Chronic) GERD (gastroesophageal reflux disease) (Chronic) Cardiac pacemaker in situ (Chronic) DM2 (diabetes mellitus, type 2) (Chronic) Pulmonary hypertension (Chronic) PA systolic in May of 2020 is 72 with global systolic dysfunction of the RV, RV dilation and R atrial enlargment Medical History: Medical History (Last Reviewed 06/01/20 @ 18:[address] Queenie Mcfarlane, DO) Paroxysmal atrial fibrillation (Chronic) I48.0 Essential hypertension (Chronic) I10 Sick sinus syndrome (Chronic) I49.5 Cardiomyopathy, nonischemic (Chronic) I42.8 HLD (hyperlipidemia) (Chronic) E78.5 Hypothyroidism (Chronic) E03.9 Hypokalemia (Resolved) E87.6 Chronic diastolic (congestive) heart failure (Chronic) I50.32 Iron deficiency anemia (Chronic) D50.9 GERD (gastroesophageal reflux disease) (Chronic) K21.9 Cardiac pacemaker in situ (Chronic) Z95.0 DM2 (diabetes mellitus, type 2) (Chronic) E11.9 Pulmonary hypertension (Chronic) I27.2 PA systolic in May of 2020 is 72 with global systolic dysfunction of the RV, RV dilation and R atrial enlargment Acute kidney injury N17.9 Chronic diarrhea K52.9 Cystitis N30.90 Dementia F03.90 Depression F32.9 Encephalopathy G93.40 Gout M10.9 Postoperative anemia D64.9 Atrophic vaginitis N95.2 Depression F32.9 Gout M10.9 Acute deep vein thrombosis (DVT) of left lower extremity I82.402 Acute kidney injury N17.9 Debility R53.81 Diarrhea R19.7 Edema R60.9 Fracture of right femur S72.91XA Hypotension I95.9 Syncope and collapse R55 UTI (urinary tract infection) N39.0 Ulcer of right heel and midfoot, limited to breakdown of skin L97.411 Viral gastroenteritis A08.4 Acute kidney injury (Inactive) N17.9 Afib (Inactive) I48.91 Chronic diarrhea (Inactive) K52.9 Cystitis (Inactive) N30.90 no culture obtained DVT of axillary vein, acute left (Inactive) I82.A12 Dementia (Inactive) F03.90 Depression (Inactive) F32.9 Diarrhea (Inactive) R19.7 Dvt femoral (deep venous thrombosis) (Inactive) I82.419 left leg Encephalopathy (Inactive) G93.40 Fall (Inactive) W19.XXXA Gout (Inactive) M10.9 Muscle spasm (Inactive) M62.838 Pacemaker (Inactive) Z95.0 Postoperative anemia (Inactive) D64.9 Thrush (Inactive) B37.0 Allergies exenatide [From Byetta] Allergy (Verified 11/29/19 15:28) Unknown metformin Allergy (Verified 11/29/19 15:28) Rash Penicillins [PCN] Allergy (Verified 11/29/19 15:28) Unknown simvastatin [From Zocor] Adverse Reaction (Severe, Verified 11/29/19 15:28) Myalgias prednisone Adverse Reaction (Unknown, Verified 11/29/19 15:28) effects blood sugar amoxicillin [From Augmentin] Adverse Reaction (Verified 11/29/19 15:28) Diarrhea clavulanic acid [From Augmentin] Adverse Reaction (Verified 11/29/19 15:28) Diarrhea crestor Adverse Reaction (Intermediate, Uncoded 12/06/18 13:27) myalgia Home Medications: Ambulatory Orders Medication Instructions Recorded Apixaban [Eliquis] 5 mg PO BID 04/30/18 Ascorbic Acid [Vitamin C] 500 mg PO DAILY 08/18/18 Febuxostat [Uloric] 80 mg PO DAILY 08/18/18 Melatonin 6 mg PO QHS 08/18/18 Pantoprazole Sodium [Protonix] 40 mg PO DAILY 08/18/18 Digoxin 125 mcg PO DAILY 09/06/18 Metoprolol Tartrate [Lopressor 25 mg PO BID 09/06/18 (beta chanel)] Mirtazapine 15 mg PO QHS 09/06/18 Multivitamin with Minerals 1 tab PO DAILY 09/06/18 [Multiple Vitamin] Acetaminophen [Tylenol] 1,000 mg PO Q6H PRN PRN tab 09/30/18 sitagliptin 100 mg tablet 100 mg PO DAILY 11/29/19 Cranberry Conc/Ascorbic Acid 2 each PO BID 05/24/20 [Cranberry Plus Vitamin C Sftgl] Escitalopram Oxalate [Lexapro] 10 mg PO DAILY 05/24/20 Methenamine Hippurate [Hiprex] 1 gm PO BID 05/24/20 Furosemide [Lasix] 40 mg PO BID@1000,1800 05/28/20 Lidocaine [Lidoderm Patch] 2 patch TOPICAL DAILY 05/28/20 Menthol/Lanolin/Calamine/Znox 1 applic TOPICAL BID 05/28/20 [Calmoseptine Ointment] levoFLOXacin tablet [Levaquin 750 mg PO Q48@0600 05/28/20 tablet] Surgical History: Surgical History (Last Reviewed 06/01/20 @ 18:[address] Queenie Mcfarlane DO) H/O: hysterectomy Z90.710 History of bilateral knee replacement Z96.653 History of cholecystectomy Z90.49 Presence of vena cava filter Z95.828 implantation pacemakr pacemaker generator change Surgical History: cholecystectomy, hysterectomy, pacemaker implantation, total knee arthroplasty - Bilateral., - - IVC filter, right hip fracture repair. Psychiatric History: Anxiety, Depression ACCESSIONER History: No pertinent ACCESSIONER history Lives: Alone Smoking Status: Never smoker Tobacco Use: Non-smoker Alcohol: None Drugs: None - *Family History Paternal Family History: Family History (Last Reviewed 06/01/20 @ 18:[address] Queenie Mcfarlane DO) Father Myocardial infarction History Items: Heart Disease Maternal Family History: Family History (Last Reviewed 06/01/20 @ 18:[address] Queenie Mcfarlane DO) Father Myocardial infarction History Items: - - No marked maternal family history including heart disease, diabetes or cancer. Capacity - Capacity Assessment Tool Can the patient make a choice & communicate that choice?: Yes Can the patient understand benefits, risks and alternatives?: Yes Can the patient make a logical, rational choice?: Yes Is the choice the patient makes consistent w/ their values?: Yes Is there an impending, emergent risk to the patient?: Yes Does the patient have an Advance Directive?: Yes Is there a Surrogate Available?: Yes i.e. HCPOA: Yes i.e. close relative (spouse, child, parent, sibling)?: Yes Review of Systems Constitutional: Denies: Chills, Fever, Weight Change HEENT: Denies: Head Aches, Sinus Congestion, Sinus Drainage Cardiovascular: Denies: Chest Pain, Palpitations Respiratory: Denies: Cough, Shortness of breath at rest, Sputum production Gastrointestinal: Denies: Abdominal Pain, Nausea, Vomiting Genitourinary: Denies: Dysuria Musculoskeletal: Reports: Joint Pain - Bilateral hip pain.. Denies: Joint Tenderness Skin: Denies: Rash, Wounds Neurological: Denies: Numbness, Tingling, Focal weakness Psychiatric: Denies: Anxiety, Depression, Homicidal Ideations, Suicidal Ideations Hematologic/ Lymphatic: Denies: Easy Bruising, Easy Bleeding Patient Problems: Active and Suspected Problems (Last Reviewed 06/01/20 @ 18:[address] Queenie Mcfarlane, DO) Ankle sprain (Acute) Dehydration (Acute) Metabolic alkalosis (Acute) Secondary to volume contraction. Sciatica of right side (Acute) Acute renal failure superimposed on stage 3a chronic kidney disease (Acute) Osteoarthritis (Acute) Depression (Acute) Urinary tract infection (Suspected) it was a clean catch and had mixed organisms Elevated serum creatinine (Acute) Hypoxemia (Acute) etiology? BNP was elevated but she has stage 3 CRF and pulmonary HTN - Physical Exam Vitals/I&O's: Vital Signs Temp Pulse Resp BP Pulse Ox 97.4 F L 79 16 142/81 H 94 06/04/20 13:51 06/04/20 13:51 06/04/20 13:51 06/04/20 13:51 06/04/20 15:51 Oxygen Flow Rate (L/min) 4 Oxygen Delivery Method Nasal Cannula Weight: 73.4 kg Body Mass Index (BMI) 24.7 Finger Stick Blood Glucose 276 Intake and Output for Last 24 Hours 06/02/20 06/03/20 06/04/20 23:59 23:59 23:59 Intake Total 420 / 420 600 / 600 160 / 160 Balance 420 / 420 600 / 600 160 / 160 General: Alert, Oriented x3, Cooperative HEENT: Atraumatic, PERRLA, EOMI, Normocephalic Neck: Supple, No JVD, Negative Carotid Bruits Lungs: Clear to auscultation, Normal air movement Cardiovascular: Regular rate, No murmurs Abdomen: Bowel Sounds Present, Soft, Non Tender Extremities: No edema, Capillary Refill Less than 3 Seconds Skin: No rashes, No breakdown Musculoskeletal: No Tenderness to Palpation of Joints or Extremities Neurological: Cranial nerves II-XII grossly intact Psych/Mental Status: Normal Affect, Appropriate Microbiology Past 72 Hours 05/31/20 15:20 Urine, Catheterized Urine Culture - Final Culture exhibits no growth. Laboratory Results 06/03/20 21:06: POC Glucose 235 H 06/04/20 06:15: POC Glucose 260 H 06/04/20 10:43: POC Glucose 175 H 06/04/20 16:15: POC Glucose 334 H Current Medications Acetaminophen (Acetaminophen 500 Mg Tablet) 1,000 mg PO Q8H [facility] Last Admin: 06/04/20 15:06 Dose: 1,000 mg Documented by: Apixaban (Apixaban 5 Mg Tablet) 5 mg PO 0800,1700 [facility] Last Admin: 06/04/20 08:15 Dose: 5 mg Documented by: Ascorbic Acid (Ascorbic Acid 500 Mg Tablet) 500 mg PO DAILY [facility] Last Admin: 06/04/20 05:48 Dose: 500 mg Documented by: Bisacodyl (Bisacodyl 5 Mg Tablet) 5 mg PO DAILY PRN PRN Reason: Constipation Last Admin: 05/28/20 18:53 Dose: 5 mg Documented by: Calamine/Phenol (Menthol/Lanolin/Calamine/Znox 113 Gm Tube) 1 applic TOPICAL BID [facility]; Protocol Last Admin: 06/04/20 05:44 Dose: 1 applic Documented by: Calcitonin [place] (Calcitonin-[place] 1 [place]) 1 spray NARES DAILY [facility] Last Admin: 06/04/20 05:49 Dose: 1 spray Documented by: Calcium Carbonate (Calcium Carbonate 500 Mg Tablet) 500 mg PO TIDCM [facility] Last Admin: 06/04/20 12:30 Dose: 500 mg Documented by: Digoxin (Digoxin 125 Mcg Tablet) 125 mcg PO DAILY [facility] Last Admin: 06/04/20 05:48 Dose: 125 mcg Documented by: Ergocalciferol (Ergocalciferol 50,000 Unit Capsule) 50,000 unit PO Q7D [facility] Last Admin: 06/02/20 11:32 Dose: 50,000 unit Documented by: Escitalopram Oxalate (Escitalopram Oxalate 10 Mg Tablet) 10 mg PO DAILY [facility] Last Admin: 06/04/20 05:46 Dose: 10 mg Documented by: Febuxostat (Febuxostat 40 Mg Tablet) 80 mg PO DAILY [facility] Last Admin: 06/04/20 05:47 Dose: 80 mg Documented by: Gabapentin (Gabapentin 100 Mg Capsule) 200 mg PO TID [facility] Last Admin: 06/04/20 15:05 Dose: 200 mg Documented by: Sodium Chloride () 250 mls @ 15 mls/hr IV .[id number] PRN PRN Reason: Saline Flush Sodium Chloride () 250 mls @ 15 mls/hr IV .[id number] PRN PRN Reason: Additional IVPB Infusion Insulin Human Lispro (Insulin Lispro 100 Unit/Ml Insuln.Pen) 0 unit SC [facility]; Protocol Last Admin: 06/04/20 16:33 Dose: 15 u Documented by: Lidocaine (Lidocaine 5% Patch) 2 patch TOPICAL DAILY [facility]; Protocol Last Admin: 06/04/20 05:48 Dose: 2 patch Documented by: Linagliptin (Linagliptin 5 Mg Tablet) 5 mg PO DAILY [facility] Last Admin: 06/04/20 05:47 Dose: 5 mg Documented by: Methenamine Hippurate (Methenamine Hippurate 1 Gm Tablet) 1 gm PO BID [facility] Last Admin: 06/04/20 05:48 Dose: 1 gm Documented by: Metoprolol Tartrate (Metoprolol Tartrate 25 Mg Tablet) 25 mg PO BID [facility] Last Admin: 06/04/20 05:48 Dose: 25 mg Documented by: Mirtazapine (Mirtazapine 15 Mg Tablet) 15 mg PO QHS [facility] Last Admin: 06/03/20 20:06 Dose: 15 mg Documented by: Morphine Sulfate (Morphine (Oral Solution) 10mg/0.5ml Syringe) 10 mg SL Q2H PRN PRN PRN Reason: Pain Score 6-10 Last Admin: 06/04/20 12:00 Dose: 10 mg Documented by: Multivitamins/Minerals (Multivitamins,Ther W-Minerals Tablet) 1 tablet PO DAILY@0800 [facility] Last Admin: 06/04/20 08:15 Dose: 1 tablet Documented by: Non-Formulary Medication (Lactaid) 1 tab PO DAILY PRN PRN Reason: prevention of gas,bloating,& diarrhea w/milk inges Last Admin: 05/30/20 20:08 Dose: 1 tab Documented by: Nutritional Formula (Lactose Free) (Ensure Enlive 120 Ml Liquid) 120 ml PO TID [facility] Last Admin: 06/04/20 15:06 Dose: 120 ml Documented by: Nystatin (Nystatin Powder 15gm Bottle) 1 applic TOPICAL 0600,2200 [facility]; Protocol Last Admin: 06/04/20 05:47 Dose: 1 applic Documented by: Ondansetron HCl (Ondansetron Odt 4 Mg Tablet) 4 mg PO Q6H PRN PRN PRN Reason: NAUSEA Last Admin: 05/30/20 06:50 Dose: 4 mg Documented by: Pantoprazole Sodium (Pantoprazole Sodium 40 Mg Tablet) 40 mg PO DAILY [facility] Last Admin: 06/04/20 05:48 Dose: 40 mg Documented by: Potassium Chloride (Potassium Chloride Oral Tablet 20 Meq) [facility] Last Admin: 06/04/20 08:15 Dose: 20 meq Documented by: Senna/Docusate Sodium (Senna/Docusate Sodium 1 Tablet) 2 tablet PO DAILY [facility] Last Admin: 06/04/20 05:45 Dose: 2 tablet Documented by: Sodium Chloride (0.9% Saline Lock 10 Ml Syringe) 10 - 40 ml IV UD PRN PRN Reason: SALINE FLUSH Last Admin: 06/04/20 11:46 Dose: 10 ml Documented by: Tramadol HCl (Tramadol 50 Mg Tablet) 50 mg PO Q6H PRN PRN PRN Reason: pain 3-5 Last Admin: 06/03/20 08:10 Dose: 50 mg Documented by: Tuberculin PPD (Tuberculin,Purif.Prot.Deriv. 50 Tu/Ml Vial) 5 tu ID [id number] ONE Stop: 06/05/20 10:01 Assessment/Plan All Active Problems (Last Reviewed 06/01/20 @ 18:[address] Queenie Mcfarlane, DO) Ankle sprain (Acute) Dehydration (Acute) Metabolic alkalosis (Acute) Sciatica of right side (Acute) Acute renal failure superimposed on stage 3a chronic kidney disease (Acute) Osteoarthritis (Acute) Depression (Acute) Nondisplaced fracture of medial malleolus of right tibia, initial encounter for closed fracture (Ruled-out) Elevated serum creatinine (Acute) Hypoxemia (Acute) Blister of right heel (Resolved) Hypokalemia (Resolved) Acute gastroenteritis (Resolved) Chest pain (Resolved) Dehydration (Resolved) Dyspnea, unspecified (Resolved) Elevated lactic acid level (Resolved) Fall (Resolved) Fatigue (Resolved) Metabolic encephalopathy (Resolved) Palpitations (Resolved) UTI (urinary tract infection) (Resolved) 85 year old female with below past medical history hospitalized after fall, ankle pain. She is dying. * End of life - Recommend discharging home with hospice, resident in agreement, son needs time to process information.
[2020-06-04] MEDS: Mirtazapine 15 MG Tablet PO (20:42)
[2020-06-04 22:00] LABS: Bedside Glucose 226 mg/dL (70-110)
[2020-06-05 05:14] VITALS: BP 134/78; PULSE 72; RESP 18; TEMP 36.2; O2SAT 96
[2020-06-05] MEDS: Pantoprazole Sodium 40 MG Tablet PO (05:14)
[2020-06-05] MEDS: LINAGLIPTIN 5 MG TABLET PO (05:14)
[2020-06-05] MEDS: Febuxostat 40 MG TABLET 80 MG PO (05:14)
[2020-06-05] MEDS: Senna/Docusate Sodium 1 Tablet 2 TABLET PO (05:14)
[2020-06-05] MEDS: Metoprolol Tartrate 25 MG Tablet PO ×2 (05:14→16:54)
[2020-06-05] MEDS: Ascorbic Acid 500 MG Tablet PO (05:14)
[2020-06-05] MEDS: Methenamine Hippurate 1 GM Tablet PO ×2 (05:14→16:55)
[2020-06-05] MEDS: Gabapentin 100 MG Capsule 200 MG PO ×3 (05:14→23:09)
[2020-06-05 05:15] VITALS: BP 134/78; PULSE 72
[2020-06-05] MEDS: Digoxin 125 MCG Tablet PO (05:15)
[2020-06-05] MEDS: Acetaminophen 500 MG Tablet 1000 MG PO ×3 (05:15→23:09)
[2020-06-05] MEDS: Menthol/Lanolin/Calamine/Znox 113 GM Tube 1 APPLIC TOPICAL ×2 (05:15→16:55)
[2020-06-05] MEDS: Escitalopram Oxalate 10 MG Tablet PO (05:15)
[2020-06-05] MEDS: Nystatin Powder 15gm Bottle 1 APPLIC TOPICAL ×2 (05:16→23:08)
[2020-06-05] MEDS: Calcitonin-Salmon 1 SPRAY SPRAY NARES (05:16)
[2020-06-05] MEDS: Lidocaine 5% Patch 2 PATCH TOPICAL (05:16)
[2020-06-05 05:57] LABS: Basophil# 0.01 X10^3/uL; Basophil% 0.1 % (0-1); Eosinophil# 0.02 X10^3/uL; Eosinophils% 0.2 % (0-5); Hematocrit 45.9 % (37-47); Lymphocyte % 13.2 % (19-41); Mean Corp Hgb Conc 30.5 g/dL (32-36); Mean Corpuscular Hgb 27.3 pg (27.0-32.0); Mean Corpuscular Volume 89.6 fL (81-99); Mean Platelet Vol. 11.6 fl (6.2-12.0); Monocyte# 0.79 X10^3/uL; Monocyte% 8.7 % (0-10); NRBC Flagged by Analyzer 0 % (0-5); Neutrophil # 7.01 X10^3/uL (2.7-7.7); Neutrophil % 76.9 % (47-70); Platelet Count 135 K/mm3 (150-450); RBC Distribution Width CV 14.8 % (11.6-14.6); RBC Distribution Width SD 49.1 fl (35.1-43.9); Red Blood Count 5.12 M/mm3 (4.2-5.4); White Blood Count 9.1 K/mm3 (4.4-11.0)
[2020-06-05 06:16] LABS: Bedside Glucose 166 mg/dL (70-110)
[2020-06-05 06:45] LABS: Anion Gap 2 (5-15); BUN 39 mg/dL (7-18); BUN/Creat Ratio 58.5 RATIO (10-20); Chloride 104 mmol/L (98-107); Creatinine, Serum 0.67 mg/dL (0.55-1.02); EST Glomerular Filtration Rate 89 mL/min (>60); Est Glom Filt Rate - Afr Amer 108 mL/min (>60); Glucose 177 mg/dL (74-106); Potassium 4.7 mmol/L (3.5-5.1); Sodium Level 140 mmol/L (136-145)
[2020-06-05 06:58] VITALS: O2SAT 95
[2020-06-05] MEDS: Calcium Carbonate 500 MG Tablet PO ×3 (08:39→16:54)
[2020-06-05] MEDS: Insulin Lispro 100 UNIT/ML INSULN.PEN SC ×3 (08:39→23:06)
[2020-06-05] MEDS: APIXABAN 5 MG TABLET PO ×2 (08:39→16:54)
[2020-06-05] MEDS: Multivitamins,Ther W-Minerals Tablet 1 TABLET PO (08:40)
[2020-06-05] MEDS: Potassium Chloride Oral Tablet 20 MEQ PO (08:40)
[2020-06-05] MEDS: traMADol 50 MG Tablet PO (08:45)
[2020-06-05] MEDS: Tuberculin,Purif.prot.deriv. 50 TU/ML Vial 5 ML ID (10:29)
[2020-06-05 10:55] LABS: Bedside Glucose 177 mg/dL (70-110)
[2020-06-05] MEDS: morphine (oral solution) 10MG/0.5ML Syringe 10 MG SL (11:47)
--- NOTE | 2020-06-05 13:55 | CASEMGMT ---
Social Work Son present watching pt in therapy. Spoke with son and he stated Thursday when he was here to visit, she was more alert; however, speaking with Dr. Jaffe and this worker yesterday, sounds like pt was the complete opposite. Explained this morning pt was still not eating and hard to awaken, but is currently dressed and in the therapy gym. During the session, it took x2 assist to stand at parallel bars, legs difficult to straighten and could stand for barely for 15-30 seconds. Pt visibly exhausted and SOB. Son expressed the realization of seeing pt like this. Explained pt did agree to hospice to Dr. Jaffe, but understands that can change. Offered to assist with any DC plans with any route. Explained pt could DC to SNF or see if she is eligible for IPU. Son expressed understanding. Encouraged to speak further with patient - see how the care plan meeting goes the following day - and SW to assist with plan. Son appreciative. SW to continue to follow. Vane Lee ,VALVE INSERTER DIRECTOR OF SURGERY
[2020-06-05 14:30] VITALS: BP 128/76; PULSE 78; RESP 24; TEMP 37.2; O2SAT 95
[2020-06-05 16:41] LABS: Bedside Glucose 133 mg/dL (70-110)
[2020-06-05 16:54] VITALS: BP 126/71; PULSE 68
[2020-06-05] MEDS: Bisacodyl 5 MG Tablet PO (17:00)
[2020-06-05 21:41] LABS: Bedside Glucose 243 mg/dL (70-110)
[2020-06-05] MEDS: Mirtazapine 15 MG Tablet PO (23:09)
[2020-06-06] VITALS (7 sets, daily range): BP systolic 98–136; BP diastolic 56–60; PULSE 65–76; RESP 16–18; TEMP 36.6–36.9; O2SAT 90–94
[2020-06-06] MEDS: Menthol/Lanolin/Calamine/Znox 113 GM Tube 1 APPLIC TOPICAL (06:45)
[2020-06-06] MEDS: Methenamine Hippurate 1 GM Tablet PO (06:45)
[2020-06-06] MEDS: Digoxin 125 MCG Tablet PO (06:46)
[2020-06-06] MEDS: Escitalopram Oxalate 10 MG Tablet PO (06:47)
[2020-06-06] MEDS: Metoprolol Tartrate 25 MG Tablet PO (06:47)
[2020-06-06] MEDS: Lidocaine 5% Patch 2 PATCH TOPICAL (06:47)
[2020-06-06] MEDS: Nystatin Powder 15gm Bottle 1 APPLIC TOPICAL (06:48)
[2020-06-06] MEDS: Gabapentin 100 MG Capsule 200 MG PO ×2 (06:48→13:26)
[2020-06-06] MEDS: Calcitonin-Salmon 1 SPRAY SPRAY NARES (06:48)
[2020-06-06] MEDS: Senna/Docusate Sodium 1 Tablet 2 TABLET PO (06:49)
[2020-06-06] MEDS: Pantoprazole Sodium 40 MG Tablet PO (06:49)
[2020-06-06] MEDS: LINAGLIPTIN 5 MG TABLET PO (06:49)
[2020-06-06] MEDS: Febuxostat 40 MG TABLET 80 MG PO (06:49)
[2020-06-06] MEDS: Acetaminophen 500 MG Tablet 1000 MG PO ×2 (06:49→13:26)
[2020-06-06] MEDS: Ascorbic Acid 500 MG Tablet PO (06:50)
[2020-06-06 07:11] LABS: Bedside Glucose 191 mg/dL (70-110)
[2020-06-06] MEDS: Potassium Chloride Oral Tablet 20 MEQ PO (08:10)
[2020-06-06] MEDS: Multivitamins,Ther W-Minerals Tablet 1 TABLET PO (08:10)
[2020-06-06] MEDS: APIXABAN 5 MG TABLET PO (08:11)
[2020-06-06] MEDS: Insulin Lispro 100 UNIT/ML INSULN.PEN SC ×2 (08:11→11:52)
[2020-06-06] MEDS: Calcium Carbonate 500 MG Tablet PO (08:16)
[2020-06-06 10:41] LABS: Bedside Glucose 192 mg/dL (70-110)
--- NOTE | 2020-06-06 11:37 | CON.PCM_ITS ---
History of Present Illness Requesting physician: [] Primary care physician: Dr. Saroj Fajardo DO - History of Present Illness The patient is a 85 year old F [] Patient Problems: Chronic Problems (Last Reviewed 06/01/20 @ 18:[address] 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) (Chronic) group home current use of anticoagulant (Chronic) Apixaban PFO (patent foramen ovale) (Chronic) small Paroxysmal atrial fibrillation (Chronic) Essential hypertension (Chronic) Pressure ulcer of right foot, unstageable (Chronic) Delayed wound healing (Chronic) Malnutrition (Chronic) CKD (chronic kidney disease) stage 3, GFR 30-59 ml/min (Chronic) Sick sinus syndrome (Chronic) Cardiomyopathy, nonischemic (Chronic) HLD (hyperlipidemia) (Chronic) Hypothyroidism (Chronic) Chronic diastolic (congestive) heart failure (Chronic) Iron deficiency anemia (Chronic) GERD (gastroesophageal reflux disease) (Chronic) Cardiac pacemaker in situ (Chronic) DM2 (diabetes mellitus, type 2) (Chronic) Pulmonary hypertension (Chronic) PA systolic in May of 2020 is 72 with global systolic dysfunction of the RV, RV dilation and R atrial enlargment Surgical History: cholecystectomy, hysterectomy, pacemaker implantation, total knee arthroplasty - Bilateral., - - IVC filter, right hip fracture repair. Psychiatric History: Anxiety, Depression Home Medications: Ambulatory Orders Medication Instructions Recorded Apixaban [Eliquis] 5 mg PO BID 04/30/18 Ascorbic Acid [Vitamin C] 500 mg PO DAILY 08/18/18 Febuxostat [Uloric] 80 mg PO DAILY 08/18/18 Melatonin 6 mg PO QHS 08/18/18 Pantoprazole Sodium [Protonix] 40 mg PO DAILY 08/18/18 Digoxin 125 mcg PO DAILY 09/06/18 Metoprolol Tartrate [Lopressor 25 mg PO BID 09/06/18 (beta chanel)] Mirtazapine 15 mg PO QHS 09/06/18 Multivitamin with Minerals 1 tab PO DAILY 09/06/18 [Multiple Vitamin] Acetaminophen [Tylenol] 1,000 mg PO Q6H PRN PRN tab 09/30/18 sitagliptin 100 mg tablet 100 mg PO DAILY 11/29/19 Cranberry Conc/Ascorbic Acid 2 each PO BID 05/24/20 [Cranberry Plus Vitamin C Sftgl] Escitalopram Oxalate [Lexapro] 10 mg PO DAILY 05/24/20 Methenamine Hippurate [Hiprex] 1 gm PO BID 05/24/20 Furosemide [Lasix] 40 mg PO BID@1000,1800 05/28/20 Lidocaine [Lidoderm Patch] 2 patch TOPICAL DAILY 05/28/20 Menthol/Lanolin/Calamine/Znox 1 applic TOPICAL BID 05/28/20 [Calmoseptine Ointment] levoFLOXacin tablet [Levaquin 750 mg PO Q48@0600 05/28/20 tablet] Allergies exenatide [From Byetta] Allergy (Verified 11/29/19 15:28) Unknown metformin Allergy (Verified 11/29/19 15:28) Rash Penicillins [PCN] Allergy (Verified 11/29/19 15:28) Unknown simvastatin [From Zocor] Adverse Reaction (Severe, Verified 11/29/19 15:28) Myalgias prednisone Adverse Reaction (Unknown, Verified 11/29/19 15:28) effects blood sugar amoxicillin [From Augmentin] Adverse Reaction (Verified 11/29/19 15:28) Diarrhea clavulanic acid [From Augmentin] Adverse Reaction (Verified 11/29/19 15:28) Diarrhea crestor Adverse Reaction (Intermediate, Uncoded 12/06/18 13:27) myalgia Paternal Family History: Family History (Last Reviewed 06/01/20 @ 18:[address] Queenie Mcfarlane DO) Father Myocardial infarction History Items: Heart Disease Maternal Family History: Family History (Last Reviewed 06/01/20 @ 18:[address] Queenie Mcfarlane DO) Father Myocardial infarction History Items: - - No marked maternal family history including heart disease, diabetes or cancer. - Social History Lives: Alone Smoking Status: Never smoker Tobacco Use: Non-smoker Alcohol: None Drugs: None Physical Exam Objective: Vital Signs Temp Pulse Resp BP Pulse Ox 97.9 F 76 18 98/56 L 93 06/06/20 04:25 06/06/20 06:47 06/06/20 04:25 06/06/20 06:47 06/06/20 07:30 Oxygen Flow Rate (L/min) 2 Oxygen Delivery Method Nasal Cannula Weight: 73.4 kg Body Mass Index (BMI) 24.7 Finger Stick Blood Glucose 276 Intake and Output for Last 24 Hours 06/04/20 06/05/20 06/06/20 23:59 23:59 23:59 Intake Total 160 / 160 420 / 420 Balance 160 / 160 420 / 420 Microbiology Past 72 Hours 05/31/20 15:20 Urine Culture - Final Urine, Catheterized Culture exhibits no growth. Assessment/Plan All Active Problems (Last Reviewed 06/01/20 @ 18:[address] Queenie Mcfarlane, DO) Ankle sprain (Acute) Dehydration (Acute) Metabolic alkalosis (Acute) Sciatica of right side (Acute) Acute renal failure superimposed on stage 3a chronic kidney disease (Acute) Osteoarthritis (Acute) Depression (Acute) Nondisplaced fracture of medial malleolus of right tibia, initial encounter for closed fracture (Ruled-out) Elevated serum creatinine (Acute) Hypoxemia (Acute) Blister of right heel (Resolved) Hypokalemia (Resolved) Acute gastroenteritis (Resolved) Chest pain (Resolved) Dehydration (Resolved) Dyspnea, unspecified (Resolved) Elevated lactic acid level (Resolved) Fall (Resolved) Fatigue (Resolved) Metabolic encephalopathy (Resolved) Palpitations (Resolved) UTI (urinary tract infection) (Resolved)
--- NOTE | 2020-06-06 11:47 | CASEMGMT ---
Addendum entered by Vane Lee 06/06/20 14:09: Therapy, this worker, hospice clinical marketer, son and DIL met to discuss hospice and options. Pt remains agreeable and consistent with hospice wishes. Son agreeable to IPU. Notified IDT. Scheduled cot transport through [facility] for 2:45 pm. Plan: DC 06/06 IPU [facility] Original Note: Social Work Nursing notified this worker pt declining this date. Pt's O2 needed increased, not eating, continues to be in pain, and refused therapy. CONTINUOUS IMPROVEMENT FACILITATOR from Palliative present and assisting with pain, but will await further intervention if hospice will be consulted. IDT agreeable patient is appropriate for IPU and pt expressed end of life wishes. Care plan meeting scheduled this date. Contacted son to visit sooner and offered to meet with hospice rep. Son agreeable. Marilee Alexander aware and is agreeable to IPU. Referral made to [facility] IPU. Will continue to follow. KELSEY EdwardW
[2020-06-06] MEDS: morphine (oral solution) 10MG/0.5ML Syringe 10 MG SL (11:51)
--- NOTE | 2020-06-06 14:18 | PCM.DC ---
- Discharge Diagnoses Current Active Problems: Current Active and Chronic Problems (Last Reviewed 06/01/20 @ 18:[address] Queenie Mcfarlane, DO) Ankle sprain (Acute) Dehydration (Acute) Metabolic alkalosis (Acute) Secondary to volume contraction. 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 BNP was elevated but she has stage 3 CRF and pulmonary HTN PFO (patent foramen ovale) (Chronic) small Paroxysmal atrial fibrillation (Chronic) Essential hypertension (Chronic) Pressure ulcer of right foot, unstageable (Chronic) Delayed wound healing (Chronic) Malnutrition (Chronic) CKD (chronic kidney disease) stage 3, GFR 30-59 ml/min (Chronic) Sick sinus syndrome (Chronic) Cardiomyopathy, nonischemic (Chronic) HLD (hyperlipidemia) (Chronic) Hypothyroidism (Chronic) Chronic diastolic (congestive) heart failure (Chronic) Iron deficiency anemia (Chronic) GERD (gastroesophageal reflux disease) (Chronic) Cardiac pacemaker in situ (Chronic) DM2 (diabetes mellitus, type 2) (Chronic) Pulmonary hypertension (Chronic) PA systolic in May of 2020 is 72 with global systolic dysfunction of the RV, RV dilation and R atrial enlargment You will use the following diet at home:: No restrictions, Regular Your food should be the consistency of: Regular Your liquids should be the consistency of: Regular/Thin Discharge Activity: Return to Normal Activity, May Shower, Use Walker Allergies/Adverse Reactions: Allergies exenatide [From [place]] Allergy (Verified 11/29/19 15:28) Unknown metformin Allergy (Verified 11/29/19 15:28) Rash Penicillins [PCN] Allergy (Verified 11/29/19 15:28) Unknown simvastatin [From Zocor] Adverse Reaction (Severe, Verified 11/29/19 15:28) Myalgias prednisone Adverse Reaction (Unknown, Verified 11/29/19 15:28) effects blood sugar amoxicillin [From Augmentin] Adverse Reaction (Verified 11/29/19 15:28) Diarrhea clavulanic acid [From Augmentin] Adverse Reaction (Verified 11/29/19 15:28) Diarrhea crestor Adverse Reaction (Intermediate, Uncoded 12/06/18 13:27) myalgia Primary Care Physician: Saroj Fajardo DO [Primary Care Provider] - Please follow up with your Primary Care Physician in: As needed. Test Results: Test results from this visit will be discussed in further detail at your follow-up appointment, if applicable. Please Follow Up With: Saroj Fajardo DO When: 2 weeks Please Follow Up With: Ismael Babb MD When: N/A. Please Follow Up With: Chauncey Bardales MD When: N/A. Proposed Discharge Date: 06/06/20
--- NOTE | 2020-06-06 14:20 | PCM.DC.SUM ---
Discharge Date and Diagnosis - Problem List Patient Problems: Active and Suspected Problems (Last Reviewed 06/01/20 @ 18:[address] Queenie Mcfarlane DO) Ankle sprain (Acute) Dehydration (Acute) Metabolic alkalosis (Acute) Secondary to volume contraction. Sciatica of right side (Acute) Acute renal failure superimposed on stage 3a chronic kidney disease (Acute) Osteoarthritis (Acute) Depression (Acute) Urinary tract infection (Suspected) it was a clean catch and had mixed organisms Elevated serum creatinine (Acute) Hypoxemia (Acute) etiology? BNP was elevated but she has stage 3 CRF and pulmonary HTN Date of Admission: 05/30/20 Date of Discharge: 06/06/20 - Primary Discharge Diagnosis Acute Problems: Active Problems (Last Reviewed 06/01/20 @ 18:[address] Queenie Mcfarlane DO) Ankle sprain (Acute) Dehydration (Acute) Metabolic alkalosis (Acute) Secondary to volume contraction. Sciatica of right side (Acute) Acute renal failure superimposed on stage 3a chronic kidney disease (Acute) Osteoarthritis (Acute) Depression (Acute) Elevated serum creatinine (Acute) Hypoxemia (Acute) etiology? BNP was elevated but she has stage 3 CRF and pulmonary HTN Suspected Problems: Suspected Problems (Last Reviewed 06/01/20 @ 18:[address] Queenie Mcfarlane DO) Urinary tract infection (Suspected) it was a clean catch and had mixed organisms - Secondary Discharge Diagnosis Chronic Problems: Chronic Problems (Last Reviewed 06/01/20 @ 18:[address] 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 PFO (patent foramen ovale) (Chronic) small Paroxysmal atrial fibrillation (Chronic) Essential hypertension (Chronic) Pressure ulcer of right foot, unstageable (Chronic) Delayed wound healing (Chronic) Malnutrition (Chronic) CKD (chronic kidney disease) stage 3, GFR 30-59 ml/min (Chronic) Sick sinus syndrome (Chronic) Cardiomyopathy, nonischemic (Chronic) HLD (hyperlipidemia) (Chronic) Hypothyroidism (Chronic) Chronic diastolic (congestive) heart failure (Chronic) Iron deficiency anemia (Chronic) GERD (gastroesophageal reflux disease) (Chronic) Cardiac pacemaker in situ (Chronic) DM2 (diabetes mellitus, type 2) (Chronic) Pulmonary hypertension (Chronic) PA systolic in May of 2020 is 72 with global systolic dysfunction of the RV, RV dilation and R atrial enlargment Hospital Course and Treatment Imaging Results: 06/06/20 08:32 Diet: Regular - General Food consistency:: Mechanical (Minced/Moist) Liquid Consistency:: [place]/Mildly Thick Is pt able to select menu?: Yes Diet Comments: total feed, NO STRAWS Clinical Impression(s) from Imaging Studies Chest X-Ray 06/03/20 10:38 IMPRESSION: Poor inspiration with some bibasilar atelectasis per Electronically Signed: Indra Schultz MD at 11:42 EDT Tel , Service support , Labs (Last 48 Hours) 06/04/20 06/04/20 06/05/20 16:15 21:48 05:22 WBC 9.1 RBC 5.12 Hgb 14.0 Hct 45.9 MCV 89.6 MCH 27.3 MCHC 30.5 L RDW Std Deviation 49.1 H RDW Coeff of Rema 14.8 H Plt Count 135 L MPV 11.6 Immature Gran % (Auto) 0.900 Neut % (Auto) 76.9 H Lymph % (Auto) 13.2 L [place] % (Auto) 8.7 Eos % (Auto) 0.2 Baso % (Auto) 0.1 Absolute Neuts (auto) 7.0 Absolute Lymphs (auto) 1.20 Nucleated RBC % 0 Sodium Potassium Chloride Carbon Dioxide Anion Gap BUN Creatinine Estim Creat Clear Calc Est GFR (MDRD) Af Amer Est GFR (MDRD) Non-Af BUN/Creatinine Ratio Glucose Calcium POC Glucose 334 H 226 H 06/05/20 06/05/20 06/05/20 05:22 06:00 10:46 WBC RBC Hgb Hct MCV MCH MCHC RDW Std Deviation RDW Coeff of Rema Plt Count MPV Immature Gran % (Auto) Neut % (Auto) Lymph % (Auto) [place] % (Auto) Eos % (Auto) Baso % (Auto) Absolute Neuts (auto) Absolute Lymphs (auto) Nucleated RBC % Sodium 140 Potassium 4.7 Chloride 104 Carbon Dioxide 34.0 H Anion Gap 2 L BUN 39 H Creatinine 0.67 Estim Creat Clear Calc 40.00 Est GFR (MDRD) Af Amer 108 Est GFR (MDRD) Non-Af 89 BUN/Creatinine Ratio 58.5 H Glucose 177 H Calcium 9.0 POC Glucose 166 H 177 H 06/05/20 06/05/20 06/06/20 16:25 21:18 07:06 WBC RBC Hgb Hct MCV MCH MCHC RDW Std Deviation RDW Coeff of Rema Plt Count MPV Immature Gran % (Auto) Neut % (Auto) Lymph % (Auto) [place] % (Auto) Eos % (Auto) Baso % (Auto) Absolute Neuts (auto) Absolute Lymphs (auto) Nucleated RBC % Sodium Potassium Chloride Carbon Dioxide Anion Gap BUN Creatinine Estim Creat Clear Calc Est GFR (MDRD) Af Amer Est GFR (MDRD) Non-Af BUN/Creatinine Ratio Glucose Calcium POC Glucose 133 H 243 H 191 H 06/06/20 10:34 WBC RBC Hgb Hct MCV MCH MCHC RDW Std Deviation RDW Coeff of Rema Plt Count MPV Immature Gran % (Auto) Neut % (Auto) Lymph % (Auto) [place] % (Auto) Eos % (Auto) Baso % (Auto) Absolute Neuts (auto) Absolute Lymphs (auto) Nucleated RBC % Sodium Potassium Chloride Carbon Dioxide Anion Gap BUN Creatinine Estim Creat Clear Calc Est GFR (MDRD) Af Amer Est GFR (MDRD) Non-Af BUN/Creatinine Ratio Glucose Calcium POC Glucose 192 H Operations: None, - Procedures: None Summary of Care Provided: The patient is a 85 year old Female with below past medical history, failed TCU, actively dying. Discharge to Inpatient Hospice Facility. Patient Problems: Active and Suspected Problems (Last Reviewed 06/01/20 @ 18:[address] Queenie Mcfarlane, DO) Ankle sprain (Acute) Dehydration (Acute) Metabolic alkalosis (Acute) Secondary to volume contraction. Sciatica of right side (Acute) Acute renal failure superimposed on stage 3a chronic kidney disease (Acute) Osteoarthritis (Acute) Depression (Acute) Urinary tract infection (Suspected) it was a clean catch and had mixed organisms Elevated serum creatinine (Acute) Hypoxemia (Acute) etiology? BNP was elevated but she has stage 3 CRF and pulmonary HTN - Physical Exam Vitals/I&O's: Vital Signs Temp Pulse Resp BP Pulse Ox 97.9 F 76 18 98/56 L 93 06/06/20 04:25 06/06/20 06:47 06/06/20 04:25 06/06/20 06:47 06/06/20 07:30 Oxygen Flow Rate (L/min) 4 Oxygen Delivery Method Nasal Cannula Weight: 73.4 kg Body Mass Index (BMI) 24.7 Finger Stick Blood Glucose 276 Intake and Output for Last 24 Hours 06/04/20 06/05/20 06/06/20 23:59 23:59 23:59 Intake Total 160 / 160 420 / 420 Balance 160 / 160 420 / 420 Laboratory Results 06/05/20 16:25: POC Glucose 133 H 06/05/20 21:18: POC Glucose 243 H 06/06/20 07:06: POC Glucose 191 H 06/06/20 10:34: POC Glucose 192 H Current Medications Acetaminophen (Acetaminophen 500 Mg Tablet) 1,000 mg PO Q8H [facility] Last Admin: 06/06/20 13:26 Dose: 1,000 mg Documented by: Apixaban (Apixaban 5 Mg Tablet) 5 mg PO 0800,1700 [facility] Last Admin: 06/06/20 08:11 Dose: 5 mg Documented by: Ascorbic Acid (Ascorbic Acid 500 Mg Tablet) 500 mg PO DAILY [facility] Last Admin: 06/06/20 06:50 Dose: 500 mg Documented by: Bisacodyl (Bisacodyl 5 Mg Tablet) 5 mg PO DAILY PRN PRN Reason: Constipation Last Admin: 06/05/20 17:00 Dose: 5 mg Documented by: Calamine/Phenol (Menthol/Lanolin/Calamine/Znox 113 Gm Tube) 1 applic TOPICAL BID [facility]; Protocol Last Admin: 06/06/20 06:45 Dose: 1 applic Documented by: Calcitonin [place] (Calcitonin-[place] 1 Castaner Castaner) 1 spray NARES DAILY [facility] Last Admin: 06/06/20 06:48 Dose: 1 spray Documented by: Calcium Carbonate (Calcium Carbonate 500 Mg Tablet) 500 mg PO TIDCM [facility] Last Admin: 06/06/20 11:54 Dose: Not Given Documented by: Digoxin (Digoxin 125 Mcg Tablet) 125 mcg PO DAILY [facility] Last Admin: 06/06/20 06:46 Dose: 125 mcg Documented by: Ergocalciferol (Ergocalciferol 50,000 Unit Capsule) 50,000 unit PO Q7D [facility] Last Admin: 06/02/20 11:32 Dose: 50,000 unit Documented by: Escitalopram Oxalate (Escitalopram Oxalate 10 Mg Tablet) 10 mg PO DAILY [facility] Last Admin: 06/06/20 06:47 Dose: 10 mg Documented by: Febuxostat (Febuxostat 40 Mg Tablet) 80 mg PO DAILY [facility] Last Admin: 06/06/20 06:49 Dose: 80 mg Documented by: Gabapentin (Gabapentin 100 Mg Capsule) 200 mg PO TID [facility] Last Admin: 06/06/20 13:26 Dose: 200 mg Documented by: Sodium Chloride () 250 mls @ 15 mls/hr IV .[id number] PRN PRN Reason: Saline Flush Sodium Chloride () 250 mls @ 15 mls/hr IV .[id number] PRN PRN Reason: Additional IVPB Infusion Insulin Human Lispro (Insulin Lispro 100 Unit/Ml Insuln.Pen) 0 unit SC ACHS [facility]; Protocol Last Admin: 06/06/20 11:52 Dose: 3 u Documented by: Lidocaine (Lidocaine 5% Patch) 2 patch TOPICAL DAILY [facility]; Protocol Last Admin: 06/06/20 06:47 Dose: 2 patch Documented by: Linagliptin (Linagliptin 5 Mg Tablet) 5 mg PO DAILY [facility] Last Admin: 06/06/20 06:49 Dose: 5 mg Documented by: Methenamine Hippurate (Methenamine Hippurate 1 Gm Tablet) 1 gm PO BID [facility] Last Admin: 06/06/20 06:45 Dose: 1 gm Documented by: Metoprolol Tartrate (Metoprolol Tartrate 25 Mg Tablet) 25 mg PO BID [facility] Last Admin: 06/06/20 06:47 Dose: 25 mg Documented by: Mirtazapine (Mirtazapine 15 Mg Tablet) 15 mg PO QHS [facility] Last Admin: 06/05/20 23:09 Dose: 15 mg Documented by: Morphine Sulfate (Morphine (Oral Solution) 10mg/0.5ml Syringe) 10 mg SL Q2H PRN PRN PRN Reason: Pain Score 6-10 Last Admin: 06/06/20 11:51 Dose: 10 mg Documented by: Multivitamins/Minerals (Multivitamins,Ther W-Minerals Tablet) 1 tablet PO DAILY@0800 [facility] Last Admin: 06/06/20 08:10 Dose: 1 tablet Documented by: Non-Formulary Medication (Lactaid) 1 tab PO DAILY PRN PRN Reason: prevention of gas,bloating,& diarrhea w/milk inges Last Admin: 05/30/20 20:08 Dose: 1 tab Documented by: Nutritional Formula (Lactose Free) (Ensure Enlive 120 Ml Liquid) 120 ml PO TID [facility] Last Admin: 06/06/20 14:01 Dose: 120 ml Documented by: Nystatin (Nystatin Powder 15gm Bottle) 1 applic TOPICAL 0600,2200 [facility]; Protocol Last Admin: 06/06/20 06:48 Dose: 1 applic Documented by: Ondansetron HCl (Ondansetron Odt 4 Mg Tablet) 4 mg PO Q6H PRN PRN PRN Reason: NAUSEA Last Admin: 05/30/20 06:50 Dose: 4 mg Documented by: Pantoprazole Sodium (Pantoprazole Sodium 40 Mg Tablet) 40 mg PO DAILY [facility] Last Admin: 06/06/20 06:49 Dose: 40 mg Documented by: Potassium Chloride (Potassium Chloride Oral Tablet 20 Meq) 20 meq PO DAILYCM [facility] Last Admin: 06/06/20 08:10 Dose: 20 meq Documented by: Senna/Docusate Sodium (Senna/Docusate Sodium 1 Tablet) 2 tablet PO DAILY [facility] Last Admin: 06/06/20 06:49 Dose: 2 tablet Documented by: Sodium Chloride (0.9% Saline Lock 10 Ml Syringe) 10 - 40 ml IV UD PRN PRN Reason: SALINE FLUSH Last Admin: 06/04/20 11:46 Dose: 10 ml Documented by: Tramadol HCl (Tramadol 50 Mg Tablet) 50 mg PO Q6H PRN PRN PRN Reason: pain 3-5 Last Admin: 06/05/20 08:45 Dose: 50 mg Documented by: Discharge Diet: No Restrictions Discharge Activity: Return to Normal Activity, May Shower, Use Walker Primary Care Physician: Saroj Fajardo DO [Primary Care Provider] - Please follow up with your Primary Care Physician in: As needed. Please Follow Up With: Saroj Fajardo DO When: 2 weeks Please Follow Up With: Ismael Babb MD When: N/A. Please Follow Up With: Chauncey Bardales MD When: N/A. Disposition: Hospice Medical Facility Minutes spent on discharge:: 35 Patient Condition:: Poor Medical Necessity - Tobacco Use Smoking Status: Never smoker Tobacco Use: Non-smoker Meaningful Use Info Meaningful Use Diagnoses (Choose all that apply): None applicable
--- NOTE | 2020-06-07 14:13 | MDS.RN ---
Information for the mds was obtained from review of the clinical record, interview of resident, staff, and direct observation of resident's care.
== END 2020-06-06 15:00 | disposition hospice, inpatient (51) | DRG 560 ==
PROVIDERS: Internal Medicine; Admitting Provider Family Medicine Geriatric Medicine; PCP Family Medicine; Visit Provider Family Medicine Geriatric Medicine
DX: M48.54XD Collapsed vertebra, not elsewhere classified, thoracic region, subsequent encounter for fracture with routine healing (principal); I13.0 Hypertensive heart and chronic kidney disease with heart failure and stage 1 through stage 4 chronic kidney disease, or unspecified chronic kidney disease; I50.32 Chronic diastolic (congestive) heart failure; I42.8 Other cardiomyopathies; Q21.1 Atrial septal defect; W19.XXXD Unspecified fall, subsequent encounter; S93.409D Sprain of unspecified ligament of unspecified ankle, subsequent encounter; I27.20 Pulmonary hypertension, unspecified; N18.31 Chronic kidney disease, stage 3a; I48.0 Paroxysmal atrial fibrillation; L89.890 Pressure ulcer of other site, unstageable; E78.5 Hyperlipidemia, unspecified; E03.9 Hypothyroidism, unspecified; K21.9 Gastro-esophageal reflux disease without esophagitis; E11.22 Type 2 diabetes mellitus with diabetic chronic kidney disease; M19.90 Unspecified osteoarthritis, unspecified site; F32.9 Major depressive disorder, single episode, unspecified; M40.209 Unspecified kyphosis, site unspecified; M10.9 Gout, unspecified; F03.90 Unspecified dementia, unspecified severity, without behavioral disturbance, psychotic disturbance, mood disturbance, and anxiety; F41.9 Anxiety disorder, unspecified; Z86.711 Personal history of pulmonary embolism; Z86.718 Personal history of other venous thrombosis and embolism; Z79.899 Other long term (current) drug therapy; Z79.01 Long term (current) use of anticoagulants; Z95.0 Presence of cardiac pacemaker
CPT/HCPCS: 36415; 71046; 80048; 80053; 80162; 81001; 82962; 83036; 83735; 84100; 84132; 85025; 87086; 87635; 92526; 92610; 97110; 97162; 97166; 97530; 97535; J7030; J7050; A4216; U0002